=== PATIENT | female | born 1935 | race Two or more races ===

== ENCOUNTER 2017-03-02 21:37 | Inpatient (IN) | payer MEDICARE, MEDICAID ==
[~2017-03-02] VITALS: Ht 152.4 cm; Wt 52.2 kg
[2017-03-02] MEDS ORDERED: Albuterol ud Inhalation HHN ONE (21:45)
[2017-03-02 21:50] VITALS: BP 108/90
[2017-03-02 22:19] LABS: MEAN CORPUSCULAR HEMOGLOBIN 35.7 PG (27.0-31.0); MEAN CORPUSCULAR HGB CONC 35.5 G/DL (32.0-36.0); MEAN CORPUSCULAR VOLUME 100 FL (80-99); MEAN PLATELET VOLUME 15.8 FL (6.5-10.1); PLATELET COUNT 162 K/UL (150-450); RED BLOOD COUNT 4.13 M/UL (4.20-5.40); RED CELL DISTRIBUTION WIDTH 11.6 % (11.6-14.8); WHITE BLOOD COUNT 17.4 K/UL (4.8-10.8)
[2017-03-02 22:26] LABS: PROTHROMBIN TIME 10.2 SEC (9.30-11.50)
[2017-03-02 22:38] LABS: TROPONIN I < 0.30 ng/mL (<=0.30)
[2017-03-02 22:41] LABS: ALANINE AMINOTRANSFERASE 14 U/L (3-33); ANION GAP 21 (5-15); ASPARTATE AMINO TRANSFERASE 32 U/L (5-40); CARBON DIOXIDE 21 mEQ/L (20-30); CHLORIDE 94 mEQ/L (98-107); CREATININE 1.4 mg/dL (0.5-0.9); HEMOLYSIS 42; POTASSIUM 4.7 mEQ/L (3.4-4.9); SODIUM 136 mEQ/L (135-145); TOTAL PROTEIN 7.9 g/dL (6.6-8.7)
[2017-03-02] MEDS ORDERED: Zosyn 4.5gm inj ONE (22:43)
[2017-03-02] MEDS ORDERED: Piperacillin/Tazobactam 4.5 GM in NS 110 ML IVPB ONE (22:45)
[2017-03-02 22:52] LABS: CKMB 1.6 ng/mL (< 3.8)
[2017-03-02 22:55] LABS: REFLEX LACTIC ACID YES OR NO YES
[2017-03-02 23:06] LABS: APPEARANCE,URINE CLEAR; KETONES,URINE 2+ (NEGATIVE); LEUKOCYTE ESTERASE ,URINE 3+ (NEGATIVE); NITRITE,URINE NEGATIVE (NEGATIVE); PH,URINE 6 (4.5-8.0); PROTEIN,URINE 3+ (NEGATIVE); UROBILINOGEN,URINE 4 MG/DL (0.0-1.0)
[2017-03-02 23:10] LABS: BAND NEUTROPHILS % (MANUAL) 17 % (0-8); BASOPHILS % (MANUAL) 0 % (0-2); EOSINOPHILS % (MANUAL) 0 % (0-3); LYMPHOCYTES % (MANUAL) 7 % (20-45); NEUTROPHILS % (MANUAL) 71 % (45-75); PLATELET ESTIMATE ADEQUATE; PLATELET MORPHOLOGY NORMAL; TOTAL CELLS COUNTED 100
[2017-03-02 23:16] VITALS: BP 119/57
[2017-03-02 23:19] LABS: AMORPHOUS SEDIMENT,UR FEW /LPF; BACTERIA,URINE FEW /HPF; ICTOTEST NEGATIVE; SQUAMOUS EPITHELIAL CELL,UR FEW /LPF (NONE/OCC)
[2017-03-03] VITALS (21 sets, daily range): BP systolic 96–152; BP diastolic 41–105
--- NOTE | 2017-03-03 01:28 | Emergency Room Report ---
History of Present Illness General Chief Complaint: Dyspnea/Respdistress Source: Family Member, Medical Record, EMS Present Illness HPI Is a 77-year-old female with multiple medical problem. She resides in a residential. She has a previous history of sepsis. She presents with chief complaint shortness of breath. Onset for couple days. No fever or chills. She does complain of tightness in his chest with breathing. Described as burning her son. Coughing is nonproductive in nature. Subjective fever. Allergies: Coded Allergies: LORAZEPAM (Unverified Allergy, Unknown, 03/02/17) METOCLOPRAMIDE (Unverified Allergy, Unknown, 03/02/17) QUETIAPINE (Unverified Allergy, Unknown, 03/02/17) ZOLPIDEM (Unverified Allergy, Unknown, 03/02/17) Patient History Past Medical History: see triage record, old chart reviewed Past Surgical History: other Pertinent Family History: none Social History: Denies: alcohol use, drug use, smoking Now: No Immunizations: other Reviewed Nursing Documentation: PMH: Agreed, PSxH: Agreed Nursing Documentation-PMH Hx Cardiac Problems: Yes - atherosclerotic heart disease,hyperlipidemia Hx Diabetes: Yes Hx Cerebrovascular Accident: Yes - hemiplegia,hemiparesis Review of Systems Constitutional: Reports: malaise, weakness Eye: Denies: blurred vision, eye pain ENT: Denies: ear pain, nose congestion, throat swelling Respiratory: Reports: cough, shortness of breath Cardiovascular: Denies: chest pain, palpitations Gastrointestinal: Denies: abdominal pain, diarrhea, nausea, vomiting Musculoskeletal: Denies: back pain, joint pain Skin: Denies: rash Neurological: Denies: headache, numbness Endocrine: Denies: increased thirst, increased urine Hematologic/Lymphatic: Denies: easy bruising All Other Systems: negative except mentioned in HPI Physical Exam Vital Signs Date Time Temp Pulse Resp B/P Pulse Ox O2 Delivery O2 Flow Rate FiO2 03/02/17 21:28 99.7 109 30 108/90 99 Non-Rebreather 03/02/17 21:50 15.0 03/02/17 22:07 100 vitals with hypoxia and fever Sp02 EP Interpretation: reviewed, abnormal General Appearance: well appearing, alert, moderate distress Head: normocephalic, atraumatic Eyes: bilateral eye EOMI, bilateral eye PERRL ENT: hearing grossly normal, normal pharynx Neck: full range of motion, supple, no meningismus Respiratory: chest non-tender, decreased breath sounds, accessory muscle use, rhonchi Cardiovascular #1: regular rate, rhythm, no murmur, tachycardia Gastrointestinal: normal bowel sounds, non tender, no mass, no organomegaly, no bruit, non-distended Musculoskeletal: back normal, normal range of motion Neurologic: alert Psychiatric: mood/affect normal Skin: warm/dry Procedures Critical Care Time Critical Care Time Critical care is mandated in this patient who presented with severe sepsis and hypoxia. Patient require my urgent intervention to attenuate the risks of metabolic collapse which may lead to cardiovascular collapse and . Critical care time is 35 minutes excluding any reportable procedure. Critical care time included evaluation, multiple reevaluation, looking at old charts, interpreting laboratory and diagnostic data, discussing case with patient and family and consultants, and charting. Medical Decision Making Diagnostic Impression: Primary Impression: Acute respiratory failure with hypoxia Additional Impressions: Severe sepsis Pneumonia Qualified Codes: J18.1 - Lobar pneumonia, unspecified organism UTI (urinary tract infection) Qualified Codes: N30.00 - Acute cystitis without hematuria Proteinuria Qualified Codes: R80.9 - Proteinuria, unspecified Hyperglycemia due to type 2 diabetes mellitus Qualified Codes: E11.65 - Type 2 diabetes mellitus with hyperglycemia ER Course Issue with severe sepsis and not to pneumonia and UTI. Biaxin IV fluid started. Patient improving. Repeat lactic acid is pending. No evidence of ACS , PE, dissection to name a few. Laboratory Tests Test 03/02/17 21:45 03/02/17 22:40 White Blood Count 17.4 K/UL (4.8-10.8) H Red Blood Count 4.13 M/UL (4.20-5.40) L Hemoglobin 14.7 G/DL (12.0-16.0) Hematocrit 41.4 % (37.0-47.0) Mean Corpuscular Volume 100 FL (80-99) H Mean Corpuscular Hemoglobin 35.7 PG (27.0-31.0) H Mean Corpuscular Hemoglobin Concent 35.5 G/DL (32.0-36.0) Red Cell Distribution Width 11.6 % (11.6-14.8) Platelet Count 162 K/UL (150-450) Mean Platelet Volume 15.8 FL (6.5-10.1) H Neutrophils (%) (Auto) % (45.0-75.0) Lymphocytes (%) (Auto) % (20.0-45.0) Monocytes (%) (Auto) % (1.0-10.0) Eosinophils (%) (Auto) % (0.0-3.0) Basophils (%) (Auto) % (0.0-2.0) Differential Total Cells Counted 100 Neutrophils % (Manual) 71 % (45-75) Lymphocytes % (Manual) 7 % (20-45) L Monocytes % (Manual) 5 % (1-10) Eosinophils % (Manual) 0 % (0-3) Basophils % (Manual) 0 % (0-2) Band Neutrophils 17 % (0-8) H Platelet Estimate Adequate Platelet Morphology Normal Red Blood Cell Morphology Normal Prothrombin Time 10.2 SEC (9.30-11.50) Prothromb Time International Ratio 1.0 (0.9-1.1) Activated Partial Thromboplast Time 21 SEC (23-33) L Sodium Level 136 mEQ/L (135-145) Potassium Level 4.7 mEQ/L (3.4-4.9) Chloride Level 94 mEQ/L (98-107) L Carbon Dioxide Level 21 mEQ/L (20-30) Anion Gap 21 (5-15) H Blood Urea Nitrogen 31 mg/dL (7-23) H Creatinine 1.4 mg/dL (0.5-0.9) H Estimat Glomerular Filtration Rate mL/min (>60) Glucose Level 262 mg/dL (74-106) H Lactic Acid Level 5.60 mmol/L (0.66-2.22) H Calcium Level 11.0 mg/dL (8.6-10.2) H Total Bilirubin 1.0 mg/dL (0.0-1.2) Aspartate Amino Transf (AST/SGOT) 32 U/L (5-40) Alanine Aminotransferase (ALT/SGPT) 14 U/L (3-33) Alkaline Phosphatase 102 U/L (35-104) Total Creatine Kinase 58 U/L (26-140) Creatine Kinase MB 1.6 ng/mL (< 3.8) Creatine Kinase MB Relative Index 2.7 Troponin I < 0.30 ng/mL (<=0.30) Pro-B-Type Natriuretic Peptide 1119 pg/mL (0-450) H Total Protein 7.9 g/dL (6.6-8.7) Albumin 4.0 g/dL (3.5-5.2) Globulin 3.9 g/dL Albumin/Globulin Ratio 1.0 (1.0-2.7) Urine Color Yellow Urine Appearance Clear Urine pH 6 (4.5-8.0) Urine Specific [place] 1.015 (1.005-1.035) Urine Protein 3+ (NEGATIVE) H Urine Glucose (UA) Negative (NEGATIVE) Urine Ketones 2+ (NEGATIVE) H Urine Occult Blood 2+ (NEGATIVE) H Urine Nitrite Negative (NEGATIVE) Urine Bilirubin 1+ (NEGATIVE) H Urine Ictotest Negative Urine Urobilinogen 4 MG/DL (0.0-1.0) H Urine Leukocyte Esterase 3+ (NEGATIVE) H Urine RBC 2-4 /HPF (0 - 2) H Urine WBC 5-10 /HPF (0 - 2) H Urine Squamous Epithelial Cells Few /LPF (NONE/OCC) Urine Amorphous Sediment Few /LPF (NONE) H Urine Bacteria Few /HPF (NONE) Lab Results Impression labs with leukocytosis and bandemia EKG Diagnostic Results EKG Time: :27 Rate: normal Rhythm: NSR, other - Nonspecific ST changes Rhythm Strip Diag. Results Rhythm Strip Time: :27 EP Interpretation: yes Rate: 100 Rhythm: NSR, no PVC's Chest X-Ray Diagnostic Results Chest X-Ray Diagnostic Results : Chest X-Ray Ordered: Yes # of Views/Limited/Complete: 1 View Indication: Shortness of Breath EP Interpretation: Yes Interpretation: no effusion, no pneumothorax, other - Right lower lobe density show infiltrates Impression: Other - Right lower lobe infiltrate Interpreting ER Provider: electronically signed by Vahid Recinos MD Last Vital Signs Date Time Temp Pulse Resp B/P Pulse Ox O2 Delivery O2 Flow Rate FiO2 03/02/17 23:16 117 22 119/57 100 Non-Rebreather 15.0 03/02/17 22:10 100 03/02/17 21:50 99.7 Status: improved Disposition: ADMITTED INPATIENT Condition: Serious Referrals: NON PHYSICIAN (PCP) VAHID RECINOS M.D. Mar 03, 2017 01:28
[2017-03-03 01:58] LABS: ABG ALLEN TEST POSITIVE; ABG BASE EXCESS -7.8; ABG PCO2 34.6 mmHg (35.0-45.0)
[2017-03-03] MEDS ORDERED: Vancomycin 1 GM in D5W 275 ML IVPB ONE (02:15)
[2017-03-03] MEDS ORDERED: Morphine Sulfate 4mg/ml Inj IVP PRN ×2 (07:30→22:00)
[2017-03-03] MEDS ORDERED: Miralax 17gm pkt ORAL PRN ×2 (07:30→22:00)
[2017-03-03] MEDS ORDERED: Promethazine/Codeine 5ml UD ORAL PRN ×2 (07:30→22:00)
[2017-03-03] MEDS ORDERED: DuoNeb 0.5-3(2.5)mg/3ml neb HHN PRN ×2 (07:30→22:00)
[2017-03-03] MEDS ORDERED: Vancomycin 750mg/D5W 275ml IVPB ONE ×2 (08:30)
[2017-03-03 08:37] LABS: APPEARANCE,URINE CLEAR; KETONES,URINE NEGATIVE (NEGATIVE); LEUKOCYTE ESTERASE ,URINE 1+ (NEGATIVE); NITRITE,URINE NEGATIVE (NEGATIVE); PH,URINE 7 (4.5-8.0); PROTEIN,URINE 2+ (NEGATIVE); UROBILINOGEN,URINE NORMAL MG/DL (0.0-1.0)
[2017-03-03 08:44] LABS: MEAN CORPUSCULAR HGB CONC 33.7 G/DL (32.0-36.0); MEAN CORPUSCULAR VOLUME 101 FL (80-99); MEAN PLATELET VOLUME 13.7 FL (6.5-10.1); PLATELET COUNT 127 K/UL (150-450); RED BLOOD COUNT 3.39 M/UL (4.20-5.40); RED CELL DISTRIBUTION WIDTH 11.9 % (11.6-14.8); WHITE BLOOD COUNT 4.2 K/UL (4.8-10.8)
[2017-03-03 08:50] LABS: BACTERIA,URINE FEW /HPF; SQUAMOUS EPITHELIAL CELL,UR FEW /LPF (NONE/OCC); WBC,URINE 0-2 /HPF (0 - 2)
[2017-03-03 08:52] LABS: ALANINE AMINOTRANSFERASE 9 U/L (3-33); ALBUMIN/GLOBULIN RATIO 1.1 (1.0-2.7); ANION GAP 13 (5-15); ASPARTATE AMINO TRANSFERASE 27 U/L (5-40); CALCIUM 9.3 mg/dL (8.6-10.2); CARBON DIOXIDE 21 mEQ/L (20-30); CHLORIDE 106 mEQ/L (98-107); CREATININE 1.1 mg/dL (0.5-0.9); HEMOLYSIS 4; POTASSIUM 3.9 mEQ/L (3.4-4.9); SODIUM 140 mEQ/L (135-145); TOTAL PROTEIN 6.3 g/dL (6.6-8.7); URIC ACID 4.4 mg/dL (3.0-7.5)
[2017-03-03] MEDS: Heparin 5000 units/ml inj SUBQ SCH ×2 (08:53→20:27)
[2017-03-03 08:54] LABS: REFLEX LACTIC ACID YES OR NO YES
[2017-03-03] MEDS ORDERED: Cefepime HCl 2 GM in D5W 110 ML IV SCH (09:00)
[2017-03-03 09:01] LABS: MAGNESIUM 1.6 mg/dL (1.7-2.5); PHOSPHORUS 1.9 mg/dL (2.5-4.8)
--- NOTE | 2017-03-03 09:24 | History and Physical ---
History of Present Illness General Date patient seen: Mar 03, 2017 Reason for Hospitalization: Dyspnea/Respdistress Present Illness HPI 77-year-old female with PMHx of Dementia, Gtube feeding, residential resident brought in by paramedics with chief complaint shortness of breath for couple of days. No fever or chills. She does complain of tightness in his chest with breathing. Coughing is nonproductive in nature. Subjective fever. She was found to have increased lactic acid and was high risk for respiratory failure. She is admitted to ICU for further evaluation. Allergies: Coded Allergies: LORAZEPAM (Unverified Allergy, Unknown, 03/02/17) METOCLOPRAMIDE (Unverified Allergy, Unknown, 03/02/17) QUETIAPINE (Unverified Allergy, Unknown, 03/02/17) ZOLPIDEM (Unverified Allergy, Unknown, 03/02/17) Patient History Healthcare decision maker Resuscitation status Full Code Advanced Directive on File No Past Medical/Surgical History Past Medical/Surgical History: (1) Advanced dementia (2) Feeding by G-tube Review of Systems All Other Systems: negative except mentioned in HPI Physical Exam General Appearance: cachetic Lines, tubes and drains: peripheral HEENT: normocephalic, atraumatic Neck: non-tender, supple Respiratory/Chest: chest wall non-tender, lungs clear Breasts: no masses Cardiovascular/Chest: normal peripheral pulses, regularly irregular Abdomen: normal bowel sounds Last 24 Hour Vital Signs Date Time Temp Pulse Resp B/P Pulse Ox O2 Delivery O2 Flow Rate FiO2 03/03/17 07:00 98 25 112/43 97 Non-Rebreather 100 03/03/17 06:00 101 25 152/80 97 Non-Rebreather 100 03/03/17 05:00 99 25 110/65 97 Non-Rebreather 100 03/03/17 04:08 115 25 104/65 97 Non-Rebreather 100 03/03/17 03:00 123 03/03/17 03:00 98.4 120 30 124/46 95 Non-Rebreather 100 03/03/17 02:25 113 22 148/105 98 Non-Rebreather 15.0 03/03/17 01:15 99.8 113 22 148/105 100 Non-Rebreather 15.0 03/02/17 23:16 117 22 119/57 100 Non-Rebreather 15.0 03/02/17 22:10 118 20 98 Non-Rebreather 15.0 100 03/02/17 22:09 109 20 97 Non-Rebreather 15.0 100 03/02/17 22:07 109 20 Non-Rebreather 15.0 100 03/02/17 21:50 109 30 Non-Rebreather 15.0 03/02/17 21:50 99.7 109 30 108/90 99 Non-Rebreather 03/02/17 21:28 99.7 109 30 108/90 99 Non-Rebreather Intake and Output 03/02/17 03/03/17 19:00 07:00 Intake Total 110 ml Output Total 252 ml Balance -142 ml Intake IV Total 110 ml Output Urine Total 250 ml Stool Total 2 ml # Bowel Movements 4 Laboratory Tests Test 03/02/17 21:43 03/02/17 21:45 03/02/17 22:40 03/03/17 00:30 Arterial Blood pH 7.319 (7.350-7.450) Arterial Blood Partial Pressure CO2 34.6 mmHg (35.0-45.0) L Arterial Blood Partial Pressure O2 76.3 mmHg (75.0-100.0) Arterial Blood HCO3 17.4 mmol/L (22.0-26.0) L Arterial Blood Oxygen Saturation 93.2 % (92.0-98.0) Arterial Blood Base Excess -7.8 Shaun Test Positive White Blood Count 17.4 K/UL (4.8-10.8) H Red Blood Count 4.13 M/UL (4.20-5.40) L Hemoglobin 14.7 G/DL (12.0-16.0) Hematocrit 41.4 % (37.0-47.0) Mean Corpuscular Volume 100 FL (80-99) H Mean Corpuscular Hemoglobin 35.7 PG (27.0-31.0) H Mean Corpuscular Hemoglobin Concent 35.5 G/DL (32.0-36.0) Red Cell Distribution Width 11.6 % (11.6-14.8) Platelet Count 162 K/UL (150-450) Mean Platelet Volume 15.8 FL (6.5-10.1) H Neutrophils (%) (Auto) % (45.0-75.0) Lymphocytes (%) (Auto) % (20.0-45.0) Monocytes (%) (Auto) % (1.0-10.0) Eosinophils (%) (Auto) % (0.0-3.0) Basophils (%) (Auto) % (0.0-2.0) Differential Total Cells Counted 100 Neutrophils % (Manual) 71 % (45-75) Lymphocytes % (Manual) 7 % (20-45) L Monocytes % (Manual) 5 % (1-10) Eosinophils % (Manual) 0 % (0-3) Basophils % (Manual) 0 % (0-2) Band Neutrophils 17 % (0-8) H Platelet Estimate Adequate Platelet Morphology Normal Red Blood Cell Morphology Normal Prothrombin Time 10.2 SEC (9.30-11.50) Prothromb Time International Ratio 1.0 (0.9-1.1) Activated Partial Thromboplast Time 21 SEC (23-33) L Sodium Level 136 mEQ/L (135-145) Potassium Level 4.7 mEQ/L (3.4-4.9) Chloride Level 94 mEQ/L (98-107) L Carbon Dioxide Level 21 mEQ/L (20-30) Anion Gap 21 (5-15) H Blood Urea Nitrogen 31 mg/dL (7-23) H Creatinine 1.4 mg/dL (0.5-0.9) H Estimat Glomerular Filtration Rate mL/min (>60) Glucose Level 262 mg/dL (74-106) H Lactic Acid Level 5.60 mmol/L (0.66-2.22) H 9.10 mmol/L (0.66-2.22) H Calcium Level 11.0 mg/dL (8.6-10.2) H Total Bilirubin 1.0 mg/dL (0.0-1.2) Aspartate Amino Transf (AST/SGOT) 32 U/L (5-40) Alanine Aminotransferase (ALT/SGPT) 14 U/L (3-33) Alkaline Phosphatase 102 U/L (35-104) Total Creatine Kinase 58 U/L (26-140) Creatine Kinase MB 1.6 ng/mL (< 3.8) Creatine Kinase MB Relative Index 2.7 Troponin I < 0.30 ng/mL (<=0.30) Pro-B-Type Natriuretic Peptide 1119 pg/mL (0-450) H Total Protein 7.9 g/dL (6.6-8.7) Albumin 4.0 g/dL (3.5-5.2) Globulin 3.9 g/dL Albumin/Globulin Ratio 1.0 (1.0-2.7) Urine Color Yellow Urine Appearance Clear Urine pH 6 (4.5-8.0) Urine Specific [place] 1.015 (1.005-1.035) Urine Protein 3+ (NEGATIVE) H Urine Glucose (UA) Negative (NEGATIVE) Urine Ketones 2+ (NEGATIVE) H Urine Occult Blood 2+ (NEGATIVE) H Urine Nitrite Negative (NEGATIVE) Urine Bilirubin 1+ (NEGATIVE) H Urine Ictotest Negative Urine Urobilinogen 4 MG/DL (0.0-1.0) H Urine Leukocyte Esterase 3+ (NEGATIVE) H Urine RBC 2-4 /HPF (0 - 2) H Urine WBC 5-10 /HPF (0 - 2) H Urine Squamous Epithelial Cells Few /LPF (NONE/OCC) Urine Amorphous Sediment Few /LPF (NONE) H Urine Bacteria Few /HPF (NONE) Test 03/03/17 07:30 03/03/17 07:45 Urine Color Pale yellow Urine Appearance Clear Urine pH 7 (4.5-8.0) Urine Specific [place] 1.005 (1.005-1.035) Urine Protein 2+ (NEGATIVE) H Urine Glucose (UA) 2+ (NEGATIVE) H Urine Ketones Negative (NEGATIVE) Urine Occult Blood 3+ (NEGATIVE) H Urine Nitrite Negative (NEGATIVE) Urine Bilirubin Negative (NEGATIVE) Urine Urobilinogen Normal MG/DL (0.0-1.0) Urine Leukocyte Esterase 1+ (NEGATIVE) H Urine RBC 5-10 /HPF (0 - 2) H Urine WBC 0-2 /HPF (0 - 2) Urine Squamous Epithelial Cells Few /LPF (NONE/OCC) Urine Bacteria Few /HPF (NONE) Urine Eosinophils Rare Urine Random Sodium 126 mmol/L Urine Potassium Timed 31 mmol/L White Blood Count 4.2 K/UL (4.8-10.8) #L Red Blood Count 3.39 M/UL (4.20-5.40) L Hemoglobin 11.5 G/DL (12.0-16.0) L Hematocrit 34.2 % (37.0-47.0) L Mean Corpuscular Volume 101 FL (80-99) H Mean Corpuscular Hemoglobin 34.0 PG (27.0-31.0) H Mean Corpuscular Hemoglobin Concent 33.7 G/DL (32.0-36.0) Red Cell Distribution Width 11.9 % (11.6-14.8) Platelet Count 127 K/UL (150-450) L Mean Platelet Volume 13.7 FL (6.5-10.1) H Neutrophils (%) (Auto) % (45.0-75.0) Lymphocytes (%) (Auto) % (20.0-45.0) Monocytes (%) (Auto) % (1.0-10.0) Eosinophils (%) (Auto) % (0.0-3.0) Basophils (%) (Auto) % (0.0-2.0) Neutrophils % (Manual) Pending Lymphocytes % (Manual) Pending Platelet Estimate Pending Platelet Morphology Pending Sodium Level 140 mEQ/L (135-145) Potassium Level 3.9 mEQ/L (3.4-4.9) Chloride Level 106 mEQ/L (98-107) Carbon Dioxide Level 21 mEQ/L (20-30) Anion Gap 13 (5-15) Blood Urea Nitrogen 27 mg/dL (7-23) H Creatinine 1.1 mg/dL (0.5-0.9) H Estimat Glomerular Filtration Rate mL/min (>60) Glucose Level 284 mg/dL (74-106) H Lactic Acid Level 4.30 mmol/L (0.66-2.22) H Uric Acid 4.4 mg/dL (3.0-7.5) Calcium Level 9.3 mg/dL (8.6-10.2) Phosphorus Level 1.9 mg/dL (2.5-4.8) L Magnesium Level 1.6 mg/dL (1.7-2.5) L Total Bilirubin 0.7 mg/dL (0.0-1.2) Aspartate Amino Transf (AST/SGOT) 27 U/L (5-40) Alanine Aminotransferase (ALT/SGPT) 9 U/L (3-33) Alkaline Phosphatase 66 U/L (35-104) Total Creatine Kinase 84 U/L (26-140) Total Protein 6.3 g/dL (6.6-8.7) L Albumin 3.3 g/dL (3.5-5.2) L Globulin 3.0 g/dL Albumin/Globulin Ratio 1.1 (1.0-2.7) Height (Feet): 5 Height (Inches): 11.00 Weight (Pounds): 107 Medications Current Medications Medications (Trade) Dose Ordered Sig/Ramiro Route PRN Reason Start Time Stop Time Status Last Admin Dose Admin Acetaminophen (Tylenol) 650 mg Q4H PRN ORAL fever>100.1 03/03/17 07:30 04/02/17 07:29 Albuterol/ Ipratropium 3 ml 3 ml Q4H PRN HHN Shortness of Breath 03/03/17 07:30 03/08/17 07:29 Cefepime HCl/ Dextrose (Maxipime/D5W) 110 ml @ 220 mls/hr Q24H IV 03/03/17 09:00 03/10/17 08:59 03/03/17 08:34 Dextrose (Dextrose 50%) STAT PRN IV Hypoglycemia 03/03/17 07:30 04/02/17 07:29 Heparin Sodium (Porcine) 5000 units 5,000 units EVERY 12 HOURS SUBQ 03/03/17 09:00 04/02/17 08:59 03/03/17 08:53 Insulin Aspart (NovoLOG) BEFORE MEALS AND HS SUBQ 03/03/17 11:30 04/02/17 11:29 Morphine Sulfate (Morphine Sulfate) 4 mg Q4H PRN IVP Severe Pain (Pain Scale 7-10) 03/03/17 07:30 03/10/17 07:29 Ondansetron HCl (Zofran) 4 mg Q6H PRN IVP Nausea & Vomiting 03/03/17 07:30 04/02/17 07:29 Polyethylene Glycol (Miralax) 17 gm DAILYPRN PRN ORAL Constipation 03/03/17 07:30 04/02/17 07:29 Promethazine HCl/ Codeine (Phenergan with Codeine) 5 ml Q4H PRN ORAL For Cough 03/03/17 07:30 04/02/17 07:29 Sodium Chloride 1,000 ml @ 50 mls/hr Q20H IV 03/03/17 08:00 04/02/17 07:59 03/03/17 08:00 Vancomycin HCl 750 mg/Dextrose 275 ml @ 183.708 mls/hr ONCE ONCE IVPB 03/03/17 08:30 03/03/17 09:59 03/03/17 08:34 Vancomycin HCl/ Dextrose (Vancomycin/D5W) 110 ml @ 110 mls/hr Q24H IVPB 03/04/17 08:00 03/09/17 07:59 Assessment/Plan Problem List: (1) Severe sepsis ICD Codes: A41.9 - Sepsis, unspecified organism; R65.20 - Severe sepsis without septic shock SNOMED: 73173652, 622898327 (2) Acute respiratory failure with hypoxia ICD Codes: J96.01 - Acute respiratory failure with hypoxia SNOMED: 43428133, 150076972 (3) Pneumonia ICD Codes: J18.9 - Pneumonia, unspecified organism SNOMED: 649269031, 55177070 Qualifiers: (4) Hyperglycemia due to type 2 diabetes mellitus ICD Codes: E11.65 - Type 2 diabetes mellitus with hyperglycemia SNOMED: 646245143591624, 48510084 Qualifiers: (5) UTI (urinary tract infection) ICD Codes: N39.0 - Urinary tract infection, site not specified SNOMED: 88583221, 12843750 Qualifiers: (6) Feeding by G-tube ICD Codes: Z93.1 - Gastrostomy status SNOMED: 386529312, 433649211 (7) Advanced dementia ICD Codes: F03.90 - Unspecified dementia without behavioral disturbance SNOMED: 67859448 Respiratory: monitor respiratory rate, adjust FIO2 Cardiac: continue to monitor HR/BP Renal: F/U I&O, keep IV fluid, check electrolytes, other - 1/2 ns 50n cc.hour Infectious Disease: continue antibiotics Gastrointestinal: continue feedings/current rate Endocrine: monitor blood sugar, check HgA1C Hematologic: monitor H/H, transfuse if hgb<8.5 Neurologic: PRN Ativan, PRN Morphine, keep patient comfortable Affect: PRN ativan Prophylaxis: Protonix Notes Reviewed: cardio Discussed with: nurses, consultants, counseling case manager ZAIRA ROSALES Mar 03, 2017 09:24
[2017-03-03 09:56] LABS: BAND NEUTROPHILS % (MANUAL) 30 % (0-8); BASOPHILS % (MANUAL) 0 % (0-2); EOSINOPHILS % (MANUAL) 0 % (0-3); LYMPHOCYTES % (MANUAL) 15 % (20-45); MACROCYTES 1+; NEUTROPHILS % (MANUAL) 49 % (45-75); PLATELET ESTIMATE DECREASED; PLATELET MORPHOLOGY NORMAL; TOTAL CELLS COUNTED 100
--- NOTE | 2017-03-03 10:17 | Diagnostic Imaging Report ---
Indication: Dyspnea Comparison: None A single view chest radiograph was obtained. Findings: Interstitial opacities are noted centrally at the lung bases as well. Heart size is normal. Bones are osteopenic. Aorta is calcified. There are cholecystectomy clips in the right upper quadrant of abdomen. Impression: Central infiltrates versus interstitial edema. Please correlate clinically
[2017-03-03] MEDS ORDERED: Sodium Phosphate 20 MM in NS 275 ML IV ONE (11:00)
[2017-03-03] MEDS ORDERED: Norco 5mg/325mg tab GT PRN ×3 (11:15→22:00)
[2017-03-03] MEDS ORDERED: NovoLOG Insulin Flexpen SUBQ SCH ×2 (11:30→18:00)
--- NOTE | 2017-03-03 13:01 | Infectious Diseases Prog Note ---
Assessment/Plan Assessment/Plan ID consult dictated # [id number] Subjective Allergies: Coded Allergies: LORAZEPAM (Unverified Allergy, Unknown, 03/02/17) METOCLOPRAMIDE (Unverified Allergy, Unknown, 03/02/17) QUETIAPINE (Unverified Allergy, Unknown, 03/02/17) ZOLPIDEM (Unverified Allergy, Unknown, 03/02/17) Objective Vital Signs Last 24 Hour Vital Signs Date Time Temp Pulse Resp B/P Pulse Ox O2 Delivery O2 Flow Rate FiO2 03/03/17 11:00 97 30 117/70 98 Venturi Mask 55 03/03/17 10:28 98 Venturi Mask 14.0 55 03/03/17 10:27 Venturi Mask 14.0 55 03/03/17 10:26 98 20 Venturi Mask 14.0 55 03/03/17 10:00 107 30 118/42 98 Venturi Mask 55 03/03/17 09:00 103 28 102/85 99 Non-Rebreather 100 03/03/17 08:00 98.5 99 25 107/66 100 Non-Rebreather 100 03/03/17 08:00 109 03/03/17 07:00 98 25 112/43 97 Non-Rebreather 100 03/03/17 06:00 101 25 152/80 97 Non-Rebreather 100 03/03/17 05:00 99 25 110/65 97 Non-Rebreather 100 03/03/17 04:08 115 25 104/65 97 Non-Rebreather 100 03/03/17 03:00 123 03/03/17 03:00 98.4 120 30 124/46 95 Non-Rebreather 100 03/03/17 02:25 113 22 148/105 98 Non-Rebreather 15.0 03/03/17 01:15 99.8 113 22 148/105 100 Non-Rebreather 15.0 03/02/17 23:16 117 22 119/57 100 Non-Rebreather 15.0 03/02/17 22:10 118 20 98 Non-Rebreather 15.0 100 03/02/17 22:09 109 20 97 Non-Rebreather 15.0 100 03/02/17 22:07 109 20 Non-Rebreather 15.0 100 03/02/17 21:50 109 30 Non-Rebreather 15.0 03/02/17 21:50 99.7 109 30 108/90 99 Non-Rebreather 03/02/17 21:28 99.7 109 30 108/90 99 Non-Rebreather Height (Feet): 5 Height (Inches): 11.00 Weight (Pounds): 107 Laboratory Tests Test 03/02/17 21:43 03/02/17 21:45 03/02/17 22:40 03/03/17 00:30 Arterial Blood pH 7.319 (7.350-7.450) Arterial Blood Partial Pressure CO2 34.6 mmHg (35.0-45.0) L Arterial Blood Partial Pressure O2 76.3 mmHg (75.0-100.0) Arterial Blood HCO3 17.4 mmol/L (22.0-26.0) L Arterial Blood Oxygen Saturation 93.2 % (92.0-98.0) Arterial Blood Base Excess -7.8 Shaun Test Positive White Blood Count 17.4 K/UL (4.8-10.8) H Red Blood Count 4.13 M/UL (4.20-5.40) L Hemoglobin 14.7 G/DL (12.0-16.0) Hematocrit 41.4 % (37.0-47.0) Mean Corpuscular Volume 100 FL (80-99) H Mean Corpuscular Hemoglobin 35.7 PG (27.0-31.0) H Mean Corpuscular Hemoglobin Concent 35.5 G/DL (32.0-36.0) Red Cell Distribution Width 11.6 % (11.6-14.8) Platelet Count 162 K/UL (150-450) Mean Platelet Volume 15.8 FL (6.5-10.1) H Neutrophils (%) (Auto) % (45.0-75.0) Lymphocytes (%) (Auto) % (20.0-45.0) Monocytes (%) (Auto) % (1.0-10.0) Eosinophils (%) (Auto) % (0.0-3.0) Basophils (%) (Auto) % (0.0-2.0) Differential Total Cells Counted 100 Neutrophils % (Manual) 71 % (45-75) Lymphocytes % (Manual) 7 % (20-45) L Monocytes % (Manual) 5 % (1-10) Eosinophils % (Manual) 0 % (0-3) Basophils % (Manual) 0 % (0-2) Band Neutrophils 17 % (0-8) H Platelet Estimate Adequate Platelet Morphology Normal Red Blood Cell Morphology Normal Prothrombin Time 10.2 SEC (9.30-11.50) Prothromb Time International Ratio 1.0 (0.9-1.1) Activated Partial Thromboplast Time 21 SEC (23-33) L Sodium Level 136 mEQ/L (135-145) Potassium Level 4.7 mEQ/L (3.4-4.9) Chloride Level 94 mEQ/L (98-107) L Carbon Dioxide Level 21 mEQ/L (20-30) Anion Gap 21 (5-15) H Blood Urea Nitrogen 31 mg/dL (7-23) H Creatinine 1.4 mg/dL (0.5-0.9) H Estimat Glomerular Filtration Rate mL/min (>60) Glucose Level 262 mg/dL (74-106) H Lactic Acid Level 5.60 mmol/L (0.66-2.22) H 9.10 mmol/L (0.66-2.22) H Calcium Level 11.0 mg/dL (8.6-10.2) H Total Bilirubin 1.0 mg/dL (0.0-1.2) Aspartate Amino Transf (AST/SGOT) 32 U/L (5-40) Alanine Aminotransferase (ALT/SGPT) 14 U/L (3-33) Alkaline Phosphatase 102 U/L (35-104) Total Creatine Kinase 58 U/L (26-140) Creatine Kinase MB 1.6 ng/mL (< 3.8) Creatine Kinase MB Relative Index 2.7 Troponin I < 0.30 ng/mL (<=0.30) Pro-B-Type Natriuretic Peptide 1119 pg/mL (0-450) H Total Protein 7.9 g/dL (6.6-8.7) Albumin 4.0 g/dL (3.5-5.2) Globulin 3.9 g/dL Albumin/Globulin Ratio 1.0 (1.0-2.7) Urine Color Yellow Urine Appearance Clear Urine pH 6 (4.5-8.0) Urine Specific [place] 1.015 (1.005-1.035) Urine Protein 3+ (NEGATIVE) H Urine Glucose (UA) Negative (NEGATIVE) Urine Ketones 2+ (NEGATIVE) H Urine Occult Blood 2+ (NEGATIVE) H Urine Nitrite Negative (NEGATIVE) Urine Bilirubin 1+ (NEGATIVE) H Urine Ictotest Negative Urine Urobilinogen 4 MG/DL (0.0-1.0) H Urine Leukocyte Esterase 3+ (NEGATIVE) H Urine RBC 2-4 /HPF (0 - 2) H Urine WBC 5-10 /HPF (0 - 2) H Urine Squamous Epithelial Cells Few /LPF (NONE/OCC) Urine Amorphous Sediment Few /LPF (NONE) H Urine Bacteria Few /HPF (NONE) Test 03/03/17 07:30 03/03/17 07:45 Urine Color Pale yellow Urine Appearance Clear Urine pH 7 (4.5-8.0) Urine Specific [place] 1.005 (1.005-1.035) Urine Protein 2+ (NEGATIVE) H Urine Glucose (UA) 2+ (NEGATIVE) H Urine Ketones Negative (NEGATIVE) Urine Occult Blood 3+ (NEGATIVE) H Urine Nitrite Negative (NEGATIVE) Urine Bilirubin Negative (NEGATIVE) Urine Urobilinogen Normal MG/DL (0.0-1.0) Urine Leukocyte Esterase 1+ (NEGATIVE) H Urine RBC 5-10 /HPF (0 - 2) H Urine WBC 0-2 /HPF (0 - 2) Urine Squamous Epithelial Cells Few /LPF (NONE/OCC) Urine Bacteria Few /HPF (NONE) Urine Eosinophils Rare Urine Random Sodium 126 mmol/L Urine Potassium Timed 31 mmol/L White Blood Count 4.2 K/UL (4.8-10.8) #L Red Blood Count 3.39 M/UL (4.20-5.40) L Hemoglobin 11.5 G/DL (12.0-16.0) L Hematocrit 34.2 % (37.0-47.0) L Mean Corpuscular Volume 101 FL (80-99) H Mean Corpuscular Hemoglobin 34.0 PG (27.0-31.0) H Mean Corpuscular Hemoglobin Concent 33.7 G/DL (32.0-36.0) Red Cell Distribution Width 11.9 % (11.6-14.8) Platelet Count 127 K/UL (150-450) L Mean Platelet Volume 13.7 FL (6.5-10.1) H Neutrophils (%) (Auto) % (45.0-75.0) Lymphocytes (%) (Auto) % (20.0-45.0) Monocytes (%) (Auto) % (1.0-10.0) Eosinophils (%) (Auto) % (0.0-3.0) Basophils (%) (Auto) % (0.0-2.0) Differential Total Cells Counted 100 Neutrophils % (Manual) 49 % (45-75) Lymphocytes % (Manual) 15 % (20-45) L Monocytes % (Manual) 6 % (1-10) Eosinophils % (Manual) 0 % (0-3) Basophils % (Manual) 0 % (0-2) Band Neutrophils 30 % (0-8) H Platelet Estimate Decreased L Platelet Morphology Normal Macrocytosis 1+ Sodium Level 140 mEQ/L (135-145) Potassium Level 3.9 mEQ/L (3.4-4.9) Chloride Level 106 mEQ/L (98-107) Carbon Dioxide Level 21 mEQ/L (20-30) Anion Gap 13 (5-15) Blood Urea Nitrogen 27 mg/dL (7-23) H Creatinine 1.1 mg/dL (0.5-0.9) H Estimat Glomerular Filtration Rate mL/min (>60) Glucose Level 284 mg/dL (74-106) H Lactic Acid Level 4.30 mmol/L (0.66-2.22) H Uric Acid 4.4 mg/dL (3.0-7.5) Calcium Level 9.3 mg/dL (8.6-10.2) Phosphorus Level 1.9 mg/dL (2.5-4.8) L Magnesium Level 1.6 mg/dL (1.7-2.5) L Total Bilirubin 0.7 mg/dL (0.0-1.2) Aspartate Amino Transf (AST/SGOT) 27 U/L (5-40) Alanine Aminotransferase (ALT/SGPT) 9 U/L (3-33) Alkaline Phosphatase 66 U/L (35-104) Lactate Dehydrogenase 220 U/L (135-230) Total Creatine Kinase 84 U/L (26-140) Total Protein 6.3 g/dL (6.6-8.7) L Albumin 3.3 g/dL (3.5-5.2) L Globulin 3.0 g/dL Albumin/Globulin Ratio 1.1 (1.0-2.7) Current Medications Medications (Trade) Dose Ordered Sig/Ramiro Route PRN Reason Start Time Stop Time Status Last Admin Dose Admin Acetaminophen (Tylenol) 650 mg Q4H PRN ORAL fever>100.1 03/03/17 07:30 04/02/17 07:29 Acetaminophen/ Hydrocodone Bitart ([place] 5/325) 2 tab Q6H PRN GT Moderate Pain (Pain Scale 4-6) 03/03/17 12:00 03/10/17 11:59 03/03/17 11:53 Albuterol/ Ipratropium 3 ml 3 ml Q4H PRN HHN Shortness of Breath 03/03/17 07:30 03/08/17 07:29 Cefepime HCl/ Dextrose (Maxipime/D5W) 110 ml @ 220 mls/hr Q24H IV 03/03/17 09:00 03/10/17 08:59 03/03/17 08:34 Dextrose (Dextrose 50%) STAT PRN IV Hypoglycemia 03/03/17 07:30 04/02/17 07:29 Famotidine (Pepcid I.v.) 20 mg Q12HR IVP 03/03/17 21:00 04/02/17 20:59 Heparin Sodium (Porcine) 5000 units 5,000 units EVERY 12 HOURS SUBQ 03/03/17 09:00 04/02/17 08:59 03/03/17 08:53 Insulin Aspart (NovoLOG) BEFORE MEALS AND HS SUBQ 03/03/17 11:30 04/02/17 11:29 03/03/17 11:39 Magnesium Sulfate (Magnesium Sulfate 1gm/100ml) 100 ml @ 100 mls/hr Q1H IVPB 03/03/17 17:00 03/03/17 18:59 Morphine Sulfate (Morphine Sulfate) 4 mg Q4H PRN IVP Severe Pain (Pain Scale 7-10) 03/03/17 07:30 03/10/17 07:29 Ondansetron HCl (Zofran) 4 mg Q6H PRN IVP Nausea & Vomiting 03/03/17 07:30 04/02/17 07:29 Polyethylene Glycol (Miralax) 17 gm DAILYPRN PRN ORAL Constipation 03/03/17 07:30 04/02/17 07:29 Promethazine HCl/ Codeine (Phenergan with Codeine) 5 ml Q4H PRN ORAL For Cough 03/03/17 07:30 04/02/17 07:29 Sodium Chloride 1,000 ml @ 50 mls/hr Q20H IV 03/03/17 08:00 04/02/17 07:59 03/03/17 08:00 Sodium Phosphate 20 mm/Sodium Chloride 281.6667 ml @ 46.9 mls/hr ONCE ONCE IV 03/03/17 11:00 03/03/17 17:00 03/03/17 11:53 Vancomycin HCl 500 mg/Dextrose 110 ml @ 110 mls/hr Q24H IVPB 03/04/17 08:00 03/09/17 07:59 LEON HINES Mar 03, 2017 13:01
[2017-03-03] MEDS ORDERED: 1/2 NS 1000ml IV ONE (16:52)
[2017-03-03] MEDS ORDERED: Tubing IV Secondary IV ONE (16:52)
--- NOTE | 2017-03-03 17:50 | Cardiology Report ---
APPROVED REPORT EKG Measurement Heart [id number] Sinus tachycardia Right bundle branch block Septal infarct, age undetermined Abnormal ECG
[2017-03-03] MEDS ORDERED: Famotidine 20 MG/ 2ML VIAL IVP SCH (21:00)
[2017-03-03] MEDS ORDERED: Vancomycin 1 GM in D5W 275 ML IV SCH (23:00)
[2017-03-03] MEDS: NovoLOG Insulin Flexpen SUBQ SCH (23:09)
[2017-03-04] VITALS: BP 112/75
[2017-03-04 04:00] VITALS: BP 118/72
[2017-03-04 05:12] LABS: BASOPHILS % (AUTO) 0.9 % (0.0-2.0); EOSINOPHILS % (AUTO) 4.4 % (0.0-3.0); LYMPHOCYTES % (AUTO) 7.6 % (20.0-45.0); MEAN CORPUSCULAR HEMOGLOBIN 35.8 PG (27.0-31.0); MEAN CORPUSCULAR HGB CONC 35.6 G/DL (32.0-36.0); MEAN CORPUSCULAR VOLUME 101 FL (80-99); MEAN PLATELET VOLUME 13.6 FL (6.5-10.1); MONOCYTES % (AUTO) 4.7 % (1.0-10.0); NEUTROPHILS % (AUTO) 82.4 % (45.0-75.0); PLATELET COUNT 112 K/UL (150-450); RED BLOOD COUNT 2.96 M/UL (4.20-5.40); RED CELL DISTRIBUTION WIDTH 11.6 % (11.6-14.8); WHITE BLOOD COUNT 8.2 K/UL (4.8-10.8)
[2017-03-04] MEDS: NovoLOG Insulin Flexpen SUBQ SCH ×4 (05:17→23:57)
[2017-03-04 05:47] LABS: ANION GAP 12 (5-15); CALCIUM 8.6 mg/dL (8.6-10.2); CARBON DIOXIDE 20 mEQ/L (20-30); CHLORIDE 105 mEQ/L (98-107); CREATININE 0.8 mg/dL (0.5-0.9); HEMOLYSIS 3; PHOSPHORUS 2.2 mg/dL (2.5-4.8); POTASSIUM 3.3 mEQ/L (3.4-4.9); SODIUM 137 mEQ/L (135-145)
[2017-03-04 07:58] VITALS: BP 112/68
[2017-03-04] MEDS ORDERED: Vancomycin 500 MG in D5W 110 ML IVPB SCH (08:00)
[2017-03-04] MEDS ORDERED: Vancomycin 500mg in D5W 110ml IVPB SCH (08:00)
--- NOTE | 2017-03-04 08:30 | Diagnostic Imaging Report ---
Indication:Elevated Bun and Creatinine. Technique: Grayscale and duplex Doppler imaging of the kidneys performed. Comparison: None Findings: The size, contour, and echogenicity of both kidneys are within normal limits. Right kidney is small measuring 8 cm. The left kidney is 9.2 cm in length. There is no hydronephrosis. The IVC is unremarkable. Bladder not seen presumably nondistended. Impression: Small right kidney. Negative exam otherwise
--- NOTE | 2017-03-04 08:45 | Infectious Diseases Prog Note ---
Assessment/Plan Assessment/Plan A; Sever sepsis Bacteremia Pneumonia Dementia Acute renal failure resolved Hypoxemic respiratory failure P: Continue Cefepime & Vancomycin will f/u cultures Subjective ROS Limited/Unobtainable: Yes Constitutional: Reports: other - doing better transferred from ICU to [facility] Allergies: Coded Allergies: LORAZEPAM (Unverified Allergy, Unknown, 03/02/17) METOCLOPRAMIDE (Unverified Allergy, Unknown, 03/02/17) QUETIAPINE (Unverified Allergy, Unknown, 03/02/17) ZOLPIDEM (Unverified Allergy, Unknown, 03/02/17) Objective Vital Signs Last 24 Hour Vital Signs Date Time Temp Pulse Resp B/P Pulse Ox O2 Delivery O2 Flow Rate FiO2 03/04/17 07:58 97.9 89 21 112/68 100 Venturi Mask 55 03/04/17 07:54 89 03/04/17 06:31 92 20 Venturi Mask 14.0 55 03/04/17 06:31 Venturi Mask 14.0 55 03/04/17 06:31 98 Venturi Mask 14.0 55 03/04/17 04:00 86 03/04/17 04:00 98.6 81 20 118/72 100 Venturi Mask 55 03/04/17 00:00 98.2 78 22 112/75 100 Venturi Mask 55 03/04/17 00:00 88 03/03/17 22:15 82 03/03/17 21:08 98.3 82 20 102/64 100 Venturi Mask 55 03/03/17 21:00 88 26 98/56 100 Venturi Mask 55 03/03/17 20:00 90 03/03/17 20:00 98.5 90 22 98/60 100 Venturi Mask 55 03/03/17 19:30 99 Venturi Mask 14.0 55 03/03/17 19:30 Venturi Mask 14.0 55 03/03/17 19:30 90 20 Venturi Mask 14.0 55 03/03/17 19:00 94 29 113/56 100 Venturi Mask 55 03/03/17 18:00 95 29 119/49 100 Venturi Mask 55 03/03/17 17:00 95 29 111/41 95 Venturi Mask 55 03/03/17 16:00 98.3 92 29 96/54 95 Venturi Mask 55 03/03/17 16:00 99 03/03/17 15:00 87 29 121/71 95 Venturi Mask 55 03/03/17 14:00 88 29 131/60 94 Venturi Mask 55 03/03/17 13:00 98 30 132/97 100 Venturi Mask 55 03/03/17 12:00 98 03/03/17 12:00 99.0 97 30 129/70 98 Venturi Mask 55 03/03/17 11:00 97 30 117/70 98 Venturi Mask 55 03/03/17 10:28 98 Venturi Mask 14.0 55 03/03/17 10:27 Venturi Mask 14.0 55 03/03/17 10:26 98 20 Venturi Mask 14.0 55 03/03/17 10:00 107 30 118/42 98 Venturi Mask 55 03/03/17 09:00 103 28 102/85 99 Non-Rebreather 100 Height (Feet): 5 Height (Inches): 11.00 Weight (Pounds): 124 General Appearance: no acute distress HEENT: mucous membranes moist, other Respiratory/Chest: other - few rhonchi, O2 by mask Cardiovascular: normal rate Abdomen: soft, non tender, other - GT feeding Extremities: no edema Neurologic/Psychiatric: disoriented, aphasia Musculoskeletal: atrophy Microbiology Date/Time Source Procedure Growth Status 03/02/17 21:45 Blood Blood Culture - Preliminary Resulted Laboratory Tests Test 03/04/17 03:15 White Blood Count 8.2 K/UL (4.8-10.8) # Red Blood Count 2.96 M/UL (4.20-5.40) L Hemoglobin 10.6 G/DL (12.0-16.0) L Hematocrit 29.7 % (37.0-47.0) L Mean Corpuscular Volume 101 FL (80-99) H Mean Corpuscular Hemoglobin 35.8 PG (27.0-31.0) H Mean Corpuscular Hemoglobin Concent 35.6 G/DL (32.0-36.0) Red Cell Distribution Width 11.6 % (11.6-14.8) Platelet Count 112 K/UL (150-450) L Mean Platelet Volume 13.6 FL (6.5-10.1) H Neutrophils (%) (Auto) 82.4 % (45.0-75.0) H Lymphocytes (%) (Auto) 7.6 % (20.0-45.0) L Monocytes (%) (Auto) 4.7 % (1.0-10.0) Eosinophils (%) (Auto) 4.4 % (0.0-3.0) H Basophils (%) (Auto) 0.9 % (0.0-2.0) Sodium Level 137 mEQ/L (135-145) Potassium Level 3.3 mEQ/L (3.4-4.9) L Chloride Level 105 mEQ/L (98-107) Carbon Dioxide Level 20 mEQ/L (20-30) Anion Gap 12 (5-15) Blood Urea Nitrogen 23 mg/dL (7-23) Creatinine 0.8 mg/dL (0.5-0.9) Estimat Glomerular Filtration Rate mL/min (>60) Glucose Level 151 mg/dL (74-106) #H Calcium Level 8.6 mg/dL (8.6-10.2) Phosphorus Level 2.2 mg/dL (2.5-4.8) L Albumin 2.5 g/dL (3.5-5.2) L Current Medications Medications (Trade) Dose Ordered Sig/Ramiro Route PRN Reason Start Time Stop Time Status Last Admin Dose Admin Acetaminophen (Tylenol) 650 mg Q4H PRN ORAL fever>100.1 03/03/17 22:00 04/02/17 21:59 Acetaminophen/ Hydrocodone Bitart ([place] 5/325) 2 tab Q6H PRN GT Moderate Pain (Pain Scale 4-6) 03/03/17 22:00 03/10/17 21:59 Albuterol/ Ipratropium (DuoNeb 0.5-3(2.5)mg/3ml) 3 ml Q4H PRN HHN Shortness of Breath 03/03/17 22:00 03/08/17 21:59 Cefepime HCl 2 gm/ Dextrose 110 ml @ 220 mls/hr Q24H IV 03/04/17 09:00 03/11/17 08:59 Dextrose (Dextrose 50%) STAT PRN IV Hypoglycemia 03/03/17 22:00 04/02/17 21:59 Famotidine (Pepcid I.v.) 20 mg Q12HR IVP 03/04/17 09:00 04/03/17 08:59 Heparin Sodium (Porcine) (Heparin 5000 units/ml) 5,000 units EVERY 12 HOURS SUBQ 03/04/17 09:00 04/03/17 08:59 Insulin Aspart (NovoLOG) EVERY 6 HOURS SUBQ 03/04/17 00:00 04/03/17 00:00 03/04/17 05:17 Morphine Sulfate (Morphine Sulfate) 4 mg Q4H PRN IVP Severe Pain (Pain Scale 7-10) 03/03/17 22:00 03/10/17 21:59 Ondansetron HCl (Zofran) 4 mg Q6H PRN IVP Nausea & Vomiting 03/03/17 22:00 04/02/17 21:59 Polyethylene Glycol (Miralax) 17 gm DAILYPRN PRN ORAL Constipation 03/03/17 22:00 04/02/17 21:59 Promethazine HCl/ Codeine (Phenergan with Codeine) 5 ml Q4H PRN ORAL For Cough 03/03/17 22:00 04/02/17 21:59 Sodium Chloride 1,000 ml @ 50 mls/hr Q20H IV 03/03/17 22:00 04/02/17 21:59 03/03/17 21:50 Vancomycin HCl/ Dextrose (Vancomycin/D5W) 110 ml @ 110 mls/hr Q24H IVPB 03/04/17 08:00 03/09/17 07:59 LEON HINES Mar 04, 2017 08:45
[2017-03-04] MEDS: Heparin 5000 units/ml inj SUBQ SCH ×2 (08:51→21:14)
[2017-03-04] MEDS ORDERED: Cefepime HCl 2 GM in D5W 110 ML IV SCH (09:00)
[2017-03-04] MEDS ORDERED: Famotidine 20 MG/ 2ML VIAL IVP SCH ×2 (09:00→21:00)
--- NOTE | 2017-03-04 10:32 | Pulmonology Progress Note ---
Assessment/Plan Problems: (1) Severe sepsis (2) Acute respiratory failure with hypoxia (3) Pneumonia (4) Hyperglycemia due to type 2 diabetes mellitus (5) UTI (urinary tract infection) (6) Feeding by G-tube (7) Anemia (8) Advanced dementia Assessment/Plan wbc lower, afebrile no cultures yet anemia w/u tolerating gtube feeding K supplement DVT prophylaxis. Subjective ROS Limited/Unobtainable: No HEENT: Repors: no symptoms Allergies: Coded Allergies: LORAZEPAM (Unverified Allergy, Unknown, 03/02/17) METOCLOPRAMIDE (Unverified Allergy, Unknown, 03/02/17) QUETIAPINE (Unverified Allergy, Unknown, 03/02/17) ZOLPIDEM (Unverified Allergy, Unknown, 03/02/17) Objective Last 24 Hour Vital Signs Date Time Temp Pulse Resp B/P Pulse Ox O2 Delivery O2 Flow Rate FiO2 03/04/17 07:58 97.9 89 21 112/68 100 Venturi Mask 55 03/04/17 07:54 89 03/04/17 06:31 92 20 Venturi Mask 14.0 55 03/04/17 06:31 Venturi Mask 14.0 55 03/04/17 06:31 98 Venturi Mask 14.0 55 03/04/17 04:00 86 03/04/17 04:00 98.6 81 20 118/72 100 Venturi Mask 55 03/04/17 00:00 98.2 78 22 112/75 100 Venturi Mask 55 03/04/17 00:00 88 03/03/17 22:15 82 03/03/17 21:08 98.3 82 20 102/64 100 Venturi Mask 55 03/03/17 21:00 88 26 98/56 100 Venturi Mask 55 03/03/17 20:00 90 03/03/17 20:00 98.5 90 22 98/60 100 Venturi Mask 55 03/03/17 19:30 99 Venturi Mask 14.0 55 03/03/17 19:30 Venturi Mask 14.0 55 03/03/17 19:30 90 20 Venturi Mask 14.0 55 03/03/17 19:00 94 29 113/56 100 Venturi Mask 55 03/03/17 18:00 95 29 119/49 100 Venturi Mask 55 03/03/17 17:00 95 29 111/41 95 Venturi Mask 55 03/03/17 16:00 98.3 92 29 96/54 95 Venturi Mask 55 03/03/17 16:00 99 03/03/17 15:00 87 29 121/71 95 Venturi Mask 55 03/03/17 14:00 88 29 131/60 94 Venturi Mask 55 03/03/17 13:00 98 30 132/97 100 Venturi Mask 55 03/03/17 12:00 98 03/03/17 12:00 99.0 97 30 129/70 98 Venturi Mask 55 03/03/17 11:00 97 30 117/70 98 Venturi Mask 55 Intake and Output 03/03/17 03/04/17 19:00 07:00 Intake Total 1007.6 ml 880 ml Output Total 870 ml 435 ml Balance 137.6 ml 445 ml Intake IV Total 847.6 ml 460 ml Tube Feeding 160 ml 420 ml Output Urine Total 870 ml 435 ml # Bowel Movements 3 General Appearance: WD/WN, no acute distress HEENT: normocephalic, atraumatic Respiratory/Chest: chest wall non-tender, lungs clear Cardiovascular: normal peripheral pulses, normal rate Abdomen: normal bowel sounds, soft, non tender Genitourinary: normal external genitalia 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 Lymphatic: no neck adenopathy, no groin adenopathy Microbiology Date/Time Source Procedure Growth Status 03/02/17 21:45 Blood Blood Culture - Preliminary Resulted Laboratory Tests 03/04/17 03:15: White Blood Count 8.2#, Red Blood Count 2.96L, Hemoglobin 10.6L, Hematocrit 29.7L, Mean Corpuscular Volume 101H, Mean Corpuscular Hemoglobin 35.8H, Mean Corpuscular Hemoglobin Concent 35.6, Red Cell Distribution Width 11.6, Platelet Count 112L, Mean Platelet Volume 13.6H, Neutrophils (%) (Auto) 82.4H, Lymphocytes (%) (Auto) 7.6L, Monocytes (%) (Auto) 4.7, Eosinophils (%) (Auto) 4.4H, Basophils (%) (Auto) 0.9, Sodium Level 137, Potassium Level 3.3L, Chloride Level 105, Carbon Dioxide Level 20, Anion Gap 12, Blood Urea Nitrogen 23, Creatinine 0.8, Estimat Glomerular Filtration Rate , Glucose Level 151#H, Calcium Level 8.6, Phosphorus Level 2.2L, Albumin 2.5L Current Medications Medications (Trade) Dose Ordered Sig/Ramiro Route PRN Reason Start Time Stop Time Status Last Admin Dose Admin Acetaminophen (Tylenol) 650 mg Q4H PRN ORAL fever>100.1 03/03/17 22:00 04/02/17 21:59 Acetaminophen/ Hydrocodone Bitart ([place] 5/325) 2 tab Q6H PRN GT Moderate Pain (Pain Scale 4-6) 03/03/17 22:00 03/10/17 21:59 Albuterol/ Ipratropium (DuoNeb 0.5-3(2.5)mg/3ml) 3 ml Q4H PRN HHN Shortness of Breath 03/03/17 22:00 03/08/17 21:59 Cefepime HCl 2 gm/ Dextrose 110 ml @ 220 mls/hr Q24H IV 03/04/17 09:00 03/11/17 08:59 03/04/17 08:49 Dextrose (Dextrose 50%) STAT PRN IV Hypoglycemia 03/03/17 22:00 04/02/17 21:59 Famotidine (Pepcid I.v.) 20 mg Q12HR IVP 03/04/17 09:00 04/03/17 08:59 03/04/17 08:49 Heparin Sodium (Porcine) (Heparin 5000 units/ml) 5,000 units EVERY 12 HOURS SUBQ 03/04/17 09:00 04/03/17 08:59 03/04/17 08:51 Insulin Aspart (NovoLOG) EVERY 6 HOURS SUBQ 03/04/17 00:00 04/03/17 00:00 03/04/17 05:17 Morphine Sulfate (Morphine Sulfate) 4 mg Q4H PRN IVP Severe Pain (Pain Scale 7-10) 03/03/17 22:00 03/10/17 21:59 Ondansetron HCl (Zofran) 4 mg Q6H PRN IVP Nausea & Vomiting 03/03/17 22:00 04/02/17 21:59 Polyethylene Glycol (Miralax) 17 gm DAILYPRN PRN ORAL Constipation 03/03/17 22:00 04/02/17 21:59 Potassium Chloride (KCl 10% 40mEq Oral solution) 40 meq ONCE ONCE NG 03/04/17 11:00 03/04/17 11:01 Promethazine HCl/ Codeine (Phenergan with Codeine) 5 ml Q4H PRN ORAL For Cough 03/03/17 22:00 04/02/17 21:59 Sodium Chloride 1,000 ml @ 50 mls/hr Q20H IV 03/03/17 22:00 04/02/17 21:59 03/04/17 08:49 Vancomycin HCl/ Dextrose (Vancomycin/D5W) 110 ml @ 110 mls/hr Q24H IVPB 03/04/17 08:00 03/09/17 07:59 03/04/17 08:48 ZAIRA ROSALES Mar 04, 2017 10:32
[2017-03-04] MEDS ORDERED: KCl 10% 40mEq/30ml liquid NG ONE (11:00)
[2017-03-04 12:08] VITALS: BP 103/71
[2017-03-04 12:23] LABS: OTHERS PATHOLOGIST COMMENT
[2017-03-04 16:00] VITALS: BP 140/69
[2017-03-04 19:57] VITALS: BP 138/68
[2017-03-04] MEDS ORDERED: Miralax 17gm pkt ORAL PRN (22:00)
[2017-03-04] MEDS ORDERED: Promethazine/Codeine 5ml UD ORAL PRN (22:00)
[2017-03-04] MEDS ORDERED: Morphine Sulfate 4mg/ml Inj IVP PRN (22:00)
[2017-03-05] VITALS: BP 110/37
[2017-03-05] MEDS ORDERED: Norco 5mg/325mg tab GT PRN (03:00)
[2017-03-05 03:40] VITALS: BP 102/64
[2017-03-05] MEDS: NovoLOG Insulin Flexpen SUBQ SCH ×3 (06:12→18:03)
[2017-03-05 06:37] LABS: MEAN CORPUSCULAR HEMOGLOBIN 35.6 PG (27.0-31.0); MEAN CORPUSCULAR HGB CONC 35.1 G/DL (32.0-36.0); MEAN CORPUSCULAR VOLUME 101 FL (80-99); MEAN PLATELET VOLUME 12.8 FL (6.5-10.1); PLATELET COUNT 125 K/UL (150-450); RED BLOOD COUNT 3.04 M/UL (4.20-5.40); RED CELL DISTRIBUTION WIDTH 11.9 % (11.6-14.8); WHITE BLOOD COUNT 11.1 K/UL (4.8-10.8)
[2017-03-05 06:45] LABS: INR 0.9 (0.9-1.1); PROTHROMBIN TIME 9.4 SEC (9.30-11.50)
[2017-03-05 06:57] LABS: ALANINE AMINOTRANSFERASE 12 U/L (3-33); ALBUMIN/GLOBULIN RATIO 0.7 (1.0-2.7); ANION GAP 11 (5-15); ASPARTATE AMINO TRANSFERASE 28 U/L (5-40); CALCIUM 9.5 mg/dL (8.6-10.2); CARBON DIOXIDE 23 mEQ/L (20-30); CHLORIDE 104 mEQ/L (98-107); CREATININE 0.8 mg/dL (0.5-0.9); HEMOLYSIS 2; POTASSIUM 4.7 mEQ/L (3.4-4.9); SODIUM 138 mEQ/L (135-145); TOTAL PROTEIN 6.4 g/dL (6.6-8.7)
[2017-03-05 07:23] LABS: PHOSPHORUS 0.9 mg/dL (2.5-4.8)
[2017-03-05 08:00] VITALS: BP 108/54
[2017-03-05] MEDS: Heparin 2000 units/Ns 1000ml INJ SCH (08:00)
[2017-03-05 08:14] LABS: BAND NEUTROPHILS % (MANUAL) 5 % (0-8); BASOPHILS % (MANUAL) 0 % (0-2); EOSINOPHILS % (MANUAL) 4 % (0-3); LYMPHOCYTES % (MANUAL) 7 % (20-45); NEUTROPHILS % (MANUAL) 80 % (45-75); PLATELET ESTIMATE DECREASED; PLATELET MORPHOLOGY NORMAL; TOTAL CELLS COUNTED 100
[2017-03-05] MEDS: Vancomycin 500 MG in D5W 110 ML IVPB SCH (08:15)
[2017-03-05 08:16] LABS: ANISOCYTOSIS 1+
[2017-03-05] MEDS: Heparin 5000 units/ml inj SUBQ SCH ×2 (08:22→20:59)
[2017-03-05 08:30] LABS: ERYTHROCYTE SEDIMENTATION RATE 111 MM/HR (0-42)
[2017-03-05] MEDS: Dyna-Hex 2% Top Sol 8oz TOPIC SCH (09:00)
[2017-03-05 09:10] LABS: HEMOLYSIS 19; IRON 13 ug/dL (37-145); TOTAL IRON BINDING CAPACITY 171 ug/dL (250-400)
[2017-03-05] MEDS: Cefepime HCl 2 GM in D5W 110 ML IV SCH (09:17)
[2017-03-05 09:22] LABS: PATH BLOOD SMEAR/OMC SENT TO PATHOLOGIST; RETICULOCYTE COUNT 1.4 % (0.0-2.0)
[2017-03-05 09:40] LABS: LACTATE DEHYDROGENASE 342 U/L (135-230)
[2017-03-05] MEDS: DuoNeb 0.5-3(2.5)mg/3ml neb HHN PRN ×2 (11:54→19:47)
[2017-03-05 12:00] VITALS: BP 129/95
--- NOTE | 2017-03-05 12:12 | Diagnostic Imaging Report ---
Indication: DYSPNEA Technique: One view of the chest Comparison: 03/03/2017 Findings: Again demonstrated are bilateral infiltrates versus edema,, appearing more diffuse on the right, and denser on the left. Right upper quadrant surgical clips are again demonstrated. The heart size is normal Impression: Worsening bilateral infiltrates versus edema, over 2 days
--- NOTE | 2017-03-05 12:28 | Infectious Diseases Prog Note ---
Assessment/Plan Assessment/Plan A; Sever sepsis CoANS in blood, likely contamination Pneumonia Dementia Acute renal failure resolved Hypoxemic respiratory failure MRSA colonization VRE colonization P: Continue Cefepime & Vancomycin X 4days will f/u cultures Subjective ROS Limited/Unobtainable: Yes Neurologic: Reports: confusion Allergies: Coded Allergies: LORAZEPAM (Unverified Allergy, Unknown, 03/02/17) METOCLOPRAMIDE (Unverified Allergy, Unknown, 03/02/17) QUETIAPINE (Unverified Allergy, Unknown, 03/02/17) ZOLPIDEM (Unverified Allergy, Unknown, 03/02/17) Objective Vital Signs Last 24 Hour Vital Signs Date Time Temp Pulse Resp B/P Pulse Ox O2 Delivery O2 Flow Rate FiO2 03/05/17 11:55 77 18 Nasal Cannula 2.0 03/05/17 11:55 100 Nasal Cannula 2.0 03/05/17 11:55 Nasal Cannula 2.0 03/05/17 11:55 77 19 100 Nasal Cannula 2.0 03/05/17 08:00 97.0 77 18 108/54 100 Nasal Cannula 2.0 03/05/17 05:22 98.4 03/05/17 03:40 99.9 86 18 102/64 88 Room Air 86 03/05/17 00:00 97.9 90 18 110/37 94 Nasal Cannula 2.0 03/04/17 20:00 105 03/04/17 19:57 99.5 102 21 138/68 94 Nasal Cannula 2.0 03/04/17 16:00 90 03/04/17 16:00 98.1 95 21 140/69 96 Nasal Cannula 2.0 Height (Feet): 5 Height (Inches): 11.00 Weight (Pounds): 120 HEENT: mucous membranes moist Respiratory/Chest: rhonchi - bilaterally, other - O2 by cannula Cardiovascular: normal rate Abdomen: soft, non tender, other - GT feeding Extremities: no edema Neurologic/Psychiatric: disoriented, aphasia, other - moves only left arm Microbiology Date/Time Source Procedure Growth Status 03/02/17 21:45 Blood Blood Culture - Preliminary Staphylococcus Sp Coag Neg Resulted 03/02/17 23:30 Nasal Nares MRSA Culture - Final Staphylococcus Aureus - Mrsa Complete 03/02/17 23:30 Rectum VRE Culture - Final Enterococcus Faecium - Vre Complete Laboratory Tests Test 03/05/17 05:15 White Blood Count 11.1 K/UL (4.8-10.8) H Red Blood Count 3.04 M/UL (4.20-5.40) L Hemoglobin 10.8 G/DL (12.0-16.0) L Hematocrit 30.8 % (37.0-47.0) L Mean Corpuscular Volume 101 FL (80-99) H Mean Corpuscular Hemoglobin 35.6 PG (27.0-31.0) H Mean Corpuscular Hemoglobin Concent 35.1 G/DL (32.0-36.0) Red Cell Distribution Width 11.9 % (11.6-14.8) Platelet Count 125 K/UL (150-450) L Mean Platelet Volume 12.8 FL (6.5-10.1) H Neutrophils (%) (Auto) % (45.0-75.0) Lymphocytes (%) (Auto) % (20.0-45.0) Monocytes (%) (Auto) % (1.0-10.0) Eosinophils (%) (Auto) % (0.0-3.0) Basophils (%) (Auto) % (0.0-2.0) Differential Total Cells Counted 100 Neutrophils % (Manual) 80 % (45-75) H Lymphocytes % (Manual) 7 % (20-45) L Monocytes % (Manual) 4 % (1-10) Eosinophils % (Manual) 4 % (0-3) H Basophils % (Manual) 0 % (0-2) Band Neutrophils 5 % (0-8) Platelet Estimate Decreased L Platelet Morphology Normal Anisocytosis 1+ Erythrocyte Sedimentation Rate 111 MM/HR (0-42) H Reticulocyte Count 1.4 % (0.0-2.0) Prothrombin Time 9.4 SEC (9.30-11.50) Prothromb Time International Ratio 0.9 (0.9-1.1) Activated Partial Thromboplast Time 33 SEC (23-33) Sodium Level 138 mEQ/L (135-145) Potassium Level 4.7 mEQ/L (3.4-4.9) Chloride Level 104 mEQ/L (98-107) Carbon Dioxide Level 23 mEQ/L (20-30) Anion Gap 11 (5-15) Blood Urea Nitrogen 21 mg/dL (7-23) Creatinine 0.8 mg/dL (0.5-0.9) Estimat Glomerular Filtration Rate mL/min (>60) Glucose Level 202 mg/dL (74-106) H Calcium Level 9.5 mg/dL (8.6-10.2) Phosphorus Level 0.9 mg/dL (2.5-4.8) *L Magnesium Level 2.0 mg/dL (1.7-2.5) Iron Level 13 ug/dL (37-145) L Total Iron Binding Capacity 171 ug/dL (250-400) L Percent Iron Saturation 8 % (15-50) L Unsaturated Iron Binding 158 ug/dL (112-346) Total Bilirubin 0.5 mg/dL (0.0-1.2) Aspartate Amino Transf (AST/SGOT) 28 U/L (5-40) Alanine Aminotransferase (ALT/SGPT) 12 U/L (3-33) Alkaline Phosphatase 192 U/L (35-104) H Lactate Dehydrogenase 342 U/L (135-230) H Pro-B-Type Natriuretic Peptide 9721 pg/mL (0-450) H Total Protein 6.4 g/dL (6.6-8.7) L Albumin 2.8 g/dL (3.5-5.2) L Globulin 3.6 g/dL Albumin/Globulin Ratio 0.7 (1.0-2.7) L Carcinoembryonic Antigen 4.7 ng/mL H Vitamin B12 Level 1824 pg/mL (211-946) H Folate Pending Current Medications Medications (Trade) Dose Ordered Sig/Ramiro Route PRN Reason Start Time Stop Time Status Last Admin Dose Admin Acetaminophen (Tylenol) 650 mg Q4H PRN ORAL fever>100.1 03/04/17 22:00 04/03/17 21:59 03/05/17 04:23 Acetaminophen/ Hydrocodone Bitart ([place] 5/325) 2 tab Q6H PRN GT Moderate Pain (Pain Scale 4-6) 03/05/17 03:00 03/12/17 02:59 Albuterol/ Ipratropium (DuoNeb 0.5-3(2.5)mg/3ml) 3 ml Q4H PRN HHN Shortness of Breath 03/04/17 22:00 03/09/17 21:59 03/05/17 11:54 Cefepime HCl 2 gm/ Dextrose 110 ml @ 220 mls/hr Q24H IV 03/05/17 09:00 03/12/17 08:59 03/05/17 09:17 Chlorhexidine Gluconate (Halie-Hex 2%) 1 applic DAILY TOPIC 03/05/17 09:00 04/04/17 08:59 Dextrose (Dextrose 50%) STAT PRN IV Hypoglycemia 03/04/17 22:00 04/03/17 21:59 Famotidine (Pepcid I.v.) 20 mg QHS IVP 03/05/17 21:00 04/04/17 20:59 Heparin Sodium (Porcine) (Heparin 5000 units/ml) 5,000 units EVERY 12 HOURS SUBQ 03/05/17 09:00 04/04/17 08:59 Heparin Sodium/ Sodium Chloride (Heparin 2000 units/Ns 1000ml premix) 2,000 unit ONCE INJ 03/05/17 08:00 03/06/17 23:59 Insulin Aspart (NovoLOG) EVERY 6 HOURS SUBQ 03/05/17 00:00 04/04/17 00:00 03/05/17 12:00 Lidocaine HCl (Xylocaine 1% 30ml) 30 ml ONCE INJ 03/05/17 08:00 03/06/17 23:59 Morphine Sulfate (Morphine Sulfate) 4 mg Q4H PRN IVP Severe Pain (Pain Scale 7-10) 03/04/17 22:00 03/11/17 21:59 Ondansetron HCl (Zofran) 4 mg Q6H PRN IVP Nausea & Vomiting 03/04/17 22:00 04/03/17 21:59 Polyethylene Glycol (Miralax) 17 gm DAILYPRN PRN ORAL Constipation 03/04/17 22:00 04/03/17 21:59 Promethazine HCl/ Codeine (Phenergan with Codeine) 5 ml Q4H PRN ORAL For Cough 03/04/17 22:00 04/03/17 21:59 Sodium Chloride 1,000 ml @ 50 mls/hr Q20H IV 03/04/17 23:00 04/03/17 22:59 03/04/17 22:35 Vancomycin HCl/ Dextrose (Vancomycin/D5W) 110 ml @ 110 mls/hr Q24H IVPB 03/05/17 08:00 8/20/17 07:59 03/05/17 08:15 LEON HINES Mar 05, 2017 12:28
[2017-03-05 16:03] VITALS: BP 130/67
--- NOTE | 2017-03-05 16:18 | Pulmonology Progress Note ---
Assessment/Plan Problems: (1) Severe sepsis (2) Acute respiratory failure with hypoxia (3) Pneumonia (4) Hyperglycemia due to type 2 diabetes mellitus (5) UTI (urinary tract infection) (6) Feeding by G-tube (7) Anemia (8) Advanced dementia Assessment/Plan wbc fluctuating afebrile no cultures yet anemia w/u tolerating gtube feeding K supplement DVT prophylaxis. BC most likely contaminated check cultrues f/u wbc tolerating diet Subjective ROS Limited/Unobtainable: No Allergies: Coded Allergies: LORAZEPAM (Unverified Allergy, Unknown, 03/02/17) METOCLOPRAMIDE (Unverified Allergy, Unknown, 03/02/17) QUETIAPINE (Unverified Allergy, Unknown, 03/02/17) ZOLPIDEM (Unverified Allergy, Unknown, 03/02/17) Objective Last 24 Hour Vital Signs Date Time Temp Pulse Resp B/P Pulse Ox O2 Delivery O2 Flow Rate FiO2 03/05/17 16:03 97.3 109 21 130/67 96 Nasal Cannula 2.0 109 03/05/17 12:00 98.1 100 20 129/95 100 Nasal Cannula 2.0 03/05/17 11:55 77 18 Nasal Cannula 2.0 03/05/17 11:55 100 Nasal Cannula 2.0 03/05/17 11:55 Nasal Cannula 2.0 03/05/17 11:55 77 19 100 Nasal Cannula 2.0 03/05/17 08:00 97.0 77 18 108/54 100 Nasal Cannula 2.0 03/05/17 05:22 98.4 03/05/17 03:40 99.9 86 18 102/64 88 Room Air 86 03/05/17 00:00 97.9 90 18 110/37 94 Nasal Cannula 2.0 03/04/17 20:00 105 03/04/17 19:57 99.5 102 21 138/68 94 Nasal Cannula 2.0 Intake and Output 03/04/17 03/05/17 19:00 07:00 Intake Total 1460 ml 980 ml Output Total 650 ml Balance 810 ml 980 ml Intake Free Water 150 ml 150 ml IV Total 830 ml 320 ml Tube Feeding 480 ml 510 ml Output Urine Total 650 ml General Appearance: WD/WN HEENT: normocephalic, atraumatic, anicteric Respiratory/Chest: chest wall non-tender, lungs clear Cardiovascular: normal peripheral pulses, normal rate Abdomen: normal bowel sounds, soft, non tender Genitourinary: normal external genitalia Extremities: no clubbing 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 Microbiology Date/Time Source Procedure Growth Status 03/02/17 21:45 Blood Blood Culture - Preliminary Staphylococcus Sp Coag Neg Resulted 03/02/17 23:30 Nasal Nares MRSA Culture - Final Staphylococcus Aureus - Mrsa Complete 03/02/17 23:30 Rectum VRE Culture - Final Enterococcus Faecium - Vre Complete Laboratory Tests 03/05/17 05:15: White Blood Count 11.1H, Red Blood Count 3.04L, Hemoglobin 10.8L, Hematocrit 30.8L, Mean Corpuscular Volume 101H, Mean Corpuscular Hemoglobin 35.6H, Mean Corpuscular Hemoglobin Concent 35.1, Red Cell Distribution Width 11.9, Platelet Count 125L, Mean Platelet Volume 12.8H, Neutrophils (%) (Auto) , Lymphocytes (% ) (Auto) , Monocytes (%) (Auto) , Eosinophils (%) (Auto) , Basophils (%) (Auto) , Differential Total Cells Counted 100, Neutrophils % (Manual) 80H, Lymphocytes % (Manual) 7L, Monocytes % (Manual) 4, Eosinophils % (Manual) 4H, Basophils % ( Manual) 0, Band Neutrophils 5, Platelet Estimate DecreasedL, Platelet Morphology Normal, Anisocytosis 1+, Erythrocyte Sedimentation Rate 111H, Reticulocyte Count 1.4, Prothrombin Time 9.4, Prothromb Time International Ratio 0.9, Activated Partial Thromboplast Time 33, Sodium Level 138, Potassium Level 4.7, Chloride Level 104, Carbon Dioxide Level 23, Anion Gap 11, Blood Urea Nitrogen 21, Creatinine 0.8, Estimat Glomerular Filtration Rate , Glucose Level 202H, Calcium Level 9.5, Phosphorus Level 0.9*L, Magnesium Level 2.0, Iron Level 13L, Total Iron Binding Capacity 171L, Percent Iron Saturation 8L, Unsaturated Iron Binding 158, Total Bilirubin 0.5, Aspartate Amino Transf (AST/ SGOT) 28, Alanine Aminotransferase (ALT/SGPT) 12, Alkaline Phosphatase 192H, Lactate Dehydrogenase 342H, Pro-B-Type Natriuretic Peptide 9721H, Total Protein 6.4L, Albumin 2.8L, Globulin 3.6, Albumin/Globulin Ratio 0.7L, Carcinoembryonic Antigen 4.7H, Vitamin B12 Level 1824H, Folate [Pending] Current Medications Medications (Trade) Dose Ordered Sig/Ramiro Route PRN Reason Start Time Stop Time Status Last Admin Dose Admin Acetaminophen (Tylenol) 650 mg Q4H PRN ORAL fever>100.1 03/04/17 22:00 04/03/17 21:59 03/05/17 04:23 Acetaminophen/ Hydrocodone Bitart ([place] 5/325) 2 tab Q6H PRN GT Moderate Pain (Pain Scale 4-6) 03/05/17 03:00 03/12/17 02:59 Albuterol/ Ipratropium (DuoNeb 0.5-3(2.5)mg/3ml) 3 ml Q4H PRN HHN Shortness of Breath 03/04/17 22:00 03/09/17 21:59 03/05/17 11:54 Cefepime HCl 2 gm/ Dextrose 110 ml @ 220 mls/hr Q24H IV 03/05/17 09:00 03/12/17 08:59 03/05/17 09:17 Chlorhexidine Gluconate (Halie-Hex 2%) 1 applic DAILY TOPIC 03/05/17 09:00 04/04/17 08:59 Dextrose (Dextrose 50%) STAT PRN IV Hypoglycemia 03/04/17 22:00 04/03/17 21:59 Famotidine (Pepcid I.v.) 20 mg QHS IVP 03/05/17 21:00 04/04/17 20:59 Heparin Sodium (Porcine) (Heparin 5000 units/ml) 5,000 units EVERY 12 HOURS SUBQ 03/05/17 09:00 04/04/17 08:59 Heparin Sodium/ Sodium Chloride 2000 unit 2,000 unit ONCE INJ 03/05/17 08:00 03/06/17 23:59 Insulin Aspart (NovoLOG) EVERY 6 HOURS SUBQ 03/05/17 00:00 04/04/17 00:00 03/05/17 12:00 Lidocaine HCl (Xylocaine 1% 30ml) 30 ml ONCE INJ 03/05/17 08:00 03/06/17 23:59 Morphine Sulfate (Morphine Sulfate) 4 mg Q4H PRN IVP Severe Pain (Pain Scale 7-10) 03/04/17 22:00 8/21/17 21:59 Ondansetron HCl (Zofran) 4 mg Q6H PRN IVP Nausea & Vomiting 03/04/17 22:00 04/03/17 21:59 Polyethylene Glycol (Miralax) 17 gm DAILYPRN PRN ORAL Constipation 03/04/17 22:00 04/03/17 21:59 Promethazine HCl/ Codeine (Phenergan with Codeine) 5 ml Q4H PRN ORAL For Cough 03/04/17 22:00 04/03/17 21:59 Sodium Chloride 1,000 ml @ 50 mls/hr Q20H IV 03/04/17 23:00 04/03/17 22:59 03/04/17 22:35 Sodium Phosphate/ Sodium Chloride (NaPO4/Sodium Chloride) 285 ml @ 47.5 mls/hr ONCE ONCE IV 03/05/17 17:15 03/05/17 23:14 UNV Vancomycin HCl/ Dextrose (Vancomycin/D5W) 110 ml @ 110 mls/hr Q24H IVPB 03/05/17 08:00 03/10/17 07:59 03/05/17 08:15 ZAIRA ROSALES Mar 05, 2017 16:18
[2017-03-05] MEDS ORDERED: Sodium Phosphate 30 MM in Sodium Chloride 550 ML IV ONE (18:00)
[2017-03-05 21:00] VITALS: BP 135/80
[2017-03-05] MEDS: Famotidine 20 MG/ 2ML VIAL IVP SCH (21:18)
[2017-03-06 00:22] VITALS: BP 136/64
[2017-03-06] MEDS: NovoLOG Insulin Flexpen SUBQ SCH ×5 (01:09→23:53)
[2017-03-06 04:25] VITALS: BP 109/43
[2017-03-06 07:42] LABS: ALANINE AMINOTRANSFERASE 11 U/L (3-33); ANION GAP 12 (5-15); ASPARTATE AMINO TRANSFERASE 26 U/L (5-40); CARBON DIOXIDE 24 mEQ/L (20-30); CHLORIDE 105 mEQ/L (98-107); CREATININE 0.6 mg/dL (0.5-0.9); HEMOLYSIS 42; MAGNESIUM 1.7 mg/dL (1.7-2.5); PHOSPHORUS 2.5 mg/dL (2.5-4.8); POTASSIUM 3.9 mEQ/L (3.4-4.9); SODIUM 141 mEQ/L (135-145); TOTAL PROTEIN 5.2 g/dL (6.6-8.7)
[2017-03-06 07:43] LABS: BASOPHILS % (AUTO) 1.7 % (0.0-2.0); EOSINOPHILS % (AUTO) 2.3 % (0.0-3.0); LYMPHOCYTES % (AUTO) 6.8 % (20.0-45.0); MEAN CORPUSCULAR HEMOGLOBIN 35.7 PG (27.0-31.0); MEAN CORPUSCULAR HGB CONC 36.3 G/DL (32.0-36.0); MEAN CORPUSCULAR VOLUME 98 FL (80-99); MEAN PLATELET VOLUME 11.3 FL (6.5-10.1); NEUTROPHILS % (AUTO) 78.2 % (45.0-75.0); PLATELET COUNT 122 K/UL (150-450); RED BLOOD COUNT 2.86 M/UL (4.20-5.40); RED CELL DISTRIBUTION WIDTH 11.8 % (11.6-14.8)
[2017-03-06 08:06] LABS: OTHERS PATHOLOGIST COMMENT
[2017-03-06] MEDS: Dyna-Hex 2% Top Sol 8oz TOPIC SCH (08:07)
[2017-03-06] MEDS: Heparin 5000 units/ml inj SUBQ SCH ×2 (08:07→21:00)
[2017-03-06] MEDS: Vancomycin 500 MG in D5W 110 ML IVPB SCH (08:11)
[2017-03-06 08:41] VITALS: BP 159/66
[2017-03-06] MEDS: Cefepime HCl 2 GM in D5W 110 ML IV SCH (09:40)
[2017-03-06] MEDS: Heparin 2000 units/Ns 1000ml INJ SCH (12:07)
[2017-03-06] MEDS: Lidocaine 1% Plain 30 ml INJ SCH (12:07)
[2017-03-06 12:22] VITALS: BP 136/88
--- NOTE | 2017-03-06 12:28 | Diagnostic Imaging Report ---
Indications: Needs long-term IV access Technique: Ultrasound confirms patent compressible left basilic vein. Total sterile technique, including sterile probe cover and sterile gel, hat, mask,, sterile gown, large sterile drape, and preparation with 2% chlorhexidine utilized. Local anesthesia with 1% lidocaine. Under real-time ultrasound guidance, puncture basilic vein using 21-gauge needle, documented and archived, passage 0.018 guidewire under direct fluoroscopy, which was used to determine appropriate catheter length, exchange for 5 [place] peel-away sheath. 5 [place] Bard dual-lumen power PICC cut to 38 cm. It was inserted through the peel-away sheath. Peel-away sheath and guidewire removed. Catheter fixed to the skin. Both catheter ports aspirated and flushed. Patient tolerated procedure well, without immediate complication. Digital radiograph documents satisfactory catheter tip position, at the cavoatrial junction. Total fluoroscopy time 0.6 minutes. Total dose area product 5.3 dGycm2 Impression: Successful placement of left arm PICC under sonographic and fluoroscopic guidance, as described above.
--- NOTE | 2017-03-06 14:08 | Infectious Diseases Prog Note ---
Assessment/Plan Assessment/Plan A; Severe sepsis CoNS in blood, likely contamination Pneumonia Dementia Acute renal failure resolved Hypoxemic respiratory failure MRSA colonization VRE colonization intermittent leukocytosis P: Continue Cefepime & Vancomycin D#4 of 7 monitor CBC Subjective ROS Limited/Unobtainable: Yes Allergies: Coded Allergies: LORAZEPAM (Unverified Allergy, Unknown, 03/02/17) METOCLOPRAMIDE (Unverified Allergy, Unknown, 03/02/17) QUETIAPINE (Unverified Allergy, Unknown, 03/02/17) ZOLPIDEM (Unverified Allergy, Unknown, 03/02/17) Objective Vital Signs Last 24 Hour Vital Signs Date Time Temp Pulse Resp B/P Pulse Ox O2 Delivery O2 Flow Rate FiO2 03/06/17 12:22 98.4 94 21 136/88 96 Nasal Cannula 2.0 03/06/17 08:41 97.9 93 21 159/66 96 Nasal Cannula 2.0 03/06/17 07:54 Nasal Cannula 2.0 28 03/06/17 07:54 96 Nasal Cannula 2.0 28 03/06/17 07:54 86 18 Nasal Cannula 2.0 28 03/06/17 04:25 98.6 64 19 109/43 98 Nasal Cannula 03/06/17 02:17 98.6 03/06/17 01:33 101 98 Nasal Cannula 03/06/17 01:12 99.0 03/06/17 00:22 99.9 113 19 136/64 97 Nasal Cannula 03/05/17 21:45 108 03/05/17 21:00 99.5 116 19 135/80 98 Nasal Cannula 116 03/05/17 20:05 119 20 98 Nasal Cannula 2.0 28 03/05/17 20:04 96 Nasal Cannula 2.0 03/05/17 20:04 Nasal Cannula 2.0 03/05/17 20:04 112 19 99 Nasal Cannula 2.0 03/05/17 20:04 112 18 Nasal Cannula 2.0 03/05/17 16:03 97.3 109 21 130/67 96 Nasal Cannula 2.0 109 Height (Feet): 5 Height (Inches): 11.00 Weight (Pounds): 124 Objective HEENT: mucous membranes moist Respiratory/Chest: rhonchi - bilaterally, other - O2 by cannula Cardiovascular: normal rate Abdomen: soft, non tender, other - GT feeding Extremities: no edema, s/p picc Neurologic/Psychiatric: disoriented, aphasia, other - moves only left arm Laboratory Tests Test 03/06/17 06:45 White Blood Count 10.0 K/UL (4.8-10.8) Red Blood Count 2.86 M/UL (4.20-5.40) L Hemoglobin 10.2 G/DL (12.0-16.0) L Hematocrit 28.1 % (37.0-47.0) L Mean Corpuscular Volume 98 FL (80-99) Mean Corpuscular Hemoglobin 35.7 PG (27.0-31.0) H Mean Corpuscular Hemoglobin Concent 36.3 G/DL (32.0-36.0) H Red Cell Distribution Width 11.8 % (11.6-14.8) Platelet Count 122 K/UL (150-450) L Mean Platelet Volume 11.3 FL (6.5-10.1) H Neutrophils (%) (Auto) 78.2 % (45.0-75.0) H Lymphocytes (%) (Auto) 6.8 % (20.0-45.0) L Monocytes (%) (Auto) 11.0 % (1.0-10.0) H Eosinophils (%) (Auto) 2.3 % (0.0-3.0) Basophils (%) (Auto) 1.7 % (0.0-2.0) Sodium Level 141 mEQ/L (135-145) Potassium Level 3.9 mEQ/L (3.4-4.9) Chloride Level 105 mEQ/L (98-107) Carbon Dioxide Level 24 mEQ/L (20-30) Anion Gap 12 (5-15) Blood Urea Nitrogen 17 mg/dL (7-23) Creatinine 0.6 mg/dL (0.5-0.9) Estimat Glomerular Filtration Rate mL/min (>60) Glucose Level 215 mg/dL (74-106) H Calcium Level 10.0 mg/dL (8.6-10.2) Phosphorus Level 2.5 mg/dL (2.5-4.8) Magnesium Level 1.7 mg/dL (1.7-2.5) Total Bilirubin 0.4 mg/dL (0.0-1.2) Aspartate Amino Transf (AST/SGOT) 26 U/L (5-40) Alanine Aminotransferase (ALT/SGPT) 11 U/L (3-33) Alkaline Phosphatase 101 U/L (35-104) Total Protein 5.2 g/dL (6.6-8.7) L Albumin 2.7 g/dL (3.5-5.2) L Globulin 2.5 g/dL Albumin/Globulin Ratio 1.0 (1.0-2.7) Vancomycin Level Trough 8.5 ug/mL (5.0-12.0) Current Medications Medications (Trade) Dose Ordered Sig/Ramiro Route PRN Reason Start Time Stop Time Status Last Admin Dose Admin Acetaminophen (Tylenol) 650 mg Q4H PRN ORAL fever>100.1 03/04/17 22:00 04/03/17 21:59 03/06/17 00:13 Acetaminophen/ Hydrocodone Bitart ([place] 5/325) 2 tab Q6H PRN GT Moderate Pain (Pain Scale 4-6) 03/05/17 03:00 03/12/17 02:59 Albuterol/ Ipratropium (DuoNeb 0.5-3(2.5)mg/3ml) 3 ml Q4H PRN HHN Shortness of Breath 03/04/17 22:00 03/09/17 21:59 03/05/17 19:47 Cefepime HCl/ Dextrose (Maxipime/D5W) 110 ml @ 220 mls/hr Q24H IV 03/05/17 09:00 03/12/17 08:59 03/06/17 09:40 Chlorhexidine Gluconate (Halie-Hex 2%) 1 applic DAILY TOPIC 03/05/17 09:00 04/04/17 08:59 Dextrose (Dextrose 50%) STAT PRN IV Hypoglycemia 03/04/17 22:00 04/03/17 21:59 Famotidine (Pepcid I.v.) 20 mg QHS IVP 03/05/17 21:00 04/04/17 20:59 03/05/17 21:18 Heparin Sodium (Porcine) (Heparin 5000 units/ml) 5,000 units EVERY 12 HOURS SUBQ 03/05/17 09:00 04/04/17 08:59 Heparin Sodium/ Sodium Chloride 2000 unit 2,000 unit ONCE INJ 03/05/17 08:00 03/06/17 23:59 Insulin Aspart (NovoLOG) EVERY 6 HOURS SUBQ 03/05/17 00:00 04/04/17 00:00 03/06/17 12:20 Lidocaine HCl (Xylocaine 1% 30ml) 30 ml ONCE INJ 03/05/17 08:00 03/06/17 23:59 Morphine Sulfate (Morphine Sulfate) 4 mg Q4H PRN IVP Severe Pain (Pain Scale 7-10) 03/04/17 22:00 03/11/17 21:59 Ondansetron HCl (Zofran) 4 mg Q6H PRN IVP Nausea & Vomiting 03/04/17 22:00 04/03/17 21:59 Polyethylene Glycol (Miralax) 17 gm DAILYPRN PRN ORAL Constipation 03/04/17 22:00 04/03/17 21:59 Promethazine HCl/ Codeine (Phenergan with Codeine) 5 ml Q4H PRN ORAL For Cough 03/04/17 22:00 04/03/17 21:59 Sodium Chloride 1,000 ml @ 50 mls/hr Q20H IV 03/04/17 23:00 04/03/17 22:59 03/06/17 06:02 Vancomycin HCl/ Dextrose (Vancomycin/D5W) 275 ml @ 180 mls/hr Q24H IVPB 03/06/17 17:00 03/11/17 16:59 Paul Amaya M.D. Mar 06, 2017 14:08
[2017-03-06 16:09] VITALS: BP 159/91
[2017-03-06] MEDS: DuoNeb 0.5-3(2.5)mg/3ml neb HHN PRN (16:24)
[2017-03-06] MEDS: Vancomycin 750 MG in D5W 275 ML IVPB SCH (17:02)
--- NOTE | 2017-03-06 17:06 | Pulmonology Progress Note ---
Assessment/Plan Problems: (1) Severe sepsis (2) Acute respiratory failure with hypoxia (3) Pneumonia (4) Hyperglycemia due to type 2 diabetes mellitus (5) UTI (urinary tract infection) (6) Feeding by G-tube (7) Anemia (8) Advanced dementia Assessment/Plan wbc fluctuating afebrile no cultures yet anemia w/u tolerating gtube feeding K supplement DVT prophylaxis. BC most likely contaminated check cultrues f/u wbc tolerating diet dc iv fluid, CXR reviewed, basically no change check echo to see if there is some component of pulmonary edema, chf on the cxr Subjective ROS Limited/Unobtainable: No Constitutional: Reports: no symptoms HEENT: Repors: no symptoms Respiratory: Reports: no symptoms Cardiovascular: Reports: no symptoms Allergies: Coded Allergies: LORAZEPAM (Unverified Allergy, Unknown, 03/02/17) METOCLOPRAMIDE (Unverified Allergy, Unknown, 03/02/17) QUETIAPINE (Unverified Allergy, Unknown, 03/02/17) ZOLPIDEM (Unverified Allergy, Unknown, 03/02/17) Objective Last 24 Hour Vital Signs Date Time Temp Pulse Resp B/P Pulse Ox O2 Delivery O2 Flow Rate FiO2 03/06/17 16:20 91 20 96 Nasal Cannula 2.0 28 03/06/17 16:09 98.2 92 21 159/91 94 Nasal Cannula 2.0 03/06/17 12:22 98.4 94 21 136/88 96 Nasal Cannula 2.0 03/06/17 08:41 97.9 93 21 159/66 96 Nasal Cannula 2.0 03/06/17 07:54 Nasal Cannula 2.0 28 03/06/17 07:54 96 Nasal Cannula 2.0 28 03/06/17 07:54 86 18 Nasal Cannula 2.0 28 03/06/17 04:25 98.6 64 19 109/43 98 Nasal Cannula 03/06/17 02:17 98.6 03/06/17 01:33 101 98 Nasal Cannula 03/06/17 01:12 99.0 03/06/17 00:22 99.9 113 19 136/64 97 Nasal Cannula 03/05/17 21:45 108 03/05/17 21:00 99.5 116 19 135/80 98 Nasal Cannula 116 03/05/17 20:05 119 20 98 Nasal Cannula 2.0 28 03/05/17 20:04 96 Nasal Cannula 2.0 03/05/17 20:04 Nasal Cannula 2.0 03/05/17 20:04 112 19 99 Nasal Cannula 2.0 03/05/17 20:04 112 18 Nasal Cannula 2.0 Intake and Output 03/05/17 03/06/17 19:00 07:00 Intake Total 1533.333 ml 1493.332 ml Output Total 1850 ml 650 ml Balance -316.667 ml 843.332 ml Intake Free Water 50 ml 50 ml IV Total 823.333 ml 723.332 ml Tube Feeding 660 ml 720 ml Output Urine Total 1850 ml 650 ml General Appearance: WD/WN HEENT: normocephalic, anicteric Respiratory/Chest: chest wall non-tender, lungs clear Breasts: no masses Cardiovascular: normal rate Abdomen: soft, non tender, non distended Extremities: no cyanosis 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, no motor/sensory deficits, responsive Laboratory Tests 03/06/17 06:45: White Blood Count 10.0, Red Blood Count 2.86L, Hemoglobin 10.2L, Hematocrit 28.1L, Mean Corpuscular Volume 98, Mean Corpuscular Hemoglobin 35.7H, Mean Corpuscular Hemoglobin Concent 36.3H, Red Cell Distribution Width 11.8, Platelet Count 122L, Mean Platelet Volume 11.3H, Neutrophils (%) (Auto) 78.2H, Lymphocytes (%) (Auto) 6.8L, Monocytes (%) (Auto) 11.0H, Eosinophils (%) (Auto) 2.3, Basophils (%) (Auto) 1.7, Sodium Level 141, Potassium Level 3.9, Chloride Level 105, Carbon Dioxide Level 24, Anion Gap 12, Blood Urea Nitrogen 17, Creatinine 0.6, Estimat Glomerular Filtration Rate , Glucose Level 215H, Calcium Level 10.0, Phosphorus Level 2.5, Magnesium Level 1.7, Total Bilirubin 0.4, Aspartate Amino Transf (AST/SGOT) 26, Alanine Aminotransferase (ALT/SGPT) 11, Alkaline Phosphatase 101, Total Protein 5.2L, Albumin 2.7L, Globulin 2.5, Albumin/Globulin Ratio 1.0, Vancomycin Level Trough 8.5 Current Medications Medications (Trade) Dose Ordered Sig/Ramiro Route PRN Reason Start Time Stop Time Status Last Admin Dose Admin Acetaminophen (Tylenol) 650 mg Q4H PRN ORAL fever>100.1 03/04/17 22:00 04/03/17 21:59 03/06/17 00:13 Acetaminophen/ Hydrocodone Bitart ([place] 5/325) 2 tab Q6H PRN GT Moderate Pain (Pain Scale 4-6) 03/05/17 03:00 03/12/17 02:59 Albuterol/ Ipratropium (DuoNeb 0.5-3(2.5)mg/3ml) 3 ml Q4H PRN HHN Shortness of Breath 03/04/17 22:00 03/09/17 21:59 03/06/17 16:24 Cefepime HCl/ Dextrose (Maxipime/D5W) 110 ml @ 220 mls/hr Q24H IV 03/05/17 09:00 03/12/17 08:59 03/06/17 09:40 Chlorhexidine Gluconate (Halie-Hex 2%) 1 applic DAILY TOPIC 03/05/17 09:00 04/04/17 08:59 Dextrose (Dextrose 50%) STAT PRN IV Hypoglycemia 03/04/17 22:00 04/03/17 21:59 Famotidine (Pepcid I.v.) 20 mg QHS IVP 03/05/17 21:00 04/04/17 20:59 03/05/17 21:18 Heparin Sodium (Porcine) (Heparin 5000 units/ml) 5,000 units EVERY 12 HOURS SUBQ 03/05/17 09:00 04/04/17 08:59 Heparin Sodium/ Sodium Chloride 2000 unit 2,000 unit ONCE INJ 03/05/17 08:00 03/06/17 23:59 Insulin Aspart (NovoLOG) EVERY 6 HOURS SUBQ 03/05/17 00:00 04/04/17 00:00 03/06/17 12:20 Lidocaine HCl (Xylocaine 1% 30ml) 30 ml ONCE INJ 03/05/17 08:00 03/06/17 23:59 Morphine Sulfate (Morphine Sulfate) 4 mg Q4H PRN IVP Severe Pain (Pain Scale 7-10) 03/04/17 22:00 03/11/17 21:59 Ondansetron HCl (Zofran) 4 mg Q6H PRN IVP Nausea & Vomiting 03/04/17 22:00 04/03/17 21:59 Polyethylene Glycol (Miralax) 17 gm DAILYPRN PRN ORAL Constipation 03/04/17 22:00 04/03/17 21:59 Promethazine HCl/ Codeine (Phenergan with Codeine) 5 ml Q4H PRN ORAL For Cough 03/04/17 22:00 04/03/17 21:59 Sodium Chloride 1,000 ml @ 50 mls/hr Q20H IV 03/04/17 23:00 04/03/17 22:59 03/06/17 06:02 Vancomycin HCl/ Dextrose (Vancomycin/D5W) 275 ml @ 180 mls/hr Q24H IVPB 03/06/17 17:00 03/11/17 16:59 ZAIRA ROSALES Mar 06, 2017 17:06
[2017-03-06 20:00] VITALS: BP 133/56
[2017-03-06] MEDS: Famotidine 20 MG/ 2ML VIAL IVP SCH (21:15)
[2017-03-07] VITALS: BP 150/70
[2017-03-07] MEDS: DuoNeb 0.5-3(2.5)mg/3ml neb HHN PRN (03:10)
[2017-03-07 04:00] VITALS: BP 117/51
[2017-03-07] MEDS: NovoLOG Insulin Flexpen SUBQ SCH ×4 (05:35→23:40)
[2017-03-07 08:00] VITALS: BP 112/48
[2017-03-07] MEDS: Heparin 5000 units/ml inj SUBQ SCH ×2 (09:00→21:00)
[2017-03-07] MEDS: Dyna-Hex 2% Top Sol 8oz TOPIC SCH (09:08)
[2017-03-07] MEDS: Cefepime HCl 2 GM in D5W 110 ML IV SCH (09:08)
[2017-03-07 12:03] VITALS: BP 139/72
[2017-03-07 16:00] VITALS: BP 91/56
[2017-03-07] MEDS: Vancomycin 750 MG in D5W 275 ML IVPB SCH (17:59)
--- NOTE | 2017-03-07 19:02 | Infectious Diseases Prog Note ---
Assessment/Plan Assessment/Plan A; Severe sepsis secondary to pneumonia, resolving CoNS in blood, likely contamination Pneumonia, non cavitary, w/o effusion Dementia Acute renal failure resolved Hypoxemic respiratory failure MRSA colonization VRE colonization intermittent leukocytosis, now normalized P: Continue Cefepime & Vancomycin D#5 of 7. okay to continue at SNF from ID perspective. monitor CBC Subjective ROS Limited/Unobtainable: Yes Allergies: Coded Allergies: LORAZEPAM (Unverified Allergy, Unknown, 03/02/17) METOCLOPRAMIDE (Unverified Allergy, Unknown, 03/02/17) QUETIAPINE (Unverified Allergy, Unknown, 03/02/17) ZOLPIDEM (Unverified Allergy, Unknown, 03/02/17) Objective Vital Signs Last 24 Hour Vital Signs Date Time Temp Pulse Resp B/P Pulse Ox O2 Delivery O2 Flow Rate FiO2 03/07/17 16:00 98.1 96 19 91/56 93 Room Air 03/07/17 15:11 97.7 03/07/17 12:03 97.7 101 20 139/72 97 Nasal Cannula 3.0 03/07/17 10:26 Nasal Cannula 2.0 32 03/07/17 10:25 83 18 Nasal Cannula 2.0 03/07/17 10:24 95 Nasal Cannula 2.0 03/07/17 08:00 97.7 83 17 112/48 95 Nasal Cannula 3.0 03/07/17 04:00 98.1 95 19 117/51 94 Nasal Cannula 2.0 03/07/17 03:23 121 20 98 Nasal Cannula 2.0 28 03/07/17 03:22 112 20 94 Nasal Cannula 2.0 28 03/07/17 01:25 98.4 03/07/17 00:00 99.8 105 22 150/70 94 Nasal Cannula 2.0 03/06/17 21:10 93 Nasal Cannula 3.0 32 03/06/17 21:10 114 18 Nasal Cannula 3.0 32 03/06/17 21:10 Nasal Cannula 3.0 32 03/06/17 20:00 99.7 107 20 133/56 93 Nasal Cannula 2.0 Height (Feet): 5 Height (Inches): 11.00 Weight (Pounds): 120 Objective HEENT: mucous membranes moist Respiratory/Chest: rhonchi - bilaterally, other - O2 by cannula Cardiovascular: normal rate Abdomen: soft, non tender, other - GT feeding Extremities: no edema, s/p picc Neurologic/Psychiatric: disoriented, aphasia, other - moves only left arm Current Medications Medications (Trade) Dose Ordered Sig/Ramiro Route PRN Reason Start Time Stop Time Status Last Admin Dose Admin Acetaminophen (Tylenol) 650 mg Q4H PRN ORAL fever>100.1 03/04/17 22:00 04/03/17 21:59 03/07/17 14:12 Acetaminophen/ Hydrocodone Bitart ([place] 5/325) 2 tab Q6H PRN GT Moderate Pain (Pain Scale 4-6) 03/05/17 03:00 03/12/17 02:59 Albuterol/ Ipratropium (DuoNeb 0.5-3(2.5)mg/3ml) 3 ml Q4H PRN HHN Shortness of Breath 03/04/17 22:00 03/09/17 21:59 03/07/17 03:10 Cefepime HCl/ Dextrose (Maxipime/D5W) 110 ml @ 220 mls/hr Q24H IV 03/05/17 09:00 03/12/17 08:59 03/07/17 09:08 Chlorhexidine Gluconate 1 applic 1 applic DAILY TOPIC 03/05/17 09:00 04/04/17 08:59 03/07/17 09:08 Dextrose (Dextrose 50%) STAT PRN IV Hypoglycemia 03/04/17 22:00 04/03/17 21:59 Famotidine (Pepcid I.v.) 20 mg QHS IVP 03/05/17 21:00 04/04/17 20:59 03/06/17 21:15 Heparin Sodium (Porcine) (Heparin 5000 units/ml) 5,000 units EVERY 12 HOURS SUBQ 03/05/17 09:00 04/04/17 08:59 Insulin Aspart (NovoLOG) EVERY 6 HOURS SUBQ 03/05/17 00:00 04/04/17 00:00 03/07/17 18:01 Morphine Sulfate (Morphine Sulfate) 4 mg Q4H PRN IVP Severe Pain (Pain Scale 7-10) 03/04/17 22:00 03/11/17 21:59 Ondansetron HCl (Zofran) 4 mg Q6H PRN IVP Nausea & Vomiting 8/14/17 22:00 04/03/17 21:59 Polyethylene Glycol (Miralax) 17 gm DAILYPRN PRN ORAL Constipation 03/04/17 22:00 04/03/17 21:59 Promethazine HCl/ Codeine (Phenergan with Codeine) 5 ml Q4H PRN ORAL For Cough 03/04/17 22:00 04/03/17 21:59 Vancomycin HCl (Vanco rx to dose) 1 ea DAILY PRN MISC PER RX PROTOCOL 03/06/17 18:15 04/05/17 18:14 Vancomycin HCl/ Dextrose (Vancomycin/D5W) 275 ml @ 180 mls/hr Q24H IVPB 03/06/17 17:00 03/11/17 16:59 03/07/17 17:59 Paul Amaya M.D. Mar 07, 2017 19:02
[2017-03-07] MEDS ORDERED: VANCOMYCIN1 GM/2502 IVPB (19:04)
[2017-03-07] MEDS ORDERED: CEFEPIME-D2 GM/50 ML IVPB (19:04)
[2017-03-07 20:00] VITALS: BP 132/74
[2017-03-07] MEDS: Famotidine 20 MG/ 2ML VIAL IVP SCH (21:14)
[2017-03-07] MEDS: Lidocaine 1% Plain 30 ml INJ SCH (22:33)
[2017-03-07] MEDS: Heparin 2000 units/Ns 1000ml INJ SCH (22:33)
[2017-03-07] MEDS ORDERED: MIRALAX17 G2 ORAL (22:44)
[2017-03-07] MEDS ORDERED: NOVOLOG100 UNITS1 SUBQ (22:44)
[2017-03-07] MEDS ORDERED: NORCO 5-325 TA1 EACH GT (22:44)
[2017-03-07] MEDS ORDERED: PROMETHAZINE-C118 M1 ORAL (22:44)
[2017-03-08 00:11] VITALS: BP 162/78
[2017-03-08 00:31] VITALS: BP 138/72
[2017-03-08] MEDS ORDERED: DuoNeb 0.5-3(2.5)mg/3ml neb HHN PRN (02:00)
[2017-03-08 04:29] VITALS: BP 133/58
[2017-03-08] MEDS: NovoLOG Insulin Flexpen SUBQ SCH ×3 (06:08→19:11)
--- NOTE | 2017-03-08 07:23 | Pulmonology Progress Note ---
Assessment/Plan Assessment/Plan ASSESSMENT acute hypoxemic respiratory failure. requiring 100% NRM-resolved severe sepsis PNA hyperglycemia due to type 2 DM DM, type 2 mild pulmonary HTN dysphagia, G tube status advanced dementia anemia of chronic disease acute renal failure 2 to dehydration -resolved [facility] OF [facility] floor initially in ICU on 100% NRM with close monitoring acute respiratorily failure resolved, weaned to O2 via NC acute respiratory failure lieky 2 to PNA abx, ID follows blood cx 1/2 + SCON likely contaminant O2 HHN prn initial CXR with infiltrates vs edema fu CXR with worsening bilateral infiltrates vs edema off IVF ECHO with pEF60% and RVSP of 40 c/w mild pulmonary HTN Venous Duplex BLE negative strict aspiration precaution, GT feeding, monitor tolerance BS management with SS of insulin prn, added Levemir, starting this am HgA1c- 6.2 at goal monitor HH anemia workup with low iron transfuse prn with goal to keep Hgb above 7, HH remain at baseline elevated CEA-4.7 consider outpatient GI procedures DVT GI prophylaxis monitor renal parameters lytes avoid nephrotoxic Acute renal failure was likely due to dehydration, resoled creat down to normal dc today to SNF on abx as per ID recommendations case discussed and evaluated by supervising physician Subjective Allergies: Coded Allergies: LORAZEPAM (Unverified Allergy, Unknown, 03/02/17) METOCLOPRAMIDE (Unverified Allergy, Unknown, 03/02/17) QUETIAPINE (Unverified Allergy, Unknown, 03/02/17) ZOLPIDEM (Unverified Allergy, Unknown, 03/02/17) Subjective afebrile, no leucocytosis on O2 via NC , pulse oximetry stable no signs of respiratory distress Objective Last 24 Hour Vital Signs Date Time Temp Pulse Resp B/P Pulse Ox O2 Delivery O2 Flow Rate FiO2 03/08/17 04:29 98.7 91 19 133/58 95 Room Air 03/08/17 00:31 138/72 03/08/17 00:11 98.7 102 19 162/78 95 Room Air 03/08/17 00:03 97 Nasal Cannula 2.0 28 03/08/17 00:03 Nasal Cannula 2.0 28 03/08/17 00:02 102 16 Nasal Cannula 2.0 28 03/07/17 20:00 98.1 92 19 132/74 95 Room Air 03/07/17 16:00 98.1 96 19 91/56 93 Room Air 03/07/17 15:11 97.7 03/07/17 12:03 97.7 101 20 139/72 97 Nasal Cannula 3.0 03/07/17 10:26 Nasal Cannula 2.0 32 03/07/17 10:25 83 18 Nasal Cannula 2.0 03/07/17 10:24 95 Nasal Cannula 2.0 03/07/17 08:00 97.7 83 17 112/48 95 Nasal Cannula 3.0 Intake and Output 03/07/17 03/08/17 19:00 07:00 Intake Total 60 ml 1085 ml Output Total 1100 ml Balance -1040 ml 1085 ml Intake Free Water 150 ml IV Total 275 ml Tube Feeding 60 ml 660 ml Output Urine Total 1100 ml # Voids 3 General Appearance: no acute distress, other - bedridden, elderly nonverbal female in NAD HEENT: normocephalic, atraumatic, anicteric, other - O2 via NC Respiratory/Chest: no respiratory distress, rhonchi - scattered Cardiovascular: normal peripheral pulses, normal rate, regular rhythm, no JVD, other - LUE PICC intact Abdomen: normal bowel sounds, soft, non tender, other - G tube Neurologic/Psychiatric: abnormal gait - bedridden , other - spastic LE Musculoskeletal: atrophy - BLE Laboratory Tests 03/08/17 04:30: White Blood Count [Pending], Red Blood Count [Pending], Hemoglobin [Pending], Hematocrit [Pending], Mean Corpuscular Volume [Pending], Mean Corpuscular Hemoglobin [Pending], Mean Corpuscular Hemoglobin Concent [Pending], Red Cell Distribution Width [Pending], Platelet Count [Pending], Mean Platelet Volume [ Pending], Neutrophils (%) (Auto) [Pending], Lymphocytes (%) (Auto) [Pending], Monocytes (%) (Auto) [Pending], Eosinophils (%) (Auto) [Pending], Basophils (%) (Auto) [Pending], Sodium Level [Pending], Potassium Level [Pending], Chloride Level [Pending], Carbon Dioxide Level [Pending], Blood Urea Nitrogen [Pending], Creatinine [Pending], Estimat Glomerular Filtration Rate [Pending], Glucose Level [Pending], Hemoglobin A1c [Pending], Calcium Level [Pending] Current Medications Medications (Trade) Dose Ordered Sig/Ramiro Route PRN Reason Start Time Stop Time Status Last Admin Dose Admin Acetaminophen (Tylenol) 650 mg Q4H PRN ORAL fever>100.1 03/04/17 22:00 04/03/17 21:59 03/07/17 14:12 Acetaminophen/ Hydrocodone Bitart ([place] 5/325) 2 tab Q6H PRN GT Moderate Pain (Pain Scale 4-6) 03/05/17 03:00 03/12/17 02:59 Albuterol/ Ipratropium (DuoNeb 0.5-3(2.5)mg/3ml) 3 ml Q4H PRN HHN Shortness of Breath 03/08/17 02:00 03/12/17 23:59 Cefepime HCl/ Dextrose (Maxipime/D5W) 110 ml @ 220 mls/hr Q24H IV 03/05/17 09:00 03/12/17 08:59 03/07/17 09:08 Chlorhexidine Gluconate 1 applic 1 applic DAILY TOPIC 03/05/17 09:00 04/04/17 08:59 03/07/17 09:08 Dextrose (Dextrose 50%) STAT PRN IV Hypoglycemia 03/04/17 22:00 04/03/17 21:59 Famotidine (Pepcid I.v.) 20 mg QHS IVP 03/05/17 21:00 04/04/17 20:59 03/07/17 21:14 Heparin Sodium (Porcine) (Heparin 5000 units/ml) 5,000 units EVERY 12 HOURS SUBQ 03/05/17 09:00 04/04/17 08:59 Insulin Aspart (NovoLOG) EVERY 6 HOURS SUBQ 03/05/17 00:00 04/04/17 00:00 03/08/17 06:08 Insulin Detemir (Levemir) 8 units Q24H SUBQ 03/08/17 09:00 04/07/17 08:59 Morphine Sulfate (Morphine Sulfate) 4 mg Q4H PRN IVP Severe Pain (Pain Scale 7-10) 03/04/17 22:00 03/11/17 21:59 Ondansetron HCl (Zofran) 4 mg Q6H PRN IVP Nausea & Vomiting 03/04/17 22:00 04/03/17 21:59 Polyethylene Glycol (Miralax) 17 gm DAILYPRN PRN ORAL Constipation 03/04/17 22:00 04/03/17 21:59 Promethazine HCl/ Codeine (Phenergan with Codeine) 5 ml Q4H PRN ORAL For Cough 03/04/17 22:00 04/03/17 21:59 Vancomycin HCl (Vanco rx to dose) 1 ea DAILY PRN MISC PER RX PROTOCOL 03/06/17 18:15 04/05/17 18:14 Vancomycin HCl/ Dextrose (Vancomycin/D5W) 275 ml @ 180 mls/hr Q24H IVPB 03/06/17 17:00 03/11/17 16:59 03/07/17 17:59 Yuri (Marielena)Kathy NP Mar 08, 2017 07:23
[2017-03-08 07:34] LABS: BASOPHILS % (AUTO) 1.1 % (0.0-2.0); EOSINOPHILS % (AUTO) 2.3 % (0.0-3.0); LYMPHOCYTES % (AUTO) 7.8 % (20.0-45.0); MEAN CORPUSCULAR HEMOGLOBIN 34.6 PG (27.0-31.0); MEAN CORPUSCULAR HGB CONC 34.3 G/DL (32.0-36.0); MEAN CORPUSCULAR VOLUME 101 FL (80-99); MEAN PLATELET VOLUME 11.6 FL (6.5-10.1); MONOCYTES % (AUTO) 10.8 % (1.0-10.0); NEUTROPHILS % (AUTO) 77.9 % (45.0-75.0); PLATELET COUNT 121 K/UL (150-450); RED BLOOD COUNT 2.64 M/UL (4.20-5.40); RED CELL DISTRIBUTION WIDTH 12.2 % (11.6-14.8); WHITE BLOOD COUNT 10.3 K/UL (4.8-10.8)
[2017-03-08 07:41] LABS: ANION GAP 8 (5-15); CALCIUM 8.8 mg/dL (8.6-10.2); CARBON DIOXIDE 28 mEQ/L (20-30); CHLORIDE 103 mEQ/L (98-107); CREATININE 0.6 mg/dL (0.5-0.9); HEMOLYSIS 1; POTASSIUM 3.6 mEQ/L (3.4-4.9); SODIUM 139 mEQ/L (135-145)
[2017-03-08 08:00] VITALS: BP 154/81
[2017-03-08] MEDS: Cefepime HCl 2 GM in D5W 110 ML IV SCH (08:35)
[2017-03-08] MEDS: Heparin 5000 units/ml inj SUBQ SCH (08:35)
[2017-03-08] MEDS ORDERED: Levemir Flexpen SUBQ SCH (09:00)
[2017-03-08] MEDS: Dyna-Hex 2% Top Sol 8oz TOPIC SCH (10:26)
--- NOTE | 2017-03-08 11:09 | Cardiology Report ---
APPROVED REPORT EXAM: Two-dimensional and M-mode echocardiogram with Doppler and color Doppler. INDICATION Left Ventricular Function M-Mode DIMENSIONS IVSd0.8 (0.7-1.1cm)Left Atrium (MM)3.8 (1.6-4.0cm) LVDd3.7 (3.5-5.6cm)Aortic Root2.6 (2.0-3.7cm) PWd1.0 (0.7-1.1cm)Aortic Cusp Exc.1.7 (1.5-2.0cm) LVDs1.7 (2.5-4.0cm) PWs1.5 cm Other Information Technically limited study due to combative patient Technically difficult study due to combative patient. Study quality precludes accurate assessment of regional wall motion. Normal left ventricular chamber size, systolic function and wall motion. Left ventricular ejection fraction estimated to be 60 %. Mild left ventricular hypertrophy. Anterior Echo-free space, may be due to pericardial fat or effusion. All other cardiac chamber sizes are within normal limits. Mild focal aortic valve sclerosis with adequate cusp excursion. Mildly thickened mitral valve leaflets with normal excursion. Mild mitral annulus and aortic root calcification. Pulmonic valve not well visualized. Normal tricuspid valve structure. Subcostal views not obtained due to GI Tube. A color flow and spectral Doppler study was performed and revealed: Trace aortic regurgitation. Mild mitral regurgitation. Mitral diastolic velocities suggest reduced left ventricular relaxation (Grade I). Mild tricuspid regurgitation. Tricuspid systolic velocities suggests peak right ventricular systolic pressure of 40 mmHg, consistent with mild pulmonary hypertension. No pulmonic regurgitation present.
[2017-03-08 11:57] VITALS: BP 149/66
[2017-03-08] MEDS ORDERED: LEVEMIR FL100 UNIT/1 SUBQ (13:44)
--- NOTE | 2017-03-08 14:31 | Infectious Diseases Prog Note ---
Assessment/Plan Assessment/Plan A; Severe sepsis secondary to pneumonia, resolving CoNS in blood, likely contamination Pneumonia, non cavitary, w/o effusion Dementia Acute renal failure resolved Hypoxemic respiratory failure MRSA colonization VRE colonization intermittent leukocytosis, now normalized P: Continue Cefepime & Vancomycin D#6 of 7. okay to continue at SNF from ID perspective. monitor CBC Subjective Allergies: Coded Allergies: LORAZEPAM (Unverified Allergy, Unknown, 03/02/17) METOCLOPRAMIDE (Unverified Allergy, Unknown, 03/02/17) QUETIAPINE (Unverified Allergy, Unknown, 03/02/17) ZOLPIDEM (Unverified Allergy, Unknown, 03/02/17) All Systems: reviewed and negative except above Objective Vital Signs Last 24 Hour Vital Signs Date Time Temp Pulse Resp B/P Pulse Ox O2 Delivery O2 Flow Rate FiO2 03/08/17 11:57 97.2 94 21 149/66 100 Nasal Cannula 2.0 03/08/17 08:43 Nasal Cannula 2.0 28 03/08/17 08:41 96 Nasal Cannula 2.0 28 03/08/17 08:40 102 20 Nasal Cannula 2.0 28 03/08/17 08:00 98.2 105 20 154/81 98 Nasal Cannula 2.0 03/08/17 04:29 98.7 91 19 133/58 95 Room Air 03/08/17 00:31 138/72 03/08/17 00:11 98.7 102 19 162/78 95 Room Air 03/08/17 00:03 97 Nasal Cannula 2.0 28 03/08/17 00:03 Nasal Cannula 2.0 28 03/08/17 00:02 102 16 Nasal Cannula 2.0 28 03/07/17 20:00 98.1 92 19 132/74 95 Room Air 03/07/17 16:00 98.1 96 19 91/56 93 Room Air 03/07/17 15:11 97.7 Height (Feet): 5 Height (Inches): 11.00 Weight (Pounds): 115 Objective HEENT: mucous membranes moist Respiratory/Chest: rhonchi - bilaterally, other - O2 by cannula Cardiovascular: normal rate Abdomen: soft, non tender, other - GT feeding Extremities: no edema, LUE picc in place, c/d/i Neurologic/Psychiatric: disoriented at baseline, aphasia, other - moves only left arm Laboratory Tests Test 03/08/17 04:30 White Blood Count 10.3 K/UL (4.8-10.8) Red Blood Count 2.64 M/UL (4.20-5.40) L Hemoglobin 9.1 G/DL (12.0-16.0) L Hematocrit 26.6 % (37.0-47.0) L Mean Corpuscular Volume 101 FL (80-99) H Mean Corpuscular Hemoglobin 34.6 PG (27.0-31.0) H Mean Corpuscular Hemoglobin Concent 34.3 G/DL (32.0-36.0) Red Cell Distribution Width 12.2 % (11.6-14.8) Platelet Count 121 K/UL (150-450) L Mean Platelet Volume 11.6 FL (6.5-10.1) H Neutrophils (%) (Auto) 77.9 % (45.0-75.0) H Lymphocytes (%) (Auto) 7.8 % (20.0-45.0) L Monocytes (%) (Auto) 10.8 % (1.0-10.0) H Eosinophils (%) (Auto) 2.3 % (0.0-3.0) Basophils (%) (Auto) 1.1 % (0.0-2.0) Sodium Level 139 mEQ/L (135-145) Potassium Level 3.6 mEQ/L (3.4-4.9) Chloride Level 103 mEQ/L (98-107) Carbon Dioxide Level 28 mEQ/L (20-30) Anion Gap 8 (5-15) Blood Urea Nitrogen 15 mg/dL (7-23) Creatinine 0.6 mg/dL (0.5-0.9) Estimat Glomerular Filtration Rate mL/min (>60) Glucose Level 227 mg/dL (74-106) H Hemoglobin A1c 6.2 % (< 6.0) H Calcium Level 8.8 mg/dL (8.6-10.2) Current Medications Medications (Trade) Dose Ordered Sig/Ramiro Route PRN Reason Start Time Stop Time Status Last Admin Dose Admin Acetaminophen (Tylenol) 650 mg Q4H PRN ORAL fever>100.1 03/04/17 22:00 04/03/17 21:59 03/07/17 14:12 Acetaminophen/ Hydrocodone Bitart ([address] 5/325) 2 tab Q6H PRN GT Moderate Pain (Pain Scale 4-6) 03/05/17 03:00 03/12/17 02:59 Albuterol/ Ipratropium (DuoNeb 0.5-3(2.5)mg/3ml) 3 ml Q4H PRN HHN Shortness of Breath 03/08/17 02:00 03/12/17 23:59 Cefepime HCl/ Dextrose (Maxipime/D5W) 110 ml @ 220 mls/hr Q24H IV 03/05/17 09:00 03/12/17 08:59 03/08/17 08:35 Chlorhexidine Gluconate 1 applic 1 applic DAILY TOPIC 03/05/17 09:00 04/04/17 08:59 03/08/17 10:26 Dextrose (Dextrose 50%) STAT PRN IV Hypoglycemia 03/04/17 22:00 04/03/17 21:59 Famotidine (Pepcid I.v.) 20 mg QHS IVP 03/05/17 21:00 04/04/17 20:59 03/07/17 21:14 Heparin Sodium (Porcine) (Heparin 5000 units/ml) 5,000 units EVERY 12 HOURS SUBQ 03/05/17 09:00 04/04/17 08:59 Insulin Aspart (NovoLOG) EVERY 6 HOURS SUBQ 03/05/17 00:00 04/04/17 00:00 03/08/17 11:54 Insulin Detemir (Levemir) 8 units Q24H SUBQ 03/08/17 09:00 04/07/17 08:59 03/08/17 10:26 Morphine Sulfate (Morphine Sulfate) 4 mg Q4H PRN IVP Severe Pain (Pain Scale 7-10) 03/04/17 22:00 03/11/17 21:59 Ondansetron HCl (Zofran) 4 mg Q6H PRN IVP Nausea & Vomiting 03/04/17 22:00 04/03/17 21:59 Polyethylene Glycol (Miralax) 17 gm DAILYPRN PRN ORAL Constipation 03/04/17 22:00 04/03/17 21:59 Promethazine HCl/ Codeine (Phenergan with Codeine) 5 ml Q4H PRN ORAL For Cough 03/04/17 22:00 04/03/17 21:59 Vancomycin HCl (Vanco rx to dose) 1 ea DAILY PRN MISC PER RX PROTOCOL 03/06/17 18:15 04/05/17 18:14 Vancomycin HCl/ Dextrose (Vancomycin/D5W) 275 ml @ 180 mls/hr Q24H IVPB 03/06/17 17:00 03/11/17 16:59 03/07/17 17:59 Paul Amaya M.D. Mar 08, 2017 14:31
[2017-03-08] MEDS ORDERED: 1/2 NS 1000ml IV ONE (14:49)
[2017-03-08] MEDS ORDERED: NS 275ml ONE (14:50)
[2017-03-08] MEDS ORDERED: Tubing IV Secondary IV ONE (14:50)
[2017-03-08 16:00] VITALS: BP 138/66
[2017-03-08] MEDS: Vancomycin 750 MG in D5W 275 ML IVPB SCH (17:12)
--- NOTE | 2017-03-10 17:55 | Diagnostic Imaging Report ---
APPROVED REPORT CPT Code: 05515 Present Symptoms Upper Extremity Pain: Upper Extremity Edema: Right Shortness of breath RIGHT UPPER EXTREMITY: Venous imaging reveals patency of the internal jugular, subclavian, axillary and brachial veins. The cephalic and basilic veins are also patent. Doppler indicates normal spontaneous flow within these venous segments.
--- NOTE | 2017-03-11 13:22 | Discharge Summary ---
Discharge Summary Hospital Course Date of Admission Mar 02, 2017 at 23:23 Date of Discharge Mar 08, 2017 at 20:20 Admitting Diagnosis Pneumonia HPI Brit Harp is a 81 year old female who was admitted on Mar 02, 2017 at 23:23 for Pneumonia Hospital Course dc summary #[id number] Discharge Medications New Medications: Cefepime Hcl/D5w (Cefepime-Dextrose 2 Gm/50 Ml) 2 Gm/50 Ml Piggyback 2 GM IVPB Q24H for 2 Days, BAG Vancomycin Hcl/D5w (Vancomycin-D5w 1 G/250 Ml) 1 Gm/250 Ml Plast..bag 750 MG IVPB Q24H for 2 Days, BAG Codeine/Promethazine Hcl* (Promethazine-Codeine Syrup*) 118 Ml Syrup 5 ML ORAL Q4H PRN for 30 Days, ML Hydrocodone Bit/Acetaminophen 5-325* ([place] 5-325*) 1 Each Tablet 2 TAB GT Q6H PRN for 30 Days, TAB Insulin Aspart (Novolog Flexpen) 100 Unit/1 Ml Insuln.pen 0 UNITS SUBQ EVERY 6 HOURS for 30 Days, EA Insulin Detemir (Levemir Flexpen) 100 Unit/1 Ml Insuln.pen 8 UNITS SUBQ Q24H, #1 EA Polyethylene Glycol 3350* (Miralax*) 17 Gm Powd.pack 17 GM ORAL DAILYPRN PRN for 30 Days, PACK Discharge Condition Upon Discharge: stable Discharge Disposition Patient was discharged to SNF/Subacute Facility(03) Discharge Diagnoses: Yuri (Marielena)Kathy NP Mar 11, 2017 13:22
== END 2017-03-08 20:20 | DRG 871 ==
LOC: ENRESERVTM → ENRESERVDT → EDBD 21:37 → EDSEX 21:37 → EMR 22:25 → EDBD 23:23 → 2E 23:23 → EDUNIT# 23:23 → EDBEDREQ 23:26 → 2E 03-03 02:00 → EDBEDREQ 03-03 02:05 → ICU 03-03 02:18 → 2W 03-03 21:45 → 4W 03-04 22:25
PROC: 02HV33Z Insertion of Infusion Device into Superior Vena Cava, Percutaneous Approach (ICD-10-PCS; principal; 2017-03-06)
DX: A41.9 Sepsis, unspecified organism (principal); J18.9 Pneumonia, unspecified organism; J96.01 Acute respiratory failure with hypoxia; N17.9 Acute kidney failure, unspecified; N39.0 Urinary tract infection, site not specified; E11.65 Type 2 diabetes mellitus with hyperglycemia; F03.90 Unspecified dementia, unspecified severity, without behavioral disturbance, psychotic disturbance, mood disturbance, and anxiety; I50.9 Heart failure, unspecified; Z43.1 Encounter for attention to gastrostomy; R65.20 Severe sepsis without septic shock; Z79.4 Long term (current) use of insulin; Z88.8 Allergy status to other drugs, medicaments and biological substances; Z22.322 Carrier or suspected carrier of Methicillin resistant Staphylococcus aureus
CPT/HCPCS: 36415; 36569; 36600; 71010; 76775; 76937; 80048; 80053; 80069; 80202; 81001; 81003; 82378; 82550; 82553; 82607; 82746; 82803; 82962; 83036; 83540; 83550; 83605; 83615; 83735; 83880; 84100; 84133; 84300; 84484; 84550; 85007; 85025; 85044; 85060; 85610; 85651; 85730; 87040; 87081; 87181; 89050; 93005; 93306; 93971; 94640; 94664; 94760; J1815; J2405; J7620; S5561

== ENCOUNTER 2017-03-12 01:22 | Inpatient (IN) | payer MEDICARE, MEDICAID ==
[~2017-03-12] VITALS: Ht 157.5 cm; Wt 67.8 kg
[2017-03-12] VITALS (20 sets, daily range): BP systolic 91–156; BP diastolic 37–120
[~2017-03-12 01:22] MED LIST: CEFEPIME-D2 GM/50 ML IVPB; LEVEMIR FL100 UNIT/1 SUBQ; MIRALAX17 G2 ORAL; NORCO 5-325 TA1 EACH GT; NOVOLOG100 UNITS1 SUBQ; PROMETHAZINE-C118 M1 ORAL; VANCOMYCIN1 GM/2502 IVPB
[2017-03-12] MEDS ORDERED: Vancomycin 1 GM in NS 275 ML IV ONE (01:30)
[2017-03-12] MEDS ORDERED: Acetaminophen 500mg (ES) tab ORAL ONE (01:30)
[2017-03-12] MEDS ORDERED: Cefepime HCl 1 GM in D5W 55 ML IVPB ONE (01:30)
--- NOTE | 2017-03-12 01:30 | Emergency Room Report ---
History of Present Illness General Chief Complaint: Dyspnea/Respdistress Source: Medical Record, EMS Present Illness HPI This is an 81-year-old female with multiple medical problem. She just discharged from the hospital for sepsis from pneumonia. She presents with decreasing oxygenation and increasing work of breathing. He her also with a fever. Onset tonight. No nausea no vomiting. Per EMS was hypoxic on 2 L. History is limited because of her condition and patient can't give a history. History is through her senior living note EMS. 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 Hx Memory Loss: Yes Hx Concentration Difficulty: No Hx Speech Problem: Yes - aphasic Review of Systems Constitutional: Reports: fever Eye: Denies: blurred vision, eye pain ENT: Denies: ear pain, nose congestion, throat swelling Respiratory: Reports: shortness of breath Cardiovascular: Denies: chest pain, palpitations Gastrointestinal: Denies: abdominal pain, diarrhea, nausea, vomiting Musculoskeletal: Denies: back pain, joint pain Skin: Denies: rash Neurological: Denies: headache, numbness Endocrine: Denies: increased thirst, increased urine Hematologic/Lymphatic: Denies: easy bruising All Other Systems: negative except mentioned in HPI Physical Exam Vital Signs Date Time Temp Pulse Resp B/P Pulse Ox O2 Delivery O2 Flow Rate FiO2 03/12/17 01:22 61 20 137/4 99 Non-Rebreather 15.0 vitals with fever Sp02 EP Interpretation: abnormal General Appearance: moderate distress, Chronically Ill Head: normocephalic, atraumatic Eyes: bilateral eye EOMI, bilateral eye PERRL ENT: hearing grossly normal, normal pharynx Neck: full range of motion, supple, no meningismus Respiratory: chest non-tender, respiratory distress, decreased breath sounds, accessory muscle use, crackles Cardiovascular #1: regular rate, rhythm, no murmur Gastrointestinal: normal bowel sounds, non tender, no mass, no organomegaly, no bruit, non-distended Musculoskeletal: back normal, normal range of motion Neurologic: grossly normal Psychiatric: mood/affect normal Skin: warm/dry Procedures Critical Care Time Critical Care Time Critical care is mandated in this patient who presented with sepsis from pneumonia. Patient require my urgent intervention to attenuate the risks of metabolic collapse which may lead to cardiovascular collapse and . Critical care time is 75 minutes excluding any reportable procedure. Critical care time included evaluation, multiple reevaluation, looking at old charts, interpreting laboratory and diagnostic data, discussing case with patient and family and consultants, and charting. Central Line Central Line : Consent: Verbal Central Line Lumen: triple Maximal Sterile Barrier Tech: yes cap, yes mask, yes sterile gown, yes sterile gloves, yes large sterile sheet, yes hand hygiene, yes chlorhexidine prep Central Line Postion: femoral (R) Complications: none Central Line Post Position: sutured, good blood return Attempts: One Patient Tolerated: Well Complications: None Progress central line done using ultrasound-guided. Intubation Intubation : Consent: Emergent Intubation Method: orotracheal Tube Size (cm): 7.0 Medications: Etomidate, Succinylcholine Intubation Complications: no complications Post Intubation Xray: Yes Progress/Xray Impression: Chest x-ray showed ETT in good location. Attempts: One Patient Tolerated: Well Complications: None Medical Decision Making Diagnostic Impression: Primary Impression: Respiratory failure requiring intubation Additional Impressions: Pneumonia Qualified Codes: J18.9 - Pneumonia, unspecified organism UTI (urinary tract infection) Qualified Codes: N30.00 - Acute cystitis without hematuria Dehydration Hyperglycemia due to type 2 diabetes mellitus Qualified Codes: E11.65 - Type 2 diabetes mellitus with hyperglycemia Proteinuria Qualified Codes: R80.9 - Proteinuria, unspecified ER Course Patient presents with severe sepsis secondary to pneumonia. Or respiratory status deteriorate and require intubation. She's actually improving after IV fluid and mechanical ventilation. Prognosis poor. I discussed CODE STATUS with son and daughter. Her daughter is leaning toward in our. Son still want full code. Laboratory Tests Test 03/12/17 01:55 03/12/17 02:23 White Blood Count 26.3 K/UL (4.8-10.8) *H Red Blood Count 3.32 M/UL (4.20-5.40) L Hemoglobin 11.4 G/DL (12.0-16.0) L Hematocrit 34.8 % (37.0-47.0) L Mean Corpuscular Volume 105 FL (80-99) H Mean Corpuscular Hemoglobin 34.4 PG (27.0-31.0) H Mean Corpuscular Hemoglobin Concent 32.8 G/DL (32.0-36.0) Red Cell Distribution Width 13.2 % (11.6-14.8) Platelet Count 224 K/UL (150-450) Mean Platelet Volume 10.1 FL (6.5-10.1) Neutrophils (%) (Auto) % (45.0-75.0) Lymphocytes (%) (Auto) % (20.0-45.0) Monocytes (%) (Auto) % (1.0-10.0) Eosinophils (%) (Auto) % (0.0-3.0) Basophils (%) (Auto) % (0.0-2.0) Differential Total Cells Counted 100 Neutrophils % (Manual) 78 % (45-75) H Lymphocytes % (Manual) 4 % (20-45) L Monocytes % (Manual) 4 % (1-10) Eosinophils % (Manual) 0 % (0-3) Basophils % (Manual) 0 % (0-2) Band Neutrophils 14 % (0-8) H Platelet Estimate Adequate Platelet Morphology Normal Red Blood Cell Morphology Normal Prothrombin Time 9.9 SEC (9.30-11.50) Prothromb Time International Ratio 0.9 (0.9-1.1) Activated Partial Thromboplast Time 19 SEC (23-33) L Sodium Level 148 mEQ/L (135-145) H Potassium Level 3.9 mEQ/L (3.4-4.9) Chloride Level 103 mEQ/L (98-107) Carbon Dioxide Level 25 mEQ/L (20-30) Anion Gap 20 (5-15) H Blood Urea Nitrogen 56 mg/dL (7-23) H Creatinine 1.6 mg/dL (0.5-0.9) H Estimat Glomerular Filtration Rate mL/min (>60) Glucose Level 463 mg/dL (74-106) H Lactic Acid Level 6.10 mmol/L (0.66-2.22) H Calcium Level 10.0 mg/dL (8.6-10.2) Total Bilirubin 0.3 mg/dL (0.0-1.2) Aspartate Amino Transf (AST/SGOT) 28 U/L (5-40) Alanine Aminotransferase (ALT/SGPT) 15 U/L (3-33) Alkaline Phosphatase 123 U/L (35-104) H Total Creatine Kinase 183 U/L (26-140) H Creatine Kinase MB < 1.5 ng/mL (< 3.8) Creatine Kinase MB Relative Index 0.8 Troponin I < 0.30 ng/mL (<=0.30) Total Protein 7.4 g/dL (6.6-8.7) Albumin 3.3 g/dL (3.5-5.2) L Globulin 4.1 g/dL Albumin/Globulin Ratio 0.8 (1.0-2.7) L Urine Color Yellow Urine Appearance Cloudy Urine pH 5 (4.5-8.0) Urine Specific [place] 1.015 (1.005-1.035) Urine Protein 3+ (NEGATIVE) H Urine Glucose (UA) 4+ (NEGATIVE) H Urine Ketones 1+ (NEGATIVE) H Urine Occult Blood 3+ (NEGATIVE) H Urine Nitrite Negative (NEGATIVE) Urine Bilirubin Negative (NEGATIVE) Urine Urobilinogen Normal MG/DL (0.0-1.0) Urine Leukocyte Esterase 1+ (NEGATIVE) H Urine RBC 2-4 /HPF (0 - 2) H Urine WBC 0-2 /HPF (0 - 2) Urine Squamous Epithelial Cells Moderate /LPF (NONE/OCC) H Urine Amorphous Sediment Many /LPF (NONE) H Urine Bacteria Moderate /HPF (NONE) H Lab Results Impression labs with leukocytosis and electrolyte abnormality EKG Diagnostic Results EKG Time: 01:30 Rate: normal Rhythm: NSR ST Segments: no acute changes Rhythm Strip Diag. Results Rhythm Strip Time: 01:30 EP Interpretation: yes Rate: 60 Rhythm: NSR, no PVC's, no ectopy Chest X-Ray Diagnostic Results Chest X-Ray Diagnostic Results : Chest X-Ray Ordered: Yes # of Views/Limited/Complete: 1 View Indication: Shortness of Breath EP Interpretation: Yes Interpretation: no effusion, no pneumothorax, other - Bilateral infiltrate Impression: Other - pneumonia Interpreting ER Provider: Electronically signed by Vahid Recinos MD Other X-Ray Diagnostic Results Other X-Ray Diagnostic Results : X-Ray ordered: CXR # of Views/Limited Vs Complete: 1 View Indication: Other - post intubation EP Interpretation: Yes Interpretation: no dislocation, no soft tissue swelling, other - no ptx, ETT in good position Impression: Other - satistfactory intubation Interpreting ER Provider: Electronically signed by Vahid Recinos MD Last Vital Signs Date Time Temp Pulse Resp B/P Pulse Ox O2 Delivery O2 Flow Rate FiO2 03/12/17 01:22 61 20 137/4 99 Non-Rebreather 15.0 Status: improved Disposition: ADMITTED INPATIENT Condition: Critical VAHID RECINOS M.D. Mar 12, 2017 01:30
[2017-03-12] MEDS ORDERED: Cefepime 1gm vial ONE (01:52)
[2017-03-12 02:18] LABS: MEAN CORPUSCULAR HEMOGLOBIN 34.4 PG (27.0-31.0); MEAN CORPUSCULAR HGB CONC 32.8 G/DL (32.0-36.0); MEAN CORPUSCULAR VOLUME 105 FL (80-99); MEAN PLATELET VOLUME 10.1 FL (6.5-10.1); PLATELET COUNT 224 K/UL (150-450); RED BLOOD COUNT 3.32 M/UL (4.20-5.40); RED CELL DISTRIBUTION WIDTH 13.2 % (11.6-14.8)
[2017-03-12 02:24] LABS: INR 0.9 (0.9-1.1); PROTHROMBIN TIME 9.9 SEC (9.30-11.50)
[2017-03-12 02:27] LABS: WHITE BLOOD COUNT 26.3 K/UL (4.8-10.8)
[2017-03-12 02:30] LABS: TROPONIN I < 0.30 ng/mL (<=0.30)
[2017-03-12] MEDS ORDERED: Acetaminophen 650 MG SUPP RECTAL ONE (02:30)
[2017-03-12 02:32] LABS: ALANINE AMINOTRANSFERASE 15 U/L (3-33); ALBUMIN/GLOBULIN RATIO 0.8 (1.0-2.7); ANION GAP 20 (5-15); ASPARTATE AMINO TRANSFERASE 28 U/L (5-40); CARBON DIOXIDE 25 mEQ/L (20-30); CHLORIDE 103 mEQ/L (98-107); CREATININE 1.6 mg/dL (0.5-0.9); HEMOLYSIS 39; POTASSIUM 3.9 mEQ/L (3.4-4.9); SODIUM 148 mEQ/L (135-145); TOTAL PROTEIN 7.4 g/dL (6.6-8.7)
[2017-03-12 02:37] LABS: CKMB < 1.5 ng/mL (< 3.8); REFLEX LACTIC ACID YES OR NO YES
[2017-03-12 02:55] LABS: BAND NEUTROPHILS % (MANUAL) 14 % (0-8); BASOPHILS % (MANUAL) 0 % (0-2); EOSINOPHILS % (MANUAL) 0 % (0-3); LYMPHOCYTES % (MANUAL) 4 % (20-45); NEUTROPHILS % (MANUAL) 78 % (45-75); PLATELET ESTIMATE ADEQUATE; PLATELET MORPHOLOGY NORMAL; TOTAL CELLS COUNTED 100
[2017-03-12 03:05] LABS: KETONES,URINE 1+ (NEGATIVE); LEUKOCYTE ESTERASE ,URINE 1+ (NEGATIVE); NITRITE,URINE NEGATIVE (NEGATIVE); PH,URINE 5 (4.5-8.0); PROTEIN,URINE 3+ (NEGATIVE); UROBILINOGEN,URINE NORMAL MG/DL (0.0-1.0)
[2017-03-12 03:09] LABS: APPEARANCE,URINE CLOUDY; BACTERIA,URINE MODERATE /HPF; SQUAMOUS EPITHELIAL CELL,UR MODERATE /LPF (NONE/OCC); WBC,URINE 0-2 /HPF (0 - 2)
[2017-03-12 03:10] LABS: AMORPHOUS SEDIMENT,UR MANY /LPF
[2017-03-12] MEDS ORDERED: Etomidate 40mg/20ml Inj IV ONE ×2 (03:45→14:12)
[2017-03-12] MEDS ORDERED: Succinylcholine 20mg/ml 10ml vial IV ONE (03:45)
[2017-03-12] MEDS ORDERED: Vancomycin 1gm inj IVPB ONE (03:47)
[2017-03-12] MEDS ORDERED: Midazolam 2mg/2ml Inj IVP ONE ×2 (04:30→07:00)
[2017-03-12 05:35] LABS: ABG PCO2 31.2 mmHg (35.0-45.0)
[2017-03-12 05:36] LABS: ABG ALLEN TEST POSITIVE; ABG BASE EXCESS 1.2
[2017-03-12] MEDS ORDERED: SENNA8.6 M2 GT (06:53)
[2017-03-12] MEDS ORDERED: NS 250 ML IVPB ONE (07:00)
[2017-03-12] MEDS ORDERED: DuoNeb 0.5-3(2.5)mg/3ml neb HHN PRN (07:30)
[2017-03-12] MEDS ORDERED: Morphine Sulfate 4mg/ml Inj IVP PRN (07:30)
[2017-03-12] MEDS ORDERED: Miralax 17gm pkt ORAL PRN (07:30)
[2017-03-12] MEDS: Heparin 5000 units/ml inj SUBQ SCH ×2 (08:23→21:05)
--- NOTE | 2017-03-12 08:51 | History and Physical ---
History of Present Illness General Date patient seen: Mar 12, 2017 Reason for Hospitalization: Dyspnea/Respdistress Present Illness HPI 81-year-old female with hx of CVA, PEG, bed bound just discharged from the hospital for sepsis from pneumonia. She presents with decreasing oxygenation and increasing work of breathing. He her also with a fever. Pt was in respiratory failure and needed to be intubated. She is transferred to ICU for further management. Allergies: Coded Allergies: LORAZEPAM (Unverified Allergy, Unknown, 03/02/17) METOCLOPRAMIDE (Unverified Allergy, Unknown, 03/02/17) QUETIAPINE (Unverified Allergy, Unknown, 03/02/17) ZOLPIDEM (Unverified Allergy, Unknown, 03/02/17) Medication History Scheduled Cefepime Hcl/D5w (Cefepime-Dextrose 2 Gm/50 Ml), 2 GM IVPB Q24H Insulin Aspart (Novolog Flexpen), 0 UNITS SUBQ EVERY 6 HOURS Insulin Detemir (Levemir Flexpen), 8 UNITS SUBQ Q24H Sennosides (Senna), 8.6 MG GT BID, (Reported) Vancomycin Hcl/D5w (Vancomycin-D5w 1 G/250 Ml), 750 MG IVPB Q24H Scheduled PRN Codeine/Promethazine Hcl* (Promethazine-Codeine Syrup*), 5 ML ORAL Q4H PRN Hydrocodone Bit/Acetaminophen 5-325* ([place] 5-325*), 2 TAB GT Q6H PRN Polyethylene Glycol 3350* (Miralax*), 17 GM ORAL DAILYPRN PRN Patient History Healthcare decision maker Resuscitation status Advanced Directive on File Past Medical/Surgical History Past Medical/Surgical History: (1) Feeding by G-tube (2) Advanced dementia Review of Systems All Other Systems: negative except mentioned in HPI Physical Exam General Appearance: WD/WN Lines, tubes and drains: peripheral HEENT: normocephalic, atraumatic Neck: non-tender, normal alignment Respiratory/Chest: chest wall non-tender, lungs clear Breasts: no masses Cardiovascular/Chest: normal peripheral pulses Abdomen: normal bowel sounds, non tender Genitourinary/Rectal: normal genital exam, normal rectal exam Extremities: normal range of motion, non-tender Skin Exam: warm/dry 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: 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 project coordinator II-XII grossly normal Last 24 Hour Vital Signs Date Time Temp Pulse Resp B/P Pulse Ox O2 Delivery O2 Flow Rate FiO2 03/12/17 08:08 112/39 03/12/17 08:00 98.7 88 14 112/39 98 Endotracheal Tube 30 03/12/17 07:20 100.0 94 16 109/33 97 Endotracheal Tube 15.0 30 03/12/17 07:00 94 16 30 03/12/17 06:00 100.0 94 21 111/41 97 Endotracheal Tube 35 03/12/17 05:00 93 20 101/38 100 Endotracheal Tube 100 03/12/17 04:56 98 20 30 03/12/17 04:15 102.0 03/12/17 03:32 109 21 100 03/12/17 03:30 101.0 109 18 121/44 97 Endotracheal Tube 100 03/12/17 03:15 100 03/12/17 02:31 103.0 121 46 111/51 92 Room Air 03/12/17 02:28 122 46 Non-Rebreather 03/12/17 01:22 61 20 137/4 99 Non-Rebreather 15.0 Intake and Output 03/11/17 03/12/17 19:00 07:00 Intake Total 2650 ml Balance 2650 ml Intake Oral 0 ml IV Total 2650 ml Laboratory Tests Test 03/12/17 01:55 03/12/17 02:23 03/12/17 04:45 03/12/17 05:20 White Blood Count 26.3 K/UL (4.8-10.8) *H Red Blood Count 3.32 M/UL (4.20-5.40) L Hemoglobin 11.4 G/DL (12.0-16.0) L Hematocrit 34.8 % (37.0-47.0) L Mean Corpuscular Volume 105 FL (80-99) H Mean Corpuscular Hemoglobin 34.4 PG (27.0-31.0) H Mean Corpuscular Hemoglobin Concent 32.8 G/DL (32.0-36.0) Red Cell Distribution Width 13.2 % (11.6-14.8) Platelet Count 224 K/UL (150-450) Mean Platelet Volume 10.1 FL (6.5-10.1) Neutrophils (%) (Auto) % (45.0-75.0) Lymphocytes (%) (Auto) % (20.0-45.0) Monocytes (%) (Auto) % (1.0-10.0) Eosinophils (%) (Auto) % (0.0-3.0) Basophils (%) (Auto) % (0.0-2.0) Differential Total Cells Counted 100 Neutrophils % (Manual) 78 % (45-75) H Lymphocytes % (Manual) 4 % (20-45) L Monocytes % (Manual) 4 % (1-10) Eosinophils % (Manual) 0 % (0-3) Basophils % (Manual) 0 % (0-2) Band Neutrophils 14 % (0-8) H Platelet Estimate Adequate Platelet Morphology Normal Red Blood Cell Morphology Normal Prothrombin Time 9.9 SEC (9.30-11.50) Prothromb Time International Ratio 0.9 (0.9-1.1) Activated Partial Thromboplast Time 19 SEC (23-33) L Sodium Level 148 mEQ/L (135-145) H Potassium Level 3.9 mEQ/L (3.4-4.9) Chloride Level 103 mEQ/L (98-107) Carbon Dioxide Level 25 mEQ/L (20-30) Anion Gap 20 (5-15) H Blood Urea Nitrogen 56 mg/dL (7-23) H Creatinine 1.6 mg/dL (0.5-0.9) H Estimat Glomerular Filtration Rate mL/min (>60) Glucose Level 463 mg/dL (74-106) H Lactic Acid Level 6.10 mmol/L (0.66-2.22) H 3.40 mmol/L (0.66-2.22) H Calcium Level 10.0 mg/dL (8.6-10.2) Total Bilirubin 0.3 mg/dL (0.0-1.2) Aspartate Amino Transf (AST/SGOT) 28 U/L (5-40) Alanine Aminotransferase (ALT/SGPT) 15 U/L (3-33) Alkaline Phosphatase 123 U/L (35-104) H Total Creatine Kinase 183 U/L (26-140) H Creatine Kinase MB < 1.5 ng/mL (< 3.8) Creatine Kinase MB Relative Index 0.8 Troponin I < 0.30 ng/mL (<=0.30) Total Protein 7.4 g/dL (6.6-8.7) Albumin 3.3 g/dL (3.5-5.2) L Globulin 4.1 g/dL Albumin/Globulin Ratio 0.8 (1.0-2.7) L Urine Color Yellow Urine Appearance Cloudy Urine pH 5 (4.5-8.0) Urine Specific [place] 1.015 (1.005-1.035) Urine Protein 3+ (NEGATIVE) H Urine Glucose (UA) 4+ (NEGATIVE) H Urine Ketones 1+ (NEGATIVE) H Urine Occult Blood 3+ (NEGATIVE) H Urine Nitrite Negative (NEGATIVE) Urine Bilirubin Negative (NEGATIVE) Urine Urobilinogen Normal MG/DL (0.0-1.0) Urine Leukocyte Esterase 1+ (NEGATIVE) H Urine RBC 2-4 /HPF (0 - 2) H Urine WBC 0-2 /HPF (0 - 2) Urine Squamous Epithelial Cells Moderate /LPF (NONE/OCC) H Urine Amorphous Sediment Many /LPF (NONE) H Urine Bacteria Moderate /HPF (NONE) H Arterial Blood pH 7.506 (7.350-7.450) Arterial Blood Partial Pressure CO2 31.2 mmHg (35.0-45.0) L Arterial Blood Partial Pressure O2 281.2 mmHg (75.0-100.0) H Arterial Blood HCO3 24.1 mmol/L (22.0-26.0) Arterial Blood Oxygen Saturation 99.3 % (92.0-98.0) H Arterial Blood Base Excess 1.2 Shaun Test Positive Height (Feet): 5 Height (Inches): 2.00 Weight (Pounds): 110 Medications Current Medications Medications (Trade) Dose Ordered Sig/Ramiro Route PRN Reason Start Time Stop Time Status Last Admin Dose Admin Acetaminophen (Tylenol) 650 mg Q4H PRN ORAL fever>100.5 03/12/17 07:30 04/11/17 07:29 Albuterol/ Ipratropium (DuoNeb 0.5-3(2.5)mg/3ml) 3 ml Q4H PRN HHN Shortness of Breath 03/12/17 07:30 03/17/17 07:29 Heparin Sodium (Porcine) (Heparin 5000 units/ml) 5,000 units EVERY 12 HOURS SUBQ 03/12/17 09:00 04/11/17 08:59 03/12/17 08:23 Meropenem/Sodium Chloride (Merrem/Sodium Chloride) 55 ml @ 110 mls/hr EVERY 12 HOURS IVPB 03/12/17 09:30 03/17/17 09:29 Morphine Sulfate (Morphine Sulfate) 4 mg Q4H PRN IVP Severe Pain (Pain Scale 7-10) 03/12/17 07:30 03/19/17 07:29 Norepinephrine Bitartrate 4 mg/ Dextrose 254 ml @ 0 mls/hr Q24H IV 03/12/17 07:30 04/11/17 07:29 Ondansetron HCl 4 mg 4 mg Q6H PRN IVP Nausea & Vomiting 03/12/17 07:30 04/11/17 07:29 Polyethylene Glycol (Miralax) 17 gm DAILYPRN PRN ORAL Constipation 03/12/17 07:30 04/11/17 07:29 Sodium Chloride (Sodium Chloride 1000ml bag) 1,000 ml @ 100 mls/hr Q10H IVLG 03/12/17 08:00 04/11/17 07:59 03/12/17 08:17 Vancomycin HCl 750 mg/Dextrose 275 ml @ 183.708 mls/hr Q24H IVPB 03/13/17 17:00 03/18/17 16:59 Assessment/Plan Problem List: (1) Respiratory failure requiring intubation ICD Codes: J96.90 - Respiratory failure, unspecified, unspecified whether with hypoxia or hypercapnia SNOMED: 882481210 (2) Severe sepsis ICD Codes: A41.9 - Sepsis, unspecified organism; R65.20 - Severe sepsis without septic shock SNOMED: 80095977 (3) Pneumonia ICD Codes: J18.9 - Pneumonia, unspecified organism SNOMED: 684534616, 20726146 Qualifiers: Qualified Codes: J18.9 - Pneumonia, unspecified organism (4) Feeding by G-tube ICD Codes: Z93.1 - Gastrostomy status SNOMED: 790305283, 606381186 (5) Advanced dementia ICD Codes: F03.90 - Unspecified dementia without behavioral disturbance SNOMED: 47255389 Respiratory: monitor respiratory rate, adjust FIO2, CXR Cardiac: continue to monitor HR/BP Infectious Disease: check cultures Gastrointestinal: continue feedings/current rate Endocrine: monitor blood sugar, check HgA1C, continue sliding scale insulin Hematologic: monitor H/H, transfuse if hgb<8.5 Neurologic: PRN Morphine, keep patient comfortable Affect: PRN ativan Prophylaxis: Protonix Notes Reviewed: termite treater helper, cardio Discussed with: nurses, consultants, caser ZAIRA ROSALES Mar 12, 2017 08:51
--- NOTE | 2017-03-12 09:10 | Infectious Diseases Prog Note ---
Assessment/Plan Assessment/Plan ID consult dictated # [id number] Subjective Allergies: Coded Allergies: LORAZEPAM (Unverified Allergy, Unknown, 03/02/17) METOCLOPRAMIDE (Unverified Allergy, Unknown, 03/02/17) QUETIAPINE (Unverified Allergy, Unknown, 03/02/17) ZOLPIDEM (Unverified Allergy, Unknown, 03/02/17) Objective Vital Signs Last 24 Hour Vital Signs Date Time Temp Pulse Resp B/P Pulse Ox O2 Delivery O2 Flow Rate FiO2 03/12/17 08:08 112/39 03/12/17 08:00 98.7 88 14 112/39 98 Endotracheal Tube 30 03/12/17 07:20 100.0 94 16 109/33 97 Endotracheal Tube 15.0 30 03/12/17 07:00 94 16 30 03/12/17 06:00 100.0 94 21 111/41 97 Endotracheal Tube 35 03/12/17 05:00 93 20 101/38 100 Endotracheal Tube 100 03/12/17 04:56 98 20 30 03/12/17 04:15 102.0 03/12/17 03:32 109 21 100 03/12/17 03:30 101.0 109 18 121/44 97 Endotracheal Tube 100 03/12/17 03:15 100 03/12/17 02:31 103.0 121 46 111/51 92 Room Air 03/12/17 02:28 122 46 Non-Rebreather 03/12/17 01:22 61 20 137/4 99 Non-Rebreather 15.0 Height (Feet): 5 Height (Inches): 2.00 Weight (Pounds): 110 Laboratory Tests Test 03/12/17 01:55 03/12/17 02:23 03/12/17 04:45 03/12/17 05:00 White Blood Count 26.3 K/UL (4.8-10.8) *H Red Blood Count 3.32 M/UL (4.20-5.40) L Hemoglobin 11.4 G/DL (12.0-16.0) L Hematocrit 34.8 % (37.0-47.0) L Mean Corpuscular Volume 105 FL (80-99) H Mean Corpuscular Hemoglobin 34.4 PG (27.0-31.0) H Mean Corpuscular Hemoglobin Concent 32.8 G/DL (32.0-36.0) Red Cell Distribution Width 13.2 % (11.6-14.8) Platelet Count 224 K/UL (150-450) Mean Platelet Volume 10.1 FL (6.5-10.1) Neutrophils (%) (Auto) % (45.0-75.0) Lymphocytes (%) (Auto) % (20.0-45.0) Monocytes (%) (Auto) % (1.0-10.0) Eosinophils (%) (Auto) % (0.0-3.0) Basophils (%) (Auto) % (0.0-2.0) Differential Total Cells Counted 100 Neutrophils % (Manual) 78 % (45-75) H Lymphocytes % (Manual) 4 % (20-45) L Monocytes % (Manual) 4 % (1-10) Eosinophils % (Manual) 0 % (0-3) Basophils % (Manual) 0 % (0-2) Band Neutrophils 14 % (0-8) H Platelet Estimate Adequate Platelet Morphology Normal Red Blood Cell Morphology Normal Prothrombin Time 9.9 SEC (9.30-11.50) Prothromb Time International Ratio 0.9 (0.9-1.1) Activated Partial Thromboplast Time 19 SEC (23-33) L Sodium Level 148 mEQ/L (135-145) H Potassium Level 3.9 mEQ/L (3.4-4.9) Chloride Level 103 mEQ/L (98-107) Carbon Dioxide Level 25 mEQ/L (20-30) Anion Gap 20 (5-15) H Blood Urea Nitrogen 56 mg/dL (7-23) H Creatinine 1.6 mg/dL (0.5-0.9) H Estimat Glomerular Filtration Rate mL/min (>60) Glucose Level 463 mg/dL (74-106) H Lactic Acid Level 6.10 mmol/L (0.66-2.22) H 3.40 mmol/L (0.66-2.22) H Calcium Level 10.0 mg/dL (8.6-10.2) Total Bilirubin 0.3 mg/dL (0.0-1.2) Aspartate Amino Transf (AST/SGOT) 28 U/L (5-40) Alanine Aminotransferase (ALT/SGPT) 15 U/L (3-33) Alkaline Phosphatase 123 U/L (35-104) H Total Creatine Kinase 183 U/L (26-140) H Creatine Kinase MB < 1.5 ng/mL (< 3.8) Creatine Kinase MB Relative Index 0.8 Troponin I < 0.30 ng/mL (<=0.30) Total Protein 7.4 g/dL (6.6-8.7) Albumin 3.3 g/dL (3.5-5.2) L Globulin 4.1 g/dL Albumin/Globulin Ratio 0.8 (1.0-2.7) L Urine Color Yellow Urine Appearance Cloudy Urine pH 5 (4.5-8.0) Urine Specific [place] 1.015 (1.005-1.035) Urine Protein 3+ (NEGATIVE) H Urine Glucose (UA) 4+ (NEGATIVE) H Urine Ketones 1+ (NEGATIVE) H Urine Occult Blood 3+ (NEGATIVE) H Urine Nitrite Negative (NEGATIVE) Urine Bilirubin Negative (NEGATIVE) Urine Urobilinogen Normal MG/DL (0.0-1.0) Urine Leukocyte Esterase 1+ (NEGATIVE) H Urine RBC 2-4 /HPF (0 - 2) H Urine WBC 0-2 /HPF (0 - 2) Urine Squamous Epithelial Cells Moderate /LPF (NONE/OCC) H Urine Amorphous Sediment Many /LPF (NONE) H Urine Bacteria Moderate /HPF (NONE) H Uric Acid Pending Test 03/12/17 05:20 Arterial Blood pH 7.506 (7.350-7.450) Arterial Blood Partial Pressure CO2 31.2 mmHg (35.0-45.0) L Arterial Blood Partial Pressure O2 281.2 mmHg (75.0-100.0) H Arterial Blood HCO3 24.1 mmol/L (22.0-26.0) Arterial Blood Oxygen Saturation 99.3 % (92.0-98.0) H Arterial Blood Base Excess 1.2 Shaun Test Positive Current Medications Medications (Trade) Dose Ordered Sig/Ramiro Route PRN Reason Start Time Stop Time Status Last Admin Dose Admin Acetaminophen (Tylenol) 650 mg Q4H PRN ORAL fever>100.5 03/12/17 07:30 04/11/17 07:29 Albuterol/ Ipratropium (DuoNeb 0.5-3(2.5)mg/3ml) 3 ml Q4H PRN HHN Shortness of Breath 03/12/17 07:30 03/17/17 07:29 Dextrose (Dextrose 50%) STAT PRN IV Hypoglycemia 03/12/17 09:00 04/11/17 08:59 UNV Heparin Sodium (Porcine) (Heparin 5000 units/ml) 5,000 units EVERY 12 HOURS SUBQ 03/12/17 09:00 04/11/17 08:59 03/12/17 08:23 Insulin Aspart (NovoLOG) EVERY 4 HOURS SUBQ 03/12/17 12:00 04/11/17 11:59 UNV Meropenem/Sodium Chloride (Merrem/Sodium Chloride) 55 ml @ 110 mls/hr EVERY 12 HOURS IVPB 03/12/17 09:30 03/17/17 09:29 Morphine Sulfate (Morphine Sulfate) 4 mg Q4H PRN IVP Severe Pain (Pain Scale 7-10) 03/12/17 07:30 03/19/17 07:29 Norepinephrine Bitartrate 4 mg/ Dextrose 254 ml @ 0 mls/hr Q24H IV 03/12/17 07:30 04/11/17 07:29 Ondansetron HCl 4 mg 4 mg Q6H PRN IVP Nausea & Vomiting 03/12/17 07:30 04/11/17 07:29 Polyethylene Glycol (Miralax) 17 gm DAILYPRN PRN ORAL Constipation 03/12/17 07:30 04/11/17 07:29 Sodium Chloride (Sodium Chloride 1000ml bag) 1,000 ml @ 100 mls/hr Q10H IVLG 03/12/17 08:00 04/11/17 07:59 03/12/17 08:17 Vancomycin HCl 750 mg/Dextrose 275 ml @ 183.708 mls/hr Q24H IVPB 03/13/17 17:00 03/18/17 16:59 LEON HINES Mar 12, 2017 09:10
--- NOTE | 2017-03-12 09:45 | Consultation ---
DATE OF CONSULTATION: 03/12/2017 INFECTIOUS DISEASE CONSULTATION This consult is for coverage of Dr. Ohara. PRIMARY ATTENDING PHYSICIAN: Umu Burton M.D. REASON FOR CONSULT: Sepsis and pneumonia. HISTORY OF PRESENT ILLNESS: This is an 81-year-old female, who is a shelter resident admitted early this morning with decreased O2 saturation and respiratory distress. Had a temperature of 103 in the ER. The patient has leukocytosis. She was intubated in the ER, transferred to ICU and empirically started on IV antibiotics. The patient was recently discharged from hospital around four days ago. She was in [facility] between 03/02/2017 and 03/08/2017 with pneumonia and sepsis. PAST MEDICAL HISTORY: Significant for dementia, had MRSA colonization, and diabetes mellitus type 2. ALLERGIES: Allergic to lorazepam, metoclopramide, Seroquel, and Ambien. MEDICATIONS: Vancomycin, ertapenem, amikacin, heparin, sodium chloride, DuoNeb inhaler, morphine, and norepinephrine. SOCIAL HISTORY: No other history is obtainable by the patient. The patient is a shelter resident. No history of alcohol, drug abuse, or smoking. PHYSICAL EXAMINATION: VITAL SIGNS: Temperature 98.7, pulse 88, and blood pressure 102/39. HEAD AND NECK: Orally intubated. LUNGS: Few rhonchi bilaterally, on mechanical ventilator. HEART: Normal rate. ABDOMEN: Soft. EXTREMITIES: Has no edema. The patient has peripheral line. Has muscle atrophy in the extremities. LABORATORY DATA: WBC 26.3, hemoglobin 11.4, hematocrit 34.8, and platelet is 224,000. Sodium 148, potassium 3.9, BUN 56, creatinine 1.6, and glucose is 463. Alkaline phosphatase of elevated 123. CK was elevated 183. Lactic acid is 6.1. Chest x-ray show significant change from previous admission. X-ray may have some interstitial infiltrates on the right side. IMPRESSION: 1. Severe sepsis with multiorgan failure. 2. The patient seems to have pneumonia. 3. Acute respiratory failure. 4. Acute renal failure. 5. Diabetes type 2 with hyperglycemia. 6. Dementia. 7. Methicillin resistant Staphylococcus aureus colonization. RECOMMENDATION: We will change antibiotic from ertapenem to meropenem. We will discontinue amikacin. We will follow up the culture. At the end of my exam, I thank Dr. Burton, for involving me in the care of this patient. Kenji Whiteside M.D. DR: ANANT JOB#: [id number] CC:
[2017-03-12] MEDS: Meropenem 500 MG in NS 55 ML IVPB SCH ×2 (09:54→21:04)
[2017-03-12] MEDS ORDERED: Amikacin 250 MG in NS 110 ML IV SCH (10:00)
[2017-03-12 10:44] LABS: APPEARANCE,URINE SLIGHTLY CLOUDY; KETONES,URINE NEGATIVE (NEGATIVE); LEUKOCYTE ESTERASE ,URINE 1+ (NEGATIVE); NITRITE,URINE NEGATIVE (NEGATIVE); PH,URINE 6 (4.5-8.0); PROTEIN,URINE 3+ (NEGATIVE); UROBILINOGEN,URINE NORMAL MG/DL (0.0-1.0)
[2017-03-12] MEDS ORDERED: Ertapenem 0.5 GM in NS 55 ML IV SCH (11:00)
[2017-03-12 11:03] LABS: BACTERIA,URINE FEW /HPF; GRANULAR CASTS,URINE 0-2 /LPF; SQUAMOUS EPITHELIAL CELL,UR FEW /LPF (NONE/OCC)
[2017-03-12] MEDS ORDERED: NovoLOG Insulin Flexpen SUBQ SCH ×2 (11:30→12:00)
--- NOTE | 2017-03-12 11:53 | Diagnostic Imaging Report ---
Indications: Shortness of breath Technique: Portable AP chest at 0341 Findings: Comparison: 0136 Endotracheal tube has been placed, tip 2 cm above pema. Pulmonary inflation has improved bilaterally. Diffuse bilateral interstitial infiltrates, patchy airspace opacities in right mid and lower lung zones persist, unchanged. Linear densities in left lung base persist, decreased. No other interval change. IMPRESSION: Endotracheal tube in good position Stable bilateral mixed interstitial and alveolar opacities most compatible with pulmonary edema. Superimposed pneumonia not excludable. Persistent left lung base subsegmental atelectasis, decreased
[2017-03-12] MEDS: NovoLOG Insulin Flexpen SUBQ SCH ×4 (11:54→23:41)
[2017-03-12] MEDS ORDERED: Succinylcholine 20mg/ml 10ml vial ONE (14:12)
--- NOTE | 2017-03-12 14:51 | Diagnostic Imaging Report ---
Indications: Elevated renal function tests Technique: Transabdominal real-time grayscale and duplex Doppler imaging of the kidneys, retroperitoneum, and urinary bladder was performed Findings: Comparison: None Right kidney measures 7.3 cm in length. Multilobulated surface contour. Diffuse cortical thinning and increased echogenicity. Suggestion of multiple circumscribed cortical hypoechoic foci.. No stones, other focal lesions, hydronephrosis, or obvious perinephric abnormalities. Left kidney measures 10.3 cm in length. Normal contour, echotexture, cortical thickness. No stones, other focal lesions, hydronephrosis, or obvious perinephric abnormalities. The intrahepatic portion of inferior vena cava is patent and normal caliber. The urinary bladder is collapsed around Patel catheter. Impression: Atrophic, echogenic right kidney raises suspicion of long-standing renal artery stenosis. Intracortical foci of decreased echogenicity likely represent medullary appearance. One or more masses not excludable. Sonographically unremarkable left kidney Patel catheter
--- NOTE | 2017-03-12 14:59 | Consultation ---
Consult Note Consult Note This is an 81-year-old female with multiple medical problem. She just discharged from the hospital for sepsis from pneumonia. She presents with decreasing oxygenation and increasing work of breathing. He her also with a fever. Onset tonight. No nausea no vomiting. Per EMS was hypoxic on 2 L. History is limited because of her condition and patient can't give a history. History is through her long term note EMS. 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
[2017-03-12 18:18] LABS: MEAN CORPUSCULAR HEMOGLOBIN 36.7 PG (27.0-31.0); MEAN CORPUSCULAR HGB CONC 36.4 G/DL (32.0-36.0); MEAN CORPUSCULAR VOLUME 101 FL (80-99); MEAN PLATELET VOLUME 10.1 FL (6.5-10.1); PLATELET COUNT 182 K/UL (150-450); RED CELL DISTRIBUTION WIDTH 12.9 % (11.6-14.8); WHITE BLOOD COUNT 21.3 K/UL (4.8-10.8)
[2017-03-12 18:24] LABS: THYROID STIMULATING HORMONE 2.81 uIU/mL (0.300-4.500)
[2017-03-12 20:12] LABS: BAND NEUTROPHILS % (MANUAL) 12 % (0-8); LYMPHOCYTES % (MANUAL) 2 % (20-45); NEUTROPHILS % (MANUAL) 80 % (45-75); TOTAL CELLS COUNTED 100
[2017-03-12 20:13] LABS: ANISOCYTOSIS 1+; BASOPHILS % (MANUAL) 0 % (0-2); EOSINOPHILS % (MANUAL) 0 % (0-3); HYPOCHROMASIA 1+; MACROCYTES 1+; PLATELET ESTIMATE ADEQUATE; PLATELET MORPHOLOGY NORMAL
[2017-03-12 20:14] LABS: PATH BLOOD SMEAR/OMC SENT TO PATHOLOGIST
[2017-03-12] MEDS ORDERED: Vancomycin 1 GM in D5W 275 ML IV SCH (23:45)
[2017-03-13] VITALS (24 sets, daily range): BP systolic 98–148; BP diastolic 34–107
[2017-03-13] MEDS: NovoLOG Insulin Flexpen SUBQ SCH ×6 (05:02→23:45)
[2017-03-13 05:43] LABS: MEAN CORPUSCULAR HEMOGLOBIN 35.6 PG (27.0-31.0); MEAN CORPUSCULAR HGB CONC 34.2 G/DL (32.0-36.0); MEAN CORPUSCULAR VOLUME 104 FL (80-99); MEAN PLATELET VOLUME 10.3 FL (6.5-10.1); PLATELET COUNT 205 K/UL (150-450); RED BLOOD COUNT 2.45 M/UL (4.20-5.40); RED CELL DISTRIBUTION WIDTH 12.8 % (11.6-14.8); WHITE BLOOD COUNT 20.9 K/UL (4.8-10.8)
[2017-03-13 06:16] LABS: MAGNESIUM 2.2 mg/dL (1.7-2.5); PHOSPHORUS 1.7 mg/dL (2.5-4.8)
[2017-03-13 06:18] LABS: ALANINE AMINOTRANSFERASE 12 U/L (3-33); ALBUMIN/GLOBULIN RATIO 0.8 (1.0-2.7); ANION GAP 10 (5-15); ASPARTATE AMINO TRANSFERASE 38 U/L (5-40); CARBON DIOXIDE 24 mEQ/L (20-30); CHLORIDE 117 mEQ/L (98-107); CREATININE 0.9 mg/dL (0.5-0.9); HEMOLYSIS 7; POTASSIUM 3.2 mEQ/L (3.4-4.9); SODIUM 151 mEQ/L (135-145); TOTAL PROTEIN 5.5 g/dL (6.6-8.7)
[2017-03-13 06:25] LABS: CHOLESTEROL/HDL RATIO 4.5 (3.3-4.4); CRP QUANT 10.5 mg/dL (< 0.5); URIC ACID 4.5 mg/dL (3.0-7.5)
--- NOTE | 2017-03-13 07:48 | Cardiology Report ---
APPROVED REPORT EXAM: Two-dimensional and M-mode echocardiogram with Doppler and color Doppler. INDICATION LV function M-Mode DIMENSIONS IVSd1.1 (0.7-1.1cm)Left Atrium (MM)3.3 (1.6-4.0cm) LVDd3.7 (3.5-5.6cm)Aortic Root2.6 (2.0-3.7cm) PWd0.8 (0.7-1.1cm)Aortic Cusp Exc.1.5 (1.5-2.0cm) LVDs2.3 (2.5-4.0cm) PWs1.6 cm Technically difficult study due to pts position. Normal left ventricular chamber size, systolic function and wall motion to extent visualized. Left ventricular ejection fraction grossly estimated to be 65 %. Study quality precludes accurate assessment of regional wall motion. Mild left ventricular hypertrophy. Anterior Echo-free space, may be due to pericardial fat or effusion. All other cardiac chamber sizes are within normal limits. Focal aortic valve sclerosis with adequate cusp excursion. Thickened mitral valve leaflets with normal excursion. Mitral annulus and aortic root calcification. Pulmonic valve not well visualized. Normal tricuspid valve structure. IVC at normal size with physiologic collapse. A color flow and spectral Doppler study was performed and revealed: Trace aortic regurgitation. Mild mitral regurgitation. Mitral inflow velocities indicates possible pseudo normalization pattern implying moderately elevated left atrial pressure (Grade II). Mild tricuspid regurgitation. Tricuspid systolic velocities suggests peak right ventricular systolic pressure of 37 mmHg, consistent with borderline mild pulmonary hypertension.
--- NOTE | 2017-03-13 07:48 | Diagnostic Imaging Report ---
Indications: Shortness of breath Technique: AP chest Findings: Comparison: 03/06/17 Diffuse bilateral interstitial infiltrates persist. Focal airspace consolidation persists in both lung bases. Superimposed linear densities in left lung base appear to have increased. Left costophrenic angle remains somewhat indistinct; right sharp. Cardiac mediastinal silhouette stable. PICC removed. IMPRESSION: Stable bibasal airspace opacities--atelectasis versus pneumonia Increase in superimposed subsegmental atelectasis left lung base Background bilateral congestive changes, unchanged
[2017-03-13 08:13] LABS: HEMOGLOBIN A1C 7.2 % (< 6.0)
[2017-03-13] MEDS: Meropenem 500 MG in NS 55 ML IVPB SCH ×2 (08:31→20:31)
[2017-03-13] MEDS: Heparin 5000 units/ml inj SUBQ SCH ×2 (08:33→20:31)
[2017-03-13] MEDS ORDERED: Tubing IV Secondary IV ONE (08:49)
[2017-03-13] MEDS ORDERED: 1/2 NS 1000ml IV ONE (08:49)
[2017-03-13 08:50] LABS: BAND NEUTROPHILS % (MANUAL) 6 % (0-8); LYMPHOCYTES % (MANUAL) 1 % (20-45); NEUTROPHILS % (MANUAL) 90 % (45-75); TOTAL CELLS COUNTED 100
[2017-03-13 08:51] LABS: BASOPHILS % (MANUAL) 0 % (0-2); EOSINOPHILS % (MANUAL) 0 % (0-3); PLATELET ESTIMATE ADEQUATE; PLATELET MORPHOLOGY NORMAL
[2017-03-13] MEDS: Famotidine 20 MG/ 2ML VIAL IVP SCH (09:37)
[2017-03-13] MEDS ORDERED: Potassium Phosphate 30 MM in NS 275 ML IV ONE (10:00)
[2017-03-13 10:01] LABS: ABG ALLEN TEST POSITIVE; ABG BASE EXCESS -0.8; ABG PCO2 29.7 mmHg (35.0-45.0)
--- NOTE | 2017-03-13 10:01 | Diagnostic Imaging Report ---
Indications: Dyspnea Technique: Portable AP chest Findings: Comparison: 03/12/17 Pulmonary inflation has decreased. Hazy airspace opacity right upper lobe has decreased. Patchy airspace opacity right lower lobe has increased. Opacity has developed in left lung base. Background bilateral interstitial prominence unchanged. No other interval change. IMPRESSION: Fluctuating airspace opacities as described--favor alveolar pulmonary edema or atelectasis over pneumonia. Latter, particularly in right lower lobe, not excludable. Background bilateral interstitial infiltrates stable
--- NOTE | 2017-03-13 10:05 | Pulmonolgy Critical Care Note ---
Critical Care - Asmt/Plan Problems: (1) Respiratory failure requiring intubation (2) Pneumonia (3) Anemia (4) Advanced dementia (5) Feeding by G-tube (6) Severe sepsis Respiratory: monitor respiratory rate, adjust FIO2, CXR Cardiac: continue pressors, continue to monitor HR/BP Renal: F/U I&O, keep IV fluid - d52 Infectious Disease: continue antibiotics Gastrointestinal: continue feedings/current rate Endocrine: monitor blood sugar, check TSH, check HgA1C, continue sliding scale insulin Hematologic: monitor H/H, transfuse if hgb<8.5 Neurologic: PRN Ativan, PRN Morphine, keep patient comfortable Affect: PRN ativan Prophylaxis: Protonix, Heparin Time Spent (Minutes): 40 Notes Reviewed: software applications designer, cardio Discussed with: nurses, consultants, dependency case manageror manager - Objective Last 24 Hour Vital Signs Date Time Temp Pulse Resp B/P (MAP) Pulse Ox O2 Delivery O2 Flow Rate FiO2 03/13/17 09:17 86 18 30 03/13/17 09:00 83 18 142/42 98 Mechanical Ventilator 30 03/13/17 08:00 30 03/13/17 08:00 98.4 87 18 133/45 97 Mechanical Ventilator 30 03/13/17 08:00 86 03/13/17 07:30 105/65 03/13/17 07:28 27 29 30 03/13/17 07:00 89 18 105/65 98 Mechanical Ventilator 30 03/13/17 06:00 90 23 109/34 95 Mechanical Ventilator 30 03/13/17 05:17 95 22 30 03/13/17 05:00 96 23 148/83 100 Mechanical Ventilator 30 03/13/17 04:00 99.1 89 18 135/41 100 Mechanical Ventilator 30 03/13/17 04:00 30 03/13/17 04:00 89 03/13/17 03:00 91 19 121/68 100 Mechanical Ventilator 30 03/13/17 02:30 84 18 30 03/13/17 02:00 89 18 119/38 99 Mechanical Ventilator 30 03/13/17 01:30 89 20 30 03/13/17 01:00 88 18 138/107 99 Mechanical Ventilator 30 03/13/17 00:00 99.2 92 18 128/95 100 Mechanical Ventilator 30 03/13/17 00:00 30 03/13/17 00:00 96 03/12/17 23:22 93 22 30 03/12/17 23:00 92 18 91/60 100 Mechanical Ventilator 30 03/12/17 22:00 71 18 126/56 100 Mechanical Ventilator 30 03/12/17 21:30 89 19 30 03/12/17 21:00 90 26 134/82 99 Mechanical Ventilator 30 03/12/17 20:00 84 03/12/17 20:00 30 03/12/17 20:00 98.6 83 18 125/40 100 Mechanical Ventilator 30 03/12/17 19:30 95 21 30 03/12/17 19:00 91 18 156/102 100 Mechanical Ventilator 30 03/12/17 18:00 88 18 155/112 100 Mechanical Ventilator 30 03/12/17 17:12 92 19 30 03/12/17 17:00 89 18 116/40 100 Mechanical Ventilator 30 03/12/17 16:00 91 03/12/17 16:00 98.6 90 18 134/120 99 Mechanical Ventilator 30 03/12/17 16:00 30 03/12/17 15:11 90 18 30 03/12/17 15:00 85 18 111/38 100 Mechanical Ventilator 30 03/12/17 14:00 91 20 143/113 100 Endotracheal Tube 30 03/12/17 13:29 101 23 30 03/12/17 13:00 80 18 122/42 100 Endotracheal Tube 30 03/12/17 12:00 80 03/12/17 12:00 98.7 82 17 110/66 100 Endotracheal Tube 30 03/12/17 12:00 30 03/12/17 11:00 83 18 114/37 100 Endotracheal Tube 30 03/12/17 10:58 84 18 30 Status: awake Condition: critical HEENT: atraumatic, normocephalic Lungs: clear Heart: HR/BP stable, HR/BP unstable Abdomen: soft, non-tender, feeding tube Extremities: no C/C/E, edema Decubiti: stage Micro: Microbiology Date/Time Source Procedure Growth Status 03/12/17 02:08 Blood Blood Culture - Preliminary NO GROWTH AFTER 24 HOURS Resulted 03/12/17 01:55 Blood Blood Culture - Preliminary NO GROWTH AFTER 24 HOURS Resulted 03/12/17 02:23 Urine,Clean Catch Urine Culture - Preliminary NO GROWTH Resulted Accucheck: 149 Critical Care - Subjective ROS Limited/Unobtainable: No ICU Day: 2 Intubation Day: 2 Condition: critical FI02: 30 Vent Support Breath Rate: 18 Vent Support Mode: AC Vent Tidal Volume: 500 Sputum Amount: Moderate PEEP: 5.0 PIP: 24 Fluids: d5w 100 cc/hour I&O: Intake and Output 03/13/17 03/14/17 19:00 07:00 Intake Total 235 ml Output Total 120 ml Balance 115 ml Free Water 30 ml IV Total 205 ml Output Urine Total 120 ml CXR: ET tube in place ET-Tube: 7.0 ET Position: 21 Labs: Laboratory Tests Test 03/12/17 16:50 03/12/17 17:30 03/13/17 04:30 03/13/17 06:05 White Blood Count 21.3 K/UL (4.8-10.8) H 20.9 K/UL (4.8-10.8) H Red Blood Count 2.40 M/UL (4.20-5.40) L 2.45 M/UL (4.20-5.40) L Hemoglobin 8.8 G/DL (12.0-16.0) L 8.7 G/DL (12.0-16.0) L Hematocrit 24.2 % (37.0-47.0) #L 25.5 % (37.0-47.0) L Mean Corpuscular Volume 101 FL (80-99) H 104 FL (80-99) H Mean Corpuscular Hemoglobin 36.7 PG (27.0-31.0) H 35.6 PG (27.0-31.0) H Mean Corpuscular Hemoglobin Concent 36.4 G/DL (32.0-36.0) H 34.2 G/DL (32.0-36.0) Red Cell Distribution Width 12.9 % (11.6-14.8) 12.8 % (11.6-14.8) Platelet Count 182 K/UL (150-450) 205 K/UL (150-450) Mean Platelet Volume 10.1 FL (6.5-10.1) 10.3 FL (6.5-10.1) H Neutrophils (%) (Auto) % (45.0-75.0) % (45.0-75.0) Lymphocytes (%) (Auto) % (20.0-45.0) % (20.0-45.0) Monocytes (%) (Auto) % (1.0-10.0) % (1.0-10.0) Eosinophils (%) (Auto) % (0.0-3.0) % (0.0-3.0) Basophils (%) (Auto) % (0.0-2.0) % (0.0-2.0) Differential Total Cells Counted 100 100 Neutrophils % (Manual) 80 % (45-75) H 90 % (45-75) H Lymphocytes % (Manual) 2 % (20-45) L 1 % (20-45) L Monocytes % (Manual) 6 % (1-10) 3 % (1-10) Eosinophils % (Manual) 0 % (0-3) 0 % (0-3) Basophils % (Manual) 0 % (0-2) 0 % (0-2) Band Neutrophils 12 % (0-8) H 6 % (0-8) Platelet Estimate Adequate Adequate Platelet Morphology Normal Normal Hypochromasia 1+ Anisocytosis 1+ Macrocytosis 1+ Haptoglobin 335 mg/dL (30-200) H Fibrinogen 501 mg/dL (200-400) H Iron Level 19 ug/dL (37-145) L Total Iron Binding Capacity 174 ug/dL (250-400) L Percent Iron Saturation 11 % (15-50) L Unsaturated Iron Binding 155 ug/dL (112-346) Ferritin 352 ng/mL (13-150) H Lactate Dehydrogenase 245 U/L (135-230) H Carcinoembryonic Antigen 7.2 ng/mL H Vitamin B12 Level 1734 pg/mL (211-946) H Folate Pending Thyroid Stimulating Hormone (TSH) 2.810 uIU/mL (0.300-4.500) HIV (1&2) Antibody Rapid Negative (NEGATIVE) Stool Occult Blood Negative (NEGATIVE) Red Blood Cell Morphology Normal Sodium Level 151 mEQ/L (135-145) H Potassium Level 3.2 mEQ/L (3.4-4.9) L Chloride Level 117 mEQ/L (98-107) H Carbon Dioxide Level 24 mEQ/L (20-30) Anion Gap 10 (5-15) Blood Urea Nitrogen 32 mg/dL (7-23) H Creatinine 0.9 mg/dL (0.5-0.9) Estimat Glomerular Filtration Rate mL/min (>60) Glucose Level 137 mg/dL (74-106) #H Hemoglobin A1c 7.2 % (< 6.0) H Uric Acid 4.5 mg/dL (3.0-7.5) Calcium Level 8.0 mg/dL (8.6-10.2) L Phosphorus Level 1.7 mg/dL (2.5-4.8) L Magnesium Level 2.2 mg/dL (1.7-2.5) Total Bilirubin 0.4 mg/dL (0.0-1.2) Aspartate Amino Transf (AST/SGOT) 38 U/L (5-40) Alanine Aminotransferase (ALT/SGPT) 12 U/L (3-33) Alkaline Phosphatase 139 U/L (35-104) H C-Reactive Protein, Quantitative 10.5 mg/dL (< 0.5) H Pro-B-Type Natriuretic Peptide 1956 pg/mL (0-450) H Total Protein 5.5 g/dL (6.6-8.7) L Albumin 2.5 g/dL (3.5-5.2) L Globulin 3.0 g/dL Albumin/Globulin Ratio 0.8 (1.0-2.7) L Triglycerides Level 218 mg/dL (< 150) H Cholesterol Level 121 mg/dL (< 200) LDL Cholesterol 50 mg/dL (60-99) L HDL Cholesterol 27 mg/dL (> 60) Cholesterol/HDL Ratio 4.5 (3.3-4.4) H Lactic Acid Level 1.20 mmol/L (0.66-2.22) Test 03/13/17 09:15 Arterial Blood pH 7.480 (7.350-7.450) Arterial Blood Partial Pressure CO2 29.7 mmHg (35.0-45.0) L Arterial Blood Partial Pressure O2 65.3 mmHg (75.0-100.0) L Arterial Blood HCO3 21.8 mmol/L (22.0-26.0) L Arterial Blood Oxygen Saturation 92.9 % (92.0-98.0) Arterial Blood Base Excess -0.8 Shaun Test Positive ZAIRA ROSALES Mar 13, 2017 10:05
--- NOTE | 2017-03-13 10:16 | Consultation ---
DATE OF CONSULTATION: 03/12/2017 HEMATOLOGY/ONCOLOGY CONSULTATION CONSULTING PHYSICIAN: Saul Luque M.D. REQUESTING PHYSICIAN: Umu Burton M.D. REASON FOR CONSULTATION: Evaluation of leukocytosis and anemia. IDENTIFICATION DATA: Dear Dr. Burton: The patient is a pleasant 81-year-old female with a past medical history significant for malnutrition, status post PEG tube, history of CVA, is bedbound, recently discharged from the hospital with history of pneumonia and sepsis approximately several days ago. Initially, she presented with shortness of breath as well as decreased O2 saturation, required intubation, transferred to the ICU for further evaluation. Hematology service was consulted given the sepsis, leukocytosis, and anemia. PAST MEDICAL HISTORY: Dementia, MRSA colonization, and type 2 diabetes mellitus. ALLERGIES: Lorazepam, Reglan, Seroquel, and Ambien. MEDICATIONS: Vancomycin, ertapenem, amikacin, heparin, sodium chloride, morphine, and norepinephrine. SOCIAL HISTORY: No alcohol, tobacco or illicit drug use. She is a jail resident. Review of Systems: Unable to obtain. The patient is intubated 01:13. PHYSICAL EXAMINATION: VITAL SIGNS: Temperature 98 degrees Fahrenheit, pulse of 82, respiratory rate 10, and blood pressure 102/39. GENERAL: The patient is in no distress. LUNGS: Decreased breath sounds. Lungs are clear to auscultation. CARDIOVASCULAR: Regular rate. No S3 or S4. ABDOMEN: Soft, nontender, and nondistended. EXTREMITIES: No clubbing or cyanosis . There is no swelling or edema. The patient has a peripheral line in place. Atrophy of the extremities is noted. LABORATORY DATA: WBC 26,000, hemoglobin 11.5, hematocrit 35, and platelets 224,000. BUN 56 and creatinine 1.6. Blood gas 6.1. ASSESSMENT: 1. Leukocytosis, possibly secondary to underlying sepsis. Continue monitoring. 2. Anemia secondary to chronic disease. 3. Anemia of macrocytosis. Closely monitor. 01:48 has been ordered. 4. Coagulopathy, potentially secondary to underlying sepsis as well. PTT is elevated. Prothrombin time is elevated. 5. Methicillin-resistant Staphylococcus aureus colonization. 6. Respiratory failure, status post intubation. 7. Acute kidney injury. The patient has been seen by nephrology service. I appreciate the consultation. Saul Luque M.D. DR: REBECCA JOB#: [id number] CC:
--- NOTE | 2017-03-13 11:39 | General Progress Note ---
Assessment/Plan Status: stable Assessment/Plan Respiratory failure requiring intubation Severe sepsis secondary to pneumonia, resolving UTI Acute cystitis without hematuria Pneumonia, non cavitary, w/o effusion Dementia Acute renal failure , Dehydration Hypoxemic respiratory failure Type 2 diabetes mellitus with hyperglycemia Proteinuria Plan: Pulm support- Hydrate- change to D5 Phos supplement Monitor renal parameters Urine studies- Avoid Nephrotoxics- Per Orders Subjective ROS Limited/Unobtainable: Yes Allergies: Coded Allergies: LORAZEPAM (Unverified Allergy, Unknown, 03/02/17) METOCLOPRAMIDE (Unverified Allergy, Unknown, 03/02/17) QUETIAPINE (Unverified Allergy, Unknown, 03/02/17) ZOLPIDEM (Unverified Allergy, Unknown, 03/02/17) Objective Last 24 Hour Vital Signs Date Time Temp Pulse Resp B/P (MAP) Pulse Ox O2 Delivery O2 Flow Rate FiO2 03/13/17 11:00 91 20 120/87 100 Mechanical Ventilator 30 03/13/17 10:55 99 28 30 03/13/17 10:00 92 18 124/44 100 Mechanical Ventilator 30 03/13/17 09:17 86 18 30 03/13/17 09:00 83 18 142/42 98 Mechanical Ventilator 30 03/13/17 08:00 30 03/13/17 08:00 98.4 87 18 133/45 97 Mechanical Ventilator 30 03/13/17 08:00 86 03/13/17 07:30 105/65 03/13/17 07:28 87 29 30 03/13/17 07:00 89 18 105/65 98 Mechanical Ventilator 30 03/13/17 06:00 90 23 109/34 95 Mechanical Ventilator 30 03/13/17 05:17 95 22 30 03/13/17 05:00 96 23 148/83 100 Mechanical Ventilator 30 03/13/17 04:00 99.1 89 18 135/41 100 Mechanical Ventilator 30 03/13/17 04:00 30 03/13/17 04:00 89 03/13/17 03:00 91 19 121/68 100 Mechanical Ventilator 30 03/13/17 02:30 84 18 30 03/13/17 02:00 89 18 119/38 99 Mechanical Ventilator 30 03/13/17 01:30 89 20 30 03/13/17 01:00 88 18 138/107 99 Mechanical Ventilator 30 03/13/17 00:00 99.2 92 18 128/95 100 Mechanical Ventilator 30 03/13/17 00:00 30 03/13/17 00:00 96 03/12/17 23:22 93 22 30 03/12/17 23:00 92 18 91/60 100 Mechanical Ventilator 30 03/12/17 22:00 71 18 126/56 100 Mechanical Ventilator 30 03/12/17 21:30 89 19 30 03/12/17 21:00 90 26 134/82 99 Mechanical Ventilator 30 03/12/17 20:00 84 03/12/17 20:00 30 03/12/17 20:00 98.6 83 18 125/40 100 Mechanical Ventilator 30 03/12/17 19:30 95 21 30 03/12/17 19:00 91 18 156/102 100 Mechanical Ventilator 30 03/12/17 18:00 88 18 155/112 100 Mechanical Ventilator 30 03/12/17 17:12 92 19 30 03/12/17 17:00 89 18 116/40 100 Mechanical Ventilator 30 03/12/17 16:00 91 03/12/17 16:00 98.6 90 18 134/120 99 Mechanical Ventilator 30 03/12/17 16:00 30 03/12/17 15:11 90 18 30 03/12/17 15:00 85 18 111/38 100 Mechanical Ventilator 30 03/12/17 14:00 91 20 143/113 100 Endotracheal Tube 30 03/12/17 13:29 101 23 30 03/12/17 13:00 80 18 122/42 100 Endotracheal Tube 30 03/12/17 12:00 80 03/12/17 12:00 98.7 82 17 110/66 100 Endotracheal Tube 30 03/12/17 12:00 30 Intake and Output 03/13/17 03/14/17 19:00 07:00 Intake Total 382.5 ml Output Total 170 ml Balance 212.5 ml Free Water 30 ml IV Total 352.5 ml Output Urine Total 170 ml Laboratory Tests 03/12/17 16:50: White Blood Count 21.3H, Red Blood Count 2.40L, Hemoglobin 8.8L, Hematocrit 24.2 #L, Mean Corpuscular Volume 101H, Mean Corpuscular Hemoglobin 36.7H, Mean Corpuscular Hemoglobin Concent 36.4H, Red Cell Distribution Width 12.9, Platelet Count 182, Mean Platelet Volume 10.1, Neutrophils (%) (Auto) , Lymphocytes (%) (Auto) , Monocytes (%) (Auto) , Eosinophils (%) (Auto) , Basophils (%) (Auto) , Differential Total Cells Counted 100, Neutrophils % ( Manual) 80H, Lymphocytes % (Manual) 2L, Monocytes % (Manual) 6, Eosinophils % ( Manual) 0, Basophils % (Manual) 0, Band Neutrophils 12H, Platelet Estimate Adequate, Platelet Morphology Normal, Hypochromasia 1+, Anisocytosis 1+, Macrocytosis 1+, Haptoglobin 335H, Fibrinogen 501H, Iron Level 19L, Total Iron Binding Capacity 174L, Percent Iron Saturation 11L, Unsaturated Iron Binding 155 , Ferritin 352H, Lactate Dehydrogenase 245H, Carcinoembryonic Antigen 7.2H, Vitamin B12 Level 1734H, Folate [Pending], Thyroid Stimulating Hormone (TSH) 2.810, HIV (1&2) Antibody Rapid Negative 03/12/17 17:30: Stool Occult Blood Negative 03/13/17 04:30: White Blood Count 20.9H, Red Blood Count 2.45L, Hemoglobin 8.7L, Hematocrit 25.5L, Mean Corpuscular Volume 104H, Mean Corpuscular Hemoglobin 35.6H, Mean Corpuscular Hemoglobin Concent 34.2, Red Cell Distribution Width 12.8, Platelet Count 205, Mean Platelet Volume 10.3H, Neutrophils (%) (Auto) , Lymphocytes (%) (Auto) , Monocytes (%) (Auto) , Eosinophils (%) (Auto) , Basophils (%) (Auto) , Differential Total Cells Counted 100, Neutrophils % (Manual) 90H, Lymphocytes % (Manual) 1L, Monocytes % (Manual) 3, Eosinophils % (Manual) 0, Basophils % ( Manual) 0, Band Neutrophils 6, Platelet Estimate Adequate, Platelet Morphology Normal, Red Blood Cell Morphology Normal, Sodium Level 151H, Potassium Level 3.2L, Chloride Level 117H, Carbon Dioxide Level 24, Anion Gap 10, Blood Urea Nitrogen 32H, Creatinine 0.9, Estimat Glomerular Filtration Rate , Glucose Level 137#H, Hemoglobin A1c 7.2H, Uric Acid 4.5, Calcium Level 8.0L, Phosphorus Level 1.7L, Magnesium Level 2.2, Total Bilirubin 0.4, Aspartate Amino Transf ( AST/SGOT) 38, Alanine Aminotransferase (ALT/SGPT) 12, Alkaline Phosphatase 139H , C-Reactive Protein, Quantitative 10.5H, Pro-B-Type Natriuretic Peptide 1956H, Total Protein 5.5L, Albumin 2.5L, Globulin 3.0, Albumin/Globulin Ratio 0.8L, Triglycerides Level 218H, Cholesterol Level 121, LDL Cholesterol 50L, HDL Cholesterol 27, Cholesterol/HDL Ratio 4.5H 03/13/17 06:05: Lactic Acid Level 1.20 03/13/17 09:15: Arterial Blood pH 7.480H, Arterial Blood Partial Pressure CO2 29.7L, Arterial Blood Partial Pressure O2 65.3L, Arterial Blood HCO3 21.8L, Arterial Blood Oxygen Saturation 92.9, Arterial Blood Base Excess -0.8, Shaun Test Positive Height (Feet): 5 Height (Inches): 2.00 Weight (Pounds): 121 General Appearance: no apparent distress EENT: other - on vent Cardiovascular: tachycardia Respiratory/Chest: decreased breath sounds Abdomen: distended IRWIN DAMON Mar 13, 2017 11:39
--- NOTE | 2017-03-13 14:39 | Infectious Diseases Prog Note ---
Assessment/Plan Assessment/Plan IMPRESSION: persistent leukocytosis, but improved hemodynamics and resolution of lactic acidosis 1. Severe sepsis with multiorgan failure, improving IV vancomycin and meropenem, D#2 s/p recent admission for hypoxemic resp failure and pneumonia, treated with D#7 IV vanc/cefepime completed on [id number] 2. Probable pneumonia 3. Acute respiratory failure. 4. Acute renal failure. 5. Diabetes type 2 with hyperglycemia. 6. Dementia. 7. Methicillin resistant Staphylococcus aureus colonization. 8. r/o urosepsis 9. lactic acidosis, resovled RECOMMENDATION: --continue empiric IV vancomycin and meropenem, D#2 --monitor blood cx --monitor urine cx --monitor sputum cx --monitor CBC --monitor temp curve Subjective Allergies: Coded Allergies: LORAZEPAM (Unverified Allergy, Unknown, 03/02/17) METOCLOPRAMIDE (Unverified Allergy, Unknown, 03/02/17) QUETIAPINE (Unverified Allergy, Unknown, 03/02/17) ZOLPIDEM (Unverified Allergy, Unknown, 03/02/17) Objective Vital Signs Last 24 Hour Vital Signs Date Time Temp Pulse Resp B/P (MAP) Pulse Ox O2 Delivery O2 Flow Rate FiO2 03/13/17 14:00 71 20 111/35 100 Mechanical Ventilator 30 03/13/17 13:00 87 19 121/55 100 Mechanical Ventilator 30 03/13/17 12:34 74 18 30 03/13/17 12:00 30 03/13/17 12:00 86 03/13/17 12:00 98.9 81 18 137/42 100 Mechanical Ventilator 30 03/13/17 11:00 91 20 120/87 100 Mechanical Ventilator 30 03/13/17 10:55 99 28 30 03/13/17 10:00 92 18 124/44 100 Mechanical Ventilator 30 03/13/17 09:17 86 18 30 03/13/17 09:00 83 18 142/42 98 Mechanical Ventilator 30 03/13/17 08:00 30 03/13/17 08:00 98.4 87 18 133/45 97 Mechanical Ventilator 30 03/13/17 08:00 86 03/13/17 07:30 105/65 03/13/17 07:28 87 29 30 03/13/17 07:00 89 18 105/65 98 Mechanical Ventilator 30 03/13/17 06:00 90 23 109/34 95 Mechanical Ventilator 30 03/13/17 05:17 95 22 30 03/13/17 05:00 96 23 148/83 100 Mechanical Ventilator 30 03/13/17 04:00 99.1 89 18 135/41 100 Mechanical Ventilator 30 03/13/17 04:00 30 03/13/17 04:00 89 03/13/17 03:00 91 19 121/68 100 Mechanical Ventilator 30 03/13/17 02:30 84 18 30 03/13/17 02:00 89 18 119/38 99 Mechanical Ventilator 30 03/13/17 01:30 89 20 30 03/13/17 01:00 88 18 138/107 99 Mechanical Ventilator 30 03/13/17 00:00 99.2 92 18 128/95 100 Mechanical Ventilator 30 03/13/17 00:00 30 03/13/17 00:00 96 03/12/17 23:22 93 22 30 03/12/17 23:00 92 18 91/60 100 Mechanical Ventilator 30 03/12/17 22:00 71 18 126/56 100 Mechanical Ventilator 30 03/12/17 21:30 89 19 30 03/12/17 21:00 90 26 134/82 99 Mechanical Ventilator 30 03/12/17 20:00 84 03/12/17 20:00 30 03/12/17 20:00 98.6 83 18 125/40 100 Mechanical Ventilator 30 03/12/17 19:30 95 21 30 03/12/17 19:00 91 18 156/102 100 Mechanical Ventilator 30 03/12/17 18:00 88 18 155/112 100 Mechanical Ventilator 03/12/17 17:12 92 19 30 03/12/17 17:00 89 18 116/40 100 Mechanical Ventilator 30 03/12/17 16:00 91 03/12/17 16:00 98.6 90 18 134/120 99 Mechanical Ventilator 30 03/12/17 16:00 30 03/12/17 15:11 90 18 30 03/12/17 15:00 85 18 111/38 100 Mechanical Ventilator 30 Height (Feet): 5 Height (Inches): 2.00 Weight (Pounds): 121 Objective gen: intubated, not currently sedated, opens eyes, fighting vent a bit heent: oral mucosa dry, sclera anicteric cv: rrr lungs: coarse rhonchi abd: G tube in place, soft, nttp ext: trace ble. R femoral TLC CVC. bue contractures, mild. gu: wayne in place skin: no rash, no petechiae. Microbiology Date/Time Source Procedure Growth Status 03/12/17 02:08 Blood Blood Culture - Preliminary NO GROWTH AFTER 24 HOURS Resulted 03/12/17 01:55 Blood Blood Culture - Preliminary NO GROWTH AFTER 24 HOURS Resulted 03/12/17 17:00 Sputum Gram Stain - Final Resulted 03/12/17 17:00 Sputum Sputum Culture Pending Resulted 03/12/17 02:23 Urine,Clean Catch Urine Culture - Preliminary NO GROWTH Resulted Laboratory Tests Test 03/12/17 16:50 03/12/17 17:30 03/13/17 04:30 03/13/17 06:05 White Blood Count 21.3 K/UL (4.8-10.8) H 20.9 K/UL (4.8-10.8) H Red Blood Count 2.40 M/UL (4.20-5.40) L 2.45 M/UL (4.20-5.40) L Hemoglobin 8.8 G/DL (12.0-16.0) L 8.7 G/DL (12.0-16.0) L Hematocrit 24.2 % (37.0-47.0) #L 25.5 % (37.0-47.0) L Mean Corpuscular Volume 101 FL (80-99) H 104 FL (80-99) H Mean Corpuscular Hemoglobin 36.7 PG (27.0-31.0) H 35.6 PG (27.0-31.0) H Mean Corpuscular Hemoglobin Concent 36.4 G/DL (32.0-36.0) H 34.2 G/DL (32.0-36.0) Red Cell Distribution Width 12.9 % (11.6-14.8) 12.8 % (11.6-14.8) Platelet Count 182 K/UL (150-450) 205 K/UL (150-450) Mean Platelet Volume 10.1 FL (6.5-10.1) 10.3 FL (6.5-10.1) H Neutrophils (%) (Auto) % (45.0-75.0) % (45.0-75.0) Lymphocytes (%) (Auto) % (20.0-45.0) % (20.0-45.0) Monocytes (%) (Auto) % (1.0-10.0) % (1.0-10.0) Eosinophils (%) (Auto) % (0.0-3.0) % (0.0-3.0) Basophils (%) (Auto) % (0.0-2.0) % (0.0-2.0) Differential Total Cells Counted 100 100 Neutrophils % (Manual) 80 % (45-75) H 90 % (45-75) H Lymphocytes % (Manual) 2 % (20-45) L 1 % (20-45) L Monocytes % (Manual) 6 % (1-10) 3 % (1-10) Eosinophils % (Manual) 0 % (0-3) 0 % (0-3) Basophils % (Manual) 0 % (0-2) 0 % (0-2) Band Neutrophils 12 % (0-8) H 6 % (0-8) Platelet Estimate Adequate Adequate Platelet Morphology Normal Normal Hypochromasia 1+ Anisocytosis 1+ Macrocytosis 1+ Haptoglobin 335 mg/dL (30-200) H Fibrinogen 501 mg/dL (200-400) H Iron Level 19 ug/dL (37-145) L Total Iron Binding Capacity 174 ug/dL (250-400) L Percent Iron Saturation 11 % (15-50) L Unsaturated Iron Binding 155 ug/dL (112-346) Ferritin 352 ng/mL (13-150) H Lactate Dehydrogenase 245 U/L (135-230) H Carcinoembryonic Antigen 7.2 ng/mL H Vitamin B12 Level 1734 pg/mL (211-946) H Folate Pending Thyroid Stimulating Hormone (TSH) 2.810 uIU/mL (0.300-4.500) HIV (1&2) Antibody Rapid Negative (NEGATIVE) Stool Occult Blood Negative (NEGATIVE) Red Blood Cell Morphology Normal Sodium Level 151 mEQ/L (135-145) H Potassium Level 3.2 mEQ/L (3.4-4.9) L Chloride Level 117 mEQ/L (98-107) H Carbon Dioxide Level 24 mEQ/L (20-30) Anion Gap 10 (5-15) Blood Urea Nitrogen 32 mg/dL (7-23) H Creatinine 0.9 mg/dL (0.5-0.9) Estimat Glomerular Filtration Rate mL/min (>60) Glucose Level 137 mg/dL (74-106) #H Hemoglobin A1c 7.2 % (< 6.0) H Uric Acid 4.5 mg/dL (3.0-7.5) Calcium Level 8.0 mg/dL (8.6-10.2) L Phosphorus Level 1.7 mg/dL (2.5-4.8) L Magnesium Level 2.2 mg/dL (1.7-2.5) Total Bilirubin 0.4 mg/dL (0.0-1.2) Aspartate Amino Transf (AST/SGOT) 38 U/L (5-40) Alanine Aminotransferase (ALT/SGPT) 12 U/L (3-33) Alkaline Phosphatase 139 U/L (35-104) H C-Reactive Protein, Quantitative 10.5 mg/dL (< 0.5) H Pro-B-Type Natriuretic Peptide 1956 pg/mL (0-450) H Total Protein 5.5 g/dL (6.6-8.7) L Albumin 2.5 g/dL (3.5-5.2) L Globulin 3.0 g/dL Albumin/Globulin Ratio 0.8 (1.0-2.7) L Triglycerides Level 218 mg/dL (< 150) H Cholesterol Level 121 mg/dL (< 200) LDL Cholesterol 50 mg/dL (60-99) L HDL Cholesterol 27 mg/dL (> 60) Cholesterol/HDL Ratio 4.5 (3.3-4.4) H Lactic Acid Level 1.20 mmol/L (0.66-2.22) Test 03/13/17 09:15 Arterial Blood pH 7.480 (7.350-7.450) Arterial Blood Partial Pressure CO2 29.7 mmHg (35.0-45.0) L Arterial Blood Partial Pressure O2 65.3 mmHg (75.0-100.0) L Arterial Blood HCO3 21.8 mmol/L (22.0-26.0) L Arterial Blood Oxygen Saturation 92.9 % (92.0-98.0) Arterial Blood Base Excess -0.8 Shaun Test Positive Patient : RACQUEL KELLER Referring Physician: ZAIRA ROSALES ID Number: [id number] Service Date: 03/13/17 : 1935 Report Date: 03/13/17 Gender: F Accession No.: [id number] Location: ICU Procedure: XRAY Chest 1v Indications: Dyspnea Technique: Portable AP chest Findings: Comparison: 03/12/17 Pulmonary inflation has decreased. Hazy airspace opacity right upper lobe has decreased. Patchy airspace opacity right lower lobe has increased. Opacity has developed in left lung base. Background bilateral interstitial prominence unchanged. No other interval change. IMPRESSION: Fluctuating airspace opacities as described--favor alveolar pulmonary edema or atelectasis over pneumonia. Latter, particularly in right lower lobe, not excludable. Background bilateral interstitial infiltrates stable Patient : RACQUEL KELLER Referring Physician: ZAIRA ROSALES ID Number: [id number] Service Date: 03/12/17 : 1935 Report Date: 03/12/17 Gender: F Accession No.: [id number] Location: ICU Procedure: US Renal Indications: Elevated renal function tests Technique: Transabdominal real-time grayscale and duplex Doppler imaging of the kidneys, retroperitoneum, and urinary bladder was performed Findings: Comparison: None Right kidney measures 7.3 cm in length. Multilobulated surface contour. Diffuse cortical thinning and increased echogenicity. Suggestion of multiple circumscribed cortical hypoechoic foci.. No stones, other focal lesions, hydronephrosis, or obvious perinephric abnormalities. Left kidney measures 10.3 cm in length. Normal contour, echotexture, cortical thickness. No stones, other focal lesions, hydronephrosis, or obvious perinephric abnormalities. The intrahepatic portion of inferior vena cava is patent and normal caliber. The urinary bladder is collapsed around Wayne catheter. Impression: Atrophic, echogenic right kidney raises suspicion of long-standing renal artery stenosis. Intracortical foci of decreased echogenicity likely represent medullary appearance. One or more masses not excludable. Sonographically unremarkable left kidney Wayne catheter Current Medications Medications (Trade) Dose Ordered Sig/Ramiro Route PRN Reason Start Time Stop Time Status Last Admin Dose Admin Acetaminophen (Tylenol) 650 mg Q4H PRN ORAL fever>100.5 03/12/17 07:30 04/11/17 07:29 Albuterol/ Ipratropium (DuoNeb 0.5-3(2.5)mg/3ml) 3 ml Q4H PRN HHN Shortness of Breath 03/12/17 07:30 03/17/17 07:29 Chlorhexidine Gluconate (Halie-Hex 2%) 1 applic BIOTEC TOPIC 03/13/17 21:00 04/12/17 20:59 Dextrose 1,000 ml @ 100 mls/hr Q10H IV 03/13/17 09:15 04/12/17 09:14 03/13/17 09:37 Dextrose (Dextrose 50%) STAT PRN IV Hypoglycemia 03/12/17 10:00 04/11/17 09:59 Famotidine (Pepcid I.v.) 20 mg DAILY IVP 03/13/17 10:00 04/12/17 09:59 03/13/17 09:37 Heparin Sodium (Porcine) (Heparin 5000 units/ml) 5,000 units EVERY 12 HOURS SUBQ 03/12/17 09:00 04/11/17 08:59 03/13/17 08:33 Insulin Aspart (NovoLOG) Q4H SUBQ 03/12/17 12:00 04/11/17 11:59 03/13/17 11:42 Meropenem 500 mg/ Sodium Chloride 55 ml @ 110 mls/hr EVERY 12 HOURS IVPB 03/12/17 09:30 03/17/17 09:29 03/13/17 08:31 Morphine Sulfate (Morphine Sulfate) 4 mg Q4H PRN IVP Severe Pain (Pain Scale 7-10) 03/12/17 07:30 03/19/17 07:29 Norepinephrine Bitartrate 4 mg/ Dextrose 254 ml @ 0 mls/hr Q24H IV 03/12/17 07:30 04/11/17 07:29 Ondansetron HCl (Zofran) 4 mg Q6H PRN IVP Nausea & Vomiting 03/12/17 07:30 04/11/17 07:29 Polyethylene Glycol (Miralax) 17 gm DAILYPRN PRN ORAL Constipation 03/12/17 07:30 04/11/17 07:29 Potassium Phosphate 30 mm/ Sodium Chloride 285 ml @ 47.5 mls/hr ONCE ONCE IV 03/13/17 10:00 03/13/17 15:59 03/13/17 10:13 Vancomycin HCl (Vanco rx to dose) 1 ea DAILY PRN MISC PER RX PROTOCOL 03/13/17 11:30 04/12/17 11:29 Vancomycin/Sodium Chloride 250 ml @ 166.667 mls/hr Q24H IVPB 03/13/17 17:00 03/18/17 16:59 Paul Amaya M.D. Mar 13, 2017 14:39
[2017-03-13] MEDS: Vancomycin 750mg/NS 250ml IVPB SCH (16:19)
[2017-03-13] MEDS ORDERED: Vancomycin 750mg/D5W 275ml IVPB SCH ×2 (17:00)
--- NOTE | 2017-03-13 18:08 | General Progress Note ---
Assessment/Plan Assessment/Plan 1. Leukocytosis, secondary to underlying sepsis. Continue monitoring. --> improving --> on abx per id service 2. Anemia secondary to chronic disease. Ferritin is elevated, TIBC is low. --> transfuse if hgb is less than 8 --> monitor counts 4. Coagulopathy, potentially secondary to underlying sepsis as well. PTT is elevated. Prothrombin time is elevated. 5. Methicillin-resistant Staphylococcus aureus colonization. 6. Respiratory failure, status post intubation. 7. Acute kidney injury. The patient has been seen by nephrology service. Subjective Constitutional: Reports: no symptoms HEENT: Reports: no symptoms Cardiovascular: Reports: no symptoms Respiratory: Reports: no symptoms Gastrointestinal/Abdominal: Reports: no symptoms Genitourinary: Reports: no symptoms Neurologic/Psychiatric: Reports: no symptoms Endocrine: Reports: no symptoms Hematologic/Lymphatic: Reports: no symptoms Allergies: Coded Allergies: LORAZEPAM (Unverified Allergy, Unknown, 03/02/17) METOCLOPRAMIDE (Unverified Allergy, Unknown, 03/02/17) QUETIAPINE (Unverified Allergy, Unknown, 03/02/17) ZOLPIDEM (Unverified Allergy, Unknown, 03/02/17) Subjective on a vent Objective Last 24 Hour Vital Signs Date Time Temp Pulse Resp B/P (MAP) Pulse Ox O2 Delivery O2 Flow Rate FiO2 03/13/17 17:00 85 19 129/105 100 Mechanical Ventilator 30 03/13/17 16:58 90 24 30 03/13/17 16:00 30 03/13/17 16:00 84 03/13/17 16:00 99.2 83 22 131/103 100 Mechanical Ventilator 30 03/13/17 15:09 90 29 30 03/13/17 15:00 83 20 131/77 100 Mechanical Ventilator 30 03/13/17 14:00 71 20 111/35 100 Mechanical Ventilator 30 03/13/17 13:00 87 19 121/55 100 Mechanical Ventilator 30 03/13/17 12:34 74 18 30 03/13/17 12:00 30 03/13/17 12:00 86 03/13/17 12:00 98.9 81 18 137/42 100 Mechanical Ventilator 30 03/13/17 11:00 91 20 120/87 100 Mechanical Ventilator 30 03/13/17 10:55 99 28 30 03/13/17 10:00 92 18 124/44 100 Mechanical Ventilator 30 03/13/17 09:17 86 18 30 03/13/17 09:00 83 18 142/42 98 Mechanical Ventilator 30 03/13/17 08:00 30 03/13/17 08:00 98.4 87 18 133/45 97 Mechanical Ventilator 30 03/13/17 08:00 86 03/13/17 07:30 105/65 03/13/17 07:28 87 29 30 03/13/17 07:00 89 18 105/65 98 Mechanical Ventilator 30 03/13/17 06:00 90 23 109/34 95 Mechanical Ventilator 30 03/13/17 05:17 95 22 30 03/13/17 05:00 96 23 148/83 100 Mechanical Ventilator 30 03/13/17 04:00 99.1 89 18 135/41 100 Mechanical Ventilator 30 03/13/17 04:00 30 03/13/17 04:00 89 03/13/17 03:00 91 19 121/68 100 Mechanical Ventilator 30 03/13/17 02:30 84 18 30 03/13/17 02:00 89 18 119/38 99 Mechanical Ventilator 30 03/13/17 01:30 89 20 30 03/13/17 01:00 88 18 138/107 99 Mechanical Ventilator 30 03/13/17 00:00 99.2 92 18 128/95 100 Mechanical Ventilator 30 03/13/17 00:00 30 03/13/17 00:00 96 03/12/17 23:22 93 22 30 03/12/17 23:00 92 18 91/60 100 Mechanical Ventilator 30 03/12/17 22:00 71 18 126/56 100 Mechanical Ventilator 30 03/12/17 21:30 89 19 30 03/12/17 21:00 90 26 134/82 99 Mechanical Ventilator 30 03/12/17 20:00 84 03/12/17 20:00 30 03/12/17 20:00 98.6 83 18 125/40 100 Mechanical Ventilator 30 03/12/17 19:30 95 21 30 03/12/17 19:00 91 18 156/102 100 Mechanical Ventilator 30 Intake and Output 03/13/17 03/14/17 19:00 07:00 Intake Total 1230.0 ml Output Total 525 ml Balance 705.0 ml Free Water 60 ml IV Total 1095.0 ml Tube Feeding 75 ml Output Urine Total 525 ml # Bowel Movements 1 Laboratory Tests 03/13/17 04:30: White Blood Count 20.9H, Red Blood Count 2.45L, Hemoglobin 8.7L, Hematocrit 25.5L, Mean Corpuscular Volume 104H, Mean Corpuscular Hemoglobin 35.6H, Mean Corpuscular Hemoglobin Concent 34.2, Red Cell Distribution Width 12.8, Platelet Count 205, Mean Platelet Volume 10.3H, Neutrophils (%) (Auto) , Lymphocytes (%) (Auto) , Monocytes (%) (Auto) , Eosinophils (%) (Auto) , Basophils (%) (Auto) , Differential Total Cells Counted 100, Neutrophils % (Manual) 90H, Lymphocytes % (Manual) 1L, Monocytes % (Manual) 3, Eosinophils % (Manual) 0, Basophils % ( Manual) 0, Band Neutrophils 6, Platelet Estimate Adequate, Platelet Morphology Normal, Red Blood Cell Morphology Normal, Sodium Level 151H, Potassium Level 3.2L, Chloride Level 117H, Carbon Dioxide Level 24, Anion Gap 10, Blood Urea Nitrogen 32H, Creatinine 0.9, Estimat Glomerular Filtration Rate , Glucose Level 137#H, Hemoglobin A1c 7.2H, Uric Acid 4.5, Calcium Level 8.0L, Phosphorus Level 1.7L, Magnesium Level 2.2, Total Bilirubin 0.4, Aspartate Amino Transf ( AST/SGOT) 38, Alanine Aminotransferase (ALT/SGPT) 12, Alkaline Phosphatase 139H , C-Reactive Protein, Quantitative 10.5H, Pro-B-Type Natriuretic Peptide 1956H, Total Protein 5.5L, Albumin 2.5L, Globulin 3.0, Albumin/Globulin Ratio 0.8L, Triglycerides Level 218H, Cholesterol Level 121, LDL Cholesterol 50L, HDL Cholesterol 27, Cholesterol/HDL Ratio 4.5H 03/13/17 06:05: Lactic Acid Level 1.20 03/13/17 09:15: Arterial Blood pH 7.480H, Arterial Blood Partial Pressure CO2 29.7L, Arterial Blood Partial Pressure O2 65.3L, Arterial Blood HCO3 21.8L, Arterial Blood Oxygen Saturation 92.9, Arterial Blood Base Excess -0.8, Shaun Test Positive Height (Feet): 5 Height (Inches): 2.00 Weight (Pounds): 121 General Appearance: no apparent distress EENT: PERRL/EOMI Edema: mild edema Skin: warm/dry Saul Luque Mar 13, 2017 18:08
[2017-03-13] MEDS: Dyna-Hex 2% Top Sol 8oz TOPIC SCH (20:31)
[2017-03-14] VITALS (24 sets, daily range): BP systolic 87–149; BP diastolic 37–99
[2017-03-14] MEDS: NovoLOG Insulin Flexpen SUBQ SCH ×6 (03:35→23:25)
[2017-03-14 05:54] LABS: MEAN CORPUSCULAR HEMOGLOBIN 34.2 PG (27.0-31.0); MEAN CORPUSCULAR HGB CONC 33.2 G/DL (32.0-36.0); MEAN CORPUSCULAR VOLUME 103 FL (80-99); MEAN PLATELET VOLUME 10.6 FL (6.5-10.1); PLATELET COUNT 227 K/UL (150-450); RED BLOOD COUNT 2.51 M/UL (4.20-5.40); RED CELL DISTRIBUTION WIDTH 12.9 % (11.6-14.8); WHITE BLOOD COUNT 12.6 K/UL (4.8-10.8)
[2017-03-14 07:13] LABS: ALANINE AMINOTRANSFERASE 15 U/L (3-33); ALBUMIN/GLOBULIN RATIO 0.6 (1.0-2.7); ANION GAP 13 (5-15); ASPARTATE AMINO TRANSFERASE 42 U/L (5-40); CALCIUM 7.9 mg/dL (8.6-10.2); CARBON DIOXIDE 21 mEQ/L (20-30); CHLORIDE 109 mEQ/L (98-107); CREATININE 0.8 mg/dL (0.5-0.9); HEMOLYSIS 2; MAGNESIUM 2.1 mg/dL (1.7-2.5); PHOSPHORUS 1.8 mg/dL (2.5-4.8); POTASSIUM 2.9 mEQ/L (3.4-4.9); SODIUM 143 mEQ/L (135-145); TOTAL PROTEIN 5.7 g/dL (6.6-8.7)
[2017-03-14 08:11] LABS: ABG BASE EXCESS 0.9
[2017-03-14 08:12] LABS: ABG ALLEN TEST POSITIVE
[2017-03-14] MEDS: Heparin 5000 units/ml inj SUBQ SCH ×2 (08:31→20:19)
[2017-03-14] MEDS: Famotidine 20 MG/ 2ML VIAL IVP SCH (08:32)
[2017-03-14] MEDS: Meropenem 500 MG in NS 55 ML IVPB SCH (08:33)
--- NOTE | 2017-03-14 10:56 | Pulmonolgy Critical Care Note ---
Critical Care - Asmt/Plan Problems: (1) Respiratory failure requiring intubation (2) Pneumonia (3) Anemia (4) Advanced dementia (5) Feeding by G-tube (6) Severe sepsis Respiratory: monitor respiratory rate, adjust FIO2, CXR Cardiac: continue pressors Renal: F/U I&O, keep IV fluid, other - decreast to 50 Infectious Disease: check cultures, continue antibiotics, other - wbc decreasing Gastrointestinal: continue feedings/current rate Endocrine: monitor blood sugar, check TSH, continue sliding scale insulin Hematologic: monitor H/H, transfuse if hgb<8.5 Neurologic: keep patient comfortable Affect: PRN ativan Prophylaxis: Protonix, Heparin Time Spent (Minutes): 40 Notes Reviewed: circus rider, cardio, renal Discussed with: nurses, consultants, 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 - Objective Last 24 Hour Vital Signs Date Time Temp Pulse Resp B/P (MAP) Pulse Ox O2 Delivery O2 Flow Rate FiO2 03/14/17 10:00 84 22 133/99 99 Mechanical Ventilator 30 03/14/17 09:16 93 29 30 03/14/17 09:00 89 25 141/71 100 Mechanical Ventilator 30 03/14/17 08:00 80 03/14/17 08:00 30 03/14/17 08:00 99.2 82 20 135/42 100 Mechanical Ventilator 30 03/14/17 07:30 124/52 03/14/17 07:00 91 21 124/52 100 Mechanical Ventilator 30 03/14/17 06:52 78 19 30 03/14/17 06:00 84 21 126/42 100 Mechanical Ventilator 30 03/14/17 05:08 83 25 30 03/14/17 05:00 81 20 107/77 100 Mechanical Ventilator 30 03/14/17 04:00 30 03/14/17 04:00 87 03/14/17 04:00 98.3 86 17 141/48 100 Mechanical Ventilator 30 03/14/17 03:28 85 25 30 03/14/17 03:00 79 20 109/37 99 Mechanical Ventilator 30 03/14/17 02:00 79 20 101/84 100 Mechanical Ventilator 30 03/14/17 01:00 76 19 107/42 100 Mechanical Ventilator 30 03/14/17 00:52 91 27 30 03/14/17 00:00 30 03/14/17 00:00 98.3 82 17 87/67 100 Mechanical Ventilator 30 03/14/17 00:00 86 03/13/17 23:15 80 21 30 03/13/17 23:00 80 19 107/50 100 Mechanical Ventilator 30 03/13/17 22:00 98.3 77 17 127/81 100 Mechanical Ventilator 30 03/13/17 21:18 84 24 30 03/13/17 21:00 30 03/13/17 21:00 84 21 112/62 100 Mechanical Ventilator 30 03/13/17 20:00 77 03/13/17 20:00 99.1 79 18 98/35 100 Mechanical Ventilator 30 03/13/17 19:27 75 18 30 03/13/17 19:00 79 18 145/43 100 Mechanical Ventilator 30 03/13/17 18:00 84 23 125/43 100 Mechanical Ventilator 30 03/13/17 17:00 85 19 129/105 100 Mechanical Ventilator 30 03/13/17 16:58 90 24 30 03/13/17 16:00 30 03/13/17 16:00 84 03/13/17 16:00 99.2 83 22 131/103 100 Mechanical Ventilator 30 03/13/17 15:09 90 29 30 03/13/17 15:00 83 20 131/77 100 Mechanical Ventilator 30 03/13/17 14:00 71 20 111/35 100 Mechanical Ventilator 30 03/13/17 13:00 87 19 121/55 100 Mechanical Ventilator 30 03/13/17 12:34 74 18 30 03/13/17 12:00 30 03/13/17 12:00 86 03/13/17 12:00 98.9 81 18 137/42 100 Mechanical Ventilator 30 03/13/17 11:00 91 20 120/87 100 Mechanical Ventilator 30 03/13/17 10:55 99 28 30 Status: awake Condition: critical HEENT: atraumatic Neck: full ROM Lungs: chest wall tender Heart: HR/BP stable, regular Abdomen: soft, active bowel sounds, feeding tube Extremities: no C/C/E, edema Decubiti: location Micro: Microbiology Date/Time Source Procedure Growth Status 03/12/17 02:08 Blood Blood Culture - Preliminary NO GROWTH AFTER 48 HOURS Resulted 03/12/17 01:55 Blood Blood Culture - Preliminary NO GROWTH AFTER 48 HOURS Resulted 03/12/17 17:00 Sputum Gram Stain - Final Resulted 03/12/17 17:00 Sputum Culture - Preliminary Staphylococcus Aureus Resulted 03/12/17 10:30 Nasal Nares MRSA Culture - Final NO METHICILLIN RESISTANT STAPH AUREUS... Complete 03/12/17 02:23 Urine,Clean Catch Urine Culture - Preliminary NO GROWTH AFTER 24 HOURS Resulted Accucheck: 298 Critical Care - Subjective ROS Limited/Unobtainable: Yes ICU Day: 3 Intubation Day: 3 Condition: critical EKG Rhythm: Sinus Rhythm FI02: 30 Vent Support Breath Rate: 18 Vent Support Mode: AC Vent Tidal Volume: 500 Sputum Amount: Moderate PEEP: 5.0 PIP: 32 Fluids: d5w 100 cc.hour Tube Feeding Amount: 45 I&O: Intake and Output 03/14/17 03/15/17 19:00 07:00 Intake Total 545 ml Output Total 95 ml Balance 450 ml IV Total 410 ml Tube Feeding 135 ml Output Urine Total 95 ml CXR: RLL infiltrate ET-Tube: 7.0 ET Position: 21 Labs: Laboratory Tests Test 03/14/17 04:00 03/14/17 08:01 White Blood Count 12.6 K/UL (4.8-10.8) H Red Blood Count 2.51 M/UL (4.20-5.40) L Hemoglobin 8.6 G/DL (12.0-16.0) L Hematocrit 25.9 % (37.0-47.0) L Mean Corpuscular Volume 103 FL (80-99) H Mean Corpuscular Hemoglobin 34.2 PG (27.0-31.0) H Mean Corpuscular Hemoglobin Concent 33.2 G/DL (32.0-36.0) Red Cell Distribution Width 12.9 % (11.6-14.8) Platelet Count 227 K/UL (150-450) Mean Platelet Volume 10.6 FL (6.5-10.1) H Neutrophils (%) (Auto) % (45.0-75.0) Lymphocytes (%) (Auto) % (20.0-45.0) Monocytes (%) (Auto) % (1.0-10.0) Eosinophils (%) (Auto) % (0.0-3.0) Basophils (%) (Auto) % (0.0-2.0) Sodium Level 143 mEQ/L (135-145) Potassium Level 2.9 mEQ/L (3.4-4.9) L Chloride Level 109 mEQ/L (98-107) H Carbon Dioxide Level 21 mEQ/L (20-30) Anion Gap 13 (5-15) Blood Urea Nitrogen 21 mg/dL (7-23) Creatinine 0.8 mg/dL (0.5-0.9) Estimat Glomerular Filtration Rate mL/min (>60) Glucose Level 289 mg/dL (74-106) #H Calcium Level 7.9 mg/dL (8.6-10.2) L Phosphorus Level 1.8 mg/dL (2.5-4.8) L Magnesium Level 2.1 mg/dL (1.7-2.5) Total Bilirubin 0.4 mg/dL (0.0-1.2) Aspartate Amino Transf (AST/SGOT) 42 U/L (5-40) H Alanine Aminotransferase (ALT/SGPT) 15 U/L (3-33) Alkaline Phosphatase 102 U/L (35-104) Total Protein 5.7 g/dL (6.6-8.7) L Albumin 2.2 g/dL (3.5-5.2) L Globulin 3.5 g/dL Albumin/Globulin Ratio 0.6 (1.0-2.7) L Arterial Blood pH 7.490 (7.350-7.450) Arterial Blood Partial Pressure CO2 32.0 mmHg (35.0-45.0) L Arterial Blood Partial Pressure O2 72.7 mmHg (75.0-100.0) L Arterial Blood HCO3 23.9 mmol/L (22.0-26.0) Arterial Blood Oxygen Saturation 95.2 % (92.0-98.0) Arterial Blood Base Excess 0.9 Shaun Test Positive ZAIRA ROSALES Mar 14, 2017 10:55
[2017-03-14] MEDS ORDERED: Potassium Phosphate 30 MM in NS 275 ML IV ONE (11:00)
--- NOTE | 2017-03-14 11:24 | General Progress Note ---
Assessment/Plan Status: stable - from renal stand Assessment/Plan Respiratory failure requiring intubation Severe sepsis secondary to pneumonia, resolving UTI Acute cystitis without hematuria Pneumonia, non cavitary, w/o effusion Dementia Acute renal failure , Dehydration Hypoxemic respiratory failure Type 2 diabetes mellitus with hyperglycemia Proteinuria Plan: Pulm support- Stop IV K Phos IV Monitor renal parameters Urine studies- Avoid Nephrotoxics- Per Orders Subjective ROS Limited/Unobtainable: Yes Allergies: Coded Allergies: LORAZEPAM (Unverified Allergy, Unknown, 03/02/17) METOCLOPRAMIDE (Unverified Allergy, Unknown, 03/02/17) QUETIAPINE (Unverified Allergy, Unknown, 03/02/17) ZOLPIDEM (Unverified Allergy, Unknown, 03/02/17) Objective Last 24 Hour Vital Signs Date Time Temp Pulse Resp B/P (MAP) Pulse Ox O2 Delivery O2 Flow Rate FiO2 03/14/17 10:57 82 24 30 03/14/17 10:00 84 22 133/99 99 Mechanical Ventilator 30 03/14/17 09:16 93 29 30 03/14/17 09:00 89 25 141/71 100 Mechanical Ventilator 03/14/17 08:00 80 03/14/17 08:00 30 03/14/17 08:00 99.2 82 20 135/42 100 Mechanical Ventilator 03/14/17 07:30 124/52 03/14/17 07:00 91 21 124/52 100 Mechanical Ventilator 03/14/17 06:52 78 19 30 03/14/17 06:00 84 21 126/42 100 Mechanical Ventilator 30 03/14/17 05:08 83 25 30 03/14/17 05:00 81 20 107/77 100 Mechanical Ventilator 30 03/14/17 04:00 30 03/14/17 04:00 87 03/14/17 04:00 98.3 86 17 141/48 100 Mechanical Ventilator 03/14/17 03:28 85 25 30 03/14/17 03:00 79 20 109/37 99 Mechanical Ventilator 30 03/14/17 02:00 79 20 101/84 100 Mechanical Ventilator 30 03/14/17 01:00 76 19 107/42 100 Mechanical Ventilator 30 03/14/17 00:52 91 27 30 03/14/17 00:00 30 03/14/17 00:00 98.3 82 17 87/67 100 Mechanical Ventilator 30 03/14/17 00:00 86 03/13/17 23:15 80 21 30 03/13/17 23:00 80 19 107/50 100 Mechanical Ventilator 30 03/13/17 22:00 98.3 77 17 127/81 100 Mechanical Ventilator 30 03/13/17 21:18 84 24 30 03/13/17 21:00 30 03/13/17 21:00 84 21 112/62 100 Mechanical Ventilator 30 03/13/17 20:00 77 03/13/17 20:00 99.1 79 18 98/35 100 Mechanical Ventilator 30 03/13/17 19:27 75 18 30 03/13/17 19:00 79 18 145/43 100 Mechanical Ventilator 30 03/13/17 18:00 84 23 125/43 100 Mechanical Ventilator 30 03/13/17 17:00 85 19 129/105 100 Mechanical Ventilator 30 03/13/17 16:58 90 24 30 03/13/17 16:00 30 03/13/17 16:00 84 03/13/17 16:00 99.2 83 22 131/103 100 Mechanical Ventilator 30 03/13/17 15:09 90 29 30 03/13/17 15:00 83 20 131/77 100 Mechanical Ventilator 30 03/13/17 14:00 71 20 111/35 100 Mechanical Ventilator 30 03/13/17 13:00 87 19 121/55 100 Mechanical Ventilator 30 03/13/17 12:34 74 18 30 03/13/17 12:00 30 03/13/17 12:00 86 03/13/17 12:00 98.9 81 18 137/42 100 Mechanical Ventilator 30 Intake and Output 03/14/17 03/15/17 19:00 07:00 Intake Total 545 ml Output Total 95 ml Balance 450 ml IV Total 410 ml Tube Feeding 135 ml Output Urine Total 95 ml Laboratory Tests 03/14/17 04:00: White Blood Count 12.6H, Red Blood Count 2.51L, Hemoglobin 8.6L, Hematocrit 25.9L, Mean Corpuscular Volume 103H, Mean Corpuscular Hemoglobin 34.2H, Mean Corpuscular Hemoglobin Concent 33.2, Red Cell Distribution Width 12.9, Platelet Count 227, Mean Platelet Volume 10.6H, Neutrophils (%) (Auto) , Lymphocytes (%) (Auto) , Monocytes (%) (Auto) , Eosinophils (%) (Auto) , Basophils (%) (Auto) , Sodium Level 143, Potassium Level 2.9L, Chloride Level 109H, Carbon Dioxide Level 21, Anion Gap 13, Blood Urea Nitrogen 21, Creatinine 0.8, Estimat Glomerular Filtration Rate , Glucose Level 289#H, Calcium Level 7.9L, Phosphorus Level 1.8L, Magnesium Level 2.1, Total Bilirubin 0.4, Aspartate Amino Transf (AST/SGOT) 42H, Alanine Aminotransferase (ALT/SGPT) 15, Alkaline Phosphatase 102, Total Protein 5.7L, Albumin 2.2L, Globulin 3.5, Albumin/ Globulin Ratio 0.6L 03/14/17 08:01: Arterial Blood pH 7.490H, Arterial Blood Partial Pressure CO2 32.0L, Arterial Blood Partial Pressure O2 72.7L, Arterial Blood HCO3 23.9, Arterial Blood Oxygen Saturation 95.2, Arterial Blood Base Excess 0.9, Shaun Test Positive Height (Feet): 5 Height (Inches): 2.00 Weight (Pounds): 124 EENT: other - intubated Cardiovascular: tachycardia Respiratory/Chest: decreased breath sounds Abdomen: soft IRWIN DAMON Mar 14, 2017 11:24
--- NOTE | 2017-03-14 12:19 | Diagnostic Imaging Report ---
Indication: Dyspnea Comparison: 03/13/2017 A single view chest radiograph was obtained. Findings: Heart size is normal and stable. Basilar infiltrate suspicious for pneumonia demonstrated. Endotracheal tube remains in good position above the pema. Impression: Basilar infiltrates. Pneumonia suspected. No change
[2017-03-14] MEDS ORDERED: Potassium Phosphate 30 MM in Sodium Chloride 550 ML IV ONE (13:00)
--- NOTE | 2017-03-14 16:21 | Infectious Diseases Prog Note ---
Assessment/Plan Assessment/Plan IMPRESSION: persistent leukocytosis, but improved hemodynamics and resolution of lactic acidosis, Dx: Staph aureus pneumonia, pending sensitivities 1. Severe sepsis with multiorgan failure, improving, secondary to pneumonia IV vancomycin and meropenem, D#3 s/p recent admission for hypoxemic resp failure and pneumonia, treated with D#7 IV vanc/cefepime completed on [id number] 03/12 ucx ngtd at 24 hrs 03/12 blood cx ngtd at 48 hrs. 2. Bibasilar staph aureus pneumonia 3. Acute respiratory failure. 4. Acute renal failure. 5. Diabetes type 2 with hyperglycemia. 6. Dementia. 7. Methicillin resistant Staphylococcus aureus colonization. 8. r/o urosepsis 9. lactic acidosis, resolved RECOMMENDATION: --continue empiric IV vancomycin and meropenem, D#3 --monitor blood cx --monitor urine cx --monitor sputum cx --monitor CBC --monitor temp curve Subjective ROS Limited/Unobtainable: Yes Allergies: Coded Allergies: LORAZEPAM (Unverified Allergy, Unknown, 03/02/17) METOCLOPRAMIDE (Unverified Allergy, Unknown, 03/02/17) QUETIAPINE (Unverified Allergy, Unknown, 03/02/17) ZOLPIDEM (Unverified Allergy, Unknown, 03/02/17) Objective Vital Signs Last 24 Hour Vital Signs Date Time Temp Pulse Resp B/P (MAP) Pulse Ox O2 Delivery O2 Flow Rate FiO2 03/14/17 16:00 67 03/14/17 16:00 99.2 67 16 116/37 99 Mechanical Ventilator 30 03/14/17 15:00 71 16 125/38 99 Mechanical Ventilator 30 03/14/17 14:54 70 17 30 03/14/17 14:05 30 03/14/17 14:00 83 35 134/51 99 Mechanical Ventilator 30 03/14/17 13:00 87 24 136/46 100 Mechanical Ventilator 30 03/14/17 12:35 30 03/14/17 12:32 84 25 30 03/14/17 12:00 30 03/14/17 12:00 89 03/14/17 12:00 99.5 79 20 106/48 99 Mechanical Ventilator 30 03/14/17 11:00 75 22 149/53 99 Mechanical Ventilator 30 03/14/17 10:57 82 24 30 03/14/17 10:00 84 22 133/99 99 Mechanical Ventilator 30 03/14/17 09:16 93 29 30 03/14/17 09:00 89 25 141/71 100 Mechanical Ventilator 30 03/14/17 08:00 80 03/14/17 08:00 30 03/14/17 08:00 99.2 82 20 135/42 100 Mechanical Ventilator 30 03/14/17 07:30 124/52 03/14/17 07:00 91 21 124/52 100 Mechanical Ventilator 30 03/14/17 06:52 78 19 30 03/14/17 06:00 84 21 126/42 100 Mechanical Ventilator 30 03/14/17 05:08 83 25 30 03/14/17 05:00 81 20 107/77 100 Mechanical Ventilator 30 03/14/17 04:00 30 03/14/17 04:00 87 03/14/17 04:00 98.3 86 17 141/48 100 Mechanical Ventilator 30 03/14/17 03:28 85 25 30 03/14/17 03:00 79 20 109/37 99 Mechanical Ventilator 30 03/14/17 02:00 79 20 101/84 100 Mechanical Ventilator 30 03/14/17 01:00 76 19 107/42 100 Mechanical Ventilator 30 03/14/17 00:52 91 27 30 03/14/17 00:00 30 03/14/17 00:00 98.3 82 17 87/67 100 Mechanical Ventilator 30 03/14/17 00:00 86 03/13/17 23:15 80 21 30 03/13/17 23:00 80 19 107/50 100 Mechanical Ventilator 30 03/13/17 22:00 98.3 77 17 127/81 100 Mechanical Ventilator 30 03/13/17 21:18 84 24 30 03/13/17 21:00 30 03/13/17 21:00 84 21 112/62 100 Mechanical Ventilator 30 03/13/17 20:00 77 03/13/17 20:00 99.1 79 18 98/35 100 Mechanical Ventilator 30 03/13/17 19:27 75 18 30 03/13/17 19:00 79 18 145/43 100 Mechanical Ventilator 30 03/13/17 18:00 84 23 125/43 100 Mechanical Ventilator 30 03/13/17 17:00 85 19 129/105 100 Mechanical Ventilator 30 03/13/17 16:58 90 24 30 Height (Feet): 5 Height (Inches): 2.00 Weight (Pounds): 124 Objective gen: intubated, not currently sedated, opens eyes, fighting vent a bit heent: oral mucosa dry, sclera anicteric cv: rrr lungs: coarse rhonchi abd: G tube in place, soft, nttp ext: trace ble. R femoral TLC CVC. bue contractures, mild. gu: wayne in place skin: no rash, no petechiae. Microbiology Date/Time Source Procedure Growth Status 03/12/17 02:08 Blood Blood Culture - Preliminary NO GROWTH AFTER 48 HOURS Resulted 03/12/17 01:55 Blood Blood Culture - Preliminary NO GROWTH AFTER 48 HOURS Resulted 03/12/17 17:00 Sputum Gram Stain - Final Resulted 03/12/17 17:00 Sputum Culture - Preliminary Staphylococcus Aureus Resulted 03/12/17 10:30 Nasal Nares MRSA Culture - Final NO METHICILLIN RESISTANT STAPH AUREUS... Complete 03/12/17 02:23 Urine,Clean Catch Urine Culture - Preliminary NO GROWTH AFTER 24 HOURS Resulted Laboratory Tests Test 03/14/17 04:00 03/14/17 08:01 White Blood Count 12.6 K/UL (4.8-10.8) H Red Blood Count 2.51 M/UL (4.20-5.40) L Hemoglobin 8.6 G/DL (12.0-16.0) L Hematocrit 25.9 % (37.0-47.0) L Mean Corpuscular Volume 103 FL (80-99) H Mean Corpuscular Hemoglobin 34.2 PG (27.0-31.0) H Mean Corpuscular Hemoglobin Concent 33.2 G/DL (32.0-36.0) Red Cell Distribution Width 12.9 % (11.6-14.8) Platelet Count 227 K/UL (150-450) Mean Platelet Volume 10.6 FL (6.5-10.1) H Neutrophils (%) (Auto) % (45.0-75.0) Lymphocytes (%) (Auto) % (20.0-45.0) Monocytes (%) (Auto) % (1.0-10.0) Eosinophils (%) (Auto) % (0.0-3.0) Basophils (%) (Auto) % (0.0-2.0) Sodium Level 143 mEQ/L (135-145) Potassium Level 2.9 mEQ/L (3.4-4.9) L Chloride Level 109 mEQ/L (98-107) H Carbon Dioxide Level 21 mEQ/L (20-30) Anion Gap 13 (5-15) Blood Urea Nitrogen 21 mg/dL (7-23) Creatinine 0.8 mg/dL (0.5-0.9) Estimat Glomerular Filtration Rate mL/min (>60) Glucose Level 289 mg/dL (74-106) #H Calcium Level 7.9 mg/dL (8.6-10.2) L Phosphorus Level 1.8 mg/dL (2.5-4.8) L Magnesium Level 2.1 mg/dL (1.7-2.5) Total Bilirubin 0.4 mg/dL (0.0-1.2) Aspartate Amino Transf (AST/SGOT) 42 U/L (5-40) H Alanine Aminotransferase (ALT/SGPT) 15 U/L (3-33) Alkaline Phosphatase 102 U/L (35-104) Total Protein 5.7 g/dL (6.6-8.7) L Albumin 2.2 g/dL (3.5-5.2) L Globulin 3.5 g/dL Albumin/Globulin Ratio 0.6 (1.0-2.7) L Arterial Blood pH 7.490 (7.350-7.450) Arterial Blood Partial Pressure CO2 32.0 mmHg (35.0-45.0) L Arterial Blood Partial Pressure O2 72.7 mmHg (75.0-100.0) L Arterial Blood HCO3 23.9 mmol/L (22.0-26.0) Arterial Blood Oxygen Saturation 95.2 % (92.0-98.0) Arterial Blood Base Excess 0.9 Shaun Test Positive Current Medications Medications (Trade) Dose Ordered Sig/Ramiro Route PRN Reason Start Time Stop Time Status Last Admin Dose Admin Acetaminophen (Tylenol) 650 mg Q4H PRN ORAL fever>100.5 03/12/17 07:30 04/11/17 07:29 Albuterol/ Ipratropium (DuoNeb 0.5-3(2.5)mg/3ml) 3 ml Q4H PRN HHN Shortness of Breath 03/12/17 07:30 03/17/17 07:29 Chlorhexidine Gluconate (Halie-Hex 2%) 1 applic BIOTEC TOPIC 03/13/17 21:00 04/12/17 20:59 03/13/17 20:31 Dextrose 1,000 ml @ 50 mls/hr Q20H IV 03/14/17 11:30 04/13/17 11:29 03/14/17 11:42 Dextrose (Dextrose 50%) STAT PRN IV Hypoglycemia 03/12/17 10:00 04/11/17 09:59 Famotidine (Pepcid I.v.) 20 mg DAILY IVP 03/13/17 10:00 04/12/17 09:59 03/14/17 08:32 Heparin Sodium (Porcine) (Heparin 5000 units/ml) 5,000 units EVERY 12 HOURS SUBQ 03/12/17 09:00 04/11/17 08:59 03/14/17 08:31 Insulin Aspart (NovoLOG) Q4H SUBQ 03/12/17 12:00 04/11/17 11:59 03/14/17 11:43 Meropenem 1 gm/ Sodium Chloride 110 ml @ 220 mls/hr Q12HR IVPB 03/14/17 21:00 03/19/17 20:59 Morphine Sulfate (Morphine Sulfate) 4 mg Q4H PRN IVP Severe Pain (Pain Scale 7-10) 03/12/17 07:30 03/19/17 07:29 Norepinephrine Bitartrate 4 mg/ Dextrose 254 ml @ 0 mls/hr Q24H IV 03/12/17 07:30 04/11/17 07:29 Ondansetron HCl (Zofran) 4 mg Q6H PRN IVP Nausea & Vomiting 03/12/17 07:30 04/11/17 07:29 Polyethylene Glycol (Miralax) 17 gm DAILYPRN PRN ORAL Constipation 03/12/17 07:30 04/11/17 07:29 Potassium Phosphate 30 mm/ Sodium Chloride 285 ml @ 47.5 mls/hr ONCE ONCE IV 03/14/17 11:00 03/14/17 16:59 03/14/17 11:41 Vancomycin HCl (Vanco rx to dose) 1 ea DAILY PRN MISC PER RX PROTOCOL 03/13/17 11:30 04/12/17 11:29 Vancomycin/Sodium Chloride 250 ml @ 166.667 mls/hr Q24H IVPB 03/13/17 17:00 03/18/17 16:59 03/13/17 16:19 aPul Amaya M.D. Mar 14, 2017 16:21
--- NOTE | 2017-03-14 16:37 | General Progress Note ---
Assessment/Plan Assessment/Plan 1. Leukocytosis, secondary to underlying sepsis. Continue monitoring. --> improving --> on abx per id service 2. Anemia secondary to chronic disease. Ferritin is elevated, TIBC is low. --> transfuse if hgb is less than 8 --> monitor counts 4. Coagulopathy, potentially secondary to underlying sepsis as well. PTT is elevated. Prothrombin time is elevated. 5. Methicillin-resistant Staphylococcus aureus colonization. 6. Respiratory failure, status post intubation. 7. Acute kidney injury. --> nephrology following Subjective Constitutional: Reports: no symptoms HEENT: Reports: no symptoms Cardiovascular: Reports: no symptoms Respiratory: Reports: no symptoms Gastrointestinal/Abdominal: Reports: no symptoms Genitourinary: Reports: no symptoms Neurologic/Psychiatric: Reports: no symptoms Endocrine: Reports: no symptoms Hematologic/Lymphatic: Reports: anemia Allergies: Coded Allergies: LORAZEPAM (Unverified Allergy, Unknown, 03/02/17) METOCLOPRAMIDE (Unverified Allergy, Unknown, 03/02/17) QUETIAPINE (Unverified Allergy, Unknown, 03/02/17) ZOLPIDEM (Unverified Allergy, Unknown, 03/02/17) Subjective afebrile, no acute bleeding Objective Last 24 Hour Vital Signs Date Time Temp Pulse Resp B/P (MAP) Pulse Ox O2 Delivery O2 Flow Rate FiO2 03/14/17 16:00 67 03/14/17 16:00 99.2 67 16 116/37 99 Mechanical Ventilator 30 03/14/17 15:00 71 16 125/38 99 Mechanical Ventilator 03/14/17 14:54 70 17 30 03/14/17 14:05 30 03/14/17 14:00 83 35 134/51 99 Mechanical Ventilator 30 03/14/17 13:00 87 24 136/46 100 Mechanical Ventilator 30 03/14/17 12:35 30 03/14/17 12:32 84 25 30 03/14/17 12:00 30 03/14/17 12:00 89 03/14/17 12:00 99.5 79 20 106/48 99 Mechanical Ventilator 30 03/14/17 11:00 75 22 149/53 99 Mechanical Ventilator 30 03/14/17 10:57 82 24 30 03/14/17 10:00 84 22 133/99 99 Mechanical Ventilator 30 03/14/17 09:16 93 29 30 03/14/17 09:00 89 25 141/71 100 Mechanical Ventilator 30 03/14/17 08:00 80 03/14/17 08:00 30 03/14/17 08:00 99.2 82 20 135/42 100 Mechanical Ventilator 30 03/14/17 07:30 124/52 03/14/17 07:00 91 21 124/52 100 Mechanical Ventilator 30 03/14/17 06:52 78 19 30 03/14/17 06:00 84 21 126/42 100 Mechanical Ventilator 30 03/14/17 05:08 83 25 30 03/14/17 05:00 81 20 107/77 100 Mechanical Ventilator 30 03/14/17 04:00 30 03/14/17 04:00 87 03/14/17 04:00 98.3 86 17 141/48 100 Mechanical Ventilator 30 03/14/17 03:28 85 25 30 03/14/17 03:00 79 20 109/37 99 Mechanical Ventilator 30 03/14/17 02:00 79 20 101/84 100 Mechanical Ventilator 30 03/14/17 01:00 76 19 107/42 100 Mechanical Ventilator 30 03/14/17 00:52 91 27 30 03/14/17 00:00 30 03/14/17 00:00 98.3 82 17 87/67 100 Mechanical Ventilator 30 03/14/17 00:00 86 03/13/17 23:15 80 21 30 03/13/17 23:00 80 19 107/50 100 Mechanical Ventilator 30 03/13/17 22:00 98.3 77 17 127/81 100 Mechanical Ventilator 30 03/13/17 21:18 84 24 30 03/13/17 21:00 30 03/13/17 21:00 84 21 112/62 100 Mechanical Ventilator 30 03/13/17 20:00 77 03/13/17 20:00 99.1 79 18 98/35 100 Mechanical Ventilator 30 03/13/17 19:27 75 18 30 03/13/17 19:00 79 18 145/43 100 Mechanical Ventilator 30 03/13/17 18:00 84 23 125/43 100 Mechanical Ventilator 30 03/13/17 17:00 85 19 129/105 100 Mechanical Ventilator 30 03/13/17 16:58 90 24 30 Intake and Output 03/14/17 03/15/17 19:00 07:00 Intake Total 1125.0 ml Output Total 275 ml Balance 850.0 ml Free Water 50 ml IV Total 670.0 ml Tube Feeding 405 ml Output Urine Total 275 ml Laboratory Tests 03/14/17 04:00: White Blood Count 12.6H, Red Blood Count 2.51L, Hemoglobin 8.6L, Hematocrit 25.9L, Mean Corpuscular Volume 103H, Mean Corpuscular Hemoglobin 34.2H, Mean Corpuscular Hemoglobin Concent 33.2, Red Cell Distribution Width 12.9, Platelet Count 227, Mean Platelet Volume 10.6H, Neutrophils (%) (Auto) , Lymphocytes (%) (Auto) , Monocytes (%) (Auto) , Eosinophils (%) (Auto) , Basophils (%) (Auto) , Sodium Level 143, Potassium Level 2.9L, Chloride Level 109H, Carbon Dioxide Level 21, Anion Gap 13, Blood Urea Nitrogen 21, Creatinine 0.8, Estimat Glomerular Filtration Rate , Glucose Level 289#H, Calcium Level 7.9L, Phosphorus Level 1.8L, Magnesium Level 2.1, Total Bilirubin 0.4, Aspartate Amino Transf (AST/SGOT) 42H, Alanine Aminotransferase (ALT/SGPT) 15, Alkaline Phosphatase 102, Total Protein 5.7L, Albumin 2.2L, Globulin 3.5, Albumin/ Globulin Ratio 0.6L 03/14/17 08:01: Arterial Blood pH 7.490H, Arterial Blood Partial Pressure CO2 32.0L, Arterial Blood Partial Pressure O2 72.7L, Arterial Blood HCO3 23.9, Arterial Blood Oxygen Saturation 95.2, Arterial Blood Base Excess 0.9, Shaun Test Positive Height (Feet): 5 Height (Inches): 2.00 Weight (Pounds): 124 General Appearance: no apparent distress EENT: PERRL/EOMI Neck: normal alignment Cardiovascular: regular rhythm Abdomen: no organomegaly Edema: no edema noted Pedal (L), no edema noted Pedal (R) Skin: warm/dry Saul Luque Mar 14, 2017 16:37
[2017-03-14] MEDS: Vancomycin 750mg/NS 250ml IVPB SCH (17:30)
[2017-03-14] MEDS: Dyna-Hex 2% Top Sol 8oz TOPIC SCH (20:18)
[2017-03-14] MEDS: Meropenem 1gm/NS 110ml IVPB SCH ×2 (22:18)
[2017-03-15] VITALS (24 sets, daily range): BP systolic 106–135; BP diastolic 34–102
[2017-03-15] MEDS: NovoLOG Insulin Flexpen SUBQ SCH ×6 (04:30→23:41)
[2017-03-15 05:41] LABS: BASOPHILS % (AUTO) 0.8 % (0.0-2.0); EOSINOPHILS % (AUTO) 2.5 % (0.0-3.0); LYMPHOCYTES % (AUTO) 8.8 % (20.0-45.0); MEAN CORPUSCULAR HEMOGLOBIN 35.1 PG (27.0-31.0); MEAN CORPUSCULAR HGB CONC 34.2 G/DL (32.0-36.0); MEAN CORPUSCULAR VOLUME 103 FL (80-99); MEAN PLATELET VOLUME 11.4 FL (6.5-10.1); MONOCYTES % (AUTO) 5.9 % (1.0-10.0); PLATELET COUNT 227 K/UL (150-450); RED BLOOD COUNT 2.34 M/UL (4.20-5.40)
[2017-03-15 05:46] LABS: CRP QUANT 9.1 mg/dL (< 0.5); URIC ACID 2.9 mg/dL (3.0-7.5)
[2017-03-15 05:47] LABS: ALANINE AMINOTRANSFERASE 20 U/L (3-33); ALBUMIN/GLOBULIN RATIO 0.5 (1.0-2.7); ANION GAP 10 (5-15); ASPARTATE AMINO TRANSFERASE 43 U/L (5-40); CARBON DIOXIDE 24 mEQ/L (20-30); CHLORIDE 107 mEQ/L (98-107); CREATININE 0.7 mg/dL (0.5-0.9); HEMOLYSIS 2; MAGNESIUM 2.1 mg/dL (1.7-2.5); PHOSPHORUS 2.7 mg/dL (2.5-4.8); POTASSIUM 4.3 mEQ/L (3.4-4.9); SODIUM 141 mEQ/L (135-145); TOTAL PROTEIN 5.3 g/dL (6.6-8.7)
[2017-03-15] MEDS: Famotidine 20 MG/ 2ML VIAL IVP SCH (08:38)
[2017-03-15] MEDS: Meropenem 1gm/NS 110ml IVPB SCH ×2 (08:38)
[2017-03-15] MEDS: Heparin 5000 units/ml inj SUBQ SCH ×2 (08:41→20:44)
--- NOTE | 2017-03-15 10:05 | Pulmonolgy Critical Care Note ---
Critical Care - Asmt/Plan Problems: (1) Respiratory failure requiring intubation (2) Pneumonia (3) Anemia (4) Advanced dementia (5) Feeding by G-tube (6) Severe sepsis Respiratory: monitor respiratory rate, adjust FIO2, CXR Cardiac: continue to monitor HR/BP Renal: F/U I&O, keep IV fluid, check electrolytes Infectious Disease: check cultures, continue antibiotics Gastrointestinal: continue feedings/current rate Endocrine: monitor blood sugar, check HgA1C, continue sliding scale insulin Hematologic: monitor H/H, transfuse if hgb<8.5 Neurologic: PRN Ativan, PRN Morphine, keep patient comfortable Affect: PRN ativan Prophylaxis: Protonix Disposition: keep in ICU Notes 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: 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, 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, renal Discussed with: nurses, consultants, patient case coordinator, family member - daughter at bed time Critical Care - Objective Last 24 Hour Vital Signs Date Time Temp Pulse Resp B/P (MAP) Pulse Ox O2 Delivery O2 Flow Rate FiO2 03/15/17 09:00 82 22 134/41 100 Mechanical Ventilator 30 03/15/17 08:00 89 03/15/17 08:00 30 03/15/17 08:00 99.1 88 18 119/44 100 Mechanical Ventilator 30 03/15/17 07:25 131/47 03/15/17 07:00 82 16 131/47 100 Mechanical Ventilator 30 03/15/17 06:00 87 16 130/61 100 Mechanical Ventilator 30 03/15/17 05:07 78 24 30 03/15/17 05:00 80 16 135/47 100 Mechanical Ventilator 30 03/15/17 04:00 30 03/15/17 04:00 75 03/15/17 04:00 99.3 82 18 120/42 100 Mechanical Ventilator 30 03/15/17 03:15 84 30 30 03/15/17 03:00 80 18 120/45 100 Mechanical Ventilator 30 03/15/17 02:00 72 18 131/41 100 Mechanical Ventilator 30 03/15/17 01:23 78 24 30 03/15/17 01:00 71 18 114/36 100 Mechanical Ventilator 30 03/15/17 00:00 72 20 106/37 100 Mechanical Ventilator 30 03/15/17 00:00 30 03/15/17 00:00 73 03/14/17 23:20 68 18 30 03/14/17 23:00 99.2 74 18 118/40 100 Mechanical Ventilator 30 03/14/17 22:00 74 18 135/65 100 Mechanical Ventilator 30 03/14/17 21:29 70 20 30 03/14/17 21:00 81 18 130/56 100 Mechanical Ventilator 30 03/14/17 20:00 30 03/14/17 20:00 67 03/14/17 20:00 99.5 67 16 110/87 99 Mechanical Ventilator 30 03/14/17 19:16 72 19 30 03/14/17 19:00 72 18 110/38 100 Mechanical Ventilator 30 03/14/17 18:00 71 18 114/42 100 Mechanical Ventilator 30 03/14/17 17:00 79 20 122/39 99 Mechanical Ventilator 30 03/14/17 16:50 87 26 30 03/14/17 16:00 67 03/14/17 16:00 99.2 67 16 116/37 99 Mechanical Ventilator 30 03/14/17 15:00 71 16 125/38 99 Mechanical Ventilator 30 03/14/17 14:54 70 17 30 03/14/17 14:05 30 03/14/17 14:00 83 35 134/51 99 Mechanical Ventilator 30 03/14/17 13:00 87 24 136/46 100 Mechanical Ventilator 30 03/14/17 12:35 30 03/14/17 12:32 84 25 30 03/14/17 12:00 30 03/14/17 12:00 89 03/14/17 12:00 99.5 79 20 106/48 99 Mechanical Ventilator 30 03/14/17 11:00 75 22 149/53 99 Mechanical Ventilator 30 03/14/17 10:57 82 24 30 Status: awake Condition: critical HEENT: atraumatic, normocephalic Lungs: clear Heart: HR/BP stable, HR/BP unstable Abdomen: non-tender, active bowel sounds Extremities: no C/C/E Micro: Microbiology Date/Time Source Procedure Growth Status 03/12/17 17:00 Sputum Gram Stain - Final Complete 03/12/17 17:00 Sputum Culture - Final Staphylococcus Aureus - Mrsa Usual Upper Respiratory Freida Complete 03/12/17 10:30 Nasal Nares MRSA Culture - Final NO METHICILLIN RESISTANT STAPH AUREUS... Complete 03/12/17 21:10 Rectum VRE Culture - Final NO VANCOMYCIN RESISTANT ENTEROCOCCUS ... Complete Accucheck: 275 Critical Care - Subjective ROS Limited/Unobtainable: No ICU Day: 3 Intubation Day: 3 Condition: critical EKG Rhythm: Sinus Rhythm FI02: 30 Vent Support Breath Rate: 18 Vent Support Mode: AC Vent Tidal Volume: 500 Sputum Amount: Scant PEEP: 5.0 PIP: 26 Tube Feeding Amount: 45 I&O: Intake and Output 03/15/17 03/16/17 19:00 07:00 Intake Total 170 ml Output Total 100 ml Balance 70 ml Free Water 30 ml IV Total 50 ml Tube Feeding 90 ml Output Urine Total 100 ml CXR: NO CHANGE in infiltrate. ET-Tube: 7.0 ET Position: 22 Labs: Laboratory Tests Test 03/14/17 16:40 03/15/17 04:15 Vancomycin Level Trough 12.2 ug/mL (5.0-12.0) H White Blood Count 9.0 K/UL (4.8-10.8) Red Blood Count 2.34 M/UL (4.20-5.40) L Hemoglobin 8.2 G/DL (12.0-16.0) L Hematocrit 24.0 % (37.0-47.0) L Mean Corpuscular Volume 103 FL (80-99) H Mean Corpuscular Hemoglobin 35.1 PG (27.0-31.0) H Mean Corpuscular Hemoglobin Concent 34.2 G/DL (32.0-36.0) Red Cell Distribution Width 13.0 % (11.6-14.8) Platelet Count 227 K/UL (150-450) Mean Platelet Volume 11.4 FL (6.5-10.1) H Neutrophils (%) (Auto) 82.0 % (45.0-75.0) H Lymphocytes (%) (Auto) 8.8 % (20.0-45.0) L Monocytes (%) (Auto) 5.9 % (1.0-10.0) Eosinophils (%) (Auto) 2.5 % (0.0-3.0) Basophils (%) (Auto) 0.8 % (0.0-2.0) Sodium Level 141 mEQ/L (135-145) Potassium Level 4.3 mEQ/L (3.4-4.9) Chloride Level 107 mEQ/L (98-107) Carbon Dioxide Level 24 mEQ/L (20-30) Anion Gap 10 (5-15) Blood Urea Nitrogen 21 mg/dL (7-23) Creatinine 0.7 mg/dL (0.5-0.9) Estimat Glomerular Filtration Rate mL/min (>60) Glucose Level 316 mg/dL (74-106) H Uric Acid 2.9 mg/dL (3.0-7.5) L Calcium Level 8.0 mg/dL (8.6-10.2) L Phosphorus Level 2.7 mg/dL (2.5-4.8) Magnesium Level 2.1 mg/dL (1.7-2.5) Total Bilirubin 0.4 mg/dL (0.0-1.2) Aspartate Amino Transf (AST/SGOT) 43 U/L (5-40) H Alanine Aminotransferase (ALT/SGPT) 20 U/L (3-33) Alkaline Phosphatase 156 U/L (35-104) H C-Reactive Protein, Quantitative 9.1 mg/dL (< 0.5) H Pro-B-Type Natriuretic Peptide 1503 pg/mL (0-450) H Total Protein 5.3 g/dL (6.6-8.7) L Albumin 1.9 g/dL (3.5-5.2) L Globulin 3.4 g/dL Albumin/Globulin Ratio 0.5 (1.0-2.7) L ZAIRA ROSALES Mar 15, 2017 10:05
--- NOTE | 2017-03-15 10:39 | General Progress Note ---
Assessment/Plan Status: unchanged Assessment/Plan Respiratory failure requiring intubation Severe sepsis secondary to pneumonia, resolving UTI Acute cystitis without hematuria Pneumonia, non cavitary, w/o effusion Dementia Acute renal failure , Dehydration Hypoxemic respiratory failure Type 2 diabetes mellitus with hyperglycemia Proteinuria Plan: Pulm support- Stop IV K Phos IV Monitor renal parameters Urine studies- Avoid Nephrotoxics- Per Orders Subjective ROS Limited/Unobtainable: Yes Allergies: Coded Allergies: LORAZEPAM (Unverified Allergy, Unknown, 03/02/17) METOCLOPRAMIDE (Unverified Allergy, Unknown, 03/02/17) QUETIAPINE (Unverified Allergy, Unknown, 03/02/17) ZOLPIDEM (Unverified Allergy, Unknown, 03/02/17) Objective Last 24 Hour Vital Signs Date Time Temp Pulse Resp B/P (MAP) Pulse Ox O2 Delivery O2 Flow Rate FiO2 03/15/17 09:00 82 22 134/41 100 Mechanical Ventilator 30 03/15/17 08:00 89 03/15/17 08:00 30 03/15/17 08:00 99.1 88 18 119/44 100 Mechanical Ventilator 30 03/15/17 07:25 131/47 03/15/17 07:00 82 16 131/47 100 Mechanical Ventilator 30 03/15/17 06:00 87 16 130/61 100 Mechanical Ventilator 30 03/15/17 05:07 78 24 30 03/15/17 05:00 80 16 135/47 100 Mechanical Ventilator 30 03/15/17 04:00 30 03/15/17 04:00 75 03/15/17 04:00 99.3 82 18 120/42 100 Mechanical Ventilator 03/15/17 03:15 84 30 30 03/15/17 03:00 80 18 120/45 100 Mechanical Ventilator 30 03/15/17 02:00 72 18 131/41 100 Mechanical Ventilator 30 03/15/17 01:23 78 24 30 03/15/17 01:00 71 18 114/36 100 Mechanical Ventilator 30 03/15/17 00:00 72 20 106/37 100 Mechanical Ventilator 30 03/15/17 00:00 30 03/15/17 00:00 73 03/14/17 23:20 68 18 30 03/14/17 23:00 99.2 74 18 118/40 100 Mechanical Ventilator 30 03/14/17 22:00 74 18 135/65 100 Mechanical Ventilator 30 03/14/17 21:29 70 20 30 03/14/17 21:00 81 18 130/56 100 Mechanical Ventilator 30 03/14/17 20:00 30 03/14/17 20:00 67 03/14/17 20:00 99.5 67 16 110/87 99 Mechanical Ventilator 30 03/14/17 19:16 72 19 30 03/14/17 19:00 72 18 110/38 100 Mechanical Ventilator 30 03/14/17 18:00 71 18 114/42 100 Mechanical Ventilator 30 03/14/17 17:00 79 20 122/39 99 Mechanical Ventilator 30 03/14/17 16:50 87 26 30 03/14/17 16:00 67 03/14/17 16:00 99.2 67 16 116/37 99 Mechanical Ventilator 30 03/14/17 15:00 71 16 125/38 99 Mechanical Ventilator 30 03/14/17 14:54 70 17 30 03/14/17 14:05 30 03/14/17 14:00 83 35 134/51 99 Mechanical Ventilator 30 03/14/17 13:00 87 24 136/46 100 Mechanical Ventilator 30 03/14/17 12:35 30 03/14/17 12:32 84 25 30 03/14/17 12:00 30 03/14/17 12:00 89 03/14/17 12:00 99.5 79 20 106/48 99 Mechanical Ventilator 30 03/14/17 11:00 75 22 149/53 99 Mechanical Ventilator 30 03/14/17 10:57 82 24 30 Intake and Output 03/15/17 03/16/17 19:00 07:00 Intake Total 170 ml Output Total 100 ml Balance 70 ml Free Water 30 ml IV Total 50 ml Tube Feeding 90 ml Output Urine Total 100 ml Laboratory Tests 03/14/17 16:40: Vancomycin Level Trough 12.2H 03/15/17 04:15: White Blood Count 9.0, Red Blood Count 2.34L, Hemoglobin 8.2L, Hematocrit 24.0L , Mean Corpuscular Volume 103H, Mean Corpuscular Hemoglobin 35.1H, Mean Corpuscular Hemoglobin Concent 34.2, Red Cell Distribution Width 13.0, Platelet Count 227, Mean Platelet Volume 11.4H, Neutrophils (%) (Auto) 82.0H, Lymphocytes (%) (Auto) 8.8L, Monocytes (%) (Auto) 5.9, Eosinophils (%) (Auto) 2.5, Basophils (%) (Auto) 0.8, Sodium Level 141, Potassium Level 4.3, Chloride Level 107, Carbon Dioxide Level 24, Anion Gap 10, Blood Urea Nitrogen 21, Creatinine 0.7, Estimat Glomerular Filtration Rate , Glucose Level 316H, Uric Acid 2.9L, Calcium Level 8.0L, Phosphorus Level 2.7, Magnesium Level 2.1, Total Bilirubin 0.4, Aspartate Amino Transf (AST/SGOT) 43H, Alanine Aminotransferase ( ALT/SGPT) 20, Alkaline Phosphatase 156H, C-Reactive Protein, Quantitative 9.1H, Pro-B-Type Natriuretic Peptide 1503H, Total Protein 5.3L, Albumin 1.9L, Globulin 3.4, Albumin/Globulin Ratio 0.5L Height (Feet): 5 Height (Inches): 2.00 Weight (Pounds): 124 General Appearance: no apparent distress Objective PE not changed IRWIN DAMON Mar 15, 2017 10:39
[2017-03-15 11:25] LABS: OTHERS PATHOLOGIST COMMENT
--- NOTE | 2017-03-15 11:56 | Diagnostic Imaging Report ---
Indication: Dyspnea Comparison: 03/14/2017 A single view chest radiograph was obtained. Findings: Patchy infiltrates are noted at the lung bases. Heart size is normal. Endotracheal tube is just above the pema. Impression: No significant roving changer the last day.
[2017-03-15] MEDS: Levemir Flexpen SUBQ SCH (14:25)
--- NOTE | 2017-03-15 15:29 | Infectious Diseases Prog Note ---
Assessment/Plan Assessment/Plan IMPRESSION: MRSA pneumonia. leukocytosis resovled, and improved hemodynamics and resolution of lactic acidosis. 1. Severe sepsis with multiorgan failure, improving, secondary to pneumonia IV vancomycin and meropenem, D#4 s/p recent admission for hypoxemic resp failure and pneumonia, treated with D#7 IV vanc/cefepime completed on 08Mar2017 ucx neg 03/12 blood cx ngtd at 72 hrs. 2. Bibasilar staph aureus pneumonia 3. Acute respiratory failure. 4. Acute renal failure. 5. Diabetes type 2 with hyperglycemia. 6. Dementia. 7. Methicillin resistant Staphylococcus aureus colonization. 8. r/o urosepsis 9. lactic acidosis, resolved RECOMMENDATION: --continue IV vancomycin D#4 of 10 --D/c meropenem now, D#4 --monitor blood cx --monitor CBC --monitor temp curve Subjective ROS Limited/Unobtainable: Yes Allergies: Coded Allergies: LORAZEPAM (Unverified Allergy, Unknown, 03/02/17) METOCLOPRAMIDE (Unverified Allergy, Unknown, 03/02/17) QUETIAPINE (Unverified Allergy, Unknown, 03/02/17) ZOLPIDEM (Unverified Allergy, Unknown, 03/02/17) Objective Vital Signs Last 24 Hour Vital Signs Date Time Temp Pulse Resp B/P (MAP) Pulse Ox O2 Delivery O2 Flow Rate FiO2 03/15/17 15:00 76 25 115/35 100 Mechanical Ventilator 30 03/15/17 14:00 74 25 110/34 100 Mechanical Ventilator 30 03/15/17 13:10 78 30 30 03/15/17 13:00 76 26 113/36 100 Mechanical Ventilator 30 03/15/17 12:00 74 03/15/17 12:00 30 03/15/17 12:00 99.1 76 26 118/38 100 Mechanical Ventilator 30 03/15/17 11:10 72 25 30 03/15/17 11:10 100 03/15/17 11:00 77 25 127/62 100 Mechanical Ventilator 30 03/15/17 10:00 83 20 120/44 100 Mechanical Ventilator 30 03/15/17 09:10 83 25 30 03/15/17 09:00 82 22 134/41 100 Mechanical Ventilator 30 03/15/17 08:00 89 03/15/17 08:00 30 03/15/17 08:00 99.1 88 18 119/44 100 Mechanical Ventilator 30 03/15/17 07:25 131/47 03/15/17 07:20 75 19 30 03/15/17 07:00 82 16 131/47 100 Mechanical Ventilator 30 03/15/17 06:00 87 16 130/61 100 Mechanical Ventilator 30 03/15/17 05:07 78 24 30 03/15/17 05:00 80 16 135/47 100 Mechanical Ventilator 30 03/15/17 04:00 30 03/15/17 04:00 75 03/15/17 04:00 99.3 82 18 120/42 100 Mechanical Ventilator 30 03/15/17 03:15 84 30 30 03/15/17 03:00 80 18 120/45 100 Mechanical Ventilator 03/15/17 02:00 72 18 131/41 100 Mechanical Ventilator 03/15/17 01:23 78 24 30 03/15/17 01:00 71 18 114/36 100 Mechanical Ventilator 03/15/17 00:00 72 20 106/37 100 Mechanical Ventilator 03/15/17 00:00 30 03/15/17 00:00 73 03/14/17 23:20 68 18 30 03/14/17 23:00 99.2 74 18 118/40 100 Mechanical Ventilator 03/14/17 22:00 74 18 135/65 100 Mechanical Ventilator 03/14/17 21:29 70 20 30 03/14/17 21:00 81 18 130/56 100 Mechanical Ventilator 03/14/17 20:00 30 03/14/17 20:00 67 03/14/17 20:00 99.5 67 16 110/87 99 Mechanical Ventilator 03/14/17 19:16 72 19 30 03/14/17 19:00 72 18 110/38 100 Mechanical Ventilator 03/14/17 18:00 71 18 114/42 100 Mechanical Ventilator 03/14/17 17:00 79 20 122/39 99 Mechanical Ventilator 30 03/14/17 16:50 87 26 30 03/14/17 16:00 67 03/14/17 16:00 99.2 67 16 116/37 99 Mechanical Ventilator 30 Height (Feet): 5 Height (Inches): 2.00 Weight (Pounds): 124 Objective gen: intubated, not currently sedated, opens eyes, fighting vent a bit heent: oral mucosa dry, sclera anicteric cv: rrr lungs: coarse rhonchi abd: G tube in place, soft, nttp ext: trace ble. R femoral TLC CVC. bue contractures, mild. gu: wayne in place skin: no rash, no petechiae. Microbiology Date/Time Source Procedure Growth Status 03/12/17 17:00 Sputum Gram Stain - Final Complete 03/12/17 17:00 Sputum Culture - Final Staphylococcus Aureus - Mrsa Usual Upper Respiratory Freida Complete 03/12/17 21:10 Rectum VRE Culture - Final NO VANCOMYCIN RESISTANT ENTEROCOCCUS ... Complete Patient : RACQUEL KELLER Referring Physician: ZAIRA ROSALES ID Number: [id number] Service Date: 03/15/17 : 1935 Report Date: 03/15/17 Gender: F Accession No.: [id number] Location: ICU Procedure: XRAY Chest 1v Indication: Dyspnea Comparison: 03/14/2017 A single view chest radiograph was obtained. Findings: Patchy infiltrates are noted at the lung bases. Heart size is normal. Endotracheal tube is just above the pema. Impression: No significant body coverer the last day. Laboratory Tests Test 03/14/17 16:40 03/15/17 04:15 Vancomycin Level Trough 12.2 ug/mL (5.0-12.0) H White Blood Count 9.0 K/UL (4.8-10.8) Red Blood Count 2.34 M/UL (4.20-5.40) L Hemoglobin 8.2 G/DL (12.0-16.0) L Hematocrit 24.0 % (37.0-47.0) L Mean Corpuscular Volume 103 FL (80-99) H Mean Corpuscular Hemoglobin 35.1 PG (27.0-31.0) H Mean Corpuscular Hemoglobin Concent 34.2 G/DL (32.0-36.0) Red Cell Distribution Width 13.0 % (11.6-14.8) Platelet Count 227 K/UL (150-450) Mean Platelet Volume 11.4 FL (6.5-10.1) H Neutrophils (%) (Auto) 82.0 % (45.0-75.0) H Lymphocytes (%) (Auto) 8.8 % (20.0-45.0) L Monocytes (%) (Auto) 5.9 % (1.0-10.0) Eosinophils (%) (Auto) 2.5 % (0.0-3.0) Basophils (%) (Auto) 0.8 % (0.0-2.0) Sodium Level 141 mEQ/L (135-145) Potassium Level 4.3 mEQ/L (3.4-4.9) Chloride Level 107 mEQ/L (98-107) Carbon Dioxide Level 24 mEQ/L (20-30) Anion Gap 10 (5-15) Blood Urea Nitrogen 21 mg/dL (7-23) Creatinine 0.7 mg/dL (0.5-0.9) Estimat Glomerular Filtration Rate mL/min (>60) Glucose Level 316 mg/dL (74-106) H Uric Acid 2.9 mg/dL (3.0-7.5) L Calcium Level 8.0 mg/dL (8.6-10.2) L Phosphorus Level 2.7 mg/dL (2.5-4.8) Magnesium Level 2.1 mg/dL (1.7-2.5) Total Bilirubin 0.4 mg/dL (0.0-1.2) Aspartate Amino Transf (AST/SGOT) 43 U/L (5-40) H Alanine Aminotransferase (ALT/SGPT) 20 U/L (3-33) Alkaline Phosphatase 156 U/L (35-104) H C-Reactive Protein, Quantitative 9.1 mg/dL (< 0.5) H Pro-B-Type Natriuretic Peptide 1503 pg/mL (0-450) H Total Protein 5.3 g/dL (6.6-8.7) L Albumin 1.9 g/dL (3.5-5.2) L Globulin 3.4 g/dL Albumin/Globulin Ratio 0.5 (1.0-2.7) L Current Medications Medications (Trade) Dose Ordered Sig/Ramiro Route PRN Reason Start Time Stop Time Status Last Admin Dose Admin Acetaminophen (Tylenol) 650 mg Q4H PRN ORAL fever>100.5 03/12/17 07:30 04/11/17 07:29 Albuterol/ Ipratropium (DuoNeb 0.5-3(2.5)mg/3ml) 3 ml Q4H PRN HHN Shortness of Breath 03/12/17 07:30 03/17/17 07:29 Chlorhexidine Gluconate (Halie-Hex 2%) 1 applic BIOTEC TOPIC 03/13/17 21:00 04/12/17 20:59 03/14/17 20:18 Dextrose (Dextrose 50%) STAT PRN IV Hypoglycemia 03/12/17 10:00 04/11/17 09:59 Famotidine (Pepcid I.v.) 20 mg DAILY IVP 03/13/17 10:00 04/12/17 09:59 03/15/17 08:38 Heparin Sodium (Porcine) (Heparin 5000 units/ml) 5,000 units EVERY 12 HOURS SUBQ 03/12/17 09:00 04/11/17 08:59 03/15/17 08:41 Insulin Aspart (NovoLOG) Q4H SUBQ 03/12/17 12:00 04/11/17 11:59 03/15/17 11:34 Insulin Detemir (Levemir) 5 units DAILY SUBQ 03/15/17 14:00 04/14/17 13:59 03/15/17 14:25 Meropenem 1 gm/ Sodium Chloride 110 ml @ 220 mls/hr Q12HR IVPB 03/14/17 21:00 03/19/17 20:59 03/15/17 08:38 Morphine Sulfate (Morphine Sulfate) 4 mg Q4H PRN IVP Severe Pain (Pain Scale 7-10) 03/12/17 07:30 03/19/17 07:29 Norepinephrine Bitartrate 4 mg/ Dextrose 254 ml @ 0 mls/hr Q24H IV 03/12/17 07:30 04/11/17 07:29 Ondansetron HCl (Zofran) 4 mg Q6H PRN IVP Nausea & Vomiting 03/12/17 07:30 04/11/17 07:29 Polyethylene Glycol (Miralax) 17 gm DAILYPRN PRN ORAL Constipation 03/12/17 07:30 04/11/17 07:29 Vancomycin HCl (Vanco rx to dose) 1 ea DAILY PRN MISC PER RX PROTOCOL 03/13/17 11:30 04/12/17 11:29 Vancomycin/Sodium Chloride 250 ml @ 166.667 mls/hr Q24H IVPB 03/13/17 17:00 03/18/17 16:59 03/14/17 17:30 Paul Amaya M.D. Mar 15, 2017 15:29
[2017-03-15] MEDS: Vancomycin 750mg/NS 250ml IVPB SCH (16:22)
--- NOTE | 2017-03-15 16:30 | General Progress Note ---
Assessment/Plan Assessment/Plan 1. Leukocytosis, secondary to underlying sepsis. Continue monitoring. -->resolved --> on abx per id service 2. Anemia secondary to chronic disease. Ferritin is elevated, TIBC is low. --> transfuse if hgb is less than 8 --> monitor counts 4. Coagulopathy, potentially secondary to underlying sepsis as well. PTT is elevated. Prothrombin time is elevated. 5. Methicillin-resistant Staphylococcus aureus colonization. 6. Respiratory failure, status post intubation. 7. Acute kidney injury. --> nephrology following Subjective Constitutional: Reports: no symptoms HEENT: Reports: no symptoms Cardiovascular: Reports: no symptoms Respiratory: Reports: no symptoms Gastrointestinal/Abdominal: Reports: no symptoms Genitourinary: Reports: no symptoms Neurologic/Psychiatric: Reports: no symptoms Endocrine: Reports: no symptoms Hematologic/Lymphatic: Reports: anemia Allergies: Coded Allergies: LORAZEPAM (Unverified Allergy, Unknown, 03/02/17) METOCLOPRAMIDE (Unverified Allergy, Unknown, 03/02/17) QUETIAPINE (Unverified Allergy, Unknown, 03/02/17) ZOLPIDEM (Unverified Allergy, Unknown, 03/02/17) Subjective no bleeding, afebrile, no major changes Objective Last 24 Hour Vital Signs Date Time Temp Pulse Resp B/P (MAP) Pulse Ox O2 Delivery O2 Flow Rate FiO2 03/15/17 16:00 30 03/15/17 15:10 74 29 30 03/15/17 15:00 76 25 115/35 100 Mechanical Ventilator 30 03/15/17 14:00 74 25 110/34 100 Mechanical Ventilator 30 03/15/17 13:10 78 30 30 03/15/17 13:00 76 26 113/36 100 Mechanical Ventilator 30 03/15/17 12:00 74 03/15/17 12:00 30 03/15/17 12:00 99.1 76 26 118/38 100 Mechanical Ventilator 30 03/15/17 11:10 72 25 30 03/15/17 11:10 100 03/15/17 11:00 77 25 127/62 100 Mechanical Ventilator 30 03/15/17 10:00 83 20 120/44 100 Mechanical Ventilator 30 03/15/17 09:10 83 25 30 03/15/17 09:00 82 22 134/41 100 Mechanical Ventilator 30 03/15/17 08:00 89 03/15/17 08:00 30 03/15/17 08:00 99.1 88 18 119/44 100 Mechanical Ventilator 30 03/15/17 07:25 131/47 03/15/17 07:20 75 19 30 03/15/17 07:00 82 16 131/47 100 Mechanical Ventilator 30 03/15/17 06:00 87 16 130/61 100 Mechanical Ventilator 30 03/15/17 05:07 78 24 30 03/15/17 05:00 80 16 135/47 100 Mechanical Ventilator 30 03/15/17 04:00 30 03/15/17 04:00 75 03/15/17 04:00 99.3 82 18 120/42 100 Mechanical Ventilator 30 03/15/17 03:15 84 30 30 03/15/17 03:00 80 18 120/45 100 Mechanical Ventilator 30 03/15/17 02:00 72 18 131/41 100 Mechanical Ventilator 30 03/15/17 01:23 78 24 30 03/15/17 01:00 71 18 114/36 100 Mechanical Ventilator 30 03/15/17 00:00 72 20 106/37 100 Mechanical Ventilator 30 03/15/17 00:00 30 03/15/17 00:00 73 03/14/17 23:20 68 18 30 03/14/17 23:00 99.2 74 18 118/40 100 Mechanical Ventilator 30 03/14/17 22:00 74 18 135/65 100 Mechanical Ventilator 30 03/14/17 21:29 70 20 30 03/14/17 21:00 81 18 130/56 100 Mechanical Ventilator 03/14/17 20:00 30 03/14/17 20:00 67 03/14/17 20:00 99.5 67 16 110/87 99 Mechanical Ventilator 30 03/14/17 19:16 72 19 30 03/14/17 19:00 72 18 110/38 100 Mechanical Ventilator 30 03/14/17 18:00 71 18 114/42 100 Mechanical Ventilator 30 03/14/17 17:00 79 20 122/39 99 Mechanical Ventilator 30 03/14/17 16:50 87 26 30 Intake and Output 03/15/17 03/16/17 19:00 07:00 Intake Total 595 ml Output Total 420 ml Balance 175 ml Free Water 30 ml IV Total 160 ml Tube Feeding 405 ml Output Urine Total 420 ml Laboratory Tests 03/14/17 16:40: Vancomycin Level Trough 12.2H 03/15/17 04:15: White Blood Count 9.0, Red Blood Count 2.34L, Hemoglobin 8.2L, Hematocrit 24.0L , Mean Corpuscular Volume 103H, Mean Corpuscular Hemoglobin 35.1H, Mean Corpuscular Hemoglobin Concent 34.2, Red Cell Distribution Width 13.0, Platelet Count 227, Mean Platelet Volume 11.4H, Neutrophils (%) (Auto) 82.0H, Lymphocytes (%) (Auto) 8.8L, Monocytes (%) (Auto) 5.9, Eosinophils (%) (Auto) 2.5, Basophils (%) (Auto) 0.8, Sodium Level 141, Potassium Level 4.3, Chloride Level 107, Carbon Dioxide Level 24, Anion Gap 10, Blood Urea Nitrogen 21, Creatinine 0.7, Estimat Glomerular Filtration Rate , Glucose Level 316H, Uric Acid 2.9L, Calcium Level 8.0L, Phosphorus Level 2.7, Magnesium Level 2.1, Total Bilirubin 0.4, Aspartate Amino Transf (AST/SGOT) 43H, Alanine Aminotransferase ( ALT/SGPT) 20, Alkaline Phosphatase 156H, C-Reactive Protein, Quantitative 9.1H, Pro-B-Type Natriuretic Peptide 1503H, Total Protein 5.3L, Albumin 1.9L, Globulin 3.4, Albumin/Globulin Ratio 0.5L Height (Feet): 5 Height (Inches): 2.00 Weight (Pounds): 124 General Appearance: no apparent distress EENT: normal ENT inspection Neck: normal inspection Cardiovascular: regular rhythm Neurologic: stapler coil unit II-XII grossly normal Skin: warm/dry Saul Luque Mar 15, 2017 16:30
[2017-03-15 16:46] LABS: ABG ALLEN TEST POSITIVE; ABG BASE EXCESS 1.9; ABG PCO2 35.3 mmHg (35.0-45.0)
[2017-03-15] MEDS ORDERED: NS 275ml ONE (17:20)
[2017-03-15] MEDS ORDERED: Tubing IV Secondary IV ONE (17:20)
[2017-03-15] MEDS: Artificial Tears 1.4% Op Soln BOTH EYES PRN (18:48)
[2017-03-15] MEDS: Dyna-Hex 2% Top Sol 8oz TOPIC SCH (20:44)
[2017-03-16] VITALS (24 sets, daily range): BP systolic 97–139; BP diastolic 34–75
[2017-03-16] MEDS: Artificial Tears 1.4% Op Soln BOTH EYES PRN (00:54)
[2017-03-16] MEDS: NovoLOG Insulin Flexpen SUBQ SCH ×5 (03:54→20:10)
[2017-03-16 05:50] LABS: MEAN CORPUSCULAR HGB CONC 35.1 G/DL (32.0-36.0); MEAN CORPUSCULAR VOLUME 103 FL (80-99); MEAN PLATELET VOLUME 11.1 FL (6.5-10.1); PLATELET COUNT 242 K/UL (150-450); RED BLOOD COUNT 2.16 M/UL (4.20-5.40); RED CELL DISTRIBUTION WIDTH 12.9 % (11.6-14.8); WHITE BLOOD COUNT 7.3 K/UL (4.8-10.8)
[2017-03-16 06:18] LABS: ALANINE AMINOTRANSFERASE 22 U/L (3-33); ALBUMIN/GLOBULIN RATIO 0.5 (1.0-2.7); ANION GAP 8 (5-15); ASPARTATE AMINO TRANSFERASE 47 U/L (5-40); CALCIUM 8.6 mg/dL (8.6-10.2); CARBON DIOXIDE 24 mEQ/L (20-30); CHLORIDE 109 mEQ/L (98-107); CREATININE 0.5 mg/dL (0.5-0.9); HEMOLYSIS 1; POTASSIUM 4.5 mEQ/L (3.4-4.9); SODIUM 141 mEQ/L (135-145); TOTAL PROTEIN 5.2 g/dL (6.6-8.7)
[2017-03-16] MEDS: Famotidine 20 MG/ 2ML VIAL IVP SCH (08:31)
[2017-03-16] MEDS: Heparin 5000 units/ml inj SUBQ SCH ×2 (08:32→20:10)
[2017-03-16] MEDS: Levemir Flexpen SUBQ SCH (08:34)
[2017-03-16 08:48] LABS: ABG PCO2 36.4 mmHg (35.0-45.0)
[2017-03-16 08:49] LABS: ABG ALLEN TEST POSITIVE; ABG BASE EXCESS 2.4
--- NOTE | 2017-03-16 08:57 | Diagnostic Imaging Report ---
Indication: Dyspnea Comparison: 03/15/17 A single view chest radiograph was obtained. Findings: Patchy airspace disease demonstrated within the lungs. Heart size is normal. Endotracheal tube position is improved. Impression: Endotracheal tube in good position without change otherwise.
--- NOTE | 2017-03-16 13:10 | Infectious Diseases Prog Note ---
Assessment/Plan Assessment/Plan IMPRESSION: MRSA pneumonia. leukocytosis resolved, and improved hemodynamics and resolution of lactic acidosis. 1. Severe sepsis with multiorgan failure, improving, secondary to pneumonia s/p recent admission for hypoxemic resp failure and pneumonia, treated with D#7 IV vanc/cefepime completed on [id number] 03/12 ucx neg 03/12 blood cx ngtd at 72 hrs. 2. Bibasilar staph aureus pneumonia 3. Acute respiratory failure. 4. Acute renal failure. 5. Diabetes type 2 with hyperglycemia. 6. Dementia. 7. Methicillin resistant Staphylococcus aureus colonization. 8. r/o urosepsis 9. lactic acidosis, resolved RECOMMENDATION: --continue IV vancomycin D#5 of 10 (03/15 s/p IV meropenem D#4) --monitor blood cx --monitor CBC --monitor temp curve Subjective ROS Limited/Unobtainable: Yes Allergies: Coded Allergies: LORAZEPAM (Unverified Allergy, Unknown, 03/02/17) METOCLOPRAMIDE (Unverified Allergy, Unknown, 03/02/17) QUETIAPINE (Unverified Allergy, Unknown, 03/02/17) ZOLPIDEM (Unverified Allergy, Unknown, 03/02/17) Objective Vital Signs Last 24 Hour Vital Signs Date Time Temp Pulse Resp B/P (MAP) Pulse Ox O2 Delivery O2 Flow Rate FiO2 03/16/17 12:03 69 03/16/17 12:00 98.4 69 22 139/65 94 Mechanical Ventilator 30 03/16/17 11:15 30 03/16/17 11:05 74 18 30 03/16/17 11:00 81 22 122/44 93 Mechanical Ventilator 30 03/16/17 10:03 76 23 127/46 100 Mechanical Ventilator 30 03/16/17 09:20 71 24 30 03/16/17 09:20 98 03/16/17 09:00 81 23 124/48 100 Mechanical Ventilator 30 03/16/17 08:00 82 03/16/17 08:00 30 03/16/17 08:00 82 23 129/45 100 Mechanical Ventilator 30 03/16/17 07:30 98.5 80 32 101/40 100 Mechanical Ventilator 30 03/16/17 07:30 129/45 03/16/17 07:10 64 19 30 03/16/17 06:00 67 18 130/38 100 Mechanical Ventilator 30 03/16/17 05:05 71 18 30 03/16/17 05:00 71 18 110/48 99 Mechanical Ventilator 30 03/16/17 04:00 30 03/16/17 04:00 75 18 121/51 95 Mechanical Ventilator 30 03/16/17 04:00 75 03/16/17 03:08 76 18 30 03/16/17 03:00 69 18 111/40 100 Mechanical Ventilator 30 03/16/17 02:00 68 18 103/36 98 Mechanical Ventilator 30 03/16/17 01:11 65 18 30 03/16/17 01:00 81 23 100/45 100 Mechanical Ventilator 30 03/16/17 00:00 79 03/16/17 00:00 98.3 79 18 112/42 98 Mechanical Ventilator 30 03/16/17 00:00 30 03/15/17 23:12 67 18 30 03/15/17 23:00 74 20 131/44 100 Mechanical Ventilator 30 03/15/17 22:00 72 18 126/50 100 Mechanical Ventilator 30 03/15/17 21:08 68 18 30 03/15/17 21:00 75 21 123/67 96 Mechanical Ventilator 30 03/15/17 20:00 74 03/15/17 20:00 98.5 74 18 120/47 99 Mechanical Ventilator 30 03/15/17 20:00 30 03/15/17 19:05 72 26 30 03/15/17 19:00 73 18 121/63 100 Mechanical Ventilator 30 03/15/17 18:00 74 18 127/102 100 Mechanical Ventilator 30 03/15/17 17:00 84 26 30 03/15/17 17:00 73 24 131/70 100 Mechanical Ventilator 30 03/15/17 16:00 80 03/15/17 16:00 30 03/15/17 16:00 98.8 77 30 124/46 100 Mechanical Ventilator 30 03/15/17 15:10 74 29 30 03/15/17 15:00 76 25 115/35 100 Mechanical Ventilator 30 03/15/17 14:00 74 25 110/34 100 Mechanical Ventilator 30 03/15/17 13:10 78 30 30 Height (Feet): 5 Height (Inches): 2.00 Weight (Pounds): 130 Objective gen: intubated, not currently sedated, opens eyes, fighting vent a bit heent: oral mucosa dry, sclera anicteric cv: rrr lungs: coarse rhonchi abd: G tube in place, soft, nttp ext: trace ble. R femoral TLC CVC. bue contractures, mild. gu: wayne in place skin: no rash, no petechiae. Laboratory Tests Test 03/16/17 03:15 03/16/17 03:45 03/16/17 08:42 White Blood Count 7.3 K/UL (4.8-10.8) Red Blood Count 2.16 M/UL (4.20-5.40) L Hemoglobin 7.8 G/DL (12.0-16.0) L Hematocrit 22.1 % (37.0-47.0) L Mean Corpuscular Volume 103 FL (80-99) H Mean Corpuscular Hemoglobin 36.0 PG (27.0-31.0) H Mean Corpuscular Hemoglobin Concent 35.1 G/DL (32.0-36.0) Red Cell Distribution Width 12.9 % (11.6-14.8) Platelet Count 242 K/UL (150-450) Mean Platelet Volume 11.1 FL (6.5-10.1) H Neutrophils (%) (Auto) % (45.0-75.0) Lymphocytes (%) (Auto) % (20.0-45.0) Monocytes (%) (Auto) % (1.0-10.0) Eosinophils (%) (Auto) % (0.0-3.0) Basophils (%) (Auto) % (0.0-2.0) Sodium Level 141 mEQ/L (135-145) Potassium Level 4.5 mEQ/L (3.4-4.9) Chloride Level 109 mEQ/L (98-107) H Carbon Dioxide Level 24 mEQ/L (20-30) Anion Gap 8 (5-15) Blood Urea Nitrogen 23 mg/dL (7-23) Creatinine 0.5 mg/dL (0.5-0.9) Estimat Glomerular Filtration Rate mL/min (>60) Glucose Level 176 mg/dL (74-106) #H Calcium Level 8.6 mg/dL (8.6-10.2) Phosphorus Level 2.0 mg/dL (2.5-4.8) L Magnesium Level 2.0 mg/dL (1.7-2.5) Total Bilirubin 0.3 mg/dL (0.0-1.2) Aspartate Amino Transf (AST/SGOT) 47 U/L (5-40) H Alanine Aminotransferase (ALT/SGPT) 22 U/L (3-33) Alkaline Phosphatase 136 U/L (35-104) H Total Protein 5.2 g/dL (6.6-8.7) L Albumin 1.9 g/dL (3.5-5.2) L Globulin 3.3 g/dL Albumin/Globulin Ratio 0.5 (1.0-2.7) L Arterial Blood pH 7.473 (7.350-7.450) Arterial Blood Partial Pressure CO2 36.4 mmHg (35.0-45.0) Arterial Blood Partial Pressure O2 76.5 mmHg (75.0-100.0) Arterial Blood HCO3 26.1 mmol/L (22.0-26.0) H Arterial Blood Oxygen Saturation 93.6 % (92.0-98.0) Arterial Blood Base Excess 2.4 Shaun Test Positive Current Medications Medications (Trade) Dose Ordered Sig/Ramiro Route PRN Reason Start Time Stop Time Status Last Admin Dose Admin Acetaminophen (Tylenol) 650 mg Q4H PRN ORAL fever>100.5 03/12/17 07:30 04/11/17 07:29 Albuterol/ Ipratropium (DuoNeb 0.5-3(2.5)mg/3ml) 3 ml Q4H PRN HHN Shortness of Breath 03/12/17 07:30 03/17/17 07:29 Artificial Tears (Akwa-Tears) 2 drop Q2H PRN BOTH EYES Dry Eyes 03/15/17 16:30 04/14/17 16:29 03/16/17 00:54 Chlorhexidine Gluconate (Halie-Hex 2%) 1 applic BIOTEC TOPIC 03/13/17 21:00 04/12/17 20:59 03/15/17 20:44 Dextrose (Dextrose 50%) STAT PRN IV Hypoglycemia 03/12/17 10:00 04/11/17 09:59 Famotidine (Pepcid I.v.) 20 mg DAILY IVP 03/13/17 10:00 04/12/17 09:59 03/16/17 08:31 Heparin Sodium (Porcine) (Heparin 5000 units/ml) 5,000 units EVERY 12 HOURS SUBQ 03/12/17 09:00 04/11/17 08:59 03/16/17 08:32 Insulin Aspart (NovoLOG) Q4H SUBQ 03/12/17 12:00 04/11/17 11:59 03/16/17 11:33 Insulin Detemir (Levemir) 5 units DAILY SUBQ 03/15/17 14:00 04/14/17 13:59 03/16/17 08:34 Morphine Sulfate (Morphine Sulfate) 4 mg Q4H PRN IVP Severe Pain (Pain Scale 7-10) 03/12/17 07:30 03/19/17 07:29 03/15/17 18:48 Norepinephrine Bitartrate 4 mg/ Dextrose 254 ml @ 0 mls/hr Q24H IV 03/12/17 07:30 04/11/17 07:29 Ondansetron HCl (Zofran) 4 mg Q6H PRN IVP Nausea & Vomiting 03/12/17 07:30 04/11/17 07:29 Polyethylene Glycol (Miralax) 17 gm DAILYPRN PRN ORAL Constipation 03/12/17 07:30 04/11/17 07:29 Vancomycin HCl (Vanco rx to dose) 1 ea DAILY PRN MISC PER RX PROTOCOL 03/13/17 11:30 04/12/17 11:29 Vancomycin/Sodium Chloride 250 ml @ 166.667 mls/hr Q24H IVPB 03/13/17 17:00 03/18/17 16:59 03/15/17 16:22 Paul Amaya M.D. Mar 16, 2017 13:10
--- NOTE | 2017-03-16 13:21 | General Progress Note ---
Assessment/Plan Status: stable Assessment/Plan Respiratory failure requiring intubation Severe sepsis secondary to pneumonia, resolving UTI Acute cystitis without hematuria Pneumonia, non cavitary, w/o effusion Dementia Acute renal failure , Dehydration Hypoxemic respiratory failure Type 2 diabetes mellitus with hyperglycemia Proteinuria Plan: Pulm support- Stop IV Na Phos IV Monitor renal parameters Urine studies- Avoid Nephrotoxics- Per Orders Subjective ROS Limited/Unobtainable: Yes Allergies: Coded Allergies: LORAZEPAM (Unverified Allergy, Unknown, 03/02/17) METOCLOPRAMIDE (Unverified Allergy, Unknown, 03/02/17) QUETIAPINE (Unverified Allergy, Unknown, 03/02/17) ZOLPIDEM (Unverified Allergy, Unknown, 03/02/17) Objective Last 24 Hour Vital Signs Date Time Temp Pulse Resp B/P (MAP) Pulse Ox O2 Delivery O2 Flow Rate FiO2 03/16/17 12:03 69 03/16/17 12:00 98.4 69 22 139/65 94 Mechanical Ventilator 30 03/16/17 11:15 30 03/16/17 11:05 74 18 30 03/16/17 11:00 81 22 122/44 93 Mechanical Ventilator 30 03/16/17 10:03 76 23 127/46 100 Mechanical Ventilator 30 03/16/17 09:20 71 24 30 03/16/17 09:20 98 03/16/17 09:00 81 23 124/48 100 Mechanical Ventilator 30 03/16/17 08:00 82 03/16/17 08:00 30 03/16/17 08:00 82 23 129/45 100 Mechanical Ventilator 30 03/16/17 07:30 98.5 80 32 101/40 100 Mechanical Ventilator 30 03/16/17 07:30 129/45 03/16/17 07:10 64 19 30 03/16/17 06:00 67 18 130/38 100 Mechanical Ventilator 30 03/16/17 05:05 71 18 30 03/16/17 05:00 71 18 110/48 99 Mechanical Ventilator 30 03/16/17 04:00 30 03/16/17 04:00 75 18 121/51 95 Mechanical Ventilator 30 03/16/17 04:00 75 03/16/17 03:08 76 18 30 03/16/17 03:00 69 18 111/40 100 Mechanical Ventilator 30 03/16/17 02:00 68 18 103/36 98 Mechanical Ventilator 30 03/16/17 01:11 65 18 30 03/16/17 01:00 81 23 100/45 100 Mechanical Ventilator 30 03/16/17 00:00 79 03/16/17 00:00 98.3 79 18 112/42 98 Mechanical Ventilator 30 03/16/17 00:00 30 03/15/17 23:12 67 18 30 03/15/17 23:00 74 20 131/44 100 Mechanical Ventilator 30 03/15/17 22:00 72 18 126/50 100 Mechanical Ventilator 30 03/15/17 21:08 68 18 30 03/15/17 21:00 75 21 123/67 96 Mechanical Ventilator 30 03/15/17 20:00 74 03/15/17 20:00 98.5 74 18 120/47 99 Mechanical Ventilator 30 03/15/17 20:00 30 03/15/17 19:05 72 26 30 03/15/17 19:00 73 18 121/63 100 Mechanical Ventilator 30 03/15/17 18:00 74 18 127/102 100 Mechanical Ventilator 30 03/15/17 17:00 84 26 30 03/15/17 17:00 73 24 131/70 100 Mechanical Ventilator 30 03/15/17 16:00 80 03/15/17 16:00 30 03/15/17 16:00 98.8 77 30 124/46 100 Mechanical Ventilator 30 03/15/17 15:10 74 29 30 03/15/17 15:00 76 25 115/35 100 Mechanical Ventilator 30 03/15/17 14:00 74 25 110/34 100 Mechanical Ventilator 30 Intake and Output 03/16/17 03/17/17 19:00 07:00 Intake Total 320 ml Output Total 200 ml Balance 120 ml Free Water 50 ml Tube Feeding 270 ml Output Urine Total 200 ml Laboratory Tests 03/16/17 03:15: White Blood Count 7.3, Red Blood Count 2.16L, Hemoglobin 7.8L, Hematocrit 22.1L , Mean Corpuscular Volume 103H, Mean Corpuscular Hemoglobin 36.0H, Mean Corpuscular Hemoglobin Concent 35.1, Red Cell Distribution Width 12.9, Platelet Count 242, Mean Platelet Volume 11.1H, Neutrophils (%) (Auto) , Lymphocytes (%) (Auto) , Monocytes (%) (Auto) , Eosinophils (%) (Auto) , Basophils (%) (Auto) 03/16/17 03:45: Sodium Level 141, Potassium Level 4.5, Chloride Level 109H, Carbon Dioxide Level 24, Anion Gap 8, Blood Urea Nitrogen 23, Creatinine 0.5, Estimat Glomerular Filtration Rate , Glucose Level 176#H, Calcium Level 8.6, Phosphorus Level 2.0L, Magnesium Level 2.0, Total Bilirubin 0.3, Aspartate Amino Transf ( AST/SGOT) 47H, Alanine Aminotransferase (ALT/SGPT) 22, Alkaline Phosphatase 136H , Total Protein 5.2L, Albumin 1.9L, Globulin 3.3, Albumin/Globulin Ratio 0.5L 03/16/17 08:42: Arterial Blood pH 7.473H, Arterial Blood Partial Pressure CO2 36.4, Arterial Blood Partial Pressure O2 76.5, Arterial Blood HCO3 26.1H, Arterial Blood Oxygen Saturation 93.6, Arterial Blood Base Excess 2.4, Shaun Test Positive Height (Feet): 5 Height (Inches): 2.00 Weight (Pounds): 130 General Appearance: no apparent distress Objective PE not changed IRWIN DAMON Mar 16, 2017 13:21
--- NOTE | 2017-03-16 14:51 | Pulmonolgy Critical Care Note ---
Critical Care - Asmt/Plan Assessment/Plan: ASSESSMENT Severe sepsis with MOF Acute hypoxemic respiratory failure requiring intubation Bilateral PNA with Staph aureus UTI ARF, likely due to dehydration- resolved Dehydration Hyperglycemia due to DM DM type 2 Lactic acidosis- resolved Hypernatremia due to dehydration, resolved Advanced dementia Dysphagia G tube Anemia of chronic disease, requiring transfusion Hypokalemia PLAN OF CARE ICU care Vent support Pulmonary toilet Fup daily CXR ABG Weaning protocol continue. per discussion with supervising physician, not ready for extubation yet Abx ID follows urine cx, blood cx 1/4 +GPC in clsuters, likely contaminant, sputum cx + Staph aureus s/p IVF Nephro follows ARF and hyper Na resolved, likely due to dehydration renal US with R echogenic kidney, suggesting long standing renal artery stenosis , ECHO with EF 65% and RVSP of 37 K stable after replacement nephro follows Anemia workup c/w anemia of chronic disease, Transfuse 1 u PRBC today Heme follows BS management with Levemir and SS of insulin prn , BS improving, [id number] Strict aspiration precautions, G tube feeding, monitor tolerance DVT GI prophylaxis case discussed and evaluated by supervising physician Critical Care - Objective Last 24 Hour Vital Signs Date Time Temp Pulse Resp B/P (MAP) Pulse Ox O2 Delivery O2 Flow Rate FiO2 03/16/17 14:00 71 22 102/36 99 Mechanical Ventilator 30 03/16/17 13:00 73 22 98/40 98 Mechanical Ventilator 30 03/16/17 12:03 69 03/16/17 12:00 98.4 69 22 139/65 94 Mechanical Ventilator 30 03/16/17 11:15 30 03/16/17 11:05 74 18 30 03/16/17 11:00 81 22 122/44 93 Mechanical Ventilator 30 03/16/17 10:03 76 23 127/46 100 Mechanical Ventilator 30 03/16/17 09:20 71 24 30 03/16/17 09:20 98 03/16/17 09:00 81 23 124/48 100 Mechanical Ventilator 30 03/16/17 08:00 82 03/16/17 08:00 30 03/16/17 08:00 82 23 129/45 100 Mechanical Ventilator 30 03/16/17 07:30 98.5 80 32 101/40 100 Mechanical Ventilator 30 03/16/17 07:30 129/45 03/16/17 07:10 64 19 30 03/16/17 06:00 67 18 130/38 100 Mechanical Ventilator 30 03/16/17 05:05 71 18 30 03/16/17 05:00 71 18 110/48 99 Mechanical Ventilator 30 03/16/17 04:00 30 03/16/17 04:00 75 18 121/51 95 Mechanical Ventilator 30 03/16/17 04:00 75 03/16/17 03:08 76 18 30 03/16/17 03:00 69 18 111/40 100 Mechanical Ventilator 30 03/16/17 02:00 68 18 103/36 98 Mechanical Ventilator 30 03/16/17 01:11 65 18 30 03/16/17 01:00 81 23 100/45 100 Mechanical Ventilator 30 03/16/17 00:00 79 03/16/17 00:00 98.3 79 18 112/42 98 Mechanical Ventilator 30 03/16/17 00:00 30 03/15/17 23:12 67 18 30 03/15/17 23:00 74 20 131/44 100 Mechanical Ventilator 30 03/15/17 22:00 72 18 126/50 100 Mechanical Ventilator 30 03/15/17 21:08 68 18 30 03/15/17 21:00 75 21 123/67 96 Mechanical Ventilator 30 03/15/17 20:00 74 03/15/17 20:00 98.5 74 18 120/47 99 Mechanical Ventilator 30 03/15/17 20:00 30 03/15/17 19:05 72 26 30 03/15/17 19:00 73 18 121/63 100 Mechanical Ventilator 30 03/15/17 18:00 74 18 127/102 100 Mechanical Ventilator 30 03/15/17 17:00 84 26 30 03/15/17 17:00 73 24 131/70 100 Mechanical Ventilator 30 03/15/17 16:00 80 03/15/17 16:00 30 03/15/17 16:00 98.8 77 30 124/46 100 Mechanical Ventilator 30 03/15/17 15:10 74 29 30 03/15/17 15:00 76 25 115/35 100 Mechanical Ventilator 30 Status: awake, other - intubated Condition: critical HEENT: atraumatic, normocephalic, other - OP with ET in palce, intact Lungs: rhonchi - scattered Heart: HR/BP stable Abdomen: soft, non-tender, active bowel sounds, feeding tube - G tube Extremities: no C/C/E Accucheck: 223 Critical Care - Subjective ROS Limited/Unobtainable: Yes Interval Events: leukocytosis resolved, afebrile no signs of respiratory distress on current settings tolerates CPAP mode HH trending down - 7.8/22.1 Condition: critical IV Access: peripheral EKG Rhythm: Sinus Rhythm FI02: 30 Vent Support Breath Rate: 18 Vent Support Mode: AC Vent Tidal Volume: 500 Sputum Amount: Scant PEEP: 5.0 PIP: 23 Tube Feeding Amount: 45 I&O: Intake and Output 03/16/17 03/17/17 19:00 07:00 Intake Total 410 ml Output Total 250 ml Balance 160 ml Free Water 50 ml Tube Feeding 360 ml Output Urine Total 250 ml CXR: 03/16 Patchy airspace disease demonstrated within the lungs. Heart size is normal. Endotracheal tube position is improved. ET-Tube: 7.0 ET Position: 22 Yuri (KarynKathy kelsey NP Mar 16, 2017 14:51
[2017-03-16] MEDS ORDERED: Sodium Phosphate 30 MM in NS 275 ML IVPB ONE (15:00)
[2017-03-16] MEDS ORDERED: NS 275ml ONE (15:28)
[2017-03-16] MEDS ORDERED: DuoNeb 0.5-3(2.5)mg/3ml neb HHN PRN (16:00)
[2017-03-16] MEDS: Vancomycin 750mg/NS 250ml 250 ML IVPB SCH (16:54)
[2017-03-17] VITALS (24 sets, daily range): BP systolic 106–149; BP diastolic 35–79
[2017-03-17] MEDS: NovoLOG Insulin Flexpen SUBQ SCH ×7 (00:12→23:44)
[2017-03-17 05:11] LABS: BASOPHILS % (AUTO) 2.5 % (0.0-2.0); EOSINOPHILS % (AUTO) 3.1 % (0.0-3.0); LYMPHOCYTES % (AUTO) 16.8 % (20.0-45.0); MEAN CORPUSCULAR HEMOGLOBIN 34.1 PG (27.0-31.0); MEAN CORPUSCULAR HGB CONC 34.1 G/DL (32.0-36.0); MEAN CORPUSCULAR VOLUME 100 FL (80-99); MEAN PLATELET VOLUME 10.3 FL (6.5-10.1); MONOCYTES % (AUTO) 14.1 % (1.0-10.0); NEUTROPHILS % (AUTO) 63.5 % (45.0-75.0); PLATELET COUNT 223 K/UL (150-450); RED BLOOD COUNT 2.75 M/UL (4.20-5.40); RED CELL DISTRIBUTION WIDTH 13.7 % (11.6-14.8); WHITE BLOOD COUNT 6.5 K/UL (4.8-10.8)
[2017-03-17 05:37] LABS: ANION GAP 10 (5-15); CALCIUM 8.7 mg/dL (8.6-10.2); CARBON DIOXIDE 26 mEQ/L (20-30); CHLORIDE 107 mEQ/L (98-107); CREATININE 0.6 mg/dL (0.5-0.9); HEMOLYSIS 5; POTASSIUM 4.1 mEQ/L (3.4-4.9); SODIUM 143 mEQ/L (135-145)
--- NOTE | 2017-03-17 07:55 | Pulmonolgy Critical Care Note ---
Critical Care - Asmt/Plan Assessment/Plan: ASSESSMENT Severe sepsis with MOF Acute hypoxemic respiratory failure requiring intubation Bilateral PNA with MRSA UTI ARF, likely due to dehydration- resolved Dehydration Hyperglycemia due to DM DM type 2 Lactic acidosis- resolved Hypernatremia due to dehydration, resolved Advanced dementia Dysphagia G tube Anemia of chronic disease, requiring transfusion Hypokalemia PLAN OF CARE ICU care Vent support Pulmonary toilet Fup daily CXR , ABG per discussion with supervising physician, not ready for extubation yet due to extensive PNA continue weaning protocol, tolerates anticipate extubation soon Abx ID follows urine cx negative, blood cx 1/4 +GPC in clusters, likely contaminant, sputum cx + MRSA s/p IVF Nephro follows ARF and hyper Na resolved, likely due to dehydration renal US with R echogenic kidney, suggesting long standing renal artery stenosis , ECHO with EF 65% and RVSP of 37 K stable after replacement nephro follows Anemia workup c/w anemia of chronic disease, HH up after 1 u PRBC Heme follows BS management with Levemir and SS of insulin prn , BS improving, [id number] Strict aspiration precautions, G tube feeding, monitor tolerance DVT GI prophylaxis case discussed and evaluated by supervising physician Critical Care - Objective Last 24 Hour Vital Signs Date Time Temp Pulse Resp B/P (MAP) Pulse Ox O2 Delivery O2 Flow Rate FiO2 03/17/17 07:30 113/46 03/17/17 07:11 62 18 30 03/17/17 07:00 59 18 113/46 100 Mechanical Ventilator 03/17/17 06:00 55 18 108/36 100 Mechanical Ventilator 03/17/17 05:10 54 18 30 03/17/17 05:00 56 18 112/35 98 Mechanical Ventilator 03/17/17 04:00 30 03/17/17 04:00 98.0 64 18 109/56 100 Mechanical Ventilator 03/17/17 03:14 60 03/17/17 03:12 64 18 30 03/17/17 03:00 63 18 110/56 100 Mechanical Ventilator 03/17/17 02:00 63 18 120/63 100 Mechanical Ventilator 30 03/17/17 01:00 58 18 106/38 100 Mechanical Ventilator 30 03/17/17 01:00 58 18 30 03/17/17 00:00 98.0 65 18 124/36 100 Mechanical Ventilator 30 03/17/17 00:00 58 03/17/17 00:00 30 03/16/17 23:04 55 18 30 03/16/17 23:00 56 18 105/39 100 Mechanical Ventilator 30 03/16/17 22:00 56 18 102/34 100 Mechanical Ventilator 30 03/16/17 21:01 56 18 30 03/16/17 21:00 76 18 105/35 100 Mechanical Ventilator 03/16/17 20:30 59 03/16/17 20:00 58 18 112/35 99 Mechanical Ventilator 30 03/16/17 20:00 30 03/16/17 19:00 98.5 58 18 97/75 100 Mechanical Ventilator 30 03/16/17 18:59 80 18 30 03/16/17 18:00 68 18 115/44 100 Mechanical Ventilator 30 03/16/17 17:10 61 18 30 03/16/17 17:00 98.5 69 18 110/45 99 Mechanical Ventilator 30 03/16/17 16:01 66 18 112/40 99 Mechanical Ventilator 30 03/16/17 16:00 66 03/16/17 16:00 30 03/16/17 15:10 66 18 30 03/16/17 15:00 68 22 112/38 98 Mechanical Ventilator 30 03/16/17 14:00 71 22 102/36 99 Mechanical Ventilator 30 03/16/17 13:10 65 19 30 03/16/17 13:00 73 22 98/40 98 Mechanical Ventilator 30 03/16/17 12:03 69 03/16/17 12:00 98.4 69 22 139/65 94 Mechanical Ventilator 03/16/17 11:15 30 03/16/17 11:05 74 18 30 03/16/17 11:00 81 22 122/44 93 Mechanical Ventilator 30 03/16/17 10:03 76 23 127/46 100 Mechanical Ventilator 30 03/16/17 09:20 71 24 30 03/16/17 09:20 98 03/16/17 09:00 81 23 124/48 100 Mechanical Ventilator 30 03/16/17 08:00 82 03/16/17 08:00 30 03/16/17 08:00 82 23 129/45 100 Mechanical Ventilator 30 Objective: Status: awake, intubated Condition: critical HEENT: atraumatic, normocephalic, OP with ET in place, intact, Lungs: rscattered rhonchi Heart: HR/BP stable, SR on tele Abdomen: soft, non-tender, active bowel sounds, G tube with TF Extremities: no C/C/E Accucheck: 110 Critical Care - Subjective ROS Limited/Unobtainable: Yes Interval Events: leukocytosis resolved, afebrile no signs of respiratory distress on weaning protocol, tolerates CXR still with extensive PNA s/p blood transfusion 03/16, HH up Condition: critical EKG Rhythm: Sinus Rhythm FI02: 30 Vent Support Breath Rate: 18 Vent Support Mode: AC Vent Tidal Volume: 500 Sputum Amount: Moderate PEEP: 5.0 PIP: 26 Tube Feeding Amount: 45 CXR: 03/16 Patchy airspace disease demonstrated within the lungs. Heart size is normal. Endotracheal tube position is improved. ET-Tube: 7.0 ET Position: 21 Yuri (Kathy Calero NP Mar 17, 2017 07:55
[2017-03-17] MEDS: Famotidine 20 MG/ 2ML VIAL IVP SCH (08:14)
[2017-03-17] MEDS: Levemir Flexpen SUBQ SCH (08:14)
[2017-03-17] MEDS: Heparin 5000 units/ml inj SUBQ SCH ×2 (09:26→20:40)
[2017-03-17 10:30] LABS: ABG BASE EXCESS 2.8; ABG PCO2 34.3 mmHg (35.0-45.0)
[2017-03-17 10:31] LABS: ABG ALLEN TEST POSITIVE
--- NOTE | 2017-03-17 11:19 | Diagnostic Imaging Report ---
Indication: Dyspnea Comparison: 03/16/17 A single view chest radiograph was obtained. Findings: Patchy pulmonary infiltrates demonstrated within the lung bases and right upper lobe. Endotracheal tube position is satisfactory. Impression: No change from the prior day.
--- NOTE | 2017-03-17 11:51 | General Progress Note ---
Assessment/Plan Status: stable Assessment/Plan Respiratory failure requiring intubation Severe sepsis secondary to pneumonia, resolving UTI Acute cystitis without hematuria Pneumonia, non cavitary, w/o effusion Dementia Acute renal failure , Dehydration Hypoxemic respiratory failure Type 2 diabetes mellitus with hyperglycemia Proteinuria Plan: Pulm support- Monitor renal parameters Urine studies- Avoid Nephrotoxics- Per Orders Subjective ROS Limited/Unobtainable: Yes Allergies: Coded Allergies: LORAZEPAM (Unverified Allergy, Unknown, 03/02/17) METOCLOPRAMIDE (Unverified Allergy, Unknown, 03/02/17) QUETIAPINE (Unverified Allergy, Unknown, 03/02/17) ZOLPIDEM (Unverified Allergy, Unknown, 03/02/17) Objective Last 24 Hour Vital Signs Date Time Temp Pulse Resp B/P (MAP) Pulse Ox O2 Delivery O2 Flow Rate FiO2 03/17/17 11:00 76 24 149/57 99 Mechanical Ventilator 03/17/17 10:54 96 19 30 03/17/17 10:00 61 18 124/43 99 Mechanical Ventilator 03/17/17 09:57 100 03/17/17 09:20 62 18 30 03/17/17 09:00 62 03/17/17 09:00 70 20 134/41 90 Mechanical Ventilator 03/17/17 08:00 96.9 63 18 119/43 98 Mechanical Ventilator 03/17/17 08:00 30 03/17/17 07:30 113/46 03/17/17 07:11 62 18 30 03/17/17 07:00 59 18 113/46 100 Mechanical Ventilator 03/17/17 06:00 55 18 108/36 100 Mechanical Ventilator 03/17/17 05:10 54 18 30 03/17/17 05:00 56 18 112/35 98 Mechanical Ventilator 30 03/17/17 04:00 30 03/17/17 04:00 98.0 64 18 109/56 100 Mechanical Ventilator 03/17/17 03:14 60 03/17/17 03:12 64 18 30 03/17/17 03:00 63 18 110/56 100 Mechanical Ventilator 03/17/17 02:00 63 18 120/63 100 Mechanical Ventilator 30 03/17/17 01:00 58 18 106/38 100 Mechanical Ventilator 30 03/17/17 01:00 58 18 30 03/17/17 00:00 98.0 65 18 124/36 100 Mechanical Ventilator 30 03/17/17 00:00 58 03/17/17 00:00 30 03/16/17 23:04 55 18 30 03/16/17 23:00 56 18 105/39 100 Mechanical Ventilator 30 03/16/17 22:00 56 18 102/34 100 Mechanical Ventilator 30 03/16/17 21:01 56 18 30 03/16/17 21:00 76 18 105/35 100 Mechanical Ventilator 30 03/16/17 20:30 59 03/16/17 20:00 58 18 112/35 99 Mechanical Ventilator 30 03/16/17 20:00 30 03/16/17 19:00 98.5 58 18 97/75 100 Mechanical Ventilator 30 03/16/17 18:59 80 18 30 03/16/17 18:00 68 18 115/44 100 Mechanical Ventilator 30 03/16/17 17:10 61 18 30 03/16/17 17:00 98.5 69 18 110/45 99 Mechanical Ventilator 30 03/16/17 16:01 66 18 112/40 99 Mechanical Ventilator 30 03/16/17 16:00 66 03/16/17 16:00 30 03/16/17 15:10 66 18 30 03/16/17 15:00 68 22 112/38 98 Mechanical Ventilator 30 03/16/17 14:00 71 22 102/36 99 Mechanical Ventilator 30 03/16/17 13:10 65 19 30 03/16/17 13:00 73 22 98/40 98 Mechanical Ventilator 03/16/17 12:03 69 03/16/17 12:00 98.4 69 22 139/65 94 Mechanical Ventilator 30 Intake and Output 03/17/17 03/18/17 19:00 07:00 Intake Total 180 ml Output Total 155 ml Balance 25 ml Tube Feeding 180 ml Output Urine Total 155 ml # Bowel Movements 1 Laboratory Tests 03/17/17 04:15: White Blood Count 6.5, Red Blood Count 2.75L, Hemoglobin 9.4L, Hematocrit 27.5L , Mean Corpuscular Volume 100H, Mean Corpuscular Hemoglobin 34.1H, Mean Corpuscular Hemoglobin Concent 34.1, Red Cell Distribution Width 13.7, Platelet Count 223, Mean Platelet Volume 10.3H, Neutrophils (%) (Auto) 63.5, Lymphocytes (%) (Auto) 16.8L, Monocytes (%) (Auto) 14.1H, Eosinophils (%) (Auto) 3.1H, Basophils (%) (Auto) 2.5H, Sodium Level 143, Potassium Level 4.1, Chloride Level 107, Carbon Dioxide Level 26, Anion Gap 10, Blood Urea Nitrogen 25H, Creatinine 0.6, Estimat Glomerular Filtration Rate , Glucose Level 110H, Calcium Level 8.7 03/17/17 09:40: Arterial Blood pH 7.497H, Arterial Blood Partial Pressure CO2 34.3L, Arterial Blood Partial Pressure O2 81.7, Arterial Blood HCO3 26.0, Arterial Blood Oxygen Saturation 94.9, Arterial Blood Base Excess 2.8, Shaun Test Positive Height (Feet): 5 Height (Inches): 2.00 Weight (Pounds): 132 General Appearance: no apparent distress Objective PE not changed IRWIN DAMON Mar 17, 2017 11:51
[2017-03-17] MEDS: Vancomycin 750mg/NS 250ml 250 ML IVPB SCH (16:42)
--- NOTE | 2017-03-17 23:03 | General Progress Note ---
Assessment/Plan Assessment/Plan 1. Leukocytosis, secondary to underlying sepsis. Continue monitoring. -->resolved --> on abx per id service 2. Anemia secondary to chronic disease. Ferritin is elevated, TIBC is low. --> transfuse if hgb is less than 8 --> monitor counts 4. Coagulopathy, potentially secondary to underlying sepsis as well. PTT is elevated. Prothrombin time is elevated. 5. Methicillin-resistant Staphylococcus aureus colonization. 6. Respiratory failure, status post intubation. 7. Acute kidney injury. --> nephrology following Subjective Date patient seen: Mar 16, 2017 Constitutional: Reports: no symptoms, Denies: chills, diaphoresis, fever, malaise, weakness, other HEENT: Denies: eye pain, blurred vision, tearing, double vision, ear pain, ear discharge, nose pain, nose congestion, throat pain, throat swelling, mouth pain , mouth swelling, other Cardiovascular: Reports: no symptoms, Denies: chest pain, edema, irregular heart rate, lightheadedness, palpitations, syncope, other Respiratory: Reports: no symptoms, Denies: cough, orthopnea, shortness of breath, SOB with excertion, SOB at rest, sputum, stridor, wheezing, other Gastrointestinal/Abdominal: Reports: no symptoms, vomiting, Denies: abdomen distended, abdominal pain, black stools, tarry stools, blood in stool, constipated, diarrhea, difficulty swallowing, nausea, poor appetite, poor fluid intake, rectal bleeding, other Genitourinary: Reports: no symptoms, Denies: burning, discharge, frequency, flank pain, hematuria, incontinence, pain, urgency, other Neurologic/Psychiatric: Reports: no symptoms, Denies: anxiety, depressed, emotional problems, headache, numbness, paresthesia, pre-existing deficit, seizure, tingling, tremors, weakness, other Endocrine: Reports: no symptoms, Denies: excessive sweating, flushing, intolerance to cold, intolerance to heat, increased hunger, increased thirst, increased urine, unexplained weight gain, unexplained weight loss, other Hematologic/Lymphatic: Reports: anemia Allergies: Coded Allergies: LORAZEPAM (Unverified Allergy, Unknown, 03/02/17) METOCLOPRAMIDE (Unverified Allergy, Unknown, 03/02/17) QUETIAPINE (Unverified Allergy, Unknown, 03/02/17) ZOLPIDEM (Unverified Allergy, Unknown, 03/02/17) Subjective Afebrile. No complaints of pain. Patient resting in bed. Comfortable. Objective Last 24 Hour Vital Signs Date Time Temp Pulse Resp B/P (MAP) Pulse Ox O2 Delivery O2 Flow Rate FiO2 03/17/17 22:00 72 18 145/42 100 Mechanical Ventilator 30 03/17/17 21:07 80 20 30 03/17/17 21:00 79 18 146/71 99 Mechanical Ventilator 03/17/17 20:01 71 03/17/17 20:00 30 03/17/17 20:00 99.5 80 18 145/40 98 Mechanical Ventilator 30 03/17/17 19:30 86 19 30 03/17/17 19:00 72 18 126/79 98 Mechanical Ventilator 03/17/17 18:00 71 18 137/53 100 Mechanical Ventilator 03/17/17 17:00 70 18 133/55 100 Mechanical Ventilator 30 03/17/17 16:48 74 18 30 03/17/17 16:00 98.1 69 18 140/48 100 Mechanical Ventilator 30 03/17/17 16:00 69 03/17/17 16:00 30 03/17/17 15:06 89 21 30 03/17/17 15:00 67 18 117/38 100 Mechanical Ventilator 03/17/17 14:00 79 22 115/72 100 Mechanical Ventilator 03/17/17 13:19 97 20 30 03/17/17 13:00 78 24 143/44 100 Mechanical Ventilator 03/17/17 12:00 30 03/17/17 12:00 77 03/17/17 12:00 98.8 78 25 145/44 99 Mechanical Ventilator 03/17/17 11:00 76 24 149/57 99 Mechanical Ventilator 03/17/17 10:54 96 19 30 03/17/17 10:00 61 18 124/43 99 Mechanical Ventilator 03/17/17 09:57 100 03/17/17 09:20 62 18 30 03/17/17 09:00 62 03/17/17 09:00 70 20 134/41 90 Mechanical Ventilator 03/17/17 08:00 96.9 63 18 119/43 98 Mechanical Ventilator 30 03/17/17 08:00 30 03/17/17 07:30 113/46 03/17/17 07:11 62 18 30 03/17/17 07:00 59 18 113/46 100 Mechanical Ventilator 30 03/17/17 06:00 55 18 108/36 100 Mechanical Ventilator 30 03/17/17 05:10 54 18 30 03/17/17 05:00 56 18 112/35 98 Mechanical Ventilator 30 03/17/17 04:00 30 03/17/17 04:00 98.0 64 18 109/56 100 Mechanical Ventilator 30 03/17/17 03:14 60 03/17/17 03:12 64 18 30 03/17/17 03:00 63 18 110/56 100 Mechanical Ventilator 30 03/17/17 02:00 63 18 120/63 100 Mechanical Ventilator 30 03/17/17 01:00 58 18 106/38 100 Mechanical Ventilator 30 03/17/17 01:00 58 18 30 03/17/17 00:00 98.0 65 18 124/36 100 Mechanical Ventilator 30 03/17/17 00:00 58 03/17/17 00:00 30 03/16/17 23:04 55 18 30 03/16/17 23:00 56 18 105/39 100 Mechanical Ventilator 30 03/16/17 22:00 56 18 102/34 100 Mechanical Ventilator 30 03/16/17 21:01 56 18 30 03/16/17 21:00 76 18 105/35 100 Mechanical Ventilator 30 03/16/17 20:30 59 03/16/17 20:00 58 18 112/35 99 Mechanical Ventilator 30 03/16/17 20:00 30 03/16/17 19:00 98.5 58 18 97/75 100 Mechanical Ventilator 30 03/16/17 18:59 80 18 30 03/16/17 18:00 68 18 115/44 100 Mechanical Ventilator 30 03/16/17 17:10 61 18 30 03/16/17 17:00 98.5 69 18 110/45 99 Mechanical Ventilator 30 03/16/17 16:01 66 18 112/40 99 Mechanical Ventilator 30 03/16/17 16:00 66 03/16/17 16:00 30 03/16/17 15:10 66 18 30 03/16/17 15:00 68 22 112/38 98 Mechanical Ventilator 30 03/16/17 14:00 71 22 102/36 99 Mechanical Ventilator 30 03/16/17 13:10 65 19 30 03/16/17 13:00 73 22 98/40 98 Mechanical Ventilator 30 03/16/17 12:03 69 03/16/17 12:00 98.4 69 22 139/65 94 Mechanical Ventilator 30 03/16/17 11:15 30 03/16/17 11:05 74 18 30 03/16/17 11:00 81 22 122/44 93 Mechanical Ventilator 30 03/16/17 10:03 76 23 127/46 100 Mechanical Ventilator 30 03/16/17 09:20 71 24 30 03/16/17 09:20 98 03/16/17 09:00 81 23 124/48 100 Mechanical Ventilator 30 03/16/17 08:00 82 03/16/17 08:00 30 03/16/17 08:00 82 23 129/45 100 Mechanical Ventilator 30 03/16/17 07:30 98.5 80 32 101/40 100 Mechanical Ventilator 30 03/16/17 07:30 129/45 03/16/17 07:10 64 19 30 03/16/17 06:00 67 18 130/38 100 Mechanical Ventilator 30 03/16/17 05:05 71 18 30 03/16/17 05:00 71 18 110/48 99 Mechanical Ventilator 30 03/16/17 04:00 30 03/16/17 04:00 75 18 121/51 95 Mechanical Ventilator 30 03/16/17 04:00 75 03/16/17 03:08 76 18 30 03/16/17 03:00 69 18 111/40 100 Mechanical Ventilator 30 03/16/17 02:00 68 18 103/36 98 Mechanical Ventilator 30 03/16/17 01:11 65 18 30 03/16/17 01:00 81 23 100/45 100 Mechanical Ventilator 30 03/16/17 00:00 79 03/16/17 00:00 98.3 79 18 112/42 98 Mechanical Ventilator 30 03/16/17 00:00 30 03/15/17 23:12 67 18 30 03/15/17 23:00 74 20 131/44 100 Mechanical Ventilator 30 Last 24 Hour Vital Signs Date Time Temp Pulse Resp B/P (MAP) Pulse Ox O2 Delivery O2 Flow Rate FiO2 03/17/17 22:00 72 18 145/42 100 Mechanical Ventilator 30 03/17/17 21:07 80 20 30 03/17/17 21:00 79 18 146/71 99 Mechanical Ventilator 30 03/17/17 20:01 71 03/17/17 20:00 30 03/17/17 20:00 99.5 80 18 145/40 98 Mechanical Ventilator 30 03/17/17 19:30 86 19 30 03/17/17 19:00 72 18 126/79 98 Mechanical Ventilator 30 03/17/17 18:00 71 18 137/53 100 Mechanical Ventilator 30 03/17/17 17:00 70 18 133/55 100 Mechanical Ventilator 30 03/17/17 16:48 74 18 30 03/17/17 16:00 98.1 69 18 140/48 100 Mechanical Ventilator 30 03/17/17 16:00 69 03/17/17 16:00 30 03/17/17 15:06 89 21 30 03/17/17 15:00 67 18 117/38 100 Mechanical Ventilator 30 03/17/17 14:00 79 22 115/72 100 Mechanical Ventilator 30 03/17/17 13:19 97 20 30 03/17/17 13:00 78 24 143/44 100 Mechanical Ventilator 30 03/17/17 12:00 30 03/17/17 12:00 77 03/17/17 12:00 98.8 78 25 145/44 99 Mechanical Ventilator 30 03/17/17 11:00 76 24 149/57 99 Mechanical Ventilator 30 03/17/17 10:54 96 19 30 03/17/17 10:00 61 18 124/43 99 Mechanical Ventilator 30 03/17/17 09:57 100 03/17/17 09:20 62 18 30 03/17/17 09:00 62 03/17/17 09:00 70 20 134/41 90 Mechanical Ventilator 30 03/17/17 08:00 96.9 63 18 119/43 98 Mechanical Ventilator 30 03/17/17 08:00 30 03/17/17 07:30 113/46 03/17/17 07:11 62 18 30 03/17/17 07:00 59 18 113/46 100 Mechanical Ventilator 30 03/17/17 06:00 55 18 108/36 100 Mechanical Ventilator 30 03/17/17 05:10 54 18 30 03/17/17 05:00 56 18 112/35 98 Mechanical Ventilator 30 03/17/17 04:00 30 03/17/17 04:00 98.0 64 18 109/56 100 Mechanical Ventilator 30 03/17/17 03:14 60 8/27/17 03:12 64 18 30 03/17/17 03:00 63 18 110/56 100 Mechanical Ventilator 30 03/17/17 02:00 63 18 120/63 100 Mechanical Ventilator 30 03/17/17 01:00 58 18 106/38 100 Mechanical Ventilator 30 03/17/17 01:00 58 18 30 03/17/17 00:00 98.0 65 18 124/36 100 Mechanical Ventilator 30 03/17/17 00:00 58 03/17/17 00:00 30 03/16/17 23:04 55 18 30 03/16/17 23:00 56 18 105/39 100 Mechanical Ventilator 30 Intake and Output 03/17/17 03/18/17 19:00 07:00 Intake Total 940.000 ml 135 ml Output Total 505 ml 125 ml Balance 435.000 ml 10 ml Free Water 150 ml IV Total 250.000 ml Tube Feeding 540 ml 135 ml Output Urine Total 505 ml 125 ml # Bowel Movements 1 Labs Test 03/15/17 04:15 03/15/17 04:35 03/16/17 03:15 03/16/17 03:45 White Blood Count 9.0 K/UL (4.8-10.8) 7.3 K/UL (4.8-10.8) Red Blood Count 2.34 M/UL (4.20-5.40) 2.16 M/UL (4.20-5.40) Hemoglobin 8.2 G/DL (12.0-16.0) 7.8 G/DL (12.0-16.0) Hematocrit 24.0 % (37.0-47.0) 22.1 % (37.0-47.0) Mean Corpuscular Volume 103 FL (80-99) 103 FL (80-99) Mean Corpuscular Hemoglobin 35.1 PG (27.0-31.0) 36.0 PG (27.0-31.0) Mean Corpuscular Hemoglobin Concent 34.2 G/DL (32.0-36.0) 35.1 G/DL (32.0-36.0) Red Cell Distribution Width 13.0 % (11.6-14.8) 12.9 % (11.6-14.8) Platelet Count 227 K/UL (150-450) 242 K/UL (150-450) Mean Platelet Volume 11.4 FL (6.5-10.1) 11.1 FL (6.5-10.1) Neutrophils (%) (Auto) 82.0 % (45.0-75.0) % (45.0-75.0) Lymphocytes (%) (Auto) 8.8 % (20.0-45.0) % (20.0-45.0) Monocytes (%) (Auto) 5.9 % (1.0-10.0) % (1.0-10.0) Eosinophils (%) (Auto) 2.5 % (0.0-3.0) % (0.0-3.0) Basophils (%) (Auto) 0.8 % (0.0-2.0) % (0.0-2.0) Sodium Level 141 mEQ/L (135-145) 141 mEQ/L (135-145) Potassium Level 4.3 mEQ/L (3.4-4.9) 4.5 mEQ/L (3.4-4.9) Chloride Level 107 mEQ/L (98-107) 109 mEQ/L (98-107) Carbon Dioxide Level 24 mEQ/L (20-30) 24 mEQ/L (20-30) Anion Gap 10 (5-15) 8 (5-15) Blood Urea Nitrogen 21 mg/dL (7-23) 23 mg/dL (7-23) Creatinine 0.7 mg/dL (0.5-0.9) 0.5 mg/dL (0.5-0.9) Estimat Glomerular Filtration Rate mL/min (>60) mL/min (>60) Glucose Level 316 mg/dL (74-106) 176 mg/dL (74-106) Uric Acid 2.9 mg/dL (3.0-7.5) Calcium Level 8.0 mg/dL (8.6-10.2) 8.6 mg/dL (8.6-10.2) Phosphorus Level 2.7 mg/dL (2.5-4.8) 2.0 mg/dL (2.5-4.8) Magnesium Level 2.1 mg/dL (1.7-2.5) 2.0 mg/dL (1.7-2.5) Total Bilirubin 0.4 mg/dL (0.0-1.2) 0.3 mg/dL (0.0-1.2) Aspartate Amino Transf (AST/SGOT) 43 U/L (5-40) 47 U/L (5-40) Alanine Aminotransferase (ALT/SGPT) 20 U/L (3-33) 22 U/L (3-33) Alkaline Phosphatase 156 U/L (35-104) 136 U/L (35-104) C-Reactive Protein, Quantitative 9.1 mg/dL (< 0.5) Pro-B-Type Natriuretic Peptide 1503 pg/mL (0-450) Total Protein 5.3 g/dL (6.6-8.7) 5.2 g/dL (6.6-8.7) Albumin 1.9 g/dL (3.5-5.2) 1.9 g/dL (3.5-5.2) Globulin 3.4 g/dL 3.3 g/dL Albumin/Globulin Ratio 0.5 (1.0-2.7) 0.5 (1.0-2.7) Arterial Blood pH 7.470 (7.350-7.450) Arterial Blood Partial Pressure CO2 35.3 mmHg (35.0-45.0) Arterial Blood Partial Pressure O2 82.6 mmHg (75.0-100.0) Arterial Blood HCO3 25.4 mmol/L (22.0-26.0) Arterial Blood Oxygen Saturation 95.0 % (92.0-98.0) Arterial Blood Base Excess 1.9 Shaun Test Positive Test 03/16/17 08:42 03/17/17 04:15 03/17/17 09:40 Arterial Blood pH 7.473 (7.350-7.450) 7.497 (7.350-7.450) Arterial Blood Partial Pressure CO2 36.4 mmHg (35.0-45.0) 34.3 mmHg (35.0-45.0) Arterial Blood Partial Pressure O2 76.5 mmHg (75.0-100.0) 81.7 mmHg (75.0-100.0) Arterial Blood HCO3 26.1 mmol/L (22.0-26.0) 26.0 mmol/L (22.0-26.0) Arterial Blood Oxygen Saturation 93.6 % (92.0-98.0) 94.9 % (92.0-98.0) Arterial Blood Base Excess 2.4 2.8 Shaun Test Positive Positive White Blood Count 6.5 K/UL (4.8-10.8) Red Blood Count 2.75 M/UL (4.20-5.40) Hemoglobin 9.4 G/DL (12.0-16.0) Hematocrit 27.5 % (37.0-47.0) Mean Corpuscular Volume 100 FL (80-99) Mean Corpuscular Hemoglobin 34.1 PG (27.0-31.0) Mean Corpuscular Hemoglobin Concent 34.1 G/DL (32.0-36.0) Red Cell Distribution Width 13.7 % (11.6-14.8) Platelet Count 223 K/UL (150-450) Mean Platelet Volume 10.3 FL (6.5-10.1) Neutrophils (%) (Auto) 63.5 % (45.0-75.0) Lymphocytes (%) (Auto) 16.8 % (20.0-45.0) Monocytes (%) (Auto) 14.1 % (1.0-10.0) Eosinophils (%) (Auto) 3.1 % (0.0-3.0) Basophils (%) (Auto) 2.5 % (0.0-2.0) Sodium Level 143 mEQ/L (135-145) Potassium Level 4.1 mEQ/L (3.4-4.9) Chloride Level 107 mEQ/L (98-107) Carbon Dioxide Level 26 mEQ/L (20-30) Anion Gap 10 (5-15) Blood Urea Nitrogen 25 mg/dL (7-23) Creatinine 0.6 mg/dL (0.5-0.9) Estimat Glomerular Filtration Rate mL/min (>60) Glucose Level 110 mg/dL (74-106) Calcium Level 8.7 mg/dL (8.6-10.2) Laboratory Tests 03/17/17 04:15: White Blood Count 6.5, Red Blood Count 2.75L, Hemoglobin 9.4L, Hematocrit 27.5L , Mean Corpuscular Volume 100H, Mean Corpuscular Hemoglobin 34.1H, Mean Corpuscular Hemoglobin Concent 34.1, Red Cell Distribution Width 13.7, Platelet Count 223, Mean Platelet Volume 10.3H, Neutrophils (%) (Auto) 63.5, Lymphocytes (%) (Auto) 16.8L, Monocytes (%) (Auto) 14.1H, Eosinophils (%) (Auto) 3.1H, Basophils (%) (Auto) 2.5H, Sodium Level 143, Potassium Level 4.1, Chloride Level 107, Carbon Dioxide Level 26, Anion Gap 10, Blood Urea Nitrogen 25H, Creatinine 0.6, Estimat Glomerular Filtration Rate , Glucose Level 110H, Calcium Level 8.7 03/17/17 09:40: Arterial Blood pH 7.497H, Arterial Blood Partial Pressure CO2 34.3L, Arterial Blood Partial Pressure O2 81.7, Arterial Blood HCO3 26.0, Arterial Blood Oxygen Saturation 94.9, Arterial Blood Base Excess 2.8, Shaun Test Positive Height (Feet): 5 Height (Inches): 2.00 Weight (Pounds): 132 EENT: normal 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
--- NOTE | 2017-03-17 23:06 | General Progress Note ---
Assessment/Plan Assessment/Plan 1. Leukocytosis, secondary to underlying sepsis. Continue monitoring. -->resolved --> on abx per id service 2. Anemia secondary to chronic disease. Ferritin is elevated, TIBC is low. --> transfuse if hgb is less than 8 --> monitor counts --> has been stable >8 4. Coagulopathy, potentially secondary to underlying sepsis as well. --> PTT is elevated. Prothrombin time is elevated. 5. Methicillin-resistant Staphylococcus aureus colonization. 6. Respiratory failure, status post intubation. 7. Acute kidney injury. --> nephrology following Subjective Date patient seen: Mar 17, 2017 Constitutional: Reports: no symptoms HEENT: Reports: no symptoms Cardiovascular: Reports: no symptoms Respiratory: Reports: no symptoms Gastrointestinal/Abdominal: Reports: no symptoms Genitourinary: Reports: no symptoms Neurologic/Psychiatric: Reports: no symptoms Hematologic/Lymphatic: Reports: anemia Allergies: Coded Allergies: LORAZEPAM (Unverified Allergy, Unknown, 03/02/17) METOCLOPRAMIDE (Unverified Allergy, Unknown, 03/02/17) QUETIAPINE (Unverified Allergy, Unknown, 03/02/17) ZOLPIDEM (Unverified Allergy, Unknown, 03/02/17) Subjective Afebrile. No complaints of pain. Patient resting in bed. Calm. No active bleeding. Objective Last 24 Hour Vital Signs Date Time Temp Pulse Resp B/P (MAP) Pulse Ox O2 Delivery O2 Flow Rate FiO2 03/17/17 22:00 72 18 145/42 100 Mechanical Ventilator 03/17/17 21:07 80 20 30 03/17/17 21:00 79 18 146/71 99 Mechanical Ventilator 03/17/17 20:01 71 03/17/17 20:00 30 03/17/17 20:00 99.5 80 18 145/40 98 Mechanical Ventilator 03/17/17 19:30 86 19 30 03/17/17 19:00 72 18 126/79 98 Mechanical Ventilator 03/17/17 18:00 71 18 137/53 100 Mechanical Ventilator 30 03/17/17 17:00 70 18 133/55 100 Mechanical Ventilator 30 03/17/17 16:48 74 18 30 03/17/17 16:00 98.1 69 18 140/48 100 Mechanical Ventilator 30 03/17/17 16:00 69 03/17/17 16:00 30 03/17/17 15:06 89 21 30 03/17/17 15:00 67 18 117/38 100 Mechanical Ventilator 30 03/17/17 14:00 79 22 115/72 100 Mechanical Ventilator 30 03/17/17 13:19 97 20 30 03/17/17 13:00 78 24 143/44 100 Mechanical Ventilator 30 03/17/17 12:00 30 03/17/17 12:00 77 03/17/17 12:00 98.8 78 25 145/44 99 Mechanical Ventilator 30 03/17/17 11:00 76 24 149/57 99 Mechanical Ventilator 30 03/17/17 10:54 96 19 30 03/17/17 10:00 61 18 124/43 99 Mechanical Ventilator 30 03/17/17 09:57 100 03/17/17 09:20 62 18 30 03/17/17 09:00 62 03/17/17 09:00 70 20 134/41 90 Mechanical Ventilator 30 03/17/17 08:00 96.9 63 18 119/43 98 Mechanical Ventilator 30 03/17/17 08:00 30 03/17/17 07:30 113/46 03/17/17 07:11 62 18 30 03/17/17 07:00 59 18 113/46 100 Mechanical Ventilator 30 03/17/17 06:00 55 18 108/36 100 Mechanical Ventilator 30 03/17/17 05:10 54 18 30 03/17/17 05:00 56 18 112/35 98 Mechanical Ventilator 30 03/17/17 04:00 30 03/17/17 04:00 98.0 64 18 109/56 100 Mechanical Ventilator 03/17/17 03:14 60 03/17/17 03:12 64 18 30 03/17/17 03:00 63 18 110/56 100 Mechanical Ventilator 30 03/17/17 02:00 63 18 120/63 100 Mechanical Ventilator 30 03/17/17 01:00 58 18 106/38 100 Mechanical Ventilator 30 03/17/17 01:00 58 18 30 03/17/17 00:00 98.0 65 18 124/36 100 Mechanical Ventilator 30 03/17/17 00:00 58 03/17/17 00:00 30 03/16/17 23:04 55 18 30 Intake and Output 03/17/17 03/18/17 19:00 07:00 Intake Total 940.000 ml 135 ml Output Total 505 ml 125 ml Balance 435.000 ml 10 ml Free Water 150 ml IV Total 250.000 ml Tube Feeding 540 ml 135 ml Output Urine Total 505 ml 125 ml # Bowel Movements 1 Laboratory Tests 03/17/17 04:15: White Blood Count 6.5, Red Blood Count 2.75L, Hemoglobin 9.4L, Hematocrit 27.5L , Mean Corpuscular Volume 100H, Mean Corpuscular Hemoglobin 34.1H, Mean Corpuscular Hemoglobin Concent 34.1, Red Cell Distribution Width 13.7, Platelet Count 223, Mean Platelet Volume 10.3H, Neutrophils (%) (Auto) 63.5, Lymphocytes (%) (Auto) 16.8L, Monocytes (%) (Auto) 14.1H, Eosinophils (%) (Auto) 3.1H, Basophils (%) (Auto) 2.5H, Sodium Level 143, Potassium Level 4.1, Chloride Level 107, Carbon Dioxide Level 26, Anion Gap 10, Blood Urea Nitrogen 25H, Creatinine 0.6, Estimat Glomerular Filtration Rate , Glucose Level 110H, Calcium Level 8.7 03/17/17 09:40: Arterial Blood pH 7.497H, Arterial Blood Partial Pressure CO2 34.3L, Arterial Blood Partial Pressure O2 81.7, Arterial Blood HCO3 26.0, Arterial Blood Oxygen Saturation 94.9, Arterial Blood Base Excess 2.8, Shaun Test Positive Height (Feet): 5 Height (Inches): 2.00 Weight (Pounds): 132 General Appearance: no apparent distress EENT: normal ENT inspection Neck: normal inspection 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
[2017-03-18] VITALS (24 sets, daily range): BP systolic 114–155; BP diastolic 38–84
[2017-03-18] MEDS: NovoLOG Insulin Flexpen SUBQ SCH ×5 (04:26→20:05)
[2017-03-18 05:58] LABS: EOSINOPHILS % (AUTO) 2.5 % (0.0-3.0); LYMPHOCYTES % (AUTO) 18.1 % (20.0-45.0); MEAN CORPUSCULAR HEMOGLOBIN 34.3 PG (27.0-31.0); MEAN CORPUSCULAR HGB CONC 33.8 G/DL (32.0-36.0); MEAN CORPUSCULAR VOLUME 101 FL (80-99); MEAN PLATELET VOLUME 9.8 FL (6.5-10.1); MONOCYTES % (AUTO) 8.7 % (1.0-10.0); NEUTROPHILS % (AUTO) 68.7 % (45.0-75.0); PLATELET COUNT 264 K/UL (150-450); RED BLOOD COUNT 2.84 M/UL (4.20-5.40); RED CELL DISTRIBUTION WIDTH 15.1 % (11.6-14.8); WHITE BLOOD COUNT 6.8 K/UL (4.8-10.8)
[2017-03-18 06:21] LABS: ANION GAP 12 (5-15); CALCIUM 9.2 mg/dL (8.6-10.2); CARBON DIOXIDE 24 mEQ/L (20-30); CHLORIDE 107 mEQ/L (98-107); CREATININE 0.6 mg/dL (0.5-0.9); HEMOLYSIS 16; POTASSIUM 3.9 mEQ/L (3.4-4.9); SODIUM 143 mEQ/L (135-145)
[2017-03-18] MEDS: Famotidine 20 MG/ 2ML VIAL IVP SCH (08:12)
[2017-03-18] MEDS: Levemir Flexpen SUBQ SCH (08:12)
[2017-03-18] MEDS: Heparin 5000 units/ml inj SUBQ SCH ×2 (08:14→20:32)
--- NOTE | 2017-03-18 10:11 | Pulmonolgy Critical Care Note ---
Critical Care - Asmt/Plan Problems: (1) Respiratory failure requiring intubation (2) Pneumonia (3) Anemia (4) Advanced dementia (5) Feeding by G-tube (6) Severe sepsis Respiratory: monitor respiratory rate, adjust FIO2, CXR Cardiac: continue to monitor HR/BP Infectious Disease: check cultures, continue antibiotics Gastrointestinal: continue feedings/current rate Endocrine: monitor blood sugar, check TSH, check HgA1C, continue sliding scale insulin Hematologic: monitor H/H, transfuse if hgb<8.5 Neurologic: PRN Ativan, PRN Morphine, keep patient comfortable Affect: PRN ativan Prophylaxis: Protonix Disposition: keep in ICU Notes Reviewed: cardio Discussed with: nurses, consultants, shoe parts caserbatch and furnace manager - Objective Last 24 Hour Vital Signs Date Time Temp Pulse Resp B/P (MAP) Pulse Ox O2 Delivery O2 Flow Rate FiO2 03/18/17 10:00 66 18 132/45 100 Mechanical Ventilator 30 03/18/17 09:05 30 03/18/17 09:04 72 18 30 03/18/17 09:00 73 18 114/84 100 Mechanical Ventilator 30 03/18/17 08:00 98.7 69 18 141/47 100 Mechanical Ventilator 30 03/18/17 08:00 30 03/18/17 08:00 68 03/18/17 07:29 124/38 03/18/17 07:00 97 18 124/38 98 Mechanical Ventilator 30 03/18/17 06:40 70 18 30 03/18/17 06:00 63 18 136/43 100 Mechanical Ventilator 30 03/18/17 05:03 73 18 30 03/18/17 05:00 75 18 149/51 97 Mechanical Ventilator 30 03/18/17 04:00 30 03/18/17 04:00 98.5 79 18 148/46 99 Mechanical Ventilator 30 03/18/17 03:59 72 03/18/17 03:30 78 18 30 03/18/17 03:00 79 18 126/46 98 Mechanical Ventilator 30 03/18/17 02:00 79 18 127/45 99 Mechanical Ventilator 30 03/18/17 01:30 74 18 30 03/18/17 01:00 63 18 115/42 100 Mechanical Ventilator 30 03/18/17 00:00 30 03/18/17 00:00 98.7 65 18 114/41 100 Mechanical Ventilator 30 03/17/17 23:36 66 03/17/17 23:30 70 18 30 03/17/17 23:00 72 18 137/49 100 Mechanical Ventilator 30 03/17/17 22:00 72 18 145/42 100 Mechanical Ventilator 30 03/17/17 21:07 80 20 30 03/17/17 21:00 79 18 146/71 99 Mechanical Ventilator 30 03/17/17 20:01 71 03/17/17 20:00 30 03/17/17 20:00 99.5 80 18 145/40 98 Mechanical Ventilator 30 03/17/17 19:30 86 19 30 03/17/17 19:00 72 18 126/79 98 Mechanical Ventilator 30 03/17/17 18:00 71 18 137/53 100 Mechanical Ventilator 30 03/17/17 17:00 70 18 133/55 100 Mechanical Ventilator 30 03/17/17 16:48 74 18 30 03/17/17 16:00 98.1 69 18 140/48 100 Mechanical Ventilator 30 03/17/17 16:00 69 03/17/17 16:00 30 03/17/17 15:06 89 21 30 03/17/17 15:00 67 18 117/38 100 Mechanical Ventilator 30 03/17/17 14:00 79 22 115/72 100 Mechanical Ventilator 03/17/17 13:19 97 20 30 03/17/17 13:00 78 24 143/44 100 Mechanical Ventilator 30 03/17/17 12:00 30 03/17/17 12:00 77 03/17/17 12:00 98.8 78 25 145/44 99 Mechanical Ventilator 03/17/17 11:00 76 24 149/57 99 Mechanical Ventilator 03/17/17 10:54 96 19 30 Status: awake Condition: critical HEENT: atraumatic Neck: full ROM Lungs: clear Heart: HR/BP stable, HR/BP unstable Abdomen: soft, non-tender Extremities: no C/C/E, edema Decubiti: location Accucheck: 221 Critical Care - Subjective ROS Limited/Unobtainable: Yes ICU Day: 6 Intubation Day: 6 Condition: critical EKG Rhythm: Sinus Rhythm FI02: 30 Vent Support Breath Rate: 10 Vent Support Mode: IMV/SIMV Vent Tidal Volume: 500 Sputum Amount: Moderate PEEP: 5.0 PIP: 17 Fluids: none Tube Feeding Amount: 45 I&O: Intake and Output 03/18/17 03/19/17 19:00 07:00 Intake Total 135 ml Output Total 140 ml Balance -5 ml Tube Feeding 135 ml Output Urine Total 140 ml CXR: Right sided infiltrate ET-Tube: 7.0 ET Position: 21 Labs: Laboratory Tests Test 03/18/17 05:20 White Blood Count 6.8 K/UL (4.8-10.8) Red Blood Count 2.84 M/UL (4.20-5.40) L Hemoglobin 9.7 G/DL (12.0-16.0) L Hematocrit 28.7 % (37.0-47.0) L Mean Corpuscular Volume 101 FL (80-99) H Mean Corpuscular Hemoglobin 34.3 PG (27.0-31.0) H Mean Corpuscular Hemoglobin Concent 33.8 G/DL (32.0-36.0) Red Cell Distribution Width 15.1 % (11.6-14.8) H Platelet Count 264 K/UL (150-450) Mean Platelet Volume 9.8 FL (6.5-10.1) Neutrophils (%) (Auto) 68.7 % (45.0-75.0) Lymphocytes (%) (Auto) 18.1 % (20.0-45.0) L Monocytes (%) (Auto) 8.7 % (1.0-10.0) Eosinophils (%) (Auto) 2.5 % (0.0-3.0) Basophils (%) (Auto) 2.0 % (0.0-2.0) Sodium Level 143 mEQ/L (135-145) Potassium Level 3.9 mEQ/L (3.4-4.9) Chloride Level 107 mEQ/L (98-107) Carbon Dioxide Level 24 mEQ/L (20-30) Anion Gap 12 (5-15) Blood Urea Nitrogen 25 mg/dL (7-23) H Creatinine 0.6 mg/dL (0.5-0.9) Estimat Glomerular Filtration Rate mL/min (>60) Glucose Level 226 mg/dL (74-106) #H Calcium Level 9.2 mg/dL (8.6-10.2) ZAIRA ROSALES Mar 18, 2017 10:11
--- NOTE | 2017-03-18 11:46 | General Progress Note ---
Assessment/Plan Status: stable - from renal stand Assessment/Plan Respiratory failure requiring intubation Severe sepsis secondary to pneumonia, resolving UTI Acute cystitis without hematuria Pneumonia, non cavitary, w/o effusion Dementia Acute renal failure , Dehydration Hypoxemic respiratory failure Type 2 diabetes mellitus with hyperglycemia Proteinuria Plan: Pulm support- Monitor renal parameters Urine studies- Avoid Nephrotoxics- Per Orders Subjective ROS Limited/Unobtainable: Yes Allergies: Coded Allergies: LORAZEPAM (Unverified Allergy, Unknown, 03/02/17) METOCLOPRAMIDE (Unverified Allergy, Unknown, 03/02/17) QUETIAPINE (Unverified Allergy, Unknown, 03/02/17) ZOLPIDEM (Unverified Allergy, Unknown, 03/02/17) Objective Last 24 Hour Vital Signs Date Time Temp Pulse Resp B/P (MAP) Pulse Ox O2 Delivery O2 Flow Rate FiO2 03/18/17 11:00 73 18 132/66 100 Mechanical Ventilator 30 03/18/17 10:45 100 03/18/17 10:45 70 18 30 03/18/17 10:00 66 18 132/45 100 Mechanical Ventilator 30 03/18/17 09:05 30 03/18/17 09:04 72 18 30 03/18/17 09:00 73 18 114/84 100 Mechanical Ventilator 30 03/18/17 08:00 98.7 69 18 141/47 100 Mechanical Ventilator 30 03/18/17 08:00 30 03/18/17 08:00 68 03/18/17 07:29 124/38 03/18/17 07:00 97 18 124/38 98 Mechanical Ventilator 30 03/18/17 06:40 70 18 30 03/18/17 06:00 63 18 136/43 100 Mechanical Ventilator 30 03/18/17 05:03 73 18 30 03/18/17 05:00 75 18 149/51 97 Mechanical Ventilator 30 03/18/17 04:00 30 03/18/17 04:00 98.5 79 18 148/46 99 Mechanical Ventilator 30 03/18/17 03:59 72 03/18/17 03:30 78 18 30 03/18/17 03:00 79 18 126/46 98 Mechanical Ventilator 30 03/18/17 02:00 79 18 127/45 99 Mechanical Ventilator 30 03/18/17 01:30 74 18 30 03/18/17 01:00 63 18 115/42 100 Mechanical Ventilator 30 03/18/17 00:00 30 03/18/17 00:00 98.7 65 18 114/41 100 Mechanical Ventilator 30 03/17/17 23:36 66 03/17/17 23:30 70 18 30 03/17/17 23:00 72 18 137/49 100 Mechanical Ventilator 30 03/17/17 22:00 72 18 145/42 100 Mechanical Ventilator 30 03/17/17 21:07 80 20 30 03/17/17 21:00 79 18 146/71 99 Mechanical Ventilator 30 03/17/17 20:01 71 03/17/17 20:00 30 03/17/17 20:00 99.5 80 18 145/40 98 Mechanical Ventilator 30 03/17/17 19:30 86 19 30 03/17/17 19:00 72 18 126/79 98 Mechanical Ventilator 30 03/17/17 18:00 71 18 137/53 100 Mechanical Ventilator 30 03/17/17 17:00 70 18 133/55 100 Mechanical Ventilator 30 03/17/17 16:48 74 18 30 03/17/17 16:00 98.1 69 18 140/48 100 Mechanical Ventilator 30 03/17/17 16:00 69 03/17/17 16:00 30 03/17/17 15:06 89 21 30 03/17/17 15:00 67 18 117/38 100 Mechanical Ventilator 30 03/17/17 14:00 79 22 115/72 100 Mechanical Ventilator 30 03/17/17 13:19 97 20 30 03/17/17 13:00 78 24 143/44 100 Mechanical Ventilator 30 03/17/17 12:00 30 03/17/17 12:00 77 03/17/17 12:00 98.8 78 25 145/44 99 Mechanical Ventilator 30 Intake and Output 03/18/17 03/19/17 18:59 06:59 Intake Total 225 ml Output Total 215 ml Balance 10 ml Tube Feeding 225 ml Output Urine Total 215 ml Laboratory Tests 03/18/17 05:20: White Blood Count 6.8, Red Blood Count 2.84L, Hemoglobin 9.7L, Hematocrit 28.7L , Mean Corpuscular Volume 101H, Mean Corpuscular Hemoglobin 34.3H, Mean Corpuscular Hemoglobin Concent 33.8, Red Cell Distribution Width 15.1H, Platelet Count 264, Mean Platelet Volume 9.8, Neutrophils (%) (Auto) 68.7, Lymphocytes (%) (Auto) 18.1L, Monocytes (%) (Auto) 8.7, Eosinophils (%) (Auto) 2.5, Basophils (%) (Auto) 2.0, Sodium Level 143, Potassium Level 3.9, Chloride Level 107, Carbon Dioxide Level 24, Anion Gap 12, Blood Urea Nitrogen 25H, Creatinine 0.6, Estimat Glomerular Filtration Rate , Glucose Level 226#H, Calcium Level 9.2 Height (Feet): 5 Height (Inches): 2.00 Weight (Pounds): 132 General Appearance: other - remains intubated Cardiovascular: normal rate Respiratory/Chest: decreased breath sounds Abdomen: distended Objective PE not changed IRWIN DAMON Mar 18, 2017 11:46
--- NOTE | 2017-03-18 12:39 | Diagnostic Imaging Report ---
Indication: Dyspnea Comparison: 03/17/17 A single view chest radiograph was obtained. Findings: Patchy mixed interstitial alveolar infiltrates present bilaterally. Heart size is normal. Endotracheal tube is just above the pema. Impression: Very similar findings to one day earlier. Patchy infiltrates.
[2017-03-18] MEDS ORDERED: Tubing IV Secondary IV ONE (16:06)
[2017-03-18] MEDS ORDERED: NS 275ml ONE (16:06)
[2017-03-18] MEDS: Vancomycin 750mg/NS 250ml 250 ML IVPB SCH (17:01)
--- NOTE | 2017-03-18 19:19 | General Progress Note ---
Assessment/Plan Status: stable Assessment/Plan 1. Leukocytosis, secondary to underlying sepsis. Continue monitoring. --> Has been resolved --> on abx per id service 2. Anemia secondary to chronic disease. Ferritin is elevated, TIBC is low. --> transfuse if hgb is less than 8 or symptomatic --> monitor counts --> has been stable >8 4. Coagulopathy, potentially secondary to underlying sepsis as well. --> PTT is elevated. Prothrombin time is elevated. 5. Methicillin-resistant Staphylococcus aureus colonization. 6. Respiratory failure, status post intubation. 7. Acute kidney injury. --> nephrology following Subjective Date patient seen: Mar 18, 2017 Constitutional: Denies: no symptoms, chills, diaphoresis, fever, malaise, weakness, other HEENT: Denies: no symptoms, eye pain, blurred vision, tearing, double vision, ear pain, ear discharge, nose pain, nose congestion, throat pain, throat swelling, mouth pain, mouth swelling, other Cardiovascular: Denies: no symptoms, chest pain, edema, irregular heart rate, lightheadedness, palpitations, syncope, other Respiratory: Denies: no symptoms, cough, orthopnea, shortness of breath, SOB with excertion, SOB at rest, sputum, stridor, wheezing, other Gastrointestinal/Abdominal: Denies: no symptoms, abdomen distended, abdominal pain, black stools, tarry stools, blood in stool, constipated, diarrhea, difficulty swallowing, nausea, poor appetite, poor fluid intake, rectal bleeding , vomiting, other Genitourinary: Denies: no symptoms, burning, discharge, frequency, flank pain, hematuria, incontinence, pain, urgency, other Hematologic/Lymphatic: Reports: anemia Allergies: Coded Allergies: LORAZEPAM (Unverified Allergy, Unknown, 03/02/17) METOCLOPRAMIDE (Unverified Allergy, Unknown, 03/02/17) QUETIAPINE (Unverified Allergy, Unknown, 03/02/17) ZOLPIDEM (Unverified Allergy, Unknown, 03/02/17) Subjective Patient intubated. Hemoglobin has been stable. Afebrile. No acute distress. Objective Last 24 Hour Vital Signs Date Time Temp Pulse Resp B/P (MAP) Pulse Ox O2 Delivery O2 Flow Rate FiO2 03/18/17 19:00 77 17 127/77 100 Mechanical Ventilator 30 03/18/17 18:00 59 18 127/47 100 Mechanical Ventilator 30 03/18/17 17:00 30 03/18/17 17:00 59 18 121/69 100 Mechanical Ventilator 30 03/18/17 16:50 77 19 30 03/18/17 16:00 98.7 72 24 137/78 98 Mechanical Ventilator 30 03/18/17 16:00 69 03/18/17 15:00 67 19 131/40 100 Mechanical Ventilator 30 03/18/17 14:30 72 19 30 03/18/17 14:00 69 19 155/55 100 Mechanical Ventilator 30 03/18/17 13:26 30 03/18/17 13:12 74 23 30 03/18/17 13:00 76 20 149/55 100 Mechanical Ventilator 30 03/18/17 12:00 30 03/18/17 12:00 79 03/18/17 12:00 99.0 20 24 154/54 100 Mechanical Ventilator 30 03/18/17 11:00 73 18 132/66 100 Mechanical Ventilator 30 03/18/17 10:45 100 03/18/17 10:45 70 18 30 03/18/17 10:00 66 18 132/45 100 Mechanical Ventilator 30 03/18/17 09:05 30 03/18/17 09:04 72 18 30 03/18/17 09:00 73 18 114/84 100 Mechanical Ventilator 30 03/18/17 08:00 98.7 69 18 141/47 100 Mechanical Ventilator 30 03/18/17 08:00 30 03/18/17 08:00 68 03/18/17 07:29 124/38 03/18/17 07:00 97 18 124/38 98 Mechanical Ventilator 30 03/18/17 06:40 70 18 30 03/18/17 06:00 63 18 136/43 100 Mechanical Ventilator 30 03/18/17 05:03 73 18 30 03/18/17 05:00 75 18 149/51 97 Mechanical Ventilator 30 03/18/17 04:00 30 03/18/17 04:00 98.5 79 18 148/46 99 Mechanical Ventilator 30 03/18/17 03:59 72 03/18/17 03:30 78 18 30 03/18/17 03:00 79 18 126/46 98 Mechanical Ventilator 30 03/18/17 02:00 79 18 127/45 99 Mechanical Ventilator 30 03/18/17 01:30 74 18 30 03/18/17 01:00 63 18 115/42 100 Mechanical Ventilator 30 03/18/17 00:00 30 03/18/17 00:00 98.7 65 18 114/41 100 Mechanical Ventilator 30 03/17/17 23:36 66 03/17/17 23:30 70 18 30 03/17/17 23:00 72 18 137/49 100 Mechanical Ventilator 30 03/17/17 22:00 72 18 145/42 100 Mechanical Ventilator 30 03/17/17 21:07 80 20 30 03/17/17 21:00 79 18 146/71 99 Mechanical Ventilator 30 03/17/17 20:01 71 03/17/17 20:00 30 03/17/17 20:00 99.5 80 18 145/40 98 Mechanical Ventilator 30 03/17/17 19:30 86 19 30 Intake and Output 03/18/17 03/19/17 19:00 07:00 Intake Total 890.66 ml Output Total 535 ml Balance 355.66 ml Free Water 100 ml IV Total 250.66 ml Tube Feeding 540 ml Output Urine Total 535 ml Laboratory Tests 03/18/17 05:20: White Blood Count 6.8, Red Blood Count 2.84L, Hemoglobin 9.7L, Hematocrit 28.7L , Mean Corpuscular Volume 101H, Mean Corpuscular Hemoglobin 34.3H, Mean Corpuscular Hemoglobin Concent 33.8, Red Cell Distribution Width 15.1H, Platelet Count 264, Mean Platelet Volume 9.8, Neutrophils (%) (Auto) 68.7, Lymphocytes (%) (Auto) 18.1L, Monocytes (%) (Auto) 8.7, Eosinophils (%) (Auto) 2.5, Basophils (%) (Auto) 2.0, Sodium Level 143, Potassium Level 3.9, Chloride Level 107, Carbon Dioxide Level 24, Anion Gap 12, Blood Urea Nitrogen 25H, Creatinine 0.6, Estimat Glomerular Filtration Rate , Glucose Level 226#H, Calcium Level 9.2 Height (Feet): 5 Height (Inches): 2.00 Weight (Pounds): 132 General Appearance: no apparent distress Cardiovascular: normal rate, regular rhythm Respiratory/Chest: chest wall non-tender, lungs clear, decreased breath sounds Abdomen: normal bowel sounds, distended Extremities: normal range of motion KLEYNBERG,REBEKAH Mar 18, 2017 19:19
--- NOTE | 2017-03-18 23:48 | Infectious Diseases Prog Note ---
Assessment/Plan Assessment/Plan IMPRESSION: MRSA pneumonia. leukocytosis resolved, and improved hemodynamics and resolution of lactic acidosis. 1. Severe sepsis with multiorgan failure, improving, secondary to pneumonia s/p recent admission for hypoxemic resp failure and pneumonia, treated with D#7 IV vanc/cefepime completed on [id number] 03/12 ucx neg 03/12 blood cx ngtd at 72 hrs. 2. Bibasilar staph aureus pneumonia 3. Acute respiratory failure. 4. Acute renal failure. 5. Diabetes type 2 with hyperglycemia. 6. Dementia. 7. Methicillin resistant Staphylococcus aureus colonization. 8. lactic acidosis, resolved RECOMMENDATION: --continue IV vancomycin D# 6 of 10 (03/15 s/p IV meropenem D#4) --monitor blood cx --monitor CBC --monitor temp curve Subjective Constitutional: Denies: no symptoms, fever, chills, fatigue, anorexia, drenching sweats, other Allergies: Coded Allergies: LORAZEPAM (Unverified Allergy, Unknown, 03/02/17) METOCLOPRAMIDE (Unverified Allergy, Unknown, 03/02/17) QUETIAPINE (Unverified Allergy, Unknown, 03/02/17) ZOLPIDEM (Unverified Allergy, Unknown, 03/02/17) Objective Vital Signs Last 24 Hour Vital Signs Date Time Temp Pulse Resp B/P (MAP) Pulse Ox O2 Delivery O2 Flow Rate FiO2 03/18/17 23:13 94 19 30 03/18/17 22:00 69 16 127/54 99 Mechanical Ventilator 30 03/18/17 21:30 68 18 30 03/18/17 21:00 69 16 145/53 100 Mechanical Ventilator 30 03/18/17 20:00 68 03/18/17 20:00 98.7 68 18 147/55 98 Mechanical Ventilator 30 03/18/17 19:30 69 18 30 03/18/17 19:00 77 17 127/77 100 Mechanical Ventilator 30 03/18/17 18:00 59 18 127/47 100 Mechanical Ventilator 30 03/18/17 17:00 30 03/18/17 17:00 59 18 121/69 100 Mechanical Ventilator 30 03/18/17 16:50 77 19 30 03/18/17 16:00 98.7 72 24 137/78 98 Mechanical Ventilator 30 03/18/17 16:00 69 03/18/17 15:00 67 19 131/40 100 Mechanical Ventilator 30 03/18/17 14:30 72 19 30 03/18/17 14:00 69 19 155/55 100 Mechanical Ventilator 30 03/18/17 13:26 30 03/18/17 13:12 74 23 30 03/18/17 13:00 76 20 149/55 100 Mechanical Ventilator 30 03/18/17 12:00 30 03/18/17 12:00 79 03/18/17 12:00 99.0 20 24 154/54 100 Mechanical Ventilator 30 03/18/17 11:00 73 18 132/66 100 Mechanical Ventilator 30 03/18/17 10:45 100 03/18/17 10:45 70 18 30 03/18/17 10:00 66 18 132/45 100 Mechanical Ventilator 30 03/18/17 09:05 30 03/18/17 09:04 72 18 30 03/18/17 09:00 73 18 114/84 100 Mechanical Ventilator 30 03/18/17 08:00 98.7 69 18 141/47 100 Mechanical Ventilator 30 03/18/17 08:00 30 03/18/17 08:00 68 03/18/17 07:29 124/38 03/18/17 07:00 97 18 124/38 98 Mechanical Ventilator 30 03/18/17 06:40 70 18 30 03/18/17 06:00 63 18 136/43 100 Mechanical Ventilator 30 03/18/17 05:03 73 18 30 03/18/17 05:00 75 18 149/51 97 Mechanical Ventilator 30 03/18/17 04:00 30 03/18/17 04:00 98.5 79 18 148/46 99 Mechanical Ventilator 30 03/18/17 03:59 72 03/18/17 03:30 78 18 30 03/18/17 03:00 79 18 126/46 98 Mechanical Ventilator 30 03/18/17 02:00 79 18 127/45 99 Mechanical Ventilator 30 03/18/17 01:30 74 18 30 03/18/17 01:00 63 18 115/42 100 Mechanical Ventilator 30 03/18/17 00:00 30 03/18/17 00:00 98.7 65 18 114/41 100 Mechanical Ventilator 30 Height (Feet): 5 Height (Inches): 2.00 Weight (Pounds): 132 HEENT: anicteric Respiratory/Chest: normal breath sounds Cardiovascular: regular rhythm Abdomen: soft, non tender Laboratory Tests Test 03/18/17 05:20 White Blood Count 6.8 K/UL (4.8-10.8) Red Blood Count 2.84 M/UL (4.20-5.40) L Hemoglobin 9.7 G/DL (12.0-16.0) L Hematocrit 28.7 % (37.0-47.0) L Mean Corpuscular Volume 101 FL (80-99) H Mean Corpuscular Hemoglobin 34.3 PG (27.0-31.0) H Mean Corpuscular Hemoglobin Concent 33.8 G/DL (32.0-36.0) Red Cell Distribution Width 15.1 % (11.6-14.8) H Platelet Count 264 K/UL (150-450) Mean Platelet Volume 9.8 FL (6.5-10.1) Neutrophils (%) (Auto) 68.7 % (45.0-75.0) Lymphocytes (%) (Auto) 18.1 % (20.0-45.0) L Monocytes (%) (Auto) 8.7 % (1.0-10.0) Eosinophils (%) (Auto) 2.5 % (0.0-3.0) Basophils (%) (Auto) 2.0 % (0.0-2.0) Sodium Level 143 mEQ/L (135-145) Potassium Level 3.9 mEQ/L (3.4-4.9) Chloride Level 107 mEQ/L (98-107) Carbon Dioxide Level 24 mEQ/L (20-30) Anion Gap 12 (5-15) Blood Urea Nitrogen 25 mg/dL (7-23) H Creatinine 0.6 mg/dL (0.5-0.9) Estimat Glomerular Filtration Rate mL/min (>60) Glucose Level 226 mg/dL (74-106) #H Calcium Level 9.2 mg/dL (8.6-10.2) Current Medications Medications (Trade) Dose Ordered Sig/Ramiro Route PRN Reason Start Time Stop Time Status Last Admin Dose Admin Acetaminophen (Tylenol) 650 mg Q4H PRN ORAL fever>100.5 03/12/17 07:30 04/11/17 07:29 Albuterol/ Ipratropium (DuoNeb 0.5-3(2.5)mg/3ml) 3 ml Q4H PRN HHN Shortness of Breath 03/16/17 16:00 03/21/17 15:59 Artificial Tears (Akwa-Tears) 2 drop Q2H PRN BOTH EYES Dry Eyes 03/15/17 16:30 04/14/17 16:29 03/16/17 00:54 Dextrose (Dextrose 50%) STAT PRN IV Hypoglycemia 03/12/17 10:00 04/11/17 09:59 Famotidine (Pepcid I.v.) 20 mg DAILY IVP 03/13/17 10:00 04/12/17 09:59 03/18/17 08:12 Heparin Sodium (Porcine) (Heparin 5000 units/ml) 5,000 units EVERY 12 HOURS SUBQ 03/12/17 09:00 04/11/17 08:59 03/18/17 20:32 Insulin Aspart (NovoLOG) Q4H SUBQ 03/12/17 12:00 04/11/17 11:59 03/18/17 20:05 Insulin Detemir (Levemir) 5 units DAILY SUBQ 03/15/17 14:00 04/14/17 13:59 03/18/17 08:12 Morphine Sulfate (Morphine Sulfate) 4 mg Q4H PRN IVP Severe Pain (Pain Scale 7-10) 03/12/17 07:30 03/19/17 07:29 03/15/17 18:48 Norepinephrine Bitartrate 4 mg/ Dextrose 254 ml @ 0 mls/hr Q24H IV 03/12/17 07:30 04/11/17 07:29 Ondansetron HCl (Zofran) 4 mg Q6H PRN IVP Nausea & Vomiting 03/12/17 07:30 04/11/17 07:29 Polyethylene Glycol (Miralax) 17 gm DAILYPRN PRN ORAL Constipation 03/12/17 07:30 04/11/17 07:29 Vancomycin HCl (Vanco rx to dose) 1 ea DAILY PRN MISC PER RX PROTOCOL 03/13/17 11:30 04/12/17 11:29 Vancomycin/Sodium Chloride 250 ml @ 166.667 mls/hr Q24H IVPB 03/16/17 17:00 03/21/17 16:59 03/18/17 17:01 HUSEYIN BERNARD M.D. Mar 18, 2017 23:48
[2017-03-19] VITALS (24 sets, daily range): BP systolic 114–160; BP diastolic 37–90
[2017-03-19] MEDS: NovoLOG Insulin Flexpen SUBQ SCH ×6 (00:26→20:18)
--- NOTE | 2017-03-19 00:46 | Wound Care Consultation ---
Wound Assessment Wound Assessment #1: Wound Present on Admission: No New Wound: Yes Status Change of Wound: No Wound Location Body Site Modif: mid, upper Wound Location Body Site: back Wound Type: blister - open Gilbert Test: Does not Gilbert Pressure Ulcer Stage: II Wound Thickness: Partial Thickness Wound Length: 0.8 Wound Width: 0.8 Wound Depth: less than 0.1 Percent of Wound [place]/Red: 100 Wound Drainage Description: Serosanguineous Wound Drainage Amount: Scant Wound Drainage Odor: None/Absent Tissue Surrounding Wound: Intact Wound General Appearance: Reddened Wound Assessment #2: Wound Number: 2 Wound Present on Admission: Yes New Wound: No Status Change of Wound: No Wound Location Body Site Modif: mid Wound Location Body Site: sacral Wound Type: pressure ulcer Gilbert Test: Does not Gilbert Pressure Ulcer Stage: deep tissue injury Wound Thickness: Full Thickness Wound Length: 2.5 Wound Width: 2.5 Wound Depth: utd Percent of Wound Purple/Maroon: 100 Wound Drainage Amount: None Wound Drainage Odor: None/Absent Tissue Surrounding Wound: Erythemic Wound Assessment #3: Wound Number: 3 Wound Present on Admission: Yes New Wound: No Status Change of Wound: No Wound Location Body Site Modif: right, upper Wound Location Body Site: thigh Wound Type: blister - open blister Gilbert Test: Does not Gilbert Wound Thickness: Partial Thickness Wound Length: 3.0 Wound Width: 3.0 Wound Depth: less than 0.1 Percent of Wound [place]/Red: 100 Wound Drainage Description: Serosanguineous Wound Drainage Amount: Scant Wound Drainage Odor: None/Absent Tissue Surrounding Wound: Intact Wound General Appearance: Reddened, Draining Wound Comment #1 Sacral DTI pressure ulcer #2 Mid upper back stage II open blister #3 Right upper thigh open blister Recommendation -Local wound care per protocol -Keep clean and dry -Turn and reposition -Optimize nutrition -Offload both heels -Heel protector on both heels -Low air loss mattress -Assess and f/u accordingly for any changes STELLA HSIEH RN Mar 19, 2017 00:46
[2017-03-19 05:29] LABS: BASOPHILS % (AUTO) 2.1 % (0.0-2.0); EOSINOPHILS % (AUTO) 2.7 % (0.0-3.0); LYMPHOCYTES % (AUTO) 15.2 % (20.0-45.0); MEAN CORPUSCULAR HEMOGLOBIN 34.2 PG (27.0-31.0); MEAN CORPUSCULAR HGB CONC 33.7 G/DL (32.0-36.0); MEAN CORPUSCULAR VOLUME 102 FL (80-99); MONOCYTES % (AUTO) 14.6 % (1.0-10.0); NEUTROPHILS % (AUTO) 65.4 % (45.0-75.0); PLATELET COUNT 292 K/UL (150-450); RED BLOOD COUNT 2.69 M/UL (4.20-5.40); RED CELL DISTRIBUTION WIDTH 15.1 % (11.6-14.8); WHITE BLOOD COUNT 7.1 K/UL (4.8-10.8)
[2017-03-19 06:14] LABS: ALANINE AMINOTRANSFERASE 17 U/L (3-33); ALBUMIN/GLOBULIN RATIO 0.5 (1.0-2.7); ANION GAP 10 (5-15); ASPARTATE AMINO TRANSFERASE 36 U/L (5-40); CALCIUM 9.4 mg/dL (8.6-10.2); CARBON DIOXIDE 26 mEQ/L (20-30); CHLORIDE 105 mEQ/L (98-107); CREATININE 0.6 mg/dL (0.5-0.9); HEMOLYSIS 5; MAGNESIUM 1.9 mg/dL (1.7-2.5); PHOSPHORUS 2.6 mg/dL (2.5-4.8); SODIUM 141 mEQ/L (135-145); TOTAL PROTEIN 5.6 g/dL (6.6-8.7)
[2017-03-19] MEDS: Levemir Flexpen SUBQ SCH (08:38)
[2017-03-19] MEDS: Famotidine 20 MG/ 2ML VIAL IVP SCH (08:39)
[2017-03-19] MEDS: Heparin 5000 units/ml inj SUBQ SCH ×2 (08:39→21:16)
[2017-03-19 09:35] LABS: ABG BASE EXCESS 4.4; ABG PCO2 35.4 mmHg (35.0-45.0)
[2017-03-19 09:36] LABS: ABG ALLEN TEST POSITIVE
--- NOTE | 2017-03-19 10:26 | Pulmonolgy Critical Care Note ---
Critical Care - Asmt/Plan Problems: (1) Respiratory failure requiring intubation (2) Pneumonia (3) Anemia (4) Advanced dementia (5) Feeding by G-tube (6) Severe sepsis Respiratory: monitor respiratory rate, adjust FIO2, CXR Cardiac: continue pressors Renal: F/U I&O, keep IV fluid Infectious Disease: check cultures, continue antibiotics Gastrointestinal: continue feedings/current rate Endocrine: monitor blood sugar, check HgA1C Hematologic: transfuse if hgb<8.5 Neurologic: PRN Ativan, PRN Morphine, keep patient comfortable Prophylaxis: Protonix, Heparin Notes Reviewed: electrical appliance repairer, cardio Discussed with: nurses, 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 - Objective Last 24 Hour Vital Signs Date Time Temp Pulse Resp B/P (MAP) Pulse Ox O2 Delivery O2 Flow Rate FiO2 03/19/17 10:00 61 18 140/69 100 Mechanical Ventilator 30 03/19/17 09:00 66 18 149/53 100 Mechanical Ventilator 30 03/19/17 09:00 62 18 30 03/19/17 08:00 64 03/19/17 08:00 30 03/19/17 08:00 98.5 64 17 127/77 100 Mechanical Ventilator 03/19/17 07:16 117/65 03/19/17 07:00 62 17 117/65 100 Mechanical Ventilator 03/19/17 06:53 63 18 30 03/19/17 06:00 65 18 126/47 100 Mechanical Ventilator 03/19/17 05:22 55 18 30 03/19/17 05:00 59 18 114/38 100 Mechanical Ventilator 03/19/17 04:00 98.7 60 18 125/79 98 Mechanical Ventilator 03/19/17 04:00 30 03/19/17 04:00 60 03/19/17 03:23 56 18 30 03/19/17 03:00 60 18 114/74 100 Mechanical Ventilator 03/19/17 02:00 58 18 115/37 100 Mechanical Ventilator 03/19/17 01:00 57 18 119/37 99 Mechanical Ventilator 30 03/19/17 00:09 71 17 30 03/19/17 00:00 30 03/19/17 00:00 98.9 61 18 148/46 98 Mechanical Ventilator 30 03/18/17 23:13 94 19 30 03/18/17 23:00 70 16 118/80 99 Mechanical Ventilator 30 03/18/17 22:00 69 16 127/54 99 Mechanical Ventilator 30 03/18/17 21:30 68 18 30 03/18/17 21:00 69 16 145/53 100 Mechanical Ventilator 30 03/18/17 20:00 68 03/18/17 20:00 98.7 68 18 147/55 98 Mechanical Ventilator 30 03/18/17 19:30 69 18 30 03/18/17 19:00 77 17 127/77 100 Mechanical Ventilator 30 03/18/17 18:00 59 18 127/47 100 Mechanical Ventilator 30 03/18/17 17:00 30 03/18/17 17:00 59 18 121/69 100 Mechanical Ventilator 30 03/18/17 16:50 77 19 30 03/18/17 16:00 98.7 72 24 137/78 98 Mechanical Ventilator 30 03/18/17 16:00 69 03/18/17 15:00 67 19 131/40 100 Mechanical Ventilator 03/18/17 14:30 72 19 30 03/18/17 14:00 69 19 155/55 100 Mechanical Ventilator 30 03/18/17 13:26 30 03/18/17 13:12 74 23 30 03/18/17 13:00 76 20 149/55 100 Mechanical Ventilator 30 03/18/17 12:00 30 03/18/17 12:00 79 03/18/17 12:00 99.0 20 24 154/54 100 Mechanical Ventilator 30 03/18/17 11:00 73 18 132/66 100 Mechanical Ventilator 30 03/18/17 10:45 100 03/18/17 10:45 70 18 30 Status: awake Condition: critical HEENT: atraumatic, normocephalic Lungs: clear, chest wall tender Heart: HR/BP stable, regular Abdomen: soft, non-tender, feeding tube Extremities: no C/C/E, edema Decubiti: location, stage Accucheck: 259 Critical Care - Subjective ROS Limited/Unobtainable: Yes ICU Day: 7 Intubation Day: 7 Condition: critical FI02: 30 Vent Support Breath Rate: 18 Vent Support Mode: AC Vent Tidal Volume: 500 Sputum Amount: Scant PEEP: 5.0 PIP: 23 Secretions: small Tube Feeding Amount: 45 I&O: Intake and Output 03/19/17 03/20/17 19:00 07:00 Intake Total 175 ml Output Total 95 ml Balance 80 ml Free Water 40 ml Tube Feeding 135 ml Output Urine Total 95 ml CXR: no change, ET in good position ET-Tube: 7.0 ET Position: 21 Labs: Laboratory Tests Test 03/19/17 03:50 03/19/17 09:25 White Blood Count 7.1 K/UL (4.8-10.8) Red Blood Count 2.69 M/UL (4.20-5.40) L Hemoglobin 9.2 G/DL (12.0-16.0) L Hematocrit 27.3 % (37.0-47.0) L Mean Corpuscular Volume 102 FL (80-99) H Mean Corpuscular Hemoglobin 34.2 PG (27.0-31.0) H Mean Corpuscular Hemoglobin Concent 33.7 G/DL (32.0-36.0) Red Cell Distribution Width 15.1 % (11.6-14.8) H Platelet Count 292 K/UL (150-450) Mean Platelet Volume 10.0 FL (6.5-10.1) Neutrophils (%) (Auto) 65.4 % (45.0-75.0) Lymphocytes (%) (Auto) 15.2 % (20.0-45.0) L Monocytes (%) (Auto) 14.6 % (1.0-10.0) H Eosinophils (%) (Auto) 2.7 % (0.0-3.0) Basophils (%) (Auto) 2.1 % (0.0-2.0) H Sodium Level 141 mEQ/L (135-145) Potassium Level 4.0 mEQ/L (3.4-4.9) Chloride Level 105 mEQ/L (98-107) Carbon Dioxide Level 26 mEQ/L (20-30) Anion Gap 10 (5-15) Blood Urea Nitrogen 23 mg/dL (7-23) Creatinine 0.6 mg/dL (0.5-0.9) Estimat Glomerular Filtration Rate mL/min (>60) Glucose Level 103 mg/dL (74-106) # Calcium Level 9.4 mg/dL (8.6-10.2) Phosphorus Level 2.6 mg/dL (2.5-4.8) Magnesium Level 1.9 mg/dL (1.7-2.5) Total Bilirubin 0.4 mg/dL (0.0-1.2) Aspartate Amino Transf (AST/SGOT) 36 U/L (5-40) Alanine Aminotransferase (ALT/SGPT) 17 U/L (3-33) Alkaline Phosphatase 121 U/L (35-104) H Total Protein 5.6 g/dL (6.6-8.7) L Albumin 2.0 g/dL (3.5-5.2) L Globulin 3.6 g/dL Albumin/Globulin Ratio 0.5 (1.0-2.7) L Arterial Blood pH 7.508 (7.350-7.450) Arterial Blood Partial Pressure CO2 35.4 mmHg (35.0-45.0) Arterial Blood Partial Pressure O2 78.8 mmHg (75.0-100.0) Arterial Blood HCO3 27.5 mmol/L (22.0-26.0) H Arterial Blood Oxygen Saturation 94.8 % (92.0-98.0) Arterial Blood Base Excess 4.4 Shaun Test Positive ZAIRA ROSALES Mar 19, 2017 10:26
--- NOTE | 2017-03-19 12:58 | Diagnostic Imaging Report ---
Indication: Dyspnea Comparison: 03/18/17 A single view chest radiograph was obtained. Findings: Patchy infiltrates noted bilaterally. Endotracheal tube is low and should be pulled up slightly. The tip is right at the pema. Impression: No significant change from the previous day. Endotracheal tube is at the pema and may be pulled up slightly
--- NOTE | 2017-03-19 13:40 | General Progress Note ---
Assessment/Plan Status: stable Status Narrative remains intubated Assessment/Plan Respiratory failure requiring intubation Severe sepsis secondary to pneumonia, resolving UTI Acute cystitis without hematuria Pneumonia, non cavitary, w/o effusion Dementia Acute renal failure , Dehydration Hypoxemic respiratory failure Type 2 diabetes mellitus with hyperglycemia Proteinuria Plan: Pulm support- Monitor renal parameters Urine studies- Avoid Nephrotoxics- Per Orders Subjective ROS Limited/Unobtainable: Yes Allergies: Coded Allergies: LORAZEPAM (Unverified Allergy, Unknown, 03/02/17) METOCLOPRAMIDE (Unverified Allergy, Unknown, 03/02/17) QUETIAPINE (Unverified Allergy, Unknown, 03/02/17) ZOLPIDEM (Unverified Allergy, Unknown, 03/02/17) Objective Last 24 Hour Vital Signs Date Time Temp Pulse Resp B/P (MAP) Pulse Ox O2 Delivery O2 Flow Rate FiO2 03/19/17 13:19 70 24 30 03/19/17 12:00 62 03/19/17 12:00 98.6 62 18 151/59 100 Mechanical Ventilator 03/19/17 11:00 68 18 138/47 100 Mechanical Ventilator 03/19/17 10:55 30 03/19/17 10:50 100 03/19/17 10:50 57 10 30 03/19/17 10:00 61 18 140/69 100 Mechanical Ventilator 03/19/17 09:00 66 18 149/53 100 Mechanical Ventilator 03/19/17 09:00 62 18 03/19/17 08:00 64 03/19/17 08:00 30 03/19/17 08:00 98.5 64 17 127/77 100 Mechanical Ventilator 03/19/17 07:16 117/65 03/19/17 07:00 62 17 117/65 100 Mechanical Ventilator 03/19/17 06:53 63 18 30 03/19/17 06:00 65 18 126/47 100 Mechanical Ventilator 03/19/17 05:22 55 18 30 03/19/17 05:00 59 18 114/38 100 Mechanical Ventilator 03/19/17 04:00 98.7 60 18 125/79 98 Mechanical Ventilator 03/19/17 04:00 30 03/19/17 04:00 60 03/19/17 03:23 56 18 30 03/19/17 03:00 60 18 114/74 100 Mechanical Ventilator 30 03/19/17 02:00 58 18 115/37 100 Mechanical Ventilator 30 03/19/17 01:00 57 18 119/37 99 Mechanical Ventilator 30 03/19/17 00:09 71 17 30 03/19/17 00:00 30 03/19/17 00:00 98.9 61 18 148/46 98 Mechanical Ventilator 30 03/18/17 23:13 94 19 30 03/18/17 23:00 70 16 118/80 99 Mechanical Ventilator 30 03/18/17 22:00 69 16 127/54 99 Mechanical Ventilator 30 03/18/17 21:30 68 18 30 03/18/17 21:00 69 16 145/53 100 Mechanical Ventilator 30 03/18/17 20:00 68 03/18/17 20:00 98.7 68 18 147/55 98 Mechanical Ventilator 30 03/18/17 19:30 69 18 30 03/18/17 19:00 77 17 127/77 100 Mechanical Ventilator 30 03/18/17 18:00 59 18 127/47 100 Mechanical Ventilator 30 03/18/17 17:00 30 03/18/17 17:00 59 18 121/69 100 Mechanical Ventilator 30 03/18/17 16:50 77 19 30 03/18/17 16:00 98.7 72 24 137/78 98 Mechanical Ventilator 30 03/18/17 16:00 69 03/18/17 15:00 67 19 131/40 100 Mechanical Ventilator 30 03/18/17 14:30 72 19 30 03/18/17 14:00 69 19 155/55 100 Mechanical Ventilator 30 Intake and Output 03/19/17 03/20/17 19:00 07:00 Intake Total 265 ml Output Total 175 ml Balance 90 ml Free Water 40 ml Tube Feeding 225 ml Output Urine Total 175 ml Laboratory Tests 03/19/17 03:50: White Blood Count 7.1, Red Blood Count 2.69L, Hemoglobin 9.2L, Hematocrit 27.3L , Mean Corpuscular Volume 102H, Mean Corpuscular Hemoglobin 34.2H, Mean Corpuscular Hemoglobin Concent 33.7, Red Cell Distribution Width 15.1H, Platelet Count 292, Mean Platelet Volume 10.0, Neutrophils (%) (Auto) 65.4, Lymphocytes (%) (Auto) 15.2L, Monocytes (%) (Auto) 14.6H, Eosinophils (%) (Auto ) 2.7, Basophils (%) (Auto) 2.1H, Sodium Level 141, Potassium Level 4.0, Chloride Level 105, Carbon Dioxide Level 26, Anion Gap 10, Blood Urea Nitrogen 23, Creatinine 0.6, Estimat Glomerular Filtration Rate , Glucose Level 103#, Calcium Level 9.4, Phosphorus Level 2.6, Magnesium Level 1.9, Total Bilirubin 0.4, Aspartate Amino Transf (AST/SGOT) 36, Alanine Aminotransferase (ALT/SGPT) 17, Alkaline Phosphatase 121H, Total Protein 5.6L, Albumin 2.0L, Globulin 3.6, Albumin/Globulin Ratio 0.5L 03/19/17 09:25: Arterial Blood pH 7.508H, Arterial Blood Partial Pressure CO2 35.4, Arterial Blood Partial Pressure O2 78.8, Arterial Blood HCO3 27.5H, Arterial Blood Oxygen Saturation 94.8, Arterial Blood Base Excess 4.4, Shaun Test Positive Height (Feet): 5 Height (Inches): 2.00 Weight (Pounds): 127 General Appearance: no apparent distress Objective PE not changed IRWIN DAMON Mar 19, 2017 13:40
[2017-03-19] MEDS ORDERED: NS 275ml ONE ×2 (14:30)
[2017-03-19 16:55] LABS: ABG ALLEN TEST POSITIVE; ABG BASE EXCESS 4.7; ABG PCO2 39.1 mmHg (35.0-45.0)
[2017-03-19] MEDS: Vancomycin 750mg/NS 250ml 250 ML IVPB SCH (17:07)
--- NOTE | 2017-03-19 21:06 | Infectious Diseases Prog Note ---
Assessment/Plan Assessment/Plan IMPRESSION: 1. Severe sepsis with multiorgan failure, improving, secondary to pneumonia s/p recent admission for hypoxemic resp failure and pneumonia, treated with D#7 IV vanc/cefepime completed on [id number] 03/12 ucx neg 03/12 blood cx ngtd at 72 hrs. 2. Bibasilar staph aureus pneumonia 3. Acute respiratory failure. 4. Acute renal failure. 5. Diabetes type 2 with hyperglycemia. 6. Dementia. 7. Methicillin resistant Staphylococcus aureus colonization. 8. lactic acidosis, resolved RECOMMENDATION: --continue IV vancomycin D# 7 of 10 (03/15 s/p IV meropenem D#4) --monitor blood cx --monitor CBC --monitor temp curve -- Wean off Vent as per Pul -- off of pressors Subjective Allergies: Coded Allergies: LORAZEPAM (Unverified Allergy, Unknown, 03/02/17) METOCLOPRAMIDE (Unverified Allergy, Unknown, 03/02/17) QUETIAPINE (Unverified Allergy, Unknown, 03/02/17) ZOLPIDEM (Unverified Allergy, Unknown, 03/02/17) Subjective on wean, protocol off of pressors Objective Vital Signs Last 24 Hour Vital Signs Date Time Temp Pulse Resp B/P (MAP) Pulse Ox O2 Delivery O2 Flow Rate FiO2 03/19/17 19:30 70 18 30 03/19/17 19:00 66 18 145/62 100 Mechanical Ventilator 03/19/17 18:00 67 18 136/59 100 Mechanical Ventilator 03/19/17 17:00 68 18 140/51 100 Mechanical Ventilator 03/19/17 16:45 77 24 03/19/17 16:00 75 03/19/17 16:00 98.2 75 25 157/53 100 Mechanical Ventilator 03/19/17 15:30 72 26 30 03/19/17 15:05 76 27 30 03/19/17 15:00 76 19 153/59 100 Mechanical Ventilator 03/19/17 14:00 76 20 121/90 100 Mechanical Ventilator 30 03/19/17 13:30 30 03/19/17 13:19 70 24 30 03/19/17 13:00 70 20 147/62 100 Mechanical Ventilator 03/19/17 12:00 62 03/19/17 12:00 98.6 62 18 151/59 100 Mechanical Ventilator 30 03/19/17 11:00 68 18 138/47 100 Mechanical Ventilator 30 03/19/17 10:55 30 03/19/17 10:50 100 03/19/17 10:50 57 10 30 03/19/17 10:00 61 18 140/69 100 Mechanical Ventilator 30 03/19/17 09:00 66 18 149/53 100 Mechanical Ventilator 30 03/19/17 09:00 62 18 30 03/19/17 08:00 64 03/19/17 08:00 30 03/19/17 08:00 98.5 64 17 127/77 100 Mechanical Ventilator 30 03/19/17 07:16 117/65 03/19/17 07:00 62 17 117/65 100 Mechanical Ventilator 30 03/19/17 06:53 63 18 30 03/19/17 06:00 65 18 126/47 100 Mechanical Ventilator 30 03/19/17 05:22 55 18 30 03/19/17 05:00 59 18 114/38 100 Mechanical Ventilator 30 03/19/17 04:00 98.7 60 18 125/79 98 Mechanical Ventilator 30 03/19/17 04:00 30 03/19/17 04:00 60 03/19/17 03:23 56 18 30 03/19/17 03:00 60 18 114/74 100 Mechanical Ventilator 30 03/19/17 02:00 58 18 115/37 100 Mechanical Ventilator 30 03/19/17 01:00 57 18 119/37 99 Mechanical Ventilator 30 03/19/17 00:09 71 17 30 03/19/17 00:00 30 03/19/17 00:00 98.9 61 18 148/46 98 Mechanical Ventilator 30 03/18/17 23:13 94 19 30 03/18/17 23:00 70 16 118/80 99 Mechanical Ventilator 30 03/18/17 22:00 69 16 127/54 99 Mechanical Ventilator 30 03/18/17 21:30 68 18 30 Height (Feet): 5 Height (Inches): 2.00 Weight (Pounds): 127 HEENT: anicteric Respiratory/Chest: no respiratory distress Cardiovascular: regular rhythm Abdomen: no organomegaly Laboratory Tests Test 03/19/17 03:50 03/19/17 09:25 03/19/17 16:40 White Blood Count 7.1 K/UL (4.8-10.8) Red Blood Count 2.69 M/UL (4.20-5.40) L Hemoglobin 9.2 G/DL (12.0-16.0) L Hematocrit 27.3 % (37.0-47.0) L Mean Corpuscular Volume 102 FL (80-99) H Mean Corpuscular Hemoglobin 34.2 PG (27.0-31.0) H Mean Corpuscular Hemoglobin Concent 33.7 G/DL (32.0-36.0) Red Cell Distribution Width 15.1 % (11.6-14.8) H Platelet Count 292 K/UL (150-450) Mean Platelet Volume 10.0 FL (6.5-10.1) Neutrophils (%) (Auto) 65.4 % (45.0-75.0) Lymphocytes (%) (Auto) 15.2 % (20.0-45.0) L Monocytes (%) (Auto) 14.6 % (1.0-10.0) H Eosinophils (%) (Auto) 2.7 % (0.0-3.0) Basophils (%) (Auto) 2.1 % (0.0-2.0) H Sodium Level 141 mEQ/L (135-145) Potassium Level 4.0 mEQ/L (3.4-4.9) Chloride Level 105 mEQ/L (98-107) Carbon Dioxide Level 26 mEQ/L (20-30) Anion Gap 10 (5-15) Blood Urea Nitrogen 23 mg/dL (7-23) Creatinine 0.6 mg/dL (0.5-0.9) Estimat Glomerular Filtration Rate mL/min (>60) Glucose Level 103 mg/dL (74-106) # Calcium Level 9.4 mg/dL (8.6-10.2) Phosphorus Level 2.6 mg/dL (2.5-4.8) Magnesium Level 1.9 mg/dL (1.7-2.5) Total Bilirubin 0.4 mg/dL (0.0-1.2) Aspartate Amino Transf (AST/SGOT) 36 U/L (5-40) Alanine Aminotransferase (ALT/SGPT) 17 U/L (3-33) Alkaline Phosphatase 121 U/L (35-104) H Total Protein 5.6 g/dL (6.6-8.7) L Albumin 2.0 g/dL (3.5-5.2) L Globulin 3.6 g/dL Albumin/Globulin Ratio 0.5 (1.0-2.7) L Arterial Blood pH 7.508 (7.350-7.450) 7.481 (7.350-7.450) Arterial Blood Partial Pressure CO2 35.4 mmHg (35.0-45.0) 39.1 mmHg (35.0-45.0) Arterial Blood Partial Pressure O2 78.8 mmHg (75.0-100.0) 87.9 mmHg (75.0-100.0) Arterial Blood HCO3 27.5 mmol/L (22.0-26.0) H 28.5 mmol/L (22.0-26.0) H Arterial Blood Oxygen Saturation 94.8 % (92.0-98.0) 96.6 % (92.0-98.0) Arterial Blood Base Excess 4.4 4.7 Shaun Test Positive Positive Current Medications Medications (Trade) Dose Ordered Sig/Ramiro Route PRN Reason Start Time Stop Time Status Last Admin Dose Admin Acetaminophen (Tylenol) 650 mg Q4H PRN ORAL fever>100.5 03/12/17 07:30 04/11/17 07:29 Albuterol/ Ipratropium (DuoNeb 0.5-3(2.5)mg/3ml) 3 ml Q4H PRN HHN Shortness of Breath 03/16/17 16:00 03/21/17 15:59 Artificial Tears (Akwa-Tears) 2 drop Q2H PRN BOTH EYES Dry Eyes 03/15/17 16:30 04/14/17 16:29 03/16/17 00:54 Dextrose (Dextrose 50%) STAT PRN IV Hypoglycemia 03/12/17 10:00 04/11/17 09:59 Famotidine (Pepcid I.v.) 20 mg DAILY IVP 03/13/17 10:00 04/12/17 09:59 03/19/17 08:39 Heparin Sodium (Porcine) (Heparin 5000 units/ml) 5,000 units EVERY 12 HOURS SUBQ 03/12/17 09:00 04/11/17 08:59 03/19/17 08:39 Insulin Aspart (NovoLOG) Q4H SUBQ 03/12/17 12:00 04/11/17 11:59 03/19/17 20:18 Insulin Detemir (Levemir) 5 units DAILY SUBQ 03/15/17 14:00 04/14/17 13:59 03/19/17 08:38 Norepinephrine Bitartrate 4 mg/ Dextrose 254 ml @ 0 mls/hr Q24H IV 03/12/17 07:30 04/11/17 07:29 Ondansetron HCl (Zofran) 4 mg Q6H PRN IVP Nausea & Vomiting 03/12/17 07:30 04/11/17 07:29 Polyethylene Glycol (Miralax) 17 gm DAILYPRN PRN ORAL Constipation 03/12/17 07:30 04/11/17 07:29 Vancomycin HCl (Vanco rx to dose) 1 ea DAILY PRN MISC PER RX PROTOCOL 03/13/17 11:30 04/12/17 11:29 Vancomycin/Sodium Chloride 250 ml @ 166.667 mls/hr Q24H IVPB 03/16/17 17:00 03/21/17 16:59 03/19/17 17:07 HUSEYIN BERNARD M.D. Mar 19, 2017 21:06
--- NOTE | 2017-03-19 23:38 | General Progress Note ---
Assessment/Plan Status: unchanged Assessment/Plan 1. Leukocytosis, secondary to underlying sepsis. Continue monitoring. --> Has been resolved --> on abx per id service 2. Anemia secondary to chronic disease. Ferritin is elevated, TIBC is low. --> transfuse if hgb is less than 8 or symptomatic --> monitor counts --> has been stable >8 --> occult blood negative and hiv panel negative 4. Coagulopathy, potentially secondary to underlying sepsis as well. --> PTT is elevated. Prothrombin time is elevated. --> continue to monitor levels 5. Methicillin-resistant Staphylococcus aureus colonization. 6. Respiratory failure, status post intubation. 7. Acute kidney injury. --> nephrology following Subjective Date patient seen: Mar 19, 2017 Time patient seen: 06:00 Constitutional: Denies: no symptoms, chills, diaphoresis, fever, malaise, weakness, other HEENT: Denies: no symptoms, eye pain, blurred vision, tearing, double vision, ear pain, ear discharge, nose pain, nose congestion, throat pain, throat swelling, mouth pain, mouth swelling, other Cardiovascular: Denies: no symptoms, chest pain, edema, irregular heart rate, lightheadedness, palpitations, syncope, other Respiratory: Denies: no symptoms, cough, orthopnea, shortness of breath, SOB with excertion, SOB at rest, sputum, stridor, wheezing, other Gastrointestinal/Abdominal: Denies: no symptoms, abdomen distended, abdominal pain, black stools, tarry stools, blood in stool, constipated, diarrhea, difficulty swallowing, nausea, poor appetite, poor fluid intake, rectal bleeding , vomiting, other Genitourinary: Denies: no symptoms, burning, discharge, frequency, flank pain, hematuria, incontinence, pain, urgency, other Neurologic/Psychiatric: Denies: no symptoms, anxiety, depressed, emotional problems, headache, numbness, paresthesia, pre-existing deficit, seizure, tingling, tremors, weakness, other Hematologic/Lymphatic: Reports: anemia Allergies: Coded Allergies: LORAZEPAM (Unverified Allergy, Unknown, 03/02/17) METOCLOPRAMIDE (Unverified Allergy, Unknown, 03/02/17) QUETIAPINE (Unverified Allergy, Unknown, 03/02/17) ZOLPIDEM (Unverified Allergy, Unknown, 03/02/17) Subjective Patient intubated. Hemoglobin has been stable. Afebrile. No acute distress. Comfortable. Objective Last 24 Hour Vital Signs Date Time Temp Pulse Resp B/P (MAP) Pulse Ox O2 Delivery O2 Flow Rate FiO2 03/19/17 22:00 59 18 129/41 100 Mechanical Ventilator 30 03/19/17 21:30 72 18 30 03/19/17 21:00 64 18 120/40 100 Mechanical Ventilator 30 03/19/17 20:00 99.0 64 18 160/47 100 Mechanical Ventilator 30 03/19/17 19:30 70 18 30 03/19/17 19:00 66 18 145/62 100 Mechanical Ventilator 30 03/19/17 18:00 67 18 136/59 100 Mechanical Ventilator 30 03/19/17 17:00 68 18 140/51 100 Mechanical Ventilator 30 03/19/17 16:45 77 24 30 03/19/17 16:00 75 03/19/17 16:00 98.2 75 25 157/53 100 Mechanical Ventilator 30 03/19/17 15:30 72 26 30 03/19/17 15:05 76 27 30 03/19/17 15:00 76 19 153/59 100 Mechanical Ventilator 30 03/19/17 14:00 76 20 121/90 100 Mechanical Ventilator 30 03/19/17 13:30 30 03/19/17 13:19 70 24 30 03/19/17 13:00 70 20 147/62 100 Mechanical Ventilator 30 03/19/17 12:00 62 03/19/17 12:00 98.6 62 18 151/59 100 Mechanical Ventilator 03/19/17 11:00 68 18 138/47 100 Mechanical Ventilator 30 03/19/17 10:55 30 03/19/17 10:50 100 03/19/17 10:50 57 10 30 03/19/17 10:00 61 18 140/69 100 Mechanical Ventilator 30 03/19/17 09:00 66 18 149/53 100 Mechanical Ventilator 30 03/19/17 09:00 62 18 30 03/19/17 08:00 64 03/19/17 08:00 30 03/19/17 08:00 98.5 64 17 127/77 100 Mechanical Ventilator 30 03/19/17 07:16 117/65 03/19/17 07:00 62 17 117/65 100 Mechanical Ventilator 30 03/19/17 06:53 63 18 30 03/19/17 06:00 65 18 126/47 100 Mechanical Ventilator 30 03/19/17 05:22 55 18 30 03/19/17 05:00 59 18 114/38 100 Mechanical Ventilator 30 03/19/17 04:00 98.7 60 18 125/79 98 Mechanical Ventilator 30 03/19/17 04:00 30 03/19/17 04:00 60 03/19/17 03:23 56 18 30 03/19/17 03:00 60 18 114/74 100 Mechanical Ventilator 30 03/19/17 02:00 58 18 115/37 100 Mechanical Ventilator 30 03/19/17 01:00 57 18 119/37 99 Mechanical Ventilator 03/19/17 00:09 71 17 30 03/19/17 00:00 30 03/19/17 00:00 98.9 61 18 148/46 98 Mechanical Ventilator 30 Intake and Output 03/19/17 03/20/17 19:00 07:00 Intake Total 943.2 ml 180 ml Output Total 415 ml 160 ml Balance 528.2 ml 20 ml Free Water 70 ml IV Total 333.2 ml Tube Feeding 540 ml 180 ml Output Urine Total 415 ml 160 ml Laboratory Tests 03/19/17 03:50: White Blood Count 7.1, Red Blood Count 2.69L, Hemoglobin 9.2L, Hematocrit 27.3L , Mean Corpuscular Volume 102H, Mean Corpuscular Hemoglobin 34.2H, Mean Corpuscular Hemoglobin Concent 33.7, Red Cell Distribution Width 15.1H, Platelet Count 292, Mean Platelet Volume 10.0, Neutrophils (%) (Auto) 65.4, Lymphocytes (%) (Auto) 15.2L, Monocytes (%) (Auto) 14.6H, Eosinophils (%) (Auto ) 2.7, Basophils (%) (Auto) 2.1H, Sodium Level 141, Potassium Level 4.0, Chloride Level 105, Carbon Dioxide Level 26, Anion Gap 10, Blood Urea Nitrogen 23, Creatinine 0.6, Estimat Glomerular Filtration Rate , Glucose Level 103#, Calcium Level 9.4, Phosphorus Level 2.6, Magnesium Level 1.9, Total Bilirubin 0.4, Aspartate Amino Transf (AST/SGOT) 36, Alanine Aminotransferase (ALT/SGPT) 17, Alkaline Phosphatase 121H, Total Protein 5.6L, Albumin 2.0L, Globulin 3.6, Albumin/Globulin Ratio 0.5L 03/19/17 09:25: Arterial Blood pH 7.508H, Arterial Blood Partial Pressure CO2 35.4, Arterial Blood Partial Pressure O2 78.8, Arterial Blood HCO3 27.5H, Arterial Blood Oxygen Saturation 94.8, Arterial Blood Base Excess 4.4, Shaun Test Positive 03/19/17 16:40: Arterial Blood pH 7.481H, Arterial Blood Partial Pressure CO2 39.1, Arterial Blood Partial Pressure O2 87.9, Arterial Blood HCO3 28.5H, Arterial Blood Oxygen Saturation 96.6, Arterial Blood Base Excess 4.7, Shaun Test Positive Height (Feet): 5 Height (Inches): 2.00 Weight (Pounds): 127 General Appearance: no apparent distress Cardiovascular: normal rate, regular rhythm Respiratory/Chest: chest wall non-tender, lungs clear Abdomen: normal bowel sounds, non tender REBEKAH ARRIETA Mar 19, 2017 23:38
[2017-03-20] VITALS (24 sets, daily range): BP systolic 109–153; BP diastolic 35–80
[2017-03-20] MEDS: NovoLOG Insulin Flexpen SUBQ SCH ×6 (03:46→20:19)
[2017-03-20 05:38] LABS: BASOPHILS % (AUTO) 1.8 % (0.0-2.0); LYMPHOCYTES % (AUTO) 14.8 % (20.0-45.0); MEAN CORPUSCULAR HEMOGLOBIN 34.9 PG (27.0-31.0); MEAN CORPUSCULAR HGB CONC 34.1 G/DL (32.0-36.0); MEAN CORPUSCULAR VOLUME 102 FL (80-99); MEAN PLATELET VOLUME 9.9 FL (6.5-10.1); MONOCYTES % (AUTO) 8.2 % (1.0-10.0); NEUTROPHILS % (AUTO) 72.2 % (45.0-75.0); PLATELET COUNT 297 K/UL (150-450); RED BLOOD COUNT 2.68 M/UL (4.20-5.40); RED CELL DISTRIBUTION WIDTH 15.1 % (11.6-14.8)
[2017-03-20 05:53] LABS: ALANINE AMINOTRANSFERASE 15 U/L (3-33); ALBUMIN/GLOBULIN RATIO 0.6 (1.0-2.7); ANION GAP 11 (5-15); ASPARTATE AMINO TRANSFERASE 29 U/L (5-40); CALCIUM 9.2 mg/dL (8.6-10.2); CARBON DIOXIDE 25 mEQ/L (20-30); CHLORIDE 102 mEQ/L (98-107); CREATININE 0.6 mg/dL (0.5-0.9); HEMOLYSIS 0; MAGNESIUM 1.8 mg/dL (1.7-2.5); PHOSPHORUS 2.8 mg/dL (2.5-4.8); POTASSIUM 3.6 mEQ/L (3.4-4.9); SODIUM 138 mEQ/L (135-145); TOTAL PROTEIN 5.7 g/dL (6.6-8.7)
[2017-03-20] MEDS: Levemir Flexpen SUBQ SCH (08:31)
[2017-03-20] MEDS: Heparin 5000 units/ml inj SUBQ SCH ×2 (08:32→21:00)
[2017-03-20] MEDS: Famotidine 20 MG/ 2ML VIAL IVP SCH (08:32)
--- NOTE | 2017-03-20 09:42 | General Progress Note ---
Assessment/Plan Status: stable - from renal stand Assessment/Plan Respiratory failure requiring intubation Severe sepsis secondary to pneumonia, resolving UTI Acute cystitis without hematuria Pneumonia, non cavitary, w/o effusion Dementia Acute renal failure , Dehydration Hypoxemic respiratory failure Type 2 diabetes mellitus with hyperglycemia Proteinuria Plan: Pulm support- Monitor renal parameters Urine studies- Avoid Nephrotoxics- Per Orders Subjective ROS Limited/Unobtainable: Yes Allergies: Coded Allergies: LORAZEPAM (Unverified Allergy, Unknown, 03/02/17) METOCLOPRAMIDE (Unverified Allergy, Unknown, 03/02/17) QUETIAPINE (Unverified Allergy, Unknown, 03/02/17) ZOLPIDEM (Unverified Allergy, Unknown, 03/02/17) Objective Last 24 Hour Vital Signs Date Time Temp Pulse Resp B/P (MAP) Pulse Ox O2 Delivery O2 Flow Rate FiO2 03/20/17 09:28 100 03/20/17 09:20 64 18 30 03/20/17 08:00 98.6 59 17 141/42 100 Mechanical Ventilator 03/20/17 08:00 54 03/20/17 07:37 30 03/20/17 07:09 51 18 30 03/20/17 07:00 51 17 118/55 100 Mechanical Ventilator 03/20/17 06:00 55 17 134/41 100 Mechanical Ventilator 03/20/17 05:00 59 17 113/38 100 Mechanical Ventilator 03/20/17 04:52 62 18 30 03/20/17 04:00 30 03/20/17 04:00 98.1 61 18 130/54 100 Mechanical Ventilator 03/20/17 04:00 57 03/20/17 03:30 74 19 30 03/20/17 03:00 60 18 140/63 100 Mechanical Ventilator 03/20/17 02:00 63 18 138/47 100 Mechanical Ventilator 03/20/17 01:05 59 18 30 03/20/17 01:00 62 18 126/38 100 Mechanical Ventilator 03/20/17 00:00 30 03/20/17 00:00 62 03/20/17 00:00 98.8 65 18 137/47 100 Mechanical Ventilator 03/19/17 23:30 59 18 30 03/19/17 23:00 68 18 123/38 100 Mechanical Ventilator 03/19/17 22:00 59 18 129/41 100 Mechanical Ventilator 30 03/19/17 21:30 72 18 30 03/19/17 21:00 64 18 120/40 100 Mechanical Ventilator 30 03/19/17 20:00 74 03/19/17 20:00 30 03/19/17 20:00 64 03/19/17 20:00 99.0 64 18 160/47 100 Mechanical Ventilator 30 03/19/17 19:30 70 18 30 03/19/17 19:00 66 18 145/62 100 Mechanical Ventilator 30 03/19/17 18:00 67 18 136/59 100 Mechanical Ventilator 30 03/19/17 17:00 68 18 140/51 100 Mechanical Ventilator 30 03/19/17 16:45 77 24 30 03/19/17 16:00 75 03/19/17 16:00 98.2 75 25 157/53 100 Mechanical Ventilator 30 03/19/17 15:30 72 26 30 03/19/17 15:05 76 27 30 03/19/17 15:00 76 19 153/59 100 Mechanical Ventilator 30 03/19/17 14:00 76 20 121/90 100 Mechanical Ventilator 30 03/19/17 13:30 30 03/19/17 13:19 70 24 30 03/19/17 13:00 70 20 147/62 100 Mechanical Ventilator 30 03/19/17 12:00 62 03/19/17 12:00 98.6 62 18 151/59 100 Mechanical Ventilator 30 03/19/17 11:00 68 18 138/47 100 Mechanical Ventilator 30 03/19/17 10:55 30 03/19/17 10:50 100 03/19/17 10:50 57 10 30 03/19/17 10:00 61 18 140/69 100 Mechanical Ventilator 30 Intake and Output 03/20/17 03/21/17 19:00 07:00 Intake Total 45 ml Output Total 20 ml Balance 25 ml Tube Feeding 45 ml Output Urine Total 20 ml Laboratory Tests 03/19/17 16:40: Arterial Blood pH 7.481H, Arterial Blood Partial Pressure CO2 39.1, Arterial Blood Partial Pressure O2 87.9, Arterial Blood HCO3 28.5H, Arterial Blood Oxygen Saturation 96.6, Arterial Blood Base Excess 4.7, Shaun Test Positive 03/20/17 04:15: White Blood Count 7.0, Red Blood Count 2.68L, Hemoglobin 9.4L, Hematocrit 27.5L , Mean Corpuscular Volume 102H, Mean Corpuscular Hemoglobin 34.9H, Mean Corpuscular Hemoglobin Concent 34.1, Red Cell Distribution Width 15.1H, Platelet Count 297, Mean Platelet Volume 9.9, Neutrophils (%) (Auto) 72.2, Lymphocytes (%) (Auto) 14.8L, Monocytes (%) (Auto) 8.2, Eosinophils (%) (Auto) 3.0, Basophils (%) (Auto) 1.8, Sodium Level 138, Potassium Level 3.6, Chloride Level 102, Carbon Dioxide Level 25, Anion Gap 11, Blood Urea Nitrogen 24H, Creatinine 0.6, Estimat Glomerular Filtration Rate , Glucose Level 225#H, Calcium Level 9.2, Phosphorus Level 2.8, Magnesium Level 1.8, Total Bilirubin 0.3, Aspartate Amino Transf (AST/SGOT) 29, Alanine Aminotransferase (ALT/SGPT) 15, Alkaline Phosphatase 116H, Total Protein 5.7L, Albumin 2.2L, Globulin 3.5, Albumin/Globulin Ratio 0.6L Height (Feet): 5 Height (Inches): 2.00 Weight (Pounds): 118 General Appearance: lethargic EENT: other - intubated Objective PE not changed IRWIN DAMON Mar 20, 2017 09:42
--- NOTE | 2017-03-20 10:10 | Pulmonolgy Critical Care Note ---
Critical Care - Asmt/Plan Problems: (1) Respiratory failure requiring intubation (2) Pneumonia (3) Anemia (4) Advanced dementia (5) Feeding by G-tube (6) Severe sepsis Respiratory: monitor respiratory rate, adjust FIO2, CXR, other - didn't tolerate weaning yesterday, might need tracheostomy Cardiac: continue to monitor HR/BP Renal: F/U I&O Infectious Disease: check cultures Gastrointestinal: continue feedings/current rate Endocrine: monitor blood sugar, check HgA1C Neurologic: PRN Ativan Prophylaxis: Protonix Notes Reviewed: renal, ID Discussed with: nurses, consultants Critical Care - Objective Last 24 Hour Vital Signs Date Time Temp Pulse Resp B/P (MAP) Pulse Ox O2 Delivery O2 Flow Rate FiO2 03/20/17 09:28 100 03/20/17 09:20 64 18 30 03/20/17 09:00 65 17 125/37 100 Mechanical Ventilator 30 03/20/17 08:00 98.6 59 17 141/42 100 Mechanical Ventilator 30 03/20/17 08:00 54 03/20/17 07:37 30 03/20/17 07:09 51 18 30 03/20/17 07:00 51 17 118/55 100 Mechanical Ventilator 30 03/20/17 06:00 55 17 134/41 100 Mechanical Ventilator 30 03/20/17 05:00 59 17 113/38 100 Mechanical Ventilator 30 03/20/17 04:52 62 18 30 03/20/17 04:00 30 03/20/17 04:00 98.1 61 18 130/54 100 Mechanical Ventilator 30 03/20/17 04:00 57 03/20/17 03:30 74 19 30 03/20/17 03:00 60 18 140/63 100 Mechanical Ventilator 30 03/20/17 02:00 63 18 138/47 100 Mechanical Ventilator 30 03/20/17 01:05 59 18 30 03/20/17 01:00 62 18 126/38 100 Mechanical Ventilator 30 03/20/17 00:00 30 03/20/17 00:00 62 03/20/17 00:00 98.8 65 18 137/47 100 Mechanical Ventilator 30 03/19/17 23:30 59 18 30 03/19/17 23:00 68 18 123/38 100 Mechanical Ventilator 03/19/17 22:00 59 18 129/41 100 Mechanical Ventilator 30 03/19/17 21:30 72 18 30 03/19/17 21:00 64 18 120/40 100 Mechanical Ventilator 03/19/17 20:00 74 03/19/17 20:00 30 03/19/17 20:00 64 03/19/17 20:00 99.0 64 18 160/47 100 Mechanical Ventilator 03/19/17 19:30 70 18 30 03/19/17 19:00 66 18 145/62 100 Mechanical Ventilator 03/19/17 18:00 67 18 136/59 100 Mechanical Ventilator 30 03/19/17 17:00 68 18 140/51 100 Mechanical Ventilator 03/19/17 16:45 77 24 30 03/19/17 16:00 75 03/19/17 16:00 98.2 75 25 157/53 100 Mechanical Ventilator 03/19/17 15:30 72 26 30 03/19/17 15:05 76 27 30 03/19/17 15:00 76 19 153/59 100 Mechanical Ventilator 03/19/17 14:00 76 20 121/90 100 Mechanical Ventilator 30 03/19/17 13:30 30 03/19/17 13:19 70 24 30 03/19/17 13:00 70 20 147/62 100 Mechanical Ventilator 03/19/17 12:00 62 03/19/17 12:00 98.6 62 18 151/59 100 Mechanical Ventilator 03/19/17 11:00 68 18 138/47 100 Mechanical Ventilator 03/19/17 10:55 30 03/19/17 10:50 100 03/19/17 10:50 57 10 30 Status: awake Condition: critical HEENT: atraumatic Neck: full ROM Lungs: clear Heart: HR/BP stable, HR/BP unstable Abdomen: soft, active bowel sounds Extremities: no C/C/E, edema Decubiti: location, stage Accucheck: 204 Critical Care - Subjective ROS Limited/Unobtainable: No ICU Day: 8 Intubation Day: 8 Condition: critical EKG Rhythm: Sinus Rhythm FI02: 30 Vent Support Breath Rate: 10 Vent Support Mode: AC Vent Tidal Volume: 500 Sputum Amount: Scant PEEP: 5.0 PIP: 29 Tube Feeding Amount: 45 I&O: Intake and Output 03/20/17 03/21/17 19:00 07:00 Intake Total 90 ml Output Total 50 ml Balance 40 ml Tube Feeding 90 ml Output Urine Total 50 ml CXR: RLL infiltrate ET-Tube: 7.0 ET Position: 21 Labs: Laboratory Tests Test 03/19/17 16:40 03/20/17 04:15 Arterial Blood pH 7.481 (7.350-7.450) Arterial Blood Partial Pressure CO2 39.1 mmHg (35.0-45.0) Arterial Blood Partial Pressure O2 87.9 mmHg (75.0-100.0) Arterial Blood HCO3 28.5 mmol/L (22.0-26.0) H Arterial Blood Oxygen Saturation 96.6 % (92.0-98.0) Arterial Blood Base Excess 4.7 Shaun Test Positive White Blood Count 7.0 K/UL (4.8-10.8) Red Blood Count 2.68 M/UL (4.20-5.40) L Hemoglobin 9.4 G/DL (12.0-16.0) L Hematocrit 27.5 % (37.0-47.0) L Mean Corpuscular Volume 102 FL (80-99) H Mean Corpuscular Hemoglobin 34.9 PG (27.0-31.0) H Mean Corpuscular Hemoglobin Concent 34.1 G/DL (32.0-36.0) Red Cell Distribution Width 15.1 % (11.6-14.8) H Platelet Count 297 K/UL (150-450) Mean Platelet Volume 9.9 FL (6.5-10.1) Neutrophils (%) (Auto) 72.2 % (45.0-75.0) Lymphocytes (%) (Auto) 14.8 % (20.0-45.0) L Monocytes (%) (Auto) 8.2 % (1.0-10.0) Eosinophils (%) (Auto) 3.0 % (0.0-3.0) Basophils (%) (Auto) 1.8 % (0.0-2.0) Sodium Level 138 mEQ/L (135-145) Potassium Level 3.6 mEQ/L (3.4-4.9) Chloride Level 102 mEQ/L (98-107) Carbon Dioxide Level 25 mEQ/L (20-30) Anion Gap 11 (5-15) Blood Urea Nitrogen 24 mg/dL (7-23) H Creatinine 0.6 mg/dL (0.5-0.9) Estimat Glomerular Filtration Rate mL/min (>60) Glucose Level 225 mg/dL (74-106) #H Calcium Level 9.2 mg/dL (8.6-10.2) Phosphorus Level 2.8 mg/dL (2.5-4.8) Magnesium Level 1.8 mg/dL (1.7-2.5) Total Bilirubin 0.3 mg/dL (0.0-1.2) Aspartate Amino Transf (AST/SGOT) 29 U/L (5-40) Alanine Aminotransferase (ALT/SGPT) 15 U/L (3-33) Alkaline Phosphatase 116 U/L (35-104) H Total Protein 5.7 g/dL (6.6-8.7) L Albumin 2.2 g/dL (3.5-5.2) L Globulin 3.5 g/dL Albumin/Globulin Ratio 0.6 (1.0-2.7) L ZAIRA ROSALES Mar 20, 2017 10:10
--- NOTE | 2017-03-20 11:17 | Diagnostic Imaging Report ---
Indication: Dyspnea Comparison: None A single view chest radiograph was obtained. Findings: Patchy infiltrates again demonstrated bilaterally. Heart size is stable. Endotracheal tube is just above the pema. 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
[2017-03-20 12:04] LABS: ABG ALLEN TEST POSITIVE; ABG BASE EXCESS 4.4
[2017-03-20] MEDS: Vancomycin 750mg/NS 250ml 250 ML IVPB SCH (16:30)
--- NOTE | 2017-03-20 17:37 | Wound Nurse Progress Note ---
Wound RN Progress Note Wound Consult DTI on sacral area still intact. will cont the same wound care treatment and recommendations. STELLA HSIEH RN Mar 20, 2017 17:36
--- NOTE | 2017-03-20 17:50 | Wound Nurse Progress Note ---
Wound RN Progress Note Wound Consult #1 Sacral DTI. Still intact #2 Mid upper back stage II open blister. No further deterioration noted #3 Right upper thigh open blister No further deterioration noted #4 Chemical burn on perineal area. Noted with erosion and rashes. Recommended Lotrimin cream per protocol. will f/u with Pt. STELLA HSIEH RN Mar 20, 2017 17:50
--- NOTE | 2017-03-20 18:07 | Infectious Diseases Prog Note ---
Assessment/Plan Assessment/Plan IMPRESSION: 1. Severe sepsis with multiorgan failure, improving, secondary to pneumonia s/p recent admission for hypoxemic resp failure and pneumonia, treated with D#7 IV vanc/cefepime completed on [id number] 03/12 ucx neg 03/12 blood cx ngtd at 72 hrs. 2. Bibasilar staph aureus pneumonia 3. Acute respiratory failure. 4. Acute renal failure., SP 5. Diabetes type 2 with hyperglycemia. 6. Dementia. 7. Methicillin resistant Staphylococcus aureus colonization. 8. lactic acidosis, resolved RECOMMENDATION: --continue IV vancomycin D# 8 of 14 (03/15 s/p IV meropenem D#4) --monitor blood cx --monitor CBC --monitor temp curve -- Wean off Vent as per Pul -- off of pressors Subjective Allergies: Coded Allergies: LORAZEPAM (Unverified Allergy, Unknown, 03/02/17) METOCLOPRAMIDE (Unverified Allergy, Unknown, 03/02/17) QUETIAPINE (Unverified Allergy, Unknown, 03/02/17) ZOLPIDEM (Unverified Allergy, Unknown, 03/02/17) Subjective could not be weaned off today off of pressors Objective Vital Signs Last 24 Hour Vital Signs Date Time Temp Pulse Resp B/P (MAP) Pulse Ox O2 Delivery O2 Flow Rate FiO2 03/20/17 17:00 62 19 140/40 100 Mechanical Ventilator 30 03/20/17 16:58 64 18 30 03/20/17 16:00 60 19 122/40 100 Mechanical Ventilator 30 03/20/17 16:00 30 03/20/17 16:00 60 03/20/17 15:34 54 18 30 03/20/17 15:00 57 20 111/60 100 Mechanical Ventilator 30 03/20/17 14:00 62 20 135/80 100 Mechanical Ventilator 03/20/17 13:36 78 18 30 03/20/17 13:00 55 19 135/60 100 Mechanical Ventilator 30 03/20/17 12:00 98.1 73 20 145/78 100 Mechanical Ventilator 30 03/20/17 12:00 30 03/20/17 12:00 61 03/20/17 11:11 59 18 30 03/20/17 11:00 58 20 121/59 100 Mechanical Ventilator 30 03/20/17 10:00 51 20 109/63 100 Mechanical Ventilator 30 03/20/17 09:28 100 03/20/17 09:20 64 18 30 03/20/17 09:00 65 17 125/37 100 Mechanical Ventilator 30 03/20/17 08:00 98.6 59 17 141/42 100 Mechanical Ventilator 30 03/20/17 08:00 54 03/20/17 07:37 30 03/20/17 07:09 51 18 30 03/20/17 07:00 51 17 118/55 100 Mechanical Ventilator 30 03/20/17 06:00 55 17 134/41 100 Mechanical Ventilator 30 03/20/17 05:00 59 17 113/38 100 Mechanical Ventilator 03/20/17 04:52 62 18 30 03/20/17 04:00 30 03/20/17 04:00 98.1 61 18 130/54 100 Mechanical Ventilator 30 03/20/17 04:00 57 03/20/17 03:30 74 19 30 03/20/17 03:00 60 18 140/63 100 Mechanical Ventilator 30 03/20/17 02:00 63 18 138/47 100 Mechanical Ventilator 30 03/20/17 01:05 59 18 30 03/20/17 01:00 62 18 126/38 100 Mechanical Ventilator 30 03/20/17 00:00 30 03/20/17 00:00 62 03/20/17 00:00 98.8 65 18 137/47 100 Mechanical Ventilator 30 03/19/17 23:30 59 18 30 03/19/17 23:00 68 18 123/38 100 Mechanical Ventilator 30 03/19/17 22:00 59 18 129/41 100 Mechanical Ventilator 30 03/19/17 21:30 72 18 30 03/19/17 21:00 64 18 120/40 100 Mechanical Ventilator 30 03/19/17 20:00 74 03/19/17 20:00 30 03/19/17 20:00 64 03/19/17 20:00 99.0 64 18 160/47 100 Mechanical Ventilator 30 03/19/17 19:30 70 18 30 03/19/17 19:00 66 18 145/62 100 Mechanical Ventilator 30 Height (Feet): 5 Height (Inches): 2.00 Weight (Pounds): 118 HEENT: mucous membranes moist Respiratory/Chest: normal breath sounds Cardiovascular: regularly irregular Abdomen: no organomegaly Laboratory Tests Test 03/20/17 04:15 03/20/17 11:45 White Blood Count 7.0 K/UL (4.8-10.8) Red Blood Count 2.68 M/UL (4.20-5.40) L Hemoglobin 9.4 G/DL (12.0-16.0) L Hematocrit 27.5 % (37.0-47.0) L Mean Corpuscular Volume 102 FL (80-99) H Mean Corpuscular Hemoglobin 34.9 PG (27.0-31.0) H Mean Corpuscular Hemoglobin Concent 34.1 G/DL (32.0-36.0) Red Cell Distribution Width 15.1 % (11.6-14.8) H Platelet Count 297 K/UL (150-450) Mean Platelet Volume 9.9 FL (6.5-10.1) Neutrophils (%) (Auto) 72.2 % (45.0-75.0) Lymphocytes (%) (Auto) 14.8 % (20.0-45.0) L Monocytes (%) (Auto) 8.2 % (1.0-10.0) Eosinophils (%) (Auto) 3.0 % (0.0-3.0) Basophils (%) (Auto) 1.8 % (0.0-2.0) Sodium Level 138 mEQ/L (135-145) Potassium Level 3.6 mEQ/L (3.4-4.9) Chloride Level 102 mEQ/L (98-107) Carbon Dioxide Level 25 mEQ/L (20-30) Anion Gap 11 (5-15) Blood Urea Nitrogen 24 mg/dL (7-23) H Creatinine 0.6 mg/dL (0.5-0.9) Estimat Glomerular Filtration Rate mL/min (>60) Glucose Level 225 mg/dL (74-106) #H Calcium Level 9.2 mg/dL (8.6-10.2) Phosphorus Level 2.8 mg/dL (2.5-4.8) Magnesium Level 1.8 mg/dL (1.7-2.5) Total Bilirubin 0.3 mg/dL (0.0-1.2) Aspartate Amino Transf (AST/SGOT) 29 U/L (5-40) Alanine Aminotransferase (ALT/SGPT) 15 U/L (3-33) Alkaline Phosphatase 116 U/L (35-104) H Total Protein 5.7 g/dL (6.6-8.7) L Albumin 2.2 g/dL (3.5-5.2) L Globulin 3.5 g/dL Albumin/Globulin Ratio 0.6 (1.0-2.7) L Arterial Blood pH 7.500 (7.350-7.450) Arterial Blood Partial Pressure CO2 36.0 mmHg (35.0-45.0) Arterial Blood Partial Pressure O2 71.4 mmHg (75.0-100.0) L Arterial Blood HCO3 27.7 mmol/L (22.0-26.0) H Arterial Blood Oxygen Saturation 94.0 % (92.0-98.0) Arterial Blood Base Excess 4.4 Shaun Test Positive Current Medications Medications (Trade) Dose Ordered Sig/Ramiro Route PRN Reason Start Time Stop Time Status Last Admin Dose Admin Acetaminophen (Tylenol) 650 mg Q4H PRN ORAL fever>100.5 03/12/17 07:30 04/11/17 07:29 Albuterol/ Ipratropium (DuoNeb 0.5-3(2.5)mg/3ml) 3 ml Q4H PRN HHN Shortness of Breath 03/16/17 16:00 03/21/17 15:59 Artificial Tears (Akwa-Tears) 2 drop Q2H PRN BOTH EYES Dry Eyes 03/15/17 16:30 04/14/17 16:29 03/16/17 00:54 Clotrimazole (Lotrimin) 1 applic EVERY 12 HOURS TOPIC 03/20/17 21:00 04/19/17 20:59 Dextrose (Dextrose 50%) STAT PRN IV Hypoglycemia 03/12/17 10:00 04/11/17 09:59 Famotidine (Pepcid I.v.) 20 mg DAILY IVP 03/13/17 10:00 04/12/17 09:59 03/20/17 08:32 Heparin Sodium (Porcine) (Heparin 5000 units/ml) 5,000 units EVERY 12 HOURS SUBQ 03/12/17 09:00 04/11/17 08:59 03/20/17 08:32 Insulin Aspart (NovoLOG) Q4H SUBQ 03/12/17 12:00 9/21/17 11:59 03/20/17 16:29 Insulin Detemir (Levemir) 5 units DAILY SUBQ 03/15/17 14:00 04/14/17 13:59 03/20/17 08:31 Norepinephrine Bitartrate 4 mg/ Dextrose 254 ml @ 0 mls/hr Q24H IV 03/12/17 07:30 04/11/17 07:29 Ondansetron HCl (Zofran) 4 mg Q6H PRN IVP Nausea & Vomiting 03/12/17 07:30 04/11/17 07:29 Polyethylene Glycol (Miralax) 17 gm DAILYPRN PRN ORAL Constipation 03/12/17 07:30 04/11/17 07:29 Vancomycin HCl (Vanco rx to dose) 1 ea DAILY PRN MISC PER RX PROTOCOL 03/13/17 11:30 04/12/17 11:29 Vancomycin/Sodium Chloride 250 ml @ 166.667 mls/hr Q24H IVPB 03/16/17 17:00 03/21/17 17:15 03/20/17 16:30 HUSEYIN BERNARD M.D. Mar 20, 2017 18:07
--- NOTE | 2017-03-20 22:28 | General Progress Note ---
Assessment/Plan Status: unchanged Assessment/Plan 1. Leukocytosis, secondary to underlying sepsis. Continue monitoring. --> Has been resolved --> WBC 7.0 2. Anemia secondary to chronic disease. Ferritin is elevated, TIBC is low. --> transfuse if hgb is less than 8 or symptomatic --> monitor counts --> has been stable >8 --> occult blood negative and hiv panel negative 4. Coagulopathy, potentially secondary to underlying sepsis as well. --> PTT and prothrombin time now WNL --> continue to monitor 5. Methicillin-resistant Staphylococcus aureus colonization. 6. Respiratory failure, status post intubation. 7. Acute kidney injury. --> nephrology following Subjective Date patient seen: Mar 20, 2017 Time patient seen: 06:00 Constitutional: Denies: no symptoms, chills, diaphoresis, fever, malaise, weakness, other HEENT: Denies: no symptoms, eye pain, blurred vision, tearing, double vision, ear pain, ear discharge, nose pain, nose congestion, throat pain, throat swelling, mouth pain, mouth swelling, other Cardiovascular: Denies: no symptoms, chest pain, edema, irregular heart rate, lightheadedness, palpitations, syncope, other Respiratory: Denies: no symptoms, cough, orthopnea, shortness of breath, SOB with excertion, SOB at rest, sputum, stridor, wheezing, other Gastrointestinal/Abdominal: Denies: no symptoms, abdomen distended, abdominal pain, black stools, tarry stools, blood in stool, constipated, diarrhea, difficulty swallowing, nausea, poor appetite, poor fluid intake, rectal bleeding , vomiting, other Genitourinary: Denies: no symptoms, burning, discharge, frequency, flank pain, hematuria, incontinence, pain, urgency, other Neurologic/Psychiatric: Denies: no symptoms, anxiety, depressed, emotional problems, headache, numbness, paresthesia, pre-existing deficit, seizure, tingling, tremors, weakness, other Hematologic/Lymphatic: Reports: other Allergies: Coded Allergies: LORAZEPAM (Unverified Allergy, Unknown, 03/02/17) METOCLOPRAMIDE (Unverified Allergy, Unknown, 03/02/17) QUETIAPINE (Unverified Allergy, Unknown, 03/02/17) ZOLPIDEM (Unverified Allergy, Unknown, 03/02/17) Subjective Patient intubated. Hemoglobin has been stable. Afebrile. No acute distress. Comfortable. Leukocytosis has been WNL. Objective Last 24 Hour Vital Signs Date Time Temp Pulse Resp B/P (MAP) Pulse Ox O2 Delivery O2 Flow Rate FiO2 03/20/17 21:25 68 19 30 03/20/17 20:00 59 03/20/17 20:00 30 03/20/17 19:18 58 18 30 03/20/17 19:00 98.2 60 18 150/48 100 Mechanical Ventilator 30 03/20/17 18:00 60 19 153/73 100 Mechanical Ventilator 30 03/20/17 17:00 62 19 140/40 100 Mechanical Ventilator 03/20/17 16:58 64 18 30 03/20/17 16:00 60 19 122/40 100 Mechanical Ventilator 30 03/20/17 16:00 30 03/20/17 16:00 60 03/20/17 15:34 54 18 30 03/20/17 15:00 57 20 111/60 100 Mechanical Ventilator 03/20/17 14:00 62 20 135/80 100 Mechanical Ventilator 30 03/20/17 13:36 78 18 30 03/20/17 13:00 55 19 135/60 100 Mechanical Ventilator 03/20/17 12:00 98.1 73 20 145/78 100 Mechanical Ventilator 03/20/17 12:00 30 03/20/17 12:00 61 03/20/17 11:11 59 18 30 03/20/17 11:00 58 20 121/59 100 Mechanical Ventilator 03/20/17 10:00 51 20 109/63 100 Mechanical Ventilator 03/20/17 09:28 100 03/20/17 09:20 64 18 30 03/20/17 09:00 65 17 125/37 100 Mechanical Ventilator 03/20/17 08:00 98.6 59 17 141/42 100 Mechanical Ventilator 03/20/17 08:00 54 03/20/17 07:37 30 03/20/17 07:09 51 18 30 03/20/17 07:00 51 17 118/55 100 Mechanical Ventilator 03/20/17 06:00 55 17 134/41 100 Mechanical Ventilator 03/20/17 05:00 59 17 113/38 100 Mechanical Ventilator 30 03/20/17 04:52 62 18 30 03/20/17 04:00 30 03/20/17 04:00 98.1 61 18 130/54 100 Mechanical Ventilator 30 03/20/17 04:00 57 03/20/17 03:30 74 19 30 03/20/17 03:00 60 18 140/63 100 Mechanical Ventilator 30 03/20/17 02:00 63 18 138/47 100 Mechanical Ventilator 30 03/20/17 01:05 59 18 30 03/20/17 01:00 62 18 126/38 100 Mechanical Ventilator 30 03/20/17 00:00 30 03/20/17 00:00 62 03/20/17 00:00 98.8 65 18 137/47 100 Mechanical Ventilator 30 03/19/17 23:30 59 18 30 03/19/17 23:00 68 18 123/38 100 Mechanical Ventilator 30 Intake and Output 03/20/17 03/21/17 19:00 07:00 Intake Total 790 ml 165 ml Output Total 580 ml 150 ml Balance 210 ml 15 ml Free Water 30 ml IV Total 250 ml Tube Feeding 540 ml 135 ml Output Urine Total 580 ml 150 ml Laboratory Tests 03/20/17 04:15: White Blood Count 7.0, Red Blood Count 2.68L, Hemoglobin 9.4L, Hematocrit 27.5L , Mean Corpuscular Volume 102H, Mean Corpuscular Hemoglobin 34.9H, Mean Corpuscular Hemoglobin Concent 34.1, Red Cell Distribution Width 15.1H, Platelet Count 297, Mean Platelet Volume 9.9, Neutrophils (%) (Auto) 72.2, Lymphocytes (%) (Auto) 14.8L, Monocytes (%) (Auto) 8.2, Eosinophils (%) (Auto) 3.0, Basophils (%) (Auto) 1.8, Sodium Level 138, Potassium Level 3.6, Chloride Level 102, Carbon Dioxide Level 25, Anion Gap 11, Blood Urea Nitrogen 24H, Creatinine 0.6, Estimat Glomerular Filtration Rate , Glucose Level 225#H, Calcium Level 9.2, Phosphorus Level 2.8, Magnesium Level 1.8, Total Bilirubin 0.3, Aspartate Amino Transf (AST/SGOT) 29, Alanine Aminotransferase (ALT/SGPT) 15, Alkaline Phosphatase 116H, Total Protein 5.7L, Albumin 2.2L, Globulin 3.5, Albumin/Globulin Ratio 0.6L 03/20/17 11:45: Arterial Blood pH 7.500H, Arterial Blood Partial Pressure CO2 36.0, Arterial Blood Partial Pressure O2 71.4L, Arterial Blood HCO3 27.7H, Arterial Blood Oxygen Saturation 94.0, Arterial Blood Base Excess 4.4, Shaun Test Positive Height (Feet): 5 Height (Inches): 2.00 Weight (Pounds): 118 General Appearance: lethargic Cardiovascular: normal rate, regular rhythm Respiratory/Chest: lungs clear Abdomen: normal bowel sounds, non tender REBEKAH ARRIETA Mar 20, 2017 22:28
[2017-03-21] VITALS (24 sets, daily range): BP systolic 120–175; BP diastolic 36–94
[2017-03-21] MEDS: NovoLOG Insulin Flexpen SUBQ SCH ×6 (00:42→19:46)
[2017-03-21 05:05] LABS: BASOPHILS % (AUTO) 1.3 % (0.0-2.0); EOSINOPHILS % (AUTO) 3.3 % (0.0-3.0); LYMPHOCYTES % (AUTO) 14.8 % (20.0-45.0); MEAN CORPUSCULAR HEMOGLOBIN 35.2 PG (27.0-31.0); MEAN CORPUSCULAR HGB CONC 34.4 G/DL (32.0-36.0); MEAN CORPUSCULAR VOLUME 102 FL (80-99); MEAN PLATELET VOLUME 9.1 FL (6.5-10.1); MONOCYTES % (AUTO) 10.9 % (1.0-10.0); NEUTROPHILS % (AUTO) 69.8 % (45.0-75.0); PLATELET COUNT 271 K/UL (150-450); RED BLOOD COUNT 2.58 M/UL (4.20-5.40); RED CELL DISTRIBUTION WIDTH 15.5 % (11.6-14.8); WHITE BLOOD COUNT 6.7 K/UL (4.8-10.8)
[2017-03-21 05:32] LABS: ALANINE AMINOTRANSFERASE 13 U/L (3-33); ALBUMIN/GLOBULIN RATIO 0.6 (1.0-2.7); ANION GAP 10 (5-15); ASPARTATE AMINO TRANSFERASE 28 U/L (5-40); CARBON DIOXIDE 25 mEQ/L (20-30); CHLORIDE 105 mEQ/L (98-107); CREATININE 0.6 mg/dL (0.5-0.9); HEMOLYSIS 28; MAGNESIUM 1.9 mg/dL (1.7-2.5); PHOSPHORUS 3.1 mg/dL (2.5-4.8); SODIUM 140 mEQ/L (135-145); TOTAL PROTEIN 5.4 g/dL (6.6-8.7)
[2017-03-21] MEDS: Levemir Flexpen SUBQ SCH (08:28)
[2017-03-21] MEDS: Heparin 5000 units/ml inj SUBQ SCH ×2 (08:29→21:04)
[2017-03-21] MEDS: Famotidine 20 MG/ 2ML VIAL IVP SCH (08:30)
[2017-03-21 09:13] LABS: ABG ALLEN TEST POSITIVE; ABG BASE EXCESS 2.6; ABG PCO2 39.9 mmHg (35.0-45.0)
--- NOTE | 2017-03-21 09:55 | Pulmonology Progress Note ---
Assessment/Plan Problems: (1) Respiratory failure requiring intubation (2) Severe sepsis (3) Pneumonia (4) Feeding by G-tube (5) Advanced dementia Respiratory: monitor respiratory rate, adjust FIO2, CXR, other - pt not weaning , the options are tracheostomy or weaning. Cardiac: continue to monitor HR/BP Renal: F/U I&O, keep IV fluid Infectious Disease: check cultures Gastrointestinal: continue feedings/current rate, hold feedings Endocrine: monitor blood sugar, check HgA1C Neurologic: PRN Ativan, PRN Morphine Affect: PRN ativan Prophylaxis: Heparin Notes Reviewed: cardio, renal Discussed with: nurses, consultants, block and case maker Subjective ROS Limited/Unobtainable: No HEENT: Repors: no symptoms Respiratory: Reports: no symptoms Cardiovascular: Reports: no symptoms Allergies: Coded Allergies: LORAZEPAM (Unverified Allergy, Unknown, 03/02/17) METOCLOPRAMIDE (Unverified Allergy, Unknown, 03/02/17) QUETIAPINE (Unverified Allergy, Unknown, 03/02/17) ZOLPIDEM (Unverified Allergy, Unknown, 03/02/17) Objective Last 24 Hour Vital Signs Date Time Temp Pulse Resp B/P (MAP) Pulse Ox O2 Delivery O2 Flow Rate FiO2 03/21/17 09:05 58 18 30 03/21/17 09:00 59 19 141/43 99 Mechanical Ventilator 03/21/17 08:00 30 03/21/17 08:00 98.2 61 24 141/63 99 Mechanical Ventilator 03/21/17 08:00 59 03/21/17 07:30 126/69 03/21/17 07:23 61 18 30 03/21/17 07:00 62 19 122/69 99 Mechanical Ventilator 03/21/17 06:00 63 19 120/51 99 Mechanical Ventilator 30 03/21/17 05:22 60 18 30 03/21/17 05:00 65 19 120/51 99 Mechanical Ventilator 30 03/21/17 04:00 30 03/21/17 04:00 59 03/21/17 04:00 97.9 59 24 133/94 99 Mechanical Ventilator 03/21/17 03:21 62 18 30 03/21/17 03:00 52 20 133/36 100 Mechanical Ventilator 03/21/17 02:00 65 24 145/50 100 Mechanical Ventilator 30 03/21/17 01:17 53 18 30 03/21/17 01:00 54 24 120/37 100 Mechanical Ventilator 30 03/21/17 00:00 30 03/21/17 00:00 53 03/21/17 00:00 97.9 51 24 140/40 100 Mechanical Ventilator 30 03/20/17 23:00 55 24 115/35 100 Mechanical Ventilator 30 03/20/17 22:37 52 18 30 03/20/17 22:00 55 24 115/35 100 Mechanical Ventilator 30 03/20/17 21:25 68 19 30 03/20/17 21:00 68 19 135/47 100 Mechanical Ventilator 30 03/20/17 20:00 98.0 66 22 144/50 100 Mechanical Ventilator 30 03/20/17 20:00 59 03/20/17 20:00 30 03/20/17 19:18 58 18 30 03/20/17 19:00 98.2 60 18 150/48 100 Mechanical Ventilator 30 03/20/17 18:00 60 19 153/73 100 Mechanical Ventilator 30 03/20/17 17:00 62 19 140/40 100 Mechanical Ventilator 30 03/20/17 16:58 64 18 30 03/20/17 16:00 60 19 122/40 100 Mechanical Ventilator 30 03/20/17 16:00 30 03/20/17 16:00 60 03/20/17 15:34 54 18 30 03/20/17 15:00 57 20 111/60 100 Mechanical Ventilator 30 03/20/17 14:00 62 20 135/80 100 Mechanical Ventilator 30 03/20/17 13:36 78 18 30 03/20/17 13:00 55 19 135/60 100 Mechanical Ventilator 30 03/20/17 12:00 98.1 73 20 145/78 100 Mechanical Ventilator 30 03/20/17 12:00 30 03/20/17 12:00 61 03/20/17 11:11 59 18 30 03/20/17 11:00 58 20 121/59 100 Mechanical Ventilator 30 03/20/17 10:00 51 20 109/63 100 Mechanical Ventilator 30 Intake and Output 03/21/17 03/22/17 19:00 07:00 Intake Total 90 ml Output Total 90 ml Balance 0 ml Tube Feeding 90 ml Output Urine Total 90 ml General Appearance: WD/WN, no acute distress HEENT: normocephalic, atraumatic Respiratory/Chest: chest wall non-tender, lungs clear Breasts: no masses Cardiovascular: normal peripheral pulses Abdomen: normal bowel sounds, soft, non tender Genitourinary: normal external genitalia Extremities: no cyanosis Skin: no rash 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 Lymphatic: no neck adenopathy Laboratory Tests 03/20/17 11:45: Arterial Blood pH 7.500H, Arterial Blood Partial Pressure CO2 36.0, Arterial Blood Partial Pressure O2 71.4L, Arterial Blood HCO3 27.7H, Arterial Blood Oxygen Saturation 94.0, Arterial Blood Base Excess 4.4, Shaun Test Positive 03/21/17 03:45: White Blood Count 6.7, Red Blood Count 2.58L, Hemoglobin 9.1L, Hematocrit 26.4L , Mean Corpuscular Volume 102H, Mean Corpuscular Hemoglobin 35.2H, Mean Corpuscular Hemoglobin Concent 34.4, Red Cell Distribution Width 15.5H, Platelet Count 271, Mean Platelet Volume 9.1, Neutrophils (%) (Auto) 69.8, Lymphocytes (%) (Auto) 14.8L, Monocytes (%) (Auto) 10.9H, Eosinophils (%) (Auto ) 3.3H, Basophils (%) (Auto) 1.3, Sodium Level 140, Potassium Level 4.0, Chloride Level 105, Carbon Dioxide Level 25, Anion Gap 10, Blood Urea Nitrogen 27H, Creatinine 0.6, Estimat Glomerular Filtration Rate , Glucose Level 176H, Calcium Level 9.0, Phosphorus Level 3.1, Magnesium Level 1.9, Total Bilirubin 0.3, Aspartate Amino Transf (AST/SGOT) 28, Alanine Aminotransferase (ALT/SGPT) 13, Alkaline Phosphatase 106H, Total Protein 5.4L, Albumin 2.1L, Globulin 3.3, Albumin/Globulin Ratio 0.6L 03/21/17 09:06: Arterial Blood pH 7.440, Arterial Blood Partial Pressure CO2 39.9, Arterial Blood Partial Pressure O2 86.4, Arterial Blood HCO3 26.8H, Arterial Blood Oxygen Saturation 95.5, Arterial Blood Base Excess 2.6, Shaun Test Positive Current Medications Medications (Trade) Dose Ordered Sig/Ramiro Route PRN Reason Start Time Stop Time Status Last Admin Dose Admin Acetaminophen (Tylenol) 650 mg Q4H PRN ORAL fever>100.5 03/12/17 07:30 04/11/17 07:29 Albuterol/ Ipratropium (DuoNeb 0.5-3(2.5)mg/3ml) 3 ml Q4H PRN HHN Shortness of Breath 03/16/17 16:00 03/21/17 15:59 Artificial Tears (Akwa-Tears) 2 drop Q2H PRN BOTH EYES Dry Eyes 03/15/17 16:30 04/14/17 16:29 03/16/17 00:54 Clotrimazole (Lotrimin) 1 applic EVERY 12 HOURS TOPIC 03/20/17 21:00 04/19/17 20:59 03/21/17 08:30 Dextrose (Dextrose 50%) STAT PRN IV Hypoglycemia 03/12/17 10:00 04/11/17 09:59 Famotidine (Pepcid I.v.) 20 mg DAILY IVP 03/13/17 10:00 04/12/17 09:59 03/21/17 08:30 Heparin Sodium (Porcine) (Heparin 5000 units/ml) 5,000 units EVERY 12 HOURS SUBQ 03/12/17 09:00 04/11/17 08:59 03/21/17 08:29 Insulin Aspart (NovoLOG) Q4H SUBQ 03/12/17 12:00 04/11/17 11:59 03/21/17 08:27 Insulin Detemir (Levemir) 5 units DAILY SUBQ 03/15/17 14:00 04/14/17 13:59 03/21/17 08:28 Norepinephrine Bitartrate 4 mg/ Dextrose 254 ml @ 0 mls/hr Q24H IV 03/12/17 07:30 04/11/17 07:29 Ondansetron HCl (Zofran) 4 mg Q6H PRN IVP Nausea & Vomiting 03/12/17 07:30 04/11/17 07:29 Polyethylene Glycol (Miralax) 17 gm DAILYPRN PRN ORAL Constipation 03/12/17 07:30 04/11/17 07:29 Vancomycin HCl (Vanco rx to dose) 1 ea DAILY PRN MISC PER RX PROTOCOL 03/13/17 11:30 04/12/17 11:29 Vancomycin/Sodium Chloride 250 ml @ 166.667 mls/hr Q24H IVPB 03/16/17 17:00 03/21/17 17:15 03/20/17 16:30 ZAIRA ROSALES Mar 21, 2017 09:55
--- NOTE | 2017-03-21 11:23 | Diagnostic Imaging Report ---
Indication: Dyspnea Comparison: 03/20/17 A single view chest radiograph was obtained. Findings: Patchy infiltrates unchanged. Endotracheal tube position remains satisfactory unchanged. Heart size is stable. Impression: No change.
--- NOTE | 2017-03-21 13:34 | General Progress Note ---
Assessment/Plan Status: stable - from renal stand Assessment/Plan Respiratory failure requiring intubation Severe sepsis secondary to pneumonia, resolving UTI Acute cystitis without hematuria Pneumonia, non cavitary, w/o effusion Dementia Acute renal failure , Dehydration Hypoxemic respiratory failure Type 2 diabetes mellitus with hyperglycemia Proteinuria Plan: Pulm support- Monitor renal parameters Urine studies- Avoid Nephrotoxics- Per Orders Subjective ROS Limited/Unobtainable: Yes Allergies: Coded Allergies: LORAZEPAM (Unverified Allergy, Unknown, 03/02/17) METOCLOPRAMIDE (Unverified Allergy, Unknown, 03/02/17) QUETIAPINE (Unverified Allergy, Unknown, 03/02/17) ZOLPIDEM (Unverified Allergy, Unknown, 03/02/17) Objective Last 24 Hour Vital Signs Date Time Temp Pulse Resp B/P (MAP) Pulse Ox O2 Delivery O2 Flow Rate FiO2 03/21/17 13:32 30 03/21/17 13:27 76 26 30 03/21/17 13:00 75 20 163/58 100 Mechanical Ventilator 03/21/17 12:00 30 03/21/17 12:00 98.0 76 17 152/81 100 Mechanical Ventilator 30 03/21/17 12:00 76 03/21/17 11:01 76 26 30 03/21/17 11:00 77 20 152/58 99 Mechanical Ventilator 03/21/17 10:03 100 03/21/17 10:00 53 20 121/44 99 Mechanical Ventilator 30 03/21/17 10:00 30 03/21/17 09:05 58 18 30 03/21/17 09:00 59 19 141/43 99 Mechanical Ventilator 30 03/21/17 08:00 30 03/21/17 08:00 98.2 61 24 141/63 99 Mechanical Ventilator 03/21/17 08:00 59 03/21/17 07:30 126/69 03/21/17 07:23 61 18 30 03/21/17 07:00 62 19 122/69 99 Mechanical Ventilator 03/21/17 06:00 63 19 120/51 99 Mechanical Ventilator 30 03/21/17 05:22 60 18 30 03/21/17 05:00 65 19 120/51 99 Mechanical Ventilator 30 03/21/17 04:00 30 03/21/17 04:00 59 03/21/17 04:00 97.9 59 24 133/94 99 Mechanical Ventilator 30 03/21/17 03:21 62 18 30 03/21/17 03:00 52 20 133/36 100 Mechanical Ventilator 30 03/21/17 02:00 65 24 145/50 100 Mechanical Ventilator 30 03/21/17 01:17 53 18 30 03/21/17 01:00 54 24 120/37 100 Mechanical Ventilator 30 03/21/17 00:00 30 03/21/17 00:00 53 03/21/17 00:00 97.9 51 24 140/40 100 Mechanical Ventilator 30 03/20/17 23:00 55 24 115/35 100 Mechanical Ventilator 30 03/20/17 22:37 52 18 30 03/20/17 22:00 55 24 115/35 100 Mechanical Ventilator 30 03/20/17 21:25 68 19 30 03/20/17 21:00 68 19 135/47 100 Mechanical Ventilator 30 03/20/17 20:00 98.0 66 22 144/50 100 Mechanical Ventilator 03/20/17 20:00 59 03/20/17 20:00 30 03/20/17 19:18 58 18 30 03/20/17 19:00 98.2 60 18 150/48 100 Mechanical Ventilator 30 03/20/17 18:00 60 19 153/73 100 Mechanical Ventilator 03/20/17 17:00 62 19 140/40 100 Mechanical Ventilator 30 03/20/17 16:58 64 18 30 03/20/17 16:00 60 19 122/40 100 Mechanical Ventilator 30 03/20/17 16:00 30 03/20/17 16:00 60 03/20/17 15:34 54 18 30 03/20/17 15:00 57 20 111/60 100 Mechanical Ventilator 30 03/20/17 14:00 62 20 135/80 100 Mechanical Ventilator 30 03/20/17 13:36 78 18 30 Intake and Output 03/21/17 03/22/17 19:00 07:00 Intake Total 370 ml Output Total 210 ml Balance 160 ml Free Water 100 ml Tube Feeding 270 ml Output Urine Total 210 ml Laboratory Tests 03/21/17 03:45: White Blood Count 6.7, Red Blood Count 2.58L, Hemoglobin 9.1L, Hematocrit 26.4L , Mean Corpuscular Volume 102H, Mean Corpuscular Hemoglobin 35.2H, Mean Corpuscular Hemoglobin Concent 34.4, Red Cell Distribution Width 15.5H, Platelet Count 271, Mean Platelet Volume 9.1, Neutrophils (%) (Auto) 69.8, Lymphocytes (%) (Auto) 14.8L, Monocytes (%) (Auto) 10.9H, Eosinophils (%) (Auto ) 3.3H, Basophils (%) (Auto) 1.3, Sodium Level 140, Potassium Level 4.0, Chloride Level 105, Carbon Dioxide Level 25, Anion Gap 10, Blood Urea Nitrogen 27H, Creatinine 0.6, Estimat Glomerular Filtration Rate , Glucose Level 176H, Calcium Level 9.0, Phosphorus Level 3.1, Magnesium Level 1.9, Total Bilirubin 0.3, Aspartate Amino Transf (AST/SGOT) 28, Alanine Aminotransferase (ALT/SGPT) 13, Alkaline Phosphatase 106H, Total Protein 5.4L, Albumin 2.1L, Globulin 3.3, Albumin/Globulin Ratio 0.6L 03/21/17 09:06: Arterial Blood pH 7.440, Arterial Blood Partial Pressure CO2 39.9, Arterial Blood Partial Pressure O2 86.4, Arterial Blood HCO3 26.8H, Arterial Blood Oxygen Saturation 95.5, Arterial Blood Base Excess 2.6, Shaun Test Positive Height (Feet): 5 Height (Inches): 2.00 Weight (Pounds): 120 General Appearance: no apparent distress Objective PE not changed IRWIN DAMON Mar 21, 2017 13:34
--- NOTE | 2017-03-21 15:26 | Infectious Diseases Prog Note ---
Assessment/Plan Assessment/Plan IMPRESSION: 1. Severe sepsis with multiorgan failure, improving, secondary to pneumonia s/p recent admission for hypoxemic resp failure and pneumonia, treated with D#7 IV vanc/cefepime completed on [id number] ucx neg 03/12 blood cx negative for MRSA/MSSA 2. Bibasilar staph aureus pneumonia 3. Acute respiratory failure. 4. Acute renal failure, SP 5. Diabetes type 2 with hyperglycemia. 6. Dementia. 7. Methicillin resistant Staphylococcus aureus colonization. 8. lactic acidosis, resolved 9. CoNS bacteremia vs contamination (03/12), s/p >7D IV vanc. consider treated. 10. mild R>L Tinea cruris on clotrimazole. Plan: --continue IV vancomycin D# 9 of (03/15 s/p IV meropenem D#4) --monitor blood cx --monitor CBC --monitor temp curve -- Wean off Vent as per Pul -- off of pressors -- continue clotrimazole to inguinal creases Subjective ROS Limited/Unobtainable: Yes Allergies: Coded Allergies: LORAZEPAM (Unverified Allergy, Unknown, 03/02/17) METOCLOPRAMIDE (Unverified Allergy, Unknown, 03/02/17) QUETIAPINE (Unverified Allergy, Unknown, 03/02/17) ZOLPIDEM (Unverified Allergy, Unknown, 03/02/17) Subjective afebrile. leukocytosis of 22 on admission resolved as of hospital d#4. Objective Vital Signs Last 24 Hour Vital Signs Date Time Temp Pulse Resp B/P (MAP) Pulse Ox O2 Delivery O2 Flow Rate FiO2 03/21/17 15:02 30 03/21/17 15:00 82 20 175/58 100 Mechanical Ventilator 30 03/21/17 14:59 97 27 30 03/21/17 14:55 97 27 30 03/21/17 14:00 95 18 148/47 100 Mechanical Ventilator 03/21/17 13:32 30 03/21/17 13:27 76 26 30 03/21/17 13:00 75 20 163/58 100 Mechanical Ventilator 30 03/21/17 12:00 30 03/21/17 12:00 98.0 76 17 152/81 100 Mechanical Ventilator 03/21/17 12:00 76 03/21/17 11:01 76 26 30 03/21/17 11:00 77 20 152/58 99 Mechanical Ventilator 30 03/21/17 10:03 100 03/21/17 10:00 53 20 121/44 99 Mechanical Ventilator 30 03/21/17 10:00 30 03/21/17 09:05 58 18 30 03/21/17 09:00 59 19 141/43 99 Mechanical Ventilator 30 03/21/17 08:00 30 03/21/17 08:00 98.2 61 24 141/63 99 Mechanical Ventilator 30 03/21/17 08:00 59 03/21/17 07:30 126/69 03/21/17 07:23 61 18 30 03/21/17 07:00 62 19 122/69 99 Mechanical Ventilator 30 03/21/17 06:00 63 19 120/51 99 Mechanical Ventilator 30 03/21/17 05:22 60 18 30 03/21/17 05:00 65 19 120/51 99 Mechanical Ventilator 30 03/21/17 04:00 30 03/21/17 04:00 59 03/21/17 04:00 97.9 59 24 133/94 99 Mechanical Ventilator 30 03/21/17 03:21 62 18 30 03/21/17 03:00 52 20 133/36 100 Mechanical Ventilator 30 03/21/17 02:00 65 24 145/50 100 Mechanical Ventilator 30 03/21/17 01:17 53 18 30 03/21/17 01:00 54 24 120/37 100 Mechanical Ventilator 30 03/21/17 00:00 30 03/21/17 00:00 53 03/21/17 00:00 97.9 51 24 140/40 100 Mechanical Ventilator 30 03/20/17 23:00 55 24 115/35 100 Mechanical Ventilator 30 03/20/17 22:37 52 18 30 03/20/17 22:00 55 24 115/35 100 Mechanical Ventilator 30 03/20/17 21:25 68 19 30 03/20/17 21:00 68 19 135/47 100 Mechanical Ventilator 30 03/20/17 20:00 98.0 66 22 144/50 100 Mechanical Ventilator 30 03/20/17 20:00 59 03/20/17 20:00 30 03/20/17 19:18 58 18 30 03/20/17 19:00 98.2 60 18 150/48 100 Mechanical Ventilator 30 03/20/17 18:00 60 19 153/73 100 Mechanical Ventilator 30 03/20/17 17:00 62 19 140/40 100 Mechanical Ventilator 30 03/20/17 16:58 64 18 30 03/20/17 16:00 60 19 122/40 100 Mechanical Ventilator 30 03/20/17 16:00 30 03/20/17 16:00 60 03/20/17 15:34 54 18 30 Height (Feet): 5 Height (Inches): 2.00 Weight (Pounds): 120 Objective gen: intubated, not currently sedated, opens eyes. heent: oral mucosa dry, sclera anicteric cv: rrr lungs: coarse rhonchi abd: G tube in place, soft, nttp ext: trace ble. s/p prior R femoral TLC CVC site well healed. bue contractures , mild. gu: wayne in place draining clear yellow urine. skin: R>L inguinal tinea cruris, no petechiae. Laboratory Tests Test 03/21/17 03:45 03/21/17 09:06 White Blood Count 6.7 K/UL (4.8-10.8) Red Blood Count 2.58 M/UL (4.20-5.40) L Hemoglobin 9.1 G/DL (12.0-16.0) L Hematocrit 26.4 % (37.0-47.0) L Mean Corpuscular Volume 102 FL (80-99) H Mean Corpuscular Hemoglobin 35.2 PG (27.0-31.0) H Mean Corpuscular Hemoglobin Concent 34.4 G/DL (32.0-36.0) Red Cell Distribution Width 15.5 % (11.6-14.8) H Platelet Count 271 K/UL (150-450) Mean Platelet Volume 9.1 FL (6.5-10.1) Neutrophils (%) (Auto) 69.8 % (45.0-75.0) Lymphocytes (%) (Auto) 14.8 % (20.0-45.0) L Monocytes (%) (Auto) 10.9 % (1.0-10.0) H Eosinophils (%) (Auto) 3.3 % (0.0-3.0) H Basophils (%) (Auto) 1.3 % (0.0-2.0) Sodium Level 140 mEQ/L (135-145) Potassium Level 4.0 mEQ/L (3.4-4.9) Chloride Level 105 mEQ/L (98-107) Carbon Dioxide Level 25 mEQ/L (20-30) Anion Gap 10 (5-15) Blood Urea Nitrogen 27 mg/dL (7-23) H Creatinine 0.6 mg/dL (0.5-0.9) Estimat Glomerular Filtration Rate mL/min (>60) Glucose Level 176 mg/dL (74-106) H Calcium Level 9.0 mg/dL (8.6-10.2) Phosphorus Level 3.1 mg/dL (2.5-4.8) Magnesium Level 1.9 mg/dL (1.7-2.5) Total Bilirubin 0.3 mg/dL (0.0-1.2) Aspartate Amino Transf (AST/SGOT) 28 U/L (5-40) Alanine Aminotransferase (ALT/SGPT) 13 U/L (3-33) Alkaline Phosphatase 106 U/L (35-104) H Total Protein 5.4 g/dL (6.6-8.7) L Albumin 2.1 g/dL (3.5-5.2) L Globulin 3.3 g/dL Albumin/Globulin Ratio 0.6 (1.0-2.7) L Arterial Blood pH 7.440 (7.350-7.450) Arterial Blood Partial Pressure CO2 39.9 mmHg (35.0-45.0) Arterial Blood Partial Pressure O2 86.4 mmHg (75.0-100.0) Arterial Blood HCO3 26.8 mmol/L (22.0-26.0) H Arterial Blood Oxygen Saturation 95.5 % (92.0-98.0) Arterial Blood Base Excess 2.6 Shaun Test Positive Current Medications Medications (Trade) Dose Ordered Sig/Ramiro Route PRN Reason Start Time Stop Time Status Last Admin Dose Admin Acetaminophen (Tylenol) 650 mg Q4H PRN ORAL fever>100.5 03/12/17 07:30 04/11/17 07:29 Albuterol/ Ipratropium (DuoNeb 0.5-3(2.5)mg/3ml) 3 ml Q4H PRN HHN Shortness of Breath 03/16/17 16:00 03/21/17 15:59 Artificial Tears (Akwa-Tears) 2 drop Q2H PRN BOTH EYES Dry Eyes 03/15/17 16:30 04/14/17 16:29 03/16/17 00:54 Clotrimazole (Lotrimin) 1 applic EVERY 12 HOURS TOPIC 03/20/17 21:00 04/19/17 20:59 03/21/17 08:30 Dextrose (Dextrose 50%) STAT PRN IV Hypoglycemia 03/12/17 10:00 04/11/17 09:59 Famotidine (Pepcid I.v.) 20 mg DAILY IVP 03/13/17 10:00 04/12/17 09:59 03/21/17 08:30 Heparin Sodium (Porcine) (Heparin 5000 units/ml) 5,000 units EVERY 12 HOURS SUBQ 03/12/17 09:00 04/11/17 08:59 03/21/17 08:29 Insulin Aspart (NovoLOG) Q4H SUBQ 03/12/17 12:00 04/11/17 11:59 03/21/17 12:19 Insulin Detemir (Levemir) 5 units DAILY SUBQ 03/15/17 14:00 04/14/17 13:59 03/21/17 08:28 Norepinephrine Bitartrate 4 mg/ Dextrose 254 ml @ 0 mls/hr Q24H IV 03/12/17 07:30 04/11/17 07:29 Ondansetron HCl (Zofran) 4 mg Q6H PRN IVP Nausea & Vomiting 03/12/17 07:30 04/11/17 07:29 Polyethylene Glycol (Miralax) 17 gm DAILYPRN PRN ORAL Constipation 03/12/17 07:30 04/11/17 07:29 Vancomycin HCl (Vanco rx to dose) 1 ea DAILY PRN MISC PER RX PROTOCOL 03/13/17 11:30 04/12/17 11:29 Vancomycin/Sodium Chloride 250 ml @ 166.667 mls/hr Q24H IVPB 03/16/17 17:00 03/25/17 23:59 03/20/17 16:30 Paul Amaya M.D. Mar 21, 2017 15:26
[2017-03-21] MEDS ORDERED: Tubing IV Secondary IV ONE (16:26)
[2017-03-21] MEDS: Vancomycin 750mg/NS 250ml 250 ML IVPB SCH (17:19)
[2017-03-21] MEDS: Artificial Tears 1.4% Op Soln BOTH EYES PRN (18:29)
--- NOTE | 2017-03-21 23:10 | General Progress Note ---
Assessment/Plan Status: unchanged Assessment/Plan 1. Leukocytosis, secondary to underlying sepsis. Continue monitoring. --> Has been resolved --> WBC 6.0 2. Anemia secondary to chronic disease. Ferritin is elevated, TIBC is low. --> transfuse if hgb is less than 8 or symptomatic --> monitor counts --> has been stable >9 --> occult blood negative and hiv panel negative 4. Coagulopathy, potentially secondary to underlying sepsis as well. --> PTT and prothrombin time now WNL --> continue to monitor 5. Methicillin-resistant Staphylococcus aureus colonization. 6. Respiratory failure, status post intubation. 7. Acute kidney injury. --> nephrology following Subjective Date patient seen: Mar 21, 2017 Time patient seen: 06:00 Hematologic/Lymphatic: Reports: anemia Allergies: Coded Allergies: LORAZEPAM (Unverified Allergy, Unknown, 03/02/17) METOCLOPRAMIDE (Unverified Allergy, Unknown, 03/02/17) QUETIAPINE (Unverified Allergy, Unknown, 03/02/17) ZOLPIDEM (Unverified Allergy, Unknown, 03/02/17) Subjective Patient intubated. Comfortable. No complaints of pain. Afebrile. Stable. Objective Last 24 Hour Vital Signs Date Time Temp Pulse Resp B/P (MAP) Pulse Ox O2 Delivery O2 Flow Rate FiO2 03/21/17 20:34 69 18 30 03/21/17 19:25 61 18 30 03/21/17 19:00 63 18 136/53 100 Mechanical Ventilator 03/21/17 18:00 64 18 123/50 99 Mechanical Ventilator 03/21/17 17:02 64 18 03/21/17 17:00 98.4 63 19 146/69 100 Mechanical Ventilator 03/21/17 16:00 64 03/21/17 16:00 65 18 126/49 100 Mechanical Ventilator 03/21/17 15:02 30 03/21/17 15:00 82 20 175/58 100 Mechanical Ventilator 03/21/17 14:55 97 27 30 03/21/17 14:00 95 18 148/47 100 Mechanical Ventilator 03/21/17 13:32 30 03/21/17 13:27 76 26 30 03/21/17 13:00 75 20 163/58 100 Mechanical Ventilator 03/21/17 12:00 30 03/21/17 12:00 98.0 76 17 152/81 100 Mechanical Ventilator 30 03/21/17 12:00 76 03/21/17 11:01 76 26 30 03/21/17 11:00 77 20 152/58 99 Mechanical Ventilator 30 03/21/17 10:03 100 03/21/17 10:00 53 20 121/44 99 Mechanical Ventilator 30 03/21/17 10:00 30 03/21/17 09:05 58 18 30 03/21/17 09:00 59 19 141/43 99 Mechanical Ventilator 30 03/21/17 08:00 30 03/21/17 08:00 98.2 61 24 141/63 99 Mechanical Ventilator 30 03/21/17 08:00 59 03/21/17 07:30 126/69 03/21/17 07:23 61 18 30 03/21/17 07:00 62 19 122/69 99 Mechanical Ventilator 30 03/21/17 06:00 63 19 120/51 99 Mechanical Ventilator 30 03/21/17 05:22 60 18 30 03/21/17 05:00 65 19 120/51 99 Mechanical Ventilator 30 03/21/17 04:00 30 03/21/17 04:00 59 03/21/17 04:00 97.9 59 24 133/94 99 Mechanical Ventilator 03/21/17 03:21 62 18 30 03/21/17 03:00 52 20 133/36 100 Mechanical Ventilator 30 03/21/17 02:00 65 24 145/50 100 Mechanical Ventilator 30 03/21/17 01:17 53 18 30 03/21/17 01:00 54 24 120/37 100 Mechanical Ventilator 30 03/21/17 00:00 30 03/21/17 00:00 53 03/21/17 00:00 97.9 51 24 140/40 100 Mechanical Ventilator 30 Intake and Output 03/21/17 03/22/17 19:00 07:00 Intake Total 640 ml Output Total 385 ml Balance 255 ml Free Water 100 ml Tube Feeding 540 ml Output Urine Total 385 ml Laboratory Tests 03/21/17 03:45: White Blood Count 6.7, Red Blood Count 2.58L, Hemoglobin 9.1L, Hematocrit 26.4L , Mean Corpuscular Volume 102H, Mean Corpuscular Hemoglobin 35.2H, Mean Corpuscular Hemoglobin Concent 34.4, Red Cell Distribution Width 15.5H, Platelet Count 271, Mean Platelet Volume 9.1, Neutrophils (%) (Auto) 69.8, Lymphocytes (%) (Auto) 14.8L, Monocytes (%) (Auto) 10.9H, Eosinophils (%) (Auto ) 3.3H, Basophils (%) (Auto) 1.3, Sodium Level 140, Potassium Level 4.0, Chloride Level 105, Carbon Dioxide Level 25, Anion Gap 10, Blood Urea Nitrogen 27H, Creatinine 0.6, Estimat Glomerular Filtration Rate , Glucose Level 176H, Calcium Level 9.0, Phosphorus Level 3.1, Magnesium Level 1.9, Total Bilirubin 0.3, Aspartate Amino Transf (AST/SGOT) 28, Alanine Aminotransferase (ALT/SGPT) 13, Alkaline Phosphatase 106H, Total Protein 5.4L, Albumin 2.1L, Globulin 3.3, Albumin/Globulin Ratio 0.6L 03/21/17 09:06: Arterial Blood pH 7.440, Arterial Blood Partial Pressure CO2 39.9, Arterial Blood Partial Pressure O2 86.4, Arterial Blood HCO3 26.8H, Arterial Blood Oxygen Saturation 95.5, Arterial Blood Base Excess 2.6, Shaun Test Positive 03/21/17 16:15: Vancomycin Level Trough 17.7H Height (Feet): 5 Height (Inches): 2.00 Weight (Pounds): 120 General Appearance: no apparent distress Neck: normal alignment, supple Cardiovascular: normal rate, regular rhythm Respiratory/Chest: chest wall non-tender, lungs clear Abdomen: normal bowel sounds, non tender REBEKAH ARRIETA Mar 21, 2017 23:09
[2017-03-22] VITALS (24 sets, daily range): BP systolic 105–154; BP diastolic 32–57
[2017-03-22] MEDS: NovoLOG Insulin Flexpen SUBQ SCH ×7 (00:38→23:51)
[2017-03-22 05:22] LABS: BASOPHILS % (AUTO) 1.1 % (0.0-2.0); MEAN CORPUSCULAR HEMOGLOBIN 34.1 PG (27.0-31.0); MEAN CORPUSCULAR HGB CONC 33.6 G/DL (32.0-36.0); MEAN CORPUSCULAR VOLUME 102 FL (80-99); MONOCYTES % (AUTO) 7.4 % (1.0-10.0); NEUTROPHILS % (AUTO) 75.4 % (45.0-75.0); PLATELET COUNT 294 K/UL (150-450); RED BLOOD COUNT 2.59 M/UL (4.20-5.40); RED CELL DISTRIBUTION WIDTH 14.7 % (11.6-14.8); WHITE BLOOD COUNT 8.1 K/UL (4.8-10.8)
[2017-03-22 05:36] LABS: INR 0.9 (0.9-1.1); PROTHROMBIN TIME 9.7 SEC (9.30-11.50)
[2017-03-22 05:37] LABS: ALANINE AMINOTRANSFERASE 13 U/L (3-33); ALBUMIN/GLOBULIN RATIO 0.6 (1.0-2.7); ANION GAP 11 (5-15); ASPARTATE AMINO TRANSFERASE 27 U/L (5-40); CARBON DIOXIDE 25 mEQ/L (20-30); CHLORIDE 101 mEQ/L (98-107); CREATININE 0.7 mg/dL (0.5-0.9); HEMOLYSIS 47; POTASSIUM 3.9 mEQ/L (3.4-4.9); SODIUM 137 mEQ/L (135-145); TOTAL PROTEIN 5.5 g/dL (6.6-8.7)
[2017-03-22] MEDS: Famotidine 20 MG/ 2ML VIAL IVP SCH (08:16)
[2017-03-22] MEDS: Levemir Flexpen SUBQ SCH (08:16)
[2017-03-22] MEDS: Heparin 5000 units/ml inj SUBQ SCH ×2 (08:17→20:33)
[2017-03-22 09:27] LABS: ABG BASE EXCESS 3.4; ABG PCO2 39.4 mmHg (35.0-45.0)
[2017-03-22 09:28] LABS: ABG ALLEN TEST POSITIVE
--- NOTE | 2017-03-22 10:19 | Pulmonolgy Critical Care Note ---
Critical Care - Asmt/Plan Problems: (1) Respiratory failure requiring intubation (2) Pneumonia (3) Anemia (4) Advanced dementia (5) Feeding by G-tube (6) Severe sepsis Respiratory: monitor respiratory rate, adjust FIO2, CXR Cardiac: continue to monitor HR/BP Renal: F/U I&O, keep IV fluid, other Infectious Disease: check cultures, continue antibiotics Gastrointestinal: continue feedings/current rate Endocrine: monitor blood sugar, check TSH, check HgA1C, continue sliding scale insulin Hematologic: monitor H/H, transfuse if hgb<8.5 Neurologic: PRN Morphine, keep patient comfortable Prophylaxis: Heparin Disposition: keep in ICU Notes Reviewed: cardio, renal Discussed with: nurses, consultants, 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 - Objective Last 24 Hour Vital Signs Date Time Temp Pulse Resp B/P (MAP) Pulse Ox O2 Delivery O2 Flow Rate FiO2 03/22/17 09:57 30 03/22/17 09:43 100 03/22/17 09:16 64 20 30 03/22/17 09:00 67 20 117/33 100 Mechanical Ventilator 30 03/22/17 08:00 30 03/22/17 08:00 98.4 59 21 129/45 99 Mechanical Ventilator 30 03/22/17 08:00 59 03/22/17 07:21 105/32 03/22/17 07:18 76 25 30 03/22/17 07:00 73 23 105/32 98 Mechanical Ventilator 30 03/22/17 06:00 55 21 115/34 98 Mechanical Ventilator 30 03/22/17 05:20 50 18 30 03/22/17 05:00 51 24 111/34 98 Mechanical Ventilator 30 03/22/17 04:00 30 03/22/17 04:00 98.7 62 24 129/45 100 Mechanical Ventilator 30 03/22/17 04:00 62 03/22/17 03:00 59 19 127/33 100 Mechanical Ventilator 30 03/22/17 02:56 60 18 30 03/22/17 02:00 59 18 121/57 100 Mechanical Ventilator 30 03/22/17 01:27 60 18 30 03/22/17 01:00 60 18 137/42 100 Mechanical Ventilator 30 03/22/17 00:00 30 03/22/17 00:00 68 03/22/17 00:00 98.4 64 20 154/51 100 Mechanical Ventilator 30 03/21/17 23:23 60 18 30 03/21/17 23:00 59 18 121/44 100 Mechanical Ventilator 03/21/17 22:00 71 22 145/45 100 Mechanical Ventilator 30 03/21/17 21:00 67 19 151/49 100 Mechanical Ventilator 03/21/17 20:34 69 18 30 03/21/17 20:00 98.6 61 18 152/51 100 Mechanical Ventilator 03/21/17 20:00 61 03/21/17 20:00 30 03/21/17 19:25 61 18 30 03/21/17 19:00 63 18 136/53 100 Mechanical Ventilator 30 03/21/17 18:00 64 18 123/50 99 Mechanical Ventilator 03/21/17 17:02 64 18 03/21/17 17:00 98.4 63 19 146/69 100 Mechanical Ventilator 03/21/17 16:00 64 03/21/17 16:00 65 18 126/49 100 Mechanical Ventilator 03/21/17 15:02 30 03/21/17 15:00 82 20 175/58 100 Mechanical Ventilator 03/21/17 14:55 97 27 30 03/21/17 14:00 95 18 148/47 100 Mechanical Ventilator 03/21/17 13:32 30 03/21/17 13:27 76 26 30 03/21/17 13:00 75 20 163/58 100 Mechanical Ventilator 03/21/17 12:00 30 03/21/17 12:00 98.0 76 17 152/81 100 Mechanical Ventilator 03/21/17 12:00 76 03/21/17 11:01 76 26 30 03/21/17 11:00 77 20 152/58 99 Mechanical Ventilator 30 Status: awake Condition: critical HEENT: atraumatic, normocephalic Lungs: clear, chest wall tender Heart: HR/BP stable Abdomen: soft, non-tender, active bowel sounds Extremities: no C/C/E, edema Accucheck: 154 Critical Care - Subjective ROS Limited/Unobtainable: No ICU Day: 10 Condition: critical EKG Rhythm: Sinus Rhythm FI02: 30 Vent Support Breath Rate: 14 Vent Support Mode: IMV/SIMV Vent Tidal Volume: 500 Sputum Amount: Small PEEP: 5.0 PIP: 25 Tube Feeding Amount: 45 I&O: Intake and Output 03/22/17 03/23/17 19:00 07:00 Intake Total 190 ml Output Total 60 ml Balance 130 ml Free Water 100 ml Tube Feeding 90 ml Output Urine Total 60 ml CXR: no change ET-Tube: 7.0 ET Position: 21 Labs: Laboratory Tests Test 03/21/17 16:15 03/22/17 05:00 03/22/17 09:17 Vancomycin Level Trough 17.7 ug/mL (5.0-12.0) H White Blood Count 8.1 K/UL (4.8-10.8) Red Blood Count 2.59 M/UL (4.20-5.40) L Hemoglobin 8.8 G/DL (12.0-16.0) L Hematocrit 26.4 % (37.0-47.0) L Mean Corpuscular Volume 102 FL (80-99) H Mean Corpuscular Hemoglobin 34.1 PG (27.0-31.0) H Mean Corpuscular Hemoglobin Concent 33.6 G/DL (32.0-36.0) Red Cell Distribution Width 14.7 % (11.6-14.8) Platelet Count 294 K/UL (150-450) Mean Platelet Volume 8.0 FL (6.5-10.1) Neutrophils (%) (Auto) 75.4 % (45.0-75.0) H Lymphocytes (%) (Auto) 13.0 % (20.0-45.0) L Monocytes (%) (Auto) 7.4 % (1.0-10.0) Eosinophils (%) (Auto) 3.0 % (0.0-3.0) Basophils (%) (Auto) 1.1 % (0.0-2.0) Prothrombin Time 9.7 SEC (9.30-11.50) Prothromb Time International Ratio 0.9 (0.9-1.1) Activated Partial Thromboplast Time 24 SEC (23-33) Sodium Level 137 mEQ/L (135-145) Potassium Level 3.9 mEQ/L (3.4-4.9) Chloride Level 101 mEQ/L (98-107) Carbon Dioxide Level 25 mEQ/L (20-30) Anion Gap 11 (5-15) Blood Urea Nitrogen 29 mg/dL (7-23) H Creatinine 0.7 mg/dL (0.5-0.9) Estimat Glomerular Filtration Rate mL/min (>60) Glucose Level 183 mg/dL (74-106) H Calcium Level 9.0 mg/dL (8.6-10.2) Phosphorus Level 3.0 mg/dL (2.5-4.8) Magnesium Level 2.0 mg/dL (1.7-2.5) Total Bilirubin < 0.2 mg/dL (0.0-1.2) Aspartate Amino Transf (AST/SGOT) 27 U/L (5-40) Alanine Aminotransferase (ALT/SGPT) 13 U/L (3-33) Alkaline Phosphatase 100 U/L (35-104) Total Protein 5.5 g/dL (6.6-8.7) L Albumin 2.1 g/dL (3.5-5.2) L Globulin 3.4 g/dL Albumin/Globulin Ratio 0.6 (1.0-2.7) L Arterial Blood pH 7.460 (7.350-7.450) Arterial Blood Partial Pressure CO2 39.4 mmHg (35.0-45.0) Arterial Blood Partial Pressure O2 94.2 mmHg (75.0-100.0) Arterial Blood HCO3 27.4 mmol/L (22.0-26.0) H Arterial Blood Oxygen Saturation 96.4 % (92.0-98.0) Arterial Blood Base Excess 3.4 Shaun Test Positive ZAIRA ROSALES Mar 22, 2017 10:19
--- NOTE | 2017-03-22 10:29 | Diagnostic Imaging Report ---
Indication: Dyspnea Comparison: 03/21/17 A single view chest radiograph was obtained. Findings: Infiltrates are present within the lungs bilaterally unchanged. Endotracheal tube position is just above the pema unchanged. Impression: No pipe changer the last day
[2017-03-22] MEDS: Artificial Tears 1.4% Op Soln BOTH EYES PRN (11:43)
--- NOTE | 2017-03-22 14:54 | General Progress Note ---
Assessment/Plan Status: stable - from renal stand Assessment/Plan Respiratory failure requiring intubation Severe sepsis secondary to pneumonia, resolving UTI Acute cystitis without hematuria Pneumonia, non cavitary, w/o effusion Dementia Acute renal failure , Dehydration Hypoxemic respiratory failure Type 2 diabetes mellitus with hyperglycemia Proteinuria Plan: Pulm support- Monitor renal parameters Urine studies- Avoid Nephrotoxics- Per Orders Subjective ROS Limited/Unobtainable: Yes Allergies: Coded Allergies: LORAZEPAM (Unverified Allergy, Unknown, 03/02/17) METOCLOPRAMIDE (Unverified Allergy, Unknown, 03/02/17) QUETIAPINE (Unverified Allergy, Unknown, 03/02/17) ZOLPIDEM (Unverified Allergy, Unknown, 03/02/17) Objective Last 24 Hour Vital Signs Date Time Temp Pulse Resp B/P (MAP) Pulse Ox O2 Delivery O2 Flow Rate FiO2 03/22/17 13:00 66 26 131/41 99 Mechanical Ventilator 30 03/22/17 12:47 68 24 30 03/22/17 12:45 30 03/22/17 12:00 98.3 60 30 134/40 100 Mechanical Ventilator 30 03/22/17 12:00 60 03/22/17 12:00 62 03/22/17 11:00 61 22 129/38 100 Mechanical Ventilator 30 03/22/17 10:54 67 24 30 03/22/17 10:00 68 14 128/42 100 Mechanical Ventilator 30 03/22/17 09:57 30 03/22/17 09:43 100 03/22/17 09:16 64 20 30 03/22/17 09:00 67 20 117/33 100 Mechanical Ventilator 30 03/22/17 08:00 30 03/22/17 08:00 98.4 59 21 129/45 99 Mechanical Ventilator 30 03/22/17 08:00 59 03/22/17 07:21 105/32 03/22/17 07:18 76 25 30 03/22/17 07:00 73 23 105/32 98 Mechanical Ventilator 30 03/22/17 06:00 55 21 115/34 98 Mechanical Ventilator 30 03/22/17 05:20 50 18 30 03/22/17 05:00 51 24 111/34 98 Mechanical Ventilator 30 03/22/17 04:00 30 03/22/17 04:00 98.7 62 24 129/45 100 Mechanical Ventilator 30 03/22/17 04:00 62 03/22/17 03:00 59 19 127/33 100 Mechanical Ventilator 30 03/22/17 02:56 60 18 30 03/22/17 02:00 59 18 121/57 100 Mechanical Ventilator 30 03/22/17 01:27 60 18 30 03/22/17 01:00 60 18 137/42 100 Mechanical Ventilator 30 03/22/17 00:00 30 03/22/17 00:00 68 03/22/17 00:00 98.4 64 20 154/51 100 Mechanical Ventilator 30 03/21/17 23:23 60 18 30 03/21/17 23:00 59 18 121/44 100 Mechanical Ventilator 03/21/17 22:00 71 22 145/45 100 Mechanical Ventilator 03/21/17 21:00 67 19 151/49 100 Mechanical Ventilator 03/21/17 20:34 69 18 30 03/21/17 20:00 98.6 61 18 152/51 100 Mechanical Ventilator 03/21/17 20:00 61 03/21/17 20:00 30 03/21/17 19:25 61 18 30 03/21/17 19:00 63 18 136/53 100 Mechanical Ventilator 03/21/17 18:00 64 18 123/50 99 Mechanical Ventilator 03/21/17 17:02 64 18 30 03/21/17 17:00 98.4 63 19 146/69 100 Mechanical Ventilator 30 03/21/17 16:00 64 03/21/17 16:00 65 18 126/49 100 Mechanical Ventilator 03/21/17 15:02 30 03/21/17 15:00 82 20 175/58 100 Mechanical Ventilator 03/21/17 14:55 97 27 30 Intake and Output 03/22/17 03/23/17 19:00 07:00 Intake Total 470 ml Output Total 180 ml Balance 290 ml Free Water 200 ml Tube Feeding 270 ml Output Urine Total 180 ml Laboratory Tests 03/21/17 16:15: Vancomycin Level Trough 17.7H 03/22/17 05:00: White Blood Count 8.1, Red Blood Count 2.59L, Hemoglobin 8.8L, Hematocrit 26.4L , Mean Corpuscular Volume 102H, Mean Corpuscular Hemoglobin 34.1H, Mean Corpuscular Hemoglobin Concent 33.6, Red Cell Distribution Width 14.7, Platelet Count 294, Mean Platelet Volume 8.0, Neutrophils (%) (Auto) 75.4H, Lymphocytes ( %) (Auto) 13.0L, Monocytes (%) (Auto) 7.4, Eosinophils (%) (Auto) 3.0, Basophils (%) (Auto) 1.1, Prothrombin Time 9.7, Prothromb Time International Ratio 0.9, Activated Partial Thromboplast Time 24, Sodium Level 137, Potassium Level 3.9, Chloride Level 101, Carbon Dioxide Level 25, Anion Gap 11, Blood Urea Nitrogen 29H, Creatinine 0.7, Estimat Glomerular Filtration Rate , Glucose Level 183H, Calcium Level 9.0, Phosphorus Level 3.0, Magnesium Level 2.0, Total Bilirubin < 0.2, Aspartate Amino Transf (AST/SGOT) 27, Alanine Aminotransferase (ALT/SGPT) 13, Alkaline Phosphatase 100, Total Protein 5.5L, Albumin 2.1L, Globulin 3.4, Albumin/Globulin Ratio 0.6L 03/22/17 09:17: Arterial Blood pH 7.460H, Arterial Blood Partial Pressure CO2 39.4, Arterial Blood Partial Pressure O2 94.2, Arterial Blood HCO3 27.4H, Arterial Blood Oxygen Saturation 96.4, Arterial Blood Base Excess 3.4, Shaun Test Positive Height (Feet): 5 Height (Inches): 2.00 Weight (Pounds): 129 General Appearance: no apparent distress Objective PE not changed IRWIN DAMON Mar 22, 2017 14:54
--- NOTE | 2017-03-22 15:00 | Infectious Diseases Prog Note ---
Assessment/Plan Assessment/Plan IMPRESSION: 1. Severe sepsis with multiorgan failure, improving, secondary to pneumonia s/p recent admission for hypoxemic resp failure and pneumonia, treated with D#7 IV vanc/cefepime completed on [id number] ucx neg 03/12 blood cx negative for MRSA/MSSA 2. Bibasilar staph aureus pneumonia 3. Acute respiratory failure. 4. Acute renal failure, SP 5. Diabetes type 2 with hyperglycemia. 6. Dementia. 7. Methicillin resistant Staphylococcus aureus colonization. 8. lactic acidosis, resolved 9. CoNS bacteremia vs contamination (03/12), s/p >7D IV vanc. consider treated. 10. mild R>L Tinea cruris on clotrimazole. Plan: --continue IV vancomycin D# 10 of (03/15 s/p IV meropenem D#4) --monitor blood cx --monitor CBC --monitor temp curve -- Wean off Vent as per Pul -- off of pressors -- continue clotrimazole to inguinal creases Subjective ROS Limited/Unobtainable: Yes Allergies: Coded Allergies: LORAZEPAM (Unverified Allergy, Unknown, 03/02/17) METOCLOPRAMIDE (Unverified Allergy, Unknown, 03/02/17) QUETIAPINE (Unverified Allergy, Unknown, 03/02/17) ZOLPIDEM (Unverified Allergy, Unknown, 03/02/17) Subjective afebrile. leukocytosis of 22 on admission resolved as of hospital d#4. Objective Vital Signs Last 24 Hour Vital Signs Date Time Temp Pulse Resp B/P (MAP) Pulse Ox O2 Delivery O2 Flow Rate FiO2 03/22/17 13:00 66 26 131/41 99 Mechanical Ventilator 30 03/22/17 12:47 68 24 30 03/22/17 12:45 30 03/22/17 12:00 98.3 60 30 134/40 100 Mechanical Ventilator 30 03/22/17 12:00 60 03/22/17 12:00 62 03/22/17 11:00 61 22 129/38 100 Mechanical Ventilator 30 03/22/17 10:54 67 24 30 03/22/17 10:00 68 14 128/42 100 Mechanical Ventilator 30 03/22/17 09:57 30 03/22/17 09:43 100 03/22/17 09:16 64 20 30 9/1/17 09:00 67 20 117/33 100 Mechanical Ventilator 30 03/22/17 08:00 30 03/22/17 08:00 98.4 59 21 129/45 99 Mechanical Ventilator 30 03/22/17 08:00 59 03/22/17 07:21 105/32 03/22/17 07:18 76 25 30 03/22/17 07:00 73 23 105/32 98 Mechanical Ventilator 30 03/22/17 06:00 55 21 115/34 98 Mechanical Ventilator 30 03/22/17 05:20 50 18 30 03/22/17 05:00 51 24 111/34 98 Mechanical Ventilator 30 03/22/17 04:00 30 03/22/17 04:00 98.7 62 24 129/45 100 Mechanical Ventilator 30 03/22/17 04:00 62 03/22/17 03:00 59 19 127/33 100 Mechanical Ventilator 30 03/22/17 02:56 60 18 30 03/22/17 02:00 59 18 121/57 100 Mechanical Ventilator 30 03/22/17 01:27 60 18 30 03/22/17 01:00 60 18 137/42 100 Mechanical Ventilator 30 03/22/17 00:00 30 03/22/17 00:00 68 03/22/17 00:00 98.4 64 20 154/51 100 Mechanical Ventilator 30 03/21/17 23:23 60 18 30 03/21/17 23:00 59 18 121/44 100 Mechanical Ventilator 30 03/21/17 22:00 71 22 145/45 100 Mechanical Ventilator 30 03/21/17 21:00 67 19 151/49 100 Mechanical Ventilator 30 03/21/17 20:34 69 18 30 03/21/17 20:00 98.6 61 18 152/51 100 Mechanical Ventilator 30 03/21/17 20:00 61 03/21/17 20:00 30 03/21/17 19:25 61 18 30 03/21/17 19:00 63 18 136/53 100 Mechanical Ventilator 30 03/21/17 18:00 64 18 123/50 99 Mechanical Ventilator 30 03/21/17 17:02 64 18 30 03/21/17 17:00 98.4 63 19 146/69 100 Mechanical Ventilator 30 03/21/17 16:00 64 03/21/17 16:00 65 18 126/49 100 Mechanical Ventilator 30 03/21/17 15:02 30 Height (Feet): 5 Height (Inches): 2.00 Weight (Pounds): 129 Objective gen: intubated, not currently sedated, opens eyes. heent: oral mucosa dry, sclera anicteric cv: rrr lungs: coarse rhonchi abd: G tube in place, soft, nttp ext: trace ble. s/p prior R femoral TLC CVC site well healed. bue contractures , mild. gu: wayne in place draining clear yellow urine. skin: R>L inguinal tinea cruris, no petechiae. Laboratory Tests Test 03/21/17 16:15 03/22/17 05:00 03/22/17 09:17 Vancomycin Level Trough 17.7 ug/mL (5.0-12.0) H White Blood Count 8.1 K/UL (4.8-10.8) Red Blood Count 2.59 M/UL (4.20-5.40) L Hemoglobin 8.8 G/DL (12.0-16.0) L Hematocrit 26.4 % (37.0-47.0) L Mean Corpuscular Volume 102 FL (80-99) H Mean Corpuscular Hemoglobin 34.1 PG (27.0-31.0) H Mean Corpuscular Hemoglobin Concent 33.6 G/DL (32.0-36.0) Red Cell Distribution Width 14.7 % (11.6-14.8) Platelet Count 294 K/UL (150-450) Mean Platelet Volume 8.0 FL (6.5-10.1) Neutrophils (%) (Auto) 75.4 % (45.0-75.0) H Lymphocytes (%) (Auto) 13.0 % (20.0-45.0) L Monocytes (%) (Auto) 7.4 % (1.0-10.0) Eosinophils (%) (Auto) 3.0 % (0.0-3.0) Basophils (%) (Auto) 1.1 % (0.0-2.0) Prothrombin Time 9.7 SEC (9.30-11.50) Prothromb Time International Ratio 0.9 (0.9-1.1) Activated Partial Thromboplast Time 24 SEC (23-33) Sodium Level 137 mEQ/L (135-145) Potassium Level 3.9 mEQ/L (3.4-4.9) Chloride Level 101 mEQ/L (98-107) Carbon Dioxide Level 25 mEQ/L (20-30) Anion Gap 11 (5-15) Blood Urea Nitrogen 29 mg/dL (7-23) H Creatinine 0.7 mg/dL (0.5-0.9) Estimat Glomerular Filtration Rate mL/min (>60) Glucose Level 183 mg/dL (74-106) H Calcium Level 9.0 mg/dL (8.6-10.2) Phosphorus Level 3.0 mg/dL (2.5-4.8) Magnesium Level 2.0 mg/dL (1.7-2.5) Total Bilirubin < 0.2 mg/dL (0.0-1.2) Aspartate Amino Transf (AST/SGOT) 27 U/L (5-40) Alanine Aminotransferase (ALT/SGPT) 13 U/L (3-33) Alkaline Phosphatase 100 U/L (35-104) Total Protein 5.5 g/dL (6.6-8.7) L Albumin 2.1 g/dL (3.5-5.2) L Globulin 3.4 g/dL Albumin/Globulin Ratio 0.6 (1.0-2.7) L Arterial Blood pH 7.460 (7.350-7.450) Arterial Blood Partial Pressure CO2 39.4 mmHg (35.0-45.0) Arterial Blood Partial Pressure O2 94.2 mmHg (75.0-100.0) Arterial Blood HCO3 27.4 mmol/L (22.0-26.0) H Arterial Blood Oxygen Saturation 96.4 % (92.0-98.0) Arterial Blood Base Excess 3.4 Shanu Test Positive Current Medications Medications (Trade) Dose Ordered Sig/Ramiro Route PRN Reason Start Time Stop Time Status Last Admin Dose Admin Acetaminophen (Tylenol) 650 mg Q4H PRN ORAL fever>100.5 03/12/17 07:30 04/11/17 07:29 Artificial Tears (Akwa-Tears) 2 drop Q2H PRN BOTH EYES Dry Eyes 03/15/17 16:30 04/14/17 16:29 03/22/17 11:43 Clotrimazole (Lotrimin) 1 applic EVERY 12 HOURS TOPIC 03/20/17 21:00 04/19/17 20:59 03/22/17 08:18 Dextrose (Dextrose 50%) STAT PRN IV Hypoglycemia 03/12/17 10:00 04/11/17 09:59 Famotidine (Pepcid I.v.) 20 mg DAILY IVP 03/13/17 10:00 04/12/17 09:59 03/22/17 08:16 Heparin Sodium (Porcine) (Heparin 5000 units/ml) 5,000 units EVERY 12 HOURS SUBQ 03/12/17 09:00 04/11/17 08:59 03/22/17 08:17 Insulin Aspart (NovoLOG) Q4H SUBQ 03/12/17 12:00 04/11/17 11:59 03/22/17 11:42 Insulin Detemir (Levemir) 5 units DAILY SUBQ 03/15/17 14:00 04/14/17 13:59 03/22/17 08:16 Norepinephrine Bitartrate 4 mg/ Dextrose 254 ml @ 0 mls/hr Q24H IV 03/12/17 07:30 04/11/17 07:29 Ondansetron HCl (Zofran) 4 mg Q6H PRN IVP Nausea & Vomiting 03/12/17 07:30 04/11/17 07:29 Polyethylene Glycol (Miralax) 17 gm DAILYPRN PRN ORAL Constipation 03/12/17 07:30 04/11/17 07:29 Vancomycin HCl (Vanco rx to dose) 1 ea DAILY PRN MISC PER RX PROTOCOL 03/13/17 11:30 04/12/17 11:29 Vancomycin/Sodium Chloride 250 ml @ 166.667 mls/hr Q24H IVPB 03/16/17 17:00 03/25/17 23:59 03/21/17 17:19 Paul Amaya M.D. Mar 22, 2017 15:00
[2017-03-22] MEDS: Vancomycin 750mg/NS 250ml 250 ML IVPB SCH (16:30)
--- NOTE | 2017-03-22 22:09 | General Progress Note ---
Assessment/Plan Status: stable Assessment/Plan 1. Leukocytosis, secondary to underlying sepsis. Continue monitoring. --> Has been resolved --> WBC 8.0 2. Anemia secondary to chronic disease.. --> transfuse if hgb is less than 8 or symptomatic --> monitor counts --> has been stable >8 --> occult blood negative and hiv panel negative 4. Coagulopathy, potentially secondary to underlying sepsis as well. --> PTT and prothrombin time now WNL --> continue to monitor 5. Methicillin-resistant Staphylococcus aureus colonization. 6. Respiratory failure, status post intubation. 7. Acute kidney injury. --> nephrology following Subjective Date patient seen: Mar 22, 2017 Time patient seen: 06:00 Hematologic/Lymphatic: Reports: anemia Allergies: Coded Allergies: LORAZEPAM (Unverified Allergy, Unknown, 03/02/17) METOCLOPRAMIDE (Unverified Allergy, Unknown, 03/02/17) QUETIAPINE (Unverified Allergy, Unknown, 03/02/17) ZOLPIDEM (Unverified Allergy, Unknown, 03/02/17) Subjective Patient intubated. Comfortable. No complaints of pain. Afebrile. Stable. No acute distress. Objective Last 24 Hour Vital Signs Date Time Temp Pulse Resp B/P (MAP) Pulse Ox O2 Delivery O2 Flow Rate FiO2 03/22/17 21:03 64 18 30 03/22/17 21:00 60 20 135/47 100 Mechanical Ventilator 30 03/22/17 20:00 30 03/22/17 20:00 98.4 62 18 118/36 100 Mechanical Ventilator 03/22/17 19:42 65 03/22/17 19:03 67 18 30 03/22/17 19:00 68 20 139/46 100 Mechanical Ventilator 30 03/22/17 18:00 60 17 133/43 100 Mechanical Ventilator 30 03/22/17 17:19 53 23 30 03/22/17 17:00 77 33 153/54 100 Mechanical Ventilator 03/22/17 16:00 62 03/22/17 16:00 99.0 62 18 122/34 100 Mechanical Ventilator 30 03/22/17 15:14 61 17 30 03/22/17 15:00 66 18 119/33 100 Mechanical Ventilator 30 03/22/17 14:00 78 19 120/50 99 Mechanical Ventilator 30 03/22/17 13:00 66 26 131/41 99 Mechanical Ventilator 30 03/22/17 12:47 68 24 30 03/22/17 12:45 30 03/22/17 12:00 98.3 60 30 134/40 100 Mechanical Ventilator 30 03/22/17 12:00 60 03/22/17 12:00 62 03/22/17 11:00 61 22 129/38 100 Mechanical Ventilator 30 03/22/17 10:54 67 24 30 03/22/17 10:00 68 14 128/42 100 Mechanical Ventilator 30 03/22/17 09:57 30 03/22/17 09:43 100 03/22/17 09:16 64 20 30 03/22/17 09:00 67 20 117/33 100 Mechanical Ventilator 30 03/22/17 08:00 30 03/22/17 08:00 98.4 59 21 129/45 99 Mechanical Ventilator 30 03/22/17 08:00 59 03/22/17 07:21 105/32 03/22/17 07:18 76 25 30 03/22/17 07:00 73 23 105/32 98 Mechanical Ventilator 30 03/22/17 06:00 55 21 115/34 98 Mechanical Ventilator 30 03/22/17 05:20 50 18 30 03/22/17 05:00 51 24 111/34 98 Mechanical Ventilator 30 03/22/17 04:00 30 03/22/17 04:00 98.7 62 24 129/45 100 Mechanical Ventilator 30 03/22/17 04:00 62 03/22/17 03:00 59 19 127/33 100 Mechanical Ventilator 30 03/22/17 02:56 60 18 30 03/22/17 02:00 59 18 121/57 100 Mechanical Ventilator 30 03/22/17 01:27 60 18 30 03/22/17 01:00 60 18 137/42 100 Mechanical Ventilator 30 03/22/17 00:00 30 03/22/17 00:00 68 03/22/17 00:00 98.4 64 20 154/51 100 Mechanical Ventilator 30 03/21/17 23:23 60 18 30 03/21/17 23:00 59 18 121/44 100 Mechanical Ventilator 30 Intake and Output 03/22/17 03/23/17 19:00 07:00 Intake Total 1090 ml 90 ml Output Total 340 ml 55 ml Balance 750 ml 35 ml Free Water 300 ml IV Total 250 ml Tube Feeding 540 ml 90 ml Output Urine Total 340 ml 55 ml # Bowel Movements 1 Laboratory Tests 03/22/17 05:00: White Blood Count 8.1, Red Blood Count 2.59L, Hemoglobin 8.8L, Hematocrit 26.4L , Mean Corpuscular Volume 102H, Mean Corpuscular Hemoglobin 34.1H, Mean Corpuscular Hemoglobin Concent 33.6, Red Cell Distribution Width 14.7, Platelet Count 294, Mean Platelet Volume 8.0, Neutrophils (%) (Auto) 75.4H, Lymphocytes ( %) (Auto) 13.0L, Monocytes (%) (Auto) 7.4, Eosinophils (%) (Auto) 3.0, Basophils (%) (Auto) 1.1, Prothrombin Time 9.7, Prothromb Time International Ratio 0.9, Activated Partial Thromboplast Time 24, Sodium Level 137, Potassium Level 3.9, Chloride Level 101, Carbon Dioxide Level 25, Anion Gap 11, Blood Urea Nitrogen 29H, Creatinine 0.7, Estimat Glomerular Filtration Rate , Glucose Level 183H, Calcium Level 9.0, Phosphorus Level 3.0, Magnesium Level 2.0, Total Bilirubin < 0.2, Aspartate Amino Transf (AST/SGOT) 27, Alanine Aminotransferase (ALT/SGPT) 13, Alkaline Phosphatase 100, Total Protein 5.5L, Albumin 2.1L, Globulin 3.4, Albumin/Globulin Ratio 0.6L 03/22/17 09:17: Arterial Blood pH 7.460H, Arterial Blood Partial Pressure CO2 39.4, Arterial Blood Partial Pressure O2 94.2, Arterial Blood HCO3 27.4H, Arterial Blood Oxygen Saturation 96.4, Arterial Blood Base Excess 3.4, Shaun Test Positive Height (Feet): 5 Height (Inches): 2.00 Weight (Pounds): 129 General Appearance: no apparent distress REBEKAH ARRIETA Mar 22, 2017 22:09
[2017-03-23] VITALS (24 sets, daily range): BP systolic 117–169; BP diastolic 34–64
[2017-03-23] MEDS: NovoLOG Insulin Flexpen SUBQ SCH ×5 (03:45→20:23)
--- NOTE | 2017-03-23 07:41 | Pulmonolgy Critical Care Note ---
Critical Care - Asmt/Plan Problems: (1) Respiratory failure requiring intubation (2) Pneumonia (3) Anemia (4) Advanced dementia (5) Feeding by G-tube (6) Severe sepsis Respiratory: monitor respiratory rate, CXR, other - trach on saturday Cardiac: continue to monitor HR/BP Renal: F/U I&O, keep IV fluid Infectious Disease: check cultures, continue antibiotics Gastrointestinal: hold feedings Endocrine: check TSH Hematologic: monitor H/H Neurologic: PRN Morphine Affect: PRN ativan Prophylaxis: Heparin Time Spent (Minutes): 40 Critical Care - Objective Last 24 Hour Vital Signs Date Time Temp Pulse Resp B/P (MAP) Pulse Ox O2 Delivery O2 Flow Rate FiO2 03/23/17 07:02 51 18 30 03/23/17 07:00 70 21 128/56 100 Mechanical Ventilator 03/23/17 06:00 56 20 122/37 100 Mechanical Ventilator 03/23/17 05:03 53 18 30 03/23/17 05:00 50 18 117/34 100 Mechanical Ventilator 03/23/17 04:02 60 03/23/17 04:00 98.3 60 21 138/42 100 Mechanical Ventilator 03/23/17 04:00 30 03/23/17 03:02 70 19 30 03/23/17 03:00 69 25 157/52 100 Mechanical Ventilator 03/23/17 02:00 65 18 138/64 100 Mechanical Ventilator 03/23/17 01:02 54 18 30 03/23/17 01:00 69 18 120/47 100 Mechanical Ventilator 03/23/17 00:03 54 03/23/17 00:00 98.4 55 18 134/42 100 Mechanical Ventilator 03/22/17 23:10 59 18 30 03/22/17 23:00 69 20 130/40 100 Mechanical Ventilator 03/22/17 22:00 64 20 142/52 100 Mechanical Ventilator 03/22/17 21:03 64 18 30 03/22/17 21:00 60 20 135/47 100 Mechanical Ventilator 03/22/17 20:00 30 03/22/17 20:00 98.4 62 18 118/36 100 Mechanical Ventilator 03/22/17 19:42 65 03/22/17 19:03 67 18 30 03/22/17 19:00 68 20 139/46 100 Mechanical Ventilator 30 03/22/17 18:00 60 17 133/43 100 Mechanical Ventilator 30 03/22/17 17:19 53 23 30 03/22/17 17:00 77 33 153/54 100 Mechanical Ventilator 30 03/22/17 16:00 62 03/22/17 16:00 99.0 62 18 122/34 100 Mechanical Ventilator 30 03/22/17 15:14 61 17 30 03/22/17 15:00 66 18 119/33 100 Mechanical Ventilator 30 03/22/17 14:00 78 19 120/50 99 Mechanical Ventilator 30 03/22/17 13:00 66 26 131/41 99 Mechanical Ventilator 30 03/22/17 12:47 68 24 30 03/22/17 12:45 30 03/22/17 12:00 98.3 60 30 134/40 100 Mechanical Ventilator 30 03/22/17 12:00 60 03/22/17 12:00 62 03/22/17 11:00 61 22 129/38 100 Mechanical Ventilator 30 03/22/17 10:54 67 24 30 03/22/17 10:00 68 14 128/42 100 Mechanical Ventilator 30 03/22/17 09:57 30 03/22/17 09:43 100 03/22/17 09:16 64 20 30 03/22/17 09:00 67 20 117/33 100 Mechanical Ventilator 30 03/22/17 08:00 30 03/22/17 08:00 98.4 59 21 129/45 99 Mechanical Ventilator 30 03/22/17 08:00 59 Status: awake Condition: critical HEENT: atraumatic Neck: full ROM Lungs: chest wall tender Heart: HR/BP stable, HR/BP unstable, regular Abdomen: soft, active bowel sounds, feeding tube Extremities: no C/C/E, edema Decubiti: location Accucheck: 176 Critical Care - Subjective ROS Limited/Unobtainable: Yes Condition: critical EKG Rhythm: Sinus Rhythm FI02: 30 Vent Support Breath Rate: 18 Vent Support Mode: AC Vent Tidal Volume: 500 Sputum Amount: Small PEEP: 5.0 PIP: 31 Tube Feeding Amount: 45 CXR: no changes ET-Tube: 7.0 ET Position: 21 Labs: Laboratory Tests Test 03/22/17 09:17 Arterial Blood pH 7.460 (7.350-7.450) Arterial Blood Partial Pressure CO2 39.4 mmHg (35.0-45.0) Arterial Blood Partial Pressure O2 94.2 mmHg (75.0-100.0) Arterial Blood HCO3 27.4 mmol/L (22.0-26.0) H Arterial Blood Oxygen Saturation 96.4 % (92.0-98.0) Arterial Blood Base Excess 3.4 Shaun Test Positive ZAIRA ROSALES Mar 23, 2017 07:41
[2017-03-23] MEDS: Famotidine 20 MG/ 2ML VIAL IVP SCH (08:04)
[2017-03-23] MEDS: Levemir Flexpen SUBQ SCH (08:07)
[2017-03-23] MEDS: Heparin 5000 units/ml inj SUBQ SCH ×2 (08:08→21:06)
--- NOTE | 2017-03-23 09:14 | General Progress Note ---
Assessment/Plan Status: stable Assessment/Plan Respiratory failure requiring intubation Severe sepsis secondary to pneumonia, resolving UTI Acute cystitis without hematuria Pneumonia, non cavitary, w/o effusion Dementia Acute renal failure , Dehydration Hypoxemic respiratory failure Type 2 diabetes mellitus with hyperglycemia Proteinuria Plan: No labs today Pulm support- Monitor renal parameters Urine studies- Avoid Nephrotoxics- Per Orders Subjective ROS Limited/Unobtainable: Yes Allergies: Coded Allergies: LORAZEPAM (Unverified Allergy, Unknown, 03/02/17) METOCLOPRAMIDE (Unverified Allergy, Unknown, 03/02/17) QUETIAPINE (Unverified Allergy, Unknown, 03/02/17) ZOLPIDEM (Unverified Allergy, Unknown, 03/02/17) Objective Last 24 Hour Vital Signs Date Time Temp Pulse Resp B/P (MAP) Pulse Ox O2 Delivery O2 Flow Rate FiO2 03/23/17 08:55 100 03/23/17 08:51 51 18 30 03/23/17 08:00 98.3 53 18 122/42 100 Mechanical Ventilator 03/23/17 08:00 59 03/23/17 08:00 30 03/23/17 07:02 51 18 30 03/23/17 07:00 70 21 128/56 100 Mechanical Ventilator 03/23/17 06:00 56 20 122/37 100 Mechanical Ventilator 03/23/17 05:03 53 18 30 03/23/17 05:00 50 18 117/34 100 Mechanical Ventilator 03/23/17 04:02 60 03/23/17 04:00 98.3 60 21 138/42 100 Mechanical Ventilator 03/23/17 04:00 30 03/23/17 03:02 70 19 30 03/23/17 03:00 69 25 157/52 100 Mechanical Ventilator 03/23/17 02:00 65 18 138/64 100 Mechanical Ventilator 03/23/17 01:02 54 18 30 03/23/17 01:00 69 18 120/47 100 Mechanical Ventilator 03/23/17 00:03 54 03/23/17 00:00 98.4 55 18 134/42 100 Mechanical Ventilator 03/22/17 23:10 59 18 30 03/22/17 23:00 69 20 130/40 100 Mechanical Ventilator 03/22/17 22:00 64 20 142/52 100 Mechanical Ventilator 03/22/17 21:03 64 18 30 03/22/17 21:00 60 20 135/47 100 Mechanical Ventilator 30 03/22/17 20:00 30 03/22/17 20:00 98.4 62 18 118/36 100 Mechanical Ventilator 30 03/22/17 19:42 65 03/22/17 19:03 67 18 30 03/22/17 19:00 68 20 139/46 100 Mechanical Ventilator 30 03/22/17 18:00 60 17 133/43 100 Mechanical Ventilator 30 03/22/17 17:19 53 23 30 03/22/17 17:00 77 33 153/54 100 Mechanical Ventilator 30 03/22/17 16:00 62 03/22/17 16:00 99.0 62 18 122/34 100 Mechanical Ventilator 30 03/22/17 15:14 61 17 30 03/22/17 15:00 66 18 119/33 100 Mechanical Ventilator 30 03/22/17 14:00 78 19 120/50 99 Mechanical Ventilator 30 03/22/17 13:00 66 26 131/41 99 Mechanical Ventilator 30 03/22/17 12:47 68 24 30 03/22/17 12:45 30 03/22/17 12:00 98.3 60 30 134/40 100 Mechanical Ventilator 30 03/22/17 12:00 60 03/22/17 12:00 62 03/22/17 11:00 61 22 129/38 100 Mechanical Ventilator 30 03/22/17 10:54 67 24 30 03/22/17 10:00 68 14 128/42 100 Mechanical Ventilator 30 03/22/17 09:57 30 03/22/17 09:43 100 03/22/17 09:16 64 20 30 Intake and Output 03/23/17 03/24/17 19:00 07:00 Intake Total 95 ml Output Total 50 ml Balance 45 ml Free Water 50 ml Tube Feeding 45 ml Output Urine Total 50 ml Laboratory Tests 03/22/17 09:17: Arterial Blood pH 7.460H, Arterial Blood Partial Pressure CO2 39.4, Arterial Blood Partial Pressure O2 94.2, Arterial Blood HCO3 27.4H, Arterial Blood Oxygen Saturation 96.4, Arterial Blood Base Excess 3.4, Shaun Test Positive Height (Feet): 5 Height (Inches): 2.00 Weight (Pounds): 132 General Appearance: no apparent distress Objective PE not changed IRWIN DAMON 2, 2017 09:14
[2017-03-23] MEDS ORDERED: Sterile Water Irrig 1000ml IRRIG ONE (09:18)
[2017-03-23] MEDS ORDERED: NS 275ml ONE (09:18)
--- NOTE | 2017-03-23 12:00 | General Progress Note ---
Progress Note Progress Note Surgery: called to evaluate for trach. chart reviewed. spoke with medical teams and family. planned trach this saturday at 0830AM Ranjan Troy Mar 23, 2017 12:00
--- NOTE | 2017-03-23 14:34 | Infectious Diseases Prog Note ---
Assessment/Plan Assessment/Plan IMPRESSION: 1. Severe sepsis with multiorgan failure, improving, secondary to pneumonia, non cavitary, w/o effusion s/p recent admission for hypoxemic resp failure and pneumonia, treated with D#7 IV vanc/cefepime completed on [id number] 8/22 ucx neg 03/12 blood cx negative for MRSA/MSSA 2. Bibasilar staph aureus pneumonia 3. Acute respiratory failure. 4. Acute renal failure, prerenal, sp 5. Diabetes type 2 with hyperglycemia and proteinuria 6. Dementia. 7. Methicillin resistant Staphylococcus aureus colonization. 8. lactic acidosis, resolved 9. CoNS bacteremia vs contamination (03/12), s/p >7D IV vanc. consider treated. 10. mild R>L Tinea cruris on clotrimazole. 11. Cystitis, sterile, c/b microscopic hematuria. Plan: --continue IV vancomycin D# 11 of 14 (03/15 s/p IV meropenem D#4) --monitor blood cx --monitor CBC --monitor temp curve --s/p surg consult, pending trach -- off of pressors -- continue clotrimazole to inguinal creases Subjective ROS Limited/Unobtainable: Yes Allergies: Coded Allergies: LORAZEPAM (Unverified Allergy, Unknown, 03/02/17) METOCLOPRAMIDE (Unverified Allergy, Unknown, 03/02/17) QUETIAPINE (Unverified Allergy, Unknown, 03/02/17) ZOLPIDEM (Unverified Allergy, Unknown, 03/02/17) Subjective afebrile. leukocytosis of 22 on admission resolved as of hospital d#4. Objective Vital Signs Last 24 Hour Vital Signs Date Time Temp Pulse Resp B/P (MAP) Pulse Ox O2 Delivery O2 Flow Rate FiO2 03/23/17 13:00 56 18 169/53 100 Mechanical Ventilator 30 03/23/17 12:57 55 18 30 03/23/17 12:00 57 03/23/17 12:00 30 03/23/17 12:00 98.4 60 21 128/39 100 Mechanical Ventilator 30 03/23/17 11:15 57 14 30 03/23/17 11:00 56 16 126/44 100 Mechanical Ventilator 30 03/23/17 10:00 68 18 122/35 100 Mechanical Ventilator 30 03/23/17 09:00 62 17 144/40 100 Mechanical Ventilator 30 03/23/17 08:55 100 03/23/17 08:51 51 18 30 03/23/17 08:00 98.3 53 18 122/42 100 Mechanical Ventilator 30 03/23/17 08:00 59 03/23/17 08:00 30 03/23/17 07:02 51 18 30 03/23/17 07:00 70 21 128/56 100 Mechanical Ventilator 30 03/23/17 06:00 56 20 122/37 100 Mechanical Ventilator 30 03/23/17 05:03 53 18 30 03/23/17 05:00 50 18 117/34 100 Mechanical Ventilator 30 03/23/17 04:02 60 03/23/17 04:00 98.3 60 21 138/42 100 Mechanical Ventilator 30 03/23/17 04:00 30 03/23/17 03:02 70 19 30 03/23/17 03:00 69 25 157/52 100 Mechanical Ventilator 30 03/23/17 02:00 65 18 138/64 100 Mechanical Ventilator 30 03/23/17 01:02 54 18 30 03/23/17 01:00 69 18 120/47 100 Mechanical Ventilator 30 03/23/17 00:03 54 03/23/17 00:00 98.4 55 18 134/42 100 Mechanical Ventilator 03/22/17 23:10 59 18 30 03/22/17 23:00 69 20 130/40 100 Mechanical Ventilator 30 03/22/17 22:00 64 20 142/52 100 Mechanical Ventilator 30 03/22/17 21:03 64 18 30 03/22/17 21:00 60 20 135/47 100 Mechanical Ventilator 30 03/22/17 20:00 30 03/22/17 20:00 98.4 62 18 118/36 100 Mechanical Ventilator 30 03/22/17 19:42 65 03/22/17 19:03 67 18 30 03/22/17 19:00 68 20 139/46 100 Mechanical Ventilator 30 03/22/17 18:00 60 17 133/43 100 Mechanical Ventilator 30 03/22/17 17:19 53 23 30 03/22/17 17:00 77 33 153/54 100 Mechanical Ventilator 30 03/22/17 16:00 62 03/22/17 16:00 99.0 62 18 122/34 100 Mechanical Ventilator 30 03/22/17 15:14 61 17 30 03/22/17 15:00 66 18 119/33 100 Mechanical Ventilator 30 Height (Feet): 5 Height (Inches): 2.00 Weight (Pounds): 132 Objective gen: intubated, not currently sedated, opens eyes. heent: oral mucosa dry, sclera anicteric cv: rrr lungs: coarse rhonchi abd: G tube in place, soft, nttp ext: trace ble. s/p prior R femoral TLC CVC site well healed. bue contractures , mild. gu: wayne in place draining clear yellow urine. skin: R>L inguinal tinea cruris, no petechiae. Current Medications Medications (Trade) Dose Ordered Sig/Ramiro Route PRN Reason Start Time Stop Time Status Last Admin Dose Admin Acetaminophen (Tylenol) 650 mg Q4H PRN ORAL fever>100.5 03/12/17 07:30 04/11/17 07:29 Artificial Tears (Akwa-Tears) 2 drop Q2H PRN BOTH EYES Dry Eyes 03/15/17 16:30 04/14/17 16:29 03/22/17 11:43 Clotrimazole (Lotrimin) 1 applic EVERY 12 HOURS TOPIC 03/20/17 21:00 04/19/17 20:59 03/23/17 08:05 Dextrose (Dextrose 50%) STAT PRN IV Hypoglycemia 03/12/17 10:00 04/11/17 09:59 Famotidine (Pepcid I.v.) 20 mg DAILY IVP 03/13/17 10:00 04/12/17 09:59 03/23/17 08:04 Heparin Sodium (Porcine) (Heparin 5000 units/ml) 5,000 units EVERY 12 HOURS SUBQ 03/12/17 09:00 04/11/17 08:59 03/23/17 08:08 Insulin Aspart (NovoLOG) Q4H SUBQ 03/12/17 12:00 04/11/17 11:59 03/23/17 08:07 Insulin Detemir (Levemir) 5 units DAILY SUBQ 03/15/17 14:00 04/14/17 13:59 03/23/17 08:07 Norepinephrine Bitartrate 4 mg/ Dextrose 254 ml @ 0 mls/hr Q24H IV 03/12/17 07:30 04/11/17 07:29 Ondansetron HCl (Zofran) 4 mg Q6H PRN IVP Nausea & Vomiting 03/12/17 07:30 04/11/17 07:29 Polyethylene Glycol (Miralax) 17 gm DAILYPRN PRN ORAL Constipation 03/12/17 07:30 04/11/17 07:29 Vancomycin HCl (Vanco rx to dose) 1 ea DAILY PRN MISC PER RX PROTOCOL 03/13/17 11:30 04/12/17 11:29 Vancomycin/Sodium Chloride 250 ml @ 166.667 mls/hr Q24H IVPB 03/16/17 17:00 03/25/17 23:59 03/22/17 16:30 Paul Amaya M.D. Mar 23, 2017 14:34
[2017-03-23] MEDS: Vancomycin 750mg/NS 250ml 250 ML IVPB SCH (16:13)
--- NOTE | 2017-03-23 21:27 | General Progress Note ---
Assessment/Plan Status: unchanged Assessment/Plan 1. Leukocytosis, secondary to underlying sepsis. Continue monitoring. --> Has been resolved --> WBC 8.0 2. Anemia secondary to chronic disease.. --> transfuse if hgb is less than 8 or symptomatic --> monitor counts --> has been stable >8 --> occult blood negative and hiv panel negative 4. Coagulopathy, potentially secondary to underlying sepsis as well. --> PTT and prothrombin time now WNL --> continue to monitor 5. Methicillin-resistant Staphylococcus aureus colonization. 6. Respiratory failure, status post intubation. 7. Acute kidney injury. --> nephrology following Subjective Date patient seen: Mar 23, 2017 Time patient seen: 06:00 Constitutional: Denies: no symptoms, chills, diaphoresis, fever, malaise, weakness, other HEENT: Denies: no symptoms, eye pain, blurred vision, tearing, double vision, ear pain, ear discharge, nose pain, nose congestion, throat pain, throat swelling, mouth pain, mouth swelling, other Cardiovascular: Denies: no symptoms, chest pain, edema, irregular heart rate, lightheadedness, palpitations, syncope, other Respiratory: Denies: no symptoms, cough, orthopnea, shortness of breath, SOB with excertion, SOB at rest, sputum, stridor, wheezing, other Gastrointestinal/Abdominal: Denies: no symptoms, abdomen distended, abdominal pain, black stools, tarry stools, blood in stool, constipated, diarrhea, difficulty swallowing, nausea, poor appetite, poor fluid intake, rectal bleeding , vomiting, other Genitourinary: Denies: no symptoms, burning, discharge, frequency, flank pain, hematuria, incontinence, pain, urgency, other Neurologic/Psychiatric: Denies: no symptoms, anxiety, depressed, emotional problems, headache, numbness, paresthesia, pre-existing deficit, seizure, tingling, tremors, weakness, other Hematologic/Lymphatic: Reports: anemia Allergies: Coded Allergies: LORAZEPAM (Unverified Allergy, Unknown, 03/02/17) METOCLOPRAMIDE (Unverified Allergy, Unknown, 03/02/17) QUETIAPINE (Unverified Allergy, Unknown, 03/02/17) ZOLPIDEM (Unverified Allergy, Unknown, 03/02/17) Subjective Patient intubated. No acute bleeding. Stable. Sleeping. Objective Last 24 Hour Vital Signs Date Time Temp Pulse Resp B/P (MAP) Pulse Ox O2 Delivery O2 Flow Rate FiO2 03/23/17 20:00 70 03/23/17 20:00 98.0 70 18 125/60 100 Mechanical Ventilator 30 03/23/17 20:00 30 03/23/17 19:25 50 18 30 03/23/17 19:00 52 18 130/37 100 Mechanical Ventilator 30 03/23/17 18:00 54 18 133/38 99 Mechanical Ventilator 30 03/23/17 17:00 69 18 160/50 100 Mechanical Ventilator 30 03/23/17 16:42 72 21 30 03/23/17 16:00 98.3 61 16 145/47 100 Mechanical Ventilator 30 03/23/17 16:00 30 03/23/17 16:00 60 03/23/17 15:18 66 18 30 03/23/17 15:00 61 18 141/50 100 Mechanical Ventilator 30 03/23/17 14:00 52 18 144/58 100 Mechanical Ventilator 30 03/23/17 13:00 56 18 169/53 100 Mechanical Ventilator 30 03/23/17 12:57 55 18 30 03/23/17 12:00 57 03/23/17 12:00 30 03/23/17 12:00 98.4 60 21 128/39 100 Mechanical Ventilator 30 03/23/17 11:15 57 14 30 03/23/17 11:00 56 16 126/44 100 Mechanical Ventilator 30 03/23/17 10:00 68 18 122/35 100 Mechanical Ventilator 30 03/23/17 09:00 62 17 144/40 100 Mechanical Ventilator 30 03/23/17 08:55 100 03/23/17 08:51 51 18 30 03/23/17 08:00 98.3 53 18 122/42 100 Mechanical Ventilator 03/23/17 08:00 59 03/23/17 08:00 30 03/23/17 07:02 51 18 30 03/23/17 07:00 70 21 128/56 100 Mechanical Ventilator 30 03/23/17 06:00 56 20 122/37 100 Mechanical Ventilator 30 03/23/17 05:03 53 18 30 03/23/17 05:00 50 18 117/34 100 Mechanical Ventilator 30 03/23/17 04:02 60 03/23/17 04:00 98.3 60 21 138/42 100 Mechanical Ventilator 30 03/23/17 04:00 30 03/23/17 03:02 70 19 30 03/23/17 03:00 69 25 157/52 100 Mechanical Ventilator 30 03/23/17 02:00 65 18 138/64 100 Mechanical Ventilator 30 03/23/17 01:02 54 18 30 03/23/17 01:00 69 18 120/47 100 Mechanical Ventilator 30 03/23/17 00:03 54 03/23/17 00:00 98.4 55 18 134/42 100 Mechanical Ventilator 30 03/22/17 23:10 59 18 30 03/22/17 23:00 69 20 130/40 100 Mechanical Ventilator 30 03/22/17 22:00 64 20 142/52 100 Mechanical Ventilator 30 Intake and Output 03/23/17 03/24/17 19:00 07:00 Intake Total 756.667 ml 45 ml Output Total 500 ml 30 ml Balance 256.667 ml 15 ml Free Water 50 ml IV Total 166.667 ml Tube Feeding 540 ml 45 ml Output Urine Total 500 ml 30 ml # Bowel Movements 1 1 Labs Test 03/21/17 03:45 03/21/17 09:06 03/21/17 16:15 03/22/17 05:00 White Blood Count 6.7 K/UL (4.8-10.8) 8.1 K/UL (4.8-10.8) Red Blood Count 2.58 M/UL (4.20-5.40) 2.59 M/UL (4.20-5.40) Hemoglobin 9.1 G/DL (12.0-16.0) 8.8 G/DL (12.0-16.0) Hematocrit 26.4 % (37.0-47.0) 26.4 % (37.0-47.0) Mean Corpuscular Volume 102 FL (80-99) 102 FL (80-99) Mean Corpuscular Hemoglobin 35.2 PG (27.0-31.0) 34.1 PG (27.0-31.0) Mean Corpuscular Hemoglobin Concent 34.4 G/DL (32.0-36.0) 33.6 G/DL (32.0-36.0) Red Cell Distribution Width 15.5 % (11.6-14.8) 14.7 % (11.6-14.8) Platelet Count 271 K/UL (150-450) 294 K/UL (150-450) Mean Platelet Volume 9.1 FL (6.5-10.1) 8.0 FL (6.5-10.1) Neutrophils (%) (Auto) 69.8 % (45.0-75.0) 75.4 % (45.0-75.0) Lymphocytes (%) (Auto) 14.8 % (20.0-45.0) 13.0 % (20.0-45.0) Monocytes (%) (Auto) 10.9 % (1.0-10.0) 7.4 % (1.0-10.0) Eosinophils (%) (Auto) 3.3 % (0.0-3.0) 3.0 % (0.0-3.0) Basophils (%) (Auto) 1.3 % (0.0-2.0) 1.1 % (0.0-2.0) Sodium Level 140 mEQ/L (135-145) 137 mEQ/L (135-145) Potassium Level 4.0 mEQ/L (3.4-4.9) 3.9 mEQ/L (3.4-4.9) Chloride Level 105 mEQ/L (98-107) 101 mEQ/L (98-107) Carbon Dioxide Level 25 mEQ/L (20-30) 25 mEQ/L (20-30) Anion Gap 10 (5-15) 11 (5-15) Blood Urea Nitrogen 27 mg/dL (7-23) 29 mg/dL (7-23) Creatinine 0.6 mg/dL (0.5-0.9) 0.7 mg/dL (0.5-0.9) Estimat Glomerular Filtration Rate mL/min (>60) mL/min (>60) Glucose Level 176 mg/dL (74-106) 183 mg/dL (74-106) Calcium Level 9.0 mg/dL (8.6-10.2) 9.0 mg/dL (8.6-10.2) Phosphorus Level 3.1 mg/dL (2.5-4.8) 3.0 mg/dL (2.5-4.8) Magnesium Level 1.9 mg/dL (1.7-2.5) 2.0 mg/dL (1.7-2.5) Total Bilirubin 0.3 mg/dL (0.0-1.2) < 0.2 mg/dL (0.0-1.2) Aspartate Amino Transf (AST/SGOT) 28 U/L (5-40) 27 U/L (5-40) Alanine Aminotransferase (ALT/SGPT) 13 U/L (3-33) 13 U/L (3-33) Alkaline Phosphatase 106 U/L (35-104) 100 U/L (35-104) Total Protein 5.4 g/dL (6.6-8.7) 5.5 g/dL (6.6-8.7) Albumin 2.1 g/dL (3.5-5.2) 2.1 g/dL (3.5-5.2) Globulin 3.3 g/dL 3.4 g/dL Albumin/Globulin Ratio 0.6 (1.0-2.7) 0.6 (1.0-2.7) Arterial Blood pH 7.440 (7.350-7.450) Arterial Blood Partial Pressure CO2 39.9 mmHg (35.0-45.0) Arterial Blood Partial Pressure O2 86.4 mmHg (75.0-100.0) Arterial Blood HCO3 26.8 mmol/L (22.0-26.0) Arterial Blood Oxygen Saturation 95.5 % (92.0-98.0) Arterial Blood Base Excess 2.6 Shaun Test Positive Vancomycin Level Trough 17.7 ug/mL (5.0-12.0) Prothrombin Time 9.7 SEC (9.30-11.50) Prothromb Time International Ratio 0.9 (0.9-1.1) Activated Partial Thromboplast Time 24 SEC (23-33) Test 03/22/17 09:17 Arterial Blood pH 7.460 (7.350-7.450) Arterial Blood Partial Pressure CO2 39.4 mmHg (35.0-45.0) Arterial Blood Partial Pressure O2 94.2 mmHg (75.0-100.0) Arterial Blood HCO3 27.4 mmol/L (22.0-26.0) Arterial Blood Oxygen Saturation 96.4 % (92.0-98.0) Arterial Blood Base Excess 3.4 Shaun Test Positive Height (Feet): 5 Height (Inches): 2.00 Weight (Pounds): 132 General Appearance: no apparent distress Cardiovascular: normal peripheral pulses, regular rhythm Respiratory/Chest: decreased breath sounds Abdomen: normal bowel sounds, non tender REBEKAH ARRIETA Mar 23, 2017 21:26
[2017-03-24] VITALS (24 sets, daily range): BP systolic 107–176; BP diastolic 30–79
[2017-03-24] MEDS: NovoLOG Insulin Flexpen SUBQ SCH ×6 (00:16→19:41)
[2017-03-24 05:14] LABS: BASOPHILS % (AUTO) 1.1 % (0.0-2.0); EOSINOPHILS % (AUTO) 3.5 % (0.0-3.0); LYMPHOCYTES % (AUTO) 13.3 % (20.0-45.0); MEAN CORPUSCULAR HEMOGLOBIN 35.4 PG (27.0-31.0); MEAN CORPUSCULAR HGB CONC 34.7 G/DL (32.0-36.0); MEAN CORPUSCULAR VOLUME 102 FL (80-99); MONOCYTES % (AUTO) 7.2 % (1.0-10.0); NEUTROPHILS % (AUTO) 74.9 % (45.0-75.0); PLATELET COUNT 270 K/UL (150-450); RED BLOOD COUNT 2.86 M/UL (4.20-5.40); RED CELL DISTRIBUTION WIDTH 14.5 % (11.6-14.8); WHITE BLOOD COUNT 8.7 K/UL (4.8-10.8)
[2017-03-24 05:33] LABS: INR 0.9 (0.9-1.1); PROTHROMBIN TIME 9.8 SEC (9.30-11.50)
[2017-03-24 05:36] LABS: ALANINE AMINOTRANSFERASE 13 U/L (3-33); ALBUMIN/GLOBULIN RATIO 0.6 (1.0-2.7); ANION GAP 11 (5-15); ASPARTATE AMINO TRANSFERASE 27 U/L (5-40); CALCIUM 9.4 mg/dL (8.6-10.2); CARBON DIOXIDE 26 mEQ/L (20-30); CHLORIDE 99 mEQ/L (98-107); CREATININE 0.6 mg/dL (0.5-0.9); HEMOLYSIS 6; MAGNESIUM 1.8 mg/dL (1.7-2.5); PHOSPHORUS 3.5 mg/dL (2.5-4.8); POTASSIUM 4.3 mEQ/L (3.4-4.9); SODIUM 136 mEQ/L (135-145); TOTAL PROTEIN 6.1 g/dL (6.6-8.7)
[2017-03-24] MEDS: Heparin 5000 units/ml inj SUBQ SCH ×2 (08:11→20:46)
[2017-03-24] MEDS: Famotidine 20 MG/ 2ML VIAL IVP SCH (08:12)
[2017-03-24] MEDS: Levemir Flexpen SUBQ SCH (09:02)
--- NOTE | 2017-03-24 10:56 | Pulmonolgy Critical Care Note ---
Critical Care - Asmt/Plan Problems: (1) Respiratory failure requiring intubation (2) Pneumonia (3) Anemia (4) Advanced dementia (5) Feeding by G-tube (6) Severe sepsis Respiratory: monitor respiratory rate, adjust FIO2, CXR Cardiac: continue to monitor HR/BP Renal: F/U I&O, keep IV fluid, increase IV fluid, check electrolytes Infectious Disease: check cultures, continue antibiotics Gastrointestinal: continue feedings/current rate Endocrine: check HgA1C Neurologic: PRN Ativan, PRN Morphine Affect: PRN ativan Prophylaxis: Heparin Time Spent (Minutes): 30 Notes Reviewed: cardio Discussed with: nurses, consultants, case sealermanager therapy - Objective Last 24 Hour Vital Signs Date Time Temp Pulse Resp B/P (MAP) Pulse Ox O2 Delivery O2 Flow Rate FiO2 03/24/17 10:00 59 18 114/45 100 Mechanical Ventilator 30 03/24/17 09:00 52 18 123/35 100 Mechanical Ventilator 30 03/24/17 08:54 57 18 30 03/24/17 08:00 98.5 55 20 117/58 100 Mechanical Ventilator 30 03/24/17 08:00 30 03/24/17 08:00 56 03/24/17 07:30 129/40 03/24/17 07:12 49 18 30 03/24/17 07:00 49 23 129/40 100 Mechanical Ventilator 30 03/24/17 06:00 50 24 128/36 100 Mechanical Ventilator 30 03/24/17 05:11 58 18 30 03/24/17 05:00 66 24 137/39 100 Mechanical Ventilator 30 03/24/17 04:00 51 03/24/17 04:00 30 03/24/17 04:00 98.4 56 22 134/30 100 Mechanical Ventilator 30 03/24/17 03:25 55 18 30 03/24/17 03:00 56 24 124/79 99 Mechanical Ventilator 30 03/24/17 02:00 63 23 176/41 100 Mechanical Ventilator 30 03/24/17 01:29 71 20 30 03/24/17 01:00 56 22 154/52 99 Mechanical Ventilator 30 03/24/17 00:00 98.4 55 18 141/59 100 Mechanical Ventilator 30 03/23/17 23:00 49 18 138/41 100 Mechanical Ventilator 30 03/23/17 22:35 51 18 30 03/23/17 22:00 52 18 134/39 100 Mechanical Ventilator 03/23/17 21:11 64 18 30 03/23/17 21:00 69 18 152/46 100 Mechanical Ventilator 03/23/17 20:00 70 03/23/17 20:00 98.0 70 18 125/60 100 Mechanical Ventilator 03/23/17 20:00 30 03/23/17 19:25 50 18 30 03/23/17 19:00 52 18 130/37 100 Mechanical Ventilator 03/23/17 18:00 54 18 133/38 99 Mechanical Ventilator 30 03/23/17 17:00 69 18 160/50 100 Mechanical Ventilator 30 03/23/17 16:42 72 21 30 03/23/17 16:00 98.3 61 16 145/47 100 Mechanical Ventilator 03/23/17 16:00 30 03/23/17 16:00 60 03/23/17 15:18 66 18 30 03/23/17 15:00 61 18 141/50 100 Mechanical Ventilator 03/23/17 14:00 52 18 144/58 100 Mechanical Ventilator 03/23/17 13:00 56 18 169/53 100 Mechanical Ventilator 03/23/17 12:57 55 18 30 03/23/17 12:00 57 03/23/17 12:00 30 03/23/17 12:00 98.4 60 21 128/39 100 Mechanical Ventilator 03/23/17 11:15 57 14 30 03/23/17 11:00 56 16 126/44 100 Mechanical Ventilator 30 Status: awake Condition: critical HEENT: atraumatic Neck: full ROM Lungs: clear, chest wall tender Heart: HR/BP unstable Abdomen: non-tender, active bowel sounds, feeding tube Extremities: edema Decubiti: location, stage Accucheck: 142 Critical Care - Subjective ROS Limited/Unobtainable: No Condition: critical FI02: 30 Vent Support Breath Rate: 18 Vent Support Mode: AC Vent Tidal Volume: 500 Sputum Amount: Scant PEEP: 5.0 PIP: 31 Tube Feeding Amount: 45 I&O: Intake and Output 03/24/17 03/25/17 19:00 07:00 Intake Total 135 ml Output Total 100 ml Balance 35 ml Tube Feeding 135 ml Output Urine Total 100 ml CXR: no change ET-Tube: 7.0 ET Position: 21 Labs: Laboratory Tests Test 03/24/17 04:20 White Blood Count 8.7 K/UL (4.8-10.8) Red Blood Count 2.86 M/UL (4.20-5.40) L Hemoglobin 10.2 G/DL (12.0-16.0) L Hematocrit 29.3 % (37.0-47.0) L Mean Corpuscular Volume 102 FL (80-99) H Mean Corpuscular Hemoglobin 35.4 PG (27.0-31.0) H Mean Corpuscular Hemoglobin Concent 34.7 G/DL (32.0-36.0) Red Cell Distribution Width 14.5 % (11.6-14.8) Platelet Count 270 K/UL (150-450) Mean Platelet Volume 9.0 FL (6.5-10.1) Neutrophils (%) (Auto) 74.9 % (45.0-75.0) Lymphocytes (%) (Auto) 13.3 % (20.0-45.0) L Monocytes (%) (Auto) 7.2 % (1.0-10.0) Eosinophils (%) (Auto) 3.5 % (0.0-3.0) H Basophils (%) (Auto) 1.1 % (0.0-2.0) Prothrombin Time 9.8 SEC (9.30-11.50) Prothromb Time International Ratio 0.9 (0.9-1.1) Activated Partial Thromboplast Time 25 SEC (23-33) Sodium Level 136 mEQ/L (135-145) Potassium Level 4.3 mEQ/L (3.4-4.9) Chloride Level 99 mEQ/L (98-107) Carbon Dioxide Level 26 mEQ/L (20-30) Anion Gap 11 (5-15) Blood Urea Nitrogen 27 mg/dL (7-23) H Creatinine 0.6 mg/dL (0.5-0.9) Estimat Glomerular Filtration Rate mL/min (>60) Glucose Level 203 mg/dL (74-106) H Calcium Level 9.4 mg/dL (8.6-10.2) Phosphorus Level 3.5 mg/dL (2.5-4.8) Magnesium Level 1.8 mg/dL (1.7-2.5) Total Bilirubin 0.3 mg/dL (0.0-1.2) Aspartate Amino Transf (AST/SGOT) 27 U/L (5-40) Alanine Aminotransferase (ALT/SGPT) 13 U/L (3-33) Alkaline Phosphatase 105 U/L (35-104) H Total Protein 6.1 g/dL (6.6-8.7) L Albumin 2.5 g/dL (3.5-5.2) L Globulin 3.6 g/dL Albumin/Globulin Ratio 0.6 (1.0-2.7) L ZAIRA ROSALES Mar 24, 2017 10:56
--- NOTE | 2017-03-24 11:19 | General Progress Note ---
Assessment/Plan Status: stable - from renal stand Assessment/Plan Respiratory failure requiring intubation Severe sepsis secondary to pneumonia, resolving UTI Acute cystitis without hematuria Pneumonia, non cavitary, w/o effusion Dementia Acute renal failure , Dehydration Hypoxemic respiratory failure Type 2 diabetes mellitus with hyperglycemia Proteinuria Plan: due Trach 03/26 Pulm support- Monitor renal parameters Urine studies- Avoid Nephrotoxics- Per Orders Subjective ROS Limited/Unobtainable: Yes Allergies: Coded Allergies: LORAZEPAM (Unverified Allergy, Unknown, 03/02/17) METOCLOPRAMIDE (Unverified Allergy, Unknown, 03/02/17) QUETIAPINE (Unverified Allergy, Unknown, 03/02/17) ZOLPIDEM (Unverified Allergy, Unknown, 03/02/17) Objective Last 24 Hour Vital Signs Date Time Temp Pulse Resp B/P (MAP) Pulse Ox O2 Delivery O2 Flow Rate FiO2 03/24/17 11:00 49 20 121/34 100 Mechanical Ventilator 03/24/17 10:55 51 18 30 03/24/17 10:00 59 18 114/45 100 Mechanical Ventilator 03/24/17 09:00 52 18 123/35 100 Mechanical Ventilator 03/24/17 08:54 57 18 30 03/24/17 08:00 98.5 55 20 117/58 100 Mechanical Ventilator 03/24/17 08:00 30 03/24/17 08:00 56 03/24/17 07:30 129/40 03/24/17 07:12 49 18 30 03/24/17 07:00 49 23 129/40 100 Mechanical Ventilator 03/24/17 06:00 50 24 128/36 100 Mechanical Ventilator 03/24/17 05:11 58 18 30 03/24/17 05:00 66 24 137/39 100 Mechanical Ventilator 03/24/17 04:00 51 03/24/17 04:00 30 03/24/17 04:00 98.4 56 22 134/30 100 Mechanical Ventilator 03/24/17 03:25 55 18 30 03/24/17 03:00 56 24 124/79 99 Mechanical Ventilator 03/24/17 02:00 63 23 176/41 100 Mechanical Ventilator 03/24/17 01:29 71 20 30 03/24/17 01:00 56 22 154/52 99 Mechanical Ventilator 03/24/17 00:00 98.4 55 18 141/59 100 Mechanical Ventilator 30 03/23/17 23:00 49 18 138/41 100 Mechanical Ventilator 03/23/17 22:35 51 18 30 03/23/17 22:00 52 18 134/39 100 Mechanical Ventilator 30 03/23/17 21:11 64 18 30 03/23/17 21:00 69 18 152/46 100 Mechanical Ventilator 03/23/17 20:00 70 03/23/17 20:00 98.0 70 18 125/60 100 Mechanical Ventilator 03/23/17 20:00 30 03/23/17 19:25 50 18 30 03/23/17 19:00 52 18 130/37 100 Mechanical Ventilator 03/23/17 18:00 54 18 133/38 99 Mechanical Ventilator 03/23/17 17:00 69 18 160/50 100 Mechanical Ventilator 03/23/17 16:42 72 21 30 03/23/17 16:00 98.3 61 16 145/47 100 Mechanical Ventilator 03/23/17 16:00 30 03/23/17 16:00 60 03/23/17 15:18 66 18 30 03/23/17 15:00 61 18 141/50 100 Mechanical Ventilator 03/23/17 14:00 52 18 144/58 100 Mechanical Ventilator 03/23/17 13:00 56 18 169/53 100 Mechanical Ventilator 03/23/17 12:57 55 18 30 03/23/17 12:00 57 03/23/17 12:00 30 03/23/17 12:00 98.4 60 21 128/39 100 Mechanical Ventilator 30 Intake and Output 03/24/17 03/25/17 19:00 07:00 Intake Total 180 ml Output Total 120 ml Balance 60 ml Tube Feeding 180 ml Output Urine Total 120 ml Laboratory Tests 03/24/17 04:20: White Blood Count 8.7, Red Blood Count 2.86L, Hemoglobin 10.2L, Hematocrit 29.3L , Mean Corpuscular Volume 102H, Mean Corpuscular Hemoglobin 35.4H, Mean Corpuscular Hemoglobin Concent 34.7, Red Cell Distribution Width 14.5, Platelet Count 270, Mean Platelet Volume 9.0, Neutrophils (%) (Auto) 74.9, Lymphocytes (% ) (Auto) 13.3L, Monocytes (%) (Auto) 7.2, Eosinophils (%) (Auto) 3.5H, Basophils (%) (Auto) 1.1, Prothrombin Time 9.8, Prothromb Time International Ratio 0.9, Activated Partial Thromboplast Time 25, Sodium Level 136, Potassium Level 4.3, Chloride Level 99, Carbon Dioxide Level 26, Anion Gap 11, Blood Urea Nitrogen 27H, Creatinine 0.6, Estimat Glomerular Filtration Rate , Glucose Level 203H, Calcium Level 9.4, Phosphorus Level 3.5, Magnesium Level 1.8, Total Bilirubin 0.3, Aspartate Amino Transf (AST/SGOT) 27, Alanine Aminotransferase ( ALT/SGPT) 13, Alkaline Phosphatase 105H, Total Protein 6.1L, Albumin 2.5L, Globulin 3.6, Albumin/Globulin Ratio 0.6L Height (Feet): 5 Height (Inches): 2.00 Weight (Pounds): 131 General Appearance: no apparent distress Objective PE not changed IRWIN DAMON Mar 24, 2017 11:19
--- NOTE | 2017-03-24 14:59 | Infectious Diseases Prog Note ---
Assessment/Plan Assessment/Plan IMPRESSION: 1. Severe sepsis with multiorgan failure, improving, secondary to pneumonia, non cavitary, w/o effusion s/p recent admission for hypoxemic resp failure and pneumonia, treated with D#7 IV vanc/cefepime completed on [id number] ucx neg 03/12 blood cx negative for MRSA/MSSA 2. Bibasilar staph aureus pneumonia 3. Acute respiratory failure. 4. Acute renal failure, prerenal, sp 5. Diabetes type 2 with hyperglycemia and proteinuria 6. Dementia. 7. Methicillin resistant Staphylococcus aureus colonization. 8. lactic acidosis, resolved 9. CoNS bacteremia vs contamination (03/12), s/p >7D IV vanc. consider treated. 10. mild R>L Tinea cruris on clotrimazole. 11. Cystitis, sterile, c/b microscopic hematuria. Plan: --continue IV vancomycin D# 12 of through [id number]. (03/15 s/p IV meropenem D#4) --monitor CBC --monitor temp curve --s/p surg consult, pending trach -- off of pressors -- continue clotrimazole to inguinal creases Subjective ROS Limited/Unobtainable: Yes Allergies: Coded Allergies: LORAZEPAM (Unverified Allergy, Unknown, 03/02/17) METOCLOPRAMIDE (Unverified Allergy, Unknown, 03/02/17) QUETIAPINE (Unverified Allergy, Unknown, 03/02/17) ZOLPIDEM (Unverified Allergy, Unknown, 03/02/17) Subjective afebrile. leukocytosis of 22 on admission resolved as of hospital d#4. Objective Vital Signs Last 24 Hour Vital Signs Date Time Temp Pulse Resp B/P (MAP) Pulse Ox O2 Delivery O2 Flow Rate FiO2 03/24/17 14:00 57 18 121/43 100 Mechanical Ventilator 30 03/24/17 13:27 49 18 30 03/24/17 13:00 58 20 116/43 100 Mechanical Ventilator 30 03/24/17 12:00 98.7 49 20 120/34 100 Mechanical Ventilator 30 03/24/17 12:00 30 03/24/17 12:00 49 03/24/17 11:49 50 18 30 03/24/17 11:00 49 20 121/34 100 Mechanical Ventilator 30 03/24/17 10:55 51 18 30 03/24/17 10:00 59 18 114/45 100 Mechanical Ventilator 30 03/24/17 09:00 52 18 123/35 100 Mechanical Ventilator 30 03/24/17 08:54 57 18 30 03/24/17 08:00 98.5 55 20 117/58 100 Mechanical Ventilator 30 03/24/17 08:00 30 03/24/17 08:00 56 03/24/17 07:30 129/40 03/24/17 07:12 49 18 30 03/24/17 07:00 49 23 129/40 100 Mechanical Ventilator 30 03/24/17 06:00 50 24 128/36 100 Mechanical Ventilator 30 03/24/17 05:11 58 18 30 03/24/17 05:00 66 24 137/39 100 Mechanical Ventilator 30 03/24/17 04:00 51 03/24/17 04:00 30 03/24/17 04:00 98.4 56 22 134/30 100 Mechanical Ventilator 30 03/24/17 03:25 55 18 30 03/24/17 03:00 56 24 124/79 99 Mechanical Ventilator 30 03/24/17 02:00 63 23 176/41 100 Mechanical Ventilator 30 03/24/17 01:29 71 20 30 03/24/17 01:00 56 22 154/52 99 Mechanical Ventilator 30 03/24/17 00:00 98.4 55 18 141/59 100 Mechanical Ventilator 30 03/23/17 23:00 49 18 138/41 100 Mechanical Ventilator 30 03/23/17 22:35 51 18 30 03/23/17 22:00 52 18 134/39 100 Mechanical Ventilator 30 03/23/17 21:11 64 18 30 03/23/17 21:00 69 18 152/46 100 Mechanical Ventilator 30 03/23/17 20:00 70 03/23/17 20:00 98.0 70 18 125/60 100 Mechanical Ventilator 30 03/23/17 20:00 30 03/23/17 19:25 50 18 30 03/23/17 19:00 52 18 130/37 100 Mechanical Ventilator 30 03/23/17 18:00 54 18 133/38 99 Mechanical Ventilator 30 03/23/17 17:00 69 18 160/50 100 Mechanical Ventilator 30 03/23/17 16:42 72 21 30 03/23/17 16:00 98.3 61 16 145/47 100 Mechanical Ventilator 30 03/23/17 16:00 30 03/23/17 16:00 60 03/23/17 15:18 66 18 30 03/23/17 15:00 61 18 141/50 100 Mechanical Ventilator 30 Height (Feet): 5 Height (Inches): 2.00 Weight (Pounds): 131 Objective gen: intubated, not currently sedated, opens eyes. heent: oral mucosa dry, sclera anicteric cv: rrr lungs: coarse rhonchi abd: G tube in place, soft, nttp ext: trace ble. s/p prior R femoral TLC CVC site well healed. bue contractures , mild. PIV c/d/i gu: wayne in place draining clear yellow urine. skin: R>L inguinal tinea cruris, no petechiae. Laboratory Tests Test 03/24/17 04:20 White Blood Count 8.7 K/UL (4.8-10.8) Red Blood Count 2.86 M/UL (4.20-5.40) L Hemoglobin 10.2 G/DL (12.0-16.0) L Hematocrit 29.3 % (37.0-47.0) L Mean Corpuscular Volume 102 FL (80-99) H Mean Corpuscular Hemoglobin 35.4 PG (27.0-31.0) H Mean Corpuscular Hemoglobin Concent 34.7 G/DL (32.0-36.0) Red Cell Distribution Width 14.5 % (11.6-14.8) Platelet Count 270 K/UL (150-450) Mean Platelet Volume 9.0 FL (6.5-10.1) Neutrophils (%) (Auto) 74.9 % (45.0-75.0) Lymphocytes (%) (Auto) 13.3 % (20.0-45.0) L Monocytes (%) (Auto) 7.2 % (1.0-10.0) Eosinophils (%) (Auto) 3.5 % (0.0-3.0) H Basophils (%) (Auto) 1.1 % (0.0-2.0) Prothrombin Time 9.8 SEC (9.30-11.50) Prothromb Time International Ratio 0.9 (0.9-1.1) Activated Partial Thromboplast Time 25 SEC (23-33) Sodium Level 136 mEQ/L (135-145) Potassium Level 4.3 mEQ/L (3.4-4.9) Chloride Level 99 mEQ/L (98-107) Carbon Dioxide Level 26 mEQ/L (20-30) Anion Gap 11 (5-15) Blood Urea Nitrogen 27 mg/dL (7-23) H Creatinine 0.6 mg/dL (0.5-0.9) Estimat Glomerular Filtration Rate mL/min (>60) Glucose Level 203 mg/dL (74-106) H Calcium Level 9.4 mg/dL (8.6-10.2) Phosphorus Level 3.5 mg/dL (2.5-4.8) Magnesium Level 1.8 mg/dL (1.7-2.5) Total Bilirubin 0.3 mg/dL (0.0-1.2) Aspartate Amino Transf (AST/SGOT) 27 U/L (5-40) Alanine Aminotransferase (ALT/SGPT) 13 U/L (3-33) Alkaline Phosphatase 105 U/L (35-104) H Total Protein 6.1 g/dL (6.6-8.7) L Albumin 2.5 g/dL (3.5-5.2) L Globulin 3.6 g/dL Albumin/Globulin Ratio 0.6 (1.0-2.7) L Current Medications Medications (Trade) Dose Ordered Sig/Ramiro Route PRN Reason Start Time Stop Time Status Last Admin Dose Admin Acetaminophen (Tylenol) 650 mg Q4H PRN ORAL fever>100.5 03/12/17 07:30 04/11/17 07:29 Artificial Tears (Akwa-Tears) 2 drop Q2H PRN BOTH EYES Dry Eyes 03/15/17 16:30 04/14/17 16:29 03/22/17 11:43 Clotrimazole (Lotrimin) 1 applic EVERY 12 HOURS TOPIC 03/20/17 21:00 04/19/17 20:59 03/24/17 08:12 Dextrose (Dextrose 50%) STAT PRN IV Hypoglycemia 03/12/17 10:00 04/11/17 09:59 Famotidine (Pepcid I.v.) 20 mg DAILY IVP 03/13/17 10:00 04/12/17 09:59 03/24/17 08:12 Heparin Sodium (Porcine) (Heparin 5000 units/ml) 5,000 units EVERY 12 HOURS SUBQ 03/12/17 09:00 04/11/17 08:59 03/24/17 08:11 Insulin Aspart (NovoLOG) Q4H SUBQ 03/12/17 12:00 04/11/17 11:59 03/24/17 11:59 Insulin Detemir (Levemir) 5 units DAILY SUBQ 03/15/17 14:00 04/14/17 13:59 03/24/17 09:02 Norepinephrine Bitartrate 4 mg/ Dextrose 254 ml @ 0 mls/hr Q24H IV 03/12/17 07:30 04/11/17 07:29 Ondansetron HCl (Zofran) 4 mg Q6H PRN IVP Nausea & Vomiting 03/12/17 07:30 04/11/17 07:29 Polyethylene Glycol (Miralax) 17 gm DAILYPRN PRN ORAL Constipation 03/12/17 07:30 04/11/17 07:29 Vancomycin HCl (Vanco rx to dose) 1 ea DAILY PRN MISC PER RX PROTOCOL 03/13/17 11:30 04/12/17 11:29 Vancomycin/Sodium Chloride 250 ml @ 166.667 mls/hr Q24H IVPB 03/16/17 17:00 03/26/17 16:59 03/23/17 16:13 Paul Amaay M.D. Mar 24, 2017 14:59
--- NOTE | 2017-03-24 15:19 | General Progress Note ---
Assessment/Plan Status: unchanged Assessment/Plan 1. Leukocytosis, secondary to underlying sepsis. Continue monitoring. --> Has been resolved --> WBC 8.0 2. Anemia secondary to chronic disease.. --> transfuse if hgb is less than 8 or symptomatic --> monitor counts --> has been stable >8 --> occult blood negative and hiv panel negative 4. Coagulopathy, potentially secondary to underlying sepsis as well. --> PTT and prothrombin time now WNL --> continue to monitor 5. Methicillin-resistant Staphylococcus aureus colonization. 6. Respiratory failure, status post intubation. 7. Acute kidney injury. --> nephrology following Subjective Date patient seen: Mar 24, 2017 Time patient seen: 06:00 Hematologic/Lymphatic: Reports: anemia Allergies: Coded Allergies: LORAZEPAM (Unverified Allergy, Unknown, 03/02/17) METOCLOPRAMIDE (Unverified Allergy, Unknown, 03/02/17) QUETIAPINE (Unverified Allergy, Unknown, 03/02/17) ZOLPIDEM (Unverified Allergy, Unknown, 03/02/17) Subjective Patient intubated. No acute bleeding. Vitals are stable. Sleeping. In ICU. Objective Last 24 Hour Vital Signs Date Time Temp Pulse Resp B/P (MAP) Pulse Ox O2 Delivery O2 Flow Rate FiO2 03/24/17 15:00 42 18 123/68 100 Mechanical Ventilator 03/24/17 15:00 59 18 30 03/24/17 14:00 57 18 121/43 100 Mechanical Ventilator 03/24/17 13:27 49 18 30 03/24/17 13:00 58 20 116/43 100 Mechanical Ventilator 03/24/17 12:00 98.7 49 20 120/34 100 Mechanical Ventilator 30 03/24/17 12:00 30 03/24/17 12:00 49 03/24/17 11:49 50 18 30 03/24/17 11:00 49 20 121/34 100 Mechanical Ventilator 30 03/24/17 10:55 51 18 30 03/24/17 10:00 59 18 114/45 100 Mechanical Ventilator 30 03/24/17 09:00 52 18 123/35 100 Mechanical Ventilator 30 03/24/17 08:54 57 18 30 03/24/17 08:00 98.5 55 20 117/58 100 Mechanical Ventilator 03/24/17 08:00 30 03/24/17 08:00 56 03/24/17 07:30 129/40 03/24/17 07:12 49 18 30 03/24/17 07:00 49 23 129/40 100 Mechanical Ventilator 30 03/24/17 06:00 50 24 128/36 100 Mechanical Ventilator 30 03/24/17 05:11 58 18 30 03/24/17 05:00 66 24 137/39 100 Mechanical Ventilator 03/24/17 04:00 51 03/24/17 04:00 30 03/24/17 04:00 98.4 56 22 134/30 100 Mechanical Ventilator 03/24/17 03:25 55 18 30 03/24/17 03:00 56 24 124/79 99 Mechanical Ventilator 03/24/17 02:00 63 23 176/41 100 Mechanical Ventilator 03/24/17 01:29 71 20 30 03/24/17 01:00 56 22 154/52 99 Mechanical Ventilator 03/24/17 00:00 98.4 55 18 141/59 100 Mechanical Ventilator 03/23/17 23:00 49 18 138/41 100 Mechanical Ventilator 03/23/17 22:35 51 18 30 03/23/17 22:00 52 18 134/39 100 Mechanical Ventilator 03/23/17 21:11 64 18 30 03/23/17 21:00 69 18 152/46 100 Mechanical Ventilator 03/23/17 20:00 70 03/23/17 20:00 98.0 70 18 125/60 100 Mechanical Ventilator 03/23/17 20:00 30 03/23/17 19:25 50 18 30 03/23/17 19:00 52 18 130/37 100 Mechanical Ventilator 03/23/17 18:00 54 18 133/38 99 Mechanical Ventilator 03/23/17 17:00 69 18 160/50 100 Mechanical Ventilator 03/23/17 16:42 72 21 30 03/23/17 16:00 98.3 61 16 145/47 100 Mechanical Ventilator 03/23/17 16:00 30 03/23/17 16:00 60 03/23/17 15:18 66 18 30 Intake and Output 03/24/17 03/25/17 19:00 07:00 Intake Total 360 ml Output Total 290 ml Balance 70 ml Tube Feeding 360 ml Output Urine Total 290 ml Laboratory Tests 03/24/17 04:20: White Blood Count 8.7, Red Blood Count 2.86L, Hemoglobin 10.2L, Hematocrit 29.3L , Mean Corpuscular Volume 102H, Mean Corpuscular Hemoglobin 35.4H, Mean Corpuscular Hemoglobin Concent 34.7, Red Cell Distribution Width 14.5, Platelet Count 270, Mean Platelet Volume 9.0, Neutrophils (%) (Auto) 74.9, Lymphocytes (% ) (Auto) 13.3L, Monocytes (%) (Auto) 7.2, Eosinophils (%) (Auto) 3.5H, Basophils (%) (Auto) 1.1, Prothrombin Time 9.8, Prothromb Time International Ratio 0.9, Activated Partial Thromboplast Time 25, Sodium Level 136, Potassium Level 4.3, Chloride Level 99, Carbon Dioxide Level 26, Anion Gap 11, Blood Urea Nitrogen 27H, Creatinine 0.6, Estimat Glomerular Filtration Rate , Glucose Level 203H, Calcium Level 9.4, Phosphorus Level 3.5, Magnesium Level 1.8, Total Bilirubin 0.3, Aspartate Amino Transf (AST/SGOT) 27, Alanine Aminotransferase ( ALT/SGPT) 13, Alkaline Phosphatase 105H, Total Protein 6.1L, Albumin 2.5L, Globulin 3.6, Albumin/Globulin Ratio 0.6L Height (Feet): 5 Height (Inches): 2.00 Weight (Pounds): 131 Cardiovascular: normal peripheral pulses, normal rate Respiratory/Chest: decreased breath sounds Abdomen: normal bowel sounds, non tender REBEKAH ARRIETA Mar 24, 2017 15:19
[2017-03-24] MEDS: Vancomycin 750mg/NS 250ml 250 ML IVPB SCH (16:08)
[2017-03-25] VITALS (22 sets, daily range): BP systolic 111–174; BP diastolic 30–70
[2017-03-25] MEDS: NovoLOG Insulin Flexpen SUBQ SCH ×6 (00:24→20:19)
[2017-03-25 04:31] LABS: BASOPHILS % (AUTO) 1.7 % (0.0-2.0); EOSINOPHILS % (AUTO) 3.6 % (0.0-3.0); LYMPHOCYTES % (AUTO) 15.5 % (20.0-45.0); MEAN CORPUSCULAR HEMOGLOBIN 34.6 PG (27.0-31.0); MEAN CORPUSCULAR HGB CONC 33.7 G/DL (32.0-36.0); MEAN CORPUSCULAR VOLUME 103 FL (80-99); MEAN PLATELET VOLUME 9.1 FL (6.5-10.1); MONOCYTES % (AUTO) 7.4 % (1.0-10.0); NEUTROPHILS % (AUTO) 71.8 % (45.0-75.0); PLATELET COUNT 270 K/UL (150-450); RED BLOOD COUNT 2.72 M/UL (4.20-5.40); RED CELL DISTRIBUTION WIDTH 14.8 % (11.6-14.8); WHITE BLOOD COUNT 7.4 K/UL (4.8-10.8)
[2017-03-25 04:50] LABS: PROTHROMBIN TIME 10.2 SEC (9.30-11.50)
[2017-03-25 04:59] LABS: ALANINE AMINOTRANSFERASE 12 U/L (3-33); ALBUMIN/GLOBULIN RATIO 0.6 (1.0-2.7); ANION GAP 13 (5-15); ASPARTATE AMINO TRANSFERASE 25 U/L (5-40); CALCIUM 9.3 mg/dL (8.6-10.2); CARBON DIOXIDE 23 mEQ/L (20-30); CHLORIDE 102 mEQ/L (98-107); CREATININE 0.7 mg/dL (0.5-0.9); HEMOLYSIS 25; MAGNESIUM 1.8 mg/dL (1.7-2.5); PHOSPHORUS 3.7 mg/dL (2.5-4.8); POTASSIUM 4.4 mEQ/L (3.4-4.9); SODIUM 138 mEQ/L (135-145); TOTAL PROTEIN 5.8 g/dL (6.6-8.7)
--- NOTE | 2017-03-25 07:27 | Pulmonolgy Critical Care Note ---
Critical Care - Asmt/Plan Assessment/Plan: ASSESSMENT Severe sepsis with MOF Acute hypoxemic respiratory failure requiring intubation failure to wean Bilateral PNA with MRSA bradycardia ARF, likely due to dehydration- resolved Dehydration Hyperglycemia due to DM DM type 2 Lactic acidosis- resolved Hypernatremia due to dehydration, resolved Advanced dementia Dysphagia G tube Anemia of chronic disease, requiring transfusion Hypokalemia PLAN OF CARE ICU care off pressors, BP stable Vent support Pulmonary toilet Fup CXR , ABG in am failure to wean trach pending for Monday 03/26 Abx ID follows urine cx negative, blood cx 1/ +GPC in clusters, likely contaminant, sputum cx + MRSA bradycardic not on any AV/SA blocking agents, HR in 40th cardio eval for need of pacemaker s/p IVF Nephro follows ARF and hyper Na resolved, likely due to dehydration renal US with R echogenic kidney, suggesting long standing renal artery stenosis , ECHO with EF 65% and RVSP of 37 K stable after replacement nephro follows Anemia workup c/w anemia of chronic disease, HH up after 1 u PRBC , stool OB negative Heme follows BS management with Levemir and SS of insulin prn , BS improving, [id number] Strict aspiration precautions, G tube feeding, monitor tolerance DVT GI prophylaxis case discussed and evaluated by supervising physician Critical Care - Objective Last 24 Hour Vital Signs Date Time Temp Pulse Resp B/P (MAP) Pulse Ox O2 Delivery O2 Flow Rate FiO2 03/25/17 07:15 50 22 30 03/25/17 07:00 47 18 122/35 100 Mechanical Ventilator 03/25/17 06:00 60 18 114/30 100 Mechanical Ventilator 03/25/17 05:00 49 22 144/38 100 Mechanical Ventilator 03/25/17 04:59 40 22 30 03/25/17 04:00 30 03/25/17 04:00 98.9 41 18 118/70 100 Mechanical Ventilator 03/25/17 04:00 49 03/25/17 03:30 42 18 30 03/25/17 03:00 65 22 113/54 100 Mechanical Ventilator 30 03/25/17 02:00 46 18 116/69 100 Mechanical Ventilator 30 03/25/17 01:30 37 18 30 03/25/17 01:00 56 18 121/38 100 Mechanical Ventilator 30 03/25/17 00:00 98.7 43 18 127/35 100 Mechanical Ventilator 30 03/24/17 23:30 34 18 30 03/24/17 23:00 57 18 138/37 100 Mechanical Ventilator 30 03/24/17 22:00 57 18 125/44 100 Mechanical Ventilator 30 03/24/17 21:03 40 20 30 03/24/17 21:00 69 18 107/50 100 Mechanical Ventilator 30 03/24/17 20:00 98.4 65 18 125/57 100 Mechanical Ventilator 30 03/24/17 20:00 58 03/24/17 20:00 30 03/24/17 19:30 40 21 30 03/24/17 19:00 44 18 107/50 100 Mechanical Ventilator 30 03/24/17 18:00 42 18 147/44 100 Mechanical Ventilator 30 03/24/17 17:29 53 18 30 03/24/17 17:00 53 18 132/37 100 Mechanical Ventilator 30 03/24/17 16:00 52 03/24/17 16:00 30 03/24/17 16:00 98.5 56 20 141/50 100 Mechanical Ventilator 30 03/24/17 15:00 42 18 123/68 100 Mechanical Ventilator 30 03/24/17 15:00 59 18 30 03/24/17 14:00 57 18 121/43 100 Mechanical Ventilator 30 03/24/17 13:27 49 18 30 03/24/17 13:00 58 20 116/43 100 Mechanical Ventilator 30 03/24/17 12:00 98.7 49 20 120/34 100 Mechanical Ventilator 30 03/24/17 12:00 30 03/24/17 12:00 49 03/24/17 11:49 50 18 30 03/24/17 11:00 49 20 121/34 100 Mechanical Ventilator 30 03/24/17 10:55 51 18 30 03/24/17 10:00 59 18 114/45 100 Mechanical Ventilator 30 03/24/17 09:00 52 18 123/35 100 Mechanical Ventilator 30 03/24/17 08:54 57 18 30 03/24/17 08:00 98.5 55 20 117/58 100 Mechanical Ventilator 30 03/24/17 08:00 30 03/24/17 08:00 56 03/24/17 07:30 129/40 Objective: Status: awake, intubated Condition: critical HEENT: atraumatic, normocephalic, OP with ET in place, intact, Lungs: few scattered rhonchi Heart: HR/BP stable, SB on tele, HR in 40th Abdomen: soft, non-tender, active bowel sounds, G tube with TF Extremities: no C/C/E Accucheck: 153 Critical Care - Subjective ROS Limited/Unobtainable: Yes Interval Events: failure to wean CXR still with bilateral infiltrates awaiting for trach , pending for tomorrow bradycardic, HR in 40th Condition: critical IV Access: peripheral EKG Rhythm: Sinus Bradycardia FI02: 30 Vent Support Breath Rate: 18 Vent Support Mode: AC Vent Tidal Volume: 500 Sputum Amount: Small PEEP: 5.0 PIP: 28 Tube Feeding Amount: 45 CXR: Infiltrates are present within the lungs bilaterally unchanged ET-Tube: 7.0 ET Position: 21 Yuri (Marielena),Kathy BUSCH Mar 25, 2017 07:27
[2017-03-25] MEDS: Levemir Flexpen SUBQ SCH (08:47)
[2017-03-25] MEDS: Heparin 5000 units/ml inj SUBQ SCH ×2 (08:48→21:00)
[2017-03-25] MEDS: Famotidine 20 MG/ 2ML VIAL IVP SCH (08:48)
--- NOTE | 2017-03-25 09:26 | General Progress Note ---
Assessment/Plan Status: stable Assessment/Plan Respiratory failure requiring intubation Severe sepsis secondary to pneumonia, resolving UTI Acute cystitis without hematuria Pneumonia, non cavitary, w/o effusion Dementia Acute renal failure , Dehydration Hypoxemic respiratory failure Type 2 diabetes mellitus with hyperglycemia Proteinuria Plan: due Trach 03/26 Pulm support- Monitor renal parameters Urine studies- Avoid Nephrotoxics- Per Orders Subjective ROS Limited/Unobtainable: No Allergies: Coded Allergies: LORAZEPAM (Unverified Allergy, Unknown, 03/02/17) METOCLOPRAMIDE (Unverified Allergy, Unknown, 03/02/17) QUETIAPINE (Unverified Allergy, Unknown, 03/02/17) ZOLPIDEM (Unverified Allergy, Unknown, 03/02/17) Objective Last 24 Hour Vital Signs Date Time Temp Pulse Resp B/P (MAP) Pulse Ox O2 Delivery O2 Flow Rate FiO2 03/25/17 09:00 58 18 124/31 100 Mechanical Ventilator 03/25/17 08:45 111/33 03/25/17 08:00 98.0 52 18 111/33 100 Mechanical Ventilator 03/25/17 08:00 73 03/25/17 08:00 30 03/25/17 07:15 50 22 30 03/25/17 07:00 47 18 122/35 100 Mechanical Ventilator 03/25/17 06:00 60 18 114/30 100 Mechanical Ventilator 03/25/17 05:00 49 22 144/38 100 Mechanical Ventilator 03/25/17 04:59 40 22 30 03/25/17 04:00 30 03/25/17 04:00 98.9 41 18 118/70 100 Mechanical Ventilator 03/25/17 04:00 49 03/25/17 03:30 42 18 30 03/25/17 03:00 65 22 113/54 100 Mechanical Ventilator 03/25/17 02:00 46 18 116/69 100 Mechanical Ventilator 03/25/17 01:30 37 18 30 03/25/17 01:00 56 18 121/38 100 Mechanical Ventilator 03/25/17 00:00 98.7 43 18 127/35 100 Mechanical Ventilator 03/24/17 23:30 34 18 30 03/24/17 23:00 57 18 138/37 100 Mechanical Ventilator 03/24/17 22:00 57 18 125/44 100 Mechanical Ventilator 03/24/17 21:03 40 20 30 03/24/17 21:00 69 18 107/50 100 Mechanical Ventilator 30 03/24/17 20:00 98.4 65 18 125/57 100 Mechanical Ventilator 30 03/24/17 20:00 58 03/24/17 20:00 30 03/24/17 19:30 40 21 30 03/24/17 19:00 44 18 107/50 100 Mechanical Ventilator 30 03/24/17 18:00 42 18 147/44 100 Mechanical Ventilator 30 03/24/17 17:29 53 18 30 03/24/17 17:00 53 18 132/37 100 Mechanical Ventilator 30 03/24/17 16:00 52 03/24/17 16:00 30 03/24/17 16:00 98.5 56 20 141/50 100 Mechanical Ventilator 30 03/24/17 15:00 42 18 123/68 100 Mechanical Ventilator 30 03/24/17 15:00 59 18 30 03/24/17 14:00 57 18 121/43 100 Mechanical Ventilator 03/24/17 13:27 49 18 30 03/24/17 13:00 58 20 116/43 100 Mechanical Ventilator 30 03/24/17 12:00 98.7 49 20 120/34 100 Mechanical Ventilator 30 03/24/17 12:00 30 03/24/17 12:00 49 03/24/17 11:49 50 18 30 03/24/17 11:00 49 20 121/34 100 Mechanical Ventilator 30 03/24/17 10:55 51 18 30 03/24/17 10:00 59 18 114/45 100 Mechanical Ventilator 30 Laboratory Tests 03/25/17 03:20: White Blood Count 7.4, Red Blood Count 2.72L, Hemoglobin 9.4L, Hematocrit 27.9L , Mean Corpuscular Volume 103H, Mean Corpuscular Hemoglobin 34.6H, Mean Corpuscular Hemoglobin Concent 33.7, Red Cell Distribution Width 14.8, Platelet Count 270, Mean Platelet Volume 9.1, Neutrophils (%) (Auto) 71.8, Lymphocytes (% ) (Auto) 15.5L, Monocytes (%) (Auto) 7.4, Eosinophils (%) (Auto) 3.6H, Basophils (%) (Auto) 1.7, Prothrombin Time 10.2, Prothromb Time International Ratio 1.0, Activated Partial Thromboplast Time 26, Sodium Level 138, Potassium Level 4.4, Chloride Level 102, Carbon Dioxide Level 23, Anion Gap 13, Blood Urea Nitrogen 31H, Creatinine 0.7, Estimat Glomerular Filtration Rate , Glucose Level 136H, Calcium Level 9.3, Phosphorus Level 3.7, Magnesium Level 1.8, Total Bilirubin < 0.2, Aspartate Amino Transf (AST/SGOT) 25, Alanine Aminotransferase (ALT/SGPT) 12, Alkaline Phosphatase 109H, Total Protein 5.8L, Albumin 2.3L, Globulin 3.5, Albumin/Globulin Ratio 0.6L Height (Feet): 5 Height (Inches): 2.00 Weight (Pounds): 131 General Appearance: no apparent distress EENT: other - on vent Cardiovascular: normal rate Respiratory/Chest: decreased breath sounds Abdomen: soft Objective PE not changed IRWIN DAMON Mar 25, 2017 09:26
[2017-03-25] MEDS ORDERED: DuoNeb 0.5-3(2.5)mg/3ml neb HHN PRN (10:00)
--- NOTE | 2017-03-25 10:32 | Pre-Procedure Note/Attestation ---
Pre-Procedure Note/Attestation Complete Prior to Procedure Planned Procedure: not applicable Procedure Narrative: Tracheostomy Indications for Procedure Pre-Operative Diagnosis: respiratory failure requiring prolonged ventilation Attestation I attest that I discussed the nature of the procedure; its benefits; risks and complications; and alternatives (and the risks and benefits of such alternatives ), prior to the procedure, with the patient (or the patient's legal sales representative health insurance). I attest that, if there was a reasonable possibility of needing a blood transfusion, the patient (or the patient's legal sales representative health insurance) was given the [facility] standardized written summary, pursuant to the [place] Blood Safety Act ([place] Health and Safety Code # 1645, as amended). I attest that I re-evaluated the patient just prior to the surgery and that there has been no change in the patient's H&P, except as documented below: Ranjan Troy Mar 25, 2017 10:32
--- NOTE | 2017-03-25 13:40 | Cardiology Progress Note ---
Subjective Subjective The driss had 2;1 AV block upon arrival on March 12. Now she has episodes of bradycardia, and I suspect this is due to AV block based on telemetry strips. At present time she is stable, she needs GUILHERME to rule out endocarditis. Will watch her and see if she has indications for temporary pacemaker. External pacemaker is applied. her BP is stable and she had only short episodes of Av block Objective Last 24 Hour Vital Signs Date Time Temp Pulse Resp B/P (MAP) Pulse Ox O2 Delivery O2 Flow Rate FiO2 03/25/17 13:00 42 18 134/46 100 Mechanical Ventilator 30 03/25/17 12:37 53 18 30 03/25/17 12:00 30 03/25/17 12:00 98.1 58 18 138/42 100 Mechanical Ventilator 03/25/17 11:23 50 18 30 03/25/17 11:00 61 19 136/41 100 Mechanical Ventilator 03/25/17 10:35 33 03/25/17 10:00 59 19 120/35 100 Mechanical Ventilator 03/25/17 09:25 36 18 30 03/25/17 09:00 58 18 124/31 100 Mechanical Ventilator 30 03/25/17 08:45 111/33 03/25/17 08:00 98.0 52 18 111/33 100 Mechanical Ventilator 03/25/17 08:00 73 03/25/17 08:00 30 03/25/17 07:15 50 22 30 03/25/17 07:00 47 18 122/35 100 Mechanical Ventilator 03/25/17 06:00 60 18 114/30 100 Mechanical Ventilator 03/25/17 05:00 49 22 144/38 100 Mechanical Ventilator 03/25/17 04:59 40 22 30 03/25/17 04:00 30 03/25/17 04:00 98.9 41 18 118/70 100 Mechanical Ventilator 03/25/17 04:00 49 03/25/17 03:30 42 18 30 03/25/17 03:00 65 22 113/54 100 Mechanical Ventilator 03/25/17 02:00 46 18 116/69 100 Mechanical Ventilator 03/25/17 01:30 37 18 30 03/25/17 01:00 56 18 121/38 100 Mechanical Ventilator 03/25/17 00:00 98.7 43 18 127/35 100 Mechanical Ventilator 30 03/24/17 23:30 34 18 30 03/24/17 23:00 57 18 138/37 100 Mechanical Ventilator 30 03/24/17 22:00 57 18 125/44 100 Mechanical Ventilator 30 03/24/17 21:03 40 20 30 03/24/17 21:00 69 18 107/50 100 Mechanical Ventilator 30 03/24/17 20:00 98.4 65 18 125/57 100 Mechanical Ventilator 30 03/24/17 20:00 58 03/24/17 20:00 30 03/24/17 19:30 40 21 30 03/24/17 19:00 44 18 107/50 100 Mechanical Ventilator 30 03/24/17 18:00 42 18 147/44 100 Mechanical Ventilator 30 03/24/17 17:29 53 18 30 03/24/17 17:00 53 18 132/37 100 Mechanical Ventilator 30 03/24/17 16:00 52 03/24/17 16:00 30 03/24/17 16:00 98.5 56 20 141/50 100 Mechanical Ventilator 30 03/24/17 15:00 42 18 123/68 100 Mechanical Ventilator 30 03/24/17 15:00 59 18 30 03/24/17 14:00 57 18 121/43 100 Mechanical Ventilator 30 Intake and Output 03/25/17 03/26/17 19:00 07:00 Intake Total 320 ml Output Total 180 ml Balance 140 ml Free Water 50 ml Tube Feeding 270 ml Output Urine Total 180 ml Laboratory Tests Test 03/25/17 03:20 White Blood Count 7.4 K/UL (4.8-10.8) Red Blood Count 2.72 M/UL (4.20-5.40) L Hemoglobin 9.4 G/DL (12.0-16.0) L Hematocrit 27.9 % (37.0-47.0) L Mean Corpuscular Volume 103 FL (80-99) H Mean Corpuscular Hemoglobin 34.6 PG (27.0-31.0) H Mean Corpuscular Hemoglobin Concent 33.7 G/DL (32.0-36.0) Red Cell Distribution Width 14.8 % (11.6-14.8) Platelet Count 270 K/UL (150-450) Mean Platelet Volume 9.1 FL (6.5-10.1) Neutrophils (%) (Auto) 71.8 % (45.0-75.0) Lymphocytes (%) (Auto) 15.5 % (20.0-45.0) L Monocytes (%) (Auto) 7.4 % (1.0-10.0) Eosinophils (%) (Auto) 3.6 % (0.0-3.0) H Basophils (%) (Auto) 1.7 % (0.0-2.0) Prothrombin Time 10.2 SEC (9.30-11.50) Prothromb Time International Ratio 1.0 (0.9-1.1) Activated Partial Thromboplast Time 26 SEC (23-33) Sodium Level 138 mEQ/L (135-145) Potassium Level 4.4 mEQ/L (3.4-4.9) Chloride Level 102 mEQ/L (98-107) Carbon Dioxide Level 23 mEQ/L (20-30) Anion Gap 13 (5-15) Blood Urea Nitrogen 31 mg/dL (7-23) H Creatinine 0.7 mg/dL (0.5-0.9) Estimat Glomerular Filtration Rate mL/min (>60) Glucose Level 136 mg/dL (74-106) H Calcium Level 9.3 mg/dL (8.6-10.2) Phosphorus Level 3.7 mg/dL (2.5-4.8) Magnesium Level 1.8 mg/dL (1.7-2.5) Total Bilirubin < 0.2 mg/dL (0.0-1.2) Aspartate Amino Transf (AST/SGOT) 25 U/L (5-40) Alanine Aminotransferase (ALT/SGPT) 12 U/L (3-33) Alkaline Phosphatase 109 U/L (35-104) H Total Protein 5.8 g/dL (6.6-8.7) L Albumin 2.3 g/dL (3.5-5.2) L Globulin 3.5 g/dL Albumin/Globulin Ratio 0.6 (1.0-2.7) MONICO WILKERSON Mar 25, 2017 13:40
--- NOTE | 2017-03-25 14:20 | Cardiology Progress Note ---
Subjective Subjective The patient has indications for temprary pacemaker. I spoke to patient's daughter and son. They agree. I spoke to [facility] nursing and hospital nursing supervisor advice. I told her that patient needs temporary pacemaker today. The patient needs to go to OR to have it done under fluoroscopy. I told her we need temporary pacemaker equipment. they have pacing box. I explained to her that I need temporary pacing wire which is sterile. She will look for it. Objective Last 24 Hour Vital Signs Date Time Temp Pulse Resp B/P (MAP) Pulse Ox O2 Delivery O2 Flow Rate FiO2 03/25/17 13:00 42 18 134/46 100 Mechanical Ventilator 30 03/25/17 12:37 53 18 30 03/25/17 12:00 30 03/25/17 12:00 98.1 58 18 138/42 100 Mechanical Ventilator 03/25/17 11:23 50 18 30 03/25/17 11:00 61 19 136/41 100 Mechanical Ventilator 03/25/17 10:35 33 03/25/17 10:00 59 19 120/35 100 Mechanical Ventilator 03/25/17 09:25 36 18 30 03/25/17 09:00 58 18 124/31 100 Mechanical Ventilator 30 03/25/17 08:45 111/33 03/25/17 08:00 98.0 52 18 111/33 100 Mechanical Ventilator 03/25/17 08:00 73 03/25/17 08:00 30 03/25/17 07:15 50 22 30 03/25/17 07:00 47 18 122/35 100 Mechanical Ventilator 03/25/17 06:00 60 18 114/30 100 Mechanical Ventilator 03/25/17 05:00 49 22 144/38 100 Mechanical Ventilator 03/25/17 04:59 40 22 30 03/25/17 04:00 30 03/25/17 04:00 98.9 41 18 118/70 100 Mechanical Ventilator 03/25/17 04:00 49 03/25/17 03:30 42 18 30 03/25/17 03:00 65 22 113/54 100 Mechanical Ventilator 03/25/17 02:00 46 18 116/69 100 Mechanical Ventilator 03/25/17 01:30 37 18 30 03/25/17 01:00 56 18 121/38 100 Mechanical Ventilator 03/25/17 00:00 98.7 43 18 127/35 100 Mechanical Ventilator 30 03/24/17 23:30 34 18 30 03/24/17 23:00 57 18 138/37 100 Mechanical Ventilator 30 03/24/17 22:00 57 18 125/44 100 Mechanical Ventilator 30 03/24/17 21:03 40 20 30 03/24/17 21:00 69 18 107/50 100 Mechanical Ventilator 30 03/24/17 20:00 98.4 65 18 125/57 100 Mechanical Ventilator 03/24/17 20:00 58 03/24/17 20:00 30 03/24/17 19:30 40 21 30 03/24/17 19:00 44 18 107/50 100 Mechanical Ventilator 30 03/24/17 18:00 42 18 147/44 100 Mechanical Ventilator 30 03/24/17 17:29 53 18 30 03/24/17 17:00 53 18 132/37 100 Mechanical Ventilator 30 03/24/17 16:00 52 03/24/17 16:00 30 03/24/17 16:00 98.5 56 20 141/50 100 Mechanical Ventilator 30 03/24/17 15:00 42 18 123/68 100 Mechanical Ventilator 30 03/24/17 15:00 59 18 30 Intake and Output 03/25/17 03/26/17 19:00 07:00 Intake Total 320 ml Output Total 180 ml Balance 140 ml Free Water 50 ml Tube Feeding 270 ml Output Urine Total 180 ml Laboratory Tests Test 03/25/17 03:20 White Blood Count 7.4 K/UL (4.8-10.8) Red Blood Count 2.72 M/UL (4.20-5.40) L Hemoglobin 9.4 G/DL (12.0-16.0) L Hematocrit 27.9 % (37.0-47.0) L Mean Corpuscular Volume 103 FL (80-99) H Mean Corpuscular Hemoglobin 34.6 PG (27.0-31.0) H Mean Corpuscular Hemoglobin Concent 33.7 G/DL (32.0-36.0) Red Cell Distribution Width 14.8 % (11.6-14.8) Platelet Count 270 K/UL (150-450) Mean Platelet Volume 9.1 FL (6.5-10.1) Neutrophils (%) (Auto) 71.8 % (45.0-75.0) Lymphocytes (%) (Auto) 15.5 % (20.0-45.0) L Monocytes (%) (Auto) 7.4 % (1.0-10.0) Eosinophils (%) (Auto) 3.6 % (0.0-3.0) H Basophils (%) (Auto) 1.7 % (0.0-2.0) Prothrombin Time 10.2 SEC (9.30-11.50) Prothromb Time International Ratio 1.0 (0.9-1.1) Activated Partial Thromboplast Time 26 SEC (23-33) Sodium Level 138 mEQ/L (135-145) Potassium Level 4.4 mEQ/L (3.4-4.9) Chloride Level 102 mEQ/L (98-107) Carbon Dioxide Level 23 mEQ/L (20-30) Anion Gap 13 (5-15) Blood Urea Nitrogen 31 mg/dL (7-23) H Creatinine 0.7 mg/dL (0.5-0.9) Estimat Glomerular Filtration Rate mL/min (>60) Glucose Level 136 mg/dL (74-106) H Calcium Level 9.3 mg/dL (8.6-10.2) Phosphorus Level 3.7 mg/dL (2.5-4.8) Magnesium Level 1.8 mg/dL (1.7-2.5) Total Bilirubin < 0.2 mg/dL (0.0-1.2) Aspartate Amino Transf (AST/SGOT) 25 U/L (5-40) Alanine Aminotransferase (ALT/SGPT) 12 U/L (3-33) Alkaline Phosphatase 109 U/L (35-104) H Total Protein 5.8 g/dL (6.6-8.7) L Albumin 2.3 g/dL (3.5-5.2) L Globulin 3.5 g/dL Albumin/Globulin Ratio 0.6 (1.0-2.7) MONICO WILKERSON Mar 25, 2017 14:19
[2017-03-25] MEDS ORDERED: LR 1000ml ONE (15:00)
[2017-03-25] MEDS ORDERED: Zemuron 50mg/5ml Inj IV ONE (15:00)
[2017-03-25] MEDS ORDERED: Glycopyrrolate 0.2mg/ml 1ml Vial ONE (15:00)
[2017-03-25] MEDS ORDERED: Lidocaine 1% Plain 30 ml INJ ONE (15:28)
[2017-03-25] MEDS ORDERED: Bupivacaine 0.25% Inj 30ml INJ ONE (15:28)
--- NOTE | 2017-03-25 15:37 | Infectious Diseases Prog Note ---
Assessment/Plan Assessment/Plan IMPRESSION: 1. Severe sepsis with multiorgan failure, improving, secondary to pneumonia, non cavitary, w/o effusion s/p recent admission for hypoxemic resp failure and pneumonia, treated with D#7 IV vanc/cefepime completed on [id number] 8/22 ucx neg 03/12 blood cx negative for MRSA/MSSA 2. Bibasilar staph aureus pneumonia, to complete D14 IV vanc on 03/26/17 3. Acute respiratory failure. 4. Acute renal failure, prerenal, sp 5. Diabetes type 2 with hyperglycemia and proteinuria 6. Dementia. 7. Methicillin resistant Staphylococcus aureus colonization. 8. lactic acidosis, resolved 9. CoNS bacteremia vs contamination (03/12), s/p >7D IV vanc. consider treated. 10. mild R>L Tinea cruris on clotrimazole. 11. Cystitis, sterile, c/b microscopic hematuria. Plan: --continue IV vancomycin D# 13 of 14 through [id number]. (03/15 s/p IV meropenem D#4) --monitor CBC --monitor temp curve --s/p surg consult, pending trach -- off of pressors -- continue clotrimazole to inguinal creases Subjective ROS Limited/Unobtainable: Yes Allergies: Coded Allergies: LORAZEPAM (Unverified Allergy, Unknown, 03/02/17) METOCLOPRAMIDE (Unverified Allergy, Unknown, 03/02/17) QUETIAPINE (Unverified Allergy, Unknown, 03/02/17) ZOLPIDEM (Unverified Allergy, Unknown, 03/02/17) Subjective afebrile. leukocytosis of 22 on admission resolved as of hospital d#4. Objective Vital Signs Last 24 Hour Vital Signs Date Time Temp Pulse Resp B/P (MAP) Pulse Ox O2 Delivery O2 Flow Rate FiO2 03/25/17 15:22 49 18 30 03/25/17 14:00 54 18 149/51 100 Mechanical Ventilator 30 03/25/17 13:00 42 18 134/46 100 Mechanical Ventilator 30 03/25/17 12:37 53 18 30 03/25/17 12:00 30 03/25/17 12:00 98.1 58 18 138/42 100 Mechanical Ventilator 30 03/25/17 11:23 50 18 30 03/25/17 11:00 61 19 136/41 100 Mechanical Ventilator 30 03/25/17 10:35 33 03/25/17 10:00 59 19 120/35 100 Mechanical Ventilator 30 03/25/17 09:25 36 18 30 03/25/17 09:00 58 18 124/31 100 Mechanical Ventilator 30 03/25/17 08:45 111/33 03/25/17 08:00 98.0 52 18 111/33 100 Mechanical Ventilator 30 03/25/17 08:00 73 03/25/17 08:00 30 03/25/17 07:15 50 22 30 03/25/17 07:00 47 18 122/35 100 Mechanical Ventilator 30 03/25/17 06:00 60 18 114/30 100 Mechanical Ventilator 30 03/25/17 05:00 49 22 144/38 100 Mechanical Ventilator 30 03/25/17 04:59 40 22 30 03/25/17 04:00 30 03/25/17 04:00 98.9 41 18 118/70 100 Mechanical Ventilator 30 03/25/17 04:00 49 03/25/17 03:30 42 18 30 03/25/17 03:00 65 22 113/54 100 Mechanical Ventilator 30 03/25/17 02:00 46 18 116/69 100 Mechanical Ventilator 30 03/25/17 01:30 37 18 30 03/25/17 01:00 56 18 121/38 100 Mechanical Ventilator 30 03/25/17 00:00 98.7 43 18 127/35 100 Mechanical Ventilator 30 03/24/17 23:30 34 18 30 03/24/17 23:00 57 18 138/37 100 Mechanical Ventilator 30 03/24/17 22:00 57 18 125/44 100 Mechanical Ventilator 30 03/24/17 21:03 40 20 30 03/24/17 21:00 69 18 107/50 100 Mechanical Ventilator 30 03/24/17 20:00 98.4 65 18 125/57 100 Mechanical Ventilator 30 03/24/17 20:00 58 03/24/17 20:00 30 03/24/17 19:30 40 21 30 03/24/17 19:00 44 18 107/50 100 Mechanical Ventilator 30 03/24/17 18:00 42 18 147/44 100 Mechanical Ventilator 30 03/24/17 17:29 53 18 30 03/24/17 17:00 53 18 132/37 100 Mechanical Ventilator 30 03/24/17 16:00 52 03/24/17 16:00 30 03/24/17 16:00 98.5 56 20 141/50 100 Mechanical Ventilator 30 Height (Feet): 5 Height (Inches): 2.00 Weight (Pounds): 131 Objective gen: intubated, not currently sedated, opens eyes. heent: oral mucosa dry, sclera anicteric cv: rrr lungs: coarse rhonchi abd: G tube in place, soft, nttp ext: trace ble. s/p prior R femoral TLC CVC site well healed. bue contractures , mild. PIV c/d/i gu: wayne in place draining clear yellow urine. skin: R>L inguinal tinea cruris, no petechiae. Laboratory Tests Test 03/25/17 03:20 White Blood Count 7.4 K/UL (4.8-10.8) Red Blood Count 2.72 M/UL (4.20-5.40) L Hemoglobin 9.4 G/DL (12.0-16.0) L Hematocrit 27.9 % (37.0-47.0) L Mean Corpuscular Volume 103 FL (80-99) H Mean Corpuscular Hemoglobin 34.6 PG (27.0-31.0) H Mean Corpuscular Hemoglobin Concent 33.7 G/DL (32.0-36.0) Red Cell Distribution Width 14.8 % (11.6-14.8) Platelet Count 270 K/UL (150-450) Mean Platelet Volume 9.1 FL (6.5-10.1) Neutrophils (%) (Auto) 71.8 % (45.0-75.0) Lymphocytes (%) (Auto) 15.5 % (20.0-45.0) L Monocytes (%) (Auto) 7.4 % (1.0-10.0) Eosinophils (%) (Auto) 3.6 % (0.0-3.0) H Basophils (%) (Auto) 1.7 % (0.0-2.0) Prothrombin Time 10.2 SEC (9.30-11.50) Prothromb Time International Ratio 1.0 (0.9-1.1) Activated Partial Thromboplast Time 26 SEC (23-33) Sodium Level 138 mEQ/L (135-145) Potassium Level 4.4 mEQ/L (3.4-4.9) Chloride Level 102 mEQ/L (98-107) Carbon Dioxide Level 23 mEQ/L (20-30) Anion Gap 13 (5-15) Blood Urea Nitrogen 31 mg/dL (7-23) H Creatinine 0.7 mg/dL (0.5-0.9) Estimat Glomerular Filtration Rate mL/min (>60) Glucose Level 136 mg/dL (74-106) H Calcium Level 9.3 mg/dL (8.6-10.2) Phosphorus Level 3.7 mg/dL (2.5-4.8) Magnesium Level 1.8 mg/dL (1.7-2.5) Total Bilirubin < 0.2 mg/dL (0.0-1.2) Aspartate Amino Transf (AST/SGOT) 25 U/L (5-40) Alanine Aminotransferase (ALT/SGPT) 12 U/L (3-33) Alkaline Phosphatase 109 U/L (35-104) H Total Protein 5.8 g/dL (6.6-8.7) L Albumin 2.3 g/dL (3.5-5.2) L Globulin 3.5 g/dL Albumin/Globulin Ratio 0.6 (1.0-2.7) L Current Medications Medications (Trade) Dose Ordered Sig/Ramiro Route PRN Reason Start Time Stop Time Status Last Admin Dose Admin Acetaminophen (Tylenol) 650 mg Q4H PRN ORAL fever>100.5 03/12/17 07:30 04/11/17 07:29 Albuterol/ Ipratropium (DuoNeb 0.5-3(2.5)mg/3ml) 3 ml Q4H PRN HHN SHORTNESS OF BREATH 03/25/17 10:00 03/30/17 09:59 Artificial Tears (Akwa-Tears) 2 drop Q2H PRN BOTH EYES Dry Eyes 03/15/17 16:30 04/14/17 16:29 03/22/17 11:43 Clotrimazole (Lotrimin) 1 applic EVERY 12 HOURS TOPIC 03/20/17 21:00 04/19/17 20:59 03/25/17 08:49 Dextrose (Dextrose 50%) STAT PRN IV Hypoglycemia 03/12/17 10:00 04/11/17 09:59 Famotidine (Pepcid I.v.) 20 mg DAILY IVP 03/13/17 10:00 04/12/17 09:59 03/25/17 08:48 Heparin Sodium (Porcine) (Heparin 5000 units/ml) 5,000 units EVERY 12 HOURS SUBQ 03/12/17 09:00 04/11/17 08:59 03/25/17 08:48 Insulin Aspart (NovoLOG) Q4H SUBQ 03/12/17 12:00 04/11/17 11:59 03/25/17 11:35 Insulin Detemir (Levemir) 5 units DAILY SUBQ 03/15/17 14:00 04/14/17 13:59 03/25/17 08:47 Norepinephrine Bitartrate 4 mg/ Dextrose 254 ml @ 0 mls/hr Q24H IV 03/12/17 07:30 04/11/17 07:29 Ondansetron HCl (Zofran) 4 mg Q6H PRN IVP Nausea & Vomiting 03/12/17 07:30 04/11/17 07:29 Polyethylene Glycol (Miralax) 17 gm DAILYPRN PRN ORAL Constipation 03/12/17 07:30 04/11/17 07:29 Vancomycin HCl (Vanco rx to dose) 1 ea DAILY PRN MISC PER RX PROTOCOL 03/13/17 11:30 04/12/17 11:29 Vancomycin/Sodium Chloride 250 ml @ 166.667 mls/hr Q24H IVPB 03/16/17 17:00 03/26/17 16:59 03/24/17 16:08 Paul Amaya M.D. Mar 25, 2017 15:37
--- NOTE | 2017-03-25 15:39 | Immediate Post-Op Evaluation ---
Immediate Post-Op Evalulation Immediate Post-Op Evalulation Procedure: Temporary Pacemaker Date of Evaluation: Mar 25, 2017 Time of Evaluation: 19:48 IV Fluids: 500 LR Blood Products: 0 Estimated Blood Loss: 50 Urinary Output: 0 Blood Pressure Systolic: 171 Blood Pressure Diastolic: 73 Pulse Rate: 54 Respiratory Rate: 20 - Mech Vent O2 Sat by Pulse Oximetry: 100 Temperature (Fahrenheit): 98.4 Pain Score (1-10): 0 Nausea: No Vomiting: No Complications 0 Patient Status: no response, ventilated - Intubated ICU, none Hydration Status: adequate Dru Gram Ancef IV Given Within 1 Hr of Incision: Yes Time Given: 16:06 Ashwin Bartlett MD Mar 25, 2017 15:39
--- NOTE | 2017-03-25 15:39 | Anethesia Preoperative Eval ---
Anesthesia Pre-op PMH/ROS General Date of Evaluation: Mar 25, 2017 Time of Evaluation: 15:06 Anesthesiologist: Dhruv ASA Score: ASA 4 Mallampati Score Class I : Soft palate, uvula, fauces, pillars visible Class II: Soft palate, uvula, fauces visible Class III: Soft palate, base of uvula visible Class IV: Only hard plate visible Mallampati Classification: Class III - Intubated Surgeon: Emani Diagnosis: 2:1 AV block, Bradycardia Surgical Procedure: Temporary Pacemaker Anesthesia History: none Family History: no anesthesia problems Allergies: Coded Allergies: LORAZEPAM (Unverified Allergy, Unknown, 03/02/17) METOCLOPRAMIDE (Unverified Allergy, Unknown, 03/02/17) QUETIAPINE (Unverified Allergy, Unknown, 03/02/17) ZOLPIDEM (Unverified Allergy, Unknown, 03/02/17) Medications: see eMAR Past Medical History Cardiovascular: Reports: HTN, CAD, other - HL Pulmonary: Reports: other - Vent Failure, For Trach Tomorrow Gastrointestinal/Genitourinary: Reports: GERD, other - UTI Neurologic/Psychiatric: Reports: dementia, CVA Endocrine: Reports: DM Hematology/Immune: Reports: anemia Musculoskeletal/Integumentary: Reports: other - Facial Fractures PSxH Narrative: Facial Fractures Anesthesia Pre-op Phys. Exam Physician Exam Last Vital Signs Date Time Temp Pulse Resp B/P (MAP) Pulse Ox O2 Delivery O2 Flow Rate FiO2 03/25/17 15:22 49 18 30 03/25/17 14:00 149/51 100 Mechanical Ventilator 03/25/17 12:00 98.1 Constitutional: NAD Neurologic: CN 2-12 intact Cardiovascular: RRR Respiratory: CTA Gastrointestinal: S/NT/ND Airway Exam Mallampati Score: Class II MO: limited ROM: limited Teeth: missing Anesthesia Pre-op A/P Labs Hematology Test 03/25/17 03:20 White Blood Count 7.4 K/UL (4.8-10.8) Red Blood Count 2.72 M/UL (4.20-5.40) L Hemoglobin 9.4 G/DL (12.0-16.0) L Hematocrit 27.9 % (37.0-47.0) L Mean Corpuscular Volume 103 FL (80-99) H Mean Corpuscular Hemoglobin 34.6 PG (27.0-31.0) H Mean Corpuscular Hemoglobin Concent 33.7 G/DL (32.0-36.0) Red Cell Distribution Width 14.8 % (11.6-14.8) Platelet Count 270 K/UL (150-450) Mean Platelet Volume 9.1 FL (6.5-10.1) Neutrophils (%) (Auto) 71.8 % (45.0-75.0) Lymphocytes (%) (Auto) 15.5 % (20.0-45.0) L Monocytes (%) (Auto) 7.4 % (1.0-10.0) Eosinophils (%) (Auto) 3.6 % (0.0-3.0) H Basophils (%) (Auto) 1.7 % (0.0-2.0) Coagulation Test 03/25/17 03:20 Prothrombin Time 10.2 SEC (9.30-11.50) Prothromb Time International Ratio 1.0 (0.9-1.1) Activated Partial Thromboplast Time 26 SEC (23-33) Chemistry Test 03/25/17 03:20 Sodium Level 138 mEQ/L (135-145) Potassium Level 4.4 mEQ/L (3.4-4.9) Chloride Level 102 mEQ/L (98-107) Carbon Dioxide Level 23 mEQ/L (20-30) Anion Gap 13 (5-15) Blood Urea Nitrogen 31 mg/dL (7-23) H Creatinine 0.7 mg/dL (0.5-0.9) Estimat Glomerular Filtration Rate mL/min (>60) Glucose Level 136 mg/dL (74-106) H Calcium Level 9.3 mg/dL (8.6-10.2) Phosphorus Level 3.7 mg/dL (2.5-4.8) Magnesium Level 1.8 mg/dL (1.7-2.5) Total Bilirubin < 0.2 mg/dL (0.0-1.2) Aspartate Amino Transf (AST/SGOT) 25 U/L (5-40) Alanine Aminotransferase (ALT/SGPT) 12 U/L (3-33) Alkaline Phosphatase 109 U/L (35-104) H Total Protein 5.8 g/dL (6.6-8.7) L Albumin 2.3 g/dL (3.5-5.2) L Globulin 3.5 g/dL Albumin/Globulin Ratio 0.6 (1.0-2.7) L Risk Assessment & Plan Assessment: ASA 4E Plan: Standby Anesthesia Status Change Before Surgery: No Pre-Antibiotics Dru Gram Ancef IV Given Within 1 Hr of Incision: Yes Time Given: 16:06 Ashwin Bartlett MD Mar 25, 2017 15:39
--- NOTE | 2017-03-25 19:13 | Pre-Procedure Note/Attestation ---
Pre-Procedure Note/Attestation Complete Prior to Procedure Planned Procedure: right Indications for Procedure Pre-Operative Diagnosis: AV block Attestation I attest that I discussed the nature of the procedure; its benefits; risks and complications; and alternatives (and the risks and benefits of such alternatives ), prior to the procedure, with the patient (or the patient's legal insurance verification representative). I attest that, if there was a reasonable possibility of needing a blood transfusion, the patient (or the patient's legal insurance verification representative) was given the [facility] standardized written summary, pursuant to the [place] Blood Safety Act ([place] Health and Safety Code # 1645, as amended). I attest that I re-evaluated the patient just prior to the surgery and that there has been no change in the patient's H&P, except as documented below: MONICO HAMMER Mar 25, 2017 19:13
--- NOTE | 2017-03-25 19:15 | Operative Note - PDOC ---
Operative Note Operative Note Pre-op Diagnosis: AV block Post-op Diagnosis: same as pre-op Specimen: none Drains: none Implant(s) used?: Yes Indications for Procedure av blvok Description of Procedure right femiral MONICO Perez Mar 25, 2017 19:15
[2017-03-25] MEDS: Vancomycin 750mg/NS 250ml 250 ML IVPB SCH (20:16)
--- NOTE | 2017-03-25 21:58 | Cardiology Progress Note ---
Subjective Subjective [id number] Objective Last 24 Hour Vital Signs Date Time Temp Pulse Resp B/P (MAP) Pulse Ox O2 Delivery O2 Flow Rate FiO2 03/25/17 21:15 57 18 30 03/25/17 21:00 52 18 174/41 100 Mechanical Ventilator 30 03/25/17 20:30 51 18 138/41 100 Mechanical Ventilator 30 03/25/17 20:00 98.5 51 18 130/41 100 Mechanical Ventilator 30 03/25/17 20:00 50 03/25/17 20:00 30 03/25/17 19:33 54 20 100 03/25/17 19:30 51 18 144/42 100 Mechanical Ventilator 30 03/25/17 19:27 55 18 30 03/25/17 15:50 30 03/25/17 15:22 49 18 30 03/25/17 15:00 58 18 137/48 100 Mechanical Ventilator 30 03/25/17 14:00 54 18 149/51 100 Mechanical Ventilator 30 03/25/17 13:00 42 18 134/46 100 Mechanical Ventilator 30 03/25/17 12:37 53 18 30 03/25/17 12:00 52 03/25/17 12:00 30 03/25/17 12:00 98.1 58 18 138/42 100 Mechanical Ventilator 03/25/17 11:23 50 18 30 03/25/17 11:00 61 19 136/41 100 Mechanical Ventilator 30 03/25/17 10:35 33 03/25/17 10:00 59 19 120/35 100 Mechanical Ventilator 30 03/25/17 09:25 36 18 30 03/25/17 09:00 58 18 124/31 100 Mechanical Ventilator 30 03/25/17 08:45 111/33 03/25/17 08:00 98.0 52 18 111/33 100 Mechanical Ventilator 30 03/25/17 08:00 73 03/25/17 08:00 30 03/25/17 07:15 50 22 30 03/25/17 07:00 47 18 122/35 100 Mechanical Ventilator 30 03/25/17 06:00 60 18 114/30 100 Mechanical Ventilator 30 03/25/17 05:00 49 22 144/38 100 Mechanical Ventilator 30 03/25/17 04:59 40 22 30 03/25/17 04:00 30 03/25/17 04:00 98.9 41 18 118/70 100 Mechanical Ventilator 30 03/25/17 04:00 49 03/25/17 03:30 42 18 30 03/25/17 03:00 65 22 113/54 100 Mechanical Ventilator 30 03/25/17 02:00 46 18 116/69 100 Mechanical Ventilator 30 03/25/17 01:30 37 18 30 03/25/17 01:00 56 18 121/38 100 Mechanical Ventilator 30 03/25/17 00:00 98.7 43 18 127/35 100 Mechanical Ventilator 30 03/24/17 23:30 34 18 30 03/24/17 23:00 57 18 138/37 100 Mechanical Ventilator 30 03/24/17 22:00 57 18 125/44 100 Mechanical Ventilator 30 Intake and Output 03/25/17 03/26/17 19:00 07:00 Intake Total 455 ml Output Total 250 ml 30 ml Balance 205 ml -30 ml Free Water 50 ml Tube Feeding 405 ml Output Urine Total 250 ml 30 ml Laboratory Tests Test 03/25/17 03:20 White Blood Count 7.4 K/UL (4.8-10.8) Red Blood Count 2.72 M/UL (4.20-5.40) L Hemoglobin 9.4 G/DL (12.0-16.0) L Hematocrit 27.9 % (37.0-47.0) L Mean Corpuscular Volume 103 FL (80-99) H Mean Corpuscular Hemoglobin 34.6 PG (27.0-31.0) H Mean Corpuscular Hemoglobin Concent 33.7 G/DL (32.0-36.0) Red Cell Distribution Width 14.8 % (11.6-14.8) Platelet Count 270 K/UL (150-450) Mean Platelet Volume 9.1 FL (6.5-10.1) Neutrophils (%) (Auto) 71.8 % (45.0-75.0) Lymphocytes (%) (Auto) 15.5 % (20.0-45.0) L Monocytes (%) (Auto) 7.4 % (1.0-10.0) Eosinophils (%) (Auto) 3.6 % (0.0-3.0) H Basophils (%) (Auto) 1.7 % (0.0-2.0) Prothrombin Time 10.2 SEC (9.30-11.50) Prothromb Time International Ratio 1.0 (0.9-1.1) Activated Partial Thromboplast Time 26 SEC (23-33) Sodium Level 138 mEQ/L (135-145) Potassium Level 4.4 mEQ/L (3.4-4.9) Chloride Level 102 mEQ/L (98-107) Carbon Dioxide Level 23 mEQ/L (20-30) Anion Gap 13 (5-15) Blood Urea Nitrogen 31 mg/dL (7-23) H Creatinine 0.7 mg/dL (0.5-0.9) Estimat Glomerular Filtration Rate mL/min (>60) Glucose Level 136 mg/dL (74-106) H Calcium Level 9.3 mg/dL (8.6-10.2) Phosphorus Level 3.7 mg/dL (2.5-4.8) Magnesium Level 1.8 mg/dL (1.7-2.5) Total Bilirubin < 0.2 mg/dL (0.0-1.2) Aspartate Amino Transf (AST/SGOT) 25 U/L (5-40) Alanine Aminotransferase (ALT/SGPT) 12 U/L (3-33) Alkaline Phosphatase 109 U/L (35-104) H Total Protein 5.8 g/dL (6.6-8.7) L Albumin 2.3 g/dL (3.5-5.2) L Globulin 3.5 g/dL Albumin/Globulin Ratio 0.6 (1.0-2.7) L MONICO HAMMER Mar 25, 2017 21:58
[2017-03-26] VITALS (22 sets, daily range): BP systolic 103–147; BP diastolic 36–63
[2017-03-26] MEDS: NovoLOG Insulin Flexpen SUBQ SCH ×6 (00:05→20:00)
--- NOTE | 2017-03-26 02:30 | General Progress Note ---
Assessment/Plan Status: unchanged Assessment/Plan 1. Leukocytosis, secondary to underlying sepsis. Continue monitoring. --> Has been resolved --> WBC 8.0 2. Anemia secondary to chronic disease.. --> transfuse if hgb is less than 8 or symptomatic --> monitor counts --> has been stable >8 --> occult blood negative and hiv panel negative 4. Coagulopathy, potentially secondary to underlying sepsis as well. --> PTT and prothrombin time now WNL --> continue to monitor 5. Methicillin-resistant Staphylococcus aureus colonization. 6. Respiratory failure, status post intubation. 7. Acute kidney injury. --> nephrology following Subjective Date patient seen: Mar 25, 2017 Time patient seen: 14:00 Hematologic/Lymphatic: Reports: anemia Allergies: Coded Allergies: LORAZEPAM (Unverified Allergy, Unknown, 03/02/17) METOCLOPRAMIDE (Unverified Allergy, Unknown, 03/02/17) QUETIAPINE (Unverified Allergy, Unknown, 03/02/17) ZOLPIDEM (Unverified Allergy, Unknown, 03/02/17) Subjective no bleeding, afebrile, lethargic. No acute distress Objective Last 24 Hour Vital Signs Date Time Temp Pulse Resp B/P (MAP) Pulse Ox O2 Delivery O2 Flow Rate FiO2 03/26/17 01:29 56 18 30 03/26/17 01:00 54 18 136/40 100 Mechanical Ventilator 03/26/17 00:00 52 03/26/17 00:00 98.7 52 18 136/50 100 Mechanical Ventilator 03/26/17 00:00 30 03/25/17 23:16 52 18 30 03/25/17 23:00 52 18 139/41 100 Mechanical Ventilator 03/25/17 22:00 52 18 146/44 100 Mechanical Ventilator 03/25/17 21:15 57 18 30 03/25/17 21:00 52 18 174/41 100 Mechanical Ventilator 03/25/17 20:30 51 18 138/41 100 Mechanical Ventilator 03/25/17 20:00 98.5 51 18 130/41 100 Mechanical Ventilator 03/25/17 20:00 50 03/25/17 20:00 30 03/25/17 19:33 54 20 100 03/25/17 19:30 51 18 144/42 100 Mechanical Ventilator 30 03/25/17 19:27 55 18 30 03/25/17 15:50 30 03/25/17 15:22 49 18 30 03/25/17 15:00 58 18 137/48 100 Mechanical Ventilator 03/25/17 14:00 54 18 149/51 100 Mechanical Ventilator 03/25/17 13:00 42 18 134/46 100 Mechanical Ventilator 03/25/17 12:37 53 18 30 03/25/17 12:00 52 03/25/17 12:00 30 03/25/17 12:00 98.1 58 18 138/42 100 Mechanical Ventilator 03/25/17 11:23 50 18 30 03/25/17 11:00 61 19 136/41 100 Mechanical Ventilator 03/25/17 10:35 33 03/25/17 10:00 59 19 120/35 100 Mechanical Ventilator 03/25/17 09:25 36 18 30 03/25/17 09:00 58 18 124/31 100 Mechanical Ventilator 03/25/17 08:45 111/33 03/25/17 08:00 98.0 52 18 111/33 100 Mechanical Ventilator 03/25/17 08:00 73 03/25/17 08:00 30 03/25/17 07:15 50 22 30 03/25/17 07:00 47 18 122/35 100 Mechanical Ventilator 03/25/17 06:00 60 18 114/30 100 Mechanical Ventilator 03/25/17 05:00 49 22 144/38 100 Mechanical Ventilator 03/25/17 04:59 40 22 30 03/25/17 04:00 30 03/25/17 04:00 98.9 41 18 118/70 100 Mechanical Ventilator 03/25/17 04:00 49 03/25/17 03:30 42 18 30 03/25/17 03:00 65 22 113/54 100 Mechanical Ventilator 30 Laboratory Tests 03/25/17 03:20: White Blood Count 7.4, Red Blood Count 2.72L, Hemoglobin 9.4L, Hematocrit 27.9L , Mean Corpuscular Volume 103H, Mean Corpuscular Hemoglobin 34.6H, Mean Corpuscular Hemoglobin Concent 33.7, Red Cell Distribution Width 14.8, Platelet Count 270, Mean Platelet Volume 9.1, Neutrophils (%) (Auto) 71.8, Lymphocytes (% ) (Auto) 15.5L, Monocytes (%) (Auto) 7.4, Eosinophils (%) (Auto) 3.6H, Basophils (%) (Auto) 1.7, Prothrombin Time 10.2, Prothromb Time International Ratio 1.0, Activated Partial Thromboplast Time 26, Sodium Level 138, Potassium Level 4.4, Chloride Level 102, Carbon Dioxide Level 23, Anion Gap 13, Blood Urea Nitrogen 31H, Creatinine 0.7, Estimat Glomerular Filtration Rate , Glucose Level 136H, Calcium Level 9.3, Phosphorus Level 3.7, Magnesium Level 1.8, Total Bilirubin < 0.2, Aspartate Amino Transf (AST/SGOT) 25, Alanine Aminotransferase (ALT/SGPT) 12, Alkaline Phosphatase 109H, Total Protein 5.8L, Albumin 2.3L, Globulin 3.5, Albumin/Globulin Ratio 0.6L Height (Feet): 5 Height (Inches): 2.00 Weight (Pounds): 131 General Appearance: lethargic Cardiovascular: bradycardia Respiratory/Chest: decreased breath sounds Abdomen: normal bowel sounds, non tender, other - ++ G tube Saul Luque Mar 26, 2017 02:30
--- NOTE | 2017-03-26 04:00 | Consultation ---
DATE OF CONSULTATION: 03/25/2017 CARDIOLOGY CONSULTATION This Cardiology consult was done as a coverage for Dr. Larry Mace. HISTORY OF PRESENT ILLNESS: History of present illness taken from reviewing the chart, discussion with the nursing, and the family. The patient herself is intubated and unresponsive. She was admitted on 03/12/2017 with elevated white count with diagnosis of sepsis and pneumonia, was intubated, and since that time, she remains intubated. The patient is unresponsive. According to the family, her mental status was getting worse during this admission, however, she probably has baseline dementia. She was admitted previously on 03/02/2017 and discharged on 03/08/2017 and so shortly after that, she was readmitted. PAST MEDICAL HISTORY: Significant for dementia, hypertension, and diabetes. PAST SURGICAL HISTORY: Remarkable for central line placement in the past and also hysterectomy, which is remote. ALLERGIES: The patient is allergic to lorazepam, metoclopramide, quetiapine, and Zolpidem. HABITS: The family denies any history of drinking, smoking, or drug abuse. SOCIAL HISTORY: She is care dependent and she was care dependent previously for significant amount of time. PHYSICAL EXAMINATION: GENERAL: The patient is unresponsive. She sometimes moves around and she is agitated, but there is no evidence that she interacts with the environment at all. She does not open her eyes. VITAL SIGNS: Her blood pressure at the time when I saw her was 130/80 and her heart rate was varying between 50 to 34 beats per minute. The temperature was normal and saturation on 30% FiO2 was 100%. HEENT: She does not open her eyes and there is no evidence of facial droop. NECK: Supple. Neck veins are not distended. LUNGS: She has scattered rales and crackles bilaterally with no significant masses. HEART: Irregular with accentuated A2. ABDOMEN: Soft. There is postsurgical scar. Abdomen is distended and nontender. EXTREMITIES: Lower extremity contractures. MUSCULOSKELETAL: Muscle wasting and evidence of hip deformity suggestive of bedrest for significant amount of time. Diagnostic Data: Her EKG showed, one EKG which I had available for review when I started seeing the patient was from 03/12/2017 and it showed 2:1 AV block with right bundle and right axis. Today's EKG showed intermittent 3:2 AV block with right bundle as well. On telemetry, the patient had episodes of 3:2 complete with a high-degree AV block when there was 3 Ps there was just 1 QRS and a heart rate was 35 to 37. Her blood pressure at that time was stable and the other labs are all reviewed. MICROBIOLOGY: The microbiology show that she had blood cultures positive on 03/12/2017 and that was Streptococcus coagulase negative and she also had in the sputum other type of Staphylococcus aureus. Her labs available for today revealed hemoglobin 9.4, WBC 7.4, and platelets 270,000. Her creatinine is 0.7. Her BUN is 13. Her potassium 4.4 and the sodium 148. There is no recent urinalysis. There was echocardiogram, which was done on 03/12/2017 and that echocardiogram revealed normal left ventricular ejection fraction. No wall motion abnormalities commented on and valves not very well visualized. Her chest x-ray, the most recent was done on 03/22/2017, and there was bilateral infiltrates, which are unchanged from previous chest x-ray. 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 I looked at the previous tracings and I did not see evidence of AV block since the previous admission, however, on the previous ECG, it is clearly 2:1 AV block, although the heart rate is preserved. The concern is that her worsening of AV block could be due to endocarditis in this setting and therefore, the permanent pacemaker at this time is not indicated. She should undergo transesophageal echocardiogram prior to making decision whether she is a candidate for permanent pacemaker. In the meantime, we are going to go ahead and proceed with the temporary pacemaker, although overall the patient is stable at this time and most of the time, her heart rate is normal. However, she has concerning episodes of severe bradycardia and there is no guarantee that is not going to quickly progress and so we are going to go ahead and proceed with the temporary pacemaker today. That was discussed with the family with the primary care physician and with the ICU team. Thank you very much for your consultation. That was a ICU consult, which took approximately 1 hour and 15 minutes. Martina Mary M.D. DR: DONAVON JOB#: [id number] CC:
[2017-03-26] MEDS: Famotidine 20 MG/ 2ML VIAL IVP SCH (08:21)
[2017-03-26] MEDS: Levemir Flexpen SUBQ SCH (08:22)
[2017-03-26] MEDS: Heparin 5000 units/ml inj SUBQ SCH ×2 (08:25→20:56)
--- NOTE | 2017-03-26 09:13 | Cardiology Progress Note ---
Assessment/Plan Assessment/Plan av block with persistent recetn septic shock resolving Bibasilar staph aureus pneumonia, to complete D14 IV vanc on 03/26/17 Acute respiratory failure. Acute renal failure, prerenal, sp Diabetes type 2 with hyperglycemia and proteinuria Dementia. Methicillin resistant Staphylococcus aureus colonization. lactic acidosis, resolved CoNS bacteremia vs contamination (03/12), s/p >7D IV vanc. consider treated. no sig bacteremia need id clearance to consider perm pacing in near future will have ep see pt pacing wire placement was rather difficult i do not want to jeopardize loss of capture with movements / transfer seems almost finished with abx and coag neg staph bacteremia felt to be contaminant and possible treated d/w icu staff keep in icu avoid movemtn for now until plans finalized Subjective ROS Limited/Unobtainable: Yes Objective Last 24 Hour Vital Signs Date Time Temp Pulse Resp B/P (MAP) Pulse Ox O2 Delivery O2 Flow Rate FiO2 03/26/17 08:44 68 18 30 03/26/17 08:00 30 03/26/17 08:00 98.6 62 18 122/36 100 Mechanical Ventilator 30 03/26/17 08:00 52 03/26/17 07:30 112/94 03/26/17 07:17 48 18 30 03/26/17 07:00 61 18 124/43 100 Mechanical Ventilator 03/26/17 06:00 57 18 112/47 100 Mechanical Ventilator 03/26/17 05:29 52 18 30 03/26/17 05:00 62 18 109/54 100 Mechanical Ventilator 03/26/17 04:00 30 03/26/17 04:00 97.7 67 18 119/38 100 Mechanical Ventilator 03/26/17 04:00 52 03/26/17 03:24 66 18 30 03/26/17 03:00 62 18 125/43 100 Mechanical Ventilator 03/26/17 02:00 52 18 130/55 100 Mechanical Ventilator 03/26/17 01:29 56 18 30 03/26/17 01:00 54 18 136/40 100 Mechanical Ventilator 30 03/26/17 00:00 52 03/26/17 00:00 98.7 52 18 136/50 100 Mechanical Ventilator 03/26/17 00:00 30 03/25/17 23:16 52 18 30 03/25/17 23:00 52 18 139/41 100 Mechanical Ventilator 03/25/17 22:00 52 18 146/44 100 Mechanical Ventilator 03/25/17 21:15 57 18 30 03/25/17 21:00 52 18 174/41 100 Mechanical Ventilator 03/25/17 20:30 51 18 138/41 100 Mechanical Ventilator 03/25/17 20:00 98.5 51 18 130/41 100 Mechanical Ventilator 03/25/17 20:00 50 03/25/17 20:00 30 03/25/17 19:33 54 20 100 03/25/17 19:30 51 18 144/42 100 Mechanical Ventilator 03/25/17 19:27 55 18 30 03/25/17 15:50 30 03/25/17 15:22 49 18 30 03/25/17 15:00 58 18 137/48 100 Mechanical Ventilator 03/25/17 14:00 54 18 149/51 100 Mechanical Ventilator 03/25/17 13:00 42 18 134/46 100 Mechanical Ventilator 03/25/17 12:37 53 18 30 03/25/17 12:00 52 03/25/17 12:00 30 03/25/17 12:00 98.1 58 18 138/42 100 Mechanical Ventilator 03/25/17 11:23 50 18 30 03/25/17 11:00 61 19 136/41 100 Mechanical Ventilator 03/25/17 10:35 33 03/25/17 10:00 59 19 120/35 100 Mechanical Ventilator 03/25/17 09:25 36 18 30 General Appearance: on vent, patient on isolation Neck: supple Cardiovascular: normal rate, regular rhythm Respiratory/Chest: lungs clear, normal breath sounds - ant Abdomen: non tender, soft Extremities: no swelling - there is no swelling in the leg adn feet Intake and Output 03/26/17 03/27/17 19:00 07:00 Intake Total 50 ml Output Total 30 ml Balance 20 ml Free Water 50 ml Output Urine Total 30 ml SYLVIA HARRIS Mar 26, 2017 09:13
[2017-03-26 09:26] LABS: ABG ALLEN TEST POSITIVE; ABG BASE EXCESS 0.4; ABG PCO2 28.1 mmHg (35.0-45.0)
--- NOTE | 2017-03-26 09:37 | Pulmonolgy Critical Care Note ---
Critical Care - Asmt/Plan Problems: (1) Respiratory failure requiring intubation (2) Pneumonia (3) Anemia (4) Advanced dementia (5) Feeding by G-tube (6) Severe sepsis Respiratory: monitor respiratory rate, adjust FIO2, CXR Cardiac: continue to monitor HR/BP, other - will need permanent pace maker Renal: F/U I&O, keep IV fluid Infectious Disease: check cultures Gastrointestinal: continue feedings/current rate, hold feedings Endocrine: check HgA1C, continue sliding scale insulin Hematologic: monitor H/H, transfuse if hgb<8.5 Neurologic: PRN Ativan, PRN Morphine, keep patient comfortable Prophylaxis: Protonix, Heparin Disposition: keep in ICU Notes Reviewed: dry box tender, cardio Discussed with: nurses, consultants, 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 - Objective Last 24 Hour Vital Signs Date Time Temp Pulse Resp B/P (MAP) Pulse Ox O2 Delivery O2 Flow Rate FiO2 03/26/17 09:00 63 18 122/54 100 Mechanical Ventilator 30 03/26/17 08:44 68 18 30 03/26/17 08:00 30 03/26/17 08:00 98.6 62 18 122/36 100 Mechanical Ventilator 30 03/26/17 08:00 52 03/26/17 07:30 112/94 03/26/17 07:17 48 18 30 03/26/17 07:00 61 18 124/43 100 Mechanical Ventilator 30 03/26/17 06:00 57 18 112/47 100 Mechanical Ventilator 30 03/26/17 05:29 52 18 30 03/26/17 05:00 62 18 109/54 100 Mechanical Ventilator 03/26/17 04:00 30 03/26/17 04:00 97.7 67 18 119/38 100 Mechanical Ventilator 30 03/26/17 04:00 52 03/26/17 03:24 66 18 30 03/26/17 03:00 62 18 125/43 100 Mechanical Ventilator 30 03/26/17 02:00 52 18 130/55 100 Mechanical Ventilator 30 03/26/17 01:29 56 18 30 03/26/17 01:00 54 18 136/40 100 Mechanical Ventilator 30 03/26/17 00:00 52 03/26/17 00:00 98.7 52 18 136/50 100 Mechanical Ventilator 30 03/26/17 00:00 30 03/25/17 23:16 52 18 30 03/25/17 23:00 52 18 139/41 100 Mechanical Ventilator 30 03/25/17 22:00 52 18 146/44 100 Mechanical Ventilator 03/25/17 21:15 57 18 30 03/25/17 21:00 52 18 174/41 100 Mechanical Ventilator 03/25/17 20:30 51 18 138/41 100 Mechanical Ventilator 03/25/17 20:00 98.5 51 18 130/41 100 Mechanical Ventilator 03/25/17 20:00 50 03/25/17 20:00 30 03/25/17 19:33 54 20 100 03/25/17 19:30 51 18 144/42 100 Mechanical Ventilator 03/25/17 19:27 55 18 30 03/25/17 15:50 30 03/25/17 15:22 49 18 30 03/25/17 15:00 58 18 137/48 100 Mechanical Ventilator 03/25/17 14:00 54 18 149/51 100 Mechanical Ventilator 03/25/17 13:00 42 18 134/46 100 Mechanical Ventilator 03/25/17 12:37 53 18 30 03/25/17 12:00 52 03/25/17 12:00 30 03/25/17 12:00 98.1 58 18 138/42 100 Mechanical Ventilator 03/25/17 11:23 50 18 30 03/25/17 11:00 61 19 136/41 100 Mechanical Ventilator 03/25/17 10:35 33 03/25/17 10:00 59 19 120/35 100 Mechanical Ventilator 30 Status: awake Condition: critical HEENT: atraumatic Neck: full ROM Lungs: chest wall tender Heart: HR/BP stable, regular Abdomen: non-tender, active bowel sounds, feeding tube Extremities: no C/C/E Decubiti: location, stage Accucheck: 154 Critical Care - Subjective ROS Limited/Unobtainable: Yes ICU Day: 14 Interval Events: she got a temporary pace maker yesterday. Condition: critical EKG Rhythm: Sinus Bradycardia FI02: 30 Vent Support Breath Rate: 18 Vent Support Mode: AC Vent Tidal Volume: 500 Sputum Amount: Small PEEP: 5.0 PIP: 30 Tube Feeding Amount: 45 I&O: Intake and Output 03/26/17 03/27/17 19:00 07:00 Intake Total 50 ml Output Total 60 ml Balance -10 ml Free Water 50 ml Output Urine Total 60 ml CXR: no change, ET tube in place. ET-Tube: 7.0 ET Position: 21 Labs: Laboratory Tests Test 03/26/17 08:45 Arterial Blood pH 7.527 (7.350-7.450) Arterial Blood Partial Pressure CO2 28.1 mmHg (35.0-45.0) L Arterial Blood Partial Pressure O2 80.0 mmHg (75.0-100.0) Arterial Blood HCO3 22.8 mmol/L (22.0-26.0) Arterial Blood Oxygen Saturation 95.6 % (92.0-98.0) Arterial Blood Base Excess 0.4 Shaun Test Positive ZAIRA ROSALES Mar 26, 2017 09:37
[2017-03-26 09:53] LABS: EOSINOPHILS % (AUTO) 1.8 % (0.0-3.0); LYMPHOCYTES % (AUTO) 15.2 % (20.0-45.0); MEAN CORPUSCULAR HEMOGLOBIN 34.8 PG (27.0-31.0); MEAN CORPUSCULAR HGB CONC 34.2 G/DL (32.0-36.0); MEAN CORPUSCULAR VOLUME 102 FL (80-99); MEAN PLATELET VOLUME 9.2 FL (6.5-10.1); MONOCYTES % (AUTO) 2.9 % (1.0-10.0); NEUTROPHILS % (AUTO) 79.2 % (45.0-75.0); PLATELET COUNT 231 K/UL (150-450); RED BLOOD COUNT 2.53 M/UL (4.20-5.40); RED CELL DISTRIBUTION WIDTH 14.6 % (11.6-14.8); WHITE BLOOD COUNT 9.2 K/UL (4.8-10.8)
[2017-03-26 10:12] LABS: ANION GAP 11 (5-15); CALCIUM 9.3 mg/dL (8.6-10.2); CARBON DIOXIDE 23 mEQ/L (20-30); CHLORIDE 102 mEQ/L (98-107); CREATININE 0.8 mg/dL (0.5-0.9); HEMOLYSIS 4; SODIUM 136 mEQ/L (135-145)
--- NOTE | 2017-03-26 11:12 | General Progress Note ---
Progress Note Progress Note Surgery: planned tracheostomy held for now. bradycardia yesterday requiring emergent pacing. will need more definite pacing as per cardiology. will hold on trach until stable from cardiac standpoint. Ranjan Troy Mar 26, 2017 11:12
--- NOTE | 2017-03-26 12:49 | General Progress Note ---
Assessment/Plan Status: stable - from renal stand Assessment/Plan Respiratory failure requiring intubation Severe sepsis secondary to pneumonia, resolving UTI Acute cystitis without hematuria Pneumonia, non cavitary, w/o effusion Dementia Acute renal failure , Dehydration Hypoxemic respiratory failure Type 2 diabetes mellitus with hyperglycemia Proteinuria Plan: due Trach 03/26, postponed due to low HR and temporary pacer Pulm support- Monitor renal parameters Urine studies- Avoid Nephrotoxics- Per Orders Subjective ROS Limited/Unobtainable: Yes Allergies: Coded Allergies: LORAZEPAM (Unverified Allergy, Unknown, 03/02/17) METOCLOPRAMIDE (Unverified Allergy, Unknown, 03/02/17) QUETIAPINE (Unverified Allergy, Unknown, 03/02/17) ZOLPIDEM (Unverified Allergy, Unknown, 03/02/17) Objective Last 24 Hour Vital Signs Date Time Temp Pulse Resp B/P (MAP) Pulse Ox O2 Delivery O2 Flow Rate FiO2 03/26/17 12:00 98.3 62 18 130/45 100 Mechanical Ventilator 03/26/17 12:00 30 03/26/17 11:04 52 18 30 03/26/17 11:00 56 18 103/40 100 Mechanical Ventilator 30 03/26/17 10:00 61 18 122/39 100 Mechanical Ventilator 30 03/26/17 09:00 63 18 122/54 100 Mechanical Ventilator 03/26/17 08:44 68 18 30 03/26/17 08:00 30 03/26/17 08:00 98.6 62 18 122/36 100 Mechanical Ventilator 03/26/17 08:00 52 03/26/17 07:30 112/94 03/26/17 07:17 48 18 30 03/26/17 07:00 61 18 124/43 100 Mechanical Ventilator 03/26/17 06:00 57 18 112/47 100 Mechanical Ventilator 03/26/17 05:29 52 18 30 03/26/17 05:00 62 18 109/54 100 Mechanical Ventilator 03/26/17 04:00 30 03/26/17 04:00 97.7 67 18 119/38 100 Mechanical Ventilator 30 03/26/17 04:00 52 03/26/17 03:24 66 18 30 03/26/17 03:00 62 18 125/43 100 Mechanical Ventilator 03/26/17 02:00 52 18 130/55 100 Mechanical Ventilator 30 03/26/17 01:29 56 18 30 03/26/17 01:00 54 18 136/40 100 Mechanical Ventilator 30 03/26/17 00:00 52 03/26/17 00:00 98.7 52 18 136/50 100 Mechanical Ventilator 30 03/26/17 00:00 30 03/25/17 23:16 52 18 30 03/25/17 23:00 52 18 139/41 100 Mechanical Ventilator 03/25/17 22:00 52 18 146/44 100 Mechanical Ventilator 30 03/25/17 21:15 57 18 30 03/25/17 21:00 52 18 174/41 100 Mechanical Ventilator 30 03/25/17 20:30 51 18 138/41 100 Mechanical Ventilator 30 03/25/17 20:00 98.5 51 18 130/41 100 Mechanical Ventilator 03/25/17 20:00 50 03/25/17 20:00 30 03/25/17 19:33 54 20 100 03/25/17 19:30 51 18 144/42 100 Mechanical Ventilator 30 03/25/17 19:27 55 18 30 03/25/17 15:50 30 03/25/17 15:22 49 18 30 03/25/17 15:00 58 18 137/48 100 Mechanical Ventilator 03/25/17 14:00 54 18 149/51 100 Mechanical Ventilator 03/25/17 13:00 42 18 134/46 100 Mechanical Ventilator 30 Intake and Output 03/26/17 03/27/17 19:00 07:00 Intake Total 50 ml Output Total 160 ml Balance -110 ml Free Water 50 ml Output Urine Total 160 ml Laboratory Tests 03/26/17 08:45: Arterial Blood pH 7.527H, Arterial Blood Partial Pressure CO2 28.1L, Arterial Blood Partial Pressure O2 80.0, Arterial Blood HCO3 22.8, Arterial Blood Oxygen Saturation 95.6, Arterial Blood Base Excess 0.4, Shaun Test Positive 03/26/17 09:35: White Blood Count 9.2, Red Blood Count 2.53L, Hemoglobin 8.8L, Hematocrit 25.8L , Mean Corpuscular Volume 102H, Mean Corpuscular Hemoglobin 34.8H, Mean Corpuscular Hemoglobin Concent 34.2, Red Cell Distribution Width 14.6, Platelet Count 231, Mean Platelet Volume 9.2, Neutrophils (%) (Auto) 79.2H, Lymphocytes ( %) (Auto) 15.2L, Monocytes (%) (Auto) 2.9, Eosinophils (%) (Auto) 1.8, Basophils (%) (Auto) 1.0, Sodium Level 136, Potassium Level 4.0, Chloride Level 102, Carbon Dioxide Level 23, Anion Gap 11, Blood Urea Nitrogen 32H, Creatinine 0.8, Estimat Glomerular Filtration Rate , Glucose Level 134H, Calcium Level 9.3 Height (Feet): 5 Height (Inches): 2.00 Weight (Pounds): 131 General Appearance: no apparent distress Cardiovascular: bradycardia Respiratory/Chest: decreased breath sounds Abdomen: soft Objective PE not changed IRWIN DAMON Mar 26, 2017 12:49
--- NOTE | 2017-03-26 12:51 | Diagnostic Imaging Report ---
Indication: Dyspnea Comparison: 03/22/17 A single view chest radiograph was obtained. Findings: Patchy basilar infiltrates and generalized prominence to the interstitium of the lungs demonstrated. Endotracheal tube is unchanged. Heart size is stable. Impression: No significant radiographic change
--- NOTE | 2017-03-26 13:06 | Infectious Diseases Prog Note ---
Assessment/Plan Assessment/Plan IMPRESSION: 1. Severe sepsis with multiorgan failure, improving, secondary to pneumonia, non cavitary, w/o effusion s/p recent admission for hypoxemic resp failure and pneumonia, treated with D#7 IV vanc/cefepime completed on 08Mar2017 ucx neg 03/12 blood cx negative for MRSA/MSSA 2. Bibasilar staph aureus pneumonia, to complete D14 IV vanc on 03/26/17 3. Acute respiratory failure. 4. Acute renal failure, prerenal, sp 5. Diabetes type 2 with hyperglycemia and proteinuria 6. Dementia. 7. Methicillin resistant Staphylococcus aureus colonization. 8. lactic acidosis, resolved 9. CoNS bacteremia vs contamination (03/12), s/p >7D IV vanc. consider treated. 10. mild R>L Tinea cruris on clotrimazole. 11. Cystitis, sterile, c/b microscopic hematuria. 12. bradycardia, unstable, s/p temp pacemaker yesterday afternoon. 13. s/p TTE on 12mar2017 with: Trace aortic regurgitation. Mild mitral regurgitation. Mitral inflow velocities indicates possible pseudo normalization pattern implying moderately elevated left atrial pressure (Grade II). Mild tricuspid regurgitation. Tricuspid systolic velocities suggests peak right ventricular systolic pressure of 37 mmHg, consistent with borderline mild pulmonary hypertension. Plan: --continue IV vancomycin D# 14 of 14 completing today [id number]. (03/15 s/p IV meropenem D#4) --monitor CBC --monitor temp curve --s/p surg consult, pending trach -- off of pressors -- continue clotrimazole to inguinal creases --s/p temp pacer yesterday afternoon. remains afebrile, leukocytosis resolved on hospital d#4, completing course of IV vanc for MRSA pneumonia, CXR today unchanged. Okay from Infect Dis perspective for pacemaker for symptomatic bradycardia. Subjective ROS Limited/Unobtainable: Yes Allergies: Coded Allergies: LORAZEPAM (Unverified Allergy, Unknown, 03/02/17) METOCLOPRAMIDE (Unverified Allergy, Unknown, 03/02/17) QUETIAPINE (Unverified Allergy, Unknown, 03/02/17) ZOLPIDEM (Unverified Allergy, Unknown, 03/02/17) Subjective afebrile. leukocytosis of 22 on admission resolved as of hospital d#4. Objective Vital Signs Last 24 Hour Vital Signs Date Time Temp Pulse Resp B/P (MAP) Pulse Ox O2 Delivery O2 Flow Rate FiO2 03/26/17 12:44 61 18 30 03/26/17 12:00 98.3 62 18 130/45 100 Mechanical Ventilator 30 03/26/17 12:00 62 03/26/17 12:00 30 03/26/17 11:04 52 18 30 03/26/17 11:00 56 18 103/40 100 Mechanical Ventilator 30 03/26/17 10:00 61 18 122/39 100 Mechanical Ventilator 30 03/26/17 09:00 63 18 122/54 100 Mechanical Ventilator 30 03/26/17 08:44 68 18 30 03/26/17 08:00 30 03/26/17 08:00 98.6 62 18 122/36 100 Mechanical Ventilator 30 03/26/17 08:00 52 03/26/17 07:30 112/94 03/26/17 07:17 48 18 30 03/26/17 07:00 61 18 124/43 100 Mechanical Ventilator 30 03/26/17 06:00 57 18 112/47 100 Mechanical Ventilator 30 03/26/17 05:29 52 18 30 03/26/17 05:00 62 18 109/54 100 Mechanical Ventilator 30 03/26/17 04:00 30 03/26/17 04:00 97.7 67 18 119/38 100 Mechanical Ventilator 03/26/17 04:00 52 03/26/17 03:24 66 18 30 03/26/17 03:00 62 18 125/43 100 Mechanical Ventilator 03/26/17 02:00 52 18 130/55 100 Mechanical Ventilator 30 03/26/17 01:29 56 18 30 03/26/17 01:00 54 18 136/40 100 Mechanical Ventilator 30 03/26/17 00:00 52 03/26/17 00:00 98.7 52 18 136/50 100 Mechanical Ventilator 03/26/17 00:00 30 03/25/17 23:16 52 18 30 03/25/17 23:00 52 18 139/41 100 Mechanical Ventilator 30 03/25/17 22:00 52 18 146/44 100 Mechanical Ventilator 30 03/25/17 21:15 57 18 30 03/25/17 21:00 52 18 174/41 100 Mechanical Ventilator 30 03/25/17 20:30 51 18 138/41 100 Mechanical Ventilator 30 03/25/17 20:00 98.5 51 18 130/41 100 Mechanical Ventilator 30 03/25/17 20:00 50 03/25/17 20:00 30 03/25/17 19:33 54 20 100 03/25/17 19:30 51 18 144/42 100 Mechanical Ventilator 30 03/25/17 19:27 55 18 30 03/25/17 15:50 30 03/25/17 15:22 49 18 30 03/25/17 15:00 58 18 137/48 100 Mechanical Ventilator 30 03/25/17 14:00 54 18 149/51 100 Mechanical Ventilator 30 Height (Feet): 5 Height (Inches): 2.00 Weight (Pounds): 131 Objective gen: intubated, not currently sedated, opens eyes. heent: oral mucosa dry, sclera anicteric cv: rrr lungs: coarse rhonchi abd: G tube in place, soft, nttp ext: trace ble. bue contractures, mild. PIV c/d/i gu: wayne in place draining clear yellow urine. skin: R>L inguinal tinea cruris, no petechiae. Radiology: Patient : RACQUEL KELLER Referring Physician: Kathy Welch (Vanchtein) [employer] ID Number: [id number] Service Date: 03/26/17 : 1935 Report Date: 03/26/17 Gender: F Accession No.: [id number] Location: ICU Procedure: XRAY Chest 1v Indication: Dyspnea Comparison: 03/22/17 A single view chest radiograph was obtained. Findings: Patchy basilar infiltrates and generalized prominence to the interstitium of the lungs demonstrated. Endotracheal tube is unchanged. Heart size is stable. Impression: No significant radiographic change Laboratory Tests Test 03/26/17 08:45 03/26/17 09:35 Arterial Blood pH 7.527 (7.350-7.450) Arterial Blood Partial Pressure CO2 28.1 mmHg (35.0-45.0) L Arterial Blood Partial Pressure O2 80.0 mmHg (75.0-100.0) Arterial Blood HCO3 22.8 mmol/L (22.0-26.0) Arterial Blood Oxygen Saturation 95.6 % (92.0-98.0) Arterial Blood Base Excess 0.4 Shaun Test Positive White Blood Count 9.2 K/UL (4.8-10.8) Red Blood Count 2.53 M/UL (4.20-5.40) L Hemoglobin 8.8 G/DL (12.0-16.0) L Hematocrit 25.8 % (37.0-47.0) L Mean Corpuscular Volume 102 FL (80-99) H Mean Corpuscular Hemoglobin 34.8 PG (27.0-31.0) H Mean Corpuscular Hemoglobin Concent 34.2 G/DL (32.0-36.0) Red Cell Distribution Width 14.6 % (11.6-14.8) Platelet Count 231 K/UL (150-450) Mean Platelet Volume 9.2 FL (6.5-10.1) Neutrophils (%) (Auto) 79.2 % (45.0-75.0) H Lymphocytes (%) (Auto) 15.2 % (20.0-45.0) L Monocytes (%) (Auto) 2.9 % (1.0-10.0) Eosinophils (%) (Auto) 1.8 % (0.0-3.0) Basophils (%) (Auto) 1.0 % (0.0-2.0) Sodium Level 136 mEQ/L (135-145) Potassium Level 4.0 mEQ/L (3.4-4.9) Chloride Level 102 mEQ/L (98-107) Carbon Dioxide Level 23 mEQ/L (20-30) Anion Gap 11 (5-15) Blood Urea Nitrogen 32 mg/dL (7-23) H Creatinine 0.8 mg/dL (0.5-0.9) Estimat Glomerular Filtration Rate mL/min (>60) Glucose Level 134 mg/dL (74-106) H Calcium Level 9.3 mg/dL (8.6-10.2) Current Medications Medications (Trade) Dose Ordered Sig/Ramiro Route PRN Reason Start Time Stop Time Status Last Admin Dose Admin Acetaminophen (Tylenol) 650 mg Q4H PRN ORAL fever>100.5 03/12/17 07:30 04/11/17 07:29 Albuterol/ Ipratropium (DuoNeb 0.5-3(2.5)mg/3ml) 3 ml Q4H PRN HHN SHORTNESS OF BREATH 03/25/17 10:00 03/30/17 09:59 Artificial Tears (Akwa-Tears) 2 drop Q2H PRN BOTH EYES Dry Eyes 03/15/17 16:30 04/14/17 16:29 03/22/17 11:43 Clotrimazole (Lotrimin) 1 applic EVERY 12 HOURS TOPIC 03/20/17 21:00 04/19/17 20:59 03/26/17 08:25 Dextrose (Dextrose 50%) STAT PRN IV Hypoglycemia 03/12/17 10:00 04/11/17 09:59 03/26/17 11:52 Famotidine (Pepcid I.v.) 20 mg DAILY IVP 03/13/17 10:00 04/12/17 09:59 03/26/17 08:21 Heparin Sodium (Porcine) (Heparin 5000 units/ml) 5,000 units EVERY 12 HOURS SUBQ 03/12/17 09:00 04/11/17 08:59 03/26/17 08:25 Insulin Aspart (NovoLOG) Q4H SUBQ 03/12/17 12:00 04/11/17 11:59 03/26/17 08:23 Insulin Detemir (Levemir) 5 units DAILY SUBQ 03/15/17 14:00 04/14/17 13:59 03/26/17 08:22 Norepinephrine Bitartrate 4 mg/ Dextrose 254 ml @ 0 mls/hr Q24H IV 03/12/17 07:30 04/11/17 07:29 Ondansetron HCl (Zofran) 4 mg Q6H PRN IVP Nausea & Vomiting 03/12/17 07:30 04/11/17 07:29 Polyethylene Glycol (Miralax) 17 gm DAILYPRN PRN ORAL Constipation 03/12/17 07:30 04/11/17 07:29 Vancomycin HCl (Vanco rx to dose) 1 ea DAILY PRN MISC PER RX PROTOCOL 03/13/17 11:30 03/26/17 23:59 Vancomycin/Sodium Chloride 250 ml @ 166.667 mls/hr Q24H IVPB 03/16/17 17:00 03/26/17 23:59 03/25/17 20:16 Paul Amaya M.D. Mar 26, 2017 13:06
[2017-03-26] MEDS: Vancomycin 750mg/NS 250ml 250 ML IVPB SCH (16:17)
[2017-03-26] MEDS ORDERED: Isovue-M 300 15ml INJ ONE (16:33)
[2017-03-26] MEDS ORDERED: Bupivacaine 0.25% Inj 30ml INJ ONE (16:34)
[2017-03-26] MEDS ORDERED: Lidocaine 1% Plain 30 ml INJ ONE (16:34)
[2017-03-26] MEDS ORDERED: Surgicel 4in x 8in TOPIC ONE (16:35)
[2017-03-26] MEDS ORDERED: Propofol 200mg/20ml IV ONE (17:00)
[2017-03-26] MEDS ORDERED: fentaNYL 100 mcg/2 mL IV ONE (17:00)
[2017-03-26] MEDS ORDERED: Zemuron 50mg/5ml Inj IV ONE (17:00)
--- NOTE | 2017-03-26 17:17 | Pre-Procedure Note/Attestation ---
Pre-Procedure Note/Attestation Complete Prior to Procedure Planned Procedure: left Procedure Narrative: permanent pacemaker Indications for Procedure Pre-Operative Diagnosis: intermittent complete av block Attestation I attest that I discussed the nature of the procedure; its benefits; risks and complications; and alternatives (and the risks and benefits of such alternatives ), prior to the procedure, with the patient (or the patient's legal veterans employment representative). I attest that, if there was a reasonable possibility of needing a blood transfusion, the patient (or the patient's legal veterans employment representative) was given the [facility] standardized written summary, pursuant to the [place] Blood Safety Act ([place] Health and Safety Code # 1645, as amended). I attest that I re-evaluated the patient just prior to the surgery and that there has been no change in the patient's H&P, except as documented below: none MAGNOLIA LIMA Mar 26, 2017 17:17
--- NOTE | 2017-03-26 17:25 | Consultation ---
Consult Note Consult Note Cardiac EP Full note dictated #[id number] MAGNOLIA LIMA Mar 26, 2017 17:25
[2017-03-26] MEDS ORDERED: Norco 5mg/325mg tab GT PRN (17:45)
[2017-03-26] MEDS ORDERED: Acetaminophen 650mg/20.3ml GT PRN (17:45)
[2017-03-26] MEDS ORDERED: Miralax 17gm pkt GT PRN (18:00)
--- NOTE | 2017-03-26 18:34 | Anethesia Preoperative Eval ---
Anesthesia Pre-op PMH/ROS General Date of Evaluation: Mar 26, 2017 Time of Evaluation: 16:58 Anesthesiologist: Lydia ASA Score: ASA 4 Mallampati Score Class I : Soft palate, uvula, fauces, pillars visible Class II: Soft palate, uvula, fauces visible Class III: Soft palate, base of uvula visible Class IV: Only hard plate visible Mallampati Classification: Class III - Intubated Surgeon: Minal Diagnosis: Complete heart block Surgical Procedure: Permanent pacemaker placement Anesthesia History: none Family History: no anesthesia problems Allergies: Coded Allergies: LORAZEPAM (Unverified Allergy, Unknown, 03/02/17) METOCLOPRAMIDE (Unverified Allergy, Unknown, 03/02/17) QUETIAPINE (Unverified Allergy, Unknown, 03/02/17) ZOLPIDEM (Unverified Allergy, Unknown, 03/02/17) Past Medical History Cardiovascular: Reports: HTN, arrhythmia, Denies: CAD, [place], valve dz, other Pulmonary: Reports: other - respiratory failure vent dependent, Denies: asthma, COPD, JESSICA Gastrointestinal/Genitourinary: Reports: CRI, other - dysphagia feeding tube in place, Denies: GERD, ESRD Neurologic/Psychiatric: Reports: dementia - severe, CVA, Denies: depression/anxiety, TIA, other Endocrine: Reports: DM, hypothyroidism HEENT: Reports: cataract (L), cataract (R) - s/p Sx, Denies: glaucoma, [place] (L), [place] (R), other Hematology/Immune: Reports: anemia, Denies: DVT, bleeding disorder, other Musculoskeletal/Integumentary: Reports: DJD, other - muscle contraction PMH Narrative: as above PSxH Narrative: see chart Anesthesia Pre-op Phys. Exam Physician Exam Last Vital Signs Date Time Temp Pulse Resp B/P (MAP) Pulse Ox O2 Delivery O2 Flow Rate FiO2 03/26/17 17:00 59 18 135/45 100 Mechanical Ventilator 30 03/26/17 16:00 98.4 Constitutional: NAD Neurologic: other - unable to obtaine Cardiovascular: other - temporary pacer in place Respiratory: CTA Gastrointestinal: S/NT/ND Airway Exam Mallampati Score: Class III - intubated MO: limited Neck: stiff ROM: limited Teeth: missing Dentures: no upper, no lower Anesthesia Pre-op A/P Labs Hematology Test 03/26/17 09:35 White Blood Count 9.2 K/UL (4.8-10.8) Red Blood Count 2.53 M/UL (4.20-5.40) L Hemoglobin 8.8 G/DL (12.0-16.0) L Hematocrit 25.8 % (37.0-47.0) L Mean Corpuscular Volume 102 FL (80-99) H Mean Corpuscular Hemoglobin 34.8 PG (27.0-31.0) H Mean Corpuscular Hemoglobin Concent 34.2 G/DL (32.0-36.0) Red Cell Distribution Width 14.6 % (11.6-14.8) Platelet Count 231 K/UL (150-450) Mean Platelet Volume 9.2 FL (6.5-10.1) Neutrophils (%) (Auto) 79.2 % (45.0-75.0) H Lymphocytes (%) (Auto) 15.2 % (20.0-45.0) L Monocytes (%) (Auto) 2.9 % (1.0-10.0) Eosinophils (%) (Auto) 1.8 % (0.0-3.0) Basophils (%) (Auto) 1.0 % (0.0-2.0) Chemistry Test 03/26/17 09:35 Sodium Level 136 mEQ/L (135-145) Potassium Level 4.0 mEQ/L (3.4-4.9) Chloride Level 102 mEQ/L (98-107) Carbon Dioxide Level 23 mEQ/L (20-30) Anion Gap 11 (5-15) Blood Urea Nitrogen 32 mg/dL (7-23) H Creatinine 0.8 mg/dL (0.5-0.9) Estimat Glomerular Filtration Rate mL/min (>60) Glucose Level 134 mg/dL (74-106) H Calcium Level 9.3 mg/dL (8.6-10.2) Studies Pre-op Studies: EKG - [place] Risk Assessment & Plan Assessment: ASA 4 Plan: GA with ETT Status Change Before Surgery: No Pre-Antibiotics Drug: Ancef 1 gr. Given Within 1 Hr of Incision: Yes Time Given: 18:06 YEIMY RUIZ M.D. Mar 26, 2017 18:34
--- NOTE | 2017-03-26 19:06 | Operative Note - PDOC ---
Operative Note Operative Note Date of Operation/Procedure: Mar 26, 2017 Pre-op Diagnosis: intermittent complete av block Procedure: permanent pacemaker - dual Post-op Diagnosis: intermittent complete av block Post-op Diagnosis: same as pre-op Operative Findings: consistent w/pre-op dx studies Anesthesia: general Specimen: none Complications: none Condition: stable Estimated Blood Loss: minimal Drains: none Implant(s) used?: Yes Indications for Procedure intermittent chb Description of Procedure see dictation dual chamber pacemaker placed via left cephalic vein MAGNOLIA LIMA Mar 26, 2017 19:06
--- NOTE | 2017-03-26 19:23 | Immediate Post-Op Evaluation ---
Immediate Post-Op Evalulation Immediate Post-Op Evalulation Procedure: permanent pacemaker placement Date of Evaluation: Mar 26, 2017 Time of Evaluation: 19:22 IV Fluids: 300 Blood Products: none Estimated Blood Loss: <50 Urinary Output: 100 Blood Pressure Systolic: 136 Blood Pressure Diastolic: 63 Pulse Rate: 75 Respiratory Rate: 10 O2 Sat by Pulse Oximetry: 100 Temperature (Fahrenheit): 97.5 Pain Score (1-10): 1 Nausea: No Vomiting: No Complications none Patient Status: no response, ventilated, none Hydration Status: adequate YEIMY RUIZ M.D. Mar 26, 2017 19:23
[2017-03-27] VITALS (24 sets, daily range): BP systolic 106–161; BP diastolic 35–104
--- NOTE | 2017-03-27 | Consultation ---
DATE OF CONSULTATION: CARDIAC ELECTROPHYSIOLOGY CONSULTATION CONSULTING PHYSICIAN: Elvia Herrera M.D. REASON FOR CONSULTATION: Consideration for permanent pacemaker. HISTORY OF PRESENT ILLNESS: History is obtained from the chart and the patient's daughter as the patient is intubated and unable to give any history. The patient is an 81-year-old woman with a history of previous CVA and right hemiparesis, who was admitted with pneumonia and sepsis. She is a group home resident. She had been treated with intravenous antibiotics over the past week. Yesterday, she was noted to suddenly develop complete AV block with ventricular rates in the 30s. The temporary pacemaker was placed. She was referred for a permanent pacemaker placement. She has no previous history of coronary artery disease, myocardial infarction, syncope, or bradycardia per her daughter. PAST MEDICAL HISTORY: As noted above. Also, history of G-tube placement, history of CVA with right hemiparesis, history of dementia, and history of pneumonia. MEDICATIONS: Vancomycin per pharmacy, albuterol nebulizer, insulin Levemir five units subcutaneously daily, Pepcid IV 20 mg daily, subcutaneous heparin 5000 units every 12 hours, norepinephrine p.r.n., MiraLax p.r.n., and Zofran p.r.n. ALLERGIES: Lorazepam, Reglan, Seroquel, and Ambien. SOCIAL HISTORY: The patient is a group home resident. She is not ambulatory. She has no history of tobacco or alcohol abuse. PHYSICAL EXAMINATION: VITAL SIGNS: Blood pressure is 135/50, pulse 59 and regular with intermittent ventricular pacing at 50 beats per minute, respirations 18, and afebrile. GENERAL: Sedated elderly appearing female, on the ventilator. HEENT: Normocephalic and atraumatic. Pupils are equal, round, and reactive to light. Endotracheal tube in place. NECK: Supple. There is no jugular venous distention. LUNGS: Clear anteriorly. HEART: Irregular S1 and S2. No murmur or S3. ABDOMEN: Soft and nontender. G-tube. EXTREMITIES: No peripheral edema. NEUROLOGIC: The patient is currently sedated. She moves left upper and lower extremity, but has no movement of the right upper or lower extremity. LABORATORY DATA: Hemoglobin is 8.8, white blood count 9200, and platelets 231,000. Potassium is 4.0, BUN 32, creatinine 0.8, and glucose 134. Diagnostic data: EKG from 03/25/2017 shows sinus rhythm with a rate of 68 beats per minute with 2:1 conduction, ventricular rate 34 beats per minute, right bundle-branch block, and low voltage QRS. Chest x-ray from today shows patchy basilar infiltrates and increased interstitial markings and endotracheal tube in place. An echocardiogram from 03/12/2017 shows normal left ventricular systolic function with an ejection fraction of 65%, mild mitral regurgitation, and mild tricuspid regurgitation. Assessment and recommendations: The patient is an 81-year-old woman with multiple medical problems as outlined above, who was admitted with pneumonia and sepsis. She has been treated with intravenous antibiotics over the past one to two weeks. Yesterday, she developed an episode of 2:1 second-degree AV block with ventricular rate of approximately 30 beats per minute while awake. There does not appear to be reversible cause for her bradycardia. I would agree with the recommendation for permanent pacemaker placement. She has a temporary pacemaker, which was placed through the femoral vein. This will be removed after the permanent pacemaker has been placed. The procedure was explained to her daughter, who is her medical decision maker and she is in agreement with this procedure. Elvia Fontaine M.D. DR: Kendrick JOB#: [id number] CC:
[2017-03-27] MEDS: NovoLOG Insulin Flexpen SUBQ SCH ×6 (00:12→20:44)
--- NOTE | 2017-03-27 00:30 | Operative Note - Dictated ---
PROCEDURE: Permanent dual-chamber pacemaker. INDICATION: Intermittent complete heart block. CLINICAL HISTORY: The patient is an 81-year-old woman who was admitted approximately two weeks ago with pneumonia and sepsis. She has developed intermittent complete heart block with ventricular rates in the 30s. ANESTHESIA: General endotracheal. The implanted device is a Medtronic [id number], serial number [id number], the implanted leads in the atrium is a Medtronic 5076, serial number [id number], in the ventricle is a Medtronic 5076, serial number [id number]. Pacing and sensing, in the atrium, sensing is 2.5 millivolts, in the ventricles 8.3 millivolts, pacing threshold 0.7 volts at 0.5 milliseconds in the atrium and 0.4 volts at 0.5 milliseconds in the ventricle, lead impedance of 408 ohms in the atrium and 786 ohms in the ventricle. DESCRIPTION OF PROCEDURE: The patient was brought to the operating room and received sedation as per the anesthesiologist, Dr. Freeman. She had been previously intubated and was on mechanical ventilation. She remained on this throughout the procedure. The chest was sterilely prepped and draped in the usual manner. The skin and underlying soft tissues just lateral to the chest was sterilely prepped and draped in the usual manner. The skin and underlying soft tissues of the left deltopectoral groove were infiltrated with 1% Xylocaine local anesthetic. An incision was made of about 3 cm in the left deltopectoral groove. This was carried down to the prepectoral fascia using blunt and Bovie dissection. The left cephalic vein was isolated. The proximal loop and distal tie of silk suture were placed. The vein was incised and two guidewires advanced under fluoroscopy into the low right atrium. The ventricular lead was passed directly through the vein and positioned in the right ventricular apex under fluoroscopy. The screw was advanced under fluoroscopy. The above pacing and sensing thresholds were obtained. There was no diaphragmatic stimulation with pacing at 10 volts. The lead was secured with two nonabsorbable sutures via the suture sleeves. Next, the atrial lead was positioned, placed through a 7-Slovenian safe sheath that was placed over one of the guidewires. The guidewire and dilator were removed and the atrial lead was positioned in the right atrial appendage under fluoroscopy. The screw was advanced under fluoroscopy. The above pacing and sensing thresholds were obtained. There was no diaphragmatic stimulation with pacing at 10 volts. The lead was secured similarly with two nonabsorbable sutures via the suture sleeves. A subcutaneous pocket was created using blunt and Bovie dissection. The pocket was irrigated with an antibiotic solution. The pacemaker generator was brought to the field. Atrial and ventricular leads were attached. The setscrews were tightened and checked. The leads and generator placed into the subcutaneous pocket with the excess lead coiled beneath the generator. The lead was secured with nonabsorbable suture to the underlying fascia. The incision was then closed in three layers with 2-0 Monocryl and 4-0 Monocryl. A sterile dressing was applied. The patient tolerated the procedure well and was transferred back to the intensive care unit in stable condition. Elvia Fontaine M.D. DR: ANDRIY JOB#: [id number] CC:
[2017-03-27 04:53] LABS: BASOPHILS % (AUTO) 1.9 % (0.0-2.0); EOSINOPHILS % (AUTO) 2.4 % (0.0-3.0); MEAN CORPUSCULAR HEMOGLOBIN 33.7 PG (27.0-31.0); MEAN CORPUSCULAR HGB CONC 33.1 G/DL (32.0-36.0); MEAN CORPUSCULAR VOLUME 102 FL (80-99); MEAN PLATELET VOLUME 8.7 FL (6.5-10.1); MONOCYTES % (AUTO) 7.1 % (1.0-10.0); NEUTROPHILS % (AUTO) 77.5 % (45.0-75.0); PLATELET COUNT 219 K/UL (150-450); RED BLOOD COUNT 2.42 M/UL (4.20-5.40); RED CELL DISTRIBUTION WIDTH 14.9 % (11.6-14.8); WHITE BLOOD COUNT 8.5 K/UL (4.8-10.8)
[2017-03-27 05:53] LABS: ALANINE AMINOTRANSFERASE 9 U/L (3-33); ALBUMIN/GLOBULIN RATIO 0.7 (1.0-2.7); ANION GAP 10 (5-15); ASPARTATE AMINO TRANSFERASE 18 U/L (5-40); CALCIUM 8.6 mg/dL (8.6-10.2); CARBON DIOXIDE 23 mEQ/L (20-30); CHLORIDE 103 mEQ/L (98-107); CREATININE 0.8 mg/dL (0.5-0.9); HEMOLYSIS 4; MAGNESIUM 1.9 mg/dL (1.7-2.5); PHOSPHORUS 3.3 mg/dL (2.5-4.8); POTASSIUM 3.9 mEQ/L (3.4-4.9); SODIUM 136 mEQ/L (135-145); TOTAL PROTEIN 5.2 g/dL (6.6-8.7)
[2017-03-27] MEDS: Levemir Flexpen SUBQ SCH (08:28)
[2017-03-27] MEDS: Heparin 5000 units/ml inj SUBQ SCH ×2 (08:30→20:46)
[2017-03-27] MEDS: Famotidine 20 MG/ 2ML VIAL IVP SCH (08:33)
[2017-03-27] MEDS ORDERED: Vancomycin 500 MG in D5W 110 ML IVPB ONE (09:00)
[2017-03-27 09:31] LABS: ABG PCO2 28.6 mmHg (35.0-45.0)
[2017-03-27 09:32] LABS: ABG ALLEN TEST POSITIVE; ABG BASE EXCESS -0.9
--- NOTE | 2017-03-27 10:35 | Pulmonolgy Critical Care Note ---
Critical Care - Asmt/Plan Problems: (1) Respiratory failure requiring intubation (2) Pneumonia (3) Anemia (4) Advanced dementia (5) Feeding by G-tube (6) Severe sepsis Respiratory: monitor respiratory rate, adjust FIO2, CXR, other - trach tomorrow Cardiac: continue to monitor HR/BP Renal: F/U I&O, keep IV fluid Infectious Disease: check cultures, continue antibiotics Gastrointestinal: continue feedings/current rate Endocrine: monitor blood sugar, continue sliding scale insulin Hematologic: monitor H/H, transfuse if hgb<8.5 Neurologic: PRN Ativan, keep patient comfortable Affect: PRN ativan Prophylaxis: Protonix, Heparin Notes Reviewed: nurse advocate, cardio, renal Discussed with: nurses, consultants, 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 - Objective Last 24 Hour Vital Signs Date Time Temp Pulse Resp B/P (MAP) Pulse Ox O2 Delivery O2 Flow Rate FiO2 03/27/17 10:00 66 18 129/90 100 Mechanical Ventilator 30 03/27/17 09:10 60 18 30 03/27/17 09:00 60 18 129/42 100 Mechanical Ventilator 30 03/27/17 08:00 60 03/27/17 08:00 30 03/27/17 08:00 98.6 60 29 126/44 100 Mechanical Ventilator 30 03/27/17 07:26 135/44 03/27/17 07:19 60 18 30 03/27/17 07:00 60 18 135/44 100 Mechanical Ventilator 30 03/27/17 06:00 60 18 130/45 100 Mechanical Ventilator 30 03/27/17 05:20 65 19 30 03/27/17 05:00 64 25 131/81 100 Mechanical Ventilator 30 03/27/17 04:00 70 03/27/17 04:00 98.5 70 18 146/49 100 Mechanical Ventilator 30 03/27/17 04:00 30 03/27/17 03:01 73 19 30 03/27/17 03:00 64 20 144/89 99 Mechanical Ventilator 30 03/27/17 02:00 73 23 161/87 99 Mechanical Ventilator 30 03/27/17 01:30 63 18 30 03/27/17 01:00 72 18 152/71 100 Mechanical Ventilator 30 03/27/17 00:00 66 03/27/17 00:00 98.3 68 20 137/48 99 Mechanical Ventilator 30 03/27/17 00:00 30 03/26/17 23:00 77 24 142/59 99 Mechanical Ventilator 30 03/26/17 22:54 72 18 30 03/26/17 22:00 74 18 147/59 100 Mechanical Ventilator 03/26/17 21:00 75 20 147/62 100 Mechanical Ventilator 03/26/17 20:55 80 20 30 03/26/17 20:00 62 03/26/17 20:00 30 03/26/17 20:00 97.3 77 18 145/63 100 Mechanical Ventilator 03/26/17 19:23 75 10 100 03/26/17 19:20 82 18 30 03/26/17 17:00 59 18 135/45 100 Mechanical Ventilator 03/26/17 16:00 30 03/26/17 16:00 62 03/26/17 16:00 98.4 62 18 131/38 100 Mechanical Ventilator 03/26/17 15:21 73 18 30 03/26/17 15:00 56 18 130/41 99 Mechanical Ventilator 03/26/17 14:00 60 18 125/39 97 Mechanical Ventilator 30 03/26/17 13:00 69 18 135/38 100 Mechanical Ventilator 30 03/26/17 12:44 61 18 30 03/26/17 12:00 98.3 62 18 130/45 100 Mechanical Ventilator 03/26/17 12:00 62 03/26/17 12:00 30 03/26/17 11:04 52 18 30 03/26/17 11:00 56 18 103/40 100 Mechanical Ventilator 30 Status: awake Condition: critical HEENT: atraumatic Neck: full ROM Lungs: clear, chest wall tender Heart: HR/BP stable, HR/BP unstable, regular Abdomen: soft, non-tender, active bowel sounds Extremities: no C/C/E, edema Decubiti: location Accucheck: 194 Critical Care - Subjective ROS Limited/Unobtainable: Yes Interval Events: got pace maker last night Condition: critical FI02: 30 Vent Support Breath Rate: 18 Vent Support Mode: AC Vent Tidal Volume: 500 Sputum Amount: Small PEEP: 5.0 PIP: 28 Tube Feeding Amount: 45 I&O: Intake and Output 03/27/17 03/28/17 19:00 07:00 Intake Total 135 ml Output Total 90 ml Balance 45 ml Tube Feeding 135 ml Output Urine Total 90 ml CXR: no change ET-Tube: 7.0 ET Position: 21 Labs: Laboratory Tests Test 03/27/17 03:45 03/27/17 09:00 White Blood Count 8.5 K/UL (4.8-10.8) Red Blood Count 2.42 M/UL (4.20-5.40) L Hemoglobin 8.2 G/DL (12.0-16.0) L Hematocrit 24.7 % (37.0-47.0) L Mean Corpuscular Volume 102 FL (80-99) H Mean Corpuscular Hemoglobin 33.7 PG (27.0-31.0) H Mean Corpuscular Hemoglobin Concent 33.1 G/DL (32.0-36.0) Red Cell Distribution Width 14.9 % (11.6-14.8) H Platelet Count 219 K/UL (150-450) Mean Platelet Volume 8.7 FL (6.5-10.1) Neutrophils (%) (Auto) 77.5 % (45.0-75.0) H Lymphocytes (%) (Auto) 11.0 % (20.0-45.0) L Monocytes (%) (Auto) 7.1 % (1.0-10.0) Eosinophils (%) (Auto) 2.4 % (0.0-3.0) Basophils (%) (Auto) 1.9 % (0.0-2.0) Sodium Level 136 mEQ/L (135-145) Potassium Level 3.9 mEQ/L (3.4-4.9) Chloride Level 103 mEQ/L (98-107) Carbon Dioxide Level 23 mEQ/L (20-30) Anion Gap 10 (5-15) Blood Urea Nitrogen 27 mg/dL (7-23) H Creatinine 0.8 mg/dL (0.5-0.9) Estimat Glomerular Filtration Rate mL/min (>60) Glucose Level 253 mg/dL (74-106) #H Calcium Level 8.6 mg/dL (8.6-10.2) Phosphorus Level 3.3 mg/dL (2.5-4.8) Magnesium Level 1.9 mg/dL (1.7-2.5) Total Bilirubin 0.3 mg/dL (0.0-1.2) Aspartate Amino Transf (AST/SGOT) 18 U/L (5-40) Alanine Aminotransferase (ALT/SGPT) 9 U/L (3-33) Alkaline Phosphatase 87 U/L (35-104) Total Protein 5.2 g/dL (6.6-8.7) L Albumin 2.3 g/dL (3.5-5.2) L Globulin 2.9 g/dL Albumin/Globulin Ratio 0.7 (1.0-2.7) L Arterial Blood pH 7.496 (7.350-7.450) Arterial Blood Partial Pressure CO2 28.6 mmHg (35.0-45.0) L Arterial Blood Partial Pressure O2 93.0 mmHg (75.0-100.0) Arterial Blood HCO3 21.6 mmol/L (22.0-26.0) L Arterial Blood Oxygen Saturation 96.2 % (92.0-98.0) Arterial Blood Base Excess -0.9 Shaun Test Positive ZAIRA ROSALES Mar 27, 2017 10:35
--- NOTE | 2017-03-27 11:05 | General Progress Note ---
Assessment/Plan Assessment/Plan 1. Leukocytosis, secondary to underlying sepsis. Continue monitoring. --> Has been resolved --> WBC wnl 2. Anemia secondary to chronic disease.. --> transfuse if hgb is less than 8 or symptomatic --> monitor counts --> has been stable >8 --> occult blood negative and hiv panel negative 4. Coagulopathy, potentially secondary to underlying sepsis as well. --> PTT and prothrombin time now WNL --> continue to monitor 5. Methicillin-resistant Staphylococcus aureus colonization. --> id following 6. Respiratory failure, status post intubation. 7. Symptomatic bradycardia --> cardiology following, planned pacemaker placement Subjective Date patient seen: Mar 26, 2017 Constitutional: Reports: no symptoms HEENT: Reports: no symptoms Cardiovascular: Reports: no symptoms Respiratory: Reports: no symptoms Gastrointestinal/Abdominal: Reports: no symptoms Genitourinary: Reports: no symptoms Neurologic/Psychiatric: Reports: no symptoms Endocrine: Reports: no symptoms Hematologic/Lymphatic: Reports: anemia Allergies: Coded Allergies: LORAZEPAM (Unverified Allergy, Unknown, 03/02/17) METOCLOPRAMIDE (Unverified Allergy, Unknown, 03/02/17) QUETIAPINE (Unverified Allergy, Unknown, 03/02/17) ZOLPIDEM (Unverified Allergy, Unknown, 03/02/17) Subjective pacemaker placement Objective Last 24 Hour Vital Signs Date Time Temp Pulse Resp B/P (MAP) Pulse Ox O2 Delivery O2 Flow Rate FiO2 03/27/17 10:40 60 18 30 03/27/17 10:00 66 18 129/90 100 Mechanical Ventilator 03/27/17 09:10 60 18 30 03/27/17 09:00 60 18 129/42 100 Mechanical Ventilator 30 03/27/17 08:00 60 03/27/17 08:00 30 03/27/17 08:00 98.6 60 29 126/44 100 Mechanical Ventilator 30 03/27/17 07:26 135/44 03/27/17 07:19 60 18 30 03/27/17 07:00 60 18 135/44 100 Mechanical Ventilator 03/27/17 06:00 60 18 130/45 100 Mechanical Ventilator 03/27/17 05:20 65 19 30 03/27/17 05:00 64 25 131/81 100 Mechanical Ventilator 03/27/17 04:00 70 03/27/17 04:00 98.5 70 18 146/49 100 Mechanical Ventilator 30 03/27/17 04:00 30 03/27/17 03:01 73 19 30 03/27/17 03:00 64 20 144/89 99 Mechanical Ventilator 30 03/27/17 02:00 73 23 161/87 99 Mechanical Ventilator 30 03/27/17 01:30 63 18 30 03/27/17 01:00 72 18 152/71 100 Mechanical Ventilator 30 03/27/17 00:00 66 03/27/17 00:00 98.3 68 20 137/48 99 Mechanical Ventilator 30 03/27/17 00:00 30 03/26/17 23:00 77 24 142/59 99 Mechanical Ventilator 30 03/26/17 22:54 72 18 30 03/26/17 22:00 74 18 147/59 100 Mechanical Ventilator 30 03/26/17 21:00 75 20 147/62 100 Mechanical Ventilator 30 03/26/17 20:55 80 20 30 03/26/17 20:00 62 03/26/17 20:00 30 03/26/17 20:00 97.3 77 18 145/63 100 Mechanical Ventilator 30 03/26/17 19:23 75 10 100 03/26/17 19:20 82 18 30 03/26/17 17:00 59 18 135/45 100 Mechanical Ventilator 30 03/26/17 16:00 30 03/26/17 16:00 62 03/26/17 16:00 98.4 62 18 131/38 100 Mechanical Ventilator 03/26/17 15:21 73 18 30 03/26/17 15:00 56 18 130/41 99 Mechanical Ventilator 30 03/26/17 14:00 60 18 125/39 97 Mechanical Ventilator 30 03/26/17 13:00 69 18 135/38 100 Mechanical Ventilator 30 03/26/17 12:44 61 18 30 03/26/17 12:00 98.3 62 18 130/45 100 Mechanical Ventilator 30 03/26/17 12:00 62 03/26/17 12:00 30 03/26/17 11:04 52 18 30 Intake and Output 03/27/17 03/28/17 19:00 07:00 Intake Total 135 ml Output Total 90 ml Balance 45 ml Tube Feeding 135 ml Output Urine Total 90 ml Laboratory Tests 03/27/17 03:45: White Blood Count 8.5, Red Blood Count 2.42L, Hemoglobin 8.2L, Hematocrit 24.7L , Mean Corpuscular Volume 102H, Mean Corpuscular Hemoglobin 33.7H, Mean Corpuscular Hemoglobin Concent 33.1, Red Cell Distribution Width 14.9H, Platelet Count 219, Mean Platelet Volume 8.7, Neutrophils (%) (Auto) 77.5H, Lymphocytes (%) (Auto) 11.0L, Monocytes (%) (Auto) 7.1, Eosinophils (%) (Auto) 2.4, Basophils (%) (Auto) 1.9, Sodium Level 136, Potassium Level 3.9, Chloride Level 103, Carbon Dioxide Level 23, Anion Gap 10, Blood Urea Nitrogen 27H, Creatinine 0.8, Estimat Glomerular Filtration Rate , Glucose Level 253#H, Calcium Level 8.6, Phosphorus Level 3.3, Magnesium Level 1.9, Total Bilirubin 0.3, Aspartate Amino Transf (AST/SGOT) 18, Alanine Aminotransferase (ALT/SGPT) 9 , Alkaline Phosphatase 87, Total Protein 5.2L, Albumin 2.3L, Globulin 2.9, Albumin/Globulin Ratio 0.7L 03/27/17 09:00: Arterial Blood pH 7.496H, Arterial Blood Partial Pressure CO2 28.6L, Arterial Blood Partial Pressure O2 93.0, Arterial Blood HCO3 21.6L, Arterial Blood Oxygen Saturation 96.2, Arterial Blood Base Excess -0.9, Shaun Test Positive Height (Feet): 5 Height (Inches): 2.00 Weight (Pounds): 135 General Appearance: no apparent distress EENT: normal ENT inspection Neck: normal alignment Cardiovascular: normal peripheral pulses Abdomen: normal bowel sounds Extremities: normal range of motion Edema: no edema noted Pedal (L), no edema noted Pedal (R) 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
--- NOTE | 2017-03-27 11:54 | Diagnostic Imaging Report ---
Indication: Status post pacemaker Technique: One view of the chest Comparison: 13 hours earlier Findings: Interim placement left chest pacemaker, lead tips projecting in expected region of the right atrium and right ventricular apex. Patient is rotated to the right. Stable satisfactory position of endotracheal tube. Bilateral right greater than left infiltrates persists. Small bilateral pleural effusions persists. No pneumothorax. Previously demonstrated transfemoral temporary pacemaker is no longer evident Impression: Status post uncomplicated left chest pacemaker placement Other stable findings as described
--- NOTE | 2017-03-27 12:11 | General Progress Note ---
Assessment/Plan Status: stable - from renal stand Assessment/Plan Respiratory failure requiring intubation Severe sepsis secondary to pneumonia, resolving UTI Acute cystitis without hematuria Pneumonia, non cavitary, w/o effusion Dementia Acute renal failure , Dehydration Hypoxemic respiratory failure Type 2 diabetes mellitus with hyperglycemia Proteinuria Plan: due Trach again for 03/28 pending cardio clearance , postponed due to low HR and temporary pacer Pulm support- Monitor renal parameters Urine studies- Avoid Nephrotoxics- Per Orders Subjective ROS Limited/Unobtainable: Yes Allergies: Coded Allergies: LORAZEPAM (Unverified Allergy, Unknown, 03/02/17) METOCLOPRAMIDE (Unverified Allergy, Unknown, 03/02/17) QUETIAPINE (Unverified Allergy, Unknown, 03/02/17) ZOLPIDEM (Unverified Allergy, Unknown, 03/02/17) Objective Last 24 Hour Vital Signs Date Time Temp Pulse Resp B/P (MAP) Pulse Ox O2 Delivery O2 Flow Rate FiO2 03/27/17 11:00 30 24 129/38 100 Mechanical Ventilator 03/27/17 10:40 60 18 30 03/27/17 10:00 66 18 129/90 100 Mechanical Ventilator 03/27/17 09:10 60 18 30 03/27/17 09:00 60 18 129/42 100 Mechanical Ventilator 03/27/17 08:00 60 03/27/17 08:00 30 03/27/17 08:00 98.6 60 29 126/44 100 Mechanical Ventilator 03/27/17 07:26 135/44 03/27/17 07:19 60 18 30 03/27/17 07:00 60 18 135/44 100 Mechanical Ventilator 03/27/17 06:00 60 18 130/45 100 Mechanical Ventilator 30 03/27/17 05:20 65 19 30 03/27/17 05:00 64 25 131/81 100 Mechanical Ventilator 03/27/17 04:00 70 03/27/17 04:00 98.5 70 18 146/49 100 Mechanical Ventilator 03/27/17 04:00 30 03/27/17 03:01 73 19 30 03/27/17 03:00 64 20 144/89 99 Mechanical Ventilator 03/27/17 02:00 73 23 161/87 99 Mechanical Ventilator 30 03/27/17 01:30 63 18 30 03/27/17 01:00 72 18 152/71 100 Mechanical Ventilator 30 03/27/17 00:00 66 03/27/17 00:00 98.3 68 20 137/48 99 Mechanical Ventilator 30 03/27/17 00:00 30 03/26/17 23:00 77 24 142/59 99 Mechanical Ventilator 30 03/26/17 22:54 72 18 30 03/26/17 22:00 74 18 147/59 100 Mechanical Ventilator 03/26/17 21:00 75 20 147/62 100 Mechanical Ventilator 03/26/17 20:55 80 20 30 03/26/17 20:00 62 03/26/17 20:00 30 03/26/17 20:00 97.3 77 18 145/63 100 Mechanical Ventilator 03/26/17 19:23 75 10 100 03/26/17 19:20 82 18 30 03/26/17 17:00 59 18 135/45 100 Mechanical Ventilator 03/26/17 16:00 30 03/26/17 16:00 62 03/26/17 16:00 98.4 62 18 131/38 100 Mechanical Ventilator 03/26/17 15:21 73 18 30 03/26/17 15:00 56 18 130/41 99 Mechanical Ventilator 30 03/26/17 14:00 60 18 125/39 97 Mechanical Ventilator 30 03/26/17 13:00 69 18 135/38 100 Mechanical Ventilator 30 03/26/17 12:44 61 18 30 Intake and Output 03/27/17 03/28/17 19:00 07:00 Intake Total 180 ml Output Total 125 ml Balance 55 ml Tube Feeding 180 ml Output Urine Total 125 ml Laboratory Tests 03/27/17 03:45: White Blood Count 8.5, Red Blood Count 2.42L, Hemoglobin 8.2L, Hematocrit 24.7L , Mean Corpuscular Volume 102H, Mean Corpuscular Hemoglobin 33.7H, Mean Corpuscular Hemoglobin Concent 33.1, Red Cell Distribution Width 14.9H, Platelet Count 219, Mean Platelet Volume 8.7, Neutrophils (%) (Auto) 77.5H, Lymphocytes (%) (Auto) 11.0L, Monocytes (%) (Auto) 7.1, Eosinophils (%) (Auto) 2.4, Basophils (%) (Auto) 1.9, Sodium Level 136, Potassium Level 3.9, Chloride Level 103, Carbon Dioxide Level 23, Anion Gap 10, Blood Urea Nitrogen 27H, Creatinine 0.8, Estimat Glomerular Filtration Rate , Glucose Level 253#H, Calcium Level 8.6, Phosphorus Level 3.3, Magnesium Level 1.9, Total Bilirubin 0.3, Aspartate Amino Transf (AST/SGOT) 18, Alanine Aminotransferase (ALT/SGPT) 9 , Alkaline Phosphatase 87, Total Protein 5.2L, Albumin 2.3L, Globulin 2.9, Albumin/Globulin Ratio 0.7L 03/27/17 09:00: Arterial Blood pH 7.496H, Arterial Blood Partial Pressure CO2 28.6L, Arterial Blood Partial Pressure O2 93.0, Arterial Blood HCO3 21.6L, Arterial Blood Oxygen Saturation 96.2, Arterial Blood Base Excess -0.9, Shaun Test Positive Height (Feet): 5 Height (Inches): 2.00 Weight (Pounds): 135 General Appearance: no apparent distress Cardiovascular: bradycardia Respiratory/Chest: decreased breath sounds Abdomen: soft Objective PE not changed IRWIN DAMON Mar 27, 2017 12:11
--- NOTE | 2017-03-27 14:43 | Infectious Diseases Prog Note ---
Assessment/Plan Assessment/Plan IMPRESSION: 1. Severe sepsis with multiorgan failure,s/p, secondary to MRSA pneumonia, non cavitary, w/o effusion s/p recent admission for hypoxemic resp failure and pneumonia, treated with D#7 IV vanc/cefepime completed on [id number] ucx neg 03/12 blood cx negative for MRSA/MSSA 2. Bibasilar staph aureus pneumonia, s/p D14 IV vanc completed on 03/26/17 3. Acute respiratory failure. 4. Acute renal failure, prerenal, sp 5. Diabetes type 2 with hyperglycemia and proteinuria 6. Dementia. 7. Methicillin resistant Staphylococcus aureus colonization. 8. lactic acidosis, resolved 9. CoNS bacteremia vs contamination (03/12), s/p >7D IV vanc. consider treated. 10. mild R>L Tinea cruris on clotrimazole, s/p 11. Cystitis, sterile, c/b microscopic hematuria. 12. bradycardia (CHB), s/p L groin temp venous pacemaker 03/25/17. s/p temp pacer removal 03/26, s/p L chest wall permanent pacemaker 03/26/17. 13. s/p TTE on [id number] with: Trace aortic regurgitation. Mild mitral regurgitation. Mitral inflow velocities indicates possible pseudo normalization pattern implying moderately elevated left atrial pressure (Grade II). Mild tricuspid regurgitation. Tricuspid systolic velocities suggests peak right ventricular systolic pressure of 37 mmHg, consistent with borderline mild pulmonary hypertension. Plan: --Monitor off abx after given routine post perm pacemaker IV vanc tonight. (03/27/17 s/p IV vancomycin D#14) (03/15 s/p IV meropenem D#4) --monitor CBC --monitor temp curve --s/p surg consult, pending trach -- off of pressors covering for Dr. Ohara. Subjective ROS Limited/Unobtainable: Yes Allergies: Coded Allergies: LORAZEPAM (Unverified Allergy, Unknown, 03/02/17) METOCLOPRAMIDE (Unverified Allergy, Unknown, 03/02/17) QUETIAPINE (Unverified Allergy, Unknown, 03/02/17) ZOLPIDEM (Unverified Allergy, Unknown, 03/02/17) Subjective afebrile. leukocytosis of 22 on admission resolved as of hospital d#4. Objective Vital Signs Last 24 Hour Vital Signs Date Time Temp Pulse Resp B/P (MAP) Pulse Ox O2 Delivery O2 Flow Rate FiO2 03/27/17 13:10 76 26 30 03/27/17 12:00 30 03/27/17 12:00 60 03/27/17 12:00 99.0 60 18 130/40 100 Mechanical Ventilator 30 03/27/17 11:00 60 24 129/38 100 Mechanical Ventilator 30 03/27/17 10:40 60 18 30 03/27/17 10:00 66 18 129/90 100 Mechanical Ventilator 30 03/27/17 09:10 60 18 30 03/27/17 09:00 60 18 129/42 100 Mechanical Ventilator 30 03/27/17 08:00 60 03/27/17 08:00 30 03/27/17 08:00 98.6 60 29 126/44 100 Mechanical Ventilator 30 03/27/17 07:26 135/44 03/27/17 07:19 60 18 30 03/27/17 07:00 60 18 135/44 100 Mechanical Ventilator 30 03/27/17 06:00 60 18 130/45 100 Mechanical Ventilator 30 03/27/17 05:20 65 19 30 03/27/17 05:00 64 25 131/81 100 Mechanical Ventilator 30 03/27/17 04:00 70 03/27/17 04:00 98.5 70 18 146/49 100 Mechanical Ventilator 30 03/27/17 04:00 30 03/27/17 03:01 73 19 30 03/27/17 03:00 64 20 144/89 99 Mechanical Ventilator 30 03/27/17 02:00 73 23 161/87 99 Mechanical Ventilator 30 03/27/17 01:30 63 18 30 03/27/17 01:00 72 18 152/71 100 Mechanical Ventilator 30 03/27/17 00:00 66 03/27/17 00:00 98.3 68 20 137/48 99 Mechanical Ventilator 30 03/27/17 00:00 30 03/26/17 23:00 77 24 142/59 99 Mechanical Ventilator 30 03/26/17 22:54 72 18 30 03/26/17 22:00 74 18 147/59 100 Mechanical Ventilator 30 03/26/17 21:00 75 20 147/62 100 Mechanical Ventilator 30 03/26/17 20:55 80 20 30 03/26/17 20:00 62 03/26/17 20:00 30 03/26/17 20:00 97.3 77 18 145/63 100 Mechanical Ventilator 30 03/26/17 19:23 75 10 100 03/26/17 19:20 82 18 30 03/26/17 17:00 59 18 135/45 100 Mechanical Ventilator 30 03/26/17 16:00 30 03/26/17 16:00 62 03/26/17 16:00 98.4 62 18 131/38 100 Mechanical Ventilator 30 03/26/17 15:21 73 18 30 03/26/17 15:00 56 18 130/41 99 Mechanical Ventilator 30 Height (Feet): 5 Height (Inches): 2.00 Weight (Pounds): 135 Objective gen: intubated, not currently sedated, opens eyes. heent: oral mucosa dry, sclera anicteric cv: rrr. L chest wall s/p placement of permanent pacemaker 03/26/17. lungs: coarse rhonchi abd: G tube in place, soft, nttp ext: trace ble. bue contractures, mild. PIV c/d/i R hand. gu: wayne in place draining clear yellow urine. skin: R>L inguinal tinea cruris, no petechiae. former L groin temp venous pacemaker is out, under dressing w/o surrounding erythema. Laboratory Tests Test 03/27/17 03:45 03/27/17 09:00 White Blood Count 8.5 K/UL (4.8-10.8) Red Blood Count 2.42 M/UL (4.20-5.40) L Hemoglobin 8.2 G/DL (12.0-16.0) L Hematocrit 24.7 % (37.0-47.0) L Mean Corpuscular Volume 102 FL (80-99) H Mean Corpuscular Hemoglobin 33.7 PG (27.0-31.0) H Mean Corpuscular Hemoglobin Concent 33.1 G/DL (32.0-36.0) Red Cell Distribution Width 14.9 % (11.6-14.8) H Platelet Count 219 K/UL (150-450) Mean Platelet Volume 8.7 FL (6.5-10.1) Neutrophils (%) (Auto) 77.5 % (45.0-75.0) H Lymphocytes (%) (Auto) 11.0 % (20.0-45.0) L Monocytes (%) (Auto) 7.1 % (1.0-10.0) Eosinophils (%) (Auto) 2.4 % (0.0-3.0) Basophils (%) (Auto) 1.9 % (0.0-2.0) Sodium Level 136 mEQ/L (135-145) Potassium Level 3.9 mEQ/L (3.4-4.9) Chloride Level 103 mEQ/L (98-107) Carbon Dioxide Level 23 mEQ/L (20-30) Anion Gap 10 (5-15) Blood Urea Nitrogen 27 mg/dL (7-23) H Creatinine 0.8 mg/dL (0.5-0.9) Estimat Glomerular Filtration Rate mL/min (>60) Glucose Level 253 mg/dL (74-106) #H Calcium Level 8.6 mg/dL (8.6-10.2) Phosphorus Level 3.3 mg/dL (2.5-4.8) Magnesium Level 1.9 mg/dL (1.7-2.5) Total Bilirubin 0.3 mg/dL (0.0-1.2) Aspartate Amino Transf (AST/SGOT) 18 U/L (5-40) Alanine Aminotransferase (ALT/SGPT) 9 U/L (3-33) Alkaline Phosphatase 87 U/L (35-104) Total Protein 5.2 g/dL (6.6-8.7) L Albumin 2.3 g/dL (3.5-5.2) L Globulin 2.9 g/dL Albumin/Globulin Ratio 0.7 (1.0-2.7) L Arterial Blood pH 7.496 (7.350-7.450) Arterial Blood Partial Pressure CO2 28.6 mmHg (35.0-45.0) L Arterial Blood Partial Pressure O2 93.0 mmHg (75.0-100.0) Arterial Blood HCO3 21.6 mmol/L (22.0-26.0) L Arterial Blood Oxygen Saturation 96.2 % (92.0-98.0) Arterial Blood Base Excess -0.9 Shaun Test Positive Current Medications Medications (Trade) Dose Ordered Sig/Ramiro Route PRN Reason Start Time Stop Time Status Last Admin Dose Admin Acetaminophen (Tylenol) 650 mg Q4H PRN ORAL fever>100.5 03/12/17 07:30 04/11/17 07:29 Acetaminophen (Tylenol) 650 mg Q6H PRN GT Mild Pain (Pain Scale 1-3) 03/26/17 17:45 04/25/17 17:44 Acetaminophen/ Hydrocodone Bitart ([place] 5/325) 1 tab Q4H PRN GT Moderate Pain (Pain Scale 4-6) 03/26/17 17:45 04/02/17 17:44 Albuterol/ Ipratropium (DuoNeb 0.5-3(2.5)mg/3ml) 3 ml Q4H PRN HHN SHORTNESS OF BREATH 03/25/17 10:00 03/30/17 09:59 Artificial Tears (Akwa-Tears) 2 drop Q2H PRN BOTH EYES Dry Eyes 03/15/17 16:30 04/14/17 16:29 03/22/17 11:43 Clotrimazole (Lotrimin) 1 applic EVERY 12 HOURS TOPIC 03/20/17 21:00 04/19/17 20:59 03/27/17 08:33 Dextrose (Dextrose 50%) STAT PRN IV Hypoglycemia 03/12/17 10:00 04/11/17 09:59 03/26/17 11:52 Famotidine (Pepcid I.v.) 20 mg DAILY IVP 03/13/17 10:00 04/12/17 09:59 03/27/17 08:33 Heparin Sodium (Porcine) (Heparin 5000 units/ml) 5,000 units EVERY 12 HOURS SUBQ 03/12/17 09:00 04/11/17 08:59 03/27/17 08:30 Insulin Aspart (NovoLOG) Q4H SUBQ 03/12/17 12:00 04/11/17 11:59 03/27/17 11:33 Insulin Detemir (Levemir) 5 units DAILY SUBQ 03/15/17 14:00 04/14/17 13:59 03/27/17 08:28 Norepinephrine Bitartrate 4 mg/ Dextrose 254 ml @ 0 mls/hr Q24H IV 03/12/17 07:30 04/11/17 07:29 Ondansetron HCl (Zofran) 4 mg Q6H PRN IVP Nausea & Vomiting 03/12/17 07:30 04/11/17 07:29 Polyethylene Glycol (Miralax) 17 gm DAILYPRN PRN GT Constipation 03/26/17 18:00 04/11/17 07:29 Vancomycin/Sodium Chloride 250 ml @ 166.667 mls/hr ONCE ONCE IVPB 03/27/17 17:00 03/27/17 18:29 Paul Amaya M.D. Mar 27, 2017 14:43
[2017-03-27] MEDS ORDERED: Vancomycin 750mg/NS 250ml 250 ML IVPB ONE (17:00)
--- NOTE | 2017-03-27 17:13 | General Progress Note ---
Assessment/Plan Assessment/Plan 1. Leukocytosis, secondary to underlying sepsis. Continue monitoring. --> Has been resolved --> WBC wnl 2. Anemia secondary to chronic disease.. --> transfuse if hgb is less than 8 or symptomatic --> monitor counts --> has been stable >8 --> occult blood negative and hiv panel negative 4. Coagulopathy, potentially secondary to underlying sepsis as well. --> PTT and prothrombin time now WNL --> continue to monitor 5. Respiratory failure, trach planned for tomorrow 6. Symptomatic bradycardia --> cardiology following, planned pacemaker placement Subjective Constitutional: Reports: no symptoms HEENT: Reports: no symptoms Cardiovascular: Reports: no symptoms Respiratory: Reports: no symptoms Gastrointestinal/Abdominal: Reports: no symptoms Genitourinary: Reports: no symptoms Neurologic/Psychiatric: Reports: no symptoms Endocrine: Reports: no symptoms Hematologic/Lymphatic: Reports: no symptoms Allergies: Coded Allergies: LORAZEPAM (Unverified Allergy, Unknown, 03/02/17) METOCLOPRAMIDE (Unverified Allergy, Unknown, 03/02/17) QUETIAPINE (Unverified Allergy, Unknown, 03/02/17) ZOLPIDEM (Unverified Allergy, Unknown, 03/02/17) Subjective awake, weak Objective Last 24 Hour Vital Signs Date Time Temp Pulse Resp B/P (MAP) Pulse Ox O2 Delivery O2 Flow Rate FiO2 03/27/17 16:33 60 18 30 03/27/17 16:00 98.6 77 18 145/35 100 Mechanical Ventilator 03/27/17 16:00 77 03/27/17 16:00 30 03/27/17 15:00 60 18 135/42 100 Mechanical Ventilator 03/27/17 14:57 60 18 30 03/27/17 14:00 64 21 147/73 100 Mechanical Ventilator 03/27/17 13:10 76 26 30 03/27/17 13:00 55 18 132/43 100 Mechanical Ventilator 03/27/17 12:00 30 03/27/17 12:00 60 03/27/17 12:00 99.0 60 18 130/40 100 Mechanical Ventilator 03/27/17 11:00 60 24 129/38 100 Mechanical Ventilator 03/27/17 10:40 60 18 30 03/27/17 10:00 66 18 129/90 100 Mechanical Ventilator 30 03/27/17 09:10 60 18 30 03/27/17 09:00 60 18 129/42 100 Mechanical Ventilator 30 03/27/17 08:00 60 03/27/17 08:00 30 03/27/17 08:00 98.6 60 29 126/44 100 Mechanical Ventilator 30 03/27/17 07:26 135/44 03/27/17 07:19 60 18 30 03/27/17 07:00 60 18 135/44 100 Mechanical Ventilator 30 03/27/17 06:00 60 18 130/45 100 Mechanical Ventilator 30 03/27/17 05:20 65 19 30 03/27/17 05:00 64 25 131/81 100 Mechanical Ventilator 30 03/27/17 04:00 70 03/27/17 04:00 98.5 70 18 146/49 100 Mechanical Ventilator 30 03/27/17 04:00 30 03/27/17 03:01 73 19 30 03/27/17 03:00 64 20 144/89 99 Mechanical Ventilator 30 03/27/17 02:00 73 23 161/87 99 Mechanical Ventilator 30 03/27/17 01:30 63 18 30 03/27/17 01:00 72 18 152/71 100 Mechanical Ventilator 30 03/27/17 00:00 66 03/27/17 00:00 98.3 68 20 137/48 99 Mechanical Ventilator 30 03/27/17 00:00 30 03/26/17 23:00 77 24 142/59 99 Mechanical Ventilator 30 03/26/17 22:54 72 18 30 03/26/17 22:00 74 18 147/59 100 Mechanical Ventilator 03/26/17 21:00 75 20 147/62 100 Mechanical Ventilator 30 03/26/17 20:55 80 20 30 03/26/17 20:00 62 03/26/17 20:00 30 03/26/17 20:00 97.3 77 18 145/63 100 Mechanical Ventilator 30 03/26/17 19:23 75 10 100 03/26/17 19:20 82 18 30 Intake and Output 03/27/17 03/28/17 19:00 07:00 Intake Total 605 ml Output Total 285 ml Balance 320 ml Free Water 200 ml Tube Feeding 405 ml Output Urine Total 285 ml Laboratory Tests 03/27/17 03:45: White Blood Count 8.5, Red Blood Count 2.42L, Hemoglobin 8.2L, Hematocrit 24.7L , Mean Corpuscular Volume 102H, Mean Corpuscular Hemoglobin 33.7H, Mean Corpuscular Hemoglobin Concent 33.1, Red Cell Distribution Width 14.9H, Platelet Count 219, Mean Platelet Volume 8.7, Neutrophils (%) (Auto) 77.5H, Lymphocytes (%) (Auto) 11.0L, Monocytes (%) (Auto) 7.1, Eosinophils (%) (Auto) 2.4, Basophils (%) (Auto) 1.9, Sodium Level 136, Potassium Level 3.9, Chloride Level 103, Carbon Dioxide Level 23, Anion Gap 10, Blood Urea Nitrogen 27H, Creatinine 0.8, Estimat Glomerular Filtration Rate , Glucose Level 253#H, Calcium Level 8.6, Phosphorus Level 3.3, Magnesium Level 1.9, Total Bilirubin 0.3, Aspartate Amino Transf (AST/SGOT) 18, Alanine Aminotransferase (ALT/SGPT) 9 , Alkaline Phosphatase 87, Total Protein 5.2L, Albumin 2.3L, Globulin 2.9, Albumin/Globulin Ratio 0.7L 03/27/17 09:00: Arterial Blood pH 7.496H, Arterial Blood Partial Pressure CO2 28.6L, Arterial Blood Partial Pressure O2 93.0, Arterial Blood HCO3 21.6L, Arterial Blood Oxygen Saturation 96.2, Arterial Blood Base Excess -0.9, Shaun Test Positive Height (Feet): 5 Height (Inches): 2.00 Weight (Pounds): 135 General Appearance: no apparent distress EENT: normal ENT inspection Neck: normal alignment Abdomen: normal bowel sounds Edema: no edema noted Pedal (L), no edema noted Pedal (R) Neurologic: php magento developer II-XII grossly normal Skin: warm/dry Saul Luque Mar 27, 2017 17:13
--- NOTE | 2017-03-27 18:48 | Cardiology Progress Note ---
Assessment/Plan Assessment/Plan av block s/p PPI septic shock resolved Bibasilar staph aureus pneumonia, completed D14 IV vanc on 03/26/17 Acute respiratory failure. Acute renal failure, prerenal Diabetes type 2 Dementia. Methicillin resistant Staphylococcus aureus colonization. lactic acidosis, resolved CoNS bacteremia vs contamination (03/12), s/p >7D IV vanc. consider treated. s/p ppi yest by dr michelle tele ntoed sinus intermittent v pacing bnp in am d/w son d/w rn d/w dr mihcelle plans for trach noted if cauterization is needed will need to have a magnet placed on the pacer to temporarily disable sensing so that cauterization artifact would not shut off pacer and remove magnet after cauterization or case if finished Subjective ROS Limited/Unobtainable: Yes Objective Last 24 Hour Vital Signs Date Time Temp Pulse Resp B/P (MAP) Pulse Ox O2 Delivery O2 Flow Rate FiO2 03/27/17 16:33 60 18 30 03/27/17 16:00 98.6 77 18 145/35 100 Mechanical Ventilator 30 03/27/17 16:00 77 03/27/17 16:00 30 03/27/17 15:00 60 18 135/42 100 Mechanical Ventilator 30 03/27/17 14:57 60 18 30 03/27/17 14:00 64 21 147/73 100 Mechanical Ventilator 30 03/27/17 13:10 76 26 30 03/27/17 13:00 55 18 132/43 100 Mechanical Ventilator 30 03/27/17 12:00 30 03/27/17 12:00 60 03/27/17 12:00 99.0 60 18 130/40 100 Mechanical Ventilator 30 03/27/17 11:00 60 24 129/38 100 Mechanical Ventilator 30 03/27/17 10:40 60 18 30 03/27/17 10:00 66 18 129/90 100 Mechanical Ventilator 30 03/27/17 09:10 60 18 30 03/27/17 09:00 60 18 129/42 100 Mechanical Ventilator 30 03/27/17 08:00 60 03/27/17 08:00 30 03/27/17 08:00 98.6 60 29 126/44 100 Mechanical Ventilator 30 03/27/17 07:26 135/44 03/27/17 07:19 60 18 30 03/27/17 07:00 60 18 135/44 100 Mechanical Ventilator 30 03/27/17 06:00 60 18 130/45 100 Mechanical Ventilator 30 03/27/17 05:20 65 19 30 03/27/17 05:00 64 25 131/81 100 Mechanical Ventilator 30 03/27/17 04:00 70 03/27/17 04:00 98.5 70 18 146/49 100 Mechanical Ventilator 30 03/27/17 04:00 30 03/27/17 03:01 73 19 30 03/27/17 03:00 64 20 144/89 99 Mechanical Ventilator 30 03/27/17 02:00 73 23 161/87 99 Mechanical Ventilator 30 03/27/17 01:30 63 18 30 03/27/17 01:00 72 18 152/71 100 Mechanical Ventilator 03/27/17 00:00 66 03/27/17 00:00 98.3 68 20 137/48 99 Mechanical Ventilator 30 03/27/17 00:00 30 03/26/17 23:00 77 24 142/59 99 Mechanical Ventilator 03/26/17 22:54 72 18 30 03/26/17 22:00 74 18 147/59 100 Mechanical Ventilator 30 03/26/17 21:00 75 20 147/62 100 Mechanical Ventilator 30 03/26/17 20:55 80 20 30 03/26/17 20:00 62 03/26/17 20:00 30 03/26/17 20:00 97.3 77 18 145/63 100 Mechanical Ventilator 30 03/26/17 19:23 75 10 100 03/26/17 19:20 82 18 30 General Appearance: no apparent distress, on vent, patient on isolation Neck: supple Cardiovascular: normal rate, regular rhythm Respiratory/Chest: lungs clear - upper lung post Abdomen: normal bowel sounds, non tender, soft Extremities: trace edema Intake and Output 03/27/17 03/28/17 19:00 07:00 Intake Total 605 ml Output Total 285 ml Balance 320 ml Free Water 200 ml Tube Feeding 405 ml Output Urine Total 285 ml Laboratory Tests Test 03/27/17 03:45 03/27/17 09:00 White Blood Count 8.5 K/UL (4.8-10.8) Red Blood Count 2.42 M/UL (4.20-5.40) L Hemoglobin 8.2 G/DL (12.0-16.0) L Hematocrit 24.7 % (37.0-47.0) L Mean Corpuscular Volume 102 FL (80-99) H Mean Corpuscular Hemoglobin 33.7 PG (27.0-31.0) H Mean Corpuscular Hemoglobin Concent 33.1 G/DL (32.0-36.0) Red Cell Distribution Width 14.9 % (11.6-14.8) H Platelet Count 219 K/UL (150-450) Mean Platelet Volume 8.7 FL (6.5-10.1) Neutrophils (%) (Auto) 77.5 % (45.0-75.0) H Lymphocytes (%) (Auto) 11.0 % (20.0-45.0) L Monocytes (%) (Auto) 7.1 % (1.0-10.0) Eosinophils (%) (Auto) 2.4 % (0.0-3.0) Basophils (%) (Auto) 1.9 % (0.0-2.0) Sodium Level 136 mEQ/L (135-145) Potassium Level 3.9 mEQ/L (3.4-4.9) Chloride Level 103 mEQ/L (98-107) Carbon Dioxide Level 23 mEQ/L (20-30) Anion Gap 10 (5-15) Blood Urea Nitrogen 27 mg/dL (7-23) H Creatinine 0.8 mg/dL (0.5-0.9) Estimat Glomerular Filtration Rate mL/min (>60) Glucose Level 253 mg/dL (74-106) #H Calcium Level 8.6 mg/dL (8.6-10.2) Phosphorus Level 3.3 mg/dL (2.5-4.8) Magnesium Level 1.9 mg/dL (1.7-2.5) Total Bilirubin 0.3 mg/dL (0.0-1.2) Aspartate Amino Transf (AST/SGOT) 18 U/L (5-40) Alanine Aminotransferase (ALT/SGPT) 9 U/L (3-33) Alkaline Phosphatase 87 U/L (35-104) Total Protein 5.2 g/dL (6.6-8.7) L Albumin 2.3 g/dL (3.5-5.2) L Globulin 2.9 g/dL Albumin/Globulin Ratio 0.7 (1.0-2.7) L Arterial Blood pH 7.496 (7.350-7.450) Arterial Blood Partial Pressure CO2 28.6 mmHg (35.0-45.0) L Arterial Blood Partial Pressure O2 93.0 mmHg (75.0-100.0) Arterial Blood HCO3 21.6 mmol/L (22.0-26.0) L Arterial Blood Oxygen Saturation 96.2 % (92.0-98.0) Arterial Blood Base Excess -0.9 Shaun Test Positive SYLVIA HARRIS Mar 27, 2017 18:48
[2017-03-28] VITALS (24 sets, daily range): BP systolic 115–170; BP diastolic 38–96
[2017-03-28] MEDS: NovoLOG Insulin Flexpen SUBQ SCH ×7 (04:00→23:58)
[2017-03-28] MEDS: Levemir Flexpen SUBQ SCH (08:14)
[2017-03-28] MEDS: Heparin 5000 units/ml inj SUBQ SCH ×2 (08:15→20:09)
[2017-03-28] MEDS: Famotidine 20 MG/ 2ML VIAL IVP SCH (08:29)
[2017-03-28 09:35] LABS: ABG ALLEN TEST POSITIVE; ABG BASE EXCESS 1.2; ABG PCO2 32.1 mmHg (35.0-45.0)
[2017-03-28 09:49] LABS: ALANINE AMINOTRANSFERASE 8 U/L (3-33); ALBUMIN/GLOBULIN RATIO 0.7 (1.0-2.7); ANION GAP 11 (5-15); ASPARTATE AMINO TRANSFERASE 17 U/L (5-40); CARBON DIOXIDE 23 mEQ/L (20-30); CHLORIDE 103 mEQ/L (98-107); CREATININE 0.6 mg/dL (0.5-0.9); HEMOLYSIS 0; MAGNESIUM 1.7 mg/dL (1.7-2.5); PHOSPHORUS 2.7 mg/dL (2.5-4.8); POTASSIUM 3.8 mEQ/L (3.4-4.9); SODIUM 137 mEQ/L (135-145); TOTAL PROTEIN 5.8 g/dL (6.6-8.7)
[2017-03-28 09:56] LABS: BASOPHILS % (AUTO) 1.6 % (0.0-2.0); EOSINOPHILS % (AUTO) 2.6 % (0.0-3.0); LYMPHOCYTES % (AUTO) 12.4 % (20.0-45.0); MEAN CORPUSCULAR HEMOGLOBIN 34.2 PG (27.0-31.0); MEAN CORPUSCULAR HGB CONC 33.9 G/DL (32.0-36.0); MEAN CORPUSCULAR VOLUME 101 FL (80-99); MONOCYTES % (AUTO) 12.6 % (1.0-10.0); NEUTROPHILS % (AUTO) 70.9 % (45.0-75.0); PLATELET COUNT 174 K/UL (150-450); RED BLOOD COUNT 2.37 M/UL (4.20-5.40); RED CELL DISTRIBUTION WIDTH 14.4 % (11.6-14.8); WHITE BLOOD COUNT 7.1 K/UL (4.8-10.8)
--- NOTE | 2017-03-28 10:17 | General Progress Note ---
Progress Note Progress Note Surgery: patient seen and examined at bedside. no acute events. had pacemaker placed and since stable. afebrile, HD stable, VSS, exam benign. -trach today -will follow with orders post op Ranjan Troy Mar 28, 2017 10:17
--- NOTE | 2017-03-28 10:17 | Pre-Procedure Note/Attestation ---
Pre-Procedure Note/Attestation Complete Prior to Procedure Planned Procedure: not applicable Procedure Narrative: Tracheostomy Indications for Procedure Pre-Operative Diagnosis: respiratory failure requiring prolonged ventilation Attestation I attest that I discussed the nature of the procedure; its benefits; risks and complications; and alternatives (and the risks and benefits of such alternatives ), prior to the procedure, with the patient (or the patient's legal ambulatory service representative). I attest that, if there was a reasonable possibility of needing a blood transfusion, the patient (or the patient's legal ambulatory service representative) was given the [facility] standardized written summary, pursuant to the [place] Blood Safety Act ([place] Health and Safety Code # 1645, as amended). I attest that I re-evaluated the patient just prior to the surgery and that there has been no change in the patient's H&P, except as documented below: Ranjan Troy Mar 28, 2017 10:17
--- NOTE | 2017-03-28 10:25 | Diagnostic Imaging Report ---
Indication: DYSPNEA Technique: One view of the chest Comparison: 03/26/2017 Findings: Endotracheal tube appears slightly advanced as compared to prior exam, tip projecting just above the pema. Bilateral infiltrates, right greater than left, are unchanged. Left chest pacemaker, right upper quadrant surgical clips are again demonstrated. Retrocardiac consolidation persists Impression: Unchanged, over 2 days, findings as above.
--- NOTE | 2017-03-28 10:26 | Pulmonolgy Critical Care Note ---
Critical Care - Asmt/Plan Problems: (1) Respiratory failure requiring intubation (2) Pneumonia (3) Anemia (4) Advanced dementia (5) Feeding by G-tube (6) Severe sepsis Respiratory: monitor respiratory rate, adjust FIO2, CXR, other - for trach today Cardiac: continue to monitor HR/BP Renal: F/U I&O, keep IV fluid, check electrolytes Infectious Disease: check cultures, continue antibiotics Gastrointestinal: continue feedings/current rate Endocrine: monitor blood sugar, check TSH, check HgA1C, continue sliding scale insulin Hematologic: monitor H/H, transfuse if hgb<8.5 Neurologic: PRN Ativan, PRN Morphine, keep patient comfortable Prophylaxis: Protonix, Heparin Notes Reviewed: copyright expert, cardio, renal Discussed with: nurses, consultants, case management assistantmachining manager - Objective Last 24 Hour Vital Signs Date Time Temp Pulse Resp B/P (MAP) Pulse Ox O2 Delivery O2 Flow Rate FiO2 03/28/17 10:00 63 18 150/87 100 Mechanical Ventilator 30 03/28/17 09:00 64 20 150/51 100 Mechanical Ventilator 30 03/28/17 08:38 60 18 30 03/28/17 08:00 30 03/28/17 08:00 98.5 60 16 146/40 100 Mechanical Ventilator 30 03/28/17 08:00 60 03/28/17 07:10 60 18 30 03/28/17 07:00 60 20 131/40 100 Mechanical Ventilator 30 03/28/17 06:00 60 20 134/41 100 Mechanical Ventilator 30 03/28/17 05:23 60 18 30 03/28/17 05:00 66 20 149/40 100 Mechanical Ventilator 30 03/28/17 04:00 66 03/28/17 04:00 30 03/28/17 04:00 66 22 170/72 100 Mechanical Ventilator 30 03/28/17 04:00 98.0 03/28/17 03:00 80 20 30 03/28/17 03:00 65 19 155/96 100 Mechanical Ventilator 30 03/28/17 02:00 67 21 163/54 100 Mechanical Ventilator 30 03/28/17 01:00 67 22 135/46 100 Mechanical Ventilator 30 03/28/17 00:50 60 18 30 03/28/17 00:00 64 03/28/17 00:00 97.5 64 18 152/51 100 Mechanical Ventilator 30 03/28/17 00:00 30 03/27/17 23:00 69 22 145/104 100 Mechanical Ventilator 03/27/17 22:40 63 18 30 03/27/17 22:00 61 20 106/81 100 Mechanical Ventilator 30 03/27/17 21:00 60 18 138/52 100 Mechanical Ventilator 03/27/17 20:53 60 18 30 03/27/17 20:00 79 03/27/17 20:00 30 03/27/17 20:00 98.7 79 28 126/50 100 Mechanical Ventilator 30 03/27/17 19:08 60 18 30 03/27/17 19:00 61 18 144/48 100 Mechanical Ventilator 30 03/27/17 18:00 76 18 138/87 100 Mechanical Ventilator 03/27/17 17:00 60 18 134/76 100 Mechanical Ventilator 03/27/17 16:33 60 18 30 03/27/17 16:00 98.6 77 18 145/35 100 Mechanical Ventilator 03/27/17 16:00 77 03/27/17 16:00 30 03/27/17 15:00 60 18 135/42 100 Mechanical Ventilator 30 03/27/17 14:57 60 18 30 03/27/17 14:00 64 21 147/73 100 Mechanical Ventilator 03/27/17 13:10 76 26 30 03/27/17 13:00 55 18 132/43 100 Mechanical Ventilator 03/27/17 12:00 30 03/27/17 12:00 60 03/27/17 12:00 99.0 60 18 130/40 100 Mechanical Ventilator 03/27/17 11:00 60 24 129/38 100 Mechanical Ventilator 03/27/17 10:40 60 18 30 Status: sedated Condition: critical HEENT: atraumatic Neck: full ROM Lungs: clear Heart: HR/BP stable, HR/BP unstable Abdomen: non-tender, active bowel sounds Extremities: no C/C/E, edema Decubiti: location, stage Accucheck: 225 Critical Care - Subjective ROS Limited/Unobtainable: No Interval Events: scheduled for tracheostomy Condition: critical EKG Rhythm: Sinus Rhythm FI02: 30 Vent Support Breath Rate: 18 Vent Support Mode: AC Vent Tidal Volume: 500 Sputum Amount: Small PEEP: 5.0 PIP: 33 Tube Feeding Amount: 0 I&O: Intake and Output 03/28/17 03/29/17 19:00 07:00 Intake Total 50 ml Output Total 110 ml Balance -60 ml Free Water 50 ml Output Urine Total 110 ml CXR: no changes, ET-Tube: 7.0 ET Position: 21 Labs: Laboratory Tests Test 03/28/17 04:00 03/28/17 09:05 Arterial Blood pH 7.490 (7.350-7.450) Arterial Blood Partial Pressure CO2 32.1 mmHg (35.0-45.0) L Arterial Blood Partial Pressure O2 92.8 mmHg (75.0-100.0) Arterial Blood HCO3 24.3 mmol/L (22.0-26.0) Arterial Blood Oxygen Saturation 96.6 % (92.0-98.0) Arterial Blood Base Excess 1.2 Shaun Test Positive White Blood Count 7.1 K/UL (4.8-10.8) Red Blood Count 2.37 M/UL (4.20-5.40) L Hemoglobin 8.1 G/DL (12.0-16.0) L Hematocrit 23.9 % (37.0-47.0) L Mean Corpuscular Volume 101 FL (80-99) H Mean Corpuscular Hemoglobin 34.2 PG (27.0-31.0) H Mean Corpuscular Hemoglobin Concent 33.9 G/DL (32.0-36.0) Red Cell Distribution Width 14.4 % (11.6-14.8) Platelet Count 174 K/UL (150-450) Mean Platelet Volume 10.0 FL (6.5-10.1) Neutrophils (%) (Auto) 70.9 % (45.0-75.0) Lymphocytes (%) (Auto) 12.4 % (20.0-45.0) L Monocytes (%) (Auto) 12.6 % (1.0-10.0) H Eosinophils (%) (Auto) 2.6 % (0.0-3.0) Basophils (%) (Auto) 1.6 % (0.0-2.0) Sodium Level 137 mEQ/L (135-145) Potassium Level 3.8 mEQ/L (3.4-4.9) Chloride Level 103 mEQ/L (98-107) Carbon Dioxide Level 23 mEQ/L (20-30) Anion Gap 11 (5-15) Blood Urea Nitrogen 22 mg/dL (7-23) Creatinine 0.6 mg/dL (0.5-0.9) Estimat Glomerular Filtration Rate mL/min (>60) Glucose Level 210 mg/dL (74-106) H Calcium Level 9.0 mg/dL (8.6-10.2) Phosphorus Level 2.7 mg/dL (2.5-4.8) Magnesium Level 1.7 mg/dL (1.7-2.5) Total Bilirubin 0.4 mg/dL (0.0-1.2) Aspartate Amino Transf (AST/SGOT) 17 U/L (5-40) Alanine Aminotransferase (ALT/SGPT) 8 U/L (3-33) Alkaline Phosphatase 87 U/L (35-104) Total Protein 5.8 g/dL (6.6-8.7) L Albumin 2.5 g/dL (3.5-5.2) L Globulin 3.3 g/dL Albumin/Globulin Ratio 0.7 (1.0-2.7) L ZAIRA ROSALES Mar 28, 2017 10:26
--- NOTE | 2017-03-28 11:45 | Anethesia Preoperative Eval ---
Anesthesia Pre-op PMH/ROS General Date of Evaluation: Mar 28, 2017 ASA Score: ASA 4 Mallampati Score Class I : Soft palate, uvula, fauces, pillars visible Class II: Soft palate, uvula, fauces visible Class III: Soft palate, base of uvula visible Class IV: Only hard plate visible Mallampati Classification: Class III - Intubated Allergies: Coded Allergies: LORAZEPAM (Unverified Allergy, Unknown, 03/02/17) METOCLOPRAMIDE (Unverified Allergy, Unknown, 03/02/17) QUETIAPINE (Unverified Allergy, Unknown, 03/02/17) ZOLPIDEM (Unverified Allergy, Unknown, 03/02/17) Anesthesia Pre-op Phys. Exam Physician Exam Last Vital Signs Date Time Temp Pulse Resp B/P (MAP) Pulse Ox O2 Delivery O2 Flow Rate FiO2 03/28/17 11:00 60 19 144/40 100 Mechanical Ventilator 30 03/28/17 08:00 98.5 Airway Exam Mallampati Score: Class III - intubated Anesthesia Pre-op A/P Labs Hematology Test 03/28/17 09:05 White Blood Count 7.1 K/UL (4.8-10.8) Red Blood Count 2.37 M/UL (4.20-5.40) L Hemoglobin 8.1 G/DL (12.0-16.0) L Hematocrit 23.9 % (37.0-47.0) L Mean Corpuscular Volume 101 FL (80-99) H Mean Corpuscular Hemoglobin 34.2 PG (27.0-31.0) H Mean Corpuscular Hemoglobin Concent 33.9 G/DL (32.0-36.0) Red Cell Distribution Width 14.4 % (11.6-14.8) Platelet Count 174 K/UL (150-450) Mean Platelet Volume 10.0 FL (6.5-10.1) Neutrophils (%) (Auto) 70.9 % (45.0-75.0) Lymphocytes (%) (Auto) 12.4 % (20.0-45.0) L Monocytes (%) (Auto) 12.6 % (1.0-10.0) H Eosinophils (%) (Auto) 2.6 % (0.0-3.0) Basophils (%) (Auto) 1.6 % (0.0-2.0) Chemistry Test 03/28/17 09:05 Sodium Level 137 mEQ/L (135-145) Potassium Level 3.8 mEQ/L (3.4-4.9) Chloride Level 103 mEQ/L (98-107) Carbon Dioxide Level 23 mEQ/L (20-30) Anion Gap 11 (5-15) Blood Urea Nitrogen 22 mg/dL (7-23) Creatinine 0.6 mg/dL (0.5-0.9) Estimat Glomerular Filtration Rate mL/min (>60) Glucose Level 210 mg/dL (74-106) H Calcium Level 9.0 mg/dL (8.6-10.2) Phosphorus Level 2.7 mg/dL (2.5-4.8) Magnesium Level 1.7 mg/dL (1.7-2.5) Total Bilirubin 0.4 mg/dL (0.0-1.2) Aspartate Amino Transf (AST/SGOT) 17 U/L (5-40) Alanine Aminotransferase (ALT/SGPT) 8 U/L (3-33) Alkaline Phosphatase 87 U/L (35-104) Total Protein 5.8 g/dL (6.6-8.7) L Albumin 2.5 g/dL (3.5-5.2) L Globulin 3.3 g/dL Albumin/Globulin Ratio 0.7 (1.0-2.7) MONTANA ROSEN M.D. Mar 28, 2017 11:45
[2017-03-28] MEDS ORDERED: Lidocaine 1% 10mg/ml/Epi 0.005mg/ml 30ml vial INJ ONE (12:31)
[2017-03-28] MEDS ORDERED: Propofol 200mg/20ml IV ONE (13:24)
[2017-03-28] MEDS ORDERED: Zemuron 50mg/5ml Inj IV ONE (13:30)
[2017-03-28] MEDS ORDERED: Lidocaine 1% MPF 10mg/ml 5ml ONE (13:30)
[2017-03-28] MEDS ORDERED: fentaNYL 100 mcg/2 mL IV ONE (13:30)
--- NOTE | 2017-03-28 13:42 | Immediate Post-Op Evaluation ---
Immediate Post-Op Evalulation Immediate Post-Op Evalulation Procedure: permanent pacemaker placement Date of Evaluation: Mar 28, 2017 Time of Evaluation: 14:24 IV Fluids: 150 Blood Products: 0 Estimated Blood Loss: 2 Urinary Output: 0 Blood Pressure Systolic: 114 Blood Pressure Diastolic: 81 Pulse Rate: 60 Respiratory Rate: 18 O2 Sat by Pulse Oximetry: 100 Temperature (Fahrenheit): 97.2 Pain Score (1-10): 0 Nausea: No Vomiting: No Complications 0 Patient Status: no response - sedated, ventilated, none Hydration Status: adequate Drug: Ancef 1g Given Within 1 Hr of Incision: Yes MONTANA COHEN M.D. Mar 28, 2017 13:42
--- NOTE | 2017-03-28 13:50 | Wound Nurse Progress Note ---
Wound RN Progress Note Wound Consult #1 Sacral DTI pressure ulcer. DTI revealing as stage II. Good progress noted. will cont same wound care and recommendations. #2 Mid upper back stage II open blister. RESOLVED. #3 Right upper thigh open blister. Resolving with good progress. Will cont same wound care and recommendation. #4 Chemical burn on perineal area. Good progress noted with Lotrimin ointment. will cont same treatment and recommendations. STELLA HSIEH RN Mar 28, 2017 13:50
--- NOTE | 2017-03-28 14:39 | Brief Operative Note ---
Immediate Post Operative Note Operative Note Pre-op Diagnosis: respiratory failure requiring prolonged ventilation Procedure: Tracheostomy Findings: consistent w/pre-op dx studies Surgeon: Woodrow Anesthesiologist: Randy Anesthesia: general Specimen: none Complications: none Condition: stable Fluids: see records Estimated Blood Loss: minimal Drains: none Implant(s) used?: Yes - 8F Ranjan Gunter Mar 28, 2017 14:39
--- NOTE | 2017-03-28 16:05 | General Progress Note ---
Assessment/Plan Status: stable Assessment/Plan Respiratory failure requiring intubation Severe sepsis secondary to pneumonia, resolving UTI Acute cystitis without hematuria Pneumonia, non cavitary, w/o effusion Dementia Acute renal failure , Dehydration Hypoxemic respiratory failure Type 2 diabetes mellitus with hyperglycemia Proteinuria Plan: due Trach again for 03/28 Pulm support- Monitor renal parameters Urine studies- Avoid Nephrotoxics- Per Orders Subjective ROS Limited/Unobtainable: Yes Allergies: Coded Allergies: LORAZEPAM (Unverified Allergy, Unknown, 03/02/17) METOCLOPRAMIDE (Unverified Allergy, Unknown, 03/02/17) QUETIAPINE (Unverified Allergy, Unknown, 03/02/17) ZOLPIDEM (Unverified Allergy, Unknown, 03/02/17) Objective Last 24 Hour Vital Signs Date Time Temp Pulse Resp B/P (MAP) Pulse Ox O2 Delivery O2 Flow Rate FiO2 03/28/17 15:00 60 18 156/46 99 Mechanical Ventilator 03/28/17 14:30 55 24 30 03/28/17 14:27 60 18 100 03/28/17 14:25 60 18 115/38 100 Mechanical Ventilator 03/28/17 13:15 64 28 30 03/28/17 13:00 72 30 130/42 100 Mechanical Ventilator 03/28/17 12:00 60 03/28/17 12:00 98.7 67 24 156/75 100 Mechanical Ventilator 03/28/17 12:00 30 03/28/17 11:00 60 19 144/40 100 Mechanical Ventilator 03/28/17 10:42 60 18 30 03/28/17 10:00 63 18 150/87 100 Mechanical Ventilator 03/28/17 09:00 64 20 150/51 100 Mechanical Ventilator 30 03/28/17 08:38 60 18 30 03/28/17 08:00 30 03/28/17 08:00 98.5 60 16 146/40 100 Mechanical Ventilator 03/28/17 08:00 60 03/28/17 07:10 60 18 30 03/28/17 07:00 60 20 131/40 100 Mechanical Ventilator 03/28/17 06:00 60 20 134/41 100 Mechanical Ventilator 03/28/17 05:23 60 18 30 03/28/17 05:00 66 20 149/40 100 Mechanical Ventilator 30 03/28/17 04:00 66 03/28/17 04:00 30 03/28/17 04:00 66 22 170/72 100 Mechanical Ventilator 30 03/28/17 04:00 98.0 03/28/17 03:00 80 20 30 03/28/17 03:00 65 19 155/96 100 Mechanical Ventilator 30 03/28/17 02:00 67 21 163/54 100 Mechanical Ventilator 30 03/28/17 01:00 67 22 135/46 100 Mechanical Ventilator 30 03/28/17 00:50 60 18 30 03/28/17 00:00 64 03/28/17 00:00 97.5 64 18 152/51 100 Mechanical Ventilator 30 03/28/17 00:00 30 03/27/17 23:00 69 22 145/104 100 Mechanical Ventilator 03/27/17 22:40 63 18 30 03/27/17 22:00 61 20 106/81 100 Mechanical Ventilator 30 03/27/17 21:00 60 18 138/52 100 Mechanical Ventilator 03/27/17 20:53 60 18 30 03/27/17 20:00 79 03/27/17 20:00 30 03/27/17 20:00 98.7 79 28 126/50 100 Mechanical Ventilator 30 03/27/17 19:08 60 18 30 03/27/17 19:00 61 18 144/48 100 Mechanical Ventilator 30 03/27/17 18:00 76 18 138/87 100 Mechanical Ventilator 30 03/27/17 17:00 60 18 134/76 100 Mechanical Ventilator 30 03/27/17 16:33 60 18 30 Intake and Output 03/28/17 03/29/17 19:00 07:00 Intake Total 50 ml Output Total 305 ml Balance -255 ml Free Water 50 ml Output Urine Total 305 ml Laboratory Tests 03/28/17 04:00: Arterial Blood pH 7.490H, Arterial Blood Partial Pressure CO2 32.1L, Arterial Blood Partial Pressure O2 92.8, Arterial Blood HCO3 24.3, Arterial Blood Oxygen Saturation 96.6, Arterial Blood Base Excess 1.2, Shaun Test Positive 03/28/17 09:05: White Blood Count 7.1, Red Blood Count 2.37L, Hemoglobin 8.1L, Hematocrit 23.9L , Mean Corpuscular Volume 101H, Mean Corpuscular Hemoglobin 34.2H, Mean Corpuscular Hemoglobin Concent 33.9, Red Cell Distribution Width 14.4, Platelet Count 174, Mean Platelet Volume 10.0, Neutrophils (%) (Auto) 70.9, Lymphocytes ( %) (Auto) 12.4L, Monocytes (%) (Auto) 12.6H, Eosinophils (%) (Auto) 2.6, Basophils (%) (Auto) 1.6, Sodium Level 137, Potassium Level 3.8, Chloride Level 103, Carbon Dioxide Level 23, Anion Gap 11, Blood Urea Nitrogen 22, Creatinine 0.6, Estimat Glomerular Filtration Rate , Glucose Level 210H, Calcium Level 9.0 , Phosphorus Level 2.7, Magnesium Level 1.7, Total Bilirubin 0.4, Aspartate Amino Transf (AST/SGOT) 17, Alanine Aminotransferase (ALT/SGPT) 8, Alkaline Phosphatase 87, Total Protein 5.8L, Albumin 2.5L, Globulin 3.3, Albumin/ Globulin Ratio 0.7L Height (Feet): 5 Height (Inches): 2.00 Weight (Pounds): 140 General Appearance: no apparent distress, lethargic EENT: other - intubated Respiratory/Chest: decreased breath sounds Abdomen: distended Objective PE not changed IRWIN DAMON Mar 28, 2017 16:05
[2017-03-28] MEDS ORDERED: Tubing IV Secondary IV ONE (16:15)
[2017-03-28] MEDS ORDERED: NS 275ml ONE (16:15)
[2017-03-28] MEDS: Artificial Tears 1.4% Op Soln BOTH EYES PRN (18:34)
--- NOTE | 2017-03-28 18:55 | Infectious Diseases Prog Note ---
Assessment/Plan Assessment/Plan IMPRESS IMPRESSION: 1. Severe sepsis with multiorgan failure,s/p, secondary to MRSA pneumonia, non cavitary, w/o effusion s/p recent admission for hypoxemic resp failure and pneumonia, treated with D#7 IV vanc/cefepime completed on [id number] ucx neg 03/12 blood cx negative for MRSA/MSSA 2. Bibasilar staph aureus pneumonia, s/p D14 IV vanc completed on 03/26/17 3. Acute respiratory failure., SP trach 03/28/17 4. Acute renal failure, prerenal, sp 5. Diabetes type 2 with hyperglycemia and proteinuria 6. Dementia. 7. Methicillin resistant Staphylococcus aureus colonization. 8. lactic acidosis, resolved 9. CoNS bacteremia vs contamination (03/12), s/p >7D IV vanc. consider treated. 10. mild R>L Tinea cruris on clotrimazole, s/p 11. Cystitis, sterile, c/b microscopic hematuria. 12. bradycardia (CHB), s/p L groin temp venous pacemaker 03/25/17. s/p temp pacer removal 03/26, s/p L chest wall permanent pacemaker 03/26/17. 13. s/p TTE on [id number] with: Trace aortic regurgitation. Mild mitral regurgitation. Mitral inflow velocities indicates possible pseudo normalization pattern implying moderately elevated left atrial pressure (Grade II). Mild tricuspid regurgitation. Tricuspid systolic velocities suggests peak right ventricular systolic pressure of 37 mmHg, consistent with borderline mild pulmonary hypertension. Plan: --Monitor off abx (03/27/17 s/p IV vancomycin D#14) (03/15 s/p IV meropenem D#4) --monitor CBC --monitor temp curve --s/p surg consult, pending trach -- off of pressors Subjective Allergies: Coded Allergies: LORAZEPAM (Unverified Allergy, Unknown, 03/02/17) METOCLOPRAMIDE (Unverified Allergy, Unknown, 03/02/17) QUETIAPINE (Unverified Allergy, Unknown, 03/02/17) ZOLPIDEM (Unverified Allergy, Unknown, 03/02/17) Subjective SP trach Objective Vital Signs Last 24 Hour Vital Signs Date Time Temp Pulse Resp B/P (MAP) Pulse Ox O2 Delivery O2 Flow Rate FiO2 03/28/17 18:00 63 22 152/72 100 Mechanical Ventilator 30 03/28/17 17:00 65 19 153/52 100 Mechanical Ventilator 30 03/28/17 16:51 64 25 30 03/28/17 16:00 30 03/28/17 16:00 62 03/28/17 16:00 98.8 62 18 161/50 100 Mechanical Ventilator 30 03/28/17 15:00 60 18 156/46 99 Mechanical Ventilator 30 03/28/17 14:30 55 24 30 03/28/17 14:27 60 18 100 03/28/17 14:25 60 18 115/38 100 Mechanical Ventilator 30 03/28/17 13:15 64 28 30 03/28/17 13:00 72 30 130/42 100 Mechanical Ventilator 30 03/28/17 12:00 60 03/28/17 12:00 98.7 67 24 156/75 100 Mechanical Ventilator 30 03/28/17 12:00 30 03/28/17 11:00 60 19 144/40 100 Mechanical Ventilator 30 03/28/17 10:42 60 18 30 03/28/17 10:00 63 18 150/87 100 Mechanical Ventilator 30 03/28/17 09:00 64 20 150/51 100 Mechanical Ventilator 30 03/28/17 08:38 60 18 30 03/28/17 08:00 30 03/28/17 08:00 98.5 60 16 146/40 100 Mechanical Ventilator 30 03/28/17 08:00 60 03/28/17 07:10 60 18 30 03/28/17 07:00 60 20 131/40 100 Mechanical Ventilator 30 03/28/17 06:00 60 20 134/41 100 Mechanical Ventilator 30 03/28/17 05:23 60 18 30 03/28/17 05:00 66 20 149/40 100 Mechanical Ventilator 30 03/28/17 04:00 66 03/28/17 04:00 30 03/28/17 04:00 66 22 170/72 100 Mechanical Ventilator 30 03/28/17 04:00 98.0 03/28/17 03:00 80 20 30 03/28/17 03:00 65 19 155/96 100 Mechanical Ventilator 30 03/28/17 02:00 67 21 163/54 100 Mechanical Ventilator 30 03/28/17 01:00 67 22 135/46 100 Mechanical Ventilator 30 03/28/17 00:50 60 18 30 03/28/17 00:00 64 03/28/17 00:00 97.5 64 18 152/51 100 Mechanical Ventilator 30 03/28/17 00:00 30 03/27/17 23:00 69 22 145/104 100 Mechanical Ventilator 30 03/27/17 22:40 63 18 30 03/27/17 22:00 61 20 106/81 100 Mechanical Ventilator 30 03/27/17 21:00 60 18 138/52 100 Mechanical Ventilator 30 03/27/17 20:53 60 18 30 03/27/17 20:00 79 03/27/17 20:00 30 03/27/17 20:00 98.7 79 28 126/50 100 Mechanical Ventilator 30 03/27/17 19:08 60 18 30 03/27/17 19:00 61 18 144/48 100 Mechanical Ventilator 30 Height (Feet): 5 Height (Inches): 2.00 Weight (Pounds): 140 HEENT: anicteric Respiratory/Chest: no respiratory distress Cardiovascular: regularly irregular Abdomen: non distended Laboratory Tests Test 03/28/17 04:00 03/28/17 09:05 Arterial Blood pH 7.490 (7.350-7.450) Arterial Blood Partial Pressure CO2 32.1 mmHg (35.0-45.0) L Arterial Blood Partial Pressure O2 92.8 mmHg (75.0-100.0) Arterial Blood HCO3 24.3 mmol/L (22.0-26.0) Arterial Blood Oxygen Saturation 96.6 % (92.0-98.0) Arterial Blood Base Excess 1.2 Shaun Test Positive White Blood Count 7.1 K/UL (4.8-10.8) Red Blood Count 2.37 M/UL (4.20-5.40) L Hemoglobin 8.1 G/DL (12.0-16.0) L Hematocrit 23.9 % (37.0-47.0) L Mean Corpuscular Volume 101 FL (80-99) H Mean Corpuscular Hemoglobin 34.2 PG (27.0-31.0) H Mean Corpuscular Hemoglobin Concent 33.9 G/DL (32.0-36.0) Red Cell Distribution Width 14.4 % (11.6-14.8) Platelet Count 174 K/UL (150-450) Mean Platelet Volume 10.0 FL (6.5-10.1) Neutrophils (%) (Auto) 70.9 % (45.0-75.0) Lymphocytes (%) (Auto) 12.4 % (20.0-45.0) L Monocytes (%) (Auto) 12.6 % (1.0-10.0) H Eosinophils (%) (Auto) 2.6 % (0.0-3.0) Basophils (%) (Auto) 1.6 % (0.0-2.0) Sodium Level 137 mEQ/L (135-145) Potassium Level 3.8 mEQ/L (3.4-4.9) Chloride Level 103 mEQ/L (98-107) Carbon Dioxide Level 23 mEQ/L (20-30) Anion Gap 11 (5-15) Blood Urea Nitrogen 22 mg/dL (7-23) Creatinine 0.6 mg/dL (0.5-0.9) Estimat Glomerular Filtration Rate mL/min (>60) Glucose Level 210 mg/dL (74-106) H Calcium Level 9.0 mg/dL (8.6-10.2) Phosphorus Level 2.7 mg/dL (2.5-4.8) Magnesium Level 1.7 mg/dL (1.7-2.5) Total Bilirubin 0.4 mg/dL (0.0-1.2) Aspartate Amino Transf (AST/SGOT) 17 U/L (5-40) Alanine Aminotransferase (ALT/SGPT) 8 U/L (3-33) Alkaline Phosphatase 87 U/L (35-104) Total Protein 5.8 g/dL (6.6-8.7) L Albumin 2.5 g/dL (3.5-5.2) L Globulin 3.3 g/dL Albumin/Globulin Ratio 0.7 (1.0-2.7) L Current Medications Medications (Trade) Dose Ordered Sig/Ramiro Route PRN Reason Start Time Stop Time Status Last Admin Dose Admin Acetaminophen (Tylenol) 650 mg Q4H PRN ORAL fever>100.5 03/12/17 07:30 04/11/17 07:29 Acetaminophen (Tylenol) 650 mg Q6H PRN GT Mild Pain (Pain Scale 1-3) 03/26/17 17:45 04/25/17 17:44 Acetaminophen/ Hydrocodone Bitart (Bowman 5/325) 1 tab Q4H PRN GT Moderate Pain (Pain Scale 4-6) 03/26/17 17:45 04/02/17 17:44 03/28/17 18:27 Albuterol/ Ipratropium (DuoNeb 0.5-3(2.5)mg/3ml) 3 ml Q4H PRN HHN SHORTNESS OF BREATH 03/25/17 10:00 03/30/17 09:59 Artificial Tears (Akwa-Tears) 2 drop Q2H PRN BOTH EYES Dry Eyes 03/15/17 16:30 04/14/17 16:29 03/28/17 18:34 Clotrimazole (Lotrimin) 1 applic EVERY 12 HOURS TOPIC 03/20/17 21:00 04/19/17 20:59 03/28/17 08:16 Dextrose (Dextrose 50%) STAT PRN IV Hypoglycemia 03/12/17 10:00 04/11/17 09:59 03/26/17 11:52 Famotidine (Pepcid I.v.) 20 mg DAILY IVP 03/13/17 10:00 04/12/17 09:59 03/28/17 08:29 Heparin Sodium (Porcine) (Heparin 5000 units/ml) 5,000 units EVERY 12 HOURS SUBQ 03/12/17 09:00 04/11/17 08:59 03/27/17 08:30 Insulin Aspart (NovoLOG) Q4H SUBQ 03/12/17 12:00 04/11/17 11:59 03/28/17 15:44 Insulin Detemir (Levemir) 5 units DAILY SUBQ 03/15/17 14:00 04/14/17 13:59 03/28/17 08:14 Norepinephrine Bitartrate 4 mg/ Dextrose 254 ml @ 0 mls/hr Q24H IV 03/12/17 07:30 04/11/17 07:29 Ondansetron HCl (Zofran) 4 mg Q6H PRN IVP Nausea & Vomiting 03/12/17 07:30 04/11/17 07:29 Polyethylene Glycol (Miralax) 17 gm DAILYPRN PRN GT Constipation 03/26/17 18:00 04/11/17 07:29 HUSEYIN BERNARD M.D. Mar 28, 2017 18:55
--- NOTE | 2017-03-28 19:00 | General Progress Note ---
Assessment/Plan Assessment/Plan 1. Leukocytosis, secondary to underlying sepsis. Continue monitoring. --> Has been resolved --> WBC wnl 2. Anemia secondary to chronic disease.. --> transfuse if hgb is less than 8 or symptomatic --> monitor counts --> has been stable >8 --> occult blood negative and hiv panel negative 4. Coagulopathy, potentially secondary to underlying sepsis as well. --> PTT and prothrombin time now WNL --> continue to monitor 5. Respiratory failure, trach planned for tomorrow 6. Symptomatic bradycardia --> cardiology following, pacemaker has been placed Subjective Constitutional: Reports: no symptoms HEENT: Reports: no symptoms Cardiovascular: Reports: no symptoms Respiratory: Reports: other - trach++ Gastrointestinal/Abdominal: Reports: no symptoms Genitourinary: Reports: no symptoms Neurologic/Psychiatric: Reports: no symptoms Endocrine: Reports: no symptoms Hematologic/Lymphatic: Reports: anemia Allergies: Coded Allergies: LORAZEPAM (Unverified Allergy, Unknown, 03/02/17) METOCLOPRAMIDE (Unverified Allergy, Unknown, 03/02/17) QUETIAPINE (Unverified Allergy, Unknown, 03/02/17) ZOLPIDEM (Unverified Allergy, Unknown, 03/02/17) Subjective trach placement today, no signs of discomfort noted Objective Last 24 Hour Vital Signs Date Time Temp Pulse Resp B/P (MAP) Pulse Ox O2 Delivery O2 Flow Rate FiO2 03/28/17 18:54 64 25 30 03/28/17 18:00 63 22 152/72 100 Mechanical Ventilator 03/28/17 17:00 65 19 153/52 100 Mechanical Ventilator 03/28/17 16:51 64 25 30 03/28/17 16:00 30 03/28/17 16:00 62 03/28/17 16:00 98.8 62 18 161/50 100 Mechanical Ventilator 03/28/17 15:00 60 18 156/46 99 Mechanical Ventilator 03/28/17 14:30 55 24 30 03/28/17 14:27 60 18 100 03/28/17 14:25 60 18 115/38 100 Mechanical Ventilator 03/28/17 13:15 64 28 30 03/28/17 13:00 72 30 130/42 100 Mechanical Ventilator 30 03/28/17 12:00 60 03/28/17 12:00 98.7 67 24 156/75 100 Mechanical Ventilator 30 03/28/17 12:00 30 03/28/17 11:00 60 19 144/40 100 Mechanical Ventilator 30 03/28/17 10:42 60 18 30 03/28/17 10:00 63 18 150/87 100 Mechanical Ventilator 30 03/28/17 09:00 64 20 150/51 100 Mechanical Ventilator 30 03/28/17 08:38 60 18 30 03/28/17 08:00 30 03/28/17 08:00 98.5 60 16 146/40 100 Mechanical Ventilator 30 03/28/17 08:00 60 03/28/17 07:10 60 18 30 03/28/17 07:00 60 20 131/40 100 Mechanical Ventilator 30 03/28/17 06:00 60 20 134/41 100 Mechanical Ventilator 30 03/28/17 05:23 60 18 30 03/28/17 05:00 66 20 149/40 100 Mechanical Ventilator 30 03/28/17 04:00 66 03/28/17 04:00 30 03/28/17 04:00 66 22 170/72 100 Mechanical Ventilator 30 03/28/17 04:00 98.0 03/28/17 03:00 80 20 30 03/28/17 03:00 65 19 155/96 100 Mechanical Ventilator 30 03/28/17 02:00 67 21 163/54 100 Mechanical Ventilator 30 03/28/17 01:00 67 22 135/46 100 Mechanical Ventilator 30 03/28/17 00:50 60 18 30 03/28/17 00:00 64 03/28/17 00:00 97.5 64 18 152/51 100 Mechanical Ventilator 30 03/28/17 00:00 30 03/27/17 23:00 69 22 145/104 100 Mechanical Ventilator 30 03/27/17 22:40 63 18 30 03/27/17 22:00 61 20 106/81 100 Mechanical Ventilator 30 03/27/17 21:00 60 18 138/52 100 Mechanical Ventilator 30 03/27/17 20:53 60 18 30 03/27/17 20:00 79 03/27/17 20:00 30 03/27/17 20:00 98.7 79 28 126/50 100 Mechanical Ventilator 30 03/27/17 19:08 60 18 30 03/27/17 19:00 61 18 144/48 100 Mechanical Ventilator 30 Intake and Output 03/28/17 03/29/17 19:00 07:00 Intake Total 90 ml Output Total 415 ml Balance -325 ml Free Water 50 ml Tube Feeding 40 ml Output Urine Total 415 ml Laboratory Tests 03/28/17 04:00: Arterial Blood pH 7.490H, Arterial Blood Partial Pressure CO2 32.1L, Arterial Blood Partial Pressure O2 92.8, Arterial Blood HCO3 24.3, Arterial Blood Oxygen Saturation 96.6, Arterial Blood Base Excess 1.2, Shaun Test Positive 03/28/17 09:05: White Blood Count 7.1, Red Blood Count 2.37L, Hemoglobin 8.1L, Hematocrit 23.9L , Mean Corpuscular Volume 101H, Mean Corpuscular Hemoglobin 34.2H, Mean Corpuscular Hemoglobin Concent 33.9, Red Cell Distribution Width 14.4, Platelet Count 174, Mean Platelet Volume 10.0, Neutrophils (%) (Auto) 70.9, Lymphocytes ( %) (Auto) 12.4L, Monocytes (%) (Auto) 12.6H, Eosinophils (%) (Auto) 2.6, Basophils (%) (Auto) 1.6, Sodium Level 137, Potassium Level 3.8, Chloride Level 103, Carbon Dioxide Level 23, Anion Gap 11, Blood Urea Nitrogen 22, Creatinine 0.6, Estimat Glomerular Filtration Rate , Glucose Level 210H, Calcium Level 9.0 , Phosphorus Level 2.7, Magnesium Level 1.7, Total Bilirubin 0.4, Aspartate Amino Transf (AST/SGOT) 17, Alanine Aminotransferase (ALT/SGPT) 8, Alkaline Phosphatase 87, Total Protein 5.8L, Albumin 2.5L, Globulin 3.3, Albumin/ Globulin Ratio 0.7L Height (Feet): 5 Height (Inches): 2.00 Weight (Pounds): 140 General Appearance: no apparent distress EENT: PERRL/EOMI Neck: normal alignment Cardiovascular: no gallop/murmur Abdomen: hypoactive bowel sounds Skin: warm/dry Saul Luque Mar 28, 2017 19:00
--- NOTE | 2017-03-28 19:40 | Cardiology Progress Note ---
Assessment/Plan Assessment/Plan av block s/p PPI septic shock resolved Bibasilar staph aureus pneumonia, completed D14 IV vanc on 03/26/17 Acute respiratory failure. Acute renal failure, prerenal Diabetes type 2 Dementia. Methicillin resistant Staphylococcus aureus colonization. lactic acidosis, resolved CoNS bacteremia vs contamination (03/12), s/p >7D IV vanc. consider treated. s/p ppi yest by dr michelle tele reviewed sinus intermittent v pacing bnp in am s/p trach seems to be doign ok Subjective ROS Limited/Unobtainable: Yes Objective Last 24 Hour Vital Signs Date Time Temp Pulse Resp B/P (MAP) Pulse Ox O2 Delivery O2 Flow Rate FiO2 03/28/17 19:00 65 25 154/53 100 Mechanical Ventilator 30 03/28/17 18:54 64 25 30 03/28/17 18:00 63 22 152/72 100 Mechanical Ventilator 30 03/28/17 17:00 65 19 153/52 100 Mechanical Ventilator 30 03/28/17 16:51 64 25 30 03/28/17 16:00 30 03/28/17 16:00 62 03/28/17 16:00 98.8 62 18 161/50 100 Mechanical Ventilator 30 03/28/17 15:00 60 18 156/46 99 Mechanical Ventilator 30 03/28/17 14:30 55 24 30 03/28/17 14:27 60 18 100 03/28/17 14:25 60 18 115/38 100 Mechanical Ventilator 30 03/28/17 13:15 64 28 30 03/28/17 13:00 72 30 130/42 100 Mechanical Ventilator 30 03/28/17 12:00 60 03/28/17 12:00 98.7 67 24 156/75 100 Mechanical Ventilator 30 03/28/17 12:00 30 03/28/17 11:00 60 19 144/40 100 Mechanical Ventilator 30 03/28/17 10:42 60 18 30 03/28/17 10:00 63 18 150/87 100 Mechanical Ventilator 30 03/28/17 09:00 64 20 150/51 100 Mechanical Ventilator 30 03/28/17 08:38 60 18 30 03/28/17 08:00 30 03/28/17 08:00 98.5 60 16 146/40 100 Mechanical Ventilator 30 03/28/17 08:00 60 03/28/17 07:10 60 18 30 03/28/17 07:00 60 20 131/40 100 Mechanical Ventilator 30 03/28/17 06:00 60 20 134/41 100 Mechanical Ventilator 30 03/28/17 05:23 60 18 30 03/28/17 05:00 66 20 149/40 100 Mechanical Ventilator 30 03/28/17 04:00 66 03/28/17 04:00 30 03/28/17 04:00 66 22 170/72 100 Mechanical Ventilator 30 03/28/17 04:00 98.0 03/28/17 03:00 80 20 30 03/28/17 03:00 65 19 155/96 100 Mechanical Ventilator 30 03/28/17 02:00 67 21 163/54 100 Mechanical Ventilator 30 03/28/17 01:00 67 22 135/46 100 Mechanical Ventilator 30 03/28/17 00:50 60 18 30 03/28/17 00:00 64 03/28/17 00:00 97.5 64 18 152/51 100 Mechanical Ventilator 30 03/28/17 00:00 30 03/27/17 23:00 69 22 145/104 100 Mechanical Ventilator 30 03/27/17 22:40 63 18 30 03/27/17 22:00 61 20 106/81 100 Mechanical Ventilator 30 03/27/17 21:00 60 18 138/52 100 Mechanical Ventilator 30 03/27/17 20:53 60 18 30 03/27/17 20:00 79 03/27/17 20:00 30 03/27/17 20:00 98.7 79 28 126/50 100 Mechanical Ventilator 30 General Appearance: agitated, on vent Cardiovascular: normal rate, regular rhythm Respiratory/Chest: lungs clear Abdomen: non tender, soft Extremities: no swelling Intake and Output 03/28/17 03/29/17 19:00 07:00 Intake Total 120 ml Output Total 515 ml Balance -395 ml Free Water 50 ml Tube Feeding 70 ml Output Urine Total 515 ml Laboratory Tests Test 03/28/17 04:00 03/28/17 09:05 Arterial Blood pH 7.490 (7.350-7.450) Arterial Blood Partial Pressure CO2 32.1 mmHg (35.0-45.0) L Arterial Blood Partial Pressure O2 92.8 mmHg (75.0-100.0) Arterial Blood HCO3 24.3 mmol/L (22.0-26.0) Arterial Blood Oxygen Saturation 96.6 % (92.0-98.0) Arterial Blood Base Excess 1.2 Shaun Test Positive White Blood Count 7.1 K/UL (4.8-10.8) Red Blood Count 2.37 M/UL (4.20-5.40) L Hemoglobin 8.1 G/DL (12.0-16.0) L Hematocrit 23.9 % (37.0-47.0) L Mean Corpuscular Volume 101 FL (80-99) H Mean Corpuscular Hemoglobin 34.2 PG (27.0-31.0) H Mean Corpuscular Hemoglobin Concent 33.9 G/DL (32.0-36.0) Red Cell Distribution Width 14.4 % (11.6-14.8) Platelet Count 174 K/UL (150-450) Mean Platelet Volume 10.0 FL (6.5-10.1) Neutrophils (%) (Auto) 70.9 % (45.0-75.0) Lymphocytes (%) (Auto) 12.4 % (20.0-45.0) L Monocytes (%) (Auto) 12.6 % (1.0-10.0) H Eosinophils (%) (Auto) 2.6 % (0.0-3.0) Basophils (%) (Auto) 1.6 % (0.0-2.0) Sodium Level 137 mEQ/L (135-145) Potassium Level 3.8 mEQ/L (3.4-4.9) Chloride Level 103 mEQ/L (98-107) Carbon Dioxide Level 23 mEQ/L (20-30) Anion Gap 11 (5-15) Blood Urea Nitrogen 22 mg/dL (7-23) Creatinine 0.6 mg/dL (0.5-0.9) Estimat Glomerular Filtration Rate mL/min (>60) Glucose Level 210 mg/dL (74-106) H Calcium Level 9.0 mg/dL (8.6-10.2) Phosphorus Level 2.7 mg/dL (2.5-4.8) Magnesium Level 1.7 mg/dL (1.7-2.5) Total Bilirubin 0.4 mg/dL (0.0-1.2) Aspartate Amino Transf (AST/SGOT) 17 U/L (5-40) Alanine Aminotransferase (ALT/SGPT) 8 U/L (3-33) Alkaline Phosphatase 87 U/L (35-104) Total Protein 5.8 g/dL (6.6-8.7) L Albumin 2.5 g/dL (3.5-5.2) L Globulin 3.3 g/dL Albumin/Globulin Ratio 0.7 (1.0-2.7) L SYLVIA HARRIS Mar 28, 2017 19:40
--- NOTE | 2017-03-28 23:12 | General Progress Note ---
Assessment/Plan Assessment/Plan 1. Leukocytosis, secondary to underlying sepsis. Continue monitoring. --> Has been resolved --> WBC wnl 2. Anemia secondary to chronic disease.. --> transfuse if hgb is less than 8 or symptomatic --> monitor counts --> has been stable >8 --> occult blood negative and hiv panel negative 4. Coagulopathy, potentially secondary to underlying sepsis as well. --> PTT and prothrombin time now WNL --> continue to monitor 5. Respiratory failure --> trach 6. Symptomatic bradycardia --> cardiology following, pacemaker has been placed Subjective Constitutional: Reports: no symptoms HEENT: Reports: no symptoms Cardiovascular: Reports: no symptoms Respiratory: Reports: no symptoms Gastrointestinal/Abdominal: Reports: no symptoms Genitourinary: Reports: no symptoms Neurologic/Psychiatric: Reports: no symptoms Endocrine: Reports: no symptoms Hematologic/Lymphatic: Reports: anemia Allergies: Coded Allergies: LORAZEPAM (Unverified Allergy, Unknown, 03/02/17) METOCLOPRAMIDE (Unverified Allergy, Unknown, 03/02/17) QUETIAPINE (Unverified Allergy, Unknown, 03/02/17) ZOLPIDEM (Unverified Allergy, Unknown, 03/02/17) Subjective no major changes Objective Last 24 Hour Vital Signs Date Time Temp Pulse Resp B/P (MAP) Pulse Ox O2 Delivery O2 Flow Rate FiO2 03/28/17 23:00 60 17 30 03/28/17 21:16 60 18 30 03/28/17 19:00 65 25 154/53 100 Mechanical Ventilator 03/28/17 18:54 64 25 30 03/28/17 18:00 63 22 152/72 100 Mechanical Ventilator 03/28/17 17:00 65 19 153/52 100 Mechanical Ventilator 03/28/17 16:51 64 25 30 03/28/17 16:00 30 03/28/17 16:00 62 03/28/17 16:00 98.8 62 18 161/50 100 Mechanical Ventilator 03/28/17 15:00 60 18 156/46 99 Mechanical Ventilator 03/28/17 14:30 55 24 30 03/28/17 14:27 60 18 100 03/28/17 14:25 60 18 115/38 100 Mechanical Ventilator 03/28/17 13:15 64 28 30 03/28/17 13:00 72 30 130/42 100 Mechanical Ventilator 30 03/28/17 12:00 60 03/28/17 12:00 98.7 67 24 156/75 100 Mechanical Ventilator 30 03/28/17 12:00 30 03/28/17 11:00 60 19 144/40 100 Mechanical Ventilator 30 03/28/17 10:42 60 18 30 03/28/17 10:00 63 18 150/87 100 Mechanical Ventilator 30 03/28/17 09:00 64 20 150/51 100 Mechanical Ventilator 30 03/28/17 08:38 60 18 30 03/28/17 08:00 30 03/28/17 08:00 98.5 60 16 146/40 100 Mechanical Ventilator 30 03/28/17 08:00 60 03/28/17 07:10 60 18 30 03/28/17 07:00 60 20 131/40 100 Mechanical Ventilator 30 03/28/17 06:00 60 20 134/41 100 Mechanical Ventilator 30 03/28/17 05:23 60 18 30 03/28/17 05:00 66 20 149/40 100 Mechanical Ventilator 30 03/28/17 04:00 66 03/28/17 04:00 30 03/28/17 04:00 66 22 170/72 100 Mechanical Ventilator 30 03/28/17 04:00 98.0 03/28/17 03:00 80 20 30 03/28/17 03:00 65 19 155/96 100 Mechanical Ventilator 30 03/28/17 02:00 67 21 163/54 100 Mechanical Ventilator 30 03/28/17 01:00 67 22 135/46 100 Mechanical Ventilator 03/28/17 00:50 60 18 30 03/28/17 00:00 64 03/28/17 00:00 97.5 64 18 152/51 100 Mechanical Ventilator 30 03/28/17 00:00 30 Intake and Output 03/28/17 03/29/17 19:00 07:00 Intake Total 120 ml Output Total 515 ml Balance -395 ml Free Water 50 ml Tube Feeding 70 ml Output Urine Total 515 ml Laboratory Tests 03/28/17 04:00: Arterial Blood pH 7.490H, Arterial Blood Partial Pressure CO2 32.1L, Arterial Blood Partial Pressure O2 92.8, Arterial Blood HCO3 24.3, Arterial Blood Oxygen Saturation 96.6, Arterial Blood Base Excess 1.2, Shaun Test Positive 03/28/17 09:05: White Blood Count 7.1, Red Blood Count 2.37L, Hemoglobin 8.1L, Hematocrit 23.9L , Mean Corpuscular Volume 101H, Mean Corpuscular Hemoglobin 34.2H, Mean Corpuscular Hemoglobin Concent 33.9, Red Cell Distribution Width 14.4, Platelet Count 174, Mean Platelet Volume 10.0, Neutrophils (%) (Auto) 70.9, Lymphocytes ( %) (Auto) 12.4L, Monocytes (%) (Auto) 12.6H, Eosinophils (%) (Auto) 2.6, Basophils (%) (Auto) 1.6, Sodium Level 137, Potassium Level 3.8, Chloride Level 103, Carbon Dioxide Level 23, Anion Gap 11, Blood Urea Nitrogen 22, Creatinine 0.6, Estimat Glomerular Filtration Rate , Glucose Level 210H, Calcium Level 9.0 , Phosphorus Level 2.7, Magnesium Level 1.7, Total Bilirubin 0.4, Aspartate Amino Transf (AST/SGOT) 17, Alanine Aminotransferase (ALT/SGPT) 8, Alkaline Phosphatase 87, Total Protein 5.8L, Albumin 2.5L, Globulin 3.3, Albumin/ Globulin Ratio 0.7L Height (Feet): 5 Height (Inches): 2.00 Weight (Pounds): 140 General Appearance: no apparent distress EENT: normal ENT inspection Cardiovascular: normal peripheral pulses Edema: mild edema Skin: warm/dry Saul Luque Mar 28, 2017 23:12
[2017-03-29] VITALS (19 sets, daily range): BP systolic 110–156; BP diastolic 40–89
[2017-03-29] MEDS: NovoLOG Insulin Flexpen SUBQ SCH ×5 (04:11→23:34)
[2017-03-29 05:00] LABS: BASOPHILS % (AUTO) 1.9 % (0.0-2.0); LYMPHOCYTES % (AUTO) 10.5 % (20.0-45.0); MEAN CORPUSCULAR HEMOGLOBIN 34.5 PG (27.0-31.0); MEAN CORPUSCULAR HGB CONC 33.5 G/DL (32.0-36.0); MEAN CORPUSCULAR VOLUME 103 FL (80-99); MEAN PLATELET VOLUME 10.4 FL (6.5-10.1); MONOCYTES % (AUTO) 10.2 % (1.0-10.0); NEUTROPHILS % (AUTO) 74.5 % (45.0-75.0); PLATELET COUNT 153 K/UL (150-450); RED BLOOD COUNT 2.37 M/UL (4.20-5.40); RED CELL DISTRIBUTION WIDTH 14.3 % (11.6-14.8); WHITE BLOOD COUNT 7.9 K/UL (4.8-10.8)
[2017-03-29 05:25] LABS: ALANINE AMINOTRANSFERASE 7 U/L (3-33); ALBUMIN/GLOBULIN RATIO 0.6 (1.0-2.7); ANION GAP 10 (5-15); ASPARTATE AMINO TRANSFERASE 18 U/L (5-40); CALCIUM 8.8 mg/dL (8.6-10.2); CARBON DIOXIDE 23 mEQ/L (20-30); CHLORIDE 105 mEQ/L (98-107); CREATININE 0.6 mg/dL (0.5-0.9); HEMOLYSIS 10; MAGNESIUM 1.9 mg/dL (1.7-2.5); PHOSPHORUS 3.2 mg/dL (2.5-4.8); POTASSIUM 3.9 mEQ/L (3.4-4.9); SODIUM 138 mEQ/L (135-145); TOTAL PROTEIN 5.6 g/dL (6.6-8.7)
[2017-03-29] MEDS: Heparin 5000 units/ml inj SUBQ SCH ×2 (08:50→20:04)
[2017-03-29] MEDS: Levemir Flexpen SUBQ SCH (08:50)
[2017-03-29] MEDS: Famotidine 20 MG/ 2ML VIAL IVP SCH (08:52)
[2017-03-29 09:37] LABS: ABG ALLEN TEST POSITIVE; ABG BASE EXCESS -0.5
--- NOTE | 2017-03-29 10:00 | General Progress Note ---
Progress Note Progress Note Surgery: patient seen and examined at bedside. much more alert today. doing well since trach. no acute events. trach in place and functional. dressings removed. wound clean and dry. -continue trach care -dressings Ranjan German Mar 29, 2017 10:00
--- NOTE | 2017-03-29 10:25 | Pulmonolgy Critical Care Note ---
Critical Care - Asmt/Plan Problems: (1) Respiratory failure requiring intubation (2) Pneumonia (3) Anemia (4) Advanced dementia (5) Feeding by G-tube (6) Severe sepsis Respiratory: monitor respiratory rate, adjust FIO2, CXR Cardiac: continue to monitor HR/BP Renal: F/U I&O, keep IV fluid Infectious Disease: check cultures Gastrointestinal: continue feedings/current rate Endocrine: monitor blood sugar, check HgA1C Hematologic: monitor H/H Neurologic: PRN Morphine, keep patient comfortable Prophylaxis: Heparin Notes Reviewed: renal Discussed with: nurses, consultants Critical Care - Objective Last 24 Hour Vital Signs Date Time Temp Pulse Resp B/P (MAP) Pulse Ox O2 Delivery O2 Flow Rate FiO2 03/29/17 10:00 69 18 143/82 100 Mechanical Ventilator 30 03/29/17 09:00 64 18 143/45 100 Mechanical Ventilator 30 03/29/17 08:52 62 18 30 03/29/17 08:00 70 03/29/17 08:00 98.1 68 20 134/89 100 Mechanical Ventilator 30 03/29/17 08:00 30 03/29/17 07:15 60 18 30 03/29/17 07:00 63 20 131/68 100 Mechanical Ventilator 30 03/29/17 06:00 61 23 129/65 100 Mechanical Ventilator 30 03/29/17 05:05 66 20 30 03/29/17 05:00 69 20 132/65 100 Mechanical Ventilator 30 03/29/17 04:00 97.9 64 21 136/69 100 Mechanical Ventilator 30 03/29/17 04:00 64 03/29/17 04:00 30 03/29/17 03:16 63 18 30 03/29/17 03:00 62 22 128/69 100 Mechanical Ventilator 30 03/29/17 02:00 65 28 133/59 100 Mechanical Ventilator 30 03/29/17 01:17 64 18 30 03/29/17 01:00 61 24 133/68 100 Mechanical Ventilator 30 03/29/17 00:00 60 03/29/17 00:00 98.1 60 25 142/76 100 Mechanical Ventilator 30 03/29/17 00:00 30 03/28/17 23:00 65 20 129/65 100 Mechanical Ventilator 30 03/28/17 23:00 60 17 30 03/28/17 22:00 62 18 134/48 100 Mechanical Ventilator 30 03/28/17 21:16 60 18 30 03/28/17 21:00 60 23 123/49 100 Mechanical Ventilator 30 03/28/17 20:00 98.4 60 25 131/58 100 Mechanical Ventilator 30 03/28/17 20:00 30 03/28/17 20:00 60 03/28/17 19:00 65 25 154/53 100 Mechanical Ventilator 30 03/28/17 18:54 64 25 30 03/28/17 18:00 63 22 152/72 100 Mechanical Ventilator 30 03/28/17 17:00 65 19 153/52 100 Mechanical Ventilator 30 03/28/17 16:51 64 25 30 03/28/17 16:00 30 03/28/17 16:00 62 03/28/17 16:00 98.8 62 18 161/50 100 Mechanical Ventilator 30 03/28/17 15:00 60 18 156/46 99 Mechanical Ventilator 30 03/28/17 14:30 55 24 30 03/28/17 14:27 60 18 100 03/28/17 14:25 60 18 115/38 100 Mechanical Ventilator 30 03/28/17 13:15 64 28 30 03/28/17 13:00 72 30 130/42 100 Mechanical Ventilator 30 03/28/17 12:00 60 03/28/17 12:00 98.7 67 24 156/75 100 Mechanical Ventilator 30 03/28/17 12:00 30 03/28/17 11:00 60 19 144/40 100 Mechanical Ventilator 30 03/28/17 10:42 60 18 30 Status: awake Condition: critical HEENT: atraumatic Neck: full ROM Heart: HR/BP stable Abdomen: soft, active bowel sounds, feeding tube Extremities: edema Decubiti: location, stage Accucheck: 302 Critical Care - Subjective ROS Limited/Unobtainable: Yes Condition: critical EKG Rhythm: Sinus Rhythm FI02: 30 Vent Support Breath Rate: 18 Vent Support Mode: AC Vent Tidal Volume: 500 Sputum Amount: Moderate PEEP: 5.0 PIP: 24 Tube Feeding Amount: 45 I&O: Intake and Output 03/29/17 03/30/17 19:00 07:00 Intake Total 135 ml Output Total 150 ml Balance -15 ml Tube Feeding 135 ml Output Urine Total 150 ml CXR: unchanged infiltrate ET-Tube: 7.0 ET Position: 21 Labs: Laboratory Tests Test 03/29/17 03:50 9/8/17 09:27 White Blood Count 7.9 K/UL (4.8-10.8) Red Blood Count 2.37 M/UL (4.20-5.40) L Hemoglobin 8.1 G/DL (12.0-16.0) L Hematocrit 24.4 % (37.0-47.0) L Mean Corpuscular Volume 103 FL (80-99) H Mean Corpuscular Hemoglobin 34.5 PG (27.0-31.0) H Mean Corpuscular Hemoglobin Concent 33.5 G/DL (32.0-36.0) Red Cell Distribution Width 14.3 % (11.6-14.8) Platelet Count 153 K/UL (150-450) Mean Platelet Volume 10.4 FL (6.5-10.1) H Neutrophils (%) (Auto) 74.5 % (45.0-75.0) Lymphocytes (%) (Auto) 10.5 % (20.0-45.0) L Monocytes (%) (Auto) 10.2 % (1.0-10.0) H Eosinophils (%) (Auto) 3.0 % (0.0-3.0) Basophils (%) (Auto) 1.9 % (0.0-2.0) Sodium Level 138 mEQ/L (135-145) Potassium Level 3.9 mEQ/L (3.4-4.9) Chloride Level 105 mEQ/L (98-107) Carbon Dioxide Level 23 mEQ/L (20-30) Anion Gap 10 (5-15) Blood Urea Nitrogen 20 mg/dL (7-23) Creatinine 0.6 mg/dL (0.5-0.9) Estimat Glomerular Filtration Rate mL/min (>60) Glucose Level 154 mg/dL (74-106) H Calcium Level 8.8 mg/dL (8.6-10.2) Phosphorus Level 3.2 mg/dL (2.5-4.8) Magnesium Level 1.9 mg/dL (1.7-2.5) Total Bilirubin 0.4 mg/dL (0.0-1.2) Aspartate Amino Transf (AST/SGOT) 18 U/L (5-40) Alanine Aminotransferase (ALT/SGPT) 7 U/L (3-33) Alkaline Phosphatase 96 U/L (35-104) Pro-B-Type Natriuretic Peptide 2950 pg/mL (0-450) H Total Protein 5.6 g/dL (6.6-8.7) L Albumin 2.3 g/dL (3.5-5.2) L Globulin 3.3 g/dL Albumin/Globulin Ratio 0.6 (1.0-2.7) L Arterial Blood pH 7.417 (7.350-7.450) Arterial Blood Partial Pressure CO2 38.0 mmHg (35.0-45.0) Arterial Blood Partial Pressure O2 88.1 mmHg (75.0-100.0) Arterial Blood HCO3 23.9 mmol/L (22.0-26.0) Arterial Blood Oxygen Saturation 95.3 % (92.0-98.0) Arterial Blood Base Excess -0.5 Shaun Test Positive ZAIRA ROSALES Mar 29, 2017 10:25
--- NOTE | 2017-03-29 10:41 | Diagnostic Imaging Report ---
Indication: Status post tracheostomy. Dyspnea. Comparison: 03/28/17 A single view chest radiograph was obtained. Findings: Tracheostomy noted in good position. No pneumothorax or other complications identified. Patchy interstitial and alveolar opacities present within the lungs bilaterally unchanged. Heart size is stable. Impression: Tracheostomy. No change otherwise
--- NOTE | 2017-03-29 10:43 | General Progress Note ---
Assessment/Plan Status: stable - from renal stand Assessment/Plan Respiratory failure requiring intubation Severe sepsis secondary to pneumonia, resolving UTI Acute cystitis without hematuria Pneumonia, non cavitary, w/o effusion Dementia Acute renal failure , Dehydration Hypoxemic respiratory failure Type 2 diabetes mellitus with hyperglycemia Proteinuria Plan: Trached on 03/28 Pulm support- Monitor renal parameters Urine studies- Avoid Nephrotoxics- Per Orders Subjective ROS Limited/Unobtainable: Yes Allergies: Coded Allergies: LORAZEPAM (Unverified Allergy, Unknown, 03/02/17) METOCLOPRAMIDE (Unverified Allergy, Unknown, 03/02/17) QUETIAPINE (Unverified Allergy, Unknown, 03/02/17) ZOLPIDEM (Unverified Allergy, Unknown, 03/02/17) Objective Last 24 Hour Vital Signs Date Time Temp Pulse Resp B/P (MAP) Pulse Ox O2 Delivery O2 Flow Rate FiO2 03/29/17 10:00 69 18 143/82 100 Mechanical Ventilator 30 03/29/17 09:00 64 18 143/45 100 Mechanical Ventilator 30 03/29/17 08:52 62 18 30 03/29/17 08:00 70 03/29/17 08:00 98.1 68 20 134/89 100 Mechanical Ventilator 30 03/29/17 08:00 30 03/29/17 07:15 60 18 30 03/29/17 07:00 63 20 131/68 100 Mechanical Ventilator 03/29/17 06:00 61 23 129/65 100 Mechanical Ventilator 03/29/17 05:05 66 20 30 03/29/17 05:00 69 20 132/65 100 Mechanical Ventilator 03/29/17 04:00 97.9 64 21 136/69 100 Mechanical Ventilator 30 03/29/17 04:00 64 03/29/17 04:00 30 03/29/17 03:16 63 18 30 03/29/17 03:00 62 22 128/69 100 Mechanical Ventilator 30 03/29/17 02:00 65 28 133/59 100 Mechanical Ventilator 30 03/29/17 01:17 64 18 30 03/29/17 01:00 61 24 133/68 100 Mechanical Ventilator 30 03/29/17 00:00 60 03/29/17 00:00 98.1 60 25 142/76 100 Mechanical Ventilator 30 03/29/17 00:00 30 03/28/17 23:00 65 20 129/65 100 Mechanical Ventilator 30 03/28/17 23:00 60 17 30 03/28/17 22:00 62 18 134/48 100 Mechanical Ventilator 30 03/28/17 21:16 60 18 30 03/28/17 21:00 60 23 123/49 100 Mechanical Ventilator 30 03/28/17 20:00 98.4 60 25 131/58 100 Mechanical Ventilator 03/28/17 20:00 30 03/28/17 20:00 60 03/28/17 19:00 65 25 154/53 100 Mechanical Ventilator 30 03/28/17 18:54 64 25 30 03/28/17 18:00 63 22 152/72 100 Mechanical Ventilator 30 03/28/17 17:00 65 19 153/52 100 Mechanical Ventilator 30 03/28/17 16:51 64 25 30 03/28/17 16:00 30 03/28/17 16:00 62 03/28/17 16:00 98.8 62 18 161/50 100 Mechanical Ventilator 30 03/28/17 15:00 60 18 156/46 99 Mechanical Ventilator 03/28/17 14:30 55 24 30 03/28/17 14:27 60 18 100 03/28/17 14:25 60 18 115/38 100 Mechanical Ventilator 03/28/17 13:15 64 28 30 03/28/17 13:00 72 30 130/42 100 Mechanical Ventilator 30 03/28/17 12:00 60 03/28/17 12:00 98.7 67 24 156/75 100 Mechanical Ventilator 03/28/17 12:00 30 03/28/17 11:00 60 19 144/40 100 Mechanical Ventilator 30 03/28/17 10:42 60 18 30 Intake and Output 03/29/17 03/30/17 19:00 07:00 Intake Total 135 ml Output Total 150 ml Balance -15 ml Tube Feeding 135 ml Output Urine Total 150 ml Laboratory Tests 03/29/17 03:50: White Blood Count 7.9, Red Blood Count 2.37L, Hemoglobin 8.1L, Hematocrit 24.4L , Mean Corpuscular Volume 103H, Mean Corpuscular Hemoglobin 34.5H, Mean Corpuscular Hemoglobin Concent 33.5, Red Cell Distribution Width 14.3, Platelet Count 153, Mean Platelet Volume 10.4H, Neutrophils (%) (Auto) 74.5, Lymphocytes (%) (Auto) 10.5L, Monocytes (%) (Auto) 10.2H, Eosinophils (%) (Auto) 3.0, Basophils (%) (Auto) 1.9, Sodium Level 138, Potassium Level 3.9, Chloride Level 105, Carbon Dioxide Level 23, Anion Gap 10, Blood Urea Nitrogen 20, Creatinine 0.6, Estimat Glomerular Filtration Rate , Glucose Level 154H, Calcium Level 8.8 , Phosphorus Level 3.2, Magnesium Level 1.9, Total Bilirubin 0.4, Aspartate Amino Transf (AST/SGOT) 18, Alanine Aminotransferase (ALT/SGPT) 7, Alkaline Phosphatase 96, Pro-B-Type Natriuretic Peptide 2950H, Total Protein 5.6L, Albumin 2.3L, Globulin 3.3, Albumin/Globulin Ratio 0.6L 03/29/17 09:27: Arterial Blood pH 7.417, Arterial Blood Partial Pressure CO2 38.0, Arterial Blood Partial Pressure O2 88.1, Arterial Blood HCO3 23.9, Arterial Blood Oxygen Saturation 95.3, Arterial Blood Base Excess -0.5, Shaun Test Positive Height (Feet): 5 Height (Inches): 2.00 Weight (Pounds): 149 General Appearance: no apparent distress Cardiovascular: normal rate Respiratory/Chest: decreased breath sounds Abdomen: soft Objective PE not changed IRWIN DAMON Mar 29, 2017 10:43
--- NOTE | 2017-03-29 11:21 | 48 Hour Post Anesthesia Eval ---
Post Anesthesia Evaluation Procedure: TRACHESTOMY Date of Evaluation: Mar 29, 2017 Time of Evaluation: 11:20 Blood Pressure Systolic: 138 0: 56 Pulse Rate: 75 Respiratory Rate: 16 Temperature (Fahrenheit): 97.6 O2 Sat by Pulse Oximetry: 98 Airway: patent Nausea: No Vomiting: No Pain Intensity: 2 Hydration Status: adequate Cardiopulmonary Status: stable Mental Status/LOC: patient returned to baseline Follow-up Care/Observations: n/a Post-Anesthesia Complications: none Follow-up care needed: N/A YEIMY RUIZ M.D. Mar 29, 2017 11:21
--- NOTE | 2017-03-29 12:29 | General Progress Note ---
Assessment/Plan Assessment/Plan 1. Leukocytosis, secondary to underlying sepsis. Continue monitoring. --> Has been resolved --> WBC wnl and remains stable 2. Anemia secondary to chronic disease. --> transfuse if hgb is less than 8 or symptomatic --> monitor counts --> has been stable >8 --> occult blood negative and hiv panel negative 4. Coagulopathy, potentially secondary to underlying sepsis as well. --> PTT and prothrombin time now WNL --> continue to monitor 5. Respiratory failure --> trach on 03/28 6. Symptomatic bradycardia --> cardiology following, pacemaker has been placed Subjective Constitutional: Reports: no symptoms HEENT: Reports: no symptoms Cardiovascular: Reports: no symptoms Respiratory: Reports: no symptoms Gastrointestinal/Abdominal: Reports: no symptoms Genitourinary: Reports: no symptoms Neurologic/Psychiatric: Reports: no symptoms Endocrine: Reports: no symptoms Hematologic/Lymphatic: Reports: no symptoms Allergies: Coded Allergies: LORAZEPAM (Unverified Allergy, Unknown, 03/02/17) METOCLOPRAMIDE (Unverified Allergy, Unknown, 03/02/17) QUETIAPINE (Unverified Allergy, Unknown, 03/02/17) ZOLPIDEM (Unverified Allergy, Unknown, 03/02/17) Subjective alert, counts stable Objective Last 24 Hour Vital Signs Date Time Temp Pulse Resp B/P (MAP) Pulse Ox O2 Delivery O2 Flow Rate FiO2 03/29/17 12:00 74 03/29/17 12:00 30 03/29/17 12:00 98.7 74 20 142/40 100 Mechanical Ventilator 03/29/17 11:21 75 16 98 03/29/17 11:00 62 20 156/70 100 Mechanical Ventilator 03/29/17 10:45 60 18 30 03/29/17 10:00 69 18 143/82 100 Mechanical Ventilator 03/29/17 09:00 64 18 143/45 100 Mechanical Ventilator 03/29/17 08:52 62 18 30 03/29/17 08:00 70 03/29/17 08:00 98.1 68 20 134/89 100 Mechanical Ventilator 30 03/29/17 08:00 30 03/29/17 07:15 60 18 30 03/29/17 07:00 63 20 131/68 100 Mechanical Ventilator 30 03/29/17 06:00 61 23 129/65 100 Mechanical Ventilator 30 03/29/17 05:05 66 20 30 03/29/17 05:00 69 20 132/65 100 Mechanical Ventilator 30 03/29/17 04:00 97.9 64 21 136/69 100 Mechanical Ventilator 30 03/29/17 04:00 64 03/29/17 04:00 30 03/29/17 03:16 63 18 30 03/29/17 03:00 62 22 128/69 100 Mechanical Ventilator 30 03/29/17 02:00 65 28 133/59 100 Mechanical Ventilator 30 03/29/17 01:17 64 18 30 03/29/17 01:00 61 24 133/68 100 Mechanical Ventilator 30 03/29/17 00:00 60 03/29/17 00:00 98.1 60 25 142/76 100 Mechanical Ventilator 30 03/29/17 00:00 30 03/28/17 23:00 65 20 129/65 100 Mechanical Ventilator 30 03/28/17 23:00 60 17 30 03/28/17 22:00 62 18 134/48 100 Mechanical Ventilator 30 03/28/17 21:16 60 18 30 03/28/17 21:00 60 23 123/49 100 Mechanical Ventilator 30 03/28/17 20:00 98.4 60 25 131/58 100 Mechanical Ventilator 30 03/28/17 20:00 30 03/28/17 20:00 60 03/28/17 19:00 65 25 154/53 100 Mechanical Ventilator 30 03/28/17 18:54 64 25 30 03/28/17 18:00 63 22 152/72 100 Mechanical Ventilator 30 03/28/17 17:00 65 19 153/52 100 Mechanical Ventilator 30 03/28/17 16:51 64 25 30 03/28/17 16:00 30 03/28/17 16:00 62 03/28/17 16:00 98.8 62 18 161/50 100 Mechanical Ventilator 30 03/28/17 15:00 60 18 156/46 99 Mechanical Ventilator 30 03/28/17 14:30 55 24 30 03/28/17 14:27 60 18 100 03/28/17 14:25 60 18 115/38 100 Mechanical Ventilator 30 03/28/17 13:15 64 28 30 03/28/17 13:00 72 30 130/42 100 Mechanical Ventilator 30 Intake and Output 03/29/17 03/30/17 19:00 07:00 Intake Total 225 ml Output Total 300 ml Balance -75 ml Tube Feeding 225 ml Output Urine Total 300 ml Laboratory Tests 03/29/17 03:50: White Blood Count 7.9, Red Blood Count 2.37L, Hemoglobin 8.1L, Hematocrit 24.4L , Mean Corpuscular Volume 103H, Mean Corpuscular Hemoglobin 34.5H, Mean Corpuscular Hemoglobin Concent 33.5, Red Cell Distribution Width 14.3, Platelet Count 153, Mean Platelet Volume 10.4H, Neutrophils (%) (Auto) 74.5, Lymphocytes (%) (Auto) 10.5L, Monocytes (%) (Auto) 10.2H, Eosinophils (%) (Auto) 3.0, Basophils (%) (Auto) 1.9, Sodium Level 138, Potassium Level 3.9, Chloride Level 105, Carbon Dioxide Level 23, Anion Gap 10, Blood Urea Nitrogen 20, Creatinine 0.6, Estimat Glomerular Filtration Rate , Glucose Level 154H, Calcium Level 8.8 , Phosphorus Level 3.2, Magnesium Level 1.9, Total Bilirubin 0.4, Aspartate Amino Transf (AST/SGOT) 18, Alanine Aminotransferase (ALT/SGPT) 7, Alkaline Phosphatase 96, Pro-B-Type Natriuretic Peptide 2950H, Total Protein 5.6L, Albumin 2.3L, Globulin 3.3, Albumin/Globulin Ratio 0.6L 03/29/17 09:27: Arterial Blood pH 7.417, Arterial Blood Partial Pressure CO2 38.0, Arterial Blood Partial Pressure O2 88.1, Arterial Blood HCO3 23.9, Arterial Blood Oxygen Saturation 95.3, Arterial Blood Base Excess -0.5, Shaun Test Positive Height (Feet): 5 Height (Inches): 2.00 Weight (Pounds): 149 General Appearance: no apparent distress EENT: normal ENT inspection Neck: normal alignment Cardiovascular: normal rate Respiratory/Chest: other - trach++ Abdomen: normal bowel sounds, soft, other - tube++ Extremities: normal inspection Edema: 1+ Pedal (L), 1+ Pedal (R) Neurologic: weight inspector II-XII grossly normal Skin: warm/dry Saul Luque Mar 29, 2017 12:29
[2017-03-29] MEDS ORDERED: Artificial Tears 1.4% Op Soln BOTH EYES PRN (16:30)
[2017-03-29] MEDS ORDERED: Acetaminophen 650mg/20.3ml GT PRN (17:45)
[2017-03-29] MEDS ORDERED: Norco 5mg/325mg tab GT PRN (17:45)
[2017-03-29] MEDS ORDERED: NS 275ml ONE (17:51)
[2017-03-29] MEDS ORDERED: Miralax 17gm pkt GT PRN (18:00)
[2017-03-29] MEDS ORDERED: DuoNeb 0.5-3(2.5)mg/3ml neb HHN PRN (18:00)
--- NOTE | 2017-03-30 00:45 | Operative Note - Dictated ---
DATE OF OPERATION: 03/28/2017 PREOPERATIVE DIAGNOSIS: Respiratory failure requiring prolonged mechanical ventilator support. POSTOPERATIVE DIAGNOSIS: Respiratory failure requiring prolonged mechanical ventilator support. OPERATION PERFORMED: Tracheostomy. ATTENDING SURGEON: Ranjan Troy M.D. SHAPER SET UP OPERATOR: None. ANESTHESIOLOGIST: Dr. Padilla. ANESTHESIA: General POKER SUPERVISOR. COMPLICATIONS: None. ESTIMATED BLOOD LOSS: Minimal. IV FLUIDS: Please see anesthesia records. ANTIBIOTICS: 2 g Ancef IV given 1 hour prior to cut time. SPECIMENS: None. DRAINS: None. IMPLANTS: An 8-Ecu[place] Shiley tracheostomy. WOUND CLASSIFICATION: Class 1. COUNTS: Sponge and needle count correct x2. INDICATIONS FOR PROCEDURE: This is an 81-year-old female with multiple medical comorbidities including respiratory failure requiring prolonged mechanical ventilator support. The patient has been intubated for approximately 2 weeks and will need a mechanical ventilation for a significant amount of time. The risks, benefits, and alternatives to tracheostomy were discussed with the patient's family and durable power of senior trial attorney. Surgery was indicated. Consent was obtained and in chart. OPERATIVE NOTE: The patient was taken to the operating room and made comfortable in the hospital bed. All bony prominences were well padded. SCDs were activated. Appropriate time-out was taken in identifying the patient, procedure, operative staff, and surgical staff. Prior to entering the operating room, the patient already had an ET tube in place as well as a Patel catheter in place. Preoperative antibiotics were given 1 hour prior to cut time. A shoulder roll was placed. The neck was then positioned, and prepped and draped in a standard surgical fashion. We began by making an incision 2 fingerbreadths above the sternal notch. Incision was made with a fresh 15 blade and carried down through the platysma and subcutaneous fat and tissues using electrocautery. Hemostasis from larger anterior jugular was obtained with 3-0 silk ties. Once the trachea was identified, it was exposed to the first and second tracheal rings. At this time, a tracheal hook was inserted and the trachea was stabilized. The second tracheal ring was identified and a Lianne flap was created in the second tracheal ring. With cooperation with the anesthesiologist, the endotracheal tube was slowly withdrawn. Once the tube was above the second tracheal ring, the 8-Ecuadorean Shiley tracheostomy was inserted under direct visualization without complication. The balloon of the tracheostomy was insufflated and the patient was connected to tracheostomy without complication. Good tidal volumes were identified without a leak. At this time, the Lianne flap was attached to the subcutaneous tissue using a 2-0 Prolene suture. Following this, the skin incision was closed using a 3-0 nylon suture followed by anchoring the tracheostomy to the skin using 3-0 nylon sutures as well. Dressings were applied. The patient tolerated the procedure well and was taken to the intensive care unit directly in stable condition. Ranjan Troy M.D. DR: MIRIAN JOB#: [id number] CC:
[2017-03-30 04:00] VITALS: BP 135/72
[2017-03-30] MEDS: NovoLOG Insulin Flexpen SUBQ SCH ×4 (04:19→17:32)
[2017-03-30 05:49] LABS: BASOPHILS % (AUTO) 1.2 % (0.0-2.0); EOSINOPHILS % (AUTO) 3.8 % (0.0-3.0); LYMPHOCYTES % (AUTO) 15.6 % (20.0-45.0); MEAN CORPUSCULAR HEMOGLOBIN 36.3 PG (27.0-31.0); MEAN CORPUSCULAR HGB CONC 35.4 G/DL (32.0-36.0); MEAN CORPUSCULAR VOLUME 103 FL (80-99); MEAN PLATELET VOLUME 9.9 FL (6.5-10.1); NEUTROPHILS % (AUTO) 69.3 % (45.0-75.0); PLATELET COUNT 153 K/UL (150-450); RED CELL DISTRIBUTION WIDTH 14.4 % (11.6-14.8)
[2017-03-30 06:07] LABS: ALANINE AMINOTRANSFERASE 8 U/L (3-33); ALBUMIN/GLOBULIN RATIO 0.8 (1.0-2.7); ANION GAP 12 (5-15); ASPARTATE AMINO TRANSFERASE 18 U/L (5-40); CARBON DIOXIDE 24 mEQ/L (20-30); CHLORIDE 105 mEQ/L (98-107); CREATININE 0.7 mg/dL (0.5-0.9); HEMOLYSIS 0; POTASSIUM 4.1 mEQ/L (3.4-4.9); SODIUM 141 mEQ/L (135-145); TOTAL PROTEIN 5.8 g/dL (6.6-8.7)
[2017-03-30 07:51] VITALS: BP 137/43
--- NOTE | 2017-03-30 08:58 | Diagnostic Imaging Report ---
Indication: DYSPNEA Technique: XRAY CHEST 1 V Comparison:03/29/2017 Findings: Compared to previous study the infiltrate in the left lung has decreased. Patchy infiltrate in the right lung are unchanged. Heart is normal in size. Tracheostomy tube and pacemaker remain. Remainder the chest is unchanged. Impression: Decreased infiltrate in the left lung. No other significant change from previous study.
[2017-03-30] MEDS: Famotidine 20 MG/ 2ML VIAL IVP SCH (09:01)
[2017-03-30] MEDS: Levemir Flexpen SUBQ SCH (09:03)
[2017-03-30] MEDS: Heparin 5000 units/ml inj SUBQ SCH ×2 (09:04→20:37)
--- NOTE | 2017-03-30 10:31 | Infectious Diseases Prog Note ---
Assessment/Plan Assessment/Plan A: 1. Severe sepsis with multiorgan failure,s/p, secondary to MRSA pneumonia, non cavitary, w/o effusion s/p recent admission for hypoxemic resp failure and pneumonia, treated with D#7 IV vanc/cefepime completed on 08Mar2017 ucx neg 03/12 blood cx negative for MRSA/MSSA 2. Bibasilar staph aureus pneumonia, s/p D14 IV vanc completed on 03/26/17 3. Acute respiratory failure., SP trach 03/28/17 4. Acute renal failure, prerenal, sp 5. Diabetes type 2 with hyperglycemia and proteinuria 6. Dementia. 7. Methicillin resistant Staphylococcus aureus colonization. 8. lactic acidosis, resolved 9. CoNS bacteremia vs contamination (03/12), s/p >7D IV vanc. consider treated. 10. mild R>L Tinea cruris on clotrimazole, s/p 11. Cystitis, sterile, c/b microscopic hematuria. 12. bradycardia (CHB), s/p L groin temp venous pacemaker 03/25/17. s/p temp pacer removal 03/26, s/p L chest wall permanent pacemaker 03/26/17. 13. s/p TTE on [id number] with: Trace aortic regurgitation. Mild mitral regurgitation. Mitral inflow velocities indicates possible pseudo normalization pattern implying moderately elevated left atrial pressure (Grade II). Mild tricuspid regurgitation. Tricuspid systolic velocities suggests peak right ventricular systolic pressure of 37 mmHg, consistent with borderline mild pulmonary hypertension. Plan: --Monitor off abx (03/27/17 s/p IV vancomycin D#14) (03/15 s/p IV meropenem D#4) --monitor CBC --monitor temp curve Subjective Constitutional: Denies: no symptoms, fever, chills, fatigue, anorexia, drenching sweats, other Allergies: Coded Allergies: LORAZEPAM (Unverified Allergy, Unknown, 03/02/17) METOCLOPRAMIDE (Unverified Allergy, Unknown, 03/02/17) QUETIAPINE (Unverified Allergy, Unknown, 03/02/17) ZOLPIDEM (Unverified Allergy, Unknown, 03/02/17) Objective Vital Signs Last 24 Hour Vital Signs Date Time Temp Pulse Resp B/P (MAP) Pulse Ox O2 Delivery O2 Flow Rate FiO2 03/30/17 09:11 60 18 30 03/30/17 08:00 30 03/30/17 07:51 97.8 60 18 137/43 100 Mechanical Ventilator 30 03/30/17 07:48 60 03/30/17 07:00 60 18 30 03/30/17 05:16 61 18 30 03/30/17 04:00 97.9 66 22 135/72 100 Mechanical Ventilator 03/30/17 04:00 30 03/30/17 04:00 60 03/30/17 03:08 60 18 30 03/30/17 01:15 63 18 30 03/30/17 00:00 72 03/30/17 00:00 30 03/29/17 23:49 98.1 72 21 141/61 100 Mechanical Ventilator 03/29/17 23:18 61 17 30 03/29/17 21:10 67 18 30 03/29/17 20:00 30 03/29/17 20:00 60 03/29/17 20:00 97.3 67 18 128/65 99 Mechanical Ventilator 03/29/17 19:05 63 18 30 03/29/17 16:30 62 18 30 03/29/17 16:20 60 03/29/17 16:00 30 03/29/17 16:00 99.0 60 18 129/49 100 Mechanical Ventilator 03/29/17 16:00 69 03/29/17 15:00 74 20 128/65 100 Mechanical Ventilator 03/29/17 14:48 65 20 30 03/29/17 14:00 71 18 135/50 100 Mechanical Ventilator 03/29/17 13:00 72 18 150/56 100 Mechanical Ventilator 30 03/29/17 12:42 63 18 30 03/29/17 12:00 74 03/29/17 12:00 30 03/29/17 12:00 98.7 74 20 142/40 100 Mechanical Ventilator 03/29/17 11:21 75 16 98 03/29/17 11:00 62 20 156/70 100 Mechanical Ventilator 03/29/17 10:45 60 18 30 Height (Feet): 5 Height (Inches): 2.00 Weight (Pounds): 149 HEENT: anicteric Respiratory/Chest: no accessory muscle use Cardiovascular: no gallop/murmur Abdomen: no organomegaly Laboratory Tests Test 03/30/17 04:15 White Blood Count 7.0 K/UL (4.8-10.8) Red Blood Count 2.30 M/UL (4.20-5.40) L Hemoglobin 8.3 G/DL (12.0-16.0) L Hematocrit 23.6 % (37.0-47.0) L Mean Corpuscular Volume 103 FL (80-99) H Mean Corpuscular Hemoglobin 36.3 PG (27.0-31.0) H Mean Corpuscular Hemoglobin Concent 35.4 G/DL (32.0-36.0) Red Cell Distribution Width 14.4 % (11.6-14.8) Platelet Count 153 K/UL (150-450) Mean Platelet Volume 9.9 FL (6.5-10.1) Neutrophils (%) (Auto) 69.3 % (45.0-75.0) Lymphocytes (%) (Auto) 15.6 % (20.0-45.0) L Monocytes (%) (Auto) 10.0 % (1.0-10.0) Eosinophils (%) (Auto) 3.8 % (0.0-3.0) H Basophils (%) (Auto) 1.2 % (0.0-2.0) Sodium Level 141 mEQ/L (135-145) Potassium Level 4.1 mEQ/L (3.4-4.9) Chloride Level 105 mEQ/L (98-107) Carbon Dioxide Level 24 mEQ/L (20-30) Anion Gap 12 (5-15) Blood Urea Nitrogen 23 mg/dL (7-23) Creatinine 0.7 mg/dL (0.5-0.9) Estimat Glomerular Filtration Rate mL/min (>60) Glucose Level 169 mg/dL (74-106) H Calcium Level 9.0 mg/dL (8.6-10.2) Total Bilirubin 0.3 mg/dL (0.0-1.2) Aspartate Amino Transf (AST/SGOT) 18 U/L (5-40) Alanine Aminotransferase (ALT/SGPT) 8 U/L (3-33) Alkaline Phosphatase 102 U/L (35-104) Pro-B-Type Natriuretic Peptide 3886 pg/mL (0-450) H Total Protein 5.8 g/dL (6.6-8.7) L Albumin 2.6 g/dL (3.5-5.2) L Globulin 3.2 g/dL Albumin/Globulin Ratio 0.8 (1.0-2.7) L Current Medications Medications (Trade) Dose Ordered Sig/Ramiro Route PRN Reason Start Time Stop Time Status Last Admin Dose Admin Acetaminophen (Tylenol) 650 mg Q4H PRN ORAL fever>100.5 03/29/17 19:30 04/11/17 07:29 Acetaminophen (Tylenol) 650 mg Q6H PRN GT Mild Pain (Pain Scale 1-3) 03/29/17 17:45 04/25/17 17:44 Acetaminophen/ Hydrocodone Bitart ([place] 5/325) 1 tab Q4H PRN GT Moderate Pain (Pain Scale 4-6) 03/29/17 17:45 04/02/17 17:44 Artificial Tears (Akwa-Tears) 2 drop Q2H PRN BOTH EYES Dry Eyes 03/29/17 16:30 04/14/17 16:29 Clotrimazole (Lotrimin) 1 applic EVERY 12 HOURS TOPIC 03/29/17 21:00 04/19/17 20:59 03/30/17 09:01 Dextrose (Dextrose 50%) STAT PRN IV Hypoglycemia 03/30/17 10:00 04/11/17 09:59 Famotidine (Pepcid I.v.) 20 mg DAILY IVP 03/30/17 09:00 04/12/17 09:59 03/30/17 09:01 Heparin Sodium (Porcine) (Heparin 5000 units/ml) 5,000 units EVERY 12 HOURS SUBQ 03/29/17 21:00 04/11/17 08:59 03/30/17 09:04 Insulin Aspart (NovoLOG) Q6HR SUBQ 03/30/17 12:00 04/11/17 11:59 Insulin Detemir (Levemir) 5 units DAILY SUBQ 03/30/17 09:00 04/14/17 13:59 03/30/17 09:03 Ondansetron HCl (Zofran) 4 mg Q6H PRN IVP Nausea & Vomiting 03/29/17 19:30 04/11/17 07:29 Polyethylene Glycol (Miralax) 17 gm DAILYPRN PRN GT Constipation 03/29/17 18:00 04/11/17 07:29 HUSEYIN BERNARD M.D. Mar 30, 2017 10:31
--- NOTE | 2017-03-30 11:12 | General Progress Note ---
Progress Note Progress Note poday 2 sp tracheostomy. site clean. no respiratory distress present management RADHA ANDRADE Mar 30, 2017 11:12
--- NOTE | 2017-03-30 11:30 | General Progress Note ---
Assessment/Plan Status: stable - from renal stand Assessment/Plan Respiratory failure requiring intubation Severe sepsis secondary to pneumonia, resolving UTI Acute cystitis without hematuria Pneumonia, non cavitary, w/o effusion Dementia Acute renal failure , Dehydration Hypoxemic respiratory failure Type 2 diabetes mellitus with hyperglycemia Proteinuria Plan: Trached on 03/28 Pulm support- Monitor renal parameters Urine studies- Avoid Nephrotoxics- Per Orders Subjective ROS Limited/Unobtainable: Yes Allergies: Coded Allergies: LORAZEPAM (Unverified Allergy, Unknown, 03/02/17) METOCLOPRAMIDE (Unverified Allergy, Unknown, 03/02/17) QUETIAPINE (Unverified Allergy, Unknown, 03/02/17) ZOLPIDEM (Unverified Allergy, Unknown, 03/02/17) Objective Last 24 Hour Vital Signs Date Time Temp Pulse Resp B/P (MAP) Pulse Ox O2 Delivery O2 Flow Rate FiO2 03/30/17 10:35 76 20 30 03/30/17 09:11 60 18 30 03/30/17 08:00 30 03/30/17 07:51 97.8 60 18 137/43 100 Mechanical Ventilator 30 03/30/17 07:48 60 03/30/17 07:00 60 18 30 03/30/17 05:16 61 18 30 03/30/17 04:00 97.9 66 22 135/72 100 Mechanical Ventilator 03/30/17 04:00 30 03/30/17 04:00 60 03/30/17 03:08 60 18 30 03/30/17 01:15 63 18 30 03/30/17 00:00 72 03/30/17 00:00 30 03/29/17 23:49 98.1 72 21 141/61 100 Mechanical Ventilator 03/29/17 23:18 61 17 30 03/29/17 21:10 67 18 30 03/29/17 20:00 30 03/29/17 20:00 60 03/29/17 20:00 97.3 67 18 128/65 99 Mechanical Ventilator 03/29/17 19:05 63 18 30 03/29/17 16:30 62 18 30 03/29/17 16:20 60 03/29/17 16:00 30 03/29/17 16:00 99.0 60 18 129/49 100 Mechanical Ventilator 03/29/17 16:00 69 03/29/17 15:00 74 20 128/65 100 Mechanical Ventilator 30 03/29/17 14:48 65 20 30 03/29/17 14:00 71 18 135/50 100 Mechanical Ventilator 30 03/29/17 13:00 72 18 150/56 100 Mechanical Ventilator 30 03/29/17 12:42 63 18 30 03/29/17 12:00 74 03/29/17 12:00 30 03/29/17 12:00 98.7 74 20 142/40 100 Mechanical Ventilator 30 Intake and Output 03/30/17 03/31/17 19:00 07:00 Intake Total 280 ml Output Total 300 ml Balance -20 ml Free Water 50 ml Tube Feeding 180 ml Other 50 ml Output Urine Total 300 ml Laboratory Tests 03/30/17 04:15: White Blood Count 7.0, Red Blood Count 2.30L, Hemoglobin 8.3L, Hematocrit 23.6L , Mean Corpuscular Volume 103H, Mean Corpuscular Hemoglobin 36.3H, Mean Corpuscular Hemoglobin Concent 35.4, Red Cell Distribution Width 14.4, Platelet Count 153, Mean Platelet Volume 9.9, Neutrophils (%) (Auto) 69.3, Lymphocytes (% ) (Auto) 15.6L, Monocytes (%) (Auto) 10.0, Eosinophils (%) (Auto) 3.8H, Basophils (%) (Auto) 1.2, Sodium Level 141, Potassium Level 4.1, Chloride Level 105, Carbon Dioxide Level 24, Anion Gap 12, Blood Urea Nitrogen 23, Creatinine 0.7, Estimat Glomerular Filtration Rate , Glucose Level 169H, Calcium Level 9.0 , Total Bilirubin 0.3, Aspartate Amino Transf (AST/SGOT) 18, Alanine Aminotransferase (ALT/SGPT) 8, Alkaline Phosphatase 102, Pro-B-Type Natriuretic Peptide 3886H, Total Protein 5.8L, Albumin 2.6L, Globulin 3.2, Albumin/Globulin Ratio 0.8L Height (Feet): 5 Height (Inches): 2.00 Weight (Pounds): 149 General Appearance: no apparent distress Objective PE not changed IRWIN DAMON Mar 30, 2017 11:30
[2017-03-30 11:38] VITALS: BP 142/61
--- NOTE | 2017-03-30 11:38 | Pulmonology Progress Note ---
Assessment/Plan Assessment/Plan ASSESSMENT Severe sepsis with MOF Acute hypoxemic respiratory failure requiring intubation failure to wean s/p tracheostomy 03/28 Bilateral PNA with MRSA intermittent complete heart block s/p permanent pacemaker placement 03/26 ARF, likely due to dehydration- resolved Dehydration Hyperglycemia due to DM DM type 2 Lactic acidosis- resolved Hypernatremia due to dehydration, resolved Advanced dementia Dysphagia G tube Anemia of chronic disease, requiring transfusion Hypokalemia PLAN OF CARE BRAN hemodynamically stable (off pressors, BP and HR stable) Vent support Pulmonary toilet failure to wean s/p trach 03/28 due to prolonged ventilation, failure to wean respiratory status stable s/p Abx RX, ID follows urine cx negative, blood cx 1/4 +GPC in clusters, likely contaminant, sputum cx + MRSA observe off abx as per ID Nephro follows ARF and hyper Na resolved, likely due to dehydration renal US with R echogenic kidney, suggesting long standing renal artery stenosis , ECHO with EF 65% and RVSP of 37 K stable after replacement nephro follows Anemia workup c/w anemia of chronic disease, HH up after 1 u PRBC , stool OB negative Heme follows BS management with Levemir and SS of insulin prn , BS improving, [id number] Strict aspiration precautions, G tube feeding, monitor tolerance DVT GI prophylaxis dc planning on Saturday case discussed and evaluated by supervising physician Subjective Allergies: Coded Allergies: LORAZEPAM (Unverified Allergy, Unknown, 03/02/17) METOCLOPRAMIDE (Unverified Allergy, Unknown, 03/02/17) QUETIAPINE (Unverified Allergy, Unknown, 03/02/17) ZOLPIDEM (Unverified Allergy, Unknown, 03/02/17) Subjective transferred to BRAN ABG on settings stable no signs of respiratory distress on tele pacing Objective Last 24 Hour Vital Signs Date Time Temp Pulse Resp B/P (MAP) Pulse Ox O2 Delivery O2 Flow Rate FiO2 03/30/17 10:35 76 20 30 03/30/17 09:11 60 18 30 03/30/17 08:00 30 03/30/17 07:51 97.8 60 18 137/43 100 Mechanical Ventilator 30 03/30/17 07:48 60 03/30/17 07:00 60 18 30 03/30/17 05:16 61 18 30 03/30/17 04:00 97.9 66 22 135/72 100 Mechanical Ventilator 30 03/30/17 04:00 30 03/30/17 04:00 60 03/30/17 03:08 60 18 30 03/30/17 01:15 63 18 30 03/30/17 00:00 72 03/30/17 00:00 30 03/29/17 23:49 98.1 72 21 141/61 100 Mechanical Ventilator 03/29/17 23:18 61 17 30 03/29/17 21:10 67 18 30 03/29/17 20:00 30 03/29/17 20:00 60 03/29/17 20:00 97.3 67 18 128/65 99 Mechanical Ventilator 30 03/29/17 19:05 63 18 30 03/29/17 16:30 62 18 30 03/29/17 16:20 60 03/29/17 16:00 30 03/29/17 16:00 99.0 60 18 129/49 100 Mechanical Ventilator 03/29/17 16:00 69 03/29/17 15:00 74 20 128/65 100 Mechanical Ventilator 30 03/29/17 14:48 65 20 30 03/29/17 14:00 71 18 135/50 100 Mechanical Ventilator 30 03/29/17 13:00 72 18 150/56 100 Mechanical Ventilator 30 03/29/17 12:42 63 18 30 03/29/17 12:00 74 03/29/17 12:00 30 03/29/17 12:00 98.7 74 20 142/40 100 Mechanical Ventilator 30 Intake and Output 03/30/17 03/31/17 19:00 07:00 Intake Total 280 ml Output Total 300 ml Balance -20 ml Free Water 50 ml Tube Feeding 180 ml Other 50 ml Output Urine Total 300 ml Objective Status: awake, on vent AC 500-30%-18 Condition: critical HEENT: atraumatic, normocephalic, NECK: trach with Shiley #8, secretions moderate, yellow, thin Chest: few isolated rhonchi , left upper chest with pacemaker , with steri strips , no edema, no erythema Heart: HR/BP stable, SR on tele,with V pacing Abdomen: soft, non-tender, active bowel sounds, G tube with TF Extremities: no C/C/E Laboratory Tests 03/30/17 04:15: White Blood Count 7.0, Red Blood Count 2.30L, Hemoglobin 8.3L, Hematocrit 23.6L , Mean Corpuscular Volume 103H, Mean Corpuscular Hemoglobin 36.3H, Mean Corpuscular Hemoglobin Concent 35.4, Red Cell Distribution Width 14.4, Platelet Count 153, Mean Platelet Volume 9.9, Neutrophils (%) (Auto) 69.3, Lymphocytes (% ) (Auto) 15.6L, Monocytes (%) (Auto) 10.0, Eosinophils (%) (Auto) 3.8H, Basophils (%) (Auto) 1.2, Sodium Level 141, Potassium Level 4.1, Chloride Level 105, Carbon Dioxide Level 24, Anion Gap 12, Blood Urea Nitrogen 23, Creatinine 0.7, Estimat Glomerular Filtration Rate , Glucose Level 169H, Calcium Level 9.0 , Total Bilirubin 0.3, Aspartate Amino Transf (AST/SGOT) 18, Alanine Aminotransferase (ALT/SGPT) 8, Alkaline Phosphatase 102, Pro-B-Type Natriuretic Peptide 3886H, Total Protein 5.8L, Albumin 2.6L, Globulin 3.2, Albumin/Globulin Ratio 0.8L Current Medications Medications (Trade) Dose Ordered Sig/Ramiro Route PRN Reason Start Time Stop Time Status Last Admin Dose Admin Acetaminophen (Tylenol) 650 mg Q4H PRN ORAL fever>100.5 03/29/17 19:30 04/11/17 07:29 Acetaminophen (Tylenol) 650 mg Q6H PRN GT Mild Pain (Pain Scale 1-3) 03/29/17 17:45 04/25/17 17:44 Acetaminophen/ Hydrocodone Bitart ([place] 5/325) 1 tab Q4H PRN GT Moderate Pain (Pain Scale 4-6) 03/29/17 17:45 04/02/17 17:44 Artificial Tears (Akwa-Tears) 2 drop Q2H PRN BOTH EYES Dry Eyes 03/29/17 16:30 04/14/17 16:29 Clotrimazole (Lotrimin) 1 applic EVERY 12 HOURS TOPIC 03/29/17 21:00 04/19/17 20:59 03/30/17 09:01 Dextrose (Dextrose 50%) STAT PRN IV Hypoglycemia 03/30/17 10:00 04/11/17 09:59 Famotidine (Pepcid I.v.) 20 mg DAILY IVP 03/30/17 09:00 04/12/17 09:59 03/30/17 09:01 Heparin Sodium (Porcine) (Heparin 5000 units/ml) 5,000 units EVERY 12 HOURS SUBQ 03/29/17 21:00 04/11/17 08:59 03/30/17 09:04 Insulin Aspart (NovoLOG) Q6HR SUBQ 03/30/17 12:00 04/11/17 11:59 Insulin Detemir (Levemir) 5 units DAILY SUBQ 03/30/17 09:00 04/14/17 13:59 03/30/17 09:03 Ondansetron HCl (Zofran) 4 mg Q6H PRN IVP Nausea & Vomiting 03/29/17 19:30 04/11/17 07:29 Polyethylene Glycol (Miralax) 17 gm DAILYPRN PRN GT Constipation 03/29/17 18:00 04/11/17 07:29 [facility]Kathy NP Mar 30, 2017 11:38
--- NOTE | 2017-03-30 14:50 | Cardiac Electrophysiology PN ---
Assessment/Plan Problem List: (1) UTI (urinary tract infection) (2) Respiratory failure requiring intubation (3) Hyperglycemia due to type 2 diabetes mellitus (4) Feeding by G-tube (5) Bradycardia Status: stable, unchanged Status Narrative Pt hemodynamically stable, s/p trach for prolonged resp failure, s/p perm dual chamber pacemaker for intermittent CHB. Appropriate pacing/sensing on telemetry Anemia - stable Assessment/Plan Continue telemetry. Continue G tube feeds, vent support. No new cardiac recs. Subjective ROS Limited/Unobtainable: Yes Subjective Events noted. Pt s/p trach, on vent. Opens eyes/ moves upper extremities Objective Last 24 Hour Vital Signs Date Time Temp Pulse Resp B/P (MAP) Pulse Ox O2 Delivery O2 Flow Rate FiO2 03/30/17 13:25 60 18 30 03/30/17 12:08 67 03/30/17 12:00 30 03/30/17 11:38 97.7 77 18 142/61 98 Mechanical Ventilator 30 03/30/17 10:35 76 20 30 03/30/17 09:11 60 18 30 03/30/17 08:00 30 03/30/17 07:51 97.8 60 18 137/43 100 Mechanical Ventilator 30 03/30/17 07:48 60 03/30/17 07:00 60 18 30 03/30/17 05:16 61 18 30 03/30/17 04:00 97.9 66 22 135/72 100 Mechanical Ventilator 30 03/30/17 04:00 30 03/30/17 04:00 60 03/30/17 03:08 60 18 30 03/30/17 01:15 63 18 30 03/30/17 00:00 72 03/30/17 00:00 30 03/29/17 23:49 98.1 72 21 141/61 100 Mechanical Ventilator 30 03/29/17 23:18 61 17 30 03/29/17 21:10 67 18 30 03/29/17 20:00 30 03/29/17 20:00 60 03/29/17 20:00 97.3 67 18 128/65 99 Mechanical Ventilator 30 03/29/17 19:05 63 18 30 03/29/17 16:30 62 18 30 03/29/17 16:20 60 03/29/17 16:00 30 03/29/17 16:00 99.0 60 18 129/49 100 Mechanical Ventilator 30 03/29/17 16:00 69 03/29/17 15:00 74 20 128/65 100 Mechanical Ventilator 30 03/29/17 14:48 65 20 30 General Appearance: WD/WN, alert, obese, on vent EENT: PERRL/EOMI Neck: non-tender, no JVD Rhythm: NSR Cardiovascular: normal rate, regular rhythm Respiratory/Chest: rhonchi - bilaterally - occ rhonchi bilat Abdomen: non tender, soft, other - + g tube Extremities: no swelling Intake and Output 03/30/17 03/31/17 19:00 07:00 Intake Total 280 ml Output Total 300 ml Balance -20 ml Free Water 50 ml Tube Feeding 180 ml Other 50 ml Output Urine Total 300 ml Laboratory Tests Test 03/30/17 04:15 White Blood Count 7.0 K/UL (4.8-10.8) Red Blood Count 2.30 M/UL (4.20-5.40) L Hemoglobin 8.3 G/DL (12.0-16.0) L Hematocrit 23.6 % (37.0-47.0) L Mean Corpuscular Volume 103 FL (80-99) H Mean Corpuscular Hemoglobin 36.3 PG (27.0-31.0) H Mean Corpuscular Hemoglobin Concent 35.4 G/DL (32.0-36.0) Red Cell Distribution Width 14.4 % (11.6-14.8) Platelet Count 153 K/UL (150-450) Mean Platelet Volume 9.9 FL (6.5-10.1) Neutrophils (%) (Auto) 69.3 % (45.0-75.0) Lymphocytes (%) (Auto) 15.6 % (20.0-45.0) L Monocytes (%) (Auto) 10.0 % (1.0-10.0) Eosinophils (%) (Auto) 3.8 % (0.0-3.0) H Basophils (%) (Auto) 1.2 % (0.0-2.0) Sodium Level 141 mEQ/L (135-145) Potassium Level 4.1 mEQ/L (3.4-4.9) Chloride Level 105 mEQ/L (98-107) Carbon Dioxide Level 24 mEQ/L (20-30) Anion Gap 12 (5-15) Blood Urea Nitrogen 23 mg/dL (7-23) Creatinine 0.7 mg/dL (0.5-0.9) Estimat Glomerular Filtration Rate mL/min (>60) Glucose Level 169 mg/dL (74-106) H Calcium Level 9.0 mg/dL (8.6-10.2) Total Bilirubin 0.3 mg/dL (0.0-1.2) Aspartate Amino Transf (AST/SGOT) 18 U/L (5-40) Alanine Aminotransferase (ALT/SGPT) 8 U/L (3-33) Alkaline Phosphatase 102 U/L (35-104) Pro-B-Type Natriuretic Peptide 3886 pg/mL (0-450) H Total Protein 5.8 g/dL (6.6-8.7) L Albumin 2.6 g/dL (3.5-5.2) L Globulin 3.2 g/dL Albumin/Globulin Ratio 0.8 (1.0-2.7) MAGNOLIA BRIGHT Mar 30, 2017 14:50
[2017-03-30 16:37] VITALS: BP 141/55
[2017-03-30 20:00] VITALS: BP 155/67
--- NOTE | 2017-03-30 21:56 | General Progress Note ---
Assessment/Plan Assessment/Plan 1. Leukocytosis, secondary to underlying sepsis. Continue monitoring. --> Has been resolved --> WBC wnl and remains stable 2. Anemia secondary to chronic disease. --> transfuse if hgb is less than 8 or symptomatic --> monitor counts --> has been stable >8 --> occult blood negative and hiv panel negative 3. Respiratory failure --> trach on 03/28 4. Symptomatic bradycardia --> cardiology following, pacemaker has been placed 5. Dysphagia, G tube feeds Subjective Constitutional: Reports: no symptoms HEENT: Reports: no symptoms Cardiovascular: Reports: no symptoms Respiratory: Reports: no symptoms Gastrointestinal/Abdominal: Reports: no symptoms Genitourinary: Reports: no symptoms Neurologic/Psychiatric: Reports: no symptoms Endocrine: Reports: no symptoms Hematologic/Lymphatic: Reports: anemia Allergies: Coded Allergies: LORAZEPAM (Unverified Allergy, Unknown, 03/02/17) METOCLOPRAMIDE (Unverified Allergy, Unknown, 03/02/17) QUETIAPINE (Unverified Allergy, Unknown, 03/02/17) ZOLPIDEM (Unverified Allergy, Unknown, 03/02/17) Subjective transferred to amanda opens eyes s/p trach Objective Last 24 Hour Vital Signs Date Time Temp Pulse Resp B/P (MAP) Pulse Ox O2 Delivery O2 Flow Rate FiO2 03/30/17 20:57 68 21 30 03/30/17 20:00 75 03/30/17 20:00 97.7 68 20 155/67 100 Mechanical Ventilator 03/30/17 20:00 30 03/30/17 19:12 72 19 30 03/30/17 16:55 70 18 30 03/30/17 16:37 97.8 65 18 141/55 98 Mechanical Ventilator 30 03/30/17 16:00 30 03/30/17 15:36 79 03/30/17 14:45 64 20 30 03/30/17 13:25 60 18 30 03/30/17 12:08 67 03/30/17 12:00 30 03/30/17 11:38 97.7 77 18 142/61 98 Mechanical Ventilator 03/30/17 10:35 76 20 30 03/30/17 09:11 60 18 30 03/30/17 08:00 30 03/30/17 07:51 97.8 60 18 137/43 100 Mechanical Ventilator 30 03/30/17 07:48 60 03/30/17 07:00 60 18 30 03/30/17 05:16 61 18 30 03/30/17 04:00 97.9 66 22 135/72 100 Mechanical Ventilator 30 03/30/17 04:00 30 03/30/17 04:00 60 03/30/17 03:08 60 18 30 03/30/17 01:15 63 18 30 03/30/17 00:00 72 03/30/17 00:00 30 03/29/17 23:49 98.1 72 21 141/61 100 Mechanical Ventilator 30 03/29/17 23:18 61 17 30 Intake and Output 03/30/17 03/31/17 19:00 07:00 Intake Total 600 ml Output Total 550 ml 302 ml Balance 50 ml -302 ml Free Water 150 ml Tube Feeding 450 ml Output Urine Total 550 ml 302 ml # Voids 1 Laboratory Tests 03/30/17 04:15: White Blood Count 7.0, Red Blood Count 2.30L, Hemoglobin 8.3L, Hematocrit 23.6L , Mean Corpuscular Volume 103H, Mean Corpuscular Hemoglobin 36.3H, Mean Corpuscular Hemoglobin Concent 35.4, Red Cell Distribution Width 14.4, Platelet Count 153, Mean Platelet Volume 9.9, Neutrophils (%) (Auto) 69.3, Lymphocytes (% ) (Auto) 15.6L, Monocytes (%) (Auto) 10.0, Eosinophils (%) (Auto) 3.8H, Basophils (%) (Auto) 1.2, Sodium Level 141, Potassium Level 4.1, Chloride Level 105, Carbon Dioxide Level 24, Anion Gap 12, Blood Urea Nitrogen 23, Creatinine 0.7, Estimat Glomerular Filtration Rate , Glucose Level 169H, Calcium Level 9.0 , Total Bilirubin 0.3, Aspartate Amino Transf (AST/SGOT) 18, Alanine Aminotransferase (ALT/SGPT) 8, Alkaline Phosphatase 102, Pro-B-Type Natriuretic Peptide 3886H, Total Protein 5.8L, Albumin 2.6L, Globulin 3.2, Albumin/Globulin Ratio 0.8L Height (Feet): 5 Height (Inches): 2.00 Weight (Pounds): 149 General Appearance: no apparent distress EENT: normal ENT inspection Neck: normal alignment Cardiovascular: normal peripheral pulses Edema: no edema noted Pedal (L), no edema noted Pedal (R) 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
[2017-03-30 23:25] VITALS: BP 152/69
[2017-03-31] MEDS: NovoLOG Insulin Flexpen SUBQ SCH ×4 (00:26→17:47)
[2017-03-31 04:00] VITALS: BP 149/71
[2017-03-31 05:13] LABS: BASOPHILS % (AUTO) 1.2 % (0.0-2.0); EOSINOPHILS % (AUTO) 4.3 % (0.0-3.0); LYMPHOCYTES % (AUTO) 14.3 % (20.0-45.0); MEAN CORPUSCULAR HEMOGLOBIN 33.9 PG (27.0-31.0); MEAN CORPUSCULAR HGB CONC 32.8 G/DL (32.0-36.0); MEAN CORPUSCULAR VOLUME 103 FL (80-99); MEAN PLATELET VOLUME 10.6 FL (6.5-10.1); MONOCYTES % (AUTO) 12.7 % (1.0-10.0); NEUTROPHILS % (AUTO) 67.6 % (45.0-75.0); PLATELET COUNT 146 K/UL (150-450); RED BLOOD COUNT 2.35 M/UL (4.20-5.40); RED CELL DISTRIBUTION WIDTH 14.4 % (11.6-14.8); WHITE BLOOD COUNT 7.2 K/UL (4.8-10.8)
[2017-03-31 05:43] LABS: ANION GAP 10 (5-15); CALCIUM 9.3 mg/dL (8.6-10.2); CARBON DIOXIDE 26 mEQ/L (20-30); CHLORIDE 103 mEQ/L (98-107); CREATININE 0.7 mg/dL (0.5-0.9); HEMOLYSIS 3; SODIUM 139 mEQ/L (135-145)
[2017-03-31 08:00] VITALS: BP 152/87
--- NOTE | 2017-03-31 08:00 | Infectious Diseases Prog Note ---
Assessment/Plan Assessment/Plan A: MRSA pneumonia s/p RX Conjunctivitis VDRF Dementia DM type 2 P; Start on Cipro eye drop Subjective ROS Limited/Unobtainable: Yes Allergies: Coded Allergies: LORAZEPAM (Unverified Allergy, Unknown, 03/02/17) METOCLOPRAMIDE (Unverified Allergy, Unknown, 03/02/17) QUETIAPINE (Unverified Allergy, Unknown, 03/02/17) ZOLPIDEM (Unverified Allergy, Unknown, 03/02/17) Objective Vital Signs Last 24 Hour Vital Signs Date Time Temp Pulse Resp B/P (MAP) Pulse Ox O2 Delivery O2 Flow Rate FiO2 03/31/17 07:23 102 26 30 03/31/17 05:30 70 18 30 03/31/17 04:00 98.5 75 17 149/71 98 Mechanical Ventilator 30 03/31/17 04:00 30 03/31/17 03:37 60 03/31/17 03:05 60 18 30 03/31/17 00:53 61 18 30 03/31/17 00:00 30 03/31/17 00:00 61 03/30/17 23:25 98.1 61 18 152/69 100 Mechanical Ventilator 30 03/30/17 23:04 62 18 30 03/30/17 20:57 68 21 30 03/30/17 20:00 75 03/30/17 20:00 97.7 68 20 155/67 100 Mechanical Ventilator 30 03/30/17 20:00 30 03/30/17 19:12 72 19 30 03/30/17 16:55 70 18 30 03/30/17 16:37 97.8 65 18 141/55 98 Mechanical Ventilator 03/30/17 16:00 30 03/30/17 15:36 79 03/30/17 14:45 64 20 30 03/30/17 13:25 60 18 30 03/30/17 12:08 67 03/30/17 12:00 30 03/30/17 11:38 97.7 77 18 142/61 98 Mechanical Ventilator 30 03/30/17 10:35 76 20 30 03/30/17 09:11 60 18 30 03/30/17 08:00 30 Height (Feet): 5 Height (Inches): 2.00 Weight (Pounds): 148 General Appearance: no acute distress HEENT: status post trach, other - eye discharge Respiratory/Chest: other - on ventilator, coarse sounds Cardiovascular: normal rate Abdomen: soft, non tender, other - GT feeding Extremities: no edema Neurologic/Psychiatric: disoriented, aphasia Laboratory Tests Test 03/31/17 03:30 White Blood Count 7.2 K/UL (4.8-10.8) Red Blood Count 2.35 M/UL (4.20-5.40) L Hemoglobin 8.0 G/DL (12.0-16.0) L Hematocrit 24.3 % (37.0-47.0) L Mean Corpuscular Volume 103 FL (80-99) H Mean Corpuscular Hemoglobin 33.9 PG (27.0-31.0) H Mean Corpuscular Hemoglobin Concent 32.8 G/DL (32.0-36.0) Red Cell Distribution Width 14.4 % (11.6-14.8) Platelet Count 146 K/UL (150-450) L Mean Platelet Volume 10.6 FL (6.5-10.1) H Neutrophils (%) (Auto) 67.6 % (45.0-75.0) Lymphocytes (%) (Auto) 14.3 % (20.0-45.0) L Monocytes (%) (Auto) 12.7 % (1.0-10.0) H Eosinophils (%) (Auto) 4.3 % (0.0-3.0) H Basophils (%) (Auto) 1.2 % (0.0-2.0) Sodium Level 139 mEQ/L (135-145) Potassium Level 4.0 mEQ/L (3.4-4.9) Chloride Level 103 mEQ/L (98-107) Carbon Dioxide Level 26 mEQ/L (20-30) Anion Gap 10 (5-15) Blood Urea Nitrogen 23 mg/dL (7-23) Creatinine 0.7 mg/dL (0.5-0.9) Estimat Glomerular Filtration Rate mL/min (>60) Glucose Level 158 mg/dL (74-106) H Calcium Level 9.3 mg/dL (8.6-10.2) Current Medications Medications (Trade) Dose Ordered Sig/Ramiro Route PRN Reason Start Time Stop Time Status Last Admin Dose Admin Acetaminophen (Tylenol) 650 mg Q4H PRN ORAL fever>100.5 03/29/17 19:30 04/11/17 07:29 Acetaminophen (Tylenol) 650 mg Q6H PRN GT Mild Pain (Pain Scale 1-3) 03/29/17 17:45 04/25/17 17:44 Acetaminophen/ Hydrocodone Bitart ([place] 5/325) 1 tab Q4H PRN GT Moderate Pain (Pain Scale 4-6) 03/29/17 17:45 04/02/17 17:44 03/30/17 20:38 Artificial Tears (Akwa-Tears) 2 drop Q2H PRN BOTH EYES Dry Eyes 03/29/17 16:30 04/14/17 16:29 Clotrimazole (Lotrimin) 1 applic EVERY 12 HOURS TOPIC 03/29/17 21:00 04/19/17 20:59 03/30/17 20:35 Dextrose (Dextrose 50%) STAT PRN IV Hypoglycemia 03/30/17 10:00 04/11/17 09:59 Famotidine (Pepcid I.v.) 20 mg DAILY IVP 03/30/17 09:00 04/12/17 09:59 03/30/17 09:01 Heparin Sodium (Porcine) (Heparin 5000 units/ml) 5,000 units EVERY 12 HOURS SUBQ 03/29/17 21:00 04/11/17 08:59 03/30/17 20:37 Insulin Aspart (NovoLOG) Q6HR SUBQ 03/30/17 12:00 04/11/17 11:59 03/31/17 05:41 Insulin Detemir (Levemir) 5 units DAILY SUBQ 03/30/17 09:00 04/14/17 13:59 03/30/17 09:03 Ondansetron HCl (Zofran) 4 mg Q6H PRN IVP Nausea & Vomiting 03/29/17 19:30 04/11/17 07:29 Polyethylene Glycol (Miralax) 17 gm DAILYPRN PRN GT Constipation 03/29/17 18:00 04/11/17 07:29 LEON HINES Mar 31, 2017 08:00
--- NOTE | 2017-03-31 09:54 | Pulmonology Progress Note ---
Assessment/Plan Assessment/Plan ASSESSMENT Severe sepsis with MOF Acute hypoxemic respiratory failure requiring intubation failure to wean s/p tracheostomy 03/28 Bilateral PNA with MRSA intermittent complete heart block s/p permanent pacemaker placement 03/26 ARF, likely due to dehydration- resolved Dehydration Hyperglycemia due to DM DM type 2 Lactic acidosis- resolved Hypernatremia due to dehydration, resolved Advanced dementia Dysphagia G tube Anemia of chronic disease, requiring transfusion Hypokalemia PLAN OF CARE BRAN hemodynamically stable (off pressors, BP and HR stable) Vent support Pulmonary toilet failure to wean s/p trach 03/28 due to prolonged ventilation, failure to wean respiratory status stable CXR in am s/p Abx RX, ID follows urine cx negative, blood cx 1/4 +GPC in clusters, likely contaminant, sputum cx + MRSA observe off abx as per ID Nephro follows ARF and hyper Na resolved, likely due to dehydration renal US with R echogenic kidney, suggesting long standing renal artery stenosis , ECHO with EF 65% and RVSP of 37 K stable after replacement nephro follows Anemia workup c/w anemia of chronic disease, HH down this am give 1 u PRBC stool OB negative Heme follows BS management with Levemir and SS of insulin prn , BS improving, KiO0g-2.2 Strict aspiration precautions, G tube feeding, monitor tolerance DVT GI prophylaxis dc planning on Saturday case discussed and evaluated by supervising physician Subjective Allergies: Coded Allergies: LORAZEPAM (Unverified Allergy, Unknown, 03/02/17) METOCLOPRAMIDE (Unverified Allergy, Unknown, 03/02/17) QUETIAPINE (Unverified Allergy, Unknown, 03/02/17) ZOLPIDEM (Unverified Allergy, Unknown, 03/02/17) Subjective in BRAN ABG on settings stable no signs of respiratory distress on tele pacing HH trendign down Objective Last 24 Hour Vital Signs Date Time Temp Pulse Resp B/P (MAP) Pulse Ox O2 Delivery O2 Flow Rate FiO2 03/31/17 09:28 64 18 30 03/31/17 07:23 102 26 30 03/31/17 05:30 70 18 30 03/31/17 04:00 98.5 75 17 149/71 98 Mechanical Ventilator 30 03/31/17 04:00 30 03/31/17 03:37 60 03/31/17 03:05 60 18 30 03/31/17 00:53 61 18 30 9/10/17 00:00 30 03/31/17 00:00 61 03/30/17 23:25 98.1 61 18 152/69 100 Mechanical Ventilator 30 03/30/17 23:04 62 18 30 03/30/17 20:57 68 21 30 03/30/17 20:00 75 03/30/17 20:00 97.7 68 20 155/67 100 Mechanical Ventilator 30 03/30/17 20:00 30 03/30/17 19:12 72 19 30 03/30/17 16:55 70 18 30 03/30/17 16:37 97.8 65 18 141/55 98 Mechanical Ventilator 30 03/30/17 16:00 30 03/30/17 15:36 79 03/30/17 14:45 64 20 30 03/30/17 13:25 60 18 30 03/30/17 12:08 67 03/30/17 12:00 30 03/30/17 11:38 97.7 77 18 142/61 98 Mechanical Ventilator 30 03/30/17 10:35 76 20 30 Objective Status: awake, on vent AC 500-30%-18 Condition: critical HEENT: atraumatic, normocephalic, NECK: trach with Shiley #8, secretions moderate, yellow, thin Chest: few isolated rhonchi , left upper chest with pacemaker , with steri strips , no edema, no erythema Heart: HR/BP stable, SR on tele,with V pacing Abdomen: soft, non-tender, active bowel sounds, G tube with TF Extremities: no C/C/E Laboratory Tests 03/31/17 03:30: White Blood Count 7.2, Red Blood Count 2.35L, Hemoglobin 8.0L, Hematocrit 24.3L , Mean Corpuscular Volume 103H, Mean Corpuscular Hemoglobin 33.9H, Mean Corpuscular Hemoglobin Concent 32.8, Red Cell Distribution Width 14.4, Platelet Count 146L, Mean Platelet Volume 10.6H, Neutrophils (%) (Auto) 67.6, Lymphocytes (%) (Auto) 14.3L, Monocytes (%) (Auto) 12.7H, Eosinophils (%) (Auto ) 4.3H, Basophils (%) (Auto) 1.2, Sodium Level 139, Potassium Level 4.0, Chloride Level 103, Carbon Dioxide Level 26, Anion Gap 10, Blood Urea Nitrogen 23, Creatinine 0.7, Estimat Glomerular Filtration Rate , Glucose Level 158H, Calcium Level 9.3 Current Medications Medications (Trade) Dose Ordered Sig/Ramiro Route PRN Reason Start Time Stop Time Status Last Admin Dose Admin Acetaminophen (Tylenol) 650 mg Q4H PRN ORAL fever>100.5 03/29/17 19:30 04/11/17 07:29 Acetaminophen (Tylenol) 650 mg Q6H PRN GT Mild Pain (Pain Scale 1-3) 03/29/17 17:45 04/25/17 17:44 Acetaminophen/ Hydrocodone Bitart ([place] 5/325) 1 tab Q4H PRN GT Moderate Pain (Pain Scale 4-6) 03/29/17 17:45 04/02/17 17:44 03/30/17 20:38 Artificial Tears (Akwa-Tears) 2 drop Q2H PRN BOTH EYES Dry Eyes 03/29/17 16:30 04/14/17 16:29 Ciprofloxacin (Ciloxan Opth Soln) 1 drop Q8HR BOTH EYES 03/31/17 14:00 04/07/17 13:59 Clotrimazole (Lotrimin) 1 applic EVERY 12 HOURS TOPIC 03/29/17 21:00 04/19/17 20:59 03/30/17 20:35 Dextrose (Dextrose 50%) STAT PRN IV Hypoglycemia 03/30/17 10:00 04/11/17 09:59 Famotidine (Pepcid I.v.) 20 mg DAILY IVP 03/30/17 09:00 04/12/17 09:59 03/30/17 09:01 Heparin Sodium (Porcine) (Heparin 5000 units/ml) 5,000 units EVERY 12 HOURS SUBQ 03/29/17 21:00 04/11/17 08:59 03/30/17 20:37 Insulin Aspart (NovoLOG) Q6HR SUBQ 03/30/17 12:00 04/11/17 11:59 03/31/17 05:41 Insulin Detemir (Levemir) 5 units DAILY SUBQ 03/30/17 09:00 04/14/17 13:59 03/30/17 09:03 Ondansetron HCl (Zofran) 4 mg Q6H PRN IVP Nausea & Vomiting 03/29/17 19:30 04/11/17 07:29 Polyethylene Glycol (Miralax) 17 gm DAILYPRN PRN GT Constipation 03/29/17 18:00 04/11/17 07:29 Yuri ([facility])Kathy NP Mar 31, 2017 09:54
[2017-03-31] MEDS: Famotidine 20 MG/ 2ML VIAL IVP SCH (10:10)
[2017-03-31] MEDS: Heparin 5000 units/ml inj SUBQ SCH ×2 (10:22→20:30)
[2017-03-31] MEDS: Levemir Flexpen SUBQ SCH (10:26)
[2017-03-31] MEDS ORDERED: DuoNeb 0.5-3(2.5)mg/3ml neb HHN PRN (11:00)
--- NOTE | 2017-03-31 11:14 | General Progress Note ---
Assessment/Plan Status: stable Assessment/Plan Respiratory failure requiring intubation Severe sepsis secondary to pneumonia, resolving UTI Acute cystitis without hematuria Pneumonia, non cavitary, w/o effusion Dementia Acute renal failure , Dehydration Hypoxemic respiratory failure Type 2 diabetes mellitus with hyperglycemia Proteinuria Plan: Trached on 03/28 Pulm support- Monitor renal parameters Urine studies- Avoid Nephrotoxics- Per Orders Subjective ROS Limited/Unobtainable: Yes Allergies: Coded Allergies: LORAZEPAM (Unverified Allergy, Unknown, 03/02/17) METOCLOPRAMIDE (Unverified Allergy, Unknown, 03/02/17) QUETIAPINE (Unverified Allergy, Unknown, 03/02/17) ZOLPIDEM (Unverified Allergy, Unknown, 03/02/17) Objective Last 24 Hour Vital Signs Date Time Temp Pulse Resp B/P (MAP) Pulse Ox O2 Delivery O2 Flow Rate FiO2 03/31/17 11:10 61 18 30 03/31/17 09:28 64 18 30 03/31/17 07:23 102 26 30 03/31/17 05:30 70 18 30 03/31/17 04:00 98.5 75 17 149/71 98 Mechanical Ventilator 30 03/31/17 04:00 30 03/31/17 03:37 60 03/31/17 03:05 60 18 30 03/31/17 00:53 61 18 30 03/31/17 00:00 30 03/31/17 00:00 61 03/30/17 23:25 98.1 61 18 152/69 100 Mechanical Ventilator 30 03/30/17 23:04 62 18 30 03/30/17 20:57 68 21 30 03/30/17 20:00 75 03/30/17 20:00 97.7 68 20 155/67 100 Mechanical Ventilator 30 03/30/17 20:00 30 03/30/17 19:12 72 19 30 03/30/17 16:55 70 18 30 03/30/17 16:37 97.8 65 18 141/55 98 Mechanical Ventilator 30 03/30/17 16:00 30 03/30/17 15:36 79 03/30/17 14:45 64 20 30 03/30/17 13:25 60 18 30 03/30/17 12:08 67 03/30/17 12:00 30 03/30/17 11:38 97.7 77 18 142/61 98 Mechanical Ventilator 30 Laboratory Tests 03/31/17 03:30: White Blood Count 7.2, Red Blood Count 2.35L, Hemoglobin 8.0L, Hematocrit 24.3L , Mean Corpuscular Volume 103H, Mean Corpuscular Hemoglobin 33.9H, Mean Corpuscular Hemoglobin Concent 32.8, Red Cell Distribution Width 14.4, Platelet Count 146L, Mean Platelet Volume 10.6H, Neutrophils (%) (Auto) 67.6, Lymphocytes (%) (Auto) 14.3L, Monocytes (%) (Auto) 12.7H, Eosinophils (%) (Auto ) 4.3H, Basophils (%) (Auto) 1.2, Sodium Level 139, Potassium Level 4.0, Chloride Level 103, Carbon Dioxide Level 26, Anion Gap 10, Blood Urea Nitrogen 23, Creatinine 0.7, Estimat Glomerular Filtration Rate , Glucose Level 158H, Calcium Level 9.3 Height (Feet): 5 Height (Inches): 2.00 Weight (Pounds): 148 General Appearance: no apparent distress Respiratory/Chest: decreased breath sounds Abdomen: soft Objective PE not changed IRWIN DAMON Mar 31, 2017 11:14
[2017-03-31 11:50] VITALS: BP 144/65
--- NOTE | 2017-03-31 12:56 | Cardiac Electrophysiology PN ---
Assessment/Plan Problem List: (1) UTI (urinary tract infection) (2) Respiratory failure requiring intubation (3) Hyperglycemia due to type 2 diabetes mellitus (4) Feeding by G-tube (5) Bradycardia Status: stable, unchanged Status Narrative Pt hemodynamically stable, s/p trach for prolonged resp failure, s/p perm dual chamber pacemaker for intermittent CHB. Predominantly ventricular pacing on telemetry/ sinus rhythm Anemia - stable Assessment/Plan Continue current treatment, vent support, g tube feeds May be able to increase AV interval to decrease % of RV pacing. Subjective ROS Limited/Unobtainable: Yes Subjective Events noted. Pt s/p trach, on vent. More alert Objective Last 24 Hour Vital Signs Date Time Temp Pulse Resp B/P (MAP) Pulse Ox O2 Delivery O2 Flow Rate FiO2 03/31/17 12:00 30 03/31/17 11:50 97.9 74 24 144/65 100 Mechanical Ventilator 03/31/17 11:10 61 18 30 03/31/17 09:28 64 18 30 03/31/17 08:00 30 03/31/17 08:00 60 03/31/17 08:00 97.9 77 20 152/87 98 Mechanical Ventilator 03/31/17 07:23 102 26 30 03/31/17 05:30 70 18 30 03/31/17 04:00 98.5 75 17 149/71 98 Mechanical Ventilator 03/31/17 04:00 30 03/31/17 03:37 60 03/31/17 03:05 60 18 30 03/31/17 00:53 61 18 30 03/31/17 00:00 30 03/31/17 00:00 61 03/30/17 23:25 98.1 61 18 152/69 100 Mechanical Ventilator 03/30/17 23:04 62 18 30 03/30/17 20:57 68 21 30 03/30/17 20:00 75 03/30/17 20:00 97.7 68 20 155/67 100 Mechanical Ventilator 03/30/17 20:00 30 03/30/17 19:12 72 19 30 03/30/17 16:55 70 18 30 03/30/17 16:37 97.8 65 18 141/55 98 Mechanical Ventilator 30 03/30/17 16:00 30 03/30/17 15:36 79 03/30/17 14:45 64 20 30 03/30/17 13:25 60 18 30 General Appearance: WD/WN, obese, on vent EENT: PERRL/EOMI Neck: other - trach Rhythm: NSR Cardiovascular: normal rate, regular rhythm, no gallop/murmur Respiratory/Chest: other - occ rhonchi Abdomen: normal bowel sounds, non tender, soft, other - g tube Extremities: no swelling Laboratory Tests Test 03/31/17 03:30 White Blood Count 7.2 K/UL (4.8-10.8) Red Blood Count 2.35 M/UL (4.20-5.40) L Hemoglobin 8.0 G/DL (12.0-16.0) L Hematocrit 24.3 % (37.0-47.0) L Mean Corpuscular Volume 103 FL (80-99) H Mean Corpuscular Hemoglobin 33.9 PG (27.0-31.0) H Mean Corpuscular Hemoglobin Concent 32.8 G/DL (32.0-36.0) Red Cell Distribution Width 14.4 % (11.6-14.8) Platelet Count 146 K/UL (150-450) L Mean Platelet Volume 10.6 FL (6.5-10.1) H Neutrophils (%) (Auto) 67.6 % (45.0-75.0) Lymphocytes (%) (Auto) 14.3 % (20.0-45.0) L Monocytes (%) (Auto) 12.7 % (1.0-10.0) H Eosinophils (%) (Auto) 4.3 % (0.0-3.0) H Basophils (%) (Auto) 1.2 % (0.0-2.0) Sodium Level 139 mEQ/L (135-145) Potassium Level 4.0 mEQ/L (3.4-4.9) Chloride Level 103 mEQ/L (98-107) Carbon Dioxide Level 26 mEQ/L (20-30) Anion Gap 10 (5-15) Blood Urea Nitrogen 23 mg/dL (7-23) Creatinine 0.7 mg/dL (0.5-0.9) Estimat Glomerular Filtration Rate mL/min (>60) Glucose Level 158 mg/dL (74-106) H Calcium Level 9.3 mg/dL (8.6-10.2) MAGNOLIA LIMA 10, 2017 12:56
[2017-03-31] MEDS: Ciprofloxacin Opth Soln BOTH EYES SCH ×2 (13:37→21:43)
[2017-03-31 16:00] VITALS: BP 97/51
[2017-03-31 20:00] VITALS: BP 160/72
--- NOTE | 2017-03-31 20:28 | General Progress Note ---
Assessment/Plan Assessment/Plan 1. Leukocytosis, secondary to underlying sepsis. Continue monitoring. --> Has been resolved --> WBC wnl and remains stable 2. Anemia secondary to chronic disease. --> transfuse if hgb is less than 8 or symptomatic --> monitor counts --> at 8 this morning, has received blood transfusion --> occult blood negative and hiv panel negative 3. Respiratory failure --> vent to trach on 03/28 4. Symptomatic bradycardia --> cardiology following, pacemaker has been placed 5. Dysphagia, G tube feeds Subjective Constitutional: Reports: no symptoms HEENT: Reports: no symptoms Cardiovascular: Reports: no symptoms Respiratory: Reports: no symptoms Gastrointestinal/Abdominal: Reports: no symptoms Genitourinary: Reports: no symptoms Neurologic/Psychiatric: Reports: no symptoms Endocrine: Reports: no symptoms Hematologic/Lymphatic: Reports: anemia Allergies: Coded Allergies: LORAZEPAM (Unverified Allergy, Unknown, 03/02/17) METOCLOPRAMIDE (Unverified Allergy, Unknown, 03/02/17) QUETIAPINE (Unverified Allergy, Unknown, 03/02/17) ZOLPIDEM (Unverified Allergy, Unknown, 03/02/17) Subjective hgb fell, to receive 1 unit prbc Objective Last 24 Hour Vital Signs Date Time Temp Pulse Resp B/P (MAP) Pulse Ox O2 Delivery O2 Flow Rate FiO2 03/31/17 20:00 97.9 65 18 160/72 100 Mechanical Ventilator 03/31/17 19:30 60 18 30 03/31/17 16:49 69 21 30 03/31/17 16:00 97.8 68 20 97/51 100 Mechanical Ventilator 03/31/17 16:00 67 03/31/17 16:00 30 03/31/17 14:51 67 18 30 03/31/17 13:06 60 18 30 03/31/17 12:00 30 03/31/17 11:51 60 03/31/17 11:50 97.9 74 24 144/65 100 Mechanical Ventilator 03/31/17 11:10 61 18 30 03/31/17 09:28 64 18 30 03/31/17 08:00 30 03/31/17 08:00 60 03/31/17 08:00 97.9 77 20 152/87 98 Mechanical Ventilator 03/31/17 07:23 102 26 30 03/31/17 05:30 70 18 30 03/31/17 04:00 98.5 75 17 149/71 98 Mechanical Ventilator 30 03/31/17 04:00 30 03/31/17 03:37 60 03/31/17 03:05 60 18 30 03/31/17 00:53 61 18 30 03/31/17 00:00 30 03/31/17 00:00 61 03/30/17 23:25 98.1 61 18 152/69 100 Mechanical Ventilator 30 03/30/17 23:04 62 18 30 03/30/17 20:57 68 21 30 Intake and Output 03/31/17 04/01/17 19:00 07:00 Intake Total 840 ml Balance 840 ml Free Water 200 ml Tube Feeding 540 ml Blood Product 100 ml # Voids 5 Laboratory Tests 03/31/17 03:30: White Blood Count 7.2, Red Blood Count 2.35L, Hemoglobin 8.0L, Hematocrit 24.3L , Mean Corpuscular Volume 103H, Mean Corpuscular Hemoglobin 33.9H, Mean Corpuscular Hemoglobin Concent 32.8, Red Cell Distribution Width 14.4, Platelet Count 146L, Mean Platelet Volume 10.6H, Neutrophils (%) (Auto) 67.6, Lymphocytes (%) (Auto) 14.3L, Monocytes (%) (Auto) 12.7H, Eosinophils (%) (Auto ) 4.3H, Basophils (%) (Auto) 1.2, Sodium Level 139, Potassium Level 4.0, Chloride Level 103, Carbon Dioxide Level 26, Anion Gap 10, Blood Urea Nitrogen 23, Creatinine 0.7, Estimat Glomerular Filtration Rate , Glucose Level 158H, Calcium Level 9.3 Height (Feet): 5 Height (Inches): 2.00 Weight (Pounds): 148 General Appearance: no apparent distress EENT: normal ENT inspection Neck: normal alignment Respiratory/Chest: other - vent++ Abdomen: normal bowel sounds Edema: mild edema Neurologic: no motor/sensory deficits Skin: warm/dry Saul Luque Mar 31, 2017 20:27
[2017-04-01] VITALS: BP 146/75
[2017-04-01 04:00] VITALS: BP 168/62
[2017-04-01 05:34] LABS: CARBON DIOXIDE 23 mEQ/L (20-30); CHLORIDE 100 mEQ/L (98-107); CREATININE 0.6 mg/dL (0.5-0.9); SODIUM 136 mEQ/L (135-145)
[2017-04-01] MEDS: Ciprofloxacin Opth Soln BOTH EYES SCH ×2 (05:34→14:11)
[2017-04-01 05:35] LABS: CALCIUM 9.4 mg/dL (8.6-10.2); HEMOLYSIS 4
[2017-04-01] MEDS: NovoLOG Insulin Flexpen SUBQ SCH ×4 (05:35→17:14)
[2017-04-01 05:54] LABS: BASOPHILS % (AUTO) 1.2 % (0.0-2.0); EOSINOPHILS % (AUTO) 3.9 % (0.0-3.0); MEAN CORPUSCULAR HEMOGLOBIN 35.2 PG (27.0-31.0); MEAN CORPUSCULAR VOLUME 100 FL (80-99); MEAN PLATELET VOLUME 9.9 FL (6.5-10.1); MONOCYTES % (AUTO) 11.3 % (1.0-10.0); NEUTROPHILS % (AUTO) 70.6 % (45.0-75.0); PLATELET COUNT 136 K/UL (150-450); RED BLOOD COUNT 2.88 M/UL (4.20-5.40); RED CELL DISTRIBUTION WIDTH 14.3 % (11.6-14.8); WHITE BLOOD COUNT 7.3 K/UL (4.8-10.8)
[2017-04-01 06:00] LABS: ANION GAP 13 (5-15); POTASSIUM 4.2 mEQ/L (3.4-4.9)
[2017-04-01 08:00] VITALS: BP 161/79
[2017-04-01] MEDS: Famotidine 20 MG/ 2ML VIAL IVP SCH (09:07)
[2017-04-01] MEDS: Heparin 5000 units/ml inj SUBQ SCH (09:07)
[2017-04-01] MEDS: Levemir Flexpen SUBQ SCH (09:08)
--- NOTE | 2017-04-01 10:48 | General Progress Note ---
Assessment/Plan Status: stable Assessment/Plan Respiratory failure requiring intubation Severe sepsis secondary to pneumonia, resolving UTI Acute cystitis without hematuria Pneumonia, non cavitary, w/o effusion Dementia Acute renal failure , Dehydration Hypoxemic respiratory failure Type 2 diabetes mellitus with hyperglycemia Proteinuria Plan: Trached on 03/28 Pulm support- Monitor renal parameters Urine studies- Avoid Nephrotoxics- Per Orders Subjective ROS Limited/Unobtainable: Yes Allergies: Coded Allergies: LORAZEPAM (Unverified Allergy, Unknown, 03/02/17) METOCLOPRAMIDE (Unverified Allergy, Unknown, 03/02/17) QUETIAPINE (Unverified Allergy, Unknown, 03/02/17) ZOLPIDEM (Unverified Allergy, Unknown, 03/02/17) Objective Last 24 Hour Vital Signs Date Time Temp Pulse Resp B/P (MAP) Pulse Ox O2 Delivery O2 Flow Rate FiO2 04/01/17 09:15 60 18 30 04/01/17 08:00 67 04/01/17 08:00 30 04/01/17 08:00 98.1 67 20 161/79 100 Mechanical Ventilator 04/01/17 06:55 67 20 30 04/01/17 04:57 66 18 30 04/01/17 04:00 97.9 68 18 168/62 100 Mechanical Ventilator 04/01/17 04:00 30 04/01/17 04:00 63 04/01/17 03:07 61 18 30 04/01/17 01:05 71 23 30 04/01/17 00:00 98.1 71 18 146/75 100 Mechanical Ventilator 04/01/17 00:00 60 04/01/17 00:00 30 03/31/17 23:15 64 18 30 03/31/17 21:30 62 18 30 03/31/17 20:00 97.9 65 18 160/72 100 Mechanical Ventilator 30 03/31/17 20:00 30 03/31/17 20:00 60 03/31/17 19:30 60 18 30 03/31/17 16:49 69 21 30 03/31/17 16:00 97.8 68 20 97/51 100 Mechanical Ventilator 30 03/31/17 16:00 67 03/31/17 16:00 30 03/31/17 14:51 67 18 30 03/31/17 13:06 60 18 30 03/31/17 12:00 30 03/31/17 11:51 60 03/31/17 11:50 97.9 74 24 144/65 100 Mechanical Ventilator 30 03/31/17 11:10 61 18 30 Intake and Output 04/01/17 04/02/17 19:00 07:00 Intake Total 135 ml Balance 135 ml Tube Feeding 135 ml Laboratory Tests 04/01/17 03:50: White Blood Count 7.3, Red Blood Count 2.88L, Hemoglobin 10.1L, Hematocrit 28.9L , Mean Corpuscular Volume 100H, Mean Corpuscular Hemoglobin 35.2H, Mean Corpuscular Hemoglobin Concent 35.0, Red Cell Distribution Width 14.3, Platelet Count 136L, Mean Platelet Volume 9.9, Neutrophils (%) (Auto) 70.6, Lymphocytes ( %) (Auto) 13.0L, Monocytes (%) (Auto) 11.3H, Eosinophils (%) (Auto) 3.9H, Basophils (%) (Auto) 1.2, Sodium Level 136, Potassium Level 4.2, Chloride Level 100, Carbon Dioxide Level 23, Anion Gap 13, Blood Urea Nitrogen 22, Creatinine 0.6, Estimat Glomerular Filtration Rate , Glucose Level 210H, Calcium Level 9.4 Height (Feet): 5 Height (Inches): 2.00 Weight (Pounds): 149 General Appearance: no apparent distress Objective PE not changed IRWIN DAMON Apr 01, 2017 10:48
--- NOTE | 2017-04-01 10:50 | Diagnostic Imaging Report ---
Indication: SOB Technique: One view of the chest Comparison: 03/30/2017 Findings: Heart size is normal. There are bilateral right greater than left interstitial and alveolar infiltrates versus edema. Pleural spaces are clear. There is a left chest pacemaker and a tracheostomy inspiration is slightly better on the current exam. Findings are otherwise unchanged Impression: Unchanged, over 2 days, findings as above.
--- NOTE | 2017-04-01 11:31 | Pulmonology Progress Note ---
Assessment/Plan Problems: (1) Respiratory failure requiring intubation (2) Severe sepsis (3) Pneumonia (4) Feeding by G-tube (5) Advanced dementia Respiratory: monitor respiratory rate, adjust FIO2, CXR Cardiac: continue to monitor HR/BP Renal: F/U I&O, keep IV fluid, check electrolytes Infectious Disease: check cultures Gastrointestinal: continue feedings/current rate Endocrine: monitor blood sugar, check HgA1C, continue sliding scale insulin Hematologic: monitor H/H, transfuse if hgb<8.5 Neurologic: PRN Ativan, keep patient comfortable Affect: PRN ativan Prophylaxis: Protonix, Heparin Disposition: keep in ICU Notes Reviewed: animal ride manager, renal Discussed with: nurses, consultants, caseworker protective services Subjective ROS Limited/Unobtainable: No Constitutional: Reports: no symptoms HEENT: Repors: no symptoms Allergies: Coded Allergies: LORAZEPAM (Unverified Allergy, Unknown, 03/02/17) METOCLOPRAMIDE (Unverified Allergy, Unknown, 03/02/17) QUETIAPINE (Unverified Allergy, Unknown, 03/02/17) ZOLPIDEM (Unverified Allergy, Unknown, 03/02/17) Objective Last 24 Hour Vital Signs Date Time Temp Pulse Resp B/P (MAP) Pulse Ox O2 Delivery O2 Flow Rate FiO2 04/01/17 11:20 60 18 30 04/01/17 09:15 60 18 30 04/01/17 09:00 100 04/01/17 08:00 67 04/01/17 08:00 30 04/01/17 08:00 98.1 67 20 161/79 100 Mechanical Ventilator 30 04/01/17 06:55 67 20 30 04/01/17 04:57 66 18 30 04/01/17 04:00 97.9 68 18 168/62 100 Mechanical Ventilator 30 04/01/17 04:00 30 04/01/17 04:00 63 04/01/17 03:07 61 18 30 04/01/17 01:05 71 23 30 04/01/17 00:00 98.1 71 18 146/75 100 Mechanical Ventilator 30 04/01/17 00:00 60 04/01/17 00:00 30 03/31/17 23:15 64 18 30 03/31/17 21:30 62 18 30 03/31/17 20:00 97.9 65 18 160/72 100 Mechanical Ventilator 30 03/31/17 20:00 30 03/31/17 20:00 60 03/31/17 19:30 60 18 30 03/31/17 16:49 69 21 30 03/31/17 16:00 97.8 68 20 97/51 100 Mechanical Ventilator 30 03/31/17 16:00 67 03/31/17 16:00 30 03/31/17 14:51 67 18 30 03/31/17 13:06 60 18 30 03/31/17 12:00 30 03/31/17 11:51 60 03/31/17 11:50 97.9 74 24 144/65 100 Mechanical Ventilator 30 Intake and Output 04/01/17 04/02/17 19:00 07:00 Intake Total 135 ml Balance 135 ml Tube Feeding 135 ml General Appearance: WD/WN HEENT: normocephalic, atraumatic Respiratory/Chest: chest wall non-tender, lungs clear Cardiovascular: normal peripheral pulses, normal rate Abdomen: normal bowel sounds, no organomegaly Genitourinary: normal external genitalia Extremities: no clubbing Skin: no lesions Laboratory Tests 04/01/17 03:50: White Blood Count 7.3, Red Blood Count 2.88L, Hemoglobin 10.1L, Hematocrit 28.9L , Mean Corpuscular Volume 100H, Mean Corpuscular Hemoglobin 35.2H, Mean Corpuscular Hemoglobin Concent 35.0, Red Cell Distribution Width 14.3, Platelet Count 136L, Mean Platelet Volume 9.9, Neutrophils (%) (Auto) 70.6, Lymphocytes ( %) (Auto) 13.0L, Monocytes (%) (Auto) 11.3H, Eosinophils (%) (Auto) 3.9H, Basophils (%) (Auto) 1.2, Sodium Level 136, Potassium Level 4.2, Chloride Level 100, Carbon Dioxide Level 23, Anion Gap 13, Blood Urea Nitrogen 22, Creatinine 0.6, Estimat Glomerular Filtration Rate , Glucose Level 210H, Calcium Level 9.4 Current Medications Medications (Trade) Dose Ordered Sig/Ramiro Route PRN Reason Start Time Stop Time Status Last Admin Dose Admin Acetaminophen (Tylenol) 650 mg Q4H PRN ORAL fever>100.5 03/29/17 19:30 04/11/17 07:29 Acetaminophen (Tylenol) 650 mg Q6H PRN GT Mild Pain (Pain Scale 1-3) 03/29/17 17:45 04/25/17 17:44 Acetaminophen/ Hydrocodone Bitart (Paul 5/325) 1 tab Q4H PRN GT Moderate Pain (Pain Scale 4-6) 03/29/17 17:45 04/02/17 17:44 03/30/17 20:38 Albuterol/ Ipratropium (DuoNeb 0.5-3(2.5)mg/3ml) 3 ml Q4HRT PRN HHN sob 03/31/17 11:00 04/05/17 10:59 Artificial Tears (Akwa-Tears) 2 drop Q2H PRN BOTH EYES Dry Eyes 03/29/17 16:30 04/14/17 16:29 Ciprofloxacin (Ciloxan Opth Soln) 1 drop Q8HR BOTH EYES 03/31/17 14:00 04/07/17 13:59 04/01/17 05:34 Clotrimazole (Lotrimin) 1 applic EVERY 12 HOURS TOPIC 03/29/17 21:00 04/19/17 20:59 04/01/17 09:06 Dextrose (Dextrose 50%) STAT PRN IV Hypoglycemia 03/30/17 10:00 04/11/17 09:59 Famotidine (Pepcid I.v.) 20 mg DAILY IVP 03/30/17 09:00 04/12/17 09:59 04/01/17 09:07 Heparin Sodium (Porcine) (Heparin 5000 units/ml) 5,000 units EVERY 12 HOURS SUBQ 03/29/17 21:00 04/11/17 08:59 04/01/17 09:07 Insulin Aspart (NovoLOG) Q6HR SUBQ 03/30/17 12:00 04/11/17 11:59 04/01/17 05:35 Insulin Detemir (Levemir) 5 units DAILY SUBQ 03/30/17 09:00 04/14/17 13:59 04/01/17 09:08 Ondansetron HCl (Zofran) 4 mg Q6H PRN IVP Nausea & Vomiting 03/29/17 19:30 04/11/17 07:29 Polyethylene Glycol (Miralax) 17 gm DAILYPRN PRN GT Constipation 03/29/17 18:00 04/11/17 07:29 ZAIRA ROSALES Apr 01, 2017 11:31
[2017-04-01 12:00] VITALS: BP 162/78
[2017-04-01 16:00] VITALS: BP 164/65
--- NOTE | 2017-04-01 16:29 | Infectious Diseases Prog Note ---
Assessment/Plan Assessment/Plan A: 1. Severe sepsis with multiorgan failure,s/p, secondary to MRSA pneumonia, non cavitary, w/o effusion s/p recent admission for hypoxemic resp failure and pneumonia, treated with D#7 IV vanc/cefepime completed on [id number] ucx neg 03/12 blood cx negative for MRSA/MSSA 2. Bibasilar staph aureus pneumonia, s/p D14 IV vanc completed on 03/26/17 3. Acute respiratory failure., SP trach 03/28/17 4. Conjunctivitis 5. Diabetes type 2 with hyperglycemia and proteinuria 6. Dementia. 7. Methicillin resistant Staphylococcus aureus colonization. 8. lactic acidosis, resolved 9. CoNS bacteremia vs contamination (03/12), s/p >7D IV vanc. consider treated. 10. mild R>L Tinea cruris on clotrimazole, s/p 11. Cystitis, sterile, c/b microscopic hematuria. 12. bradycardia (CHB), s/p L groin temp venous pacemaker 03/25/17. s/p temp pacer removal 03/26, s/p L chest wall permanent pacemaker 03/26/17. 13. s/p TTE on [id number] with: Trace aortic regurgitation. Mild mitral regurgitation. Mitral inflow velocities indicates possible pseudo normalization pattern implying moderately elevated left atrial pressure (Grade II). Mild tricuspid regurgitation. Tricuspid systolic velocities suggests peak right ventricular systolic pressure of 37 mmHg, consistent with borderline mild pulmonary hypertension. Plan: --Monitor off of IV abx , on Cipro eye drop d# 2/ 7 (03/27/17 s/p IV vancomycin D#14) (03/15 s/p IV meropenem D#4) --monitor CBC --monitor temp curve Subjective Constitutional: Denies: no symptoms, fever, chills, fatigue, anorexia, drenching sweats, other Allergies: Coded Allergies: LORAZEPAM (Unverified Allergy, Unknown, 03/02/17) METOCLOPRAMIDE (Unverified Allergy, Unknown, 03/02/17) QUETIAPINE (Unverified Allergy, Unknown, 03/02/17) ZOLPIDEM (Unverified Allergy, Unknown, 03/02/17) Objective Vital Signs Last 24 Hour Vital Signs Date Time Temp Pulse Resp B/P (MAP) Pulse Ox O2 Delivery O2 Flow Rate FiO2 04/01/17 16:00 61 04/01/17 16:00 30 04/01/17 15:20 60 18 30 04/01/17 13:10 60 18 30 04/01/17 12:00 71 04/01/17 12:00 30 04/01/17 12:00 97.7 64 18 162/78 100 Mechanical Ventilator 30 04/01/17 11:20 60 18 30 04/01/17 09:15 60 18 30 04/01/17 09:00 100 04/01/17 08:00 67 04/01/17 08:00 30 04/01/17 08:00 98.1 67 20 161/79 100 Mechanical Ventilator 30 04/01/17 06:55 67 20 30 04/01/17 04:57 66 18 30 04/01/17 04:00 97.9 68 18 168/62 100 Mechanical Ventilator 30 04/01/17 04:00 30 04/01/17 04:00 63 04/01/17 03:07 61 18 30 04/01/17 01:05 71 23 30 04/01/17 00:00 98.1 71 18 146/75 100 Mechanical Ventilator 30 04/01/17 00:00 60 04/01/17 00:00 30 03/31/17 23:15 64 18 30 03/31/17 21:30 62 18 30 03/31/17 20:00 97.9 65 18 160/72 100 Mechanical Ventilator 30 03/31/17 20:00 30 03/31/17 20:00 60 03/31/17 19:30 60 18 30 03/31/17 16:49 69 21 30 Height (Feet): 5 Height (Inches): 2.00 Weight (Pounds): 149 HEENT: anicteric Respiratory/Chest: normal breath sounds Cardiovascular: regular rhythm Abdomen: no organomegaly Laboratory Tests Test 04/01/17 03:50 White Blood Count 7.3 K/UL (4.8-10.8) Red Blood Count 2.88 M/UL (4.20-5.40) L Hemoglobin 10.1 G/DL (12.0-16.0) L Hematocrit 28.9 % (37.0-47.0) L Mean Corpuscular Volume 100 FL (80-99) H Mean Corpuscular Hemoglobin 35.2 PG (27.0-31.0) H Mean Corpuscular Hemoglobin Concent 35.0 G/DL (32.0-36.0) Red Cell Distribution Width 14.3 % (11.6-14.8) Platelet Count 136 K/UL (150-450) L Mean Platelet Volume 9.9 FL (6.5-10.1) Neutrophils (%) (Auto) 70.6 % (45.0-75.0) Lymphocytes (%) (Auto) 13.0 % (20.0-45.0) L Monocytes (%) (Auto) 11.3 % (1.0-10.0) H Eosinophils (%) (Auto) 3.9 % (0.0-3.0) H Basophils (%) (Auto) 1.2 % (0.0-2.0) Sodium Level 136 mEQ/L (135-145) Potassium Level 4.2 mEQ/L (3.4-4.9) Chloride Level 100 mEQ/L (98-107) Carbon Dioxide Level 23 mEQ/L (20-30) Anion Gap 13 (5-15) Blood Urea Nitrogen 22 mg/dL (7-23) Creatinine 0.6 mg/dL (0.5-0.9) Estimat Glomerular Filtration Rate mL/min (>60) Glucose Level 210 mg/dL (74-106) H Calcium Level 9.4 mg/dL (8.6-10.2) Current Medications Medications (Trade) Dose Ordered Sig/Ramiro Route PRN Reason Start Time Stop Time Status Last Admin Dose Admin Acetaminophen (Tylenol) 650 mg Q4H PRN ORAL fever>100.5 03/29/17 19:30 04/11/17 07:29 Acetaminophen (Tylenol) 650 mg Q6H PRN GT Mild Pain (Pain Scale 1-3) 03/29/17 17:45 04/25/17 17:44 Acetaminophen/ Hydrocodone Bitart (Hancock 5/325) 1 tab Q4H PRN GT Moderate Pain (Pain Scale 4-6) 03/29/17 17:45 04/02/17 17:44 03/30/17 20:38 Albuterol/ Ipratropium (DuoNeb 0.5-3(2.5)mg/3ml) 3 ml Q4HRT PRN HHN sob 03/31/17 11:00 04/05/17 10:59 Artificial Tears (Akwa-Tears) 2 drop Q2H PRN BOTH EYES Dry Eyes 03/29/17 16:30 04/14/17 16:29 Ciprofloxacin (Ciloxan Opth Soln) 1 drop Q8HR BOTH EYES 03/31/17 14:00 04/07/17 13:59 04/01/17 14:11 Clotrimazole (Lotrimin) 1 applic EVERY 12 HOURS TOPIC 03/29/17 21:00 04/19/17 20:59 04/01/17 09:06 Dextrose (Dextrose 50%) STAT PRN IV Hypoglycemia 03/30/17 10:00 04/11/17 09:59 Heparin Sodium (Porcine) (Heparin 5000 units/ml) 5,000 units EVERY 12 HOURS SUBQ 03/29/17 21:00 04/11/17 08:59 04/01/17 09:07 Insulin Aspart (NovoLOG) Q6HR SUBQ 03/30/17 12:00 04/11/17 11:59 04/01/17 12:01 Insulin Detemir (Levemir) 5 units DAILY SUBQ 03/30/17 09:00 04/14/17 13:59 04/01/17 09:08 Ondansetron HCl (Zofran) 4 mg Q6H PRN IVP Nausea & Vomiting 03/29/17 19:30 04/11/17 07:29 Polyethylene Glycol (Miralax) 17 gm DAILYPRN PRN GT Constipation 03/29/17 18:00 04/11/17 07:29 Ranitidine HCl (Zantac) 150 mg DAILY GT 04/02/17 09:00 05/02/17 08:59 HUSEYIN BERNARD M.D. Apr 01, 2017 16:29
--- NOTE | 2017-04-01 18:52 | Cardiology Report ---
APPROVED REPORT EKG Measurement Heart [id number] WI [id number] Sinus rhythm with 2nd degree AV block with 2:1 AV conduction most likely Type II Mobitz in view of RBBB morphology (infra-hisian block) Low voltage QRS Abnormal ECG
[2017-04-01] MEDS ORDERED: Tubing Blood Filter IV ONE (19:39)
[2017-04-01] MEDS ORDERED: NS 275ml ONE ×2 (19:39)
--- NOTE | 2017-04-01 21:19 | General Progress Note ---
Assessment/Plan Assessment/Plan 1. Leukocytosis, secondary to underlying sepsis. Continue monitoring. --> Has been resolved --> WBC wnl and remains stable 2. Anemia secondary to chronic disease. --> transfuse if hgb is less than 8 or symptomatic --> monitor counts --> s/p blood transfusion --> occult blood negative and hiv panel negative 3. Respiratory failure --> vent to trach on 03/28 4. Symptomatic bradycardia --> cardiology following, pacemaker has been placed 5. Dysphagia, G tube feeds Subjective Constitutional: Reports: no symptoms HEENT: Reports: no symptoms Cardiovascular: Reports: no symptoms Respiratory: Reports: no symptoms Gastrointestinal/Abdominal: Reports: no symptoms Genitourinary: Reports: no symptoms Neurologic/Psychiatric: Reports: no symptoms Endocrine: Reports: no symptoms Hematologic/Lymphatic: Reports: anemia Allergies: Coded Allergies: LORAZEPAM (Unverified Allergy, Unknown, 03/02/17) METOCLOPRAMIDE (Unverified Allergy, Unknown, 03/02/17) QUETIAPINE (Unverified Allergy, Unknown, 03/02/17) ZOLPIDEM (Unverified Allergy, Unknown, 03/02/17) Subjective HH better no events overnight Objective Last 24 Hour Vital Signs Date Time Temp Pulse Resp B/P (MAP) Pulse Ox O2 Delivery O2 Flow Rate FiO2 04/01/17 17:15 60 18 30 04/01/17 16:00 61 04/01/17 16:00 98.2 73 19 164/65 100 Mechanical Ventilator 30 04/01/17 16:00 30 04/01/17 15:20 60 18 30 04/01/17 13:10 60 18 30 04/01/17 12:00 71 04/01/17 12:00 30 04/01/17 12:00 97.7 64 18 162/78 100 Mechanical Ventilator 30 04/01/17 11:20 60 18 30 04/01/17 09:15 60 18 30 04/01/17 09:00 100 04/01/17 08:00 67 04/01/17 08:00 30 04/01/17 08:00 98.1 67 20 161/79 100 Mechanical Ventilator 30 04/01/17 06:55 67 20 30 04/01/17 04:57 66 18 30 04/01/17 04:00 97.9 68 18 168/62 100 Mechanical Ventilator 30 04/01/17 04:00 30 04/01/17 04:00 63 04/01/17 03:07 61 18 30 04/01/17 01:05 71 23 30 04/01/17 00:00 98.1 71 18 146/75 100 Mechanical Ventilator 30 04/01/17 00:00 60 04/01/17 00:00 30 03/31/17 23:15 64 18 30 03/31/17 21:30 62 18 30 Intake and Output 04/01/17 04/02/17 19:00 07:00 Intake Total 550 ml Output Total 201 ml Balance 349 ml Free Water 100 ml Tube Feeding 450 ml Output Urine Total 201 ml Laboratory Tests 04/01/17 03:50: White Blood Count 7.3, Red Blood Count 2.88L, Hemoglobin 10.1L, Hematocrit 28.9L , Mean Corpuscular Volume 100H, Mean Corpuscular Hemoglobin 35.2H, Mean Corpuscular Hemoglobin Concent 35.0, Red Cell Distribution Width 14.3, Platelet Count 136L, Mean Platelet Volume 9.9, Neutrophils (%) (Auto) 70.6, Lymphocytes ( %) (Auto) 13.0L, Monocytes (%) (Auto) 11.3H, Eosinophils (%) (Auto) 3.9H, Basophils (%) (Auto) 1.2, Sodium Level 136, Potassium Level 4.2, Chloride Level 100, Carbon Dioxide Level 23, Anion Gap 13, Blood Urea Nitrogen 22, Creatinine 0.6, Estimat Glomerular Filtration Rate , Glucose Level 210H, Calcium Level 9.4 Height (Feet): 5 Height (Inches): 2.00 Weight (Pounds): 149 General Appearance: no apparent distress EENT: PERRL/EOMI, normal ENT inspection Neck: non-tender, normal alignment Cardiovascular: regular rhythm Abdomen: non tender Extremities: normal range of motion Edema: no edema noted Pedal (L), no edema noted Pedal (R) Edema: trace edema Saul Luque Apr 01, 2017 21:19
--- NOTE | 2017-04-02 13:08 | Discharge Summary ---
Discharge Summary Hospital Course Date of Admission Mar 12, 2017 at 03:39 Date of Discharge Apr 01, 2017 at 19:40 Admitting Diagnosis SEVERE SEPSIS HPI Brit Harp is a 81 year old female who was admitted on Mar 12, 2017 at 03:39 for Severe Sepsis Hospital Course dc summary #[id number] Discharge Medications New Medications: Acetaminophen* (Acetaminophen 325MG Tablet*) 325 Mg Tablet 650 MG ORAL Q4H PRN for 30 Days, TAB Insulin Detemir (Levemir Flexpen) 100 Unit/1 Ml Insuln.pen 5 UNITS SUBQ DAILY for 30 Days, EA Polyethylene Glycol 3350* (Miralax*) 17 Gm Powd.pack 17 GM GT DAILYPRN PRN for 30 Days, PACK Discharge Discharge Disposition Patient was discharged to SNF/Subacute Facility(03) Discharge Diagnoses: Yuri (Marielena)Kathy NP Apr 02, 2017 13:08
--- NOTE | 2017-04-03 12:40 | Discharge Summary 2 SIG ---
DATE OF ADMISSION: 03/12/2017 DATE OF DISCHARGE: 04/01/2017 Reason For Admission: 81-year-old female with multiple medical problems including diabetes, dysphagia, and G-tube, was sent from the snf facility for evaluation due to the hypoxemia and fever. In the emergency room, the patient was placed on 100% nonrebreathing mask, required urgent intubation, and was diagnosed with pneumonia and transferred to ICU. ADMITTING DIAGNOSES: 1. Acute respiratory failure, requiring intubation. 2. Severe sepsis. 3. Pneumonia. 4. Acute renal failure. 5. Dysphagia. 6. G-tube. 7. Advanced dementia. Hospital Course: The patient was initially admitted to ICU. Ventilator support provided. Pulmonary toilet provided. Chest x-ray and ABG were followed up on a daily basis. The patient was started on a weaning protocol. ID specialist closely follows. Patient initially started on empiric antibiotics. Sputum culture revealed MRSA. ID specialist optimized antibiotic regimen. Initially, evidence of acute renal failure. The patient was on the IV fluids. Initially also evidence of hypernatremia with initial sodium -151. Initial creatinine -1.6 and BUN -56. With IV fluids, sodium back to normal. Acute renal failure resolved. Renal ultrasound revealed right echogenic kidney, suggesting longstanding renal artery stenosis. IV fluid was discontinued. Health Care Marketing Manager followed. Echocardiogram revealed ejection fraction of 65% and right ventricular systolic pressure of 37. Potassium was replaced. Anemia workup was consistent with anemia of chronic disease. The patient required transfusion of packed red blood cells. Human Resource Advisor followed. Blood sugar was managed with sliding scale of insulin and Levemir. Hemoglobin A1c- 7.2. Strict aspiration precautions were maintained. G-tube feeding was continued. DVT and GI prophylaxis provided. The patient initially with evidence of lactic acidosis. Lactic acid- 6.1, then in two hours -3.4 and the next day- 1.2. The patient was on weaning protocol. The patient failed weaning protocol and due to the prolonged intubation and failure to wean, Surgery consult was requested for placement of tracheostomy. At the same time, on 03/25/2017, the patient demonstrated episode with 2 to 1 second-degree IV block with ventricular rate 30 while awake. Cardiology consult was requested immediately. The patient was placed initially temporarily pacemaker via femoral vein. Electrophysiology consult was requested, and subsequently mechanic assistant seen and evaluated the patient and discussed with the patient's daughter further plan. Daughter agreed to placement of permanent pacemaker. The patient subsequently undergone on 03/26/2017 permanent dual-chamber pacemaker placement. Afterwards, the patient undergone tracheostomy on 03/28/2017 ABG were stable on current ventilator setting. ventilator settings were kept as is and titrated as needed. The patient was on antibiotics for bilateral pneumonia, MRSA. Urine culture negative. Blood culture negative. Initially blood culture 07/25 revealed Staph coag-negative, likely contaminant as per ID. Prior to placement of pacemaker, ID clearance was given for procedure. The patient was hemodynamically stable. Blood pressure and heart rate were stable. Pacing on the telemetry. Ventilator support and pulmonary toilet provided. Chest x-ray with improvement. The patient status post antibiotic treatment, afebrile, no leukocytosis. Infectious Disease doctor recommended to observe the patient off antibiotics. Acute renal failure and hypernatremia resolved, which were likely due to dehydration. Nephrology cleared the patient for discharge. The patient required additional transfusion of one unit of packed red blood cells on 03/31/2017. The aptietn was stable for transfer to snf facility. FINAL DIAGNOSES: 1. Severe sepsis with multiorgan failure. 2. Acute hypoxemic respiratory failure, requiring intubation. 3. Failure to wean. 4. Status post tracheostomy on 03/28/2017. 5. Bilateral pneumonia with Methicillin-resistant Staphylococcus aureus. 6. Intermittent complete heart block. 7. Status post permanent dual-chamber pacemaker placement on 03/26/2017. 8. Acute renal failure likely due to dehydration, resolved. 9. Dehydration. 10. Hypernatremia due to dehydration, resolved. 11. Hyperglycemia , resolved. 12. Diabetes mellitus type 2. 13. Lactic acidosis, resolved. 14. Advanced dementia. 15. Dysphagia, gastrostomy tube. 16. Anemia of chronic disease requiring blood transfusion. 17. Hypokalemia, resolved. DISCHARGE MEDICATIONS: See medication reconciliation list. Discharge Instructions: The patient was discharged to subacute snf facility. Followup: Follow up with medical doctor and pecan grower at the facility. Umu Burton M.D. Kathy Welch N.P. (Vanchtein) DR: Nick JOB#: [id number] CC: FRED
== END 2017-04-01 19:40 | DRG 4 ==
LOC: EDBD 01:22 → EMR 01:34 → ICU 03:39 → EDBEDREQ 05:47 → 2W 03-29 16:13
PROC: 06HM33Z Insertion of Infusion Device into Right Femoral Vein, Percutaneous Approach (ICD-10-PCS; principal; 2017-03-12)
PROC: 5A1955Z Respiratory Ventilation, Greater than 96 Consecutive Hours (ICD-10-PCS; principal; 2017-03-12)
PROC: B54BZZA Ultrasonography of Right Lower Extremity Veins, Guidance (ICD-10-PCS; principal; 2017-03-12)
PROC: 0BH17EZ Insertion of Endotracheal Airway into Trachea, Via Natural or Artificial Opening (ICD-10-PCS; principal; 2017-03-12)
PROC: 5A1223Z Performance of Cardiac Pacing, Continuous (ICD-10-PCS; 2017-03-25)
PROC: 0JH606Z Insertion of Pacemaker, Dual Chamber into Chest Subcutaneous Tissue and Fascia, Open Approach (ICD-10-PCS; 2017-03-26)
PROC: 02H63JZ Insertion of Pacemaker Lead into Right Atrium, Percutaneous Approach (ICD-10-PCS; 2017-03-26)
PROC: 02HK3JZ Insertion of Pacemaker Lead into Right Ventricle, Percutaneous Approach (ICD-10-PCS; 2017-03-26)
PROC: 0B110F4 Bypass Trachea to Cutaneous with Tracheostomy Device, Open Approach (ICD-10-PCS; 2017-03-28)
DX: A41.9 Sepsis, unspecified organism (principal); R65.21 Severe sepsis with septic shock; J15.212 Pneumonia due to Methicillin resistant Staphylococcus aureus; N17.9 Acute kidney failure, unspecified; I44.2 Atrioventricular block, complete; D68.9 Coagulation defect, unspecified; E87.0 Hyperosmolality and hypernatremia; E11.65 Type 2 diabetes mellitus with hyperglycemia; L89.153 Pressure ulcer of sacral region, stage 3; J96.01 Acute respiratory failure with hypoxia; I69.951 Hemiplegia and hemiparesis following unspecified cerebrovascular disease affecting right dominant side; N39.0 Urinary tract infection, site not specified; Z99.11 Dependence on respirator [ventilator] status; F03.90 Unspecified dementia, unspecified severity, without behavioral disturbance, psychotic disturbance, mood disturbance, and anxiety; Z93.1 Gastrostomy status; Z74.01 Bed confinement status; D63.8 Anemia in other chronic diseases classified elsewhere; R00.1 Bradycardia, unspecified; B35.6 Tinea cruris; E87.6 Hypokalemia
CPT/HCPCS: 31500; 36415; 36600; 71010; 76001; 76775; 80048; 80053; 80061; 80202; 81001; 81003; 82270; 82378; 82550; 82553; 82607; 82728; 82746; 82803; 82962; 83010; 83036; 83540; 83550; 83605; 83615; 83735; 83880; 84100; 84133; 84300; 84443; 84484; 84550; 85007; 85025; 85060; 85384; 85610; 85730; 86140; 86703; 86850; 86900; 86901; 86920; 87040; 87070; 87081; 87086; 87181; 87205; 89050; 93005; 93306; 94002; 94003; 94150; J1815; J2250; S5561